=== PATIENT | female | born 1955 | race Caucasian/White ===

== ENCOUNTER 2024-06-23 01:11 | Inpatient (IN) | payer MEDICAID, SELFPAY ==
[2024-06-23] VITALS (10 sets, daily range): BP systolic 108–134; BP diastolic 61–89; PULSE 70–84; RESP 16–97; TEMP 36.1–37.2; O2SAT 97–100; BMI 23.5; BMI 20.3
--- NOTE | 2024-06-23 01:53 | EDNOTE_ITS ---
Lower Extremity Injury RME/HPI General Chief Complaint: Extremity Injury, Lower Stated Complaint: LT LEG PAIN Time Seen by Provider: 06/23/24 01:17 Arrival date/time: 06/23/24 01:11 Limitations: no limitations RME / HPI RME / HPI Narrative: Dr. Hager's Main ED Evaluation: 69yo female JUAN MANUEL from home presents to the ED for a chief complaint of left hip pain. Patient states she slipped and fell off her commode yesterday morning after trying to transfer herself from the commode to the bed. She states she hit her left-side and did hit her head, but denies any loss of consciousness. She endorses having LLE pain and a headache. She denies any neck pain, chest pain, abdominal pain, back pain or any other associated symptoms. Patient's son reports giving the patient Tylenol without any improvement. Per EMS, patient is on Plavix. Related Data Home Medications ?Medication ?Instructions ?Recorded ?Confirmed clopidogrel 75 mg tablet (Plavix) 75 mg PO QDAY 10/31/19 04/23/21 isosorbide mononitrate 60 mg 60 mg PO QDAY 10/31/19 04/23/21 tablet,extended release 24 hr ezetimibe 10 mg tablet 10 mg PO QDAY 02/18/20 04/23/21 atorvastatin 20 mg tablet 20 mg PO HS 07/23/20 04/23/21 aspirin 81 mg tablet,delayed 81 mg PO QAM 04/23/21 04/23/21 release Previous Rx's ?Medication ?Instructions ?Recorded acetaminophen 500 mg capsule 1,000 mg (2 x 500 mg) PO Q6H PRN 05/17/21 fever or pain #30 caps lisinopril 10 mg tablet 10 mg PO QDAY 30 days #30 tabs 11/19/22 levetiracetam 1,000 mg tablet 1,000 mg PO BID #60 tabs 05/08/24 levofloxacin 250 mg tablet 250 mg PO Q24H #2 tabs 05/08/24 metformin 1,000 mg tablet 1,000 mg PO BID #60 tabs 05/08/24 metoprolol succinate 50 mg capsule 50 mg PO QDAY #30 ea 05/08/24 sprinkle, ext. release 24 hr Allergies Allergy/AdvReac Type Severity Reaction Status Date / Time lettuce Allergy Severe SWELLING Verified 06/23/24 01:42 Penicillins Allergy Severe HIVES AND Verified 06/23/24 01:42 RESPIRATORY PROBLEMS shellfish derived Allergy Severe Rash Verified 06/23/24 01:42 adhesive Allergy Mild Blister Verified 06/23/24 01:42 iodine Allergy Mild RASH AND Verified 06/23/24 01:42 BLISTERS jaramillo pepper [green pepper] Allergy Unknown RASH, Verified 06/23/24 01:42 SWELLING, SORE TONGUE egg Allergy Unknown RASH Verified 06/23/24 01:42 Review of Systems Review of Systems Systems Reviewed: All systems reviewed, normal except as documented Past Medical History Past Medical History NEUROLOGIC: Positive Neurological Disorders, Cerebrovascular Accident, Transient Ischemic Attacks (TIA) and Seizures CARDIAC: Positive Cardiac Disorders, Myocardial Infarction, Angina, Coronary Artery Disease, Atherosclerotic Heart Disease, Hypercholesterolemia, Congestive Heart Failure, Edema and Hypertension RESPIRATORY: Positive Asthma; Negative Chronic Obstructive Pulmonary Disease (COPD) GASTROINTESTINAL: Positive Gastrointestinal Disorders, Gastroesophageal Reflux Disease and Obesity GENITOURINARY: Negative Genitourinary Disorders or Renal Disease MUSCULOSKELETAL: Positive Musculoskeletal Disorders, Arthritis, Degenerative Joint Disease and Osteomyelitis ENDOCRINE: Positive Endocrine Disorders, Diabetes Mellitus Type 1 and Diabetes Mellitus Type 2 HEMATOLOGIC: Negative Blood Disorders PSYCHO/SOCIAL: Positive Depression OTHER HISTORY: Positive Hospitalization, Falls, Blood Transfusions, Chemotherapy and Cancer; Negative Blood Transfusion Reaction, Anesthesia Reactions, Organ Transplant, Radiation Therapy, Hyperbaric Therapy, MRSA, Vancomycin-Resistant Enterococci or Measles Family History FAMILY HISTORY: Positive Family Respiratory Disorders, Family Cardiac Disorders, Family Cancer and Family Surgery; Negative Family Gastrointestinal Problems or Family Anesthesia Reaction Surgical History SURGICAL: Positive Cardiac Surgery, Coronary Artery Bypass Graft, Coronary Stent, Joint Replacement and Hysterectomy; Negative Organ Transplant Social History SMOKING STATUS: Never smoker SECOND HAND EXPOSURE: No SUBSTANCE USE: does not use ED Exam General Limitations: Present no limitations General appearance: Present alert, in no apparent distress and cachectic Head Head exam: Present other (abrasion to the left frontal temporal area without laceration; small hematoma, no step-off) Eye Eye exam: Present normal appearance, PERRL and EOMI ENT ENT exam: Present normal exam, normal oropharynx and mucous membranes moist Neck Neck exam: Present normal inspection, full ROM and trachea midline Chest Chest inspection: Present normal inspection and symmetric chest wall rise Respiratory Respiratory exam: Present normal lung sounds bilaterally Cardiovascular Cardiovascular exam: Present regular rate, normal rhythm and normal heart sounds Abdominal Exam Abdominal exam: Present soft and normal bowel sounds Extremities Exam Extremities exam: Present other (left hip pain on palpation without any deformity or ecchymosis; anterior left femur pain on palpation, will not move her knee, no bony tenderness, swelling or ecchymosis; missing all toes on the left foot) Back Exam Back exam: Present normal inspection and full ROM; Absent tenderness, CVA tenderness (R), CVA tenderness (L) or paraspinal tenderness Neurological Exam Neurological exam: Present alert, oriented X3 and CN II-XII intact Psychiatric Psychiatric exam: Present normal affect and normal mood Skin Skin exam: Present warm, dry, intact and normal color Course Quality Measures none Orders Category Date Time Status CT cervical spine wo con Stat Exams 06/23/24 02:[address] head/brain wo con Stat Exams 06/23/24 02:57 Taken XR femur LT 2V Stat Exams 06/23/24 05:04 Ordered XR hip LT w pelvis 2-3V Stat Exams 06/23/24 05:03 Ordered XR knee LT 3V Stat Exams 06/23/24 05:03 Ordered CBC Stat Lab 06/23/24 02:45 Completed CMP [Comprehensive Metabolic Panel] Stat Lab 06/23/24 02:45 Completed PT [Prothrombin Time with INR] Stat Lab 06/23/24 02:45 Completed PTT [Partial Thromboplastin Time] Stat Lab 06/23/24 02:45 Completed Urinalysis Stat Lab 06/23/24 03:00 Ordered Sodium Chloride 0.9% 500 ml [Ns] 500 ml Med 06/23/24 03:00 Discontinued IV 999 mls/hr fentaNYL INJ [Sublimaze Inj] Med 06/23/24 03:04 Discontinued 25 mcg IVP X1 ONE fentaNYL INJ [Sublimaze Inj] Med 06/23/24 05:48 Discontinued 25 mcg IVP X1 ONE Vital Signs Vital signs: Vital Signs Temperature 98 F 06/23/24 01:14 Pulse Rate 77 06/23/24 01:14 Respiratory Rate 18 06/23/24 01:14 Blood Pressure 134/89 H 06/23/24 01:14 Pulse Oximetry (%) 99 06/23/24 01:14 Oxygen Delivery Method Room Air 06/23/24 01:14 Pulse ox is 99% on room air, which is normal according to my interpretation. Extremity Injury, Lower Patient data External records reviewed:: [facility] previous records (Per chart review, patient was admitted here on 05/05/24 for a UTI.) Clinical information provided by:: patient and EMS Social determinants that could affect healthcare access:: none Patient has the following chronic illnesses:: DM, CVA, HTN, TIA, seizures, HLD, CAD, RI, GERD, asthma, osteomyelitis, coronary stent How is presenting disease/condition affected by chronic disease/condition?: uneffected by Evaluation data The following diagnostics were reviewed and interpreted by me:: lab results and radiology exam(s) Lab and/or radiology exams considered but not ordered:: none Interpretation Summary: WBC count is elevated at 14.4, HnH is stable at 10.6/31.5, Potassium is 5.2, Glucose is elevated at 266, LFTs are slightly elevated, according to my interpretation. ------ I have personally reviewed the radiology data and agree with the radiologist's interpretation below: Telerad Preliminary Report Draft Patient: JENARO ANTONY [facility]. Record#: [id number] Birthdate: 1955 Age/Sex: 69 / F Location: [facility] Attending Dr: Ordering Physician: Date of Service: Procedure(s): Accession Number(s): cc: ~ CT scan of the head without intravenous contrast (axial sections with sagittal and coronal reformats) June 23, 2024 0320 hours Clinical History: 69 yo w fall from bed, abrasion on left parietal. Comparison: CT of May 05, 2024. Findings: Chronic encephalomalacia in the right occipital lobe. There is no evidence of intracranial hemorrhage, mass effect or midline shift. There are periventricular white matter hypodensities, compatible with chronic small vessel ischemia. There is moderate volume loss. The calvarium is intact. The mastoid air cells and the visualized paranasal sinuses are clear. Impression: No evidence of intracranial hemorrhage, midline shift or calvarial fracture. Periventricular chronic small vessel ischemia and volume loss. Report Electronically Signed By: Thomas Ballesteros 06/23/2024 4:05:54 AM [EST] Telerad Preliminary Report Draft Patient: JENARO ANTONY [facility]. Record#: [id number] Birthdate: 1955 Age/Sex: 69 / F Location: [facility] Attending Dr: Ordering Physician: Date of Service: Procedure(s): Accession Number(s): cc: ~ CT scan of the cervical spine without intravenous contrast (axial sections with sagittal and coronal reformats) June 23, 2024 0322 hours Clinical History: [id number] fall out of bed. Comparison: CT of April 01, 2021. Findings: There is no fracture or subluxation. The prevertebral soft tissues are unremarkable. Degenerative changes of the cervical spine. Vascular calcification. Impression: No evidence of fracture or subluxation. Report Electronically Signed By: Thomas Ballesteros 06/23/2024 4:07:21 AM [EST Medications / Prescriptions Medications or Prescriptions considered but not ordered:: none Medication administrations:: Medication Administration History Discontinued Medications Fentanyl Citrate (Fentanyl Cit Inj 50 Mcg/Ml Amp 2ml) 25 mcg IVP X1 ONE Stop: 06/23/24 03:05 Last Admin: 06/23/24 03:11 Dose: 25 mcg Documented By: YENY Fentanyl Citrate (Fentanyl Cit Inj 50 Mcg/Ml Amp 2ml) 25 mcg IVP X1 ONE Stop: 06/23/24 05:49 Sodium Chloride (Ns) 500 mls @ 999 mls/hr IV .Q31M ONE Stop: 06/23/24 03:30 Last Infusion: 06/23/24 04:25 Dose: Infused Documented By: PEDRO LUIS Admin: 06/23/24 03:12 Dose: 999 mls/hr Documented By: YENY see above, if any Consultations Consultation(s) initiated? (list below): No Diagnosis Extremity Injury, Lower Differential Diagnosis: other (fx, ICH, concussion, fall with injury, fall without injury) Most likely diagnosis given after review of the tests above:: see below Admission Indicated Admission indicated?: not indicated Admission Request Was there a request for admission?: No Disposition Plan Disposition Plan: other (specify) (Signed out to Dr. Barfield at 0600 pending x-rays.) Discharge Plan Plan Patient Disposition: HOME (Self Care) Patient condition on transfer: Stable Prescriptions/Referrals Prescriptions/Med Rec: No Action clopidogrel [Plavix] 75 mg Tablet 75 mg PO QDAY isosorbide mononitrate 60 mg Tablet Extended Release 24 Hr 60 mg PO QDAY ezetimibe 10 mg Tablet 10 mg PO QDAY atorvastatin 20 mg Tablet 20 mg PO HS aspirin 81 mg tablet,delayed release (DR/EC) 81 mg PO QAM Patient Comments: TAKE ONE TABLET BY MOUTH EVERY DAY IN THE MORNING acetaminophen 500 mg capsule 1,000 mg PO Q6H PRN (Reason: fever or pain) Qty: 30 0RF lisinopril 10 mg tablet 10 mg PO QDAY 30 Days Qty: 30 2RF levofloxacin 250 mg tablet 250 mg PO Q24H Qty: 2 0RF levetiracetam 1,000 mg tablet 1,000 mg PO BID Qty: 60 0RF metoprolol succinate 50 mg capsule,sprinkle,ER 24hr 50 mg PO QDAY Qty: 30 0RF metformin 1,000 mg tablet 1,000 mg PO BID Qty: 60 0RF Referrals: Wendy New FNP [Primary Care Provider] - In 1 week Problem List Clinical Impression: Headache Patient/Caregiver Discharge Instructions Diet Instructions: Stay hydrated with Pedialyte and Gatorade. Education Materials: Self-Care for Headaches Additional Instructions: Return to the emergency department worsening symptoms or any other concerns. You can take [id number] Tylenol 650 mg 3 times a day for the next 5 days. Print Language: French Stand Alone Forms: [facility] Award Info., Patient Portal Info Letter
--- NOTE | 2024-06-23 02:54 | XR_ITS ---
Examination: CT cervical spine without contrast 2-D sagittal reconstructions 2-D coronal reconstructions 3-D reconstructions. Exam date and time:June 23, 2024 0322 hrs. Indications: Patient fell out of bed this morning with injury to the neck, neck pain Comparison: 04/02/2021 CTDI:vol (mGy) 11.56 DLP: (mGycm) 85 Technique: Multiple 2 mm axial sections of the cervical spine have been obtained. The coronal and sagittal reconstructions have been obtained. 3-D reconstructions have been obtained. Low dose protocols were performed. One or more of the following dose reduction techniques were used; automated exposure control, adjustment of the mA and/or KV according to patient size, use of iterative reconstruction technique. Findings: Axial sections demonstrate intact base of the skull. C1 exhibit satisfactory relationship to the odontoid. No acute cervical vertebral body fracture seen. Alignment posterior spinous processes satisfactory. Impression: No acute cervical fracture.
--- NOTE | 2024-06-23 02:57 | XR_ITS ---
Examination: CT brain head without contrast. 2-D sagittal coronal reconstructions Date and time of exam:June 23, 2024 0320 hrs. Indications: Patient fell from bed today with injury to the head, head pain CTDI: vol (mGy):43.60 DLP: (mGycm):892 Technique: Multiple CT axial sections of the brain have been obtained, 5 mm slice thickness. Contrast has not been administered. 2-D sagittal, coronal reconstructions have been obtained Low dose protocols were performed. One or more of the following dose reduction techniques were used; automated exposure control, adjustment of the mA and/or KV according to patient size, use of iterative reconstruction technique. Findings: No significant ventricular enlargement. Old infarct right occipital lobe is stable compared with May 05, 2024 Intra-axial or extra-axial hemorrhage density is not seen. No mass effect or midline shift Basal cisterns are not remarkable. Fourth ventricle is midline. Cranial vault intact. Impression: Negative for acute hemorrhage, mass effect or midline shift
[2024-06-23] MEDS: fentaNYL CIT INJ 50 mCg/ML AMP 2ML 25 MCG IVP ×2 (03:11→05:52)
[2024-06-23] MEDS: SODIUM CHLORIDE 0.9% 500 ML 500 ML 999 ML IV (03:12)
[2024-06-23 03:19] LABS: Basophils % (Auto) 0 % (0-2.5); Eosinophils % (Auto) 0 % (0-10); Hematocrit 31.5 % (36.0-46.0); Hemoglobin 10.6 g/dL (12.0-16.0); Immature Granulocytes % (Auto) 0 % (0-0); Immature Granulocytes Auto 0.06 Thou/mm3 (0.00-0.00); Lymphocytes % (Auto) 7 % (10-50); Mean Corpuscular HGB Conc 33.7 g/dl (31.0-37.0); Mean Corpuscular Hemoglobin 28.3 pg (25.0-35.0); Mean Corpuscular Volume 84 fL (80-100); Monocytes # (Auto) 1.2 Thou/mm3 (0.0-0.8); Monocytes % (Auto) 8 % (0-12); Neutrophils # (Auto) 12.2 Thou/mm3 (1.8-7.7); Neutrophils % (Auto) 84 % (37-80); Nucleated Red Blood Cell % 0 /100 WBC (0); Platelet Count 196 Thou/mm3 (140-440); RDW Standard Deviation 50.8 fL (36.4-46.3); Red Blood Count 3.75 Miln/mm3 (4.00-5.20); White Blood Count 14.4 Thou/mm3 (3.6-11.0)
[2024-06-23 03:47] LABS: Partial Thromboplastin Time 26.8 Seconds (22.0-36.0); Prothrombin Time 11.1 Seconds (9.0-12.2)
[2024-06-23 03:49] LABS: Alanine Aminotransferase 79 U/L (10-49); Albumin, Serum 4.1 gm/dL (3.4-4.8); Albumin/Globulin Ratio 1.6 (1.2-2.2); Alkaline Phosphatase 117 U/L (46-116); Anion Gap 12 (7-16); Aspartate Amino Transferase 39 U/L (0-34); BUN/Creatinine Ratio 41 Ratio (12-20); Bilirubin,Total 0.4 mg/dL (0.3-1.2); Blood Urea Nitrogen 53 mg/dL (9-23); Calcium 9.7 mg/dL (8.3-10.6); Calcium (Corrected) 9.7 mg/dL (8.5-10.1); Carbon Dioxide 24.6 mMol/L (20.0-31.0); Chloride 102 mMol/L (98-107); Creatinine (Component) 1.3 mg/dL (0.6-1.3); Estimated Creatinine Clearance 38.6 mL/min (>60); Globulin 2.5 gm/dL (2.3-3.5); Glucose 266 mg/dL (74-106); Osmolality,Calculated 300 (275-295); Potassium 5.2 mMol/L (3.4-5.1); Sodium 139 mMol/L (136-145); Total Protein 6.6 gm/dL (5.7-8.2); eGFR 44 See Note
--- NOTE | 2024-06-23 04:06 | PRELIM_ITS ---
CT scan of the head without intravenous contrast (axial sections with sagittal and coronal reformats) June 23, 2024 0320 hoursClinical History: 69 yo w fall from bed, abrasion on left parietal.Stanislav rison: CT of May 05, 2024.Findings:Chronic encephalomalacia in the right occipital lobe.There is no evidence of intracranial hemorrhage, mass effect or midline shift. There are periventricular white matter hypodensities, compatible with chronic small vessel ischemia. There is moderate volume loss. The calvarium is intact. The mastoid air cells and the visualized paranasal sinuses are clear.Impress ion:No evidence of intracranial hemorrhage, midline shift or calvarial fracture.Periventricular chron ic small vessel ischemia and volume loss. Report Electronically Signed By: Thomas Ballesteros 4 4:05:54 AM [EST]
--- NOTE | 2024-06-23 04:08 | PRELIM_ITS ---
CT scan of the cervical spine without intravenous contrast (axial sections with sagittal and coronal reformats) June 23, 2024 0322 hours Clinical History: [id number] fall out of bed. Comparison: CT of April 01, 2021.Findings:There is no fracture or subluxation. The prevertebral soft tissues are unremarkable.Degenerative changes of the cervical spine. Vascular calcification.Impression:No ev idence of fracture or subluxation. Report Electronically Signed By: Thomas Ballesteros 06/23/2024 4:07: 21 AM [EST]
--- NOTE | 2024-06-23 05:03 | XR_ITS ---
Examination: Knee, left , 3 views Technique: Knee AP, lateral, oblique 3 views Date and time of exam: June 23, 2024 0539 hrs. Indications: Patient fell from bed this morning with injury to the knee, knee pain Findings: Severe osteopenia No definite fracture Advanced joint narrowing Small knee effusion Heavy soft tissue vascular calcification Impression: No acute fracture depicted Given the severe osteopenia, recommend short-term follow-up knee films as clinically warranted
--- NOTE | 2024-06-23 05:03 | XR_ITS ---
Examination:Left hip AP, lateral, AP pelvis 3 views Technique: Hip AP lateral, AP pelvis, 3 views Exam date and time:June 23, 2024 0539 hrs. Indications: Patient fell from bed this morning with injury to the hip, hip pain Findings: Displaced left hip fracture, partly intertrochanteric and low femoral neck with significant upward displacement of the left femoral shaft Right hip bones of the pelvis intact Impression: Displaced left hip fracture
--- NOTE | 2024-06-23 05:04 | XR_ITS ---
Examination: Left femur 2 views Technique: AP lateral left femur 2 views Exam date and time: June 13, 2024 0559 hrs. Indications: Patient fell from bed this morning with injury to the femur, hip pain Findings: Displaced left hip fracture, partly intertrochanteric and partly low femoral neck Significant upward displacement of the femoral shaft The examination is labeled femur but the images do not include the hip and proximal shaft of the femur Impression: Displaced left hip fracture These films do not include most of the femoral shaft
--- NOTE | 2024-06-23 06:31 | PD.EDADDENDU ---
Emergency Room Addendum Addendum Narrative: 0600: Care assumed from Dr. Hager, the previous shift emergency physician. Past medical, surgical, social and family history reviewed. Vitals and home medications reviewed. I will assume the care of the patient at this time, pending XR reports. Please refer to the emergency department record for history and examination from initial visit.? Nursing notes reviewed by me. Vital signs reviewed by me. [facility] medical records reviewed by me. 0705: 69 year old female presented to the ED BIBA from home for evaluation of pain after ground level mechanical fall 3 days ago. States since fall she is unable to get up and walk. At home is getting around with a wheelchair. States she has had surgery on one of her legs
--- NOTE | 2024-06-23 07:10 | EDNOTE_ITS ---
Lower Extremity Injury RME/HPI General Chief Complaint: Extremity Injury, Lower Stated Complaint: LT LEG PAIN Time Seen by Provider: 06/23/24 01:17 Arrival date/time: 06/23/24 01:11 Limitations: no limitations RME / HPI RME / HPI Narrative: Dr. Hager's Main ED Evaluation: 69yo female JUAN MANUEL from home presents to the ED for a chief complaint of left hip pain. Patient states she slipped and fell off her commode yesterday morning after trying to transfer herself from the commode to the bed. She states she hit her left-side and did hit her head, but denies any loss of consciousness. She endorses having LLE pain and a headache. She denies any neck pain, chest pain, abdominal pain, back pain or any other associated symptoms. Patient's son reports giving the patient Tylenol without any improvement. Per EMS, patient is on Plavix. 0600: Care assumed from Dr. Hager, the previous shift emergency physician. Past medical, surgical, social and family history reviewed. Vitals and home medications reviewed. I will assume the care of the patient at this time, pending XR reports. This is a 69 year old female with history of CVA, CAD s/p CABG, diabetes, and seizures presented to the ED JUAN MANUEL from home for evaluation of left hip pain after ground level mechanical fall 3 days ago. States since fall she is unable to get up and walk. At home is getting around with a wheelchair. States she has had surgery on her left foot before and per EMR review on 11/12/2022 left foot incision and drainage, debridement of non viable soft tissue, and transmetatarsal amputation. Related Data Home Medications ?Medication ?Instructions ?Recorded ?Confirmed clopidogrel 75 mg tablet (Plavix) 75 mg PO QDAY 10/31/19 04/23/21 isosorbide mononitrate 60 mg 60 mg PO QDAY 10/31/19 04/23/21 tablet,extended release 24 hr ezetimibe 10 mg tablet 10 mg PO QDAY 02/18/20 04/23/21 atorvastatin 20 mg tablet 20 mg PO HS 07/23/20 04/23/21 aspirin 81 mg tablet,delayed 81 mg PO QAM 04/23/21 04/23/21 release Previous Rx's ?Medication ?Instructions ?Recorded acetaminophen 500 mg capsule 1,000 mg (2 x 500 mg) PO Q6H PRN 05/17/21 fever or pain #30 caps lisinopril 10 mg tablet 10 mg PO QDAY 30 days #30 tabs 11/19/22 levetiracetam 1,000 mg tablet 1,000 mg PO BID #60 tabs 05/08/24 levofloxacin 250 mg tablet 250 mg PO Q24H #2 tabs 05/08/24 metformin 1,000 mg tablet 1,000 mg PO BID #60 tabs 05/08/24 metoprolol succinate 50 mg capsule 50 mg PO QDAY #30 ea 05/08/24 sprinkle, ext. release 24 hr Allergies Allergy/AdvReac Type Severity Reaction Status Date / Time lettuce Allergy Severe SWELLING Verified 06/23/24 01:42 Penicillins Allergy Severe HIVES AND Verified 06/23/24 01:42 RESPIRATORY PROBLEMS shellfish derived Allergy Severe Rash Verified 06/23/24 01:42 adhesive Allergy Mild Blister Verified 06/23/24 01:42 iodine Allergy Mild RASH AND Verified 06/23/24 01:42 BLISTERS jaramillo pepper [green pepper] Allergy Unknown RASH, Verified 06/23/24 01:42 SWELLING, SORE TONGUE egg Allergy Unknown RASH Verified 06/23/24 01:42 Review of Systems Review of Systems Narrative Review of Systems: Constitutional: DENIES; Fevers Eyes: DENIES; Loss of vision Head/Ear/Nose: DENIES; Loss of hearing Throat: DENIES; Dysphagia Cardiovascular: DENIES; Chest pain, dyspnea or syncope Respiratory: DENIES; Shortness of breath Gastrointestinal: DENIES; Rectal bleeding or melena. Genitourinary: DENIES; Dysuria (painful or difficult urination) Musculoskeletal: SEE HPI +left hip pain. DENIES; Arthralgia (pain in a joint),; Skin: DENIES; Rash Neurological: DENIES; Loss of function or movement Psychiatric: DENIES; recent major life stressor, emotional problem, illicit drug use or abuse Endocrinology: DENIES; Weight change Hematologic/Lymphatic: DENIES; Abnormal bruising Allergic/Immunologic: DENIES; Urticaria (hives) Past Medical History Past Medical History NEUROLOGIC: Positive Neurological Disorders, Cerebrovascular Accident, Transient Ischemic Attacks (TIA) and Seizures CARDIAC: Positive Cardiac Disorders, Myocardial Infarction, Angina, Coronary Artery Disease, Atherosclerotic Heart Disease, Hypercholesterolemia, Congestive Heart Failure, Edema and Hypertension RESPIRATORY: Positive Asthma GASTROINTESTINAL: Positive Gastrointestinal Disorders, Gastroesophageal Reflux Disease and Obesity MUSCULOSKELETAL: Positive Musculoskeletal Disorders, Arthritis, Degenerative Joint Disease and Osteomyelitis ENDOCRINE: Positive Endocrine Disorders, Diabetes Mellitus Type 1 and Diabetes Mellitus Type 2 PSYCHO/SOCIAL: Positive Depression OTHER HISTORY: Positive Hospitalization, Falls, Blood Transfusions and Cancer Family History FAMILY HISTORY: Positive Family Respiratory Disorders, Family Cardiac Disorders, Family Cancer and Family Surgery Surgical History SURGICAL: Positive Cardiac Surgery, Coronary Artery Bypass Graft, Coronary Stent, Joint Replacement and Hysterectomy Social History SMOKING STATUS: Never smoker SECOND HAND EXPOSURE: No SUBSTANCE USE: does not use ED Exam Narrative Physical exam: Physical Exam: General: The vital signs were reviewed. The patient is non-toxic, in no apparent distress and appears healthy with a patent airway, no respiratory distress and has no apparent circulatory problems. Head & Scalp: Normocephalic, atraumatic. Face: Appears normal and is without lesions, deformity. Ears: Left external pinna appears normal. Right external pinna appears normal. Eyes: The sclera is anicteric. No obvious photophobia. The Left and Right Orbit/Lid/Conjunctiva appears normal without swelling, discoloration or in jection. Nose: The nose is without deformity, discharge or tenderness; Throat: Appears normal. The mucous membranes are pink and moist without exudates, redness or mass seen. The tongue appears normal. Neck: The neck is supple and no apparent mass or adenopathy. Chest: The chest wall is normal in size and symmetry and has no chest wall tenderness or crepitus. The patient displays normal ventilator effort without retractions, accessory muscle use and has adequate air movement bilaterally with no wheezes and no rales. Cardiovascular: Regular rate and rhythm; No murmurs, rubs, or gallops; Gastrointestinal: The abdomen appears normal. No obvious hernias or mass. The abdomen is soft and benign, non-distended, with no pain, no guarding and no rebound tenderness. Bowel sounds are present and normal sounding. No CVA tenderness. Genitourinary: Back/Spine: No obvious discomfort Extremities/Musculoskeletal/lymphatic: The bilateral upper and lower extremities are warm. There is no evidence of arterial insufficiency. There is no evidence of venous insufficiency/edema. The patient spontaneously moves bilateral upper patient's rolled onto her right side that she has pain in the left hip area with pain with any minimal movement. The right side does not appear to have any pain on palpation with minimal movement but she has so much pain on her left side it is hard to want to roll her over at this time. There is external signs of injury or trauma. Skin: The skin is warm, dry and intact. No rashes. No petechia. No purpura. No abnormal bruising. The color is appropriate with no cyanosis. Mental status/Psychiatric: Mental status is appropriate for age. The patient has no apparent delusions, visual hallucinations, no apparent aud ible hallucinations. The patient has no apparent suicidal thoughts/ideation and no apparent homicidal thoughts/ideation. Neurological: The patient is awake, alert, interactive, cordial, cooperative and is oriented to name and situation. The patient follows commands and answers historical question with no impairment. There is no visual disturbance apparent. The pupils are equal and reactive bilaterally with normal eye movements and no diplopia The bilateral upper and lower extremities have normal strength, normal range of motion and normal functioning. The gait, station and balance not tested due to acuity General Limitations: Present no limitations General appearance: Present alert, in no apparent distress and cachectic Course Quality Measures none Orders Category Date Time Status Juan [Urinary Catheter] QS Care 06/23/24 07:[address] cervical spine wo con Stat Exams 06/23/24 02:[address] head/brain wo con Stat Exams 06/23/24 02:57 Completed XR chest 1V portable Stat Exams 06/23/24 08:29 Completed XR femur LT 2V Stat Exams 06/23/24 05:04 Completed XR hip LT w pelvis 2-3V Stat Exams 06/23/24 05:03 Completed XR knee LT 3V Stat Exams 06/23/24 05:03 Completed CBC Stat Lab 06/23/24 02:45 Completed CK [Creatine Kinase] Stat Lab 06/23/24 09:00 Completed CMP [Comprehensive Metabolic Panel] Stat Lab 06/23/24 02:45 Completed PT [Prothrombin Time with INR] Stat Lab 06/23/24 02:45 Completed PTT [Partial Thromboplastin Time] Stat Lab 06/23/24 02:45 Completed UA [Urinalysis] Stat Lab 06/23/24 08:27 Completed Morphine Inj Med 06/23/24 07:44 Discontinued 2 mg IVP X1 ONE Ondansetron Inj [Zofran Inj] Med 06/23/24 07:46 Discontinued 4 mg IV X1 ONE Sodium Chloride 0.9% 1000 ml [Ns] 1,000 ml Med 06/23/24 08:25 Discontinued IV 125 mls/hr Sodium Chloride 0.9% 500 ml [Ns] 500 ml Med 06/23/24 03:00 Discontinued IV 999 mls/hr fentaNYL INJ [Sublimaze Inj] Med 06/23/24 03:04 Discontinued 25 mcg IVP X1 ONE fentaNYL INJ [Sublimaze Inj] Med 06/23/24 05:48 Discontinued 25 mcg IVP X1 ONE Vital Signs Vital signs: Vital Signs Temperature 98 F 06/23/24 01:14 Pulse Rate 77 06/23/24 01:14 Respiratory Rate 18 06/23/24 01:14 Blood Pressure 134/89 H 06/23/24 01:14 Pulse Oximetry (%) 99 06/23/24 01:14 Oxygen Delivery Method Room Air 06/23/24 01:14 Pulse ox is 99% on room air which is adequate. Extremity Injury, Lower MDM Narrative MDM Narrative:: Patient is a 69-year-old who evidently fell 3 days ago who comes in with left hip pain has an obvious intertrochanteric comminuted fracture on her x-ray. Evidently patient fell and has not been drinking well as the BUN is 53 and the creatinine is 1.3. Other labs show a white count of 14 for hemoglobin of 10.6. Osmolality is elevated at 300. AST ALT are 39 and 79 slightly elevated. UA is still pending a catheter was placed. X-rays left femur reveal a displaced hip fracture through the neck but no fracture through the shaft was seen. This was reviewed by myself. CT of the head and neck were reported negative. X-rays of the pelvis and hip again revealed a displaced hip fracture. No other fracture is seen. The UA is pending as of 0834 hrs. Patient is to be admitted we put a call out to Dr. Jolie Wallace Patient is probably quite dry due to the elevated BUN/creatinine ratio because the patient was down we will get a CPK make sure there is no rhabdo going on. Orthopedic surgeon I left a message with him and we called the hospitalist Dr. Giraldo the resident took the message and they will be admitting with Dr. Dallas. Will be hydrating this patient Patient data External records reviewed:: [facility] previous records (I reviewed admission from 05/06/2024 through 05/08/2024) and EMS form Clinical information provided by:: patient Social determinants that could affect healthcare access:: none Patient has the following chronic illnesses:: CVA, CAD s/p CABG, diabetes, and seizures How is presenting disease/condition affected by chronic disease/condition?: uneffected by Evaluation data The following diagnostics were reviewed and interpreted by me:: lab results and radiology exam(s) (CXR interpreted by myself, previous sternotomy wires, no infiltrates, normal cardiac silhouette) Lab and/or radiology exams considered but not ordered:: None Interpretation Summary: Ordering Physician: Yasmin Hager MD Date of Service: 06/23/24 Procedure(s): CT cervical spine wo con Accession Number(s): [id number] cc: Wendy New; Ángel Foster MD; Yasmin Hager MD~ Examination: CT cervical spine without contrast 2-D sagittal reconstructions 2-D coronal reconstructions 3-D reconstructions. Exam date and time:June 23, 2024 0322 hrs. Indications: Patient fell out of bed this morning with injury to the neck, neck pain Comparison: 04/02/2021 CTDI:vol (mGy) 11.56 DLP: (mGycm) 85 Technique: Multiple 2 mm axial sections of the cervical spine have been obtained. The coronal and sagittal reconstructions have been obtained. 3-D reconstructions have been obtained. Low dose protocols were performed. One or more of the following dose reduction techniques were used; automated exposure control, adjustment of the mA and/or KV according to patient size, use of iterative reconstruction technique. Findings: Axial sections demonstrate intact base of the skull. C1 exhibit satisfactory relationship to the odontoid. No acute cervical vertebral body fracture seen. Alignment posterior spinous processes satisfactory. Impression: No acute cervical fracture. Dictated By: Ángel Foster MD Signed By: <Electronically signed by Ángel Foster MD in OV> 06/23/24 0751 === Ordering Physician: Yasmin Hager MD Date of Service: 06/23/24 Procedure(s): CT head/brain wo con Accession Number(s): [id number] cc: Wendy New FINANCE CLERK; Ángel Foster MD; Yasmin Hager MD~ Examination: CT brain head without contrast. 2-D sagittal coronal reconstructions Date and time of exam:June 23, 2024 0320 hrs. Indications: Patient fell from bed today with injury to the head, head pain CTDI: vol (mGy):43.60 DLP: (mGycm):892 Technique: Multiple CT axial sections of the brain have been obtained, 5 mm slice thickness. Contrast has not been administered. 2-D sagittal, coronal reconstructions have been obtained Low dose protocols were performed. One or more of the following dose reduction techniques were used; automated exposure control, adjustment of the mA and/or KV according to patient size, use of iterative reconstruction technique. Findings: No significant ventricular enlargement. Old infarct right occipital lobe is stable compared with May 05, 2024 Intra-axial or extra-axial hemorrhage density is not seen. No mass effect or midline shift Basal cisterns are not remarkable. Fourth ventricle is midline. Cranial vault intact. Impression: Negative for acute hemorrhage, mass effect or midline shift Dictated By: Ángel Foster MD Signed By: <Electronically signed by Ángel Foster MD in OV> 06/23/24 0750 === Ordering Physician: Yasmin Hager MD Date of Service: 06/23/24 Procedure(s): XR hip LT w pelvis 2-3V Accession Number(s): [id number] cc: Wendy New; nÁgel Foster MD; Yasmin Hager MD~ Examination:Left hip AP, lateral, AP pelvis 3 views Technique: Hip AP lateral, AP pelvis, 3 views Exam date and time:June 23, 2024 0539 hrs. Indications: Patient fell from bed this morning with injury to the hip, hip pain Findings: Displaced left hip fracture, partly intertrochanteric and low femoral neck with significant upward displacement of the left femoral shaft Right hip bones of the pelvis intact Impression: Displaced left hip fracture Dictated By: Ángel Foster MD Signed By: <Electronically signed by Ángel Foster MD in OV> 06/23/24 0730 Ordering Physician: Yasmin Hager MD Date of Service: 06/23/24 Procedure(s): XR knee LT 3V Accession Number(s): [id number] cc: Wendy New; Ángel Foster MD; Yasmin Hager MD~ Examination: Knee, left , 3 views Technique: Knee AP, lateral, oblique 3 views Date and time of exam: June 23, 2024 0539 hrs. Indications: Patient fell from bed this morning with injury to the knee, knee pain Findings: Severe osteopenia No definite fracture Advanced joint narrowing Small knee effusion Heavy soft tissue vascular calcification Impression: No acute fracture depicted Given the severe osteopenia, recommend short-term follow-up knee films as clinically warranted Dictated By: Ángel Foster MD Signed By: <Electronically signed by Ángel Foster MD in OV> 06/23/24 0731 Ordering Physician: Yasmin Hager MD Date of Service: 06/23/24 Procedure(s): XR femur LT 2V Accession Number(s): [id number] cc: Wendy New; Ángel Foster MD; Yasmin Hager MD~ Examination: Left femur 2 views Technique: AP lateral left femur 2 views Exam date and time: June 13, 2024 0559 hrs. Indications: Patient fell from bed this morning with injury to the femur, hip pain Findings: Displaced left hip fracture, partly intertrochanteric and partly low femoral neck Significant upward displacement of the femoral shaft The examination is labeled femur but the images do not include the hip and proximal shaft of the femur Impression: Displaced left hip fracture These films do not include most of the femoral shaft Dictated By: Ángel Foster MD Signed By: <Electronically signed by Ángel Foster MD in OV> 06/23/24 0732 Medications / Prescriptions Medications or Prescriptions considered but not ordered:: None Medication administrations:: Medication Administration History Acetaminophen (Acetaminophen 325 Mg Tablet) 650 mg PO Q6H PRN PRN Reason: Fever >100.3 or pain 1-3 Stop: 07/23/24 09:47 Hydrocodone Bitart/Acetaminophen (Hydrocodone/Apap 5/325 Tablet) 1 tab PO Q4HR PRN PRN Reason: PAIN SCALE 4-10(Mod-Sev Stop: 06/28/24 09:47 Dextrose (Dextrose 50%-Water Inj 50 Ml Syringe) 25 ml IV Q15MIN PRN PRN Reason: BG 50-70 responsive npo pt Stop: 07/23/24 09:58 Dextrose (Dextrose 50%-Water Inj 50 Ml Syringe) 50 ml IV Q15MIN PRN PRN Reason: BG <50 OR BG <70 & pt unresponsive Stop: 07/23/24 09:58 Glucagon (Glucagon Inj 1 Mg Vial) 1 mg IM Q15MIN PRN PRN Reason: BG <70, and no IV access Sodium Chloride (Ns) 1,000 mls @ 70 mls/hr IV .[id number] ONE Stop: 06/23/24 22:42 Last Admin: 06/23/24 12:02 Dose: 70 mls/hr Documented By: TONE Insulin Human Lispro (Insulin Lispro (Admelog) 1 Unit/0.01 Ml Unit) 0 unit SC ACHS [facility]; Protocol Stop: 07/23/24 11:29 Last Admin: 06/23/24 12:02 Dose: Not Given Documented By: TONE Non-Admin Reason: Per Protocol Isosorbide Mononitrate (Isosorbide Er Mononitrate 30 Mg Tabcr) 60 mg PO QDAY [facility] Stop: 07/24/24 08:59 Levetiracetam (Levetiracetam 250 Mg Tablet) 1,000 mg PO BID [facility] Stop: 07/23/24 20:59 Morphine Sulfate (Morphine Sulf Inj 10 Mg/Ml Vial) 2 mg IVP Q4HR PRN PRN Reason: BREAKTHROUGH PAIN Stop: 06/28/24 09:47 Last Admin: 06/23/24 16:48 Dose: 2 mg Documented By: Admin: 06/23/24 12:29 Dose: 2 mg Documented By: FRANKLYN Discontinued Medications Fentanyl Citrate (Fentanyl Cit Inj 50 Mcg/Ml Amp 2ml) 25 mcg IVP X1 ONE Stop: 06/23/24 03:05 Last Admin: 06/23/24 03:11 Dose: 25 mcg Documented By: YENY Fentanyl Citrate (Fentanyl Cit Inj 50 Mcg/Ml Amp 2ml) 25 mcg IVP X1 ONE Stop: 06/23/24 05:49 Last Admin: 06/23/24 05:52 Dose: 25 mcg Documented By: YENY Heparin Sodium (Porcine) (Heparin Sod Inj 5000 Unit/Ml Vial) 5,000 unit SC BID [facility] Stop: 07/07/24 09:59 Last Admin: 06/23/24 11:20 Dose: 5,000 unit Documented By: FRANKLYN Co-signed By: TONE Sodium Chloride (Ns) 500 mls @ 999 mls/hr IV .Q31M ONE Stop: 06/23/24 03:30 Last Infusion: 06/23/24 04:25 Dose: Infused Documented By: PEDRO LUIS Admin: 06/23/24 03:12 Dose: 999 mls/hr Documented By: YENY Sodium Chloride (Ns) 1,000 mls @ 125 mls/hr IV .Q8H ONE Stop: 06/23/24 16:24 Last Infusion: 12/19/24 12:03 Dose: Infused Documented By: Admin: 06/23/24 08:51 Dose: 125 mls/hr Documented By: TONE Morphine Sulfate (Morphine Sulf Inj 10 Mg/Ml Vial) 2 mg IVP X1 ONE Stop: 06/23/24 07:45 Last Admin: 06/23/24 08:08 Dose: 2 mg Documented By: TONE Ondansetron HCl (Ondansetron Inj 2 Mg/Ml Inj 2 Ml) 4 mg IV X1 ONE; Protocol Stop: 06/23/24 07:47 Last Admin: 06/23/24 08:12 Dose: 4 mg Documented By: TONE See above Consultations Consultation(s) initiated? (list below): Yes Consultation #1 (Physician, Specialty, Details): I spoke with resident Dr. Oakes working with Dr. Dallas. Discussed patients PMHx, HPI, ED course, exam findings, labs, and radiology results. The hospitalist agree to accept the patient for admission. At this time pending call back from ortho. Time: 08:14 Consultation #2 (Physician, Specialty, Details): I spoke with ortho Dr. Bautista. Discussed patients PMHx, HPI, ED course, exam findings, labs, and radiology results. He agrees to consult. Time: 10:30 Diagnosis Most likely diagnosis given after review of the tests above:: Fall Fracture of hip, left, closed Acute dehydration Elevated transaminase level Admission Indicated Admission indicated?: indicated Admission Request Was there a request for admission?: Yes Admission Attestation Admission request attestation: Discussed case with [] from Hospitalist service regarding admission. Discussed patients ED course, exam findings, labs, and radiology results. The Hospitalist [agrees,declines] to accept the patient for admission. Disposition Plan Disposition Plan: Admit Discharge Plan Plan Patient Disposition: Admit Acute Care w/in Hospital Disposition Comment: Hospitalist admit Ortho to consult Patient condition on transfer: Stable Problem List Clinical Impression: Fall, Fracture of hip, left, closed, Acute dehydration, Elevated transaminase level Patient/Caregiver Discharge Instructions Diet Instructions: Stay hydrated with Pedialyte and Gatorade.
[2024-06-23] MEDS: MORPHINE SULF INJ 10 MG/ML VIAL 2 MG IVP ×3 (08:08→16:48)
[2024-06-23] MEDS: ONDANSETRON INJ 2 MG/ML INJ 2 ML 4 MG IV (08:12)
[2024-06-23 08:28] LABS: Collection Type, Urine Catheter
--- NOTE | 2024-06-23 08:29 | XR_ITS ---
Examination: AP chest single view Technique one AP portable semiupright chest single view Exam date and time: June 23, 2024 0834 hours Comparison May 05, 2024 INDICATIONS: Onset chest pain today. FINDINGS: Normal heart size CABG No pneumonia or pulmonary edema IMPRESSION: No pneumonia or pulmonary edema
[2024-06-23] MEDS: SODIUM CHLORIDE 0.9% 1000 ML 1,000 ML 125 ML IV (08:51)
[2024-06-23 09:15] LABS: Creatine Kinase 451 U/L (34-171)
[2024-06-23 09:25] LABS: Bilirubin,Urine 1+ (Negative); Blood,Urine Negative (Negative); Color,Urine Yellow (Lt Yel-Yel); Glucose, Urine Negative (Negative); Hyaline Casts,Urine < 1 /hpf (0-1); Ketones,Urine Trace (Negative); Leukocyte Esterase,Urine Positive (Negative); Nitrite,Urine Negative (Negative); PH,Urine 5.5 (5.0-7.0); Protein,Urine 1+ (Neg - Trace); RBC,Urine 3 /hpf (0-3); Specific Gravity,Urine 1.026 (1.001-1.035); Squamous Epithelial Cell,Urine 3 /hpf (0-5); WBC,Urine 5 /hpf (0-5)
[2024-06-23 09:27] LABS: Clarity,Urine Hazy (Clear/Hazy)
[2024-06-23 09:28] LABS: Bacteria,Urine 1+
--- NOTE | 2024-06-23 10:46 | PC.CC ---
Patient is a 69 year-old female who presented to the hospital for a hip fracture. Cecille THURMAN made [id number] contact with patient. ASW introduced self, role, and reason for visit. Patient appeared alert and oriented to self, location, and situation. Patient was pleasant and engaged in initial assessment. Patient confirmed information on demographics and reports to living at home with her son, Jorge Comer . Patient reports her son helps take care of her. Per patient, prior to being admitted to the hospital she was able to ambulate with the assistance of a walker. The patient is not able to complete her ADLs and her son helps her complete her ADLs. Patient receives primary care with Wendy New. Patient stated her Next of Kin is her son, Jorge Comer . Upon discharge patient reports she is open to going to a Assisted Facility if she needs rehab services. account services representative to follow-up with any discharge needs.
[2024-06-23] MEDS: HEPARIN SOD INJ 5000 UNIT/ML VIAL SC (11:20)
[2024-06-23] MEDS: SODIUM CHLORIDE 0.9% 1000 ML 1,000 ML 70 ML IV (12:02)
--- NOTE | 2024-06-23 13:43 | ECHO_ITS ---
Transthoracic Echo Report Ht (in): 67 Wt (lb): 150 Exam Location: Portable Status: Inpatient Correctional Captain: Hillary Hoover Indications: Procedure Performed: BP: 114 / 59 HR: 88 Rhythm: Tachycardia Technical Quality: Technically difficult study MEASUREMENTS (Male / Female) Normal Values 2D ECHO LV Diastolic Diameter PLAX 3.7 cm 4.2 - 5.9 / 3.9 - 5.3 cm LV Systolic Diameter PLAX 2.8 cm IVS Diastolic Thickness 1.0 cm 0.6 - 1.0 / 0.6 - 0.9 cm LVPW Diastolic Thickness 0.9 cm 0.6 - 1.0 / 0.6 - 0.9 cm LV Relative Wall Thickness 0.5 LVOT Diameter 1.7 cm Ascending Aorta Diameter 2.6 cm M-MODE Aortic Root Diameter MM 2.5 cm LA Systolic Diameter MM 3.5 cm LA Ao Ratio MM 1.4 AV Cusp Separation MM 1.3 cm DOPPLER AV Peak Velocity 304.8 cm/s AV Peak Gradient 37.2 mmHg AV Mean Gradient 20.2 mmHg AV Velocity Time Integral 54.9 cm LVOT Peak Velocity 96.9 cm/s LVOT Peak Gradient 3.8 mmHg LVOT Velocity Time Integral 17.0 cm LVOT Cardiac Index 1887.8 cm?/min?m? AV Area Cont Eq vti 0.7 cm? AV Area Cont Eq pk 0.7 cm? MV Peak Velocity 159.5 cm/s MV Peak Gradient 10.2 mmHg MV Mean Velocity 99.7 cm/s MV Mean Gradient 5.0 mmHg MV Area PHT 5.5 cm? Mitral E Point Velocity 102.0 cm/s Mitral A Point Velocity 144.0 cm/s Mitral E to A Ratio 0.7 LV E' Lateral Velocity 7.4 cm/s Mitral E to LV E' Lateral Ratio 13.8 LV E' Septal Velocity 7.1 cm/s Mitral E to LV E' Septal Ratio 14.4 FINDINGS Left Ventricle Normal left ventricular size, systolic function with no obvious regional wall motion abnormalities. Mild LVH. The ejection fraction is visually estimated at 60-65 %. Right Ventricle The right ventricle is normal in size and systolic function. Left Atrium The left atrium is normal by two-dimensional, color flow and Doppler imaging with no structural abnormalities, no thrombus formation present. Right Atrium The right atrium is normal by two-dimensional imaging, color flow and Doppler imaging with no struct ural abnormalities, no thrombus formation present. Atrial Septum The interatrial septum appears normal with no evidence of a shunt. Aorta The aorta is normal by two-dimensional, color flow and Doppler interrogation. Mitral Valve The mitral valves are mildly thicken. There is mild mitral valve regurgitation. Aortic Valve The aortic valve is trileaflet. Moderate stenosis, mean gradient 21mmHg, vmax 3.0m/s. There is mild aortic valve regurgitation. Tricuspid Valve The tricuspid valve is normal by two-dimensional, color flow and Doppler interrogation. There is tra ce tricuspid valve regurgitation. Pulmonic Valve There is no significant pulmonic valve regurgitation. Vessels The pulmonary artery appears normal. The inferior vena cava pulmonary and hepatic veins appear carl l. Pericardium The pericardium is normal by two-dimensional imaging. There is no significant pericardial effusion. CONCLUSIONS Indication: Cardiac clearance Normal LV size and function. Mild LVH. Stage I diastolic dysfunction. Estimated EF 60-65% Normal RV size and function. Moderate AV stenosis, mean gradient 21mmHg, vmax 3.1 m/s. Mild thicken MVL. Midl MR, AI. Trace TR. Jose Castellanos (Electronically Signed) Final Date: 24 June 2024 17:59
--- NOTE | 2024-06-23 14:31 | XR_ITS ---
Examination: Left hip AP single view TECHNIQUE: AP left hip single view Exam date and time: June 23, 2024 1436 hours INDICATIONS: Patient fell 3 days ago with injury to the hip, left hip pain FINDINGS: Left hip fracture, left femoral neck and particularly intertrochanteric L4 displacement of the left femoral shaft Left hemipelvis intact IMPRESSION: Left hip fracture as above
--- NOTE | 2024-06-23 14:47 | ESHP_ITS ---
<Statement entered by Carrington Oakes MD - 06/23/24 15:30> This patient is a 69-year-old female who was admitted for left hip fracture complicated after having a ground-level fall. Hip x-ray showed left hip displaced fracture. Pain control was started. We will get cardiac clearance and follow surgery recommendations. IV fluids were started. Will follow-up on echocardiogram. Orthopedics, Dr. Bautista also has been consulted for further evaluation. Home medications were reconciled for seizure disorder. All labs and orders were reviewed. I saw and examined the patient, and I agree with current management stated by Dr Breonna MD,PGY1. Plan of care was discussed with the attending physician and resident physician. Disclaimer: Despite multiple revisions, due to the dictation software being used, the document bellow may not be free of grammatical errors including phonetic/typographic errors. However, this does not deter from our commitment to providing health care in the patient's best interest in mind. Dr. Violette MD, PGY 2 Documentation for date of: 06/23/24 HPI History of Present Illness Chief complaint: Ground Level Fall History of present illness: HPI: Patient is a poor historian and majority of history obtained from chart review. Attempted to contact patient's son for additional information but was unsuccessful. Patient is a 68-year-old female with past history of NIDDM type II, essential hypertension, hyperlipidemia, CAD s/p CABG, history of stroke and seizure disorder. Patient presented today with a chief complaint of a ground-level fall. From chart review patient had a ground-level fall 3 days ago and was brought in by ambulance today. When I asked the patient why she is here she says she is not sure. However she endorses 10/10 right hip pain. Upon review patient denies any chest pain/pressure, palpitations, SOB, headache, leg swelling, N/V/diarrhea. Also denies any cough, fever, chills or sick contacts or recent travel. ED course: BP 134/89 pulse 77, RR 18, T 98F, SpO2 to 99% on room air. Labs significant for Hb 10.6, HCT 31.5, WBC 14.4, K5.2, BUN 53, CR 1.3 and CK4 51. Urinalysis significant for 1+ protein, 1+ bilirubin and leukocyte esterase positive. Chest x-ray showed no signs of pulmonary edema, consolidation or pleural effusion. Wires and sternal noted. Left hip x-ray significant for left femoral neck displaced fracture. Patient received fentanyl 25 mcg x 2, ondansetron 4 Mg IV x 1, normal saline IVF 500 cc x 1. Patient will be admitted for management and treatment of acute displaced left femoral neck fracture. Orthopedics, Dr. Bautista is consulted and closely following the case. Past Medical History Past Medical History NEUROLOGIC: Positive Neurological Disorders, Cerebrovascular Accident, Transient Ischemic Attacks (TIA) and Seizures CARDIAC: Positive Cardiac Disorders, Myocardial Infarction, Angina, Coronary Artery Disease, Atherosclerotic Heart Disease, Hypercholesterolemia, Congestive Heart Failure, Edema and Hypertension RESPIRATORY: Positive Asthma GASTROINTESTINAL: Positive Gastrointestinal Disorders, Gastroesophageal Reflux Disease and Obesity MUSCULOSKELETAL: Positive Musculoskeletal Disorders, Arthritis, Degenerative Joint Disease and Osteomyelitis ENDOCRINE: Positive Endocrine Disorders and Diabetes Mellitus Type 2 PSYCHO/SOCIAL: Positive Depression OTHER HISTORY: Positive Hospitalization, Falls, Blood Transfusions and Cancer Family History FAMILY HISTORY: Positive Family Respiratory Disorders, Family Cardiac Disorders, Family Cancer and Family Surgery Surgical History SURGICAL: Positive Cardiac Surgery, Coronary Artery Bypass Graft, Coronary Stent, Joint Replacement and Hysterectomy Social History SMOKING STATUS: Never smoker SECOND HAND EXPOSURE: No SUBSTANCE USE: does not use Past Medical History Comments PMH COMMENT: Medication list: ?Metoprolol succinate 50 Mg p.o. daily ? Metformin 1 g p.o. twice daily ? Plavix 75 Mg p.o. daily ? Isosorbide mononitrate 30 Mg p.o. daily ? Atorvastatin ? ASA 81 Mg p.o. daily ? Lisinopril 10 Mg p.o. daily Allergies: As per chart Social history: Lives with his son and requires assistance with ambulation and ADLs Exam Vital Signs Temp Pulse Resp BP Pulse Ox O2 Del Method 98.9 F 78 18 108/61 100 Room Air 06/23/24 12:06/23/24 12:06/23/24 12:06/23/24 12:06/23/24 12:06/23/24 12:01 Narrative Exam Constitutional Alert, oriented x 1[Person only] and comfortable. HEENT Vision grossly intact. Patent nares. Trachea midline Respiratory Chest normal on inspection and clear auscultation bilaterally Cardiovascular S1 and S2 audible, RRR. 3/6 ejection systolic murmur heard at right sternal border without radiation to carotids. JVD not assessed. Abdominal Soft and non tender to palpation in all quadrants. BS + Genitourinary No bladder tenderness, no flank pain. Normal to palpation Musculoskeletal Extremities tone within normal limits. No LE edema. Neurological CN II - XII grossly intact. Extremity motor and sensation grossly intact. Skin Left chopart amputation, weak posterior tibial pulse on right, patient lying on her right with hips and knees flexed Psychiatric Patient has good affect, is cooperative Results: Labs 06/23/24 02:45 06/23/24 02:45 Labs: Short CBC 06/23/24 Range/Units 02:45 WBC 14.4 H (3.6-11.0) Thou/mm3 Hgb 10.6 L (12.0-16.0) g/dL Hct 31.5 L (36.0-46.0) % Plt Count 196 (140-440) Thou/mm3 BMP 06/23/24 02:45 Sodium 139 Potassium 5.2 H Chloride 102 Carbon Dioxide 24.6 BUN 53 H Creatinine 1.3 Glucose 266 H Calcium 9.7 Cardiac Enzymes 06/23/24 Range/Units 09:00 Total Creatine Kinase 451 H (34-171) U/L Liver Function 06/23/24 Range/Units 02:45 Total Bilirubin 0.4 (0.3-1.2) mg/dL AST 39 H (0-34) U/L ALT 79 H (10-49) U/L Alkaline Phosphatase 117 H (46-116) U/L Albumin 4.1 (3.4-4.8) gm/dL Urine 06/23/24 Range/Units 08:27 Urine Color Yellow (Lt Yel-Yel) Urine Clarity Hazy (Clear/Hazy) Urine pH 5.5 (5.0-7.0) Ur Specific [place] 1.026 (1.001-1.035) Urine Protein 1+ A (Neg - Trace) Urine Glucose (UA) Negative (Negative) Quality Measures Quality Measures none Advance care planning discussed with:: other Medications Home Medications and Allergies Home Medications ?Medication ?Instructions ?Recorded ?Confirmed ?Type clopidogrel 75 mg tablet (Plavix) 75 mg PO QDAY 10/31/19 04/23/21 History isosorbide mononitrate 60 mg 60 mg PO QDAY 10/31/19 04/23/21 History tablet,extended release 24 hr ezetimibe 10 mg tablet 10 mg PO QDAY 02/18/20 04/23/21 History atorvastatin 20 mg tablet 20 mg PO HS 07/23/20 04/23/21 History aspirin 81 mg tablet,delayed 81 mg PO QAM 04/23/21 04/23/21 History release Allergies Allergy/AdvReac Type Severity Reaction Status Date / Time lettuce Allergy Severe SWELLING Verified 06/23/24 01:42 Penicillins Allergy Severe HIVES AND Verified 06/23/24 01:42 RESPIRATORY PROBLEMS shellfish derived Allergy Severe Rash Verified 06/23/24 01:42 adhesive Allergy Mild Blister Verified 06/23/24 01:42 iodine Allergy Mild RASH AND Verified 06/23/24 01:42 BLISTERS jaramillo pepper [green pepper] Allergy Unknown RASH, Verified 06/23/24 01:42 SWELLING, SORE TONGUE egg Allergy Unknown RASH Verified 06/23/24 01:42 Visit Medications Acetaminophen (Acetaminophen 325 Mg Tablet) 650 mg PO Q6H PRN PRN Reason: Fever >100.3 or pain 1-3 Stop: 07/23/24 09:47 Hydrocodone Bitart/Acetaminophen (Hydrocodone/Apap 5/325 Tablet) 1 tab PO Q4HR PRN PRN Reason: PAIN SCALE 4-10(Mod-Sev Stop: 06/28/24 09:47 Dextrose (Dextrose 50%-Water Inj 50 Ml Syringe) 25 ml IV Q15MIN PRN PRN Reason: BG 50-70 responsive npo pt Stop: 07/23/24 09:58 Dextrose (Dextrose 50%-Water Inj 50 Ml Syringe) 50 ml IV Q15MIN PRN PRN Reason: BG <50 OR BG <70 & pt unresponsive Stop: 07/23/24 09:58 Glucagon (Glucagon Inj 1 Mg Vial) 1 mg IM Q15MIN PRN PRN Reason: BG <70, and no IV access Sodium Chloride (Ns) 1,000 mls @ 70 mls/hr IV .[id number] ONE Stop: 06/23/24 22:42 Last Admin: 06/23/24 12:02 Dose: 70 mls/hr Insulin Human Lispro (Insulin Lispro (Admelog) 1 Unit/0.01 Ml Unit) 0 unit SC [facility]; Protocol Stop: 07/23/24 11:29 Last Admin: 06/23/24 12:02 Dose: Not Given Levetiracetam (Levetiracetam 250 Mg Tablet) 1,000 mg PO BID [facility] Stop: 07/23/24 20:59 Morphine Sulfate (Morphine Sulf Inj 10 Mg/Ml Vial) 2 mg IVP Q4HR PRN PRN Reason: BREAKTHROUGH PAIN Stop: 06/28/24 09:47 Last Admin: 06/23/24 12:29 Dose: 2 mg Discontinued Medications Fentanyl Citrate (Fentanyl Cit Inj 50 Mcg/Ml Amp 2ml) 25 mcg IVP X1 ONE Stop: 06/23/24 03:05 Last Admin: 06/23/24 03:11 Dose: 25 mcg Fentanyl Citrate (Fentanyl Cit Inj 50 Mcg/Ml Amp 2ml) 25 mcg IVP X1 ONE Stop: 06/23/24 05:49 Last Admin: 06/23/24 05:52 Dose: 25 mcg Heparin Sodium (Porcine) (Heparin Sod Inj 5000 Unit/Ml Vial) 5,000 unit SC BID [facility] Stop: 07/07/24 09:59 Last Admin: 06/23/24 11:20 Dose: 5,000 unit Sodium Chloride (Ns) 500 mls @ 999 mls/hr IV .Q31M ONE Stop: 06/23/24 03:30 Last Infusion: 06/23/24 04:25 Dose: Infused Sodium Chloride (Ns) 1,000 mls @ 125 mls/hr IV .Q8H ONE Stop: 06/23/24 16:24 Last Infusion: 06/23/24 12:03 Dose: Infused Morphine Sulfate (Morphine Sulf Inj 10 Mg/Ml Vial) 2 mg IVP X1 ONE Stop: 06/23/24 07:45 Last Admin: 06/23/24 08:08 Dose: 2 mg Ondansetron HCl (Ondansetron Inj 2 Mg/Ml Inj 2 Ml) 4 mg IV X1 ONE; Protocol Stop: 06/23/24 07:47 Last Admin: 06/23/24 08:12 Dose: 4 mg Assessment & Plan Plan Patient is a poor historian and majority of history obtained from chart review. Attempted to contact patient's son for additional information but was unsuccessful. Patient is a 68-year-old female with past history of NIDDM type II, essential hypertension, hyperlipidemia, CAD s/p CABG, history of stroke and seizure disorder. Patient presented today with a chief complaint of a ground-level fall. Patient will be admitted for management and treatment of acute displaced left femoral neck fracture. Orthopedics, Dr. Bautista is consulted and closely following the case. 1. Acute displaced left femoral neck fracture secondary to ground-level fall From chart review patient had a ground-level fall 3 days ago. On presentation she complained of 10/10 right hip pain. On imaging hip x-ray revealed left femoral neck displaced fracture. Plan: ? Cardiac diet ? Transthoracic echocardiogram ordered ? Orthopedics, Dr Bautista consulted and is closely following case. Appreciate recommendations. ? Cardiology, Dr Castellanos consulted for cardiac clearance. Appreciate recommendations. 2. Heart murmur for investigation Plan: ? Transthoracic echocardiogram ordered to assess for wall motion abnormalities, valvular defects and ejection fraction. 3. Acute kidney injury prerenal versus renal Likely secondary to dehydration as patient had ground-level fall and uncertain of how long she was down. Etiology likely prerenal From chart review baseline CR 0.4 On admission CK4 51 and CR elevated at 1.3. Plan: ? Maintenance IVF normal saline at 70 cc/hour 4. Essential hypertension On admission BP 134/89 Home medications metoprolol succinate 50 Mg p.o. daily, isosorbide mononitrate 60 Mg p.o. daily, lisinopril 10 Mg p.o. daily Plan: ? Resumed home medication isosorbide mononitrate 60 Mg p.o. daily ? Rest of home antihypertensives on hold for now in light of normotension. 5. CAD s/p CABG 6. Hyperlipidemia 7. Transaminitis Patient's home medication Plavix, aspirin and atorvastatin On admission AST 39, ALT 79 and ALP 117 Plan: ?Antiplatelets on hold for now in anticipation for surgery ? Started on hold for now in light of transaminitis 8. [id number] diabetes mellitus type 2 [6.8%] 9. Diabetic neuropathy S/p left chopart's amputation Patient's recent HbA1c 6.8% from May 2024 Home medication metformin 1 g p.o. twice daily Plan: ? Insulin sliding scale to cover for glucose spikes 10. History of strokes 11. Seizure disorder Patient's home medication Keppra 1 g p.o. twice daily Plan: ? Resumed home medication Keppra 1 g p.o. twice daily Health maintenance: Disposition: Pending cardiac clearance for surgery. Diet: Cardiac and low consistent carb Lines: pIVs GI Prophylaxis: None Thrombo Prophylaxis: SCDs Code status: FULL CODE Plan of care discussed with Attending Dr. Dallas and PGY2 Dr. Violette Ravi MD PGY 1 Attending Provider Attestation/Addendum Chucho, Kerri Dallas DO, attest that I was physically present for the montez portions of the service and evaluated the patient with the resident and I reviewed and discussed the case with the resident and agree with the resident's findings and plans of care as documented above Patient is a 69-year-old female with past medical history of type 2 diabetes, hypertension, hyperlipidemia, CAD status post CABG and seizures who is brought to the ED after sustaining a ground-level fall about 3 days ago. Patient reports pain in her left hip. Patient is noted to have amputation of her left metatarsal although she states was done years ago by Dr. Lott in [place]. She cannot recall who her retanner or cardiothoracic surgeon was for her CABG. Hip x-ray was done and shows a displaced left femoral neck fracture. Orthopedic surgery was called and will be seeing patient determine when surgery will be as patient had last taken Plavix yesterday morning. Will place cardiology consult for cardiac clearance in the meantime. Will continue with pain control as needed. Will admit patient to med/surge. Will hold off any antiplatelets and anticoagulants as per Ortho recs.
--- NOTE | 2024-06-23 14:49 | XR_ITS ---
Examination: CT pelvis without intravenous contrast. CT left hip without intravenous contrast 2-D sagittal and coronal reconstructions. Date and time of exam:June 23, 2024 1621 hours INDICATIONS: Patient fell 3 days ago with injury to the left hip left hip pain CTDI: vol (mGy) :7.06 DLP: (mGycm) : 247 Technique: Multiple 3 mm axial sections of the pelvis have been obtained with the 64 slice high resolution scanner. 2-D sagittal and coronal reconstructions. Low dose protocols were performed. One or more of the following dose reduction techniques were used; automated exposure control, adjustment of the mA and/or KV according to patient size, use of iterative reconstruction technique. Findings: Severe osteopenia Abundant stool in the colon Urinary bladder contracted around a Juan catheter, urinary bladder wall thickening Acute severely comminuted fracture low femoral neck and part of the intertrochanteric The femoral shaft is rotated and displaced cephalad relative to the left femoral head No hip dislocation Right hip bones of the pelvis intact IMPRESSION: Acute severely comminuted fracture low femoral neck and partly intertrochanteric The femoral shaft is rotated and displaced cephalad relative to the femoral neck
--- NOTE | 2024-06-23 15:05 | PC.NURSE ---
REPORT GIVEN TO SHAILESH salazar
--- NOTE | 2024-06-23 17:30 | ESCONSULT_ITS ---
HPI Data of Consult Requesting Physician: Kerri Dallas DO Admitting Provider: Kerri Dallas DO Attending Provider: Kerri Dallas DO Primary Care Provider: JENNIFER Jones Consult Narrative Reason for consult: Cardiac clearance History of present illness: 69-year-old female with past medical history of DM2, HTN, hyperlipidemia, CVA, CAD s/p CABG, dementia, and seizures (on Keppra) was admitted to the hospital on 06/23/2024 due to left hip fracture. In the ED patient came in with complaints of a ground-level fall while she was trying to transfer from her commode to the bed. Initially patient came in afebrile and mildly hypertensive. Initial labs showed WBC 14.4, Hgb 10.6, potassium 5.2, bicarb 24.6, BUN 53, creatinine 1.3, glucose 266, CK4 51, and UA was positive for leukocytes esterase and bacteria. Initial imaging included cervical spine and head CT which were both unremarkable, hip and pelvis x-ray which showed displaced left hip fracture, knee x-ray which was unremarkable, femur x-ray which showed displaced left hip fracture, chest x-ray which showed no pneumonia or pulmonary edema, and hip x-ray showed left hip fracture. During my assessment patient's son was at bedside and patient has just gotten back from CT. Patient is a poor historian likely due to her dementia and most of the history was taken from chart review as well as the son. Son stated that yesterday morning patient was in her commode around 10:30 AM and that he went outside to take out the trash when the patient tried to transfer herself from the commode to her bed and fell and landed on her left hip. Initially patient did not have a lot of pain and patient's son did not find it necessary to bring her to the hospital, but around 11 to 10 PM on that same day patient started having excruciating pain and she could not move her left lower extremity therefore the son brought her into the ED. Patient is signed states that she has been doing a lot better since her last hospital admission. Patient states that she does have some chest pain and feels like her heart is racing, but denies any shortness of breath. Patient does have an echo from 2019 which had the following findings: Normal left ventricular size and function. Approximate ejection fraction is 60%. Mild mitral and mild tricuspid regurgitation Moderate calcific aortic stenosis peak grdaient 43 mmhg, men grdient of 33 mmhg, veocity 3.2 m/sec Mitral valve thickening with mild mitral regurgitation. Patient had her CABG done at [place] around 2019. Would recommend to get records from [place] concerning patient's CABG. Of note patient was discharged on 05/08/2024 after being admitted due to new onset seizures. Cardiology was consulted for cardiac clearance for surgical repair of hip fracture. 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 HEENT: Denies hearing loss, Denies ear pain, Denies postnasal drip, Denies double vision, Denies blurry vision. Respiratory: Denies shortness of breath, denies cough, denies wheezing. Cardiovascular: Admits chest pain, Admits palpitations, Denies sudden loss of consciousness. GI: Denies blood in stool, Denies constipation, Denies abdominal pain, Denies difficulty swallowing, Admits nausea/vomit. : Denies urinary incontinence, Denies pain while urinating, Denies increased urinary frequency. MSK: Admits joint pain, Denies joint swelling, Denies numbness, denies lower extremity swelling. Skin: Denies rash, Denies itching, Denies easy bruising. Neuro: Denies headaches, Denies dizziness, Denies seizures. Exam Vital Signs Temp Pulse Resp BP Pulse Ox O2 Del Method 98.2 F 84 18 123/67 97 Room Air 06/23/24 16:06/23/24 16:00 06/23/24 16:06/23/24 16:06/23/24 16:06/23/24 16:00 Narrative Exam General: A/O x2 (not to time), alert and active, frail, thin Eyes: PERRL, EOMI. Anicteric, vision grossly intact. Ears: No ear pain, no ear discharge, Hearing grossly intact. Nose: No nasal discharge. Mouth/Throat: Moist mucous membranes, no redness, no lesions. Neck: Neck supple, non-tender, no cervical lymphadenopathy. Lungs: Clear MARIE to auscultation and percussion, No accessory muscle use. Cardio: Normal S1/S2, regular rhythm, systolic murmur, no JVD Abdomen: Soft, non-tender, no palpable masses, peristalsis present, no guarding or rebound. Extremities: Symmetrical, 1+ peripheral edema MARIE , non-tender, peripheral pulses presents. 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 Neuro: able to move all extremities more alert and active. Able to respond to questions and follow commands. Psych:Cooperative Results Labs 06/23/24 02:45 06/23/24 02:45 Labs: Short CBC 06/23/24 Range/Units 02:45 WBC 14.4 H (3.6-11.0) Thou/mm3 Hgb 10.6 L (12.0-16.0) g/dL Hct 31.5 L (36.0-46.0) % Plt Count 196 (140-440) Thou/mm3 BMP 06/23/24 02:45 Sodium 139 Potassium 5.2 H Chloride 102 Carbon Dioxide 24.6 BUN 53 H Creatinine 1.3 Glucose 266 H Calcium 9.7 Cardiac Enzymes 06/23/24 Range/Units 09:00 Total Creatine Kinase 451 H (34-171) U/L Liver Function 06/23/24 Range/Units 02:45 Total Bilirubin 0.4 (0.3-1.2) mg/dL AST 39 H (0-34) U/L ALT 79 H (10-49) U/L Alkaline Phosphatase 117 H (46-116) U/L Albumin 4.1 (3.4-4.8) gm/dL Urine 06/23/24 Range/Units 08:27 Urine Color Yellow (Lt Yel-Yel) Urine Clarity Hazy (Clear/Hazy) Urine pH 5.5 (5.0-7.0) Ur Specific [place] 1.026 (1.001-1.035) Urine Protein 1+ A (Neg - Trace) Urine Glucose (UA) Negative (Negative) Quality Measures Quality Measures none Advance care planning discussed with:: patient and child Medications Home Medications and Allergies Home Medications ?Medication ?Instructions ?Recorded ?Confirmed ?Type clopidogrel 75 mg tablet (Plavix) 75 mg PO QDAY 10/31/19 04/23/21 History isosorbide mononitrate 60 mg 60 mg PO QDAY 10/31/19 04/23/21 History tablet,extended release 24 hr ezetimibe 10 mg tablet 10 mg PO QDAY 02/18/20 04/23/21 History atorvastatin 20 mg tablet 20 mg PO HS 07/23/20 04/23/21 History aspirin 81 mg tablet,delayed 81 mg PO QAM 04/23/21 04/23/21 History release Allergies Allergy/AdvReac Type Severity Reaction Status Date / Time lettuce Allergy Severe SWELLING Verified 06/23/24 01:42 Penicillins Allergy Severe HIVES AND Verified 06/23/24 01:42 RESPIRATORY PROBLEMS shellfish derived Allergy Severe Rash Verified 06/23/24 01:42 adhesive Allergy Mild Blister Verified 06/23/24 01:42 iodine Allergy Mild RASH AND Verified 06/23/24 01:42 BLISTERS jaramillo pepper [green pepper] Allergy Unknown RASH, Verified 06/23/24 01:42 SWELLING, SORE TONGUE egg Allergy Unknown RASH Verified 06/23/24 01:42 Visit Medications Acetaminophen (Acetaminophen 325 Mg Tablet) 650 mg PO Q6H PRN PRN Reason: Fever >100.3 or pain 1-3 Stop: 07/23/24 09:47 Hydrocodone Bitart/Acetaminophen (Hydrocodone/Apap 5/325 Tablet) 1 tab PO Q4HR PRN PRN Reason: PAIN SCALE 4-10(Mod-Sev Stop: 06/28/24 09:47 Dextrose (Dextrose 50%-Water Inj 50 Ml Syringe) 25 ml IV Q15MIN PRN PRN Reason: BG 50-70 responsive npo pt Stop: 07/23/24 09:58 Dextrose (Dextrose 50%-Water Inj 50 Ml Syringe) 50 ml IV Q15MIN PRN PRN Reason: BG <50 OR BG <70 & pt unresponsive Stop: 07/23/24 09:58 Glucagon (Glucagon Inj 1 Mg Vial) 1 mg IM Q15MIN PRN PRN Reason: BG <70, and no IV access Sodium Chloride (Ns) 1,000 mls @ 70 mls/hr IV .[id number] ONE Stop: 06/23/24 22:42 Last Admin: 06/23/24 12:02 Dose: 70 mls/hr Insulin Human Lispro (Insulin Lispro (Admelog) 1 Unit/0.01 Ml Unit) 0 unit SC ACHS [facility]; Protocol Stop: 07/23/24 11:29 Last Admin: 06/23/24 12:02 Dose: Not Given Isosorbide Mononitrate (Isosorbide Er Mononitrate 30 Mg Tabcr) 60 mg PO QDAY [facility] Stop: 07/24/24 08:59 Levetiracetam (Levetiracetam 250 Mg Tablet) 1,000 mg PO BID [facility] Stop: 07/23/24 20:59 Morphine Sulfate (Morphine Sulf Inj 10 Mg/Ml Vial) 2 mg IVP Q4HR PRN PRN Reason: BREAKTHROUGH PAIN Stop: 06/28/24 09:47 Last Admin: 06/23/24 16:48 Dose: 2 mg Discontinued Medications Fentanyl Citrate (Fentanyl Cit Inj 50 Mcg/Ml Amp 2ml) 25 mcg IVP X1 ONE Stop: 06/23/24 03:05 Last Admin: 06/23/24 03:11 Dose: 25 mcg Fentanyl Citrate (Fentanyl Cit Inj 50 Mcg/Ml Amp 2ml) 25 mcg IVP X1 ONE Stop: 06/23/24 05:49 Last Admin: 06/23/24 05:52 Dose: 25 mcg Heparin Sodium (Porcine) (Heparin Sod Inj 5000 Unit/Ml Vial) 5,000 unit SC BID [facility] Stop: 07/07/24 09:59 Last Admin: 06/23/24 11:20 Dose: 5,000 unit Sodium Chloride (Ns) 500 mls @ 999 mls/hr IV .Q31M ONE Stop: 06/23/24 03:30 Last Infusion: 06/23/24 04:25 Dose: Infused Sodium Chloride (Ns) 1,000 mls @ 125 mls/hr IV .Q8H ONE Stop: 06/23/24 16:24 Last Infusion: 06/23/24 12:03 Dose: Infused Morphine Sulfate (Morphine Sulf Inj 10 Mg/Ml Vial) 2 mg IVP X1 ONE Stop: 06/23/24 07:45 Last Admin: 06/23/24 08:08 Dose: 2 mg Ondansetron HCl (Ondansetron Inj 2 Mg/Ml Inj 2 Ml) 4 mg IV X1 ONE; Protocol Stop: 06/23/24 07:47 Last Admin: 06/23/24 08:12 Dose: 4 mg Assessment & Plan Plan 69-year-old female with past medical history of DM2, HTN, hyperlipidemia, CVA, CAD s/p CABG, dementia, and seizures (on Keppra) was admitted to the hospital on 06/23/2024 due to left hip fracture. 69-year-old female with a past medical history of CAD status post CABG with unknown grafts, history of recent CVA and, history of seizure disorder on Keppra, essential hypertension, type 2 diabetes mellitus, hyperlipidemia, history of status epilepticus, left transseptal temp patient, diabetic peripheral neuropathy, and depression, slurred speech presented to the emergency department after a fall. Cardiology consulted for further preoperative cardiac restratification. Patient history of 1. Acute displaced left femoral neck fracture 2. Ground-level fall ?Patient came in after a ground-level fall when she was trying to transfer from her commode to her bed. ? Imaging showed acute displaced left femoral neck fracture ? Revised cardiac risk index score of 2 points indicating risk of major cardiac 10.1% ?Chaudhry perioperative risk indicating 1.9% SHAWNA risk Plan: ?Will follow-up on echo ordered -Will follow-up on EKG ordered 3. CAD s/p CABG 4. CVA 5. Essential hypertension ?Patient was on aspirin, Plavix, and atorvastatin at home ? Patient had CABG done in [place] in 2019 Plan: ? Recommend to get records from [place] concerning patient's CABG ? Continue patient's aspirin Plavix and atorvastatin if no immediate surgical interventions to be done 6. DM2 7. Hyperlipidemia ?Continue current management per primary care team 8. Dementia 9. Seizures ?Continue current management as per primary care team Continue rest of management as per primary team. We are grateful to be able to participate in Mrs. Holden's care. Thank you for the consult Plan of care discussed with attending Conference And Event Organiser, Dr. Emanuel Baltazar MD PGY-1 Attending Provider Attestation/Addendum I have personally seen and examined the patient separately on the above date of service and discussed the plan of care with the resident. I reviewed the resident Dr. Gunn consultation progress note and agree with the resident findings and plan in the note above and have also edited the documentation to reflect my findings and plan. In [facility] with a past medical history of CAD s/p CABG and history of previous multiple PCI, recent CVA of stroke, seizure disorder with Keppra and is 50 to 70 degrees, as a result, retention, hyperlipidemia, baseline dementia, slurred speech, history of left leg transmetatarsal amputation presented to emergency department for further evaluation after a fall. Cardiology was consulted for preoperative cardiac restratification.. As per the patient she apparently slipped on one of her legs has given away which led to the fall. Patient did not lose any consciousness but injured herself. Patient denies chest pain chest pressure palpitations or orthopnea or PND or dizziness or syncope or palpitations just prior to the fall. X-ray done in the emergency department did show left femoral neck displaced fracture. Rest of the labs vitals reviewed and within normal range except the BUN is 53 and creatinine is 1.3 on admission along with elevated WBC count and mild anemia with hemoglobin of 10.6 potassium was mildly elevated at 5.2. UA was positive. Chest x-ray reviewed show any acute pathology. Recommendations: Preoperative cardiac risk stratification-patient is going for intermittent risk surgery for acute left femoral neck fracture, patient will need general anesthesia. At baseline patient functional status is less than 4 METS. Denied any kind of cardiac complaints as noted above. RCRI risk score is elevated 2. EKG showed normal sinus rhythm with Q waves in the septal leads indicating old ND but no other acute ischemic changes. Echocardiogram ordered for further evaluation of the left ventricular ejection fraction along with diastolic function and rule out regional wall motion abnormalities. Once all the workup is completed then RCRI score's will be calculated. Will follow-up in a.m. with the echocardiogram. Patient had a history of CAD with multiple stents from . Since then patient had a possible CABG in between but unclear history and recommend to obtain records for the same. Patient denies any kind of cardiac in place and EKG without any acute ST-T changes suggestive of ischemia except for the old Q waves. Recommend to continue aspirin and statin as well as beta-samson if blood pressure is permissible high intensity statin Lipitor or Crestor recommended. Recommend strict control of the blood pressure as well as diabetes for now. Check TSH A1c and lipid profile for the cardiac risk stratification. Jose Castellanos M.D. Interventional Cardiology
[2024-06-23 18:39] LABS: Magnesium 1.9 mg/dL (1.6-2.6)
--- NOTE | 2024-06-23 18:57 | EKG_ITS ---
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
[2024-06-23] MEDS: INSULIN LISPRO (AdmeLOG) 1 UNIT/0.01 ML UNIT SC (20:39)
[2024-06-23] MEDS: levETIRAcetam 250 MG TABLET 1000 MG PO (20:40)
[2024-06-24] VITALS (16 sets, daily range): BP systolic 84–119; BP diastolic 46–79; PULSE 74–103; RESP 16–98; TEMP 36.4–37.7; O2SAT 96–100
[2024-06-24 05:49] LABS: Basophils % (Auto) 0 % (0-2.5); Eosinophils % (Auto) 0 % (0-10); Immature Granulocytes % (Auto) 0 % (0-0); Lymphocytes # (Auto) 1.1 Thou/mm3 (1.0-4.8); Lymphocytes % (Auto) 16 % (10-50); Mean Corpuscular Volume 84 fL (80-100); Monocytes # (Auto) 0.5 Thou/mm3 (0.0-0.8); Monocytes % (Auto) 7 % (0-12); Neutrophils % (Auto) 76 % (37-80); Nucleated Red Blood Cell % 0 /100 WBC (0)
[2024-06-24 05:51] LABS: Hematocrit 22.6 % (36.0-46.0); Immature Granulocytes Auto 0.01 Thou/mm3 (0.00-0.00); Mean Corpuscular HGB Conc 33.6 g/dl (31.0-37.0); Mean Corpuscular Hemoglobin 28.4 pg (25.0-35.0); Neutrophils # (Auto) 5.4 Thou/mm3 (1.8-7.7); Platelet Count 147 Thou/mm3 (140-440); RDW Standard Deviation 51.2 fL (36.4-46.3); Red Blood Count 2.68 Miln/mm3 (4.00-5.20); White Blood Count 7.1 Thou/mm3 (3.6-11.0)
[2024-06-24 05:53] LABS: Hemoglobin 7.6 g/dL (12.0-16.0)
[2024-06-24] MEDS: MORPHINE SULF INJ 10 MG/ML VIAL 2 MG IVP (06:05)
[2024-06-24 06:25] LABS: Alanine Aminotransferase 50 U/L (10-49); Albumin, Serum 3.5 gm/dL (3.4-4.8); Albumin/Globulin Ratio 1.7 (1.2-2.2); Alkaline Phosphatase 91 U/L (46-116); Anion Gap 7 (7-16); Aspartate Amino Transferase 30 U/L (0-34); BUN/Creatinine Ratio 57 Ratio (12-20); Bilirubin,Total 0.6 mg/dL (0.3-1.2); Blood Urea Nitrogen 51 mg/dL (9-23); Calcium 8.8 mg/dL (8.3-10.6); Calcium (Corrected) 9.2 mg/dL (8.5-10.1); Carbon Dioxide 26.5 mMol/L (20.0-31.0); Chloride 103 mMol/L (98-107); Creatinine (Component) 0.9 mg/dL (0.6-1.3); Estimated Creatinine Clearance 53.4 mL/min (>60); Globulin 2.1 gm/dL (2.3-3.5); Glucose 150 mg/dL (74-106); Magnesium 1.9 mg/dL (1.6-2.6); Osmolality,Calculated 288 (275-295); Phosphorous 3.8 mg/dL (2.4-5.1); Potassium 5.3 mMol/L (3.4-5.1); Sodium 136 mMol/L (136-145); Total Protein 5.6 gm/dL (5.7-8.2); eGFR > 60 See Note
--- NOTE | 2024-06-24 08:12 | PC.PT ---
Patient has L hip fracture. Will wait to perform PT eval until after patient has ortho consult/hip surgery.
[2024-06-24] MEDS: INSULIN LISPRO (AdmeLOG) 1 UNIT/0.01 ML UNIT SC ×4 (08:28→22:39)
--- NOTE | 2024-06-24 09:33 | ESPR_ITS ---
<Statement entered by Reina Stanton MD - 06/24/24 18:32> I discussed with and supervised my co-resident involved in the care of this patient. I agree with the assessment and plan as documented above. Patient seen and examined at bedside. She continues to be pleasantly confused. Pending echo for cardiac clearance. Anticipate surgery sometime this weekend. Will give 2 units of PRBCs her hemoglobin did drop. Will follow-up with the [facility]. Reina Stanton MD PGY-3 Documentation for date of: 06/24/24 Subjective Subjective Interval history: Patient was seen and examined at bedside this AM. No acute exents overnight. Patient tolerating diet, adequate urine output and mentation is at baseline. Patient endorses 10/10 constant left hip pain without radiation She also complains of central, constant chest pain for the past few hours. Unable to quantify or describe the pain. Hb 7.6 and HCT 22.6, down trended from 10.6 and 31.6 2 units PRBC ordered for transfusion Transthoracic echocardiogram ordered and still pending for cardiac clearance. Dr. Bautista, orthopedic surgeon recommended to optimize patient's hemoglobin >9 prior to surgery as per head of the femur is highly vascular and at high risk of hemorrhage during surgery. Dr. Castellanos,Cardiology was consulted for cardiac clearance and is closely following the case. Appreciate recommendations. Exam Vital Signs Temp Pulse Resp BP Pulse Ox O2 Del Method 99.7 F 87 18 115/56 L 98 Room Air 06/24/24 08:00 06/24/24 08:00 06/24/24 08:00 06/24/24 08:00 06/24/24 08:00 06/24/24 08:00 Narrative Exam Constitutional Alert, oriented x 2[Person and place] and in mild distress. Elderly female HEENT Vision grossly intact. Patent nares. Trachea midline Respiratory Chest normal on inspection and clear auscultation bilaterally Cardiovascular S1 and S2 audible, RRR. 3/6 ejection systolic murmur heard at right sternal border without radiation to carotids. JVD not assessed. Abdominal Soft and non tender to palpation in all quadrants. BS + Genitourinary No bladder tenderness, no flank pain. Normal to palpation Musculoskeletal Extremities tone within normal limits. No LE edema. Neurological CN II - XII grossly intact. Extremity motor and sensation grossly intact. Skin Left chopart amputation, weak posterior tibial pulse on right, patient lying on her right with hips and knees flexed Psychiatric Patient has good affect, is cooperative Objective Labs 06/25/24 03:10 06/25/24 03:10 Labs: Laboratory Results - last 24 hr 06/23/24 06/24/24 17:41 04:24 WBC 7.1 D RBC 2.68 L Hgb 7.6 L D Hct 22.6 L MCV 84 MCH 28.4 MCHC 33.6 RDW Std Deviation 51.2 H Plt Count 147 D Neut % (Auto) 76 Lymph % (Auto) 16 [place] % (Auto) 7 Eos % (Auto) 0 Baso % (Auto) 0 Neut # (Auto) 5.4 Lymph # (Auto) 1.1 [place] # (Auto) 0.5 Eos # (Auto) 0.0 Baso # (Auto) 0.0 Immature Gran # (Auto) 0.01 H Absolute Nucleated RBC 0.00 Immature Gran % 0 Nucleated RBC % 0 Sodium 136 Potassium 5.3 H Chloride 103 Carbon Dioxide 26.5 Anion Gap 7 BUN 51 H Creatinine 0.9 Estim Creat Clear Calc 53.4 L eGFR > 60 BUN/Creatinine Ratio 57 H Glucose 150 H D Calculated Osmolality 288 Calcium 8.8 Corrected Calcium 9.2 Phosphorus 3.8 Magnesium 1.9 1.9 Total Bilirubin 0.6 AST 30 ALT 50 H Alkaline Phosphatase 91 D Total Protein 5.6 L Albumin 3.5 D Globulin 2.1 L Albumin/Globulin Ratio 1.7 Quality Measures Quality Measures none Advance care planning discussed with:: patient and other Assessment & Plan Assessment Current Active Medications: Generic Name Dose Route Start Last Admin Trade Name Mino PRN Reason Stop Dose Admin Acetaminophen 650 mg 06/23/24 09:48 Acetaminophen 325 Mg Tablet PO 07/23/24 09:47 Q6H PRN Fever >100.3 or pain 1-3 Hydrocodone Bitart/Acetaminophen 1 tab 06/23/24 09:48 Hydrocodone/Apap 5/325 Tablet PO 06/28/24 09:47 Q4HR PRN PAIN SCALE 4-10(Mod-Sev Dextrose 25 ml 06/23/24 09:59 Dextrose 50%-Water Inj 50 Ml Syringe IV 07/23/24 09:58 Q15MIN PRN BG 50-70 responsive npo pt Dextrose 50 ml 06/23/24 09:59 Dextrose 50%-Water Inj 50 Ml Syringe IV 07/23/24 09:58 Q15MIN PRN BG <50 OR BG <70 & pt unresponsive Glucagon 1 mg 06/23/24 09:59 Glucagon Inj 1 Mg Vial IM Q15MIN PRN BG <70, and no IV access Magnesium Sulfate 2 gm in 50 mls @ 25 mls/hr 06/24/24 08:07 Magnesium Sulfate Ivpb IV 06/24/24 10:06 X1 ONE Insulin Human Lispro 0 unit 06/23/24 11:30 06/24/24 08:28 Insulin Lispro (Admelog) 1 Unit/0.01 Ml Unit SC 07/23/24 11:29 1 unit ACHS [facility]PER Administration Protocol Isosorbide Mononitrate 60 mg 06/24/24 09:00 Isosorbide Er Mononitrate 30 Mg Tabcr PO 07/24/24 08:59 QDAY [facility] Levetiracetam 1,000 mg 06/23/24 21:00 06/23/24 20:40 Levetiracetam 250 Mg Tablet PO 07/23/24 20:59 1,000 mg BID [facility] Administration Morphine Sulfate 2 mg 06/23/24 09:48 06/24/24 06:05 Morphine Sulf Inj 10 Mg/Ml Vial IVP 06/28/24 09:47 2 mg Q4HR PRN Administration BREAKTHROUGH PAIN Plan Patient is a poor historian and majority of history obtained from chart review. Attempted to contact patient's son for additional information but was unsuccessful. Patient is a 68-year-old female with past history of NIDDM type II, essential hypertension, hyperlipidemia, CAD s/p CABG, history of stroke and seizure disorder. Patient presented today with a chief complaint of a ground-level fall. Patient will be admitted for management and treatment of acute displaced left femoral neck fracture. Orthopedics, Dr. Bautista is consulted and closely following the case. 1. Unstable angina likely Patient endorses constant, central chest pain for the past couple of hours. Unable to quantify. Etiology most likely unstable angina. Patient has history of 3-4 stents at [facility] as well as CABG Plan: ? EKG ordered to rule out STEMI 2. Acute blood loss anemia 3. Chronic normocytic anemia From chart review baseline Hb between 11?12. Today patient Hb 7.6, HCT 22.6 Dr. Bautista, orthopedic surgeon recommended to optimize patient's hemoglobin >9 prior to surgery as per head of the femur is highly vascular and at high risk of hemorrhage during surgery. Plan: ? Type and screen ? 2 units PRBC ordered for transfusion - Post transfusion H&H 4. Acute displaced left femoral neck fracture secondary to ground-level fall From chart review patient had a ground-level fall 3 days ago. On presentation she complained of 10/10 right hip pain. On imaging hip x-ray revealed left femoral neck displaced fracture. Plan: ? Cardiac diet ? Pending Transthoracic echocardiogram - Possible Surgery on 06/26/2024 ? Orthopedics, Dr Bautista consulted and is closely following case. Appreciate recommendations. ? Cardiology, Dr Castellanos consulted for cardiac clearance. Appreciate recommendations. 5. Heart murmur for investigation Plan: ? Transthoracic echocardiogram ordered to assess for wall motion abnormalities, valvular defects and ejection fraction. 6. Acute kidney injury prerenal versus renal - resolving Likely secondary to dehydration as patient had ground-level fall and uncertain of how long she was down. Etiology likely prerenal From chart review baseline CR 0.4 On admission CK 451 and CR elevated at 1.3. -----> Cr 0.9 Plan: ? Discontinued IVF - Encourage oral fluid intake 7. Essential hypertension On admission BP 134/89 Home medications metoprolol succinate 50 Mg p.o. daily, isosorbide mononitrate 60 Mg p.o. daily, lisinopril 10 Mg p.o. daily Plan: ? Continue home medication isosorbide mononitrate 60 Mg p.o. daily ? Rest of home antihypertensives on hold for now in light of normotension. 8. CAD s/p CABG 9. Hyperlipidemia 10. Transaminitis -resolved Patient's home medication Plavix, aspirin and atorvastatin On admission AST 39, ALT 79 and ALP 117 down trended to AST 30, ALT 50, ALP 91 Plan: ? Antiplatelets on hold for now in anticipation for surgery ? Statin on hold for now in light of transaminitis 11. Icg-jgzqbcw-snxobemcn diabetes mellitus type 2 [6.8%] 12. Diabetic neuropathy S/p left chopart's amputation Patient's recent HbA1c 6.8% from May 2024 Home medication metformin 1 g p.o. twice daily Plan: ? Insulin sliding scale to cover for glucose spikes 13. History of strokes 14. Seizure disorder Patient's home medication Keppra 1 g p.o. twice daily Plan: ? Continue home medication Keppra 1 g p.o. twice daily 15. Hyperkalemia K5.3 Plan: ? Kayexalate 15 g p.o. x 1 ? Monitor on a.m. CMP Health maintenance: Disposition: Pending left hip surgery, tentatively on 06/26/2024. Awaiting cardiac clearance. Diet: Cardiac Lines: pIVs GI Prophylaxis: Pantoprazole IV Thrombo Prophylaxis: None Code status: FULL CODE Plan of care discussed with Attending Dr. Dallas and PGY3 Dr. Romy Ravi MD PGY 1 Attending Provider Attestation/Addendum I, Kerri Dallas, , attest that I was physically present for the montez portions of the service and evaluated the patient with the resident and I reviewed and discussed the case with the resident and agree with the resident's findings and plans of care as documented above Pt seen and evaluated this AM. She is in mild distress due to pain in her left hip. She is noted to have a drop in Hgb from 10.6 to 7.0. Will transfuse 2 units of pRBCs. Patient is scheduled for surgery on Thursday tentatively. Case discsused with orthopedic surgeon. Will continue with pain control PRN. Echo pending and f/u with cardiology recs for clearance.
[2024-06-24] MEDS: ISOSORBIDE ER MONONITRATE 30 MG TABCR 60 MG PO (10:28)
[2024-06-24] MEDS: Magnesium Sulfate 2 GM Ivpb 2 GM/50 ML BAG IV (10:29)
[2024-06-24] MEDS: SOD POLYSTYRENE SULFON SUSP 15 GM/60 ML BTL PO (10:29)
[2024-06-24] MEDS: levETIRAcetam 250 MG TABLET 1000 MG PO ×2 (10:29→22:10)
--- NOTE | 2024-06-24 10:30 | PD.RESPRO ---
Documentation for date of: 06/24/24 Subjective Subjective Interval history: Patient was seen at bedside this morning. No overnight events. Patient has still not gotten her surgery. Patient's potassium 5.3 and magnesium 1.9, recommend to keep above 4 and 2 respectively to avoid any further arrhythmias. EKG shows normal sinus rhythm with Q waves in anteroseptal leads indicating old VT. Patient does have a history of CAD and CABG. Echocardiogram was completed on 06/24/2024 Normal LV size and function. Mild LVH. Stage I diastolic dysfunction. Estimated EF 60-65% Normal RV size and function. Moderate AV stenosis, mean gradient 21mmHg, vmax 3.1 m/s. Mild thicken MVL. Midl MR, AI. Trace TR. Echo revealed moderate aortic valve stenosis with a mean gradient of 21 mmHg with a V-max of 3.1 m/s. Patient does not complain of any major cardiac complaints at the present point of time she did have some chest discomfort but EKG did not show any acute ST-T changes. EF is normal at 60 to 65% with normal RV and normal LV function. Patient is at moderate clear elevated risk for proposed surgery given her left femoral neck fracture and recommend to proceed with the surgery with no additional cardiac workup at the present point of time. Keep potassium greater than 4 and magnesium greater than 2.0 at all times. Hemoglobin is slightly low today at 7.6 and was 10.1 on admission and is decreasing. Primary team to to do further workup. Exam Vital Signs Temp Pulse Resp BP Pulse Ox O2 Del Method 99.7 F 87 18 115/56 L 98 Room Air 06/24/24 08:00 06/24/24 08:00 06/24/24 08:00 06/24/24 08:00 06/24/24 08:00 06/24/24 08:00 Narrative Exam General: A/O x2 (not to time), alert and active, frail, thin Eyes: PERRL, EOMI. Anicteric, vision grossly intact. Ears: No ear pain, no ear discharge, Hearing grossly intact. Nose: No nasal discharge. Mouth/Throat: Moist mucous membranes, no redness, no lesions. Neck: Neck supple, non-tender, no cervical lymphadenopathy. Lungs: Clear MARIE to auscultation and percussion, No accessory muscle use. Cardio: Normal S1/S2, regular rhythm, systolic murmur, no JVD Abdomen: Soft, non-tender, no palpable masses, peristalsis present, no guarding or rebound. Extremities: Symmetrical, 1+ peripheral edema MARIE , non-tender, peripheral pulses presents. 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 Neuro: able to move all extremities more alert and active. Able to respond to questions and follow commands. Psych:Cooperative Objective Labs 06/24/24 10:40 06/24/24 04:24 Labs: Laboratory Results - last 24 hr 06/23/24 06/24/24 17:41 04:24 WBC 7.1 D RBC 2.68 L Hgb 7.6 L D Hct 22.6 L MCV 84 MCH 28.4 MCHC 33.6 RDW Std Deviation 51.2 H Plt Count 147 D Neut % (Auto) 76 Lymph % (Auto) 16 [place] % (Auto) 7 Eos % (Auto) 0 Baso % (Auto) 0 Neut # (Auto) 5.4 Lymph # (Auto) 1.1 [place] # (Auto) 0.5 Eos # (Auto) 0.0 Baso # (Auto) 0.0 Immature Gran # (Auto) 0.01 H Absolute Nucleated RBC 0.00 Immature Gran % 0 Nucleated RBC % 0 Sodium 136 Potassium 5.3 H Chloride 103 Carbon Dioxide 26.5 Anion Gap 7 BUN 51 H Creatinine 0.9 Estim Creat Clear Calc 53.4 L eGFR > 60 BUN/Creatinine Ratio 57 H Glucose 150 H D Calculated Osmolality 288 Calcium 8.8 Corrected Calcium 9.2 Phosphorus 3.8 Magnesium 1.9 1.9 Total Bilirubin 0.6 AST 30 ALT 50 H Alkaline Phosphatase 91 D Total Protein 5.6 L Albumin 3.5 D Globulin 2.1 L Albumin/Globulin Ratio 1.7 Quality Measures Quality Measures none Advance care planning discussed with:: patient Assessment & Plan Assessment Current Active Medications: Generic Name Dose Route Start Last Admin Trade Name Freq PRN Reason Stop Dose Admin Acetaminophen 650 mg 06/23/24 09:48 Acetaminophen 325 Mg Tablet PO 07/23/24 09:47 Q6H PRN Fever >100.3 or pain 1-3 Hydrocodone Bitart/Acetaminophen 2 tab 06/24/24 09:34 Hydrocodone/Apap 5/325 Tablet PO 06/28/24 09:47 Q4HR PRN PAIN SCALE 4-10(Mod-Sev Dextrose 25 ml 06/23/24 09:59 Dextrose 50%-Water Inj 50 Ml Syringe IV 07/23/24 09:58 Q15MIN PRN BG 50-70 responsive npo pt Dextrose 50 ml 06/23/24 09:59 Dextrose 50%-Water Inj 50 Ml Syringe IV 07/23/24 09:58 Q15MIN PRN BG <50 OR BG <70 & pt unresponsive Diclofenac Sodium 4 gm 06/24/24 12:00 Diclofenac 1% Top Gel 100 Gm Tube TOP 07/24/24 11:59 QID HARPER Glucagon 1 mg 06/23/24 09:59 Glucagon Inj 1 Mg Vial IM Q15MIN PRN BG <70, and no IV access Insulin Human Lispro 0 unit 06/23/24 11:30 06/24/24 08:28 Insulin Lispro (Admelog) 1 Unit/0.01 Ml Unit SC 07/23/24 11:29 1 unit ACHS HARPER Administration Protocol Isosorbide Mononitrate 60 mg 06/24/24 09:00 Isosorbide Er Mononitrate 30 Mg Tabcr PO 07/24/24 08:59 QDAY HARPER Levetiracetam 1,000 mg 06/23/24 21:00 06/23/24 20:40 Levetiracetam 250 Mg Tablet PO 07/23/24 20:59 1,000 mg BID HARPER Administration Morphine Sulfate 2 mg 06/23/24 09:48 06/24/24 06:05 Morphine Sulf Inj 10 Mg/Ml Vial IVP 06/28/24 09:47 2 mg Q4HR PRN Administration BREAKTHROUGH PAIN Plan 69-year-old female with a past medical history of CAD status post CABG with unknown grafts, history of recent CVA and, history of seizure disorder on Keppra, essential hypertension, type 2 diabetes mellitus, hyperlipidemia, history of status epilepticus, left transseptal temp patient, diabetic peripheral neuropathy, and depression, slurred speech presented to the emergency department after a fall. Cardiology consulted for further preoperative cardiac restratification. 1. Acute displaced left femoral neck fracture 2. Ground-level fall ?Patient came in after a ground-level fall when she was trying to transfer from her commode to her bed. ? Imaging showed acute displaced left femoral neck fracture ? Revised cardiac risk index score of 2 points indicating risk of major cardiac 10.1% ?Chaudhry perioperative risk indicating 1.9% SHAWNA risk Plan: Patient is going for intermediate surgery for the left femoral neck fracture. Patient will need general anesthesia which also makes it as an intermittent risk procedure. Patient baseline functional status is less than 4 METS. ? Revised cardiac risk index score of 2 points indicating risk of major cardiac 10.1% ?Chaudhry perioperative risk indicating 1.9% SHAWNA risk EKG shows normal sinus rhythm with Q waves in anteroseptal leads indicating old VT. Patient does have a history of CAD and CABG. Echocardiogram was completed on 06/24/2024 Normal LV size and function. Mild LVH. Stage I diastolic dysfunction. Estimated EF 60-65% Normal RV size and function. Moderate AV stenosis, mean gradient 21mmHg, vmax 3.1 m/s. Mild thicken MVL. Midl MR, AI. Trace TR. Echo revealed moderate aortic valve stenosis with a mean gradient of 21 mmHg with a V-max of 3.1 m/s. Patient does not complain of any major cardiac complaints at the present point of time she did have some chest discomfort but EKG did not show any acute ST-T changes. EF is normal at 60 to 65% with normal RV and normal LV function. Patient is at moderately elevated risk for proposed surgery given her left femoral neck fracture and recommend to proceed with the surgery with no additional cardiac workup at the present point of time. Keep potassium greater than 4 and magnesium greater than 2.0 at all times. Hemoglobin is slightly low today at 7.6 and was 10.1 on admission and is decreasing. Primary team to to do further workup. 3. CAD s/p CABG 4. CVA 5. Essential hypertension ?Patient was on aspirin, Plavix, and atorvastatin at home ? Patient had CABG done in [place] in 2019 Plan: ? Recommend to get records from [place] concerning patient's CABG ? Continue patient's aspirin Plavix and atorvastatin if no immediate surgical interventions to be done 6. DM2 7. Hyperlipidemia ?Continue current management per primary care team 8. Dementia 9. Seizures ?Continue current management as per primary care team Continue rest of management as per primary team. We are grateful to be able to participate in Mrs. Holden's care. Thank you for the consult Plan of care discussed with attending Communications Planner, Dr. Emanuel Baltazar MD PGY-1 Attending Provider Attestation/Addendum I have personally seen and examined the patient separately on the above date of service and discussed the plan of care with the resident. I reviewed the resident Dr. Gunn consultation progress note and agree with the resident findings and plan in the note above and have also edited the documentation to reflect my findings and plan. Jose Castellanos M.D. Interventional Cardiology
[2024-06-24 11:09] LABS: Hematocrit 22.2 % (36.0-46.0)
[2024-06-24 11:12] LABS: Hemoglobin 7.7 g/dL (12.0-16.0)
--- NOTE | 2024-06-24 13:26 | PC.NURSE ---
called to inquire about pt HGB. he advised he needs the resident to put order for 2 units of blood. resident informed. orders placed. dr. copeland also ask to make Dr. Ashvin Matos aware that pt need clearance for tomorrow surgery. DR. Matos was made aware via cell phone.
[2024-06-24] MEDS: DICLOFENAC 1% TOP GEL 100 GM TUBE TOP ×3 (13:35→22:12)
--- NOTE | 2024-06-24 14:05 | EKG_ITS ---
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
[2024-06-24] MEDS: ACETAMINOPHEN 325 MG TABLET 650 MG PO ×2 (14:26→22:15)
--- NOTE | 2024-06-24 14:45 | PC.SS ---
Rounding note: pending hip surgery for Thursday06/26/24.
[2024-06-24] MEDS: PANTOPRAZOLE INJ 40 MG VIAL IV (18:12)
--- NOTE | 2024-06-24 22:26 | PC.NURSE ---
Jorge (son) called rn- Updated re plan of care.
[2024-06-25] VITALS (9 sets, daily range): BP systolic 113–140; BP diastolic 57–97; PULSE 72–91; RESP 16–98; TEMP 36.5–36.9; O2SAT 16–99
[2024-06-25 03:23] LABS: Basophils % (Auto) 0 % (0-2.5); Eosinophils % (Auto) 0 % (0-10); Hematocrit 25.5 % (36.0-46.0); Immature Granulocytes % (Auto) 0 % (0-0); Immature Granulocytes Auto 0.02 Thou/mm3 (0.00-0.00); Lymphocytes # (Auto) 1.5 Thou/mm3 (1.0-4.8); Lymphocytes % (Auto) 20 % (10-50); Mean Corpuscular HGB Conc 35.3 g/dl (31.0-37.0); Mean Corpuscular Hemoglobin 29.2 pg (25.0-35.0); Mean Corpuscular Volume 83 fL (80-100); Monocytes # (Auto) 0.9 Thou/mm3 (0.0-0.8); Monocytes % (Auto) 11 % (0-12); Neutrophils # (Auto) 5.2 Thou/mm3 (1.8-7.7); Neutrophils % (Auto) 69 % (37-80); Nucleated Red Blood Cell % 0 /100 WBC (0); Platelet Count 142 Thou/mm3 (140-440); RDW Standard Deviation 47.3 fL (36.4-46.3); Red Blood Count 3.08 Miln/mm3 (4.00-5.20); White Blood Count 7.6 Thou/mm3 (3.6-11.0)
[2024-06-25 03:48] LABS: Alanine Aminotransferase 36 U/L (10-49); Albumin, Serum 3.4 gm/dL (3.4-4.8); Albumin/Globulin Ratio 1.7 (1.2-2.2); Alkaline Phosphatase 79 U/L (46-116); Anion Gap 7 (7-16); Aspartate Amino Transferase 25 U/L (0-34); BUN/Creatinine Ratio 57 Ratio (12-20); Bilirubin,Total 1.4 mg/dL (0.3-1.2); Blood Urea Nitrogen 34 mg/dL (9-23); Calcium 8.6 mg/dL (8.3-10.6); Calcium (Corrected) 9.1 mg/dL (8.5-10.1); Carbon Dioxide 27.5 mMol/L (20.0-31.0); Chloride 105 mMol/L (98-107); Creatinine (Component) 0.6 mg/dL (0.6-1.3); Estimated Creatinine Clearance 80.1 mL/min (>60); Glucose 138 mg/dL (74-106); Osmolality,Calculated 287 (275-295); Phosphorous 3.4 mg/dL (2.4-5.1); Potassium 3.9 mMol/L (3.4-5.1); Sodium 139 mMol/L (136-145); Total Protein 5.4 gm/dL (5.7-8.2); eGFR > 60 See Note
[2024-06-25] MEDS: DICLOFENAC 1% TOP GEL 100 GM TUBE TOP ×4 (05:55→23:27)
[2024-06-25] MEDS: MORPHINE SULF INJ 10 MG/ML VIAL 2 MG IVP (05:55)
[2024-06-25] MEDS: INSULIN LISPRO (AdmeLOG) 1 UNIT/0.01 ML UNIT SC ×3 (07:39→23:53)
[2024-06-25] MEDS: levETIRAcetam 250 MG TABLET 1000 MG PO ×2 (07:39→23:27)
[2024-06-25] MEDS: ISOSORBIDE ER MONONITRATE 30 MG TABCR 60 MG PO (07:39)
[2024-06-25] MEDS: PANTOPRAZOLE INJ 40 MG VIAL IV (07:40)
--- NOTE | 2024-06-25 08:58 | PC.SS ---
Addendum entered by Patricia Souza 06/25/24 16:13: SS was contacted by patient's son Jorge, he reported he would like patient to discharge to [facility]. SS contacted Niomi from [facility] and they are able to accept patient when medically cleared. Addendum entered by Patricia Souza 06/25/24 13:24: SS follow up note; SS attempted to contact patient's son, Jorge in regards to choice of facility. SS left Voicemail with contact number. Original Note: SS follow up note; PASSR LVL 1 completed. SS submitted SNF referral through [facility] to all 5 local facilities.
--- NOTE | 2024-06-25 09:43 | ESPR_ITS ---
Documentation for date of: 06/25/24 Subjective Subjective Interval history: Patient seen and examined at bedside. No acute complaints overnight. Patient states she slept, and ate. She denies having a BM. No other complaints at this time. Exam Vital Signs Temp Pulse Resp BP Pulse Ox O2 Del Method O2 Flow Rate 98.2 F 83 16 122/67 98 Room Air 0 06/25/24 08:00 06/25/24 08:00 06/25/24 08:00 06/25/24 08:00 06/25/24 08:00 06/25/24 08:00 06/25/24 02:07 Narrative Exam Constitutional: Resting comfortably, awake, elderly female HEENT: NCAT. Vision grossly intact. Respiratory: CTAB bilaterally. Cardiac: Loud systolic murmur appreciated. Abdomen: Soft, non-distended, non-tender. N MSK: Left leg/knee deformity, right foot transmetatarsal amputation Skin: Warm, dry, intact. Neuro: Motor and sensation grossly intact. Objective Labs 06/25/24 03:10 06/25/24 03:10 Labs: Laboratory Results - last 24 hr 06/24/24 06/24/24 06/24/24 10:40 13:05 13:40 WBC RBC Hgb 7.7 L Hct 22.2 L MCV MCH MCHC RDW Std Deviation Plt Count Neut % (Auto) Lymph % (Auto) [place] % (Auto) Eos % (Auto) Baso % (Auto) Neut # (Auto) Lymph # (Auto) [place] # (Auto) Eos # (Auto) Baso # (Auto) Immature Gran # (Auto) Absolute Nucleated RBC Immature Gran % Nucleated RBC % D-Dimer Cancelled Sodium Potassium Chloride Carbon Dioxide Anion Gap BUN Creatinine Estim Creat Clear Calc eGFR BUN/Creatinine Ratio Glucose Calculated Osmolality Calcium Corrected Calcium Phosphorus Magnesium Total Bilirubin AST ALT Alkaline Phosphatase Troponin I Cancelled Total Protein Albumin Globulin Albumin/Globulin Ratio Blood Type B Positive Antibody Screen NEGATIVE Crossmatch See Detail Blood Bank Wristband ID Yes 06/25/24 03:10 WBC 7.6 RBC 3.08 L Hgb 9.0 L Hct 25.5 L MCV 83 MCH 29.2 MCHC 35.3 RDW Std Deviation 47.3 H Plt Count 142 Neut % (Auto) 69 Lymph % (Auto) 20 [place] % (Auto) 11 Eos % (Auto) 0 Baso % (Auto) 0 Neut # (Auto) 5.2 Lymph # (Auto) 1.5 [place] # (Auto) 0.9 H Eos # (Auto) 0.0 Baso # (Auto) 0.0 Immature Gran # (Auto) 0.02 H Absolute Nucleated RBC 0.00 Immature Gran % 0 Nucleated RBC % 0 D-Dimer Sodium 139 Potassium 3.9 D Chloride 105 Carbon Dioxide 27.5 Anion Gap 7 BUN 34 H Creatinine 0.6 Estim Creat Clear Calc 80.1 eGFR > 60 BUN/Creatinine Ratio 57 H Glucose 138 H Calculated Osmolality 287 Calcium 8.6 Corrected Calcium 9.1 Phosphorus 3.4 Magnesium 2.0 Total Bilirubin 1.4 H D AST 25 ALT 36 Alkaline Phosphatase 79 Troponin I Total Protein 5.4 L Albumin 3.4 Globulin 2.0 L Albumin/Globulin Ratio 1.7 Blood Type Antibody Screen Crossmatch Blood Bank Wristband ID Quality Measures Quality Measures none Advance care planning discussed with:: other Assessment & Plan Assessment Current Active Medications: Generic Name Dose Route Start Last Admin Trade Name Freq PRN Reason Stop Dose Admin Acetaminophen 650 mg 06/23/24 09:48 06/24/24 22:15 Acetaminophen 325 Mg Tablet PO 07/23/24 09:47 650 mg Q6H PRN Administration Fever >100.3 or pain 1-3 Hydrocodone Bitart/Acetaminophen 2 tab 06/24/24 09:34 Hydrocodone/Apap 5/325 Tablet PO 06/28/24 09:47 Q4HR PRN PAIN SCALE 4-10(Mod-Sev Dextrose 25 ml 06/23/24 09:59 Dextrose 50%-Water Inj 50 Ml Syringe IV 07/23/24 09:58 Q15MIN PRN BG 50-70 responsive npo pt Dextrose 50 ml 06/23/24 09:59 Dextrose 50%-Water Inj 50 Ml Syringe IV 07/23/24 09:58 Q15MIN PRN BG <50 OR BG <70 & pt unresponsive Diclofenac Sodium 4 gm 06/24/24 12:00 06/25/24 05:55 Diclofenac 1% Top Gel 100 Gm Tube TOP 07/24/24 11:59 4 gm QID HARPER Administration Glucagon 1 mg 06/23/24 09:59 Glucagon Inj 1 Mg Vial IM Q15MIN PRN BG <70, and no IV access Insulin Human Lispro 0 unit 06/23/24 11:30 06/25/24 07:39 Insulin Lispro (Admelog) 1 Unit/0.01 Ml Unit SC 07/23/24 11:29 1 unit ACHS HARPER Administration Protocol Isosorbide Mononitrate 60 mg 06/24/24 09:00 06/25/24 07:39 Isosorbide Er Mononitrate 30 Mg Tabcr PO 07/24/24 08:59 60 mg QDAY HARPER Administration Levetiracetam 1,000 mg 06/23/24 21:00 06/25/24 07:39 Levetiracetam 250 Mg Tablet PO 07/23/24 20:59 1,000 mg BID HARPER Administration Morphine Sulfate 2 mg 06/23/24 09:48 06/25/24 05:55 Morphine Sulf Inj 10 Mg/Ml Vial IVP 06/28/24 09:47 2 mg Q4HR PRN Administration BREAKTHROUGH PAIN Pantoprazole Sodium 40 mg 06/24/24 16:15 06/25/24 07:40 Pantoprazole Inj 40 Mg Vial IV 07/24/24 16:14 40 mg QDAY HARPER Administration Plan Patient is a 68-year-old female with past history of NIDDM type II, essential hypertension, hyperlipidemia, CAD s/p CABG, history of stroke and seizure disorder who presented to the ER after a ground level fall and admitted for acute displaced left femoral neck fracture. #Acute displaced left femoral neck fracture - Ortho following, plan for surgery 06/26 - NPO after midnight - Pain control - Cardiology clearance: moderate clear elevated risk, recommend proceed with surgery #Acute on chronic normocytic anemia Received 2 unit PRBC - No brisa signs of bleeding noted - Hb stable #CAD s/p CABG TTE shows EF 60-65%, moderate AV stenosis vmax 3.1 - Cardiology Dr. Castellanos following - Holding aspirin, plavix #Essential HTN Holding home meds in the setting of normotension, may consider restarting if BP increases #Elevated LFTs, improving #HLD - Holding statin #Bek-bpwrysy-lhwibxhmq diabetes mellitus type 2 [6.8%] - Hold home metformin - ISS #History of seizure disorder - Continue home Keppra 1g po BID #Hyperkalemia, resolved #GLENYS, resolved Health maintenance: Disposition: Pending left hip surgery, tentatively on 06/26/2024. Diet: Cardiac; NPO after midnight Lines: PIVs GI Prophylaxis: Pantoprazole IV Thrombo Prophylaxis: SCD Code status: FULL CODE I have reviewed and discussed the patient's care with my attending, Dr. Dayna Stanton MD PGY-3
--- NOTE | 2024-06-25 11:05 | ESPR_ITS ---
Documentation for date of: 06/25/24 Subjective Subjective Interval history: Patient was seen at bedside this morning. No overnight events. Patient has still not gotten her surgery. Patient's potassium 3.9 and magnesium 2, recommend to keep above 4 and 2 respectively to avoid any further arrhythmias. Keep potassium greater than 4 and magnesium greater than 2.0 at all times. EKG showed normal sinus rhythm with Q waves in anteroseptal leads indicating old GA. Patient does have a history of CAD and CABG. Patient does not complain of any major cardiac complaints at the present point of time she did have some chest discomfort but EKG did not show any acute ST-T changes. Echocardiogram was completed on 06/24/2024 Normal LV size and function. Mild LVH. Stage I diastolic dysfunction. Estimated EF 60-65% Normal RV size and function. Moderate AV stenosis, mean gradient 21mmHg, vmax 3.1 m/s. Mild thicken MVL. Midl MR, AI. Trace TR. Patient is at moderately elevated risk for proposed surgery given her left femoral neck fracture and recommend to proceed with the surgery with no additional cardiac workup at the present point of time. Exam Vital Signs Temp Pulse Resp BP Pulse Ox O2 Del Method O2 Flow Rate 98.2 F 83 16 122/67 98 Room Air 0 06/25/24 08:00 06/25/24 08:00 06/25/24 08:00 06/25/24 08:00 06/25/24 08:00 06/25/24 08:00 06/25/24 02:07 Narrative Exam General: A/O x2 (not to time), alert and active, frail, thin Eyes: PERRL, EOMI. Anicteric, vision grossly intact. Ears: No ear pain, no ear discharge, Hearing grossly intact. Nose: No nasal discharge. Mouth/Throat: Moist mucous membranes, no redness, no lesions. Neck: Neck supple, non-tender, no cervical lymphadenopathy. Lungs: Clear MARIE to auscultation and percussion, No accessory muscle use. Cardio: Normal S1/S2, regular rhythm, systolic murmur, no JVD Abdomen: Soft, non-tender, no palpable masses, peristalsis present, no guarding or rebound. Extremities: Symmetrical, 1+ peripheral edema MARIE , non-tender, peripheral pulses presents. 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 Neuro: able to move all extremities more alert and active. Able to respond to questions and follow commands. Psych:Cooperative Objective Labs 06/25/24 03:10 06/25/24 03:10 Labs: Laboratory Results - last 24 hr 06/24/24 06/24/24 06/24/24 10:40 13:05 13:40 WBC RBC Hgb 7.7 L Hct 22.2 L MCV MCH MCHC RDW Std Deviation Plt Count Neut % (Auto) Lymph % (Auto) [place] % (Auto) Eos % (Auto) Baso % (Auto) Neut # (Auto) Lymph # (Auto) [place] # (Auto) Eos # (Auto) Baso # (Auto) Immature Gran # (Auto) Absolute Nucleated RBC Immature Gran % Nucleated RBC % D-Dimer Cancelled Sodium Potassium Chloride Carbon Dioxide Anion Gap BUN Creatinine Estim Creat Clear Calc eGFR BUN/Creatinine Ratio Glucose Calculated Osmolality Calcium Corrected Calcium Phosphorus Magnesium Total Bilirubin AST ALT Alkaline Phosphatase Troponin I Cancelled Total Protein Albumin Globulin Albumin/Globulin Ratio Blood Type B Positive Antibody Screen NEGATIVE Crossmatch See Detail Blood Bank Wristband ID Yes 06/25/24 03:10 WBC 7.6 RBC 3.08 L Hgb 9.0 L Hct 25.5 L MCV 83 MCH 29.2 MCHC 35.3 RDW Std Deviation 47.3 H Plt Count 142 Neut % (Auto) 69 Lymph % (Auto) 20 [place] % (Auto) 11 Eos % (Auto) 0 Baso % (Auto) 0 Neut # (Auto) 5.2 Lymph # (Auto) 1.5 [place] # (Auto) 0.9 H Eos # (Auto) 0.0 Baso # (Auto) 0.0 Immature Gran # (Auto) 0.02 H Absolute Nucleated RBC 0.00 Immature Gran % 0 Nucleated RBC % 0 D-Dimer Sodium 139 Potassium 3.9 D Chloride 105 Carbon Dioxide 27.5 Anion Gap 7 BUN 34 H Creatinine 0.6 Estim Creat Clear Calc 80.1 eGFR > 60 BUN/Creatinine Ratio 57 H Glucose 138 H Calculated Osmolality 287 Calcium 8.6 Corrected Calcium 9.1 Phosphorus 3.4 Magnesium 2.0 Total Bilirubin 1.4 H D AST 25 ALT 36 Alkaline Phosphatase 79 Troponin I Total Protein 5.4 L Albumin 3.4 Globulin 2.0 L Albumin/Globulin Ratio 1.7 Blood Type Antibody Screen Crossmatch Blood Bank Wristband ID Quality Measures Quality Measures none Advance care planning discussed with:: patient Assessment & Plan Assessment Current Active Medications: Generic Name Dose Route Start Last Admin Trade Name Mino PRN Reason Stop Dose Admin Acetaminophen 650 mg 06/23/24 09:48 06/24/24 22:15 Acetaminophen 325 Mg Tablet PO 07/23/24 09:47 650 mg Q6H PRN Administration Fever >100.3 or pain 1-3 Hydrocodone Bitart/Acetaminophen 2 tab 06/24/24 09:34 Hydrocodone/Apap 5/325 Tablet PO 06/28/24 09:47 Q4HR PRN PAIN SCALE 4-10(Mod-Sev Dextrose 25 ml 06/23/24 09:59 Dextrose 50%-Water Inj 50 Ml Syringe IV 07/23/24 09:58 Q15MIN PRN BG 50-70 responsive npo pt Dextrose 50 ml 06/23/24 09:59 Dextrose 50%-Water Inj 50 Ml Syringe IV 07/23/24 09:58 Q15MIN PRN BG <50 OR BG <70 & pt unresponsive Diclofenac Sodium 4 gm 06/24/24 12:00 06/25/24 05:55 Diclofenac 1% Top Gel 100 Gm Tube TOP 07/24/24 11:59 4 gm QID HARPER Administration Glucagon 1 mg 06/23/24 09:59 Glucagon Inj 1 Mg Vial IM Q15MIN PRN BG <70, and no IV access Insulin Human Lispro 0 unit 06/23/24 11:30 06/25/24 07:39 Insulin Lispro (Admelog) 1 Unit/0.01 Ml Unit SC 07/23/24 11:29 1 unit ACHS HARPER Administration Protocol Isosorbide Mononitrate 60 mg 06/24/24 09:00 06/25/24 07:39 Isosorbide Er Mononitrate 30 Mg Tabcr PO 07/24/24 08:59 60 mg QDAY HARPER Administration Levetiracetam 1,000 mg 06/23/24 21:00 06/25/24 07:39 Levetiracetam 250 Mg Tablet PO 07/23/24 20:59 1,000 mg BID HARPER Administration Morphine Sulfate 2 mg 06/23/24 09:48 06/25/24 05:55 Morphine Sulf Inj 10 Mg/Ml Vial IVP 06/28/24 09:47 2 mg Q4HR PRN Administration BREAKTHROUGH PAIN Pantoprazole Sodium 40 mg 06/24/24 16:15 06/25/24 07:40 Pantoprazole Inj 40 Mg Vial IV 07/24/24 16:14 40 mg QDAY HARPER Administration Plan 69-year-old female with a past medical history of CAD status post CABG with unknown grafts, history of recent CVA and, history of seizure disorder on Keppra, essential hypertension, type 2 diabetes mellitus, hyperlipidemia, history of status epilepticus, left transseptal temp patient, diabetic peripheral neuropathy, and depression, slurred speech presented to the emergency department after a fall. Cardiology consulted for further preoperative cardiac restratification. 1. Acute displaced left femoral neck fracture 2. Ground-level fall ?Patient came in after a ground-level fall when she was trying to transfer from her commode to her bed. ? Imaging showed acute displaced left femoral neck fracture ? Revised cardiac risk index score of 2 points indicating risk of major cardiac 10.1% ?Chaudhry perioperative risk indicating 1.9% SHAWNA risk EKG showed normal sinus rhythm with Q waves in anteroseptal leads indicating old GA. Patient does have a history of CAD and CABG. Patient does not complain of any major cardiac complaints at the present point of time she did have some chest discomfort but EKG did not show any acute ST-T changes. Echocardiogram was completed on 06/24/2024 Normal LV size and function. Mild LVH. Stage I diastolic dysfunction. Estimated EF 60-65% Normal RV size and function. Moderate AV stenosis, mean gradient 21mmHg, vmax 3.1 m/s. Mild thicken MVL. Midl MR, AI. Trace TR. Patient is at moderately elevated risk for proposed surgery given her left femoral neck fracture and recommend to proceed with the surgery with no additional cardiac workup at the present point of time. Plan: Patient is going for intermediate surgery for the left femoral neck fracture. Patient will need general anesthesia which also makes it as an intermittent risk procedure. Patient baseline functional status is less than 4 METS. 3. CAD s/p CABG 4. CVA 5. Moderate Aortic Stenosis 5. Essential hypertension ?Patient was on aspirin, Plavix, and atorvastatin at home ? Patient had CABG done in [place] in 2019 - Echocardiogram was completed on 06/24/2024 Normal LV size and function. Mild LVH. Stage I diastolic dysfunction. Estimated EF 60-65% Normal RV size and function. Moderate AV stenosis, mean gradient 21mmHg, vmax 3.1 m/s. Mild thicken MVL. Midl MR, AI. Trace TR. Plan: ? Recommend to get records from [place] concerning patient's CABG ? Continue patient's aspirin Plavix and atorvastatin if no immediate surgical interventions to be done 6. DM2 7. Hyperlipidemia ?Continue current management per primary care team 8. Dementia 9. Seizures ?Continue current management as per primary care team Continue rest of management as per primary team. We are grateful to be able to participate in Mrs. Holden's care. Thank you for the consult Plan of care discussed with attending Book Repairer, Dr. Emanuel Baltazar MD PGY-1 Attending Provider Attestation/Addendum I have personally seen and examined the patient separately on the above date of service and discussed the plan of care with the resident. I reviewed the resident Dr. Gunn consultation progress note and agree with the resident findings and plan in the note above and have also edited the documentation to reflect my findings and plan. Jose Castellanos M.D. Interventional Cardiology
[2024-06-25] MEDS: HYDROcodone/APAP 5/325 TABLET 2 TAB PO (12:58)
--- NOTE | 2024-06-25 20:08 | PC.NURSE ---
rn called Jorge(son) re preoperative checklist questions.
--- NOTE | 2024-06-25 20:16 | PC.NURSE ---
rn called Jorge(son) and notified re surgery of left hip will be on thursday06/27/[address] Bautista.
[2024-06-25] MEDS: MORPHINE SULF INJ 10 MG/ML VIAL 4 MG IVP (23:50)
[2024-06-26] VITALS (8 sets, daily range): BP systolic 105–128; BP diastolic 54–67; PULSE 76–92; RESP 16–98; TEMP 36.8–37.6; O2SAT 97–98
[2024-06-26] MEDS: MORPHINE SULF INJ 10 MG/ML VIAL 4 MG IVP ×4 (04:28→23:09)
[2024-06-26 06:24] LABS: Basophils % (Auto) 0 % (0-2.5); Eosinophils % (Auto) 1 % (0-10); Hematocrit 25.9 % (36.0-46.0); Immature Granulocytes % (Auto) 0 % (0-0); Immature Granulocytes Auto 0.01 Thou/mm3 (0.00-0.00); Lymphocytes # (Auto) 1.3 Thou/mm3 (1.0-4.8); Lymphocytes % (Auto) 21 % (10-50); Mean Corpuscular Hemoglobin 29.5 pg (25.0-35.0); Mean Corpuscular Volume 87 fL (80-100); Monocytes # (Auto) 0.7 Thou/mm3 (0.0-0.8); Monocytes % (Auto) 11 % (0-12); Neutrophils # (Auto) 4.4 Thou/mm3 (1.8-7.7); Neutrophils % (Auto) 67 % (37-80); Nucleated Red Blood Cell % 0 /100 WBC (0); Platelet Count 165 Thou/mm3 (140-440); RDW Standard Deviation 48.6 fL (36.4-46.3); Red Blood Count 2.98 Miln/mm3 (4.00-5.20); White Blood Count 6.5 Thou/mm3 (3.6-11.0)
[2024-06-26 06:26] LABS: Alanine Aminotransferase 27 U/L (10-49); Albumin, Serum 3.4 gm/dL (3.4-4.8); Albumin/Globulin Ratio 1.7 (1.2-2.2); Alkaline Phosphatase 78 U/L (46-116); Anion Gap 8 (7-16); Aspartate Amino Transferase 18 U/L (0-34); BUN/Creatinine Ratio 45 Ratio (12-20); Blood Urea Nitrogen 27 mg/dL (9-23); Calcium 8.5 mg/dL (8.3-10.6); Carbon Dioxide 27.5 mMol/L (20.0-31.0); Chloride 102 mMol/L (98-107); Creatinine (Component) 0.6 mg/dL (0.6-1.3); Estimated Creatinine Clearance 80.1 mL/min (>60); Glucose 157 mg/dL (74-106); Magnesium 1.8 mg/dL (1.6-2.6); Osmolality,Calculated 281 (275-295); Phosphorous 3.2 mg/dL (2.4-5.1); Potassium 3.9 mMol/L (3.4-5.1); Sodium 137 mMol/L (136-145); Total Protein 5.4 gm/dL (5.7-8.2); eGFR > 60 See Note
[2024-06-26 06:48] LABS: Hemoglobin 8.8 g/dL (12.0-16.0)
[2024-06-26] MEDS: DICLOFENAC 1% TOP GEL 100 GM TUBE TOP ×4 (06:50→23:16)
[2024-06-26] MEDS: ACETAMINOPHEN 325 MG TABLET 650 MG PO ×2 (06:50→23:15)
[2024-06-26] MEDS: INSULIN LISPRO (AdmeLOG) 1 UNIT/0.01 ML UNIT SC ×3 (07:53→17:29)
[2024-06-26] MEDS: Magnesium Sulfate 2 GM Ivpb 2 GM/50 ML BAG IV (08:35)
[2024-06-26] MEDS: PANTOPRAZOLE INJ 40 MG VIAL IV (08:36)
[2024-06-26] MEDS: ISOSORBIDE ER MONONITRATE 30 MG TABCR 60 MG PO (08:36)
[2024-06-26] MEDS: levETIRAcetam 250 MG TABLET 1000 MG PO ×2 (08:36→23:14)
--- NOTE | 2024-06-26 08:47 | PD.RESPRO ---
Documentation for date of: 06/26/24 Subjective Subjective Interval history: Patient was seen at bedside this morning. No overnight events. Patient has still not gotten her surgery, could happen today. Patient's potassium 3.9 and magnesium 1.8, recommend to keep above 4 and 2 respectively to avoid any further arrhythmias. Keep potassium greater than 4 and magnesium greater than 2.0 at all times. EKG showed normal sinus rhythm with Q waves in anteroseptal leads indicating old LA. Patient does have a history of CAD and CABG. Patient does not complain of any major cardiac complaints at the present point of time she did have some chest discomfort but EKG did not show any acute ST-T changes. Echocardiogram was completed on 06/24/2024 Normal LV size and function. Mild LVH. Stage I diastolic dysfunction. Estimated EF 60-65% Normal RV size and function. Moderate AV stenosis, mean gradient 21mmHg, vmax 3.1 m/s. Mild thicken MVL. Midl MR, AI. Trace TR. Patient is at moderately elevated risk for proposed surgery given her left femoral neck fracture and recommend to proceed with the surgery with no additional cardiac workup at the present point of time. Exam Vital Signs Temp Pulse Resp BP Pulse Ox O2 Del Method O2 Flow Rate 98.6 F 80 16 120/64 97 Room Air 0 06/26/24 08:00 06/26/24 08:36 06/26/24 08:00 06/26/24 08:36 06/26/24 08:00 06/26/24 08:00 06/26/24 08:00 Narrative Exam General: A/O x2 (not to time), alert and active, frail, thin Eyes: PERRL, EOMI. Anicteric, vision grossly intact. Ears: No ear pain, no ear discharge, Hearing grossly intact. Nose: No nasal discharge. Mouth/Throat: Moist mucous membranes, no redness, no lesions. Neck: Neck supple, non-tender, no cervical lymphadenopathy. Lungs: Clear MARIE to auscultation and percussion, No accessory muscle use. Cardio: Normal S1/S2, regular rhythm, systolic murmur, no JVD Abdomen: Soft, non-tender, no palpable masses, peristalsis present, no guarding or rebound. Extremities: Symmetrical, 1+ peripheral edema MARIE , non-tender, peripheral pulses presents. 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 Neuro: able to move all extremities more alert and active. Able to respond to questions and follow commands. Psych:Cooperative Objective Labs 06/26/24 04:27 06/26/24 04:27 Labs: Laboratory Results - last 24 hr 06/26/24 04:27 WBC 6.5 RBC 2.98 L Hgb 8.8 L Hct 25.9 L MCV 87 MCH 29.5 MCHC 34.0 RDW Std Deviation 48.6 H Plt Count 165 Neut % (Auto) 67 Lymph % (Auto) 21 [place] % (Auto) 11 Eos % (Auto) 1 Baso % (Auto) 0 Neut # (Auto) 4.4 Lymph # (Auto) 1.3 [place] # (Auto) 0.7 Eos # (Auto) 0.0 Baso # (Auto) 0.0 Immature Gran # (Auto) 0.01 H Absolute Nucleated RBC 0.00 Immature Gran % 0 Nucleated RBC % 0 Sodium 137 Potassium 3.9 Chloride 102 Carbon Dioxide 27.5 Anion Gap 8 BUN 27 H Creatinine 0.6 Estim Creat Clear Calc 80.1 eGFR > 60 BUN/Creatinine Ratio 45 H Glucose 157 H Calculated Osmolality 281 Calcium 8.5 Corrected Calcium 9.0 Phosphorus 3.2 Magnesium 1.8 Total Bilirubin 1.0 AST 18 ALT 27 Alkaline Phosphatase 78 Total Protein 5.4 L Albumin 3.4 Globulin 2.0 L Albumin/Globulin Ratio 1.7 Quality Measures Quality Measures none Advance care planning discussed with:: patient Assessment & Plan Assessment Current Active Medications: Generic Name Dose Route Start Last Admin Trade Name Mikq PRN Reason Stop Dose Admin Acetaminophen 650 mg 06/23/24 09:48 06/26/24 06:50 Acetaminophen 325 Mg Tablet PO 07/23/24 09:47 650 mg Q6H PRN Administration Fever >100.3 or pain 1-3 Dextrose 25 ml 06/23/24 09:59 Dextrose 50%-Water Inj 50 Ml Syringe IV 07/23/24 09:58 Q15MIN PRN BG 50-70 responsive npo pt Dextrose 50 ml 06/23/24 09:59 Dextrose 50%-Water Inj 50 Ml Syringe IV 07/23/24 09:58 Q15MIN PRN BG <50 OR BG <70 & pt unresponsive Diclofenac Sodium 4 gm 06/24/24 12:00 06/26/24 06:50 Diclofenac 1% Top Gel 100 Gm Tube TOP 07/24/24 11:59 4 gm QID HARPER Administration Glucagon 1 mg 06/23/24 09:59 Glucagon Inj 1 Mg Vial IM Q15MIN PRN BG <70, and no IV access Magnesium Sulfate 2 gm in 50 mls @ 25 mls/hr 06/26/24 07:59 06/26/24 08:35 Magnesium Sulfate Ivpb IV 06/26/24 09:58 25 mls/hr X1 ONE Administration Insulin Human Lispro 0 unit 06/23/24 11:30 06/26/24 07:53 Insulin Lispro (Admelog) 1 Unit/0.01 Ml Unit SC 07/23/24 11:29 1 unit ACHS HARPER Administration Protocol Isosorbide Mononitrate 60 mg 06/24/24 09:00 06/26/24 08:36 Isosorbide Er Mononitrate 30 Mg Tabcr PO 07/24/24 08:59 60 mg QDAY HARPER Administration Levetiracetam 1,000 mg 06/23/24 21:00 06/26/24 08:36 Levetiracetam 250 Mg Tablet PO 07/23/24 20:59 1,000 mg BID HARPER Administration Morphine Sulfate 4 mg 06/25/24 15:15 06/26/24 08:42 Morphine Sulf Inj 10 Mg/Ml Vial IVP 06/28/24 09:47 4 mg Q4HR PRN Administration PAIN SCALE 4-10(Mod-Sev Pantoprazole Sodium 40 mg 06/24/24 16:15 06/26/24 08:36 Pantoprazole Inj 40 Mg Vial IV 07/24/24 16:14 40 mg QDAY HARPER Administration Plan 69-year-old female with a past medical history of CAD status post CABG with unknown grafts, history of recent CVA and, history of seizure disorder on Keppra, essential hypertension, type 2 diabetes mellitus, hyperlipidemia, history of status epilepticus, left transseptal temp patient, diabetic peripheral neuropathy, and depression, slurred speech presented to the emergency department after a fall. Cardiology consulted for further preoperative cardiac restratification. 1. Acute displaced left femoral neck fracture 2. Ground-level fall ?Patient came in after a ground-level fall when she was trying to transfer from her commode to her bed. ? Imaging showed acute displaced left femoral neck fracture ? Revised cardiac risk index score of 2 points indicating risk of major cardiac 10.1% ?Chaudhry perioperative risk indicating 1.9% SHAWNA risk EKG showed normal sinus rhythm with Q waves in anteroseptal leads indicating old LA. Patient does have a history of CAD and CABG. Patient does not complain of any major cardiac complaints at the present point of time she did have some chest discomfort but EKG did not show any acute ST-T changes. Echocardiogram was completed on 06/24/2024 Normal LV size and function. Mild LVH. Stage I diastolic dysfunction. Estimated EF 60-65% Normal RV size and function. Moderate AV stenosis, mean gradient 21mmHg, vmax 3.1 m/s. Mild thicken MVL. Midl MR, AI. Trace TR. Patient is at moderately elevated risk for proposed surgery given her left femoral neck fracture and recommend to proceed with the surgery with no additional cardiac workup at the present point of time. Plan: Patient is going for intermediate surgery for the left femoral neck fracture. Patient will need general anesthesia which also makes it as an intermittent risk procedure. Patient baseline functional status is less than 4 METS. 3. CAD s/p CABG 4. CVA 5. Moderate Aortic Stenosis 5. Essential hypertension ?Patient was on aspirin, Plavix, and atorvastatin at home ? Patient had CABG done in [place] in 2019 - Echocardiogram was completed on 06/24/2024 Normal LV size and function. Mild LVH. Stage I diastolic dysfunction. Estimated EF 60-65% Normal RV size and function. Moderate AV stenosis, mean gradient 21mmHg, vmax 3.1 m/s. Mild thicken MVL. Midl MR, AI. Trace TR. Plan: ? Recommend to get records from [place] concerning patient's CABG ? Continue patient's aspirin Plavix and atorvastatin if no immediate surgical interventions to be done 6. DM2 7. Hyperlipidemia ?Continue current management per primary care team 8. Dementia 9. Seizures ?Continue current management as per primary care team Continue rest of management as per primary team. We are grateful to be able to participate in Mrs. Holden's care. Thank you for the consult Plan of care discussed with attending Sales Communications Manager, Dr. Emanuel Baltazar MD PGY-1 Attending Provider Attestation/Addendum I have personally seen and examined the patient separately on the above date of service and discussed the plan of care with the resident. I reviewed the resident Dr. Gunn consultation progress note and agree with the resident findings and plan in the note above and have also edited the documentation to reflect my findings and plan. Jose Castellanos M.D. Interventional Cardiology
--- NOTE | 2024-06-26 09:06 | ESPR_ITS ---
<Statement entered by Carrington Oakes MD - 06/26/24 12:44> Patient was seen and examined at the bedside. Patient was doing well and had no active concerns. Patient appeared to be in mild pain due to her hip. No acute overnight events reported. Patient is currently waiting for surgery for left hip fracture. Orthopedics, Dr. Ramirez plan to do surgery tomorrow. Labs showed stable hemoglobin at 8.8. Chemistry panel also unremarkable. Blood sugars in 150s. Currently on pain regimen with morphine and [place] per surgery recommendations. All labs and orders were reviewed. I saw and examined the patient, and I agree with current management stated by Dr Breonna CERVANTES,PGY1. Plan of care was discussed with the attending physician and resident physician. Disclaimer: Despite multiple revisions, due to the dictation software being used, the document bellow may not be free of grammatical errors including phonetic/typographic errors. However, this does not deter from our commitment to providing health care in the patient's best interest in mind. Dr. Violette MD, PGY 2 Documentation for date of: 06/26/24 Subjective Subjective Interval history: Patient was seen and examined at bedside this AM. No acute exents overnight. Patient tolerating diet, adequate urine output and mentation is at baseline. Patient endorses 10/10 constant left hip pain without radiation Hb 8.8 and HCT 25.9 post 2 units PRBC Transthoracic echocardiogram completed on 06/24/2024 findings include: Normal LV size and function. Mild LVH. Stage I diastolic dysfunction. Estimated EF 60-65% Normal RV size and function. Moderate AV stenosis, mean gradient 21mmHg, vmax 3.1 m/s. Mild thicken MVL. Midl MR, AI. Trace TR. Surgery tentatively on 06/27/2024 Dr. Bautista, orthopedic surgeon recommended to optimize patient's hemoglobin prior to surgery as head of the femur is highly vascular and at high risk of hemorrhage during surgery. Dr. Castellanos,Cardiology was consulted for cardiac clearance and is closely following the case. Appreciate recommendations. Exam Vital Signs Temp Pulse Resp BP Pulse Ox O2 Del Method O2 Flow Rate 98.6 F 80 16 120/64 97 Room Air 0 06/26/24 08:00 06/26/24 08:36 06/26/24 08:00 06/26/24 08:36 06/26/24 08:00 06/26/24 08:00 06/26/24 08:00 Narrative Exam Constitutional Alert, oriented x 2[Person and place] and in mild distress. Elderly female HEENT Vision grossly intact. Patent nares. Trachea midline Respiratory Chest normal on inspection and clear auscultation bilaterally Cardiovascular S1 and S2 audible, RRR. 3/6 ejection systolic murmur heard at right sternal border without radiation to carotids. JVD not assessed. Abdominal Soft and non tender to palpation in all quadrants. BS + Genitourinary No bladder tenderness, no flank pain. Normal to palpation Musculoskeletal Extremities tone within normal limits. No LE edema. Neurological CN II - XII grossly intact. Extremity motor and sensation grossly intact. Skin Left chopart amputation, weak posterior tibial pulse on right, patient lying on her right with hips and knees flexed Psychiatric Patient has good affect, is cooperative Objective Labs 06/26/24 04:27 06/26/24 04:27 Labs: Laboratory Results - last 24 hr 06/26/24 04:27 WBC 6.5 RBC 2.98 L Hgb 8.8 L Hct 25.9 L MCV 87 MCH 29.5 MCHC 34.0 RDW Std Deviation 48.6 H Plt Count 165 Neut % (Auto) 67 Lymph % (Auto) 21 [place] % (Auto) 11 Eos % (Auto) 1 Baso % (Auto) 0 Neut # (Auto) 4.4 Lymph # (Auto) 1.3 [place] # (Auto) 0.7 Eos # (Auto) 0.0 Baso # (Auto) 0.0 Immature Gran # (Auto) 0.01 H Absolute Nucleated RBC 0.00 Immature Gran % 0 Nucleated RBC % 0 Sodium 137 Potassium 3.9 Chloride 102 Carbon Dioxide 27.5 Anion Gap 8 BUN 27 H Creatinine 0.6 Estim Creat Clear Calc 80.1 eGFR > 60 BUN/Creatinine Ratio 45 H Glucose 157 H Calculated Osmolality 281 Calcium 8.5 Corrected Calcium 9.0 Phosphorus 3.2 Magnesium 1.8 Total Bilirubin 1.0 AST 18 ALT 27 Alkaline Phosphatase 78 Total Protein 5.4 L Albumin 3.4 Globulin 2.0 L Albumin/Globulin Ratio 1.7 Quality Measures Quality Measures none Advance care planning discussed with:: other Assessment & Plan Assessment Current Active Medications: Generic Name Dose Route Start Last Admin Trade Name Freq PRN Reason Stop Dose Admin Acetaminophen 650 mg 06/23/24 09:48 06/26/24 06:50 Acetaminophen 325 Mg Tablet PO 07/23/24 09:47 650 mg Q6H PRN Administration Fever >100.3 or pain 1-3 Dextrose 25 ml 06/23/24 09:59 Dextrose 50%-Water Inj 50 Ml Syringe IV 07/23/24 09:58 Q15MIN PRN BG 50-70 responsive npo pt Dextrose 50 ml 06/23/24 09:59 Dextrose 50%-Water Inj 50 Ml Syringe IV 07/23/24 09:58 Q15MIN PRN BG <50 OR BG <70 & pt unresponsive Diclofenac Sodium 4 gm 06/24/24 12:00 06/26/24 06:50 Diclofenac 1% Top Gel 100 Gm Tube TOP 07/24/24 11:59 4 gm QID HARPER Administration Glucagon 1 mg 06/23/24 09:59 Glucagon Inj 1 Mg Vial IM Q15MIN PRN BG <70, and no IV access Magnesium Sulfate 2 gm in 50 mls @ 25 mls/hr 06/26/24 07:59 06/26/24 08:35 Magnesium Sulfate Ivpb IV 06/26/24 09:58 25 mls/hr X1 ONE Administration Insulin Human Lispro 0 unit 06/23/24 11:30 06/26/24 07:53 Insulin Lispro (Admelog) 1 Unit/0.01 Ml Unit SC 07/23/24 11:29 1 unit ACHS HARPER Administration Protocol Isosorbide Mononitrate 60 mg 06/24/24 09:00 06/26/24 08:36 Isosorbide Er Mononitrate 30 Mg Tabcr PO 07/24/24 08:59 60 mg QDAY HARPER Administration Levetiracetam 1,000 mg 06/23/24 21:00 06/26/24 08:36 Levetiracetam 250 Mg Tablet PO 07/23/24 20:59 1,000 mg BID HARPER Administration Morphine Sulfate 4 mg 06/25/24 15:15 06/26/24 08:42 Morphine Sulf Inj 10 Mg/Ml Vial IVP 06/28/24 09:47 4 mg Q4HR PRN Administration PAIN SCALE 4-10(Mod-Sev Pantoprazole Sodium 40 mg 06/24/24 16:15 06/26/24 08:36 Pantoprazole Inj 40 Mg Vial IV 07/24/24 16:14 40 mg QDAY HARPER Administration Plan Patient is a poor historian and majority of history obtained from chart review. Attempted to contact patient's son for additional information but was unsuccessful. Patient is a 68-year-old female with past history of NIDDM type II, essential hypertension, hyperlipidemia, CAD s/p CABG, history of stroke and seizure disorder. Patient presented today with a chief complaint of a ground-level fall. Patient will be admitted for management and treatment of acute displaced left femoral neck fracture. Orthopedics, Dr. Bautista is consulted and closely following the case. 1. Acute displaced left femoral neck fracture secondary to ground-level fall From chart review patient had a ground-level fall 3 days ago. On presentation she complained of 10/10 right hip pain. On imaging hip x-ray revealed left femoral neck displaced fracture. Revised cardiac risk index score of 2 points indicating risk of major cardiac 10.1% Chaudhry perioperative risk indicating 1.9% SHAWNA risk Patient will need general anesthesia which also makes it as an intermittent risk procedure. Patient baseline functional status is less than 4 METS. Patient is at moderately elevated risk for proposed surgery given her left femoral neck fracture and recommend to proceed with the surgery with no additional cardiac workup at the present point of time. Plan: ? Cardiac diet - NPO from midnight - Possible Surgery on 06/27/2024 ? Orthopedics, Dr Bautista consulted and is closely following case. Appreciate recommendations. ? Cardiology, Dr Castellanos consulted for cardiac clearance. Appreciate recommendations. 2. Unstable angina likely 3. Moderate aortic stenosis Patient endorses constant, central chest pain for the past couple of hours. Unable to quantify. Etiology most likely unstable angina. Patient has history of 3-4 stents at [facility] as well as CABG done in 2019 EKG was ordered which was significant for sinus tachycardia, sinus rhythm with no acute ST elevation or depression. Transthoracic echocardiogram completed on 06/24/2024 findings include: Normal LV size and function. Mild LVH. Stage I diastolic dysfunction. Estimated EF 60-65% Normal RV size and function. Moderate AV stenosis, mean gradient 21mmHg, vmax 3.1 m/s. Mild thicken MVL. Midl MR, AI. Trace TR. 4. Acute blood loss anemia?resolved 5. Chronic normocytic anemia From chart review baseline Hb between 11?12. Hb 8.8 and HCT 25.[address] Bautista, orthopedic surgeon recommended to optimize patient's hemoglobin prior to surgery as per head of the femur is highly vascular and at high risk of hemorrhage during surgery. 6. Acute kidney injury prerenal versus renal - resolving Likely secondary to dehydration as patient had ground-level fall and uncertain of how long she was down. Etiology likely prerenal From chart review baseline CR 0.4 On admission CK 451 and CR elevated at 1.3. -----> Cr 0.6 Plan: - Encourage oral fluid intake 7. Essential hypertension On admission BP 134/89 Home medications metoprolol succinate 50 Mg p.o. daily, isosorbide mononitrate 60 Mg p.o. daily, lisinopril 10 Mg p.o. daily Plan: ? Continue home medication isosorbide mononitrate 60 Mg p.o. daily ? Rest of home antihypertensives on hold for now in light of normotension. 8. CAD s/p CABG 9. Hyperlipidemia 10. Transaminitis -resolved Patient's home medication Plavix, aspirin and atorvastatin On admission AST 39, ALT 79 and ALP 117 down trended to AST 30, ALT 50, ALP 91 Plan: ? Antiplatelets on hold for now in anticipation for surgery ? Statin on hold for now in light of egg allergy. Will determine replacement prior to discharge -Will maintain K >4 and Mg >2 at all times to prevent any arrhythmias. 11. Fjr-yrrhlxh-aenhooxmx diabetes mellitus type 2 [6.8%] 12. Diabetic neuropathy S/p left chopart's amputation Patient's recent HbA1c 6.8% from May 2024 Home medication metformin 1 g p.o. twice daily Plan: ? Insulin sliding scale to cover for glucose spikes 13. History of strokes 14. Seizure disorder Patient's home medication Keppra 1 g p.o. twice daily Plan: ? Continue home medication Keppra 1 g p.o. twice daily 15. Hyperkalemia?resolved K5.3 -----> K 3.8 Health maintenance: Disposition: Pending left hip surgery, tentatively on 06/27/2024. Diet: Cardiac. NPO from midnight Lines: pIVs GI Prophylaxis: Pantoprazole IV Thrombo Prophylaxis: None Code status: FULL CODE Plan of care discussed with Attending Dr. Mcintosh and PGY2 Dr. Violette Ravi MD PGY 1 Attending Provider Attestation/Addendum I have discussed and was present for the essential components of the history, physical examination, diagnosis, and treatment plan with the resident. I agree with the patient's care as documented by the resident and amended herein by me. Jamir Mcintosh DO. Although this document has been carefully reviewed, there may still be some phonetic and other typographical errors. These errors are purely grammatical due to imperfections in the software program and should not be construed in any way to compromise the substance of the patient's medical care during this visit.
--- NOTE | 2024-06-26 13:53 | PC.SS ---
Rounding: Plan for SX tomorrow
--- NOTE | 2024-06-26 16:00 | PC.SS ---
File exchanged pt JAIME to [facility]
--- NOTE | 2024-06-26 21:59 | PC.NURSE ---
seen and examined by Lilia Palomino - with orders made and carried out.
[2024-06-27] VITALS (24 sets, daily range): BP systolic 108–137; BP diastolic 60–75; PULSE 59–89; RESP 12–98; TEMP 36.1–37.2; O2SAT 96–99; BMI 20.4
[2024-06-27] MEDS: MELATONIN 3 MG TABLET PO ×2 (00:18→21:35)
[2024-06-27] MEDS: RINGERS LACTATED 500 ML 500 ML 60 ML IV (05:09)
[2024-06-27] MEDS: MORPHINE SULF INJ 10 MG/ML VIAL 4 MG IVP ×4 (05:48→21:35)
[2024-06-27 05:59] LABS: Basophils % (Auto) 0 % (0-2.5); Eosinophils % (Auto) 1 % (0-10); Hematocrit 24.7 % (36.0-46.0); Immature Granulocytes % (Auto) 0 % (0-0); Immature Granulocytes Auto 0.02 Thou/mm3 (0.00-0.00); Lymphocytes # (Auto) 1.6 Thou/mm3 (1.0-4.8); Lymphocytes % (Auto) 24 % (10-50); Mean Corpuscular Hemoglobin 29.6 pg (25.0-35.0); Mean Corpuscular Volume 87 fL (80-100); Monocytes # (Auto) 0.9 Thou/mm3 (0.0-0.8); Monocytes % (Auto) 14 % (0-12); Neutrophils % (Auto) 61 % (37-80); Nucleated Red Blood Cell % 0 /100 WBC (0); Platelet Count 206 Thou/mm3 (140-440); RDW Standard Deviation 47.7 fL (36.4-46.3); Red Blood Count 2.84 Miln/mm3 (4.00-5.20); White Blood Count 6.6 Thou/mm3 (3.6-11.0)
[2024-06-27 06:06] LABS: Hemoglobin 8.4 g/dL (12.0-16.0)
[2024-06-27 06:12] LABS: INR 0.9 (0.9-1.3); Partial Thromboplastin Time 30.2 Seconds (22.0-36.0); Prothrombin Time 10.4 Seconds (9.0-12.2)
[2024-06-27 06:27] LABS: Alanine Aminotransferase 19 U/L (10-49); Albumin, Serum 3.3 gm/dL (3.4-4.8); Albumin/Globulin Ratio 1.7 (1.2-2.2); Alkaline Phosphatase 72 U/L (46-116); Anion Gap 7 (7-16); Aspartate Amino Transferase 13 U/L (0-34); BUN/Creatinine Ratio 46 Ratio (12-20); Blood Urea Nitrogen 23 mg/dL (9-23); Calcium 8.3 mg/dL (8.3-10.6); Calcium (Corrected) 8.9 mg/dL (8.5-10.1); Chloride 103 mMol/L (98-107); Creatinine (Component) 0.5 mg/dL (0.6-1.3); Estimated Creatinine Clearance 96.1 mL/min (>60); Glucose 155 mg/dL (74-106); Magnesium 1.9 mg/dL (1.6-2.6); Osmolality,Calculated 282 (275-295); Phosphorous 3.5 mg/dL (2.4-5.1); Potassium 3.9 mMol/L (3.4-5.1); Sodium 138 mMol/L (136-145); Total Protein 5.3 gm/dL (5.7-8.2); eGFR > 60 See Note
--- NOTE | 2024-06-27 07:54 | ESPR_ITS ---
<Statement entered by Deepthi Suarez MD - 06/27/24 16:41> Patient was examined bedside this morning, she is having surgery today. I discussed with and supervised my co-resident involved in the care of this patient. I agree with the assessment and plan as documented above. Deepthi Suarez,PGY-3 Disclaimer: Despite multiple revisions, due to the dictation software being used, the document below may not be free of grammatical errors including phonetic/typographic errors. However, this does not deter from our commitment to providing health care in the patient's best interest in mind. Documentation for date of: 06/27/24 Subjective Subjective Interval history: Patient was seen and examined at bedside this AM. No acute exents overnight. Patient NPO, adequate urine output and mentation is at baseline. Patient endorses 10/10 constant left hip pain without radiation Hb 8.4 and HCT 24.7 post 2 units PRBC on 06/24/2024 Surgery today 06/27/2024 Dr. Castellanos,Cardiology assessed as moderately elevated risk for proposed surgery given her left femoral neck fracture and recommend to proceed with the surgery with no additional cardiac workup at the present point of time. Dr. Bautista, Orthopedic surgeon will schedule her surgery for today. Exam Vital Signs Temp Pulse Resp BP Pulse Ox O2 Del Method O2 Flow Rate 98.6 F 73 18 132/69 H 98 Room Air 0 06/27/24 04:00 06/27/24 04:00 06/27/24 04:00 06/27/24 04:00 06/27/24 04:00 06/27/24 04:00 06/26/24 16:00 Narrative Exam Constitutional Alert, oriented x 2[Person and place] and in mild distress. Elderly female HEENT Vision grossly intact. Patent nares. Trachea midline Respiratory Chest normal on inspection and clear auscultation bilaterally Cardiovascular S1 and S2 audible, RRR. 3/6 ejection systolic murmur heard at right sternal border without radiation to carotids. JVD not assessed. Abdominal Soft and non tender to palpation in all quadrants. BS + Genitourinary No bladder tenderness, no flank pain. Normal to palpation Musculoskeletal Extremities tone within normal limits. No LE edema. Neurological CN II - XII grossly intact. Extremity motor and sensation grossly intact. Skin Left chopart amputation, weak posterior tibial pulse on right, patient lying on her right with hips and knees flexed Psychiatric Patient has good affect, is cooperative Objective Labs 06/28/24 05:11 06/28/24 05:11 Labs: Laboratory Results - last 24 hr 06/26/24 06/27/24 11:15 04:50 WBC 6.6 RBC 2.84 L Hgb 8.4 L Hct 24.7 L MCV 87 MCH 29.6 MCHC 34.0 RDW Std Deviation 47.7 H Plt Count 206 D Neut % (Auto) 61 Lymph % (Auto) 24 [place] % (Auto) 14 H Eos % (Auto) 1 Baso % (Auto) 0 Neut # (Auto) 4.0 Lymph # (Auto) 1.6 [place] # (Auto) 0.9 H Eos # (Auto) 0.0 Baso # (Auto) 0.0 Immature Gran # (Auto) 0.02 H Absolute Nucleated RBC 0.00 Immature Gran % 0 Nucleated RBC % 0 PT 10.4 INR 0.9 APTT 30.2 Sodium 138 Potassium 3.9 Chloride 103 Carbon Dioxide 28.0 Anion Gap 7 BUN 23 Creatinine 0.5 L Estim Creat Clear Calc 96.1 eGFR > 60 BUN/Creatinine Ratio 46 H Glucose 155 H Calculated Osmolality 282 Calcium 8.3 Corrected Calcium 8.9 Phosphorus 3.5 Magnesium 1.9 Total Bilirubin 1.0 AST 13 ALT 19 Alkaline Phosphatase 72 Total Protein 5.3 L Albumin 3.3 L Globulin 2.0 L Albumin/Globulin Ratio 1.7 Blood Type B Positive Antibody Screen NEGATIVE Crossmatch See Detail Blood Bank Wristband ID Yes Quality Measures Quality Measures none Advance care planning discussed with:: other Assessment & Plan Assessment Current Active Medications: Generic Name Dose Route Start Last Admin Trade Name Freq PRN Reason Stop Dose Admin Acetaminophen 650 mg 06/23/24 09:48 06/26/24 23:15 Acetaminophen 325 Mg Tablet PO 07/23/24 09:47 650 mg Q6H PRN Administration Fever >100.3 or pain 1-3 Dextrose 25 ml 06/23/24 09:59 Dextrose 50%-Water Inj 50 Ml Syringe IV 07/23/24 09:58 Q15MIN PRN BG 50-70 responsive npo pt Dextrose 50 ml 06/23/24 09:59 Dextrose 50%-Water Inj 50 Ml Syringe IV 07/23/24 09:58 Q15MIN PRN BG <50 OR BG <70 & pt unresponsive Diclofenac Sodium 4 gm 06/24/24 12:00 06/27/24 05:42 Diclofenac 1% Top Gel 100 Gm Tube TOP 07/24/24 11:59 Not Given QID HARPER Glucagon 1 mg 06/23/24 09:59 Glucagon Inj 1 Mg Vial IM Q15MIN PRN BG <70, and no IV access Lactated Ringer's 500 mls @ 60 mls/hr 06/27/24 05:00 06/27/24 05:09 Lactated Ringers IV 06/27/24 13:19 60 mls/hr .Q8H20M ONE Administration Magnesium Sulfate 2 gm in 50 mls @ 25 mls/hr 06/27/24 07:45 Magnesium Sulfate Ivpb IV 06/27/24 09:44 X1 ONE Potassium Chloride 10 meq in 100 mls @ 50 mls/hr 06/27/24 07:47 Kcl Ivpb IV 06/27/24 09:46 X1 ONE Insulin Human Lispro 0 unit 06/23/24 11:30 06/27/24 07:39 Insulin Lispro (Admelog) 1 Unit/0.01 Ml Unit SC 07/23/24 11:29 Not Given ACHS [facility] Protocol Isosorbide Mononitrate 60 mg 06/24/24 09:00 06/26/24 08:36 Isosorbide Er Mononitrate 30 Mg Tabcr PO 07/24/24 08:59 60 mg QDAY HARPER Administration Levetiracetam 1,000 mg 06/23/24 21:00 06/26/24 23:14 Levetiracetam 250 Mg Tablet PO 07/23/24 20:59 1,000 mg BID HARPER Administration Melatonin 3 mg 06/26/24 23:30 06/27/24 00:18 Melatonin 3 Mg Tablet PO 07/27/24 20:59 3 mg HS PRN Administration SLEEPLESSNESS Morphine Sulfate 4 mg 06/25/24 15:15 06/27/24 05:48 Morphine Sulf Inj 10 Mg/Ml Vial IVP 06/28/24 09:47 4 mg Q4HR PRN Administration PAIN SCALE 4-10(Mod-Sev Pantoprazole Sodium 40 mg 06/24/24 16:15 06/26/24 08:36 Pantoprazole Inj 40 Mg Vial IV 07/24/24 16:14 40 mg QDAY HARPER Administration Plan Patient is a poor historian and majority of history obtained from chart review. Attempted to contact patient's son for additional information but was unsuccessful. Patient is a 68-year-old female with past history of NIDDM type II, essential hypertension, hyperlipidemia, CAD s/p CABG, history of stroke and seizure disorder. Patient presented today with a chief complaint of a ground-level fall. Patient will be admitted for management and treatment of acute displaced left femoral neck fracture. Orthopedics, Dr. Bautista is consulted and closely following the case. 1. Acute displaced left femoral neck fracture secondary to ground-level fall From chart review patient had a ground-level fall 3 days ago. On presentation she complained of 10/10 right hip pain. On imaging hip x-ray revealed left femoral neck displaced fracture. Revised cardiac risk index score of 2 points indicating risk of major cardiac 10.1% Chaudhry perioperative risk indicating 1.9% SHAWNA risk Patient will need general anesthesia which also makes it as an intermittent risk procedure. Patient baseline functional status is less than 4 METS. Patient is at moderately elevated risk for proposed surgery given her left femoral neck fracture and recommend to proceed with the surgery with no additional cardiac workup at the present point of time. Plan: - NPO - Possible Surgery on 06/27/2024 ? Orthopedics, Dr Bautista consulted and is closely following case. Appreciate recommendations. ? Cardiology, Dr Castellanos consulted for cardiac clearance. Appreciate recommendations. 2. Unstable angina likely 3. Moderate aortic stenosis Patient endorses constant, central chest pain for the past couple of hours. Unable to quantify. Etiology most likely unstable angina. Patient has history of 3-4 stents at [facility] as well as CABG done in 2019 EKG was ordered which was significant for sinus tachycardia, sinus rhythm with no acute ST elevation or depression. Transthoracic echocardiogram completed on 06/24/2024 findings include: Normal LV size and function. Mild LVH. Stage I diastolic dysfunction. Estimated EF 60-65% Normal RV size and function. Moderate AV stenosis, mean gradient 21mmHg, vmax 3.1 m/s. Mild thicken MVL. Midl MR, AI. Trace TR. Plan: ? Please follow-up with your cardiology as outpatient for monitoring of your aortic stenosis. 4. Acute blood loss anemia?resolved 5. Chronic normocytic anemia From chart review baseline Hb between 11?12. Hb 8.4 and HCT 24.7 post 2 units PRBC on 06/24/2024 Dr. Bautista, orthopedic surgeon recommended to optimize patient's hemoglobin prior to surgery as per head of the femur is highly vascular and at high risk of hemorrhage during surgery. 6. Acute kidney injury prerenal versus renal - Resolved Likely secondary to dehydration as patient had ground-level fall and uncertain of how long she was down. Etiology likely prerenal From chart review baseline CR 0.4 On admission CK 451 and CR elevated at 1.3. -----> Cr 0.5 7. Essential hypertension On admission BP 134/89 Home medications metoprolol succinate 50 Mg p.o. daily, isosorbide mononitrate 60 Mg p.o. daily, lisinopril 10 Mg p.o. daily Plan: ? Continue home medication isosorbide mononitrate 60 Mg p.o. daily ? Rest of home antihypertensives on hold for now in light of normotension. 8. CAD s/p CABG 9. Hyperlipidemia 10. Transaminitis -resolved Patient's home medication Plavix, aspirin and atorvastatin On admission AST 39, ALT 79 and ALP 117 down trended to AST 30, ALT 50, ALP 91 Plan: ? Antiplatelets on hold for now in anticipation for surgery ? Statin on hold for now in light of egg allergy. Will determine replacement prior to discharge - Will maintain K >4 and Mg >2 at all times to prevent any arrhythmias. 11. Caz-ivgnewx-clnpjvgoh diabetes mellitus type 2 [6.8%] 12. Diabetic neuropathy S/p left chopart's amputation Patient's recent HbA1c 6.8% from May 2024 Home medication metformin 1 g p.o. twice daily Plan: ? Insulin sliding scale to cover for glucose spikes 13. History of strokes 14. Seizure disorder Patient's home medication Keppra 1 g p.o. twice daily Plan: ? Continue home medication Keppra 1 g p.o. twice daily 15. Hyperkalemia?resolved K5.3 -----> K 3.9 Health maintenance: Disposition: Pending left hip surgery Diet: Cardiac. NPO Lines: pIVs GI Prophylaxis: Pantoprazole IV Thrombo Prophylaxis: SCDs Code status: FULL CODE Plan of care discussed with Attending Dr. Mcintosh and PGY3 Dr. Erick Ravi MD PGY 1 Attending Provider Attestation/Addendum I have discussed and was present for the essential components of the discharge history, physical examination, diagnosis, and discharge treatment plan with the resident. I agree with the patient's discharge care as documented by the resident and amended herein by me. Jamir Mcintosh DO. The patient understood all discharge instructions, all questions were answered satisfactorily. The patient was instructed to return to the Emergency Department is symptoms worsened or persisted. Although this document has been carefully reviewed, there may still be some phonetic and other typographical errors. These errors are purely grammatical due to imperfections in the software program and should not be construed in any way to compromise the substance of the patient's medical care during this visit.
[2024-06-27] MEDS: PANTOPRAZOLE INJ 40 MG VIAL IV (08:21)
[2024-06-27] MEDS: Magnesium Sulfate 2 GM Ivpb 2 GM/50 ML BAG IV (08:23)
[2024-06-27] MEDS: POTASSIUM CHL 10 mEq IVPB 10 MEQ/100 ML BAG 50 MEQ IV (08:27)
[2024-06-27] MEDS: ISOSORBIDE ER MONONITRATE 30 MG TABCR 60 MG PO (08:32)
[2024-06-27] MEDS: levETIRAcetam 250 MG TABLET 1000 MG PO ×2 (08:32→20:58)
--- NOTE | 2024-06-27 10:52 | XR_ITS ---
Examination: Left femur 4 views TECHNIQUE: AP lateral left hip 3 views AP left femur single view total 4 views Fluoroscopy Exam date and time: 01/26/2024 1446 hours INDICATIONS: Left hip fracture June 23, 2024, operative reduction internal fixation hip fracture FINDINGS: Operative reduction internal fixation left hip fracture Satisfactory alignment Satisfactory position orthopedic hardware IMPRESSION: Operative reduction internal fixation left hip fracture with satisfactory alignment Fluoroscopy 114 seconds radiation dose 9.21 milligray 4 spot fluoroscopic films femur
--- NOTE | 2024-06-27 12:17 | ESCONSULT_ITS ---
RE: JENARO ANTONY : 1955 DATE OF CONSULTATION: 06/24/[address] Amezcua for asking me to consult with the patient whom I saw in the emergency room on 06/23/2024. The patient is a rather poor historian. Anyway, the patient fell down and injured her left lower limb. The patient was brought to the emergency room. X-ray was obtained, which revealed fracture of the basal neck of the femur extending into the intertrochanteric region. The patient was admitted for further management. PAST MEDICAL HISTORY: The patient has a history of diabetes mellitus, coronary artery disease, congestive heart failure, high blood pressure, and myocardial infarction. There is a history of depression and also history of cancer. PAST SURGICAL HISTORY: Coronary artery bypass graft surgery, coronary stent. The patient also underwent hysterectomy and joint replacement. DRUG HISTORY: The patient is on metoprolol, metformin, Plavix, isosorbide, atorvastatin, ASA, and lisinopril. ALLERGIES: NILL KNOWN. FAMILY HISTORY AND SOCIAL HISTORY: Noncontributory in this case. PHYSICAL EXAMINATION: Vital Signs: Pulse is 82 per minute. Blood pressure is 110/72. Neck: Soft, supple. No masses felt. Trachea centrally placed. Cardiovascular System: First and second heart sounds normal. No murmur heard. Respiratory System: Bilateral vesicular breath sounds. Chest: Clear. Abdomen: Soft. No mass felt. Bowel sounds present. Extremities: Left lower limb examination reveals tenderness. Dorsalis pedis artery is . DIAGNOSTIC DATA: X-ray and CT scan of the left hip was reviewed. The patient is advised surgical fixation with nail and screws. Risk with anesthesia were explained and that includes, but not limited to reaction to anesthetic agents, cardiac arrest and rarely it might be fatal. Risks with operation includes infection and if that happens, the patient may need further surgical procedure. Other risks include delayed healing, wound dehiscence etc. No guarantee is given regarding the outcome of the procedure and/or relief of symptoms. Appropriate lab work is being done. Since the patient was on Plavix, therefore, we have to wait for its effect to be weaned off. Besides that a consult from [facility] is obtained. The patient's hemoglobin dropped in the morning of 06/24/2024. Two units of blood will be transfused and I discussed with Dr. Dallas and she agrees with that. Tentatively, the surgery is booked for 06/26/2024. DT: 17::20 TT: 19:01:00 Ref: [id number] - TID: [id number]
--- NOTE | 2024-06-27 14:01 | XR_ITS ---
Examination:Left hip AP, lateral, AP pelvis 3 views Technique: Hip AP lateral, AP pelvis, 3 views Exam date and time:June 27, 2024 1508 hrs. Indications: Postop reduction medial fracture today Findings: Comparison June 23, 2024 Operative reduction internal fixation left hip fracture with satisfactory alignment Orthopedic hardware satisfactory position Prominent osteopenia Right hip bones of the pelvis intact Impression: Operative reduction internal fixation left hip fracture with satisfactory alignment.
--- NOTE | 2024-06-27 14:01 | SUR.PHASEI ---
1401 Patient arrived to recovery resting comfortably in bed, drowsy and talking with staff, breathing unlabored, vital signs stable, denies pain, dressing intact to left hip; savanah, adaptic soaked with betadine, fluffs, abd, medipore tape, no bleeding noted, urinary catheter 16F in place with leg secure draining to gravity, post spinal anesthesia assessment via ice patient has dermatome sensation at L1-groin, will continue to monitor, assessment of patient circulation to left lower extremity; skin color normal for patient and warm to touch, unable to find pedal pulses with doppler, Dr. Bautista made aware, no new orders, lung sounds clear upon auscultation, report received from Freeman LAZARO and Dr. Chavez
--- NOTE | 2024-06-27 14:25 | SUR.PHASEI ---
1425 PRBC's started, will monitor patient
--- NOTE | 2024-06-27 14:55 | SUR.PHASEI ---
1455 Patient doing well with blood transfusion, no reaction noted, will continue to monitor
--- NOTE | 2024-06-27 15:00 | SUR.PHASEI ---
1500 XRAY complete per MD order
--- NOTE | 2024-06-27 15:02 | PD.ANESPROG ---
Documentation for date of: 06/27/24 ANESTHESIA NOTE: Patient had spinal anesthesia (without intrathecal Duramorph) and L fascia iliaca nerve block and monitored sedation for L TFN earlier today. Pre-op, I saw her in 376 and spoke with her son on the phone for informed consent. She has significant hx including CAD CABG, HTN, DM, dementia/confusion, non ambulatory per the son from previous b/l LE surgeries. The son reported she has been off Plavix for 1 year and does not take any anticoagulants. She did well intra-op. The surgeon reported more than usual amount of surgical bleeding and so she was given 1 unit of RBC intra-op and 2nd unit is being given in PACU. The surgeon also asked for FFP, which will be deferred to PACU for transfusion if available or defer to the floor team. She has been in PACU post op doing well, awake, calm, NAD, VSS. I just called and gave brief update to her son on the phone. Will defer further management to the floor/primary team, recommend to resume her baseline meds especially cardiac meds unless contraindicated. Perez Chavez MD Anesthesia Progress Note Progress Note Most recent Vital Signs: Last Vital Signs Temp 97.6 F 06/27/24 14:25 Pulse 65 06/27/24 14:25 Resp 12 06/27/24 14:25 BP 114/60 06/27/24 14:25 Pulse Ox 98 06/27/24 14:25 O2 Del Method Room Air 06/27/24 11:56 O2 Flow Rate 0 06/26/24 16:00
--- NOTE | 2024-06-27 15:22 | ESPR_ITS ---
Documentation for date of: 06/27/24 Subjective Subjective Interval history: Interval history: Patient was seen at bedside this morning. No overnight events. Patient scheduled for surgery today and will follow-up after the surgery Keep potassium greater than 4 and magnesium greater than 2.0 at all times. EKG showed normal sinus rhythm with Q waves in anteroseptal leads indicating old NE. Patient does have a history of CAD and CABG. Patient does not complain of any major cardiac complaints at the present point of time she did have some chest discomfort but EKG did not show any acute ST-T changes. Echocardiogram was completed on 06/24/2024 Normal LV size and function. Mild LVH. Stage I diastolic dysfunction. Estimated EF 60-65% Normal RV size and function. Moderate AV stenosis, mean gradient 21mmHg, vmax 3.1 m/s. Mild thicken MVL. Midl MR, AI. Trace TR. Patient is at moderately elevated risk for proposed surgery given her left femoral neck fracture and recommend to proceed with the surgery with no additional cardiac workup at the present point of time. Exam Vital Signs Temp Pulse Resp BP Pulse Ox O2 Del Method O2 Flow Rate 97.6 F 65 12 122/66 98 Room Air 0 06/27/24 14:55 06/27/24 14:55 06/27/24 14:55 06/27/24 14:55 06/27/24 14:55 06/27/24 11:56 06/26/24 16:00 Narrative Exam General: A/O x2 (not to time), alert and active, frail, thin Eyes: PERRL, EOMI. Anicteric, vision grossly intact. Ears: No ear pain, no ear discharge, Hearing grossly intact. Nose: No nasal discharge. Mouth/Throat: Moist mucous membranes, no redness, no lesions. Neck: Neck supple, non-tender, no cervical lymphadenopathy. Lungs: Clear MARIE to auscultation and percussion, No accessory muscle use. Cardio: Normal S1/S2, regular rhythm, systolic murmur, no JVD Abdomen: Soft, non-tender, no palpable masses, peristalsis present, no guarding or rebound. Extremities: Symmetrical, 1+ peripheral edema MARIE , non-tender, peripheral pulses presents. 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 Neuro: able to move all extremities more alert and active. Able to respond to questions and follow commands. Psych:Cooperative Objective Labs 06/28/24 05:11 06/28/24 05:11 Labs: Laboratory Results - last 24 hr 06/24/24 06/26/24 06/27/24 10:40 11:15 04:50 WBC 6.6 RBC 2.84 L Hgb 8.4 L Hct 24.7 L MCV 87 MCH 29.6 MCHC 34.0 RDW Std Deviation 47.7 H Plt Count 206 D Neut % (Auto) 61 Lymph % (Auto) 24 [place] % (Auto) 14 H Eos % (Auto) 1 Baso % (Auto) 0 Neut # (Auto) 4.0 Lymph # (Auto) 1.6 [place] # (Auto) 0.9 H Eos # (Auto) 0.0 Baso # (Auto) 0.0 Immature Gran # (Auto) 0.02 H Absolute Nucleated RBC 0.00 Immature Gran % 0 Nucleated RBC % 0 PT 10.4 INR 0.9 APTT 30.2 Sodium 138 Potassium 3.9 Chloride 103 Carbon Dioxide 28.0 Anion Gap 7 BUN 23 Creatinine 0.5 L Estim Creat Clear Calc 96.1 eGFR > 60 BUN/Creatinine Ratio 46 H Glucose 155 H Calculated Osmolality 282 Calcium 8.3 Corrected Calcium 8.9 Phosphorus 3.5 Magnesium 1.9 Total Bilirubin 1.0 AST 13 ALT 19 Alkaline Phosphatase 72 Total Protein 5.3 L Albumin 3.3 L Globulin 2.0 L Albumin/Globulin Ratio 1.7 Blood Type B Positive Antibody Screen NEGATIVE Crossmatch See Detail See Detail Blood Bank Wristband ID Yes Blood Bank Comment FFP Ready Assessment & Plan A&P Narrative 69-year-old female with a past medical history of CAD status post CABG with unknown grafts, history of recent CVA and, history of seizure disorder on Keppra, essential hypertension, type 2 diabetes mellitus, hyperlipidemia, history of status epilepticus, left transseptal temp patient, diabetic peripheral neuropathy, and depression, slurred speech presented to the emergency department after a fall. Cardiology consulted for further preoperative cardiac restratification. 1. Acute displaced left femoral neck fracture 2. Ground-level fall ?Patient came in after a ground-level fall when she was trying to transfer from her commode to her bed. ? Imaging showed acute displaced left femoral neck fracture ? Revised cardiac risk index score of 2 points indicating risk of major cardiac 10.1% ?Chaudhry perioperative risk indicating 1.9% SHAWNA risk EKG showed normal sinus rhythm with Q waves in anteroseptal leads indicating old NE. Patient does have a history of CAD and CABG. Patient does not complain of any major cardiac complaints at the present point of time she did have some chest discomfort but EKG did not show any acute ST-T changes. Echocardiogram was completed on 06/24/2024 Normal LV size and function. Mild LVH. Stage I diastolic dysfunction. Estimated EF 60-65% Normal RV size and function. Moderate AV stenosis, mean gradient 21mmHg, vmax 3.1 m/s. Mild thicken MVL. Midl MR, AI. Trace TR. Patient is at moderately elevated risk for proposed surgery given her left femoral neck fracture and recommend to proceed with the surgery with no additional cardiac workup at the present point of time. Plan: Patient is going for intermediate surgery for the left femoral neck fracture. Patient will need general anesthesia which also makes it as an intermittent risk procedure. Patient baseline functional status is less than 4 METS. Patient scheduled for the surgery today and will follow-up after the surgery 3. CAD s/p CABG 4. CVA 5. Moderate Aortic Stenosis 5. Essential hypertension ?Patient was on aspirin, Plavix, and atorvastatin at home ? Patient had CABG done in [place] in 2019 - Echocardiogram was completed on 06/24/2024 Normal LV size and function. Mild LVH. Stage I diastolic dysfunction. Estimated EF 60-65% Normal RV size and function. Moderate AV stenosis, mean gradient 21mmHg, vmax 3.1 m/s. Mild thicken MVL. Midl MR, AI. Trace TR. Plan: ? Recommend to get records from [place] concerning patient's CABG ? Continue patient's aspirin Plavix and atorvastatin if no immediate surgical interventions to be done 6. DM2 7. Hyperlipidemia 8. Dementia 9. Seizures Management of rest of the medical conditions as per primary team and other consultants. Thank you for the consult and allowing me to participate in the care of the patient. Cardiology will continue to follow. Jose Castellanos M.D. Interventional Cardiology Time Spent With Patient Time: Total time spent is greater than 50% in coordination of care (as documented) at patient's floor/unit and/or counseling patient:
--- NOTE | 2024-06-27 15:27 | SUR.PHASEI ---
1520 Report given to Shahana LAZARO, awake and talking with staff, breathing unlabored, vital signs stable, denies pain, dressing intact; no bleeding noted, patient eating ice chips tolerating well, patient is going to start eating a jello, urinary catheter in place with leg secure; draining to gravity. 1527 Patient transported via bed to room 376 without incident.
--- NOTE | 2024-06-27 15:37 | PC.SS ---
Rounding note: patient scheduled for surgery today.
--- NOTE | 2024-06-27 15:57 | PC.NURSE ---
Per report pt received 1 unit PRBC in surgery, 1 started in PACU. FFP to be given.
[2024-06-27] MEDS: INSULIN LISPRO (AdmeLOG) 1 UNIT/0.01 ML UNIT SC ×2 (17:22→21:19)
[2024-06-27] MEDS: ACETAMINOPHEN 325 MG TABLET 650 MG PO (20:59)
[2024-06-27] MEDS: ceFAZolin/D5W 1 GM IVPB 1 GM/50 ML BAG IV (21:00)
[2024-06-27] MEDS: DICLOFENAC 1% TOP GEL 100 GM TUBE TOP (21:12)
[2024-06-28] VITALS (11 sets, daily range): BP systolic 96–144; BP diastolic 58–76; PULSE 66–75; RESP 16–100; TEMP 36.2–37.2; O2SAT 93–98; BMI 12.0
[2024-06-28] MEDS: MORPHINE SULF INJ 10 MG/ML VIAL 4 MG IVP (02:34)
[2024-06-28] MEDS: ceFAZolin/D5W 1 GM IVPB 1 GM/50 ML BAG IV (04:58)
[2024-06-28] MEDS: DICLOFENAC 1% TOP GEL 100 GM TUBE TOP (05:03)
[2024-06-28 06:10] LABS: Basophils % (Auto) 0 % (0-2.5); Eosinophils % (Auto) 0 % (0-10); Hematocrit 26.9 % (36.0-46.0); Hemoglobin 9.3 g/dL (12.0-16.0); Immature Granulocytes % (Auto) 0 % (0-0); Immature Granulocytes Auto 0.02 Thou/mm3 (0.00-0.00); Lymphocytes # (Auto) 0.8 Thou/mm3 (1.0-4.8); Lymphocytes % (Auto) 12 % (10-50); Mean Corpuscular HGB Conc 34.6 g/dl (31.0-37.0); Mean Corpuscular Hemoglobin 29.4 pg (25.0-35.0); Mean Corpuscular Volume 85 fL (80-100); Monocytes # (Auto) 0.8 Thou/mm3 (0.0-0.8); Monocytes % (Auto) 12 % (0-12); Neutrophils % (Auto) 76 % (37-80); Nucleated Red Blood Cell % 0 /100 WBC (0); Platelet Count 214 Thou/mm3 (140-440); RDW Standard Deviation 45.9 fL (36.4-46.3); Red Blood Count 3.16 Miln/mm3 (4.00-5.20); White Blood Count 6.6 Thou/mm3 (3.6-11.0)
[2024-06-28 06:42] LABS: Alanine Aminotransferase 26 U/L (10-49); Albumin, Serum 3.4 gm/dL (3.4-4.8); Albumin/Globulin Ratio 1.5 (1.2-2.2); Alkaline Phosphatase 75 U/L (46-116); Anion Gap 8 (7-16); Aspartate Amino Transferase < 10 U/L (0-34); BUN/Creatinine Ratio 50 Ratio (12-20); Blood Urea Nitrogen 30 mg/dL (9-23); Calcium 8.5 mg/dL (8.3-10.6); Carbon Dioxide 26.4 mMol/L (20.0-31.0); Chloride 101 mMol/L (98-107); Creatinine (Component) 0.6 mg/dL (0.6-1.3); Estimated Creatinine Clearance 80.1 mL/min (>60); Globulin 2.2 gm/dL (2.3-3.5); Glucose 269 mg/dL (74-106); Osmolality,Calculated 285 (275-295); Phosphorous 3.5 mg/dL (2.4-5.1); Potassium 4.7 mMol/L (3.4-5.1); Sodium 135 mMol/L (136-145); Total Protein 5.6 gm/dL (5.7-8.2); eGFR > 60 See Note
[2024-06-28] MEDS: INSULIN LISPRO (AdmeLOG) 1 UNIT/0.01 ML UNIT SC ×4 (08:02→20:52)
--- NOTE | 2024-06-28 09:09 | ESPR_ITS ---
Documentation for date of: 06/28/24 Subjective Subjective Interval history: Patient was seen at bedside this morning. No overnight events. Open reduction with internal fixation as well as trochanteric nail fixation completed along with since his implant by orthopedics on 06/27/2024 without any cardiac complications. Patient doing well but just complained of some pain and was given some pain medications. Patient did receive some PRBC as well as FFP yesterday and hemoglobin is at 9.3 as well as HCT of 26.9. Started on melatonin for sleep Keep potassium greater than 4 and magnesium greater than 2.0 at all times. EKG showed normal sinus rhythm with Q waves in anteroseptal leads indicating old ND. Patient does have a history of CAD and CABG. Echocardiogram was completed on 06/24/2024 Normal LV size and function. Mild LVH. Stage I diastolic dysfunction. Estimated EF 60-65% Normal RV size and function. Moderate AV stenosis, mean gradient 21mmHg, vmax 3.1 m/s. Mild thicken MVL. Midl MR, AI. Trace TR. Exam Vital Signs Temp Pulse Resp BP Pulse Ox O2 Del Method O2 Flow Rate 97.2 F 75 18 134/66 H 97 Room Air 0 06/28/24 08:00 06/28/24 08:00 06/28/24 08:00 06/28/24 08:00 06/28/24 08:00 06/28/24 08:00 06/28/24 00:15 Narrative Exam General: A/O x2 (not to time), alert and active, frail, thin Eyes: PERRL, EOMI. Anicteric, vision grossly intact. Ears: No ear pain, no ear discharge, Hearing grossly intact. Nose: No nasal discharge. Mouth/Throat: Moist mucous membranes, no redness, no lesions. Neck: Neck supple, non-tender, no cervical lymphadenopathy. Lungs: Clear AMRIE to auscultation and percussion, No accessory muscle use. Cardio: Normal S1/S2, regular rhythm, systolic murmur, no JVD Abdomen: Soft, non-tender, no palpable masses, peristalsis present, no guarding or rebound. Extremities: Symmetrical, 1+ peripheral edema MARIE , non-tender, peripheral pulses presents. 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 Neuro: able to move all extremities more alert and active. Able to respond to questions and follow commands. Psych:Cooperative Objective Labs 06/28/24 05:11 06/28/24 05:11 Labs: Laboratory Results - last 24 hr 06/24/24 06/26/24 06/28/24 10:40 11:15 05:11 WBC 6.6 RBC 3.16 L Hgb 9.3 L Hct 26.9 L MCV 85 MCH 29.4 MCHC 34.6 RDW Std Deviation 45.9 Plt Count 214 Neut % (Auto) 76 Lymph % (Auto) 12 [place] % (Auto) 12 Eos % (Auto) 0 Baso % (Auto) 0 Neut # (Auto) 5.0 Lymph # (Auto) 0.8 L [place] # (Auto) 0.8 Eos # (Auto) 0.0 Baso # (Auto) 0.0 Immature Gran # (Auto) 0.02 H Absolute Nucleated RBC 0.00 Immature Gran % 0 Nucleated RBC % 0 Sodium 135 L Potassium 4.7 D Chloride 101 Carbon Dioxide 26.4 Anion Gap 8 BUN 30 H Creatinine 0.6 Estim Creat Clear Calc 80.1 eGFR > 60 BUN/Creatinine Ratio 50 H Glucose 269 H D Calculated Osmolality 285 Calcium 8.5 Corrected Calcium 9.0 Phosphorus 3.5 Magnesium 2.0 Total Bilirubin 1.0 AST < 10 ALT 26 Alkaline Phosphatase 75 Total Protein 5.6 L Albumin 3.4 Globulin 2.2 L Albumin/Globulin Ratio 1.5 Blood Type B Positive Antibody Screen NEGATIVE Crossmatch See Detail See Detail Blood Bank Wristband ID Yes Blood Bank Comment FFP Ready Assessment & Plan A&P Narrative 69-year-old female with a past medical history of CAD status post CABG with unknown grafts, history of recent CVA and, history of seizure disorder on Keppra, essential hypertension, type 2 diabetes mellitus, hyperlipidemia, history of status epilepticus, left transseptal temp patient, diabetic peripheral neuropathy, and depression, slurred speech presented to the emergency department after a fall. Cardiology consulted for further preoperative cardiac restratification. 1. Preoperative cardiac risk assessment 2. Acute displaced left femoral neck fracture 2. Mechanical fall ?Patient came in after a ground-level fall when she was trying to transfer from her commode to her bed. ? Imaging showed acute displaced left femoral neck fracture ? Revised cardiac risk index score of 2 points indicating risk of major cardiac 10.1% ?Chaudhry perioperative risk indicating 1.9% SHAWNA risk EKG showed normal sinus rhythm with Q waves in anteroseptal leads indicating old ND. Patient does have a history of CAD and CABG. Patient does not complain of any major cardiac complaints at the present point of time she did have some chest discomfort but EKG did not show any acute ST-T changes. Echocardiogram was completed on 06/24/2024 Normal LV size and function. Mild LVH. Stage I diastolic dysfunction. Estimated EF 60-65% Normal RV size and function. Moderate AV stenosis, mean gradient 21mmHg, vmax 3.1 m/s. Mild thicken MVL. Midl MR, AI. Trace TR. Patient is at moderately elevated risk for proposed surgery given her left femoral neck fracture and recommend to proceed with the surgery with no additional cardiac workup at the present point of time. Plan: Patient is going for intermediate surgery for the left femoral neck fracture. Patient will need general anesthesia which also makes it as an intermittent risk procedure. Patient baseline functional status is less than 4 METS. 06/28/2024 Open reduction with internal fixation as well as trochanteric nail fixation completed along with since his implant by orthopedics on 06/27/2024 without any cardiac complications. Patient doing well but just complained of some pain and was given some pain medications. Patient did receive some PRBC as well as FFP yesterday and hemoglobin is at 9.3 as well as HCT of 26.9. Started on melatonin for sleep Keep potassium greater than 4 and magnesium greater than 2.0 at all times. 3. CAD s/p CABG 4. CVA 5. Moderate Aortic Stenosis 5. Essential hypertension ?Patient was on aspirin, Plavix, and atorvastatin at home ? Patient had CABG done in [place] in 2019 - Echocardiogram was completed on 06/24/2024 Normal LV size and function. Mild LVH. Stage I diastolic dysfunction. Estimated EF 60-65% Normal RV size and function. Moderate AV stenosis, mean gradient 21mmHg, vmax 3.1 m/s. Mild thicken MVL. Midl MR, AI. Trace TR. Plan: ? Recommend to get records from [place] concerning patient's CABG ? Continue patient's aspirin Plavix and atorvastatin if no immediate surgical interventions to be done 6. DM2 7. Hyperlipidemia 8. Dementia 9. Seizures Management of rest of the medical conditions as per primary team and other consultants. Thank you for the consult and allowing me to participate in the care of the patient. Cardiology will continue to follow. Jose Castellanos M.D. Interventional Cardiology Time Spent With Patient Time: Total time spent is greater than 50% in coordination of care (as documented) at patient's floor/unit and/or counseling patient:
--- NOTE | 2024-06-28 09:18 | ESPR_ITS ---
<Statement entered by Deepthi Suarez MD - 06/28/24 16:23> Patient was examined bedside this morning, she was comfortably eating breakfast in bed. Started her on Plavix and aspirin. Pending PT evaluation for placement. I discussed with and supervised my co-resident involved in the care of this patient. I agree with the assessment and plan as documented above. Deepthi Suarez,PGY-3 Disclaimer: Despite multiple revisions, due to the dictation software being used, the document below may not be free of grammatical errors including phonetic/typographic errors. However, this does not deter from our commitment to providing health care in the patient's best interest in mind. Documentation for date of: 06/28/24 Subjective Subjective Interval history: Patient was seen and examined at bedside this AM. No acute exents overnight. Patient on cardiac diet, adequate urine output and mentation is at baseline. Patient endorses improvement of her left hip pain Hb 9.3 and HCT 26.9 post 2 units PRBC on 06/24/2024 and 1 unit PRBC & 1 unit FFP on 06/27/2024 Day 1 post OP left Hip fixation with IM nail Exam Vital Signs Temp Pulse Resp BP Pulse Ox O2 Del Method O2 Flow Rate 97.2 F 75 18 134/66 H 97 Room Air 0 06/28/24 08:00 06/28/24 08:00 06/28/24 08:00 06/28/24 08:00 06/28/24 08:00 06/28/24 08:00 06/28/24 00:15 Narrative Exam Constitutional Alert, oriented x 2[Person and place] and comfortable. Elderly female HEENT Vision grossly intact. Patent nares. Trachea midline Respiratory Chest normal on inspection and clear auscultation bilaterally Cardiovascular S1 and S2 audible, RRR. 3/6 ejection systolic murmur heard at right sternal border without radiation to carotids. JVD not assessed. Abdominal Soft and non tender to palpation in all quadrants. BS + Genitourinary No bladder tenderness, no flank pain. Normal to palpation Musculoskeletal Extremities tone within normal limits. No LE edema. Neurological CN II - XII grossly intact. Extremity motor and sensation grossly intact. Skin Left chopart amputation, weak posterior tibial pulse on right. Bandage on left hip clean and dry Psychiatric Patient has good affect, is cooperative Objective Labs 06/28/24 05:11 06/28/24 05:11 Labs: Laboratory Results - last 24 hr 06/24/24 06/26/24 06/28/24 10:40 11:15 05:11 WBC 6.6 RBC 3.16 L Hgb 9.3 L Hct 26.9 L MCV 85 MCH 29.4 MCHC 34.6 RDW Std Deviation 45.9 Plt Count 214 Neut % (Auto) 76 Lymph % (Auto) 12 [place] % (Auto) 12 Eos % (Auto) 0 Baso % (Auto) 0 Neut # (Auto) 5.0 Lymph # (Auto) 0.8 L [place] # (Auto) 0.8 Eos # (Auto) 0.0 Baso # (Auto) 0.0 Immature Gran # (Auto) 0.02 H Absolute Nucleated RBC 0.00 Immature Gran % 0 Nucleated RBC % 0 Sodium 135 L Potassium 4.7 D Chloride 101 Carbon Dioxide 26.4 Anion Gap 8 BUN 30 H Creatinine 0.6 Estim Creat Clear Calc 80.1 eGFR > 60 BUN/Creatinine Ratio 50 H Glucose 269 H D Calculated Osmolality 285 Calcium 8.5 Corrected Calcium 9.0 Phosphorus 3.5 Magnesium 2.0 Total Bilirubin 1.0 AST < 10 ALT 26 Alkaline Phosphatase 75 Total Protein 5.6 L Albumin 3.4 Globulin 2.2 L Albumin/Globulin Ratio 1.5 Blood Type B Positive Antibody Screen NEGATIVE Crossmatch See Detail See Detail Blood Bank Wristband ID Yes Blood Bank Comment FFP Ready Quality Measures Quality Measures none Advance care planning discussed with:: other Assessment & Plan Assessment Current Active Medications: Generic Name Dose Route Start Last Admin Trade Name Freq PRN Reason Stop Dose Admin Acetaminophen 650 mg 06/23/24 09:48 06/27/24 20:59 Acetaminophen 325 Mg Tablet PO 07/23/24 09:47 650 mg Q6H PRN Administration Fever >100.3 or pain 1-3 Clopidogrel Bisulfate 75 mg 06/28/24 09:00 Clopidogrel Bisulfate 75 Mg Tablet PO 07/28/24 08:59 QDAY HARPER Dextrose 25 ml 06/23/24 09:59 Dextrose 50%-Water Inj 50 Ml Syringe IV 07/23/24 09:58 Q15MIN PRN BG 50-70 responsive npo pt Dextrose 50 ml 06/23/24 09:59 Dextrose 50%-Water Inj 50 Ml Syringe IV 07/23/24 09:58 Q15MIN PRN BG <50 OR BG <70 & pt unresponsive Diclofenac Sodium 4 gm 06/28/24 09:14 Diclofenac 1% Top Gel 100 Gm Tube TOP 07/24/24 11:59 QID PRN PAIN SCALE 4-10(Mod-Sev Glucagon 1 mg 06/23/24 09:59 Glucagon Inj 1 Mg Vial IM Q15MIN PRN BG <70, and no IV access Insulin Glargine 5 unit 06/28/24 21:00 Insulin Glargine (Lantus) 5 Unit/0.05 Ml (Per 5 Units) SC 07/28/24 20:59 HS HARPER Insulin Human Lispro 0 unit 06/28/24 11:30 Insulin Lispro (Admelog) 1 Unit/0.01 Ml Unit SC 07/28/24 11:29 ACHS [facility] Protocol Isosorbide Mononitrate 60 mg 06/24/24 09:00 06/27/24 08:32 Isosorbide Er Mononitrate 30 Mg Tabcr PO 07/24/24 08:59 60 mg QDAY HARPER Administration Levetiracetam 1,000 mg 06/23/24 21:00 06/27/24 20:58 Levetiracetam 250 Mg Tablet PO 07/23/24 20:59 1,000 mg BID HARPER Administration Melatonin 3 mg 06/26/24 23:30 06/27/24 21:35 Melatonin 3 Mg Tablet PO 07/27/24 20:59 3 mg HS PRN Administration SLEEPLESSNESS Metoprolol Succinate 50 mg 06/28/24 09:00 Metoprolol Succinate Xl 25 Mg Tabcr PO 07/28/24 08:59 QDAY HARPER Morphine Sulfate 4 mg 06/25/24 15:15 06/28/24 02:34 Morphine Sulf Inj 10 Mg/Ml Vial IVP 06/28/24 09:47 4 mg Q4HR PRN Administration PAIN SCALE 4-10(Mod-Sev Ondansetron HCl 4 mg 06/27/24 15:33 Ondansetron Inj 2 Mg/Ml Inj 2 Ml IV 07/27/24 15:32 Q6HR PRN NAUSEA OR VOMITING Pantoprazole Sodium 40 mg 06/24/24 16:15 06/27/24 08:21 Pantoprazole Inj 40 Mg Vial IV 07/24/24 16:14 40 mg QDAY HARPER Administration Plan Patient is a poor historian and majority of history obtained from chart review. Attempted to contact patient's son for additional information but was unsuccessful. Patient is a 68-year-old female with past history of NIDDM type II, essential hypertension, hyperlipidemia, CAD s/p CABG, history of stroke and seizure disorder. Patient presented today with a chief complaint of a ground-level fall. Patient will be admitted for management and treatment of acute displaced left femoral neck fracture. Orthopedics, Dr. Bautista is consulted and closely following the case. 1. Acute displaced left femoral neck fracture secondary to ground-level fall 2. Day 1 post op s/p Left hip fixation with IM nail From chart review patient had a ground-level fall 3 days ago. On presentation she complained of 10/10 right hip pain. On imaging hip x-ray revealed left femoral neck displaced fracture. Revised cardiac risk index score of 2 points indicating risk of major cardiac 10.1% Chaudhry perioperative risk indicating 1.9% SHAWNA risk Patient will need general anesthesia which also makes it as an intermittent risk procedure. Patient baseline functional status is less than 4 METS. Patient is at moderately elevated risk for proposed surgery given her left femoral neck fracture and recommend to proceed with the surgery with no additional cardiac workup at the present point of time. Plan: - Cardiac diet - Physiotherapy ordered ? Resumed aspirin and Plavix, home medication ? Orthopedics, Dr Bautista consulted and is closely following case. Appreciate recommendations. ? Cardiology, Dr Castellanos consulted for cardiac clearance. Appreciate recommendations. 2. Unstable angina likely 3. Moderate aortic stenosis Patient endorses constant, central chest pain for the past couple of hours. Unable to quantify. Etiology most likely unstable angina. Patient has history of 3-4 stents at [facility] as well as CABG done in [place]2019 EKG was ordered which was significant for sinus tachycardia, sinus rhythm with no acute ST elevation or depression. Transthoracic echocardiogram completed on 06/24/2024 findings include: Normal LV size and function. Mild LVH. Stage I diastolic dysfunction. Estimated EF 60-65% Normal RV size and function. Moderate AV stenosis, mean gradient 21mmHg, vmax 3.1 m/s. Mild thicken MVL. Midl MR, AI. Trace TR. Plan: ? Please follow-up with your cardiology as outpatient for monitoring of your aortic stenosis. 4. Acute blood loss anemia?resolved 5. Chronic normocytic anemia From chart review baseline Hb between 11?12. Hb 9.3 and HCT 26.9 post 2 units PRBC on 06/24/2024 and 1 unit PRBC & 1 unit FFP on 06/27/2024 6. Acute kidney injury prerenal versus renal - Resolved Likely secondary to dehydration as patient had ground-level fall and uncertain of how long she was down. Etiology likely prerenal From chart review baseline CR 0.4 On admission CK 451 and CR elevated at 1.3. -----> Cr 0.5 7. Essential hypertension On admission BP 134/89. Currently BP 144/73. Home medications metoprolol succinate 50 Mg p.o. daily, isosorbide mononitrate 60 Mg p.o. daily, lisinopril 10 Mg p.o. daily Plan: ? Continue home medication isosorbide mononitrate 60 Mg p.o. daily - Resumed home medication, metoprolol XL 50 Mg p.o. daily ? Rest of home antihypertensives on hold for now in light of normotension. 8. CAD s/p CABG 9. Hyperlipidemia 10. Transaminitis -resolved Patient's home medication Plavix, aspirin and atorvastatin On admission AST 39, ALT 79 and ALP 117 down trended to AST 30, ALT 50, ALP 91 Plan: ? Presumed antiplatelet aspirin and Plavix ? Statin on hold for now in light of egg allergy. Will determine replacement prior to discharge - Will maintain K >4 and Mg >2 at all times to prevent any arrhythmias. 11. [id number] diabetes mellitus type 2 [6.8%] 12. Diabetic neuropathy S/p left chopart's amputation Patient's recent HbA1c 6.8% from May 2024 Home medication metformin 1 g p.o. twice daily Fasting blood glucose 269 this a.m. Overnight blood sugars in the 300s Plan: - Started on Insulin glargine 5 u HS ? Switch to moderate insulin sliding scale to cover for glucose spikes 13. History of strokes 14. Seizure disorder Patient's home medication Keppra 1 g p.o. twice daily Plan: ? Continue home medication Keppra 1 g p.o. twice daily 15. Hyperkalemia?resolved K5.3 -----> K 3.9 Health maintenance: Disposition: D1 post Op Left Hip fixation. Resumed antiplatets, Physiotherapy today. Diet: Cardiac Lines: pIVs GI Prophylaxis: Pantoprazole IV Thrombo Prophylaxis: SCDs Code status: FULL CODE Plan of care discussed with Attending Dr. [place] and PGY3 Dr. Erick Ravi MD PGY 1 Attending Provider Attestation/Addendum Kerri Rankin, , attest that I was physically present for the montez portions of the service and evaluated the patient with the resident and I reviewed and discussed the case with the resident and agree with the resident's findings and plans of care as documented above Patient seen and evaluated this AM. Patient is much more comfortable today. She is POD1. No acute events overnight. Dressing over right hip is CDI. Will resume home DAPT which will also cover DVT ppx per ortho. Anticipate DC back to SNF in next 24-48h once cleared by ortho.
--- NOTE | 2024-06-28 09:45 | ESOP_ITS ---
Date of Procedure 06/27/24 Pre Op Diagnosis Displaced comminuted intra-articular fracture left hip Post Op Diagnosis Same Procedure Open reduction internal fixation with trochanteric fixation nail. Synthes implant. Femur size 360 mm long by 12 mm diameter Helical blade size 95 mm Findings Patient sustained comminuted displaced intertrochanter fracture fracture of the left hip Procedure Description Patient was given a spinal anesthesia. Once satisfactory anesthesia achieved patient was put on fracture table. Patient was nicely secured on the fracture table. The fracture was then reduced and checked under C arm and both AP and lateral and found to be extremely good Part was thoroughly prepped and draped. Intravenous antibiotics was given at the time of anesthesia A skin incision was made about couple of inches proximal to greater trochanter extending further proximally by 2 inches. Deeper dissection was carried out. The tensor fascia sony was incised in the line of his skin incision A guide pin was passed through the greater trochanter up to the lesser trochanteric area. Position was checked under C arm in both AP and lateral and once satisfactory position was achieved and reaming up to the lesser trochanter was done Pin was removed and guidewire was passed. Length of the nail was decided after measuring to be 360 mm Starting with size 11.5 the reaming was done up to 13.5 mm. Final decision was made to use size 360 mm long by 12 mm diameter nail Above-mentioned size nail was mounted and slowly advanced into the marrow canal Following that jig for the placement of the helical blade was placed. The lateral aspect of the left thigh was then incised. Deeper dissection carried out. Tensor fascia sony was incised Along that the jig was placed adjacent to the lateral cortex of the femur A guidepin was then passed up to the subchondral portion of the head of the femur Patient was checked under C arm and both AP and lateral and once satisfactory position was achieved then the length of the helical blade was decided to be 95 mm The lateral cortex was breached. Following that with the help of reamer up to the subchondral portion of the head of the femur it was reamed Size 95 mm helical blade was mounted and slowly advanced into the marrow canal Following that position was checked under C arm and both AP and lateral. Once satisfactory position was achieved then the placement jig was removed for the helical blade With the help of flexible screwdriver the top precipitator operator helper was tightened. With the help of fixed a screwdriver the placement jig was removed Wound was irrigated with antibiotic solution every 4 to 5 minutes L[place]ier the soft tissue was closed with with a 2-0 Vicryl in an interrupted fashion. Skin was closed with savanah Sterile dressing was applied after cleaning the wound Patient tolerated procedure well. Estimated blood loss 100 mL. Prognosis fair Anesthesia spinal Pathology / specimen None Estimated Blood Loss 100 Surgeon Luis Bautista MD Surgical Staff Operation Date: 06/27/24 11:30 Case Staff Anesthesiologist: Perez Chavez
[2024-06-28] MEDS: levETIRAcetam 250 MG TABLET 1000 MG PO ×2 (09:53→20:52)
[2024-06-28] MEDS: ISOSORBIDE ER MONONITRATE 30 MG TABCR 60 MG PO (09:55)
[2024-06-28] MEDS: METOPROLOL SUCCINATE XL 25 MG TABCR 50 MG PO (09:55)
[2024-06-28] MEDS: CLOPIDOGREL BISULFATE 75 MG TABLET PO (09:56)
[2024-06-28] MEDS: PANTOPRAZOLE INJ 40 MG VIAL IV (09:56)
--- NOTE | 2024-06-28 10:57 | PC.SS ---
Addendum entered by ROX Li 06/28/24 11:16: SS update: Patient is pending PT eval. Possible d/c 1-2 days. Original Note: SS update: Per Lyla at [facility], was updated on patient's anticipated d/c 1-2 days. Lyla informed to please follow up as they have limited female beds available and it will be first come first serve basis. SS to follow up with SNF if female bed available during d/c date.
[2024-06-28] MEDS: ASPIRIN EC 81 MG TABEC PO (11:36)
--- NOTE | 2024-06-28 14:05 | CHAP ---
09:30 AM Visited by spiritual care volunteer Provided prayer for Patient.
[2024-06-28] MEDS: ACETAMINOPHEN 325 MG TABLET 650 MG PO (14:42)
[2024-06-28] MEDS: INSULIN GLARGINE (Lantus) 5 UNIT/0.05 ML (PER 5 UNITS) SC (20:52)
[2024-06-29] VITALS (8 sets, daily range): BP systolic 109–158; BP diastolic 54–74; PULSE 67–69; RESP 15–17; TEMP 37–37.3; O2SAT 95–98
[2024-06-29] MEDS: ACETAMINOPHEN 325 MG TABLET 650 MG PO (00:44)
[2024-06-29 05:42] LABS: Basophils % (Auto) 1 % (0-2.5); Eosinophils # (Auto) 0.1 Thou/mm3 (0.0-0.5); Eosinophils % (Auto) 1 % (0-10); Hematocrit 25.7 % (36.0-46.0); Immature Granulocytes % (Auto) 1 % (0-0); Immature Granulocytes Auto 0.03 Thou/mm3 (0.00-0.00); Lymphocytes # (Auto) 1.7 Thou/mm3 (1.0-4.8); Lymphocytes % (Auto) 25 % (10-50); Mean Corpuscular HGB Conc 34.2 g/dl (31.0-37.0); Mean Corpuscular Hemoglobin 29.4 pg (25.0-35.0); Mean Corpuscular Volume 86 fL (80-100); Monocytes # (Auto) 0.8 Thou/mm3 (0.0-0.8); Monocytes % (Auto) 12 % (0-12); Neutrophils # (Auto) 4.1 Thou/mm3 (1.8-7.7); Neutrophils % (Auto) 61 % (37-80); Nucleated Red Blood Cell % 0 /100 WBC (0); Platelet Count 258 Thou/mm3 (140-440); RDW Standard Deviation 46.9 fL (36.4-46.3); Red Blood Count 2.99 Miln/mm3 (4.00-5.20); White Blood Count 6.7 Thou/mm3 (3.6-11.0)
[2024-06-29 05:53] LABS: Hemoglobin 8.8 g/dL (12.0-16.0)
[2024-06-29 06:23] LABS: Anion Gap 9 (7-16); Blood Urea Nitrogen 24 mg/dL (9-23); Carbon Dioxide 26.5 mMol/L (20.0-31.0); Chloride 105 mMol/L (98-107); Potassium 4.1 mMol/L (3.4-5.1); Sodium 140 mMol/L (136-145)
[2024-06-29 06:24] LABS: Alanine Aminotransferase 43 U/L (10-49); Albumin, Serum 3.2 gm/dL (3.4-4.8); Albumin/Globulin Ratio 1.5 (1.2-2.2); Alkaline Phosphatase 74 U/L (46-116); Aspartate Amino Transferase 57 U/L (0-34); BUN/Creatinine Ratio 48 Ratio (12-20); Bilirubin,Total 0.9 mg/dL (0.3-1.2); Calcium 8.1 mg/dL (8.3-10.6); Calcium (Corrected) 8.7 mg/dL (8.5-10.1); Creatinine (Component) 0.5 mg/dL (0.6-1.3); Estimated Creatinine Clearance 96.1 mL/min (>60); Globulin 2.1 gm/dL (2.3-3.5); Glucose 168 mg/dL (74-106); Magnesium 1.8 mg/dL (1.6-2.6); Osmolality,Calculated 287 (275-295); Phosphorous 2.9 mg/dL (2.4-5.1); Total Protein 5.3 gm/dL (5.7-8.2); eGFR > 60 See Note
[2024-06-29] MEDS: MORPHINE SULF INJ 10 MG/ML VIAL 2 MG IVP (06:36)
[2024-06-29] MEDS: INSULIN LISPRO (AdmeLOG) 1 UNIT/0.01 ML UNIT SC ×2 (07:25→11:15)
[2024-06-29] MEDS: ISOSORBIDE ER MONONITRATE 30 MG TABCR 60 MG PO (08:24)
[2024-06-29] MEDS: METOPROLOL SUCCINATE XL 25 MG TABCR 50 MG PO (08:25)
[2024-06-29] MEDS: ASPIRIN EC 81 MG TABEC PO (08:25)
[2024-06-29] MEDS: levETIRAcetam 250 MG TABLET 1000 MG PO (08:25)
[2024-06-29] MEDS: CLOPIDOGREL BISULFATE 75 MG TABLET PO (08:26)
[2024-06-29] MEDS: PANTOPRAZOLE INJ 40 MG VIAL IV (08:26)
--- NOTE | 2024-06-29 09:30 | PD.RESPRO ---
Documentation for date of: 06/29/24 Exam Vital Signs Temp Pulse Resp BP Pulse Ox O2 Del Method O2 Flow Rate 98.6 F 68 17 158/74 H 98 Room Air 0 06/29/24 08:00 06/29/24 08:25 06/29/24 08:00 06/29/24 08:25 06/29/24 08:00 06/29/24 08:00 06/28/24 00:15 Objective Labs 06/29/24 04:47 06/29/24 04:47 Labs: Laboratory Results - last 24 hr 06/29/24 04:47 WBC 6.7 RBC 2.99 L Hgb 8.8 L Hct 25.7 L MCV 86 MCH 29.4 MCHC 34.2 RDW Std Deviation 46.9 H Plt Count 258 D Neut % (Auto) 61 Lymph % (Auto) 25 [place] % (Auto) 12 Eos % (Auto) 1 Baso % (Auto) 1 Neut # (Auto) 4.1 Lymph # (Auto) 1.7 [place] # (Auto) 0.8 Eos # (Auto) 0.1 Baso # (Auto) 0.0 Immature Gran # (Auto) 0.03 H Absolute Nucleated RBC 0.00 Immature Gran % 1 H Nucleated RBC % 0 Sodium 140 Potassium 4.1 D Chloride 105 Carbon Dioxide 26.5 Anion Gap 9 BUN 24 H Creatinine 0.5 L Estim Creat Clear Calc 96.1 eGFR > 60 BUN/Creatinine Ratio 48 H Glucose 168 H D Calculated Osmolality 287 Calcium 8.1 L Corrected Calcium 8.7 Phosphorus 2.9 Magnesium 1.8 Total Bilirubin 0.9 AST 57 H ALT 43 Alkaline Phosphatase 74 Total Protein 5.3 L Albumin 3.2 L Globulin 2.1 L Albumin/Globulin Ratio 1.5 Quality Measures Quality Measures none Assessment & Plan Assessment Current Active Medications: Generic Name Dose Route Start Last Admin Trade Name Freq PRN Reason Stop Dose Admin Acetaminophen 650 mg 06/23/24 09:48 06/29/24 00:44 Acetaminophen 325 Mg Tablet PO 07/23/24 09:47 650 mg Q6H PRN Administration Fever >100.3 or pain 1-3 Aspirin 81 mg 06/28/24 11:15 06/29/24 08:25 Aspirin Ec 81 Mg Tabec PO 07/28/24 11:14 81 mg QDAY HARPER Administration Clopidogrel Bisulfate 75 mg 06/28/24 09:00 06/29/24 08:26 Clopidogrel Bisulfate 75 Mg Tablet PO 07/28/24 08:59 75 mg QDAY HARPER Administration Dextrose 25 ml 06/23/24 09:59 Dextrose 50%-Water Inj 50 Ml Syringe IV 07/23/24 09:58 Q15MIN PRN BG 50-70 responsive npo pt Dextrose 50 ml 06/23/24 09:59 Dextrose 50%-Water Inj 50 Ml Syringe IV 07/23/24 09:58 Q15MIN PRN BG <50 OR BG <70 & pt unresponsive Diclofenac Sodium 4 gm 06/28/24 09:14 Diclofenac 1% Top Gel 100 Gm Tube TOP 07/24/24 11:59 QID PRN PAIN SCALE 4-10(Mod-Sev Glucagon 1 mg 06/23/24 09:59 Glucagon Inj 1 Mg Vial IM Q15MIN PRN BG <70, and no IV access Magnesium Sulfate 2 gm in 50 mls @ 25 mls/hr 06/29/24 08:53 Magnesium Sulfate Ivpb IV 06/29/24 10:52 X1 ONE Insulin Glargine 5 unit 06/28/24 21:00 06/28/24 20:52 Insulin Glargine (Lantus) 5 Unit/0.05 Ml (Per 5 Units) SC 07/28/24 20:59 5 unit HS HARPER Administration Insulin Human Lispro 0 unit 06/28/24 11:30 06/29/24 07:25 Insulin Lispro (Admelog) 1 Unit/0.01 Ml Unit SC 07/28/24 11:29 2 unit ACHS HARPER Administration Protocol Isosorbide Mononitrate 60 mg 06/24/24 09:00 06/29/24 08:24 Isosorbide Er Mononitrate 30 Mg Tabcr PO 07/24/24 08:59 60 mg QDAY HARPER Administration Levetiracetam 1,000 mg 06/23/24 21:00 06/29/24 08:25 Levetiracetam 250 Mg Tablet PO 07/23/24 20:59 1,000 mg BID HARPER Administration Lisinopril 10 mg 06/29/24 09:00 Lisinopril 2.5 Mg Tablet PO 07/29/24 08:59 QDAY HARPER Melatonin 3 mg 06/26/24 23:30 06/27/24 21:35 Melatonin 3 Mg Tablet PO 07/27/24 20:59 3 mg HS PRN Administration SLEEPLESSNESS Metoprolol Succinate 50 mg 06/28/24 09:00 06/29/24 08:25 Metoprolol Succinate Xl 25 Mg Tabcr PO 07/28/24 08:59 50 mg QDAY HARPER Administration Ondansetron HCl 4 mg 06/27/24 15:33 Ondansetron Inj 2 Mg/Ml Inj 2 Ml IV 07/27/24 15:32 Q6HR PRN NAUSEA OR VOMITING Pantoprazole Sodium 40 mg 06/24/24 16:15 06/29/24 08:26 Pantoprazole Inj 40 Mg Vial IV 07/24/24 16:14 40 mg QDAY HARPER Administration
[2024-06-29] MEDS: Lisinopril 2.5 MG TABLET 10 MG PO (10:03)
[2024-06-29] MEDS: Magnesium Sulfate 2 GM Ivpb 2 GM/50 ML BAG IV (10:04)
--- NOTE | 2024-06-29 13:32 | ESDS_ITS ---
<Statement entered by Kerri Dallas DO - 06/29/24 15:56> I, Kerri Dallas DO, attest that I was physically present for the montez portions of the service and evaluated the patient with the resident and I reviewed and discussed the case with the resident and agree with the resident's findings and plans of care as documented above <Statement entered by Deepthi Suarez MD - 06/29/24 15:52> I discussed with and supervised my co-resident involved in the care of this patient. I agree with the assessment and plan as documented above. Deepthi Suarez,PGY-3 Disclaimer: Despite multiple revisions, due to the dictation software being used, the document below may not be free of grammatical errors including phonetic/typographic errors. However, this does not deter from our commitment to providing health care in the patient's best interest in mind. Planned Discharge Date 06/29/24 DS: Providers Provider Date of admission: 06/23/24 09:46 Primary care physician: JENNIFER Jones Admitting Provider: Kerri Dallas DO Attending Provider on Admission: Kerri Dallas DO Consults: 06/23/24 09:56 Consult to Orthopedic Routine Comment: Left hip fracture Consulting Provider: Luis Bautista Referral Physical Therapy Routine Comment: Physician Instructions: 06/23/24 13:41 Consult to Cardiology Routine Comment: Consulting Provider: Jose Castellanos Instructions: Cardiac clearance for Left hip fixation 06/27/24 15:33 Referral Physical Therapy Routine Comment: Gait Training Physician Instructions: Instructions: both legs full weight bear Attending Provider on DC: Seven Ravi MD Discharging Provider: Seven Ravi MD DS: Diagnosis Problem List Completed Was Problem List Reviewed/Reconciled?: Yes Hospital Course Hospital Course Hospital course: Patient is a poor historian and majority of history obtained from chart review. Attempted to contact patient's son for additional information but was unsuccessful. Patient is a 68-year-old female with past history of NIDDM type II, essential hypertension, hyperlipidemia, CAD s/p CABG, history of stroke and seizure disorder. Patient presented today with a chief complaint of a ground-level fall. Patient will be admitted for management and treatment of acute displaced left femoral neck fracture. Orthopedics, Dr. Bautista was consulted and closely following the case. With regards to her acute displaced left femoral neck fracture, patient was treated with pain control for 5 days until the effects of Plavix wore off. During this time she obtained cardiac clearance and was deemed moderately elevated risk for proposed surgery given her left femoral neck fracture and need for general anesthesia. On 06/27/2024 she had left hip fixation with IM nail and Synthes fixation. On day 1 Postop antiplatelets therapy with aspirin and Plavix were restarted. With regard to her moderate aortic stenosis, patient had an echo done. Transthoracic echocardiogram completed on 06/24/2024 findings include: Normal LV size and function. Mild LVH. Stage I diastolic dysfunction. Estimated EF 60-65% Normal RV size and function. Moderate AV stenosis, mean gradient 21mmHg, vmax 3.1 m/s. Mild thicken MVL. Midl MR, AI. Trace TR. 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 For her acute blood loss anemia, she was treated with 3 units PRBC in total and 1 unit FFP on this admission. Upon discharge. Hemoglobin and hematocrit 8.8, 25.7. With regards to her GLENYS, on admission her CR was elevated at 1.3 which improved to CR 0.5 [at baseline] after IV fluid resuscitation. All patient's labs are now returning to baseline. Patient is now clinically stable and fit for discharge to rehab facility. Discharge diagnoses: 1. Acute displaced left femoral neck fracture s/p fixation with IM nail [06/27/2024] 2. Unstable angina 3. Moderate aortic stenosis 4. Acute blood loss anemia?resolved 5. Chronic normocytic anemia 6. Acute kidney injury?resolved 7. Essential hypertension 8. CAD s/p 3 stents and CABG 9. Hyperlipidemia 10. Transaminitis?resolved 11. Lkf-lksfhzx-cajylsdij diabetes mellitus type 2 [6.8%] 12. Diabetic neuropathy s/p left transmetatarsal amputation 13. History of strokes 14. Seizure disorder 15. Hyperkalemia?resolved Discharge plan: ? We have started you on hydrocodone?acetaminophen for your pain. You can take 1 tablet every 6 hours as necessary. You will be given a 5-day supply, do not give to anyone else to take. ? We have discontinued your medication ezetimibe and levofloxacin. ? Continue taking the rest of your home medications as prescribed. ? Continue working with physiotherapy at rehab facility. ? Please follow-up with your primary doctor within 1 week of discharge. ? Please follow-up with orthopedics, Dr. Bautista within 2 weeks of discharge. ? If you experience any new, persistent or worsening symptoms either call your primary doctor, dial 911 or present to the emergency department. We are grateful to be able to participate in Ms. Holden's care. We wish her the best. Plan of care discussed with Attending Dr. Dallas and PGY3 Dr. Erick Ravi MD PGY 1 Status at Discharge Functional status at discharge: wheelchair bound Overall status at discharge: patient is back to baseline Time Spent with Patient Time attestation: Total time spent providing and/or coordinating discharge services: Time spent: Greater than 30 minutes (37) Exam Vital Signs Temp Pulse Resp BP Pulse Ox O2 Del Method O2 Flow Rate 98.7 F 69 16 115/54 L 95 Room Air 0 06/29/24 11:47 06/29/24 11:47 06/29/24 11:47 06/29/24 11:47 06/29/24 11:47 06/29/24 11:47 06/28/24 00:15 Narrative Exam Constitutional Alert, oriented x 2[Person and place] and comfortable. Elderly female HEENT Vision grossly intact. Patent nares. Trachea midline Respiratory Chest normal on inspection and clear auscultation bilaterally Cardiovascular S1 and S2 audible, RRR. 3/6 ejection systolic murmur heard at right sternal border without radiation to carotids. JVD not assessed. Abdominal Soft and non tender to palpation in all quadrants. BS + Genitourinary No bladder tenderness, no flank pain. Normal to palpation Musculoskeletal Extremities tone within normal limits. No LE edema. Neurological CN II - XII grossly intact. Extremity motor and sensation grossly intact. Skin Left transmetatarsal amputation, weak posterior tibial pulse on right. Bandage on left hip clean and dry Psychiatric Patient has good affect, is cooperative Discharge Plan Plan Patient Disposition: Xfer Skilled Nsg Fac (SNF) Patient condition on transfer: Stable Care Plan Goals: ? We have started you on hydrocodone?acetaminophen for your pain. You can take 1 tablet every 6 hours as necessary. You will be given a 5-day supply, do not give to anyone else to take. ? We have discontinued your medication ezetimibe and levofloxacin. ? Continue taking the rest of your home medications as prescribed. ? Continue working with physiotherapy at rehab facility. ? Please follow-up with your primary doctor within 1 week of discharge. ? Please follow-up with orthopedics, Dr. Bautista within 2 weeks of discharge. ? If you experience any new, persistent or worsening symptoms either call your primary doctor, dial 911 or present to the emergency department. Prescriptions/Referrals Prescriptions/Med Rec: New hydrocodone-acetaminophen 10-325 mg Tablet 1 tab PO Q6H MDD 4tablets per day PRN (Reason: Pain Scale 4-10(Mod-Sev) 5 Days Qty: 20 0RF Continued clopidogrel [Plavix] 75 mg Tablet 75 mg PO QDAY isosorbide mononitrate 60 mg Tablet Extended Release 24 Hr 60 mg PO QDAY atorvastatin 20 mg Tablet 20 mg PO HS aspirin 81 mg tablet,delayed release (DR/EC) 81 mg PO QAM Patient Comments: TAKE ONE TABLET BY MOUTH EVERY DAY IN THE MORNING acetaminophen 500 mg capsule 1,000 mg PO Q6H PRN (Reason: fever or pain) Qty: 30 0RF lisinopril 10 mg tablet 10 mg PO QDAY 30 Days Qty: 30 2RF levetiracetam 1,000 mg tablet 1,000 mg PO BID Qty: 60 0RF metoprolol succinate 50 mg capsule,sprinkle,ER 24hr 50 mg PO QDAY Qty: 30 0RF metformin 1,000 mg tablet 1,000 mg PO BID Qty: 60 0RF Discontinued ezetimibe 10 mg Tablet 10 mg PO QDAY levofloxacin 250 mg tablet 250 mg PO Q24H Qty: 2 0RF Referrals: Wendy New FNP [Primary Care Provider] - Luis Bautista MD [Physician] - Patient/Caregiver Discharge Instructions Other Discharge Diet Instructions: Stay hydrated with Pedialyte and Gatorade. Education Materials: Fx Femur ORIF Tx Print Language: German Stand Alone Forms: Duyen Award Info., Patient Portal Info Letter Discharge Order Discharge Orders: Discharge (Routine); Ordered 06/29/24 Ordered By: Seven Ravi Quality Discharge Quality Measures VTE prophylaxis
[2024-06-29] MEDS: HYDROcodone/APAP 10/325 TAB PO (13:50)
--- NOTE | 2024-06-29 14:32 | PC.SS ---
Customer Contact Representative (KAN) Daniela informed by Dr. Dallas that patient was ready for discharge. SW met with patient and her son, Jorge. SW discussed discharge plan of going to [facility]. Jorge is in agreement. KAN explained IMM and it was signed by Jorge; he is not appealing at this time. KAN contacted [facility] Admission Coordinator, Lyla who reported that patient can be accepted to facility. She requested for SW to upload PASRR. KAN contacted [facility] for insurance authorization (reference number: [id number]).
== END 2024-06-29 16:22 | disposition skilled nursing facility (03) | DRG 308 ==
LOC: SERX 08:38 → SERHOLD 10:03 → S3SX 15:25
PROVIDERS: Emergency Medicine; Orthopaedic Surgery; Admitting Provider Internal Medicine; Emergency Provider Emergency Medicine; PCP Nurse Practitioner Family; Visit Provider Internal Medicine
PROC: 0QS704Z Reposition Left Upper Femur with Internal Fixation Device, Open Approach (ICD-10-PCS; CPT 27245; principal; 2024-06-27 11:30)
DX: S72.142A Displaced intertrochanteric fracture of left femur, initial encounter for closed fracture (principal); D62 Acute posthemorrhagic anemia; I25.110 Atherosclerotic heart disease of native coronary artery with unstable angina pectoris; N17.9 Acute kidney failure, unspecified; S72.002A Fracture of unspecified part of neck of left femur, initial encounter for closed fracture; I10 Essential (primary) hypertension; E78.5 Hyperlipidemia, unspecified; E11.40 Type 2 diabetes mellitus with diabetic neuropathy, unspecified; E86.0 Dehydration; E87.5 Hyperkalemia; F03.90 Unspecified dementia, unspecified severity, without behavioral disturbance, psychotic disturbance, mood disturbance, and anxiety; K21.9 Gastro-esophageal reflux disease without esophagitis; G40.909 Epilepsy, unspecified, not intractable, without status epilepticus; E11.42 Type 2 diabetes mellitus with diabetic polyneuropathy; I25.2 Old myocardial infarction; I35.0 Nonrheumatic aortic (valve) stenosis; Z86.73 Personal history of transient ischemic attack (TIA), and cerebral infarction without residual deficits; Z95.5 Presence of coronary angioplasty implant and graft; Z95.1 Presence of aortocoronary bypass graft; Z85.9 Personal history of malignant neoplasm, unspecified; Z79.02 Long term (current) use of antithrombotics/antiplatelets; Z79.82 Long term (current) use of aspirin; Z79.899 Other long term (current) drug therapy; Z79.84 Long term (current) use of oral hypoglycemic drugs; Z88.0 Allergy status to penicillin; Z91.012 Allergy to eggs; Z91.048 Other nonmedicinal substance allergy status; Z91.041 Radiographic dye allergy status; Z91.013 Allergy to seafood; W18.11XA Fall from or off toilet without subsequent striking against object, initial encounter; Y92.003 Bedroom of unspecified non-institutional (private) residence as the place of occurrence of the external cause
CPT/HCPCS: 36415; 70450; 71045; 72125; 73501; 73502; 73552; 73562; 73700; 76000; 80053; 81001; 82550; 83735; 84100; 84484; 85014; 85018; 85025; 85379; 85610; 85730; 86850; 86900; 86901; 86923; 86927; 87081; 93005; 93306; 96361; 96372; 96374; 96376; 97162; 99285; A4217; A4649; C1713; C1769; J0689; J0690; J1100; J1580; J1643; J1815; J2250; J2270; J2371; J2405; J2470; J2704; J2795; J3010; J3475; J3480; J3490; J7030; J7040; J7120; P9016; P9060; A9270; J1644

== ENCOUNTER 2024-12-03 14:14 | Inpatient (IN) | payer MEDICARE, MEDICAID, SELFPAY ==
[2024-12-03 14:15] VITALS: BMI 21.9
[2024-12-03 15:20] VITALS: BP 88/55; BP 97/63; PULSE 77; RESP 18; O2SAT 100; BMI 21.9
--- NOTE | 2024-12-03 15:49 | XR_ITS ---
Examination: Foot, right, 3 views Technique: AP, oblique, lateral views foot, 3 views Date and time of exam: December 03, 2024 1618 hours INDICATIONS: Redness swelling and pain on the right foot 3 weeks FINDINGS: Bone destruction involving the distal fourth metatarsal and base of the proximal phalanx fourth digit No opaque foreign body Severe osteopenia Soft tissue swelling dorsum of the foot Ankle effusion IMPRESSION: Osteomyelitis distal fourth metatarsal and proximal phalanx fourth digit, consider MRI foot without contrast follow-up
--- NOTE | 2024-12-03 15:50 | PD.EDRME ---
Rapid Medical Screening Exam RME Arrival date/time: 12/03/24 14:14 This is a 69-year-old female that comes in with complaints of right foot swelling and right foot second digit swelling and discolored. Patient states she has had chronic wounds to her right foot but recently she was left under different family care because family needed to go to a . When they came back she had worse wounds to her right foot. Not able to get patient's temperature in triage. Patient has history of dementia seizures, high blood pressure and is diabetic. I have greeted and performed a focused initial assessment of this patient. Initial appropriate labs ordered at this time. A comprehensive ED assessment and evaluation of the patient and analysis of all test and completion of medical decision making process will be conducted by additional ED provider. Chief Complaint: Wound Recheck / Suture Removal Time Seen by Provider: 12/03/24 14:50 Vital signs: Vital Signs Pulse Rate 77 12/03/24 15:20 Respiratory Rate 18 12/03/24 15:20 Blood Pressure 88/55 L 12/03/24 15:20 Pulse Oximetry (%) 100 12/03/24 15:20
[2024-12-03 16:21] LABS: Basophils # (Auto) 0.1 Thou/mm3 (0.0-0.2); Basophils % (Auto) 1 % (0-2.5); Eosinophils # (Auto) 0.2 Thou/mm3 (0.0-0.5); Eosinophils % (Auto) 3 % (0-10); Hemoglobin 11.5 g/dL (12.0-16.0); Immature Granulocytes % (Auto) 0 % (0-0); Immature Granulocytes Auto 0.01 Thou/mm3 (0.00-0.00); Lymphocytes # (Auto) 1.2 Thou/mm3 (1.0-4.8); Lymphocytes % (Auto) 15 % (10-50); Mean Corpuscular HGB Conc 34.8 g/dl (31.0-37.0); Mean Corpuscular Hemoglobin 29.2 pg (25.0-35.0); Mean Corpuscular Volume 84 fL (80-100); Monocytes # (Auto) 0.5 Thou/mm3 (0.0-0.8); Monocytes % (Auto) 6 % (0-12); Neutrophils % (Auto) 75 % (37-80); Nucleated Red Blood Cell % 0 /100 WBC (0); Platelet Count 215 Thou/mm3 (140-440); RDW Standard Deviation 44.4 fL (36.4-46.3); Red Blood Count 3.94 Miln/mm3 (4.00-5.20); White Blood Count 7.9 Thou/mm3 (3.6-11.0)
[2024-12-03 17:02] LABS: Alanine Aminotransferase 27 U/L (10-49); Albumin, Serum 3.4 gm/dL (3.4-4.8); Albumin/Globulin Ratio 1.4 (1.2-2.2); Alkaline Phosphatase 130 U/L (46-116); Anion Gap 10 (7-16); Aspartate Amino Transferase 27 U/L (0-34); BUN/Creatinine Ratio 33 Ratio (12-20); Bilirubin,Total 0.4 mg/dL (0.3-1.2); Blood Urea Nitrogen 20 mg/dL (9-23); Calcium 8.5 mg/dL (8.3-10.6); Carbon Dioxide 28.2 mMol/L (20.0-31.0); Chloride 103 mMol/L (98-107); Creatinine (Component) 0.6 mg/dL (0.6-1.3); Estimated Creatinine Clearance 83.6 mL/min (>60); Globulin 2.4 gm/dL (2.3-3.5); Glucose 311 mg/dL (74-106); Osmolality,Calculated 295 (275-295); Potassium 3.9 mMol/L (3.4-5.1); Procalcitonin 0.06 ng/ml (0.0-0.49); Sodium 141 mMol/L (136-145); Total Protein 5.8 gm/dL (5.7-8.2); eGFR > 60 See Note
--- NOTE | 2024-12-03 19:01 | PD.SURCONS ---
HPI Consult details Consult date: 12/03/24 Reason for consultation narrative: Patient was seen in consultation because of necrosis over the second toe right foot as well as ulcer over the dorsal aspect of the right big toe History of present illness: Patient has had numerous medical problems and she has had a Charcot's joint which was fused on the right ankle as well as right knee. She is not ambulatory and she lives 10 wheelchair Past Medical History Past Medical History NEUROLOGIC: Positive Neurological Disorders, Cerebrovascular Accident, Transient Ischemic Attacks (TIA) and Seizures CARDIAC: Positive Cardiac Disorders, Myocardial Infarction, Angina, Atherosclerotic Heart Disease, Hypercholesterolemia, Edema and Hypertension; Negative Coronary Artery Disease or Congestive Heart Failure RESPIRATORY: Positive Asthma; Negative Chronic Obstructive Pulmonary Disease (COPD) GASTROINTESTINAL: Positive Gastrointestinal Disorders, Gastroesophageal Reflux Disease and Obesity GENITOURINARY: Negative Genitourinary Disorders or Renal Disease MUSCULOSKELETAL: Positive Musculoskeletal Disorders, Arthritis, Degenerative Joint Disease and Osteomyelitis ENDOCRINE: Positive Endocrine Disorders and Diabetes Mellitus Type 2; Negative Diabetes Mellitus Type 1 HEMATOLOGIC: Negative Blood Disorders PSYCHO/SOCIAL: Positive Depression OTHER HISTORY: Positive Hospitalization, Falls, Blood Transfusions, Chemotherapy and Cancer; Negative Blood Transfusion Reaction, Anesthesia Reactions, Organ Transplant, Radiation Therapy, Hyperbaric Therapy, MRSA, Vancomycin-Resistant Enterococci or Measles Family History FAMILY HISTORY: Positive Family Respiratory Disorders, Family Cardiac Disorders, Family Cancer and Family Surgery; Negative Family Gastrointestinal Problems or Family Anesthesia Reaction Surgical History SURGICAL: Positive Cardiac Surgery, Coronary Artery Bypass Graft, Coronary Stent, Joint Replacement and Hysterectomy; Negative Organ Transplant Social History SMOKING STATUS: Never smoker SECOND HAND EXPOSURE: No SUBSTANCE USE: does not use Meds Home Medications and Allergies Home Medications ?Medication ?Instructions ?Recorded ?Confirmed ?Type clopidogrel 75 mg tablet (Plavix) 75 mg PO QDAY 10/31/19 04/23/21 History isosorbide mononitrate 60 mg 60 mg PO QDAY 10/31/19 04/23/21 History tablet,extended release 24 hr atorvastatin 20 mg tablet 20 mg PO HS 07/23/20 04/23/21 History aspirin 81 mg tablet,delayed 81 mg PO QAM 04/23/21 04/23/21 History release Allergies Allergy/AdvReac Type Severity Reaction Status Date / Time lettuce Allergy Severe SWELLING Verified 12/03/24 14:18 Penicillins Allergy Severe HIVES AND Verified 12/03/24 14:18 RESPIRATORY PROBLEMS shellfish derived Allergy Severe Rash Verified 12/03/24 14:18 adhesive Allergy Mild Blister Verified 12/03/24 14:18 iodine Allergy Mild RASH AND Verified 12/03/24 14:18 BLISTERS jaramillo pepper (green pepper) Allergy Unknown RASH, Verified 12/03/24 14:18 SWELLING, SORE TONGUE egg Allergy Unknown RASH Verified 12/03/24 14:18 Exam Vital Signs Pulse Resp BP Pulse Ox 77 18 88/55 L 100 12/03/24 15:20 12/03/24 15:20 12/03/24 15:20 12/03/24 15:20 Narrative Exam Ill examination revealed elderly 69-year-old white female who appeared to be in her stated age. Constitutional Constitutional: mild distress Routine Extremities Exam Comments: Examination of the lower extremities revealed the patient has had a transmetatarsal amputation of the left foot which is healed. On the right side patient has gangrene of the second toe and necrosis over the upper portion of the right big toe.. Pedal pulses are not palpable on either side. Patient has cellulitis over the dorsal aspect of the right foot Results Results: Laboratory Laboratory Narrative: Lab results are within normal limits Results: Imaging Imaging narrative: X-ray of the right foot showed osteomyelitis of the fourth metatarsal head. But it does not correspond to the soft tissue infection seen on the right second toe Assessment & Plan Additional Assessment Additional comments: Impression: Gangrene of the right second toe with cellulitis of the right foot Ischemic changes over the dorsum of the right second toe Plan Plan: I advised the patient to undergo amputation of the second toe which may have to be left open because of infection. She will also require debridement of the dorsal aspect of the right big toe.
[2024-12-03 19:20] VITALS: BP 137/81; PULSE 75; RESP 18; TEMP 35.5; O2SAT 99
[2024-12-03 20:01] VITALS: BP 174/92; O2SAT 100
[2024-12-03 21:00] VITALS: BP 161/84; PULSE 81; RESP 20; TEMP 34.8; O2SAT 100
[2024-12-03] MEDS: CLINDAMYCIN/NS 600 MG IVPB 600 MG/50 ML BAG 100 MG IV (21:08)
--- NOTE | 2024-12-03 21:20 | PD.EDWOUND ---
ED Wound/Laceration-RME/HPI General Chief Complaint: Wound Recheck / Suture Removal Stated Complaint: SORES ON R FOOT X4DAYS HX DM Time Seen by Provider: 12/03/24 14:50 Arrival date/time: 12/03/24 14:14 RME / HPI RME / HPI narrative: 69-year-old female that comes in with complaints of right foot swelling and right foot second digit swelling and discolored. Patient states she has had chronic wounds to her right foot but recently she was left under different family care because family needed to go to a . When they came back she had worse wounds to her right foot. Patient has history of dementia seizures, high blood pressure and is diabetic. Related Data Home Medications ?Medication ?Instructions ?Recorded ?Confirmed clopidogrel 75 mg tablet (Plavix) 75 mg PO QDAY 10/31/19 04/23/21 isosorbide mononitrate 60 mg 60 mg PO QDAY 10/31/19 04/23/21 tablet,extended release 24 hr atorvastatin 20 mg tablet 20 mg PO HS 07/23/20 04/23/21 aspirin 81 mg tablet,delayed 81 mg PO QAM 04/23/21 04/23/21 release Previous Rx's ?Medication ?Instructions ?Recorded acetaminophen 500 mg capsule 1,000 mg (2 x 500 mg) PO Q6H PRN 05/17/21 fever or pain #30 caps lisinopril 10 mg tablet 10 mg PO QDAY 30 days #30 tabs 11/19/22 levetiracetam 1,000 mg tablet 1,000 mg PO BID #60 tabs 05/08/24 metformin 1,000 mg tablet 1,000 mg PO BID #60 tabs 05/08/24 metoprolol succinate 50 mg capsule 50 mg PO QDAY #30 ea 05/08/24 sprinkle, ext. release 24 hr Allergies Allergy/AdvReac Type Severity Reaction Status Date / Time lettuce Allergy Severe SWELLING Verified 12/03/24 14:18 Penicillins Allergy Severe HIVES AND Verified 12/03/24 14:18 RESPIRATORY PROBLEMS shellfish derived Allergy Severe Rash Verified 12/03/24 14:18 adhesive Allergy Mild Blister Verified 12/03/24 14:18 iodine Allergy Mild RASH AND Verified 12/03/24 14:18 BLISTERS jaramillo pepper (green pepper) Allergy Unknown RASH, Verified 12/03/24 14:18 SWELLING, SORE TONGUE egg Allergy Unknown RASH Verified 12/03/24 14:18 Review of Systems Review of Systems Narrative Review of Systems: Review of system reviewed and within normal limits except mentioned in HPI ED Exam Narrative Physical exam: VITAL SIGNS: Reviewed. GENERAL APPEARANCE: Alert and oriented x 1 interactive, follows simple commands, no acute distress, HEAD AND FACE: Non-traumatic. ENT: PERRL, pink conjunctivitis, eyelid no trauma, Mucous membrane moist. NECK: Supple, nontender, no nuchal rigidity. CHEST: No tenderness, no crepitus, no paradoxical movement, no retractions. LUNGS: Clear, well ventilated, symmetric, no rales, no wheezing, no ronchi, no stridor, good breath sounds bilaterally. HEART: Regular rate, regular rhythm, no murmur, no gallops. ABDOMEN: Soft, positive bowel sounds, nondistended, no guarding, nontender, no rebound, no masses, RECTAL: Deferred. GENITAL: Deferred. NEUROLOGICAL: Gross motor function intact sensory function intact, Appropriate for age. MUSCULOSKELETAL: low back nontender, full range of motion. EXTREMITIES: Transmetatarsal amputation on the left, right foot with gangrenous third toe, and skin necrosis dorsal aspect right great toe, foot is swollen and red no drainage noted nontender, no motion on the knee and ankle joints SKIN: Color pink, dry, no rash, no lacerations, no abrasions, no contusions. LYMPHATICS: Deferred. Course Quality Measures none Orders Category Date Time Status Admit to Inpatient Status Routine Admission 12/03/24 21:05 Active Patient Condition Routine Admission 12/03/24 21:05 Ordered Bedside Blood Glucose [facility] Care 12/03/24 21:10 Active COVID-19 Screening Questionnaire NOW Care 12/03/24 19:37 Active Consent [Obtain Written Consent For:] .NOW Care 12/03/24 19:11 Active Decision to Admit X1 Care 12/03/24 19:37 Completed Miscellaneous Nursing Order NOW Care 12/03/24 21:05 Active NPO after Midnight ONCE Care 12/03/24 19:12 Active Notify provider NEEDED Care 12/03/24 21:05 Active Consult to General Surgery Stat Cons 12/03/24 17:58 Ordered Diet Carbohydrate Consistent Diet 12/03/24 Dinner Active Diet NPO after Midnight Diet 12/04/24 00:01 Active XR foot comp RT min 3V Stat Exams 12/03/24 15:49 Completed Blood Culture (Lab) Stat Lab 12/03/24 16:10 Received CBC AM DRAW Lab 12/04/24 05:00 Ordered CBC AM DRAW Lab 12/05/24 05:00 Ordered CBC AM DRAW Lab 12/06/24 05:00 Ordered CBC Stat Lab 12/03/24 16:10 Completed CRP [C-Reactive Protein] Stat Lab 12/03/24 16:10 Completed Comprehensive Metabolic Panel AM DRAW Lab 12/04/24 05:00 Ordered Comprehensive Metabolic Panel AM DRAW Lab 12/05/24 05:00 Ordered Comprehensive Metabolic Panel AM DRAW Lab 12/06/24 05:00 Ordered Comprehensive Metabolic Panel Stat Lab 12/03/24 16:10 Completed Lactate (Lactic Acid) Stat Lab 12/03/24 16:10 Completed Lipid Panel AM DRAW Lab 12/04/24 05:00 Ordered Procalcitonin Stat Lab 12/03/24 16:10 Completed Thyroid Stimulating Hormone AM DRAW Lab 12/04/24 05:00 Ordered Acetaminophen Tab [Tylenol Tab] Med 12/03/24 21:05 Ordered 650 mg PO Q6H PRN Clindamycin/Ns 600 mg Ivpb [Cleocin/Ns Ivpb] Med 12/03/24 17:59 Discontinued 600 mg in 50 ml IV X1 Dextrose 50% Syr [D50w Syringe Abboject] Med 12/03/24 21:10 Ordered 25 ml IV Q15MIN PRN Dextrose 50% Syr [D50w Syringe Abboject] Med 12/03/24 21:10 Ordered 50 ml IV Q15MIN PRN Glucagon Inj Med 12/03/24 21:10 Ordered 1 mg IM Q15MIN PRN INSULIN LISPRO (AdmeLOG) [HumaLOG] Med 12/04/24 07:30 Ordered See Protocol SC AC Insulin Glargine Inj [Lantus Inj] Med 12/04/24 21:00 Ordered 10 unit SC HS Ondansetron Inj [Zofran Inj] Med 12/03/24 21:05 Ordered 4 mg IVP Q6H PRN Pantoprazole Inj [Protonix Inj] Med 12/04/24 09:00 Ordered 40 mg IVP QDAY Code Status Routine Oth 12/03/24 21:05 Ordered Late Tray Request Routine Oth 12/03/24 21:09 Active Vital Signs Vital signs: Vital Signs Pulse Rate 77 12/03/24 15:20 Respiratory Rate 18 12/03/24 15:20 Blood Pressure 88/55 L 12/03/24 15:20 Pulse Oximetry (%) 100 12/03/24 15:20 Wound / Laceration MDM Narrative MDM Narrative:: 69-year-old female that comes in with complaints of right foot swelling and right foot second digit swelling and discolored. Patient states she has had chronic wounds to her right foot but recently she was left under different family care because family needed to go to a . When they came back she had worse wounds to her right foot. Patient has history of dementia seizures, high blood pressure and is diabetic. CBC came back no leukocytosis, C-reactive thin 4.0. X-ray of the foot showed Osteomyelitis distal fourth metatarsal and proximal phalanx fourth digit, consider MRI foot without contrast follow-up Case discussed with Dr. Miranda, general surgeon on-call, who examined the patient in the emergency room and asked me to admit the patient under hospitalist service Patient data External records reviewed:: None Clinical information provided by:: patient and family Social determinants that could affect healthcare access:: none Patient has the following chronic illnesses:: Hypertension dementia diabetes mellitus How is presenting disease/condition affected by chronic disease/condition?: exacerbated by Evaluation data The following diagnostics were reviewed and interpreted by me:: lab results and radiology exam(s) Lab and/or radiology exams considered but not ordered:: None Interpretation Summary: See results in MDM Medications / Prescriptions Medications or Prescriptions considered but not ordered:: None Medication administrations:: Medication Administration History Acetaminophen (Acetaminophen 325 Mg Tablet) 650 mg PO Q6H PRN PRN Reason: Fever >101.5 Stop: 01/02/25 21:04 Dextrose (Dextrose 50%-Water Inj 50 Ml Syringe) 25 ml IV Q15MIN PRN PRN Reason: BG 50-70 responsive npo pt Stop: 01/02/25 21:09 Dextrose (Dextrose 50%-Water Inj 50 Ml Syringe) 50 ml IV Q15MIN PRN PRN Reason: BG <50 OR BG <70 & pt unresponsive Stop: 01/02/25 21:09 Glucagon (Glucagon Inj 1 Mg Vial) 1 mg IM Q15MIN PRN PRN Reason: BG <70, and no IV access Insulin Glargine (Insulin Glargine (Lantus) 5 Unit/0.05 Ml (Per 5 Units)) 10 unit SC HS [facility] Stop: 01/03/25 20:59 Insulin Human Lispro (Insulin Lispro (Admelog) 1 Unit/0.01 Ml Unit) 0 unit SC AC [facility]; Protocol Stop: 01/03/25 07:29 Ondansetron HCl (Ondansetron Inj 2 Mg/Ml Inj 2 Ml) 4 mg IVP Q6H PRN; Protocol PRN Reason: NAUSEA OR VOMITING Stop: 01/02/25 21:04 Pantoprazole Sodium (Pantoprazole Inj 40 Mg Vial) 40 mg IVP QDAY [facility] Stop: 01/03/25 08:59 Discontinued Medications Clindamycin/Sodium Chloride (Cleocin/Ns Ivpb) 600 mg in 50 mls @ 100 mls/hr IV X1 ONE Stop: 12/03/24 18:28 Last Admin: 12/03/24 21:08 Dose: 100 mls/hr Documented By: CG Clindamycin IV Consultations Consultation(s) initiated? (list below): Yes Consultation #1 (Physician, Specialty, Details): Dr Chapin general surgeon on-call thank you Diagnosis Wound Differential Diagnosis: abscess and other (Diabetic toe infection diabetic toe gangrene) Most likely diagnosis given after review of the tests above:: Diabetic toe infection Admission Indicated Admission indicated?: not indicated Admission Request Was there a request for admission?: Yes Admission Attestation Admission request attestation: Discussed case with [Dr. Kennedy] from Hospitalist service regarding admission. Discussed patients ED course, exam findings, labs, and radiology results. The Hospitalist [agrees] to accept the patient for admission. Disposition Plan Disposition Plan: Admit Discharge Plan Plan Patient Disposition: Admit Acute Care w/in Hospital Prescriptions/Referrals Prescriptions/Med Rec: No Action clopidogrel [Plavix] 75 mg Tablet 75 mg PO QDAY isosorbide mononitrate 60 mg Tablet Extended Release 24 Hr 60 mg PO QDAY atorvastatin 20 mg Tablet 20 mg PO HS aspirin 81 mg tablet,delayed release (DR/EC) 81 mg PO QAM Patient Comments: TAKE ONE TABLET BY MOUTH EVERY DAY IN THE MORNING acetaminophen 500 mg capsule 1,000 mg PO Q6H PRN (Reason: fever or pain) Qty: 30 0RF lisinopril 10 mg tablet 10 mg PO QDAY 30 Days Qty: 30 2RF levetiracetam 1,000 mg tablet 1,000 mg PO BID Qty: 60 0RF metoprolol succinate 50 mg capsule,sprinkle,ER 24hr 50 mg PO QDAY Qty: 30 0RF metformin 1,000 mg tablet 1,000 mg PO BID Qty: 60 0RF Referrals: Renu Perkins [employer] [Primary Care Provider] - In 1 week Problem List Clinical Impression: Diabetic foot infection Patient/Caregiver Discharge Instructions Print Language: Albanian Stand Alone Forms: [facility] Award Info., Patient Portal Info Letter
[2024-12-03 21:30] VITALS: TEMP 34.8
--- NOTE | 2024-12-03 21:30 | PC.NURSE ---
Pt provided warm blankets x 3 at this time, per Dr Morton G
[2024-12-03 22:59] VITALS: BP 143/92; PULSE 74; RESP 18; TEMP 34.9; O2SAT 98
[2024-12-03] MEDS: cefTRIAXone/D5w 1gm IV premix 1 GM/50 ML BAG IV (23:46)
[2024-12-04] VITALS (15 sets, daily range): BP systolic 102–135; BP diastolic 51–76; PULSE 62–88; RESP 12–98; TEMP 34.9–37; O2SAT 96–100; BMI 21.9
--- NOTE | 2024-12-04 00:23 | PD.RESHP ---
Documentation for date of: 12/04/24 HPI History of Present Illness Chief complaint: Right foot pain and gangrene History of present illness: Patient is a poor historian and appears to have hearing loss A 68-year-old female with significant past medical history of diabetes mellitus, hypertension, hyperlipidemia, Asthma, CAD status post CABG, CVA, seizure disorder, ?osteomyelitis, left diabetic foot s/p amputation presented to the hospital with chief complaints of pain in the right foot since 2 days. Patient reported that she was apparently normal 2 days back and yesterday she tripped and had a fall. Since then, patient noticed blackish discoloration of right second toe for which she came to the hospital. Denies fever, chest pain, shortness of breath, abdominal pain, diarrhea. ED course: - Vitals at the time of admission are significant for blood pressure 88/54 mmHg, temperature 95.9 ?F - Labs are significant for glucose 311, CRP 4, procalcitonin 0.06 - Right foot x-ray showed osteomyelitis of distal fourth metatarsal and proximal phalanx fourth digit. - Admitted in the hospital for diabetic foot, gangrene and osteomyelitis of right foot Past medical history: Diabetes mellitus, hypertension, hyperlipidemia, asthma, CAD, CVA, seizure disorder, osteomyelitis Past surgical history: Tarsometatarsal amputation of left foot, hysterectomy, multiple right knee surgeries and right ankle surgery Social history: Denies smoking, alcohol, marijuana, other illicit drug abuse Review of Systems Review of Systems Systems Reviewed: All systems reviewed, normal except as documented Past Medical History Past Medical History NEUROLOGIC: Positive Neurological Disorders, Cerebrovascular Accident, Transient Ischemic Attacks (TIA) and Seizures CARDIAC: Positive Cardiac Disorders, Myocardial Infarction, Angina, Atherosclerotic Heart Disease, Hypercholesterolemia, Edema and Hypertension; Negative Coronary Artery Disease or Congestive Heart Failure RESPIRATORY: Positive Asthma; Negative Chronic Obstructive Pulmonary Disease (COPD) GASTROINTESTINAL: Positive Gastrointestinal Disorders, Gastroesophageal Reflux Disease and Obesity GENITOURINARY: Negative Genitourinary Disorders or Renal Disease MUSCULOSKELETAL: Positive Musculoskeletal Disorders, Arthritis, Degenerative Joint Disease and Osteomyelitis ENDOCRINE: Positive Endocrine Disorders and Diabetes Mellitus Type 2; Negative Diabetes Mellitus Type 1 HEMATOLOGIC: Negative Blood Disorders PSYCHO/SOCIAL: Positive Depression OTHER HISTORY: Positive Hospitalization, Falls, Blood Transfusions, Chemotherapy and Cancer; Negative Blood Transfusion Reaction, Anesthesia Reactions, Organ Transplant, Radiation Therapy, Hyperbaric Therapy, MRSA, Vancomycin-Resistant Enterococci or Measles Family History FAMILY HISTORY: Positive Family Respiratory Disorders, Family Cardiac Disorders, Family Cancer and Family Surgery; Negative Family Gastrointestinal Problems or Family Anesthesia Reaction Surgical History SURGICAL: Positive Cardiac Surgery, Coronary Artery Bypass Graft, Coronary Stent, Joint Replacement and Hysterectomy; Negative Organ Transplant Social History SMOKING STATUS: Never smoker SECOND HAND EXPOSURE: No SUBSTANCE USE: does not use Exam Vital Signs Temp Pulse Resp BP Pulse Ox O2 Del Method 94.8 F L 74 18 143/92 H 98 Room Air 12/03/24 22:59 12/03/24 22:59 12/03/24 22:59 12/03/24 22:59 12/03/24 22:59 12/03/24 22:59 Narrative Exam General: Awake and fragile. HEENT: Normocephalic, atraumatic, mucous membranes moist. Heart: Regular rate and rhythm, no murmurs. Lungs: Clear to auscultation with no wheezing or crackles. Abdomen: Soft, nondistended, nontender, positive bowel sounds. ?No guarding or rebound tenderness. Neurologic: Alert and oriented x3, no gross neurological deficit, and patient able to move all 4 extremities. Extremities: Noted left tarsometatarsal amputation, gangrene of second toe with erythema. Noted scar on left upper extremity extending from axilla to the arm. Noted scar on right knee and right ankle from previous surgical incisions Skin: Multiple erythematous, 1 to 2 mm lesions with erosions noted throughout the body Results: Labs 12/03/24 16:10 12/03/24 16:10 Labs: Short CBC 12/03/24 Range/Units 16:10 WBC 7.9 (3.6-11.0) Thou/mm3 Hgb 11.5 L (12.0-16.0) g/dL Hct 33.0 L (36.0-46.0) % Plt Count 215 (140-440) Thou/mm3 BMP 12/03/24 16:10 Sodium 141 Potassium 3.9 Chloride 103 Carbon Dioxide 28.2 BUN 20 Creatinine 0.6 Glucose 311 H Calcium 8.5 Liver Function 12/03/24 Range/Units 16:10 Total Bilirubin 0.4 (0.3-1.2) mg/dL AST 27 (0-34) U/L ALT 27 (10-49) U/L Alkaline Phosphatase 130 H (46-116) U/L Albumin 3.4 (3.4-4.8) gm/dL Quality Measures Quality Measures none Advance care planning discussed with:: patient Medications Home Medications and Allergies Home Medications ?Medication ?Instructions ?Recorded ?Confirmed ?Type clopidogrel 75 mg tablet (Plavix) 75 mg PO QDAY 10/31/19 04/23/21 History isosorbide mononitrate 60 mg 60 mg PO QDAY 10/31/19 04/23/21 History tablet,extended release 24 hr atorvastatin 20 mg tablet 20 mg PO HS 07/23/20 04/23/21 History aspirin 81 mg tablet,delayed 81 mg PO QAM 04/23/21 04/23/21 History release Allergies Allergy/AdvReac Type Severity Reaction Status Date / Time lettuce Allergy Severe SWELLING Verified 12/03/24 14:18 Penicillins Allergy Severe HIVES AND Verified 12/03/24 14:18 RESPIRATORY PROBLEMS shellfish derived Allergy Severe Rash Verified 12/03/24 14:18 adhesive Allergy Mild Blister Verified 12/03/24 14:18 iodine Allergy Mild RASH AND Verified 12/03/24 14:18 BLISTERS jaramillo pepper (green pepper) Allergy Unknown RASH, Verified 12/03/24 14:18 SWELLING, SORE TONGUE egg Allergy Unknown RASH Verified 12/03/24 14:18 Visit Medications Acetaminophen (Acetaminophen 325 Mg Tablet) 650 mg PO Q6H PRN PRN Reason: Fever >101.5 Stop: 01/02/25 21:04 Dextrose (Dextrose 50%-Water Inj 50 Ml Syringe) 25 ml IV Q15MIN PRN PRN Reason: BG 50-70 responsive npo pt Stop: 01/02/25 21:09 Dextrose (Dextrose 50%-Water Inj 50 Ml Syringe) 50 ml IV Q15MIN PRN PRN Reason: BG <50 OR BG <70 & pt unresponsive Stop: 01/02/25 21:09 Glucagon (Glucagon Inj 1 Mg Vial) 1 mg IM Q15MIN PRN PRN Reason: BG <70, and no IV access Ceftriaxone Sodium/Dextrose (Rocephin/D5w 1gm Iv Premix) 1 gm in 50 mls @ 100 mls/hr IV QDAY [facility] Stop: 12/10/24 22:07 Last Infusion: 12/04/24 00:18 Dose: Infused Insulin Glargine (Insulin Glargine (Lantus) 5 Unit/0.05 Ml (Per 5 Units)) 10 unit SC [facility] Stop: 01/03/25 20:59 Insulin Human Lispro (Insulin Lispro (Admelog) 1 Unit/0.01 Ml Unit) 0 unit SC AC [facility]; Protocol Stop: 01/03/25 07:29 Ondansetron HCl (Ondansetron Inj 2 Mg/Ml Inj 2 Ml) 4 mg IVP Q6H PRN; Protocol PRN Reason: NAUSEA OR VOMITING Stop: 01/02/25 21:04 Pantoprazole Sodium (Pantoprazole Inj 40 Mg Vial) 40 mg IVP QDAY [facility] Stop: 01/03/25 08:59 Pharmacy Consult (Vancomycin Pharmacy To Dose 1 Each Each) 1 each IV QDAY [facility] Stop: 01/03/25 08:59 Discontinued Medications Clindamycin/Sodium Chloride (Cleocin/Ns Ivpb) 600 mg in 50 mls @ 100 mls/hr IV X1 ONE Stop: 12/03/24 18:28 Last Infusion: 12/03/24 21:38 Dose: Infused Vancomycin HCl 1,000 mg/ (Sodium Chloride) 250 mls @ 150 mls/hr IV X1 ONE Stop: 12/03/24 23:47 Permethrin (Permethrin Cr 5% 60 Gm Tube) 0 gm TOP X1 ONE Stop: 12/03/24 22:12 Assessment & Plan Plan A 68-year-old female with significant past medical history of diabetes mellitus, hypertension, hyperlipidemia, Asthma, CAD status post CABG, CVA, seizure disorder, ?osteomyelitis, left diabetic foot s/p amputation presented to the hospital with chief complaints of pain in the right foot since 2 days and admitted in the hospital for diabetic foot, gangrene and osteomyelitis of right foot # Osteomyelitis of right foot # Diabetic foot, gangrene -Presented to the hospital with chief complaints of blackish discoloration of right foot - Denies fever, other associated symptoms - Reported that she had previous history of osteomyelitis for which she underwent left foot amputation - Labs at the time of admission are significant for elevated CRP, 4 and glucose 311 - X-ray right foot showed osteomyelitis of distal fourth metatarsal and proximal phalanx fourth digit. Plan - General Surgeon Dr. Miranda was consulted in view of diabetic foot and he recommended amputation of right toe on 12/04/2024 - N.p.o. since midnight - Started on ceftriaxone and vancomycin in view of osteomyelitis [12/04- - Bilateral lower extremity arterial Doppler is ordered to look for PAD # Diabetes mellitus, type II - Patient is using oral medications at home - A1c is 6.8 in 2023 Plan - Insulin sliding scale is ordered - Started on insulin glargine 6 units at bedtime, titrate as needed - Hypoglycemia protocol in place # History of hypertension - Patient does not remember the name of the medications - Will monitor blood pressures for now and add medications as needed # History of CAD s/p CABG # History of CVA - Patient is scheduled for right foot second toe amputation tomorrow - Will hold antiplatelets for now - Medication reconciliation is ordered and recommended to resume medications # History of seizures - Patient is using levetiracetam thousand Mg p.o. twice daily at home - Medication reconciliation is ordered - Started on levetiracetam thousand Mg p.o. twice daily # History of asthma - Patient reported that she had history of asthma, currently stable Hospital Maintenance: Dispo: Telemetry DVT ppx: SCD GI ppx: Protonix Diet: N.p.o. since midnight IV lines: Peripheral Code status: Full code Patient plan of care was discussed with the attending physician, Dr. Delia Kennedy, PGY1 Attending Provider Attestation/Addendum I have examined the patient, reviewed labs and imaging findings, discussed the case with the resident(s), and reviewed entered orders. I agree with the plan of care as outlined in this note, with these additional summaries/recommendations: After examination of the patient and review of the clinical data, I feel that this patient needs admission to the hospital for further treatment and evaluation. Patient is a 69-year-old female with a medical history of seizure disorder, CVA, primary hypertension, hyperlipidemia, diabetes mellitus type 2, CAD with stents and status post CABG, and transmetatarsal amputation of the left foot who presented to [facility] emergency department with chief complaint of right foot pain, swelling, and discoloration. Patient seen at bedside. Patient's right foot examined which reveals dry gangrene of right second toe with cellulitis surrounding. Right foot x-ray was also obtained which reveals osteomyelitis of distal fourth metatarsal and proximal phalanx fourth digit. CRP 4.0. Patient diagnosed with dry gangrene, cellulitis, and osteomyelitis of right foot. General surgery consulted with plans for amputation of the second toe. Consult wound care. Start IV Rocephin and vancomycin. Blood cultures taken and follow-up results when available. Start pain management and Tylenol as needed for fever. Patient has history of CAD status post CABG and history of CVA. We will hold aspirin and Plavix today given surgical interventions planned. Okay to continue statin. Patient has moderate aortic stenosis and can follow-up outpatient. Start insulin sliding scale for diabetes mellitus type 2 with Accu-Cheks. Target blood sugar of 140-180 while hospitalized. Continue home Keppra for history of seizure disorder. Awaiting home medication reconciliation and will resume home antihypertensives when able. Patient also appears to have full upper body scabies. Placed patient on contact precautions and start permethrin topical cream. Patient updated on the plan and in agreement. All questions answered to satisfaction. Please see residents note for additional details of management. Dr. Delia MD
[2024-12-04] MEDS: Vancomycin Inj 1,000 MG in SODIUM CHLORIDE 0.9% 250 ML 250 ML 150 MG IV (00:33)
--- NOTE | 2024-12-04 00:39 | XR_ITS ---
Examination: Arterial duplex lower extremity study. Date and time of exam: December 04, 2024 0328 hours INDICATIONS: Redness swelling and pain involving the right foot 3 weeks, cortical bone destruction distal fourth metatarsal and proximal phalanx fourth digit on plain films of the foot December 03, 2024 Findings: Duplex sonographic imaging of the lower extremity arteries using B-mode/Arora scale imaging and Doppler spectral analysis and color flow. Right common femoral artery demonstrates monophasic flow. Right superficial femoral artery demonstrates monophasic flow. Right popliteal artery demonstrates no flow. Right posterior tibial artery demonstrated monophasic flow. Left common femoral artery demonstrates biphasic flow. Left superficial femoral artery demonstrates monophasic flow. Left popliteal artery demonstrates monophasic flow. Left posterior tibial artery demonstrated monophasic flow. Impression: Severe peripheral obstructive arterial disease Consider correlation with CTA abdominal aorta iliofemoral runoff post intravenous contrast
--- NOTE | 2024-12-04 00:50 | PC.NURSE ---
pericare provided. brief change and purewick put in place. assisted pt with repositioning. turned to left side
--- NOTE | 2024-12-04 01:18 | PC.NURSE ---
Report given to floor nurse Sebastian
[2024-12-04 06:29] LABS: Basophils # (Auto) 0.1 Thou/mm3 (0.0-0.2); Basophils % (Auto) 1 % (0-2.5); Eosinophils # (Auto) 0.2 Thou/mm3 (0.0-0.5); Eosinophils % (Auto) 3 % (0-10); Hematocrit 30.7 % (36.0-46.0); Hemoglobin 10.7 g/dL (12.0-16.0); Immature Granulocytes % (Auto) 0 % (0-0); Immature Granulocytes Auto 0.02 Thou/mm3 (0.00-0.00); Lymphocytes # (Auto) 1.4 Thou/mm3 (1.0-4.8); Lymphocytes % (Auto) 18 % (10-50); Mean Corpuscular HGB Conc 34.9 g/dl (31.0-37.0); Mean Corpuscular Volume 83 fL (80-100); Monocytes # (Auto) 0.6 Thou/mm3 (0.0-0.8); Monocytes % (Auto) 8 % (0-12); Neutrophils # (Auto) 5.1 Thou/mm3 (1.8-7.7); Neutrophils % (Auto) 70 % (37-80); Nucleated Red Blood Cell % 0 /100 WBC (0); Platelet Count 211 Thou/mm3 (140-440); RDW Standard Deviation 42.9 fL (36.4-46.3); Red Blood Count 3.69 Miln/mm3 (4.00-5.20); White Blood Count 7.3 Thou/mm3 (3.6-11.0)
[2024-12-04 06:46] LABS: Alanine Aminotransferase 23 U/L (10-49); Albumin, Serum 3.3 gm/dL (3.4-4.8); Anion Gap 8 (7-16); Aspartate Amino Transferase 18 U/L (0-34); BUN/Creatinine Ratio 34 Ratio (12-20); Bilirubin,Total 0.3 mg/dL (0.3-1.2); Blood Urea Nitrogen 17 mg/dL (9-23); Calcium 8.6 mg/dL (8.3-10.6); Calcium (Corrected) 9.2 mg/dL (8.5-10.1); Carbon Dioxide 28.9 mMol/L (20.0-31.0); Chloride 105 mMol/L (98-107); Creatinine (Component) 0.5 mg/dL (0.6-1.3); Estimated Creatinine Clearance 100.4 mL/min (>60); Glucose 180 mg/dL (74-106); Osmolality,Calculated 289 (275-295); Potassium 4.3 mMol/L (3.4-5.1); Sodium 142 mMol/L (136-145); Total Protein 5.5 gm/dL (5.7-8.2); eGFR > 60 See Note
[2024-12-04 06:47] LABS: Albumin/Globulin Ratio 1.5 (1.2-2.2); Alkaline Phosphatase 116 U/L (46-116); Cardiac Risk Estimate 3.5 RATIO (3.7-5.6); Cholesterol 154 mg/dL (132-200); Globulin 2.2 gm/dL (2.3-3.5); HDL Cholesterol 44 mg/dL (40-60); LDL Cholesterol,Calculated 89 mg/dL (0-130); Thyroid Stimulating Hormone 1.99 uIU/mL (0.55-4.78); Triglycerides 104 mg/dL (30-150)
[2024-12-04 06:57] LABS: Glucose Estimated Average 160 mg/dL (80-131); Hemoglobin A1C 7.2 % Hgb (4.8-6.0)
--- NOTE | 2024-12-04 10:26 | SUR.PHASEI ---
1026: Pt. AAOx4, vitals stable, breathing unlabored, no complaint of pain or nausea, bilateral posterior tibial pulses strong and regular, bilateral legs do have slight edema which is her baseline, skin tear on chest prior to OR, dressing to right foot CDI, no active bleed noted, report received from Christiano LAZARO and MD Chavez.
[2024-12-04 10:33] LABS: Sed Rate (ESR) 35 mm/hr (0-30)
--- NOTE | 2024-12-04 10:56 | SUR.PHASEI ---
1056: Pt. AAOx4, vitals stable, breathing unlabored, no complaint of pain or nausea, dressing to right foot CDI, no active bleed noted, pt. able to move bilateral legs, bilateral posterior tibial pulses strong and regular, gave report to Duyen LAZARO prior to transfer to room.
--- NOTE | 2024-12-04 11:05 | ESOP_ITS ---
Date of Procedure 12/04/24 Pre Op Diagnosis Gangrene right second toe and abscess right big toe Post Op Diagnosis Same Procedure Drainage of the abscess right big toe and amputation of the right second toe at the metatarsophalangeal level Findings Patient is found to have infected foot both in the second toe and great toe and therefore surgical procedure was indicated Procedure Description After the patient was brought to the operating room regional block was given by the anesthesiologist. Then right foot was washed with ChloraPrep solution and draped in a sterile manner. Timeout was performed. I first approached his right big toe by excising the upper portion of the necrotic tissue which did not underneath had purulent tissue. It was cultured promptly. Then washed with saline solution. Then I made a elliptical incision over the base of the right second toe they removed the entire second toe up to the metatarsophalangeal j oint. Because of purulent material seen even on this toe I left the wound open and packed it with 2 x 2 gauze. Dressing was applied with 4 x 4 gauze and Emerson roll Anesthesia regional Pathology / specimen Other (Amputated second toe) Estimated Blood Loss 5 Surgeon Destiny Chapin MD Surgical Staff Operation Date: 12/04/24 09:15 Case Staff Anesthesiologist: Perez Chavez
--- NOTE | 2024-12-04 11:08 | PC.SS ---
NICU RN conducted bedside contact with the patient to conduct initial assessment and to discuss discharge planning.? Patient confirmed demographic information.? Patient resides at home with son, Jorge Comer .? Patient utilizes a wheelchair to assist with mobility.? Patient does not utilize home oxygen.? Patient requires assistance with the completion of ADL?s.? Patient?s son provides assistance to the patient.? Patient?s PCP is Renu Perkins.? Patient utilizes [facility] for medication services.? Plan is for the patient to return home at the time of discharge.? Patient declined SNF placement.? Patient receptive to home health services upon transition home.? No preferred provider identified.? Family will provide transportation on behalf of the patient. ?No further discharge needs identified by the patient.? No further intervention required at this time, drug abuse social worker will be available to address any further concerns.? Next of Kin: Jorge Comer D/C Plan: Home
[2024-12-04] MEDS: PANTOPRAZOLE INJ 40 MG VIAL IVP (11:24)
[2024-12-04] MEDS: levETIRAcetam 250 MG TABLET 1000 MG PO ×2 (11:24→21:23)
[2024-12-04] MEDS: cefTRIAXone/D5w 2gm 2 GM/50 ML BAG IV (11:25)
[2024-12-04] MEDS: VANCOMYCIN/D5W 1,250 MG IVPB 250 ML 120 MG IV ×2 (11:58→21:37)
--- NOTE | 2024-12-04 13:33 | ESPR_ITS ---
<Statement entered by Sathish Duffy MD - 12/05/24 07:26> I discussed with and supervised the buyer internship physician involved in the care of this patient. Patient assessment and plan was discussed with entire medicine team, including my attending. I agree with the assessment and plan as documented by buyer internship doctor. Patient care was discussed with my attending physician Dr.Bishwakarma Sathish Duffy, PGY-2 Documentation for date of: 12/04/24 Subjective Subjective Interval history: Patient was seen and examined by the bedside. No acute overnight events. Patient reports being hungry, itchiness all over the body, mild pain in the right foot. She underwent right 2nd toe amputation and necrotic tissue excision of the big toe. Cultures were sampled during the operation. Blood cultures pending. Previous cultures grew MRSA, will continue with Vancomycin. ID specialist was consulted. Exam Vital Signs Temp Pulse Resp BP Pulse Ox O2 Del Method 97.5 F 88 20 119/67 99 Room Air 12/04/24 10:50 12/04/24 10:50 12/04/24 10:50 12/04/24 10:50 12/04/24 10:50 12/04/24 07:55 Narrative Exam Gen: Well-developed and well-nourished. HEENT: NCAT, PERRLA, EOMI, MMM, anicteric conjunctivae. CVS: normal S1 and S2. RRR. Systolic 3/6 murmur in the right 2nd intercostal area. Resp: CTA B/L. No rhonchi, rales, crackles or wheezing. Abd: soft, non-tender, non-distended. BS+ in all 4 quadrants. MSK: Left metatarsal amputation, partial necrosis of big toe, gangrene of second toe with erythema. Scar on left upper extremity extending from axilla to the arm. Scar on right knee and right ankle. Multiple excoriations, interdigital scaly rash. Neuro: CN II-XII grossly intact. Strength 5/5 in BUE & BLE. Alert. Psych: appropriate mood and affect. Objective Labs 12/04/24 05:54 12/04/24 05:54 Labs: Laboratory Results - last 24 hr 12/03/24 12/04/24 16:10 05:54 WBC 7.9 7.3 RBC 3.94 L 3.69 L Hgb 11.5 L 10.7 L Hct 33.0 L 30.7 L MCV 84 83 MCH 29.2 29.0 MCHC 34.8 34.9 RDW Std Deviation 44.4 42.9 Plt Count 215 211 Neut % (Auto) 75 70 Lymph % (Auto) 15 18 [place] % (Auto) 6 8 Eos % (Auto) 3 3 Baso % (Auto) 1 1 Neut # (Auto) 6.0 5.1 Lymph # (Auto) 1.2 1.4 [place] # (Auto) 0.5 0.6 Eos # (Auto) 0.2 0.2 Baso # (Auto) 0.1 0.1 Immature Gran # (Auto) 0.01 H 0.02 H Absolute Nucleated RBC 0.00 0.00 Immature Gran % 0 0 Nucleated RBC % 0 0 ESR 35 H Sodium 141 142 Potassium 3.9 4.3 Chloride 103 105 Carbon Dioxide 28.2 28.9 Anion Gap 10 8 BUN 20 17 Creatinine 0.6 0.5 L Estim Creat Clear Calc 83.6 100.4 eGFR > 60 > 60 BUN/Creatinine Ratio 33 H 34 H Glucose [address] Glu mg/dL 160 H Hemoglobin A1c 7.2 H Calculated Osmolality 295 289 Lactic Acid 1.0 Calcium 8.5 8.6 Corrected Calcium 9.0 9.2 Total Bilirubin 0.4 0.3 AST 27 18 ALT 27 23 Alkaline Phosphatase 130 H 116 C-Reactive Prot, Quant 4.0 H Total Protein 5.8 5.5 L Albumin 3.4 3.3 L Globulin 2.4 2.2 L Albumin/Globulin Ratio 1.4 1.5 Triglycerides 104 Cholesterol 154 LDL Cholesterol, Calc 89 HDL Cholesterol 44 Cholesterol/HDL Ratio 3.5 L Procalcitonin 0.06 TSH 1.99 Quality Measures Quality Measures VTE prophylaxis Advance care planning discussed with:: other Assessment & Plan Assessment Current Active Medications: Generic Name Dose Route Start Last Admin Trade Name Freq PRN Reason Stop Dose Admin Acetaminophen 650 mg 12/04/24 10:30 Acetaminophen 325 Mg Tablet PO 01/02/25 21:04 Q6H PRN Fever >100.3 Atorvastatin Calcium 40 mg 12/04/24 21:00 Atorvastatin Calcium 20 Mg Tablet PO 01/03/25 20:59 HS HARPER Dextrose 25 ml 12/03/24 21:10 Dextrose 50%-Water Inj 50 Ml Syringe IV 01/02/25 21:09 Q15MIN PRN BG 50-70 responsive npo pt Dextrose 50 ml 12/03/24 21:10 Dextrose 50%-Water Inj 50 Ml Syringe IV 01/02/25 21:09 Q15MIN PRN BG <50 OR BG <70 & pt unresponsive Glucagon 1 mg 12/03/24 21:10 Glucagon Inj 1 Mg Vial IM Q15MIN PRN BG <70, and no IV access Vancomycin HCl/Dextrose 250 mls @ 120 mls/hr 12/04/24 10:00 12/04/24 11:58 Vancomycin/D5w 1,250 Mg Ivpb IV 12/11/24 09:59 120 mls/hr Q12H HARPER Administration Ceftriaxone Sodium/Dextrose 2 gm in 50 mls @ 100 mls/hr 12/04/24 09:00 12/04/24 11:25 Rocephin/D5w 2gm IV 12/11/24 06:24 100 mls/hr QDAY HARPER Administration Insulin Glargine 6 unit 12/04/24 21:00 Insulin Glargine (Lantus) 5 Unit/0.05 Ml (Per 5 Units) SC 01/03/25 20:59 HS COUNTS INCLUDE 234 BEDS AT THE [facility] Insulin Human Lispro 0 unit 12/04/24 17:00 Insulin Lispro (Admelog) 1 Unit/0.01 Ml Unit SC 01/03/25 16:59 ACHS COUNTS INCLUDE 234 BEDS AT THE [facility] Protocol Levetiracetam 1,000 mg 12/04/24 09:00 12/04/24 11:24 Levetiracetam 250 Mg Tablet PO 01/03/25 08:59 1,000 mg BID HARPER Administration Ondansetron HCl 4 mg 12/03/24 21:05 Ondansetron Inj 2 Mg/Ml Inj 2 Ml IVP 01/02/25 21:04 Q6H PRN NAUSEA OR VOMITING Protocol Pantoprazole Sodium 40 mg 12/04/24 09:00 12/04/24 11:24 Pantoprazole Inj 40 Mg Vial IVP 01/03/25 08:59 40 mg QDAY HARPER Administration Permethrin 0 gm 12/04/24 12:30 Permethrin Cr 5% 60 Gm Tube TOP 01/03/25 12:29 [facility] Pharmacy Consult 1 each 12/04/24 09:00 Vancomycin Pharmacy To Dose 1 Each Each IV 01/03/25 08:59 QDAY PRN CONSULT Plan A 68-year-old female with significant past medical history of diabetes mellitus, hypertension, hyperlipidemia, Asthma, CAD status post CABG, CVA, seizure disorder, ?osteomyelitis, left diabetic foot s/p amputation presented to the hospital with chief complaints of pain in the right foot since 2 days and admitted in the hospital for diabetic foot, gangrene and osteomyelitis of right foot #Osteomyelitis of right distal and proximal phalanx of IVth foot digit #IInd toe gangrene #Ist toe partial necrosis #Diabetic foot infection Presented to the hospital with chief complaints of blackish discoloration of right foot Denies fever, other associated symptoms Reported that she had previous history of osteomyelitis for which she underwent left foot amputation Labs at the time of admission are significant for elevated CRP, 4 and glucose 311 X-ray right foot showed osteomyelitis of distal fourth metatarsal and proximal phalanx fourth digit. 12/04/24: patient underwent 2nd toe amputaion and big toe necrotic tissue excision. Plan: - ID specialist was consulted - Ceftriaxone and vancomycin [12/04-current] #PAD LE Dopper showed severe PAD which is contributing to the foot infection. Plan: - atorvastatin 40 mg qday #Diabetes mellitus, type II Patient is using oral medications at home A1c is 6.8 in 12/04: A1c 7.2% Plan: - Insulin sliding scale - Glargine 6 units at bedtime - Hypoglycemia protocol in place #History of hypertension Patient does not remember the name of the medications Plan: - Will monitor blood pressures for now and add medications as needed #History of CAD s/p CABG #History of CVA Plan: - Will hold antiplatelets for now, will resume according to surgery recs - Medication reconciliation #History of seizures Plan: - Medication reconciliation is ordered -Levetiracetam 1000 mg p.o. twice daily #History of asthma Patient reported that she had history of asthma, currently stable Plan: -Duoneb inhalations as needed #Skin lesion #Pruritis Patient reports feeling itchy, multiple body excoriations, interdigital rash. Denies recent antibiotics use. High suspicion for scabies. Plan: - permethrine cream on the affected areas, wash off after 8-12 hours - calamine lotion as needed for itchiness Hospital Maintenance: Dispo: Telemetry DVT ppx: SCD GI ppx: Protonix Diet: carbohydrate consistent IV lines: Peripheral Code status: Full code Plan of care discussed with attending Dr. Angeles and PGY-2 Dr. Duffy. Nila Jasmine MD, PGY 1. Attending Provider Attestation/Addendum I attest that I was physically present for the evaluation, physical examination, lab and imaging review of the patient with the residents. I discussed the case with the residents and agree with the findings and plans of care as documented above. Patient is a 69 years old female with past medical history of seizure disorder, CVA, primary hypertension, hyperlipidemia, diabetes mellitus, CAD status post stent and CABG and transmetatarsal amputation of the left foot who presented to the ED with complaint of right foot pain, swelling and discoloration. She was admitted overnight for management of osteomyelitis of right foot and diabetic foot. At bedside today, patient is states she is feeling well, her pain has been well-controlled with analgesic. Complains of itching, noted to have multiple scabs and scratch turcios. She also underwent drainage of the abscess of right big toe and amputation of the right second toe at metatarsophalangeal level with general surgery. We will start the patient on permethrin cream, discussed with pharmacy. Continues to be on IV Rocephin and vancomycin. Culture results are pending. We will obtain ID consult regarding choice and duration of antibiotic therapy. Continues to be on insulin regimen for diabetes, we will try to resume her home medications for seizure. Jake Angeles MD
--- NOTE | 2024-12-04 15:23 | PD.ANESPROG ---
Documentation for date of: 12/04/24 ANESTHESIA NOTE: Patient had regional anesthesia with R ankle block and monitored sedation for R 1-2 toe procedure this morning. Pre-op, she has h/o confusion and I spoke with her and her son on the phone. She has significant hx including hx CAD CABG and aortic stenosis. She did well intra-op and in PACU. Perez Chavez MD Anesthesia Progress Note Progress Note Most recent Vital Signs: Last Vital Signs Temp 97.2 F 12/04/24 12:00 Pulse 75 12/04/24 15:04 Resp 18 12/04/24 15:04 BP 118/63 12/04/24 12:00 Pulse Ox 99 12/04/24 12:00 O2 Del Method Room Air 12/04/24 12:00
[2024-12-04] MEDS: PERMETHRIN CR 5% 60 GM TUBE TOP (16:04)
[2024-12-04] MEDS: INSULIN LISPRO (AdmeLOG) 1 UNIT/0.01 ML UNIT SC (17:50)
[2024-12-04] MEDS: ATORVASTATIN CALCIUM 20 MG TABLET 40 MG PO (21:23)
[2024-12-04] MEDS: HYDROcodone/APAP 5/325 TABLET 1 TAB PO (22:05)
[2024-12-05] VITALS (8 sets, daily range): BP systolic 110–144; BP diastolic 61–80; PULSE 60–91; RESP 16–97; TEMP 35.9–36.7; O2SAT 96–99; BMI 19.7; BMI 19.8
[2024-12-05] MEDS: HYDROcodone/APAP 5/325 TABLET 1 TAB PO ×3 (04:00→21:11)
[2024-12-05 05:53] LABS: Basophils # (Auto) 0.1 Thou/mm3 (0.0-0.2); Basophils % (Auto) 1 % (0-2.5); Eosinophils # (Auto) 0.4 Thou/mm3 (0.0-0.5); Eosinophils % (Auto) 5 % (0-10); Hematocrit 30.1 % (36.0-46.0); Hemoglobin 10.2 g/dL (12.0-16.0); Immature Granulocytes % (Auto) 0 % (0-0); Immature Granulocytes Auto 0.02 Thou/mm3 (0.00-0.00); Lymphocytes # (Auto) 0.8 Thou/mm3 (1.0-4.8); Lymphocytes % (Auto) 11 % (10-50); Mean Corpuscular HGB Conc 33.9 g/dl (31.0-37.0); Mean Corpuscular Hemoglobin 29.3 pg (25.0-35.0); Mean Corpuscular Volume 87 fL (80-100); Monocytes # (Auto) 0.7 Thou/mm3 (0.0-0.8); Monocytes % (Auto) 9 % (0-12); Neutrophils # (Auto) 5.7 Thou/mm3 (1.8-7.7); Neutrophils % (Auto) 75 % (37-80); Nucleated Red Blood Cell % 0 /100 WBC (0); Platelet Count 192 Thou/mm3 (140-440); RDW Standard Deviation 44.8 fL (36.4-46.3); Red Blood Count 3.48 Miln/mm3 (4.00-5.20); White Blood Count 7.6 Thou/mm3 (3.6-11.0)
[2024-12-05 06:19] LABS: Alanine Aminotransferase 16 U/L (10-49); Albumin, Serum 3.1 gm/dL (3.4-4.8); Albumin/Globulin Ratio 1.5 (1.2-2.2); Alkaline Phosphatase 103 U/L (46-116); Anion Gap 8 (7-16); Aspartate Amino Transferase 12 U/L (0-34); BUN/Creatinine Ratio 36 Ratio (12-20); Bilirubin,Total 0.3 mg/dL (0.3-1.2); Blood Urea Nitrogen 18 mg/dL (9-23); Calcium 8.3 mg/dL (8.3-10.6); Carbon Dioxide 29.4 mMol/L (20.0-31.0); Chloride 106 mMol/L (98-107); Creatinine (Component) 0.5 mg/dL (0.6-1.3); Globulin 2.1 gm/dL (2.3-3.5); Glucose 189 mg/dL (74-106); Osmolality,Calculated 291 (275-295); Potassium 4.2 mMol/L (3.4-5.1); Sodium 143 mMol/L (136-145); Total Protein 5.2 gm/dL (5.7-8.2); eGFR > 60 See Note
[2024-12-05] MEDS: INSULIN LISPRO (AdmeLOG) 1 UNIT/0.01 ML UNIT SC ×4 (08:18→21:10)
[2024-12-05 08:54] LABS: Magnesium 1.6 mg/dL (1.6-2.6); Phosphorous 3.4 mg/dL (2.4-5.1)
[2024-12-05] MEDS: levETIRAcetam 250 MG TABLET 1000 MG PO ×2 (08:59→21:11)
[2024-12-05] MEDS: cefTRIAXone/D5w 2gm 2 GM/50 ML BAG IV (08:59)
[2024-12-05] MEDS: PANTOPRAZOLE INJ 40 MG VIAL IVP (08:59)
[2024-12-05] MEDS: ASPIRIN EC 81 MG TABEC PO (09:43)
[2024-12-05] MEDS: CLOPIDOGREL BISULFATE 75 MG TABLET PO (09:43)
[2024-12-05] MEDS: VANCOMYCIN/D5W 1,250 MG IVPB 250 ML 120 MG IV (10:45)
[2024-12-05] MEDS: Calamine Lotion 120 ML BTL TOP ×2 (15:05→16:01)
[2024-12-05] MEDS: HEPARIN SOD INJ 5000 UNIT/ML VIAL SC ×2 (15:40→21:10)
--- NOTE | 2024-12-05 15:41 | PC.SS ---
Rounding Note: I&D consulting. Recommendations pending. Patient to d/c home.
--- NOTE | 2024-12-05 16:11 | ESPR_ITS ---
<Statement entered by Sathish Duffy MD - 12/06/24 07:26> I discussed with and supervised the collector of internal revenue physician involved in the care of this patient. Patient assessment and plan was discussed with entire medicine team, including my attending. I agree with the assessment and plan as documented by collector of internal revenue doctor. Patient care was discussed with my attending physician Dr. Dayna Duffy, PGY-2 Documentation for date of: 12/05/24 Subjective Subjective Interval history: Patient was seen and examined by the bedside. No acute overnight events. Patient reports feeling hungry, requests another tray of food, which was ordered. Contacted her son, he reports that she is confused on a baseline after the CVA. Regarding her itching, he reports that she was recently bit by mosquito and she usually get itchy after. Pending ID recs, cultures results. Will continue with antobiotics. Exam Vital Signs Temp Pulse Resp BP Pulse Ox O2 Del Method 97.3 F 60 18 133/67 H 99 Room Air 12/05/24 12:00 12/05/24 12:00 12/05/24 12:00 12/05/24 12:00 12/05/24 08:00 12/05/24 08:00 Narrative Exam Gen: Well-developed and well-nourished. HEENT: NCAT, PERRLA, EOMI, MMM, anicteric conjunctivae. CVS: normal S1 and S2. RRR. Systolic 3/6 murmur in the right 2nd intercostal area. Resp: CTA B/L. No rhonchi, rales, crackles or wheezing. Abd: soft, non-tender, non-distended. BS+ in all 4 quadrants. MSK: Left metatarsal amputation, partial necrosis of big toe, gangrene of second toe with erythema. Scar on left upper extremity extending from axilla to the arm. Scar on right knee and right ankle. Multiple excoriations, interdigital scaly rash. Neuro: CN II-XII grossly intact. Strength 5/5 in BUE & BLE. Alert and oriented x2. Psych: appropriate mood and affect. Objective Labs 12/06/24 05:38 12/06/24 05:38 Labs: Laboratory Results - last 24 hr 12/05/24 12/05/24 04:36 10:33 WBC 7.6 RBC 3.48 L Hgb 10.2 L Hct 30.1 L MCV 87 MCH 29.3 MCHC 33.9 RDW Std Deviation 44.8 Plt Count 192 Neut % (Auto) 75 Lymph % (Auto) 11 [place] % (Auto) 9 Eos % (Auto) 5 Baso % (Auto) 1 Neut # (Auto) 5.7 Lymph # (Auto) 0.8 L [place] # (Auto) 0.7 Eos # (Auto) 0.4 Baso # (Auto) 0.1 Immature Gran # (Auto) 0.02 H Absolute Nucleated RBC 0.00 Immature Gran % 0 Nucleated RBC % 0 Sodium 143 Potassium 4.2 Chloride 106 Carbon Dioxide 29.4 Anion Gap 8 BUN 18 Creatinine 0.5 L Estim Creat Clear Calc 93.0 eGFR > 60 BUN/Creatinine Ratio 36 H Glucose 189 H Calculated Osmolality 291 Calcium 8.3 Corrected Calcium 9.0 Phosphorus 3.4 Magnesium 1.6 Total Bilirubin 0.3 AST 12 ALT 16 Alkaline Phosphatase 103 Total Protein 5.2 L Albumin 3.1 L Globulin 2.1 L Albumin/Globulin Ratio 1.5 Vancomycin Trough 16.0 H Quality Measures Quality Measures VTE prophylaxis Advance care planning discussed with:: other Assessment & Plan Assessment Current Active Medications: Generic Name Dose Route Start Last Admin Trade Name Freq PRN Reason Stop Dose Admin Acetaminophen 650 mg 12/04/24 16:34 Acetaminophen 325 Mg Tablet PO 01/02/25 21:04 Q6H PRN Fever >100.3 or pain 1-3 Hydrocodone Bitart/Acetaminophen 1 tab 12/05/24 03:52 12/05/24 11:48 Hydrocodone/Apap 5/325 Tablet PO 12/09/24 16:32 1 tab Q6HR PRN Administration Pain 4-10 Albuterol/Ipratropium 3 ml 12/04/24 14:11 Albuterol/Ipratropium (Duoneb) Rt Mere 3 Ml Nebu INH 01/03/25 14:10 Q2HR PRN SHORTNESS OF BREATH OR WHEEZE Aspirin 81 mg 12/05/24 09:15 12/05/24 09:43 Aspirin Ec 81 Mg Tabec PO 01/04/25 09:14 81 mg QDAY HARPER Administration Atorvastatin Calcium 40 mg 12/04/24 21:00 12/04/24 21:23 Atorvastatin Calcium 20 Mg Tablet PO 01/03/25 20:59 40 mg HS HARPER Administration Calamine 0 ml 12/05/24 14:45 Calamine Lotion 120 Ml Btl TOP 01/04/25 14:44 QDAY HARPER Clopidogrel Bisulfate 75 mg 12/05/24 09:30 12/05/24 09:43 Clopidogrel Bisulfate 75 Mg Tablet PO 01/04/25 09:29 75 mg QDAY HARPER Administration Dextrose 25 ml 12/03/24 21:10 Dextrose 50%-Water Inj 50 Ml Syringe IV 01/02/25 21:09 Q15MIN PRN BG 50-70 responsive npo pt Dextrose 50 ml 12/03/24 21:10 Dextrose 50%-Water Inj 50 Ml Syringe IV 01/02/25 21:09 Q15MIN PRN BG <50 OR BG <70 & pt unresponsive Glucagon 1 mg 12/03/24 21:10 Glucagon Inj 1 Mg Vial IM Q15MIN PRN BG <70, and no IV access Heparin Sodium (Porcine) 5,000 unit 12/05/24 14:00 12/05/24 15:40 Heparin Sod Inj 5000 Unit/Ml Vial SC 12/19/24 13:59 5,000 unit Q8HR HARPER Administration Ceftriaxone Sodium/Dextrose 2 gm in 50 mls @ 100 mls/hr 12/04/24 09:00 12/05/24 08:59 Rocephin/D5w 2gm IV 12/11/24 06:24 100 mls/hr QDAY HARPER Administration Vancomycin HCl 250 mls @ 120 mls/hr 12/05/24 22:00 Vancomycin/Water 1250 Mg Ivpb IV 12/12/24 21:59 Q12H HARPER Insulin Glargine 6 unit 12/04/24 21:00 12/04/24 21:10 Insulin Glargine (Lantus) 5 Unit/0.05 Ml (Per 5 Units) SC 01/03/25 20:59 Not Given HS HARPER Insulin Human Lispro 0 unit 12/04/24 17:00 12/05/24 11:55 Insulin Lispro (Admelog) 1 Unit/0.01 Ml Unit SC 01/03/25 16:59 4 unit ACHS HARPER Administration Protocol Levetiracetam 1,000 mg 12/04/24 09:00 12/05/24 08:59 Levetiracetam 250 Mg Tablet PO 01/03/25 08:59 1,000 mg BID HARPER Administration Ondansetron HCl 4 mg 12/03/24 21:05 Ondansetron Inj 2 Mg/Ml Inj 2 Ml IVP 01/02/25 21:04 Q6H PRN NAUSEA OR VOMITING Protocol Pantoprazole Sodium 40 mg 12/04/24 09:00 12/05/24 08:59 Pantoprazole Inj 40 Mg Vial IVP 01/03/25 08:59 40 mg QDAY HARPER Administration Permethrin 0 gm 12/04/24 12:30 12/04/24 16:04 Permethrin Cr 5% 60 Gm Tube TOP 01/03/25 12:29 1 applicatio UD HARPER Administration Pharmacy Consult 1 each 12/04/24 09:00 Vancomycin Pharmacy To Dose 1 Each Each IV 01/03/25 08:59 QDAY PRN CONSULT Plan A 68-year-old female with significant past medical history of diabetes mellitus, hypertension, hyperlipidemia, Asthma, CAD status post CABG, CVA, seizure disorder, ?osteomyelitis, left diabetic foot s/p amputation presented to the hospital with chief complaints of pain in the right foot since 2 days and admitted in the hospital for diabetic foot, gangrene and osteomyelitis of right foot #Osteomyelitis of right distal and proximal phalanx of IVth foot digit #IInd toe gangrene #Ist toe partial necrosis #Diabetic foot infection Presented to the hospital with chief complaints of blackish discoloration of right foot Denies fever, other associated symptoms Reported that she had previous history of osteomyelitis for which she underwent left foot amputation Labs at the time of admission are significant for elevated CRP, 4 and glucose 311 X-ray right foot showed osteomyelitis of distal fourth metatarsal and proximal phalanx fourth digit. 12/04/24: patient underwent 2nd toe amputaion and big toe necrotic tissue excision. Plan: - ID specialist was consulted - Ceftriaxone and vancomycin [12/04-current] - pending wound cultures - blood cultures negative after 48 hours #PAD LE Dopper showed severe PAD which is contributing to the foot infection. Plan: - atorvastatin 40 mg qday #Diabetes mellitus, type II Patient is using oral medications at home A1c is 6.8 in 12/04: A1c 7.2% Plan: - Insulin sliding scale - Glargine 6 units at bedtime - Hypoglycemia protocol in place #History of hypertension Patient does not remember the name of the medications Plan: - Will monitor blood pressures for now and add medications as needed #History of CAD s/p CABG #History of CVA Plan: - resumed aspirin 81 mg qday - resumed plavix 75 mg qday - Medication reconciliation #History of seizures Plan: - Medication reconciliation is ordered -Levetiracetam 1000 mg p.o. twice daily #History of asthma Patient reported that she had history of asthma, currently stable Plan: -Duoneb inhalations as needed #Skin lesion #Pruritis Patient reports feeling itchy, multiple body excoriations, interdigital rash. Denies recent antibiotics use. High suspicion for scabies. According to son, she usually has pruritus after mosquito bites. Son denies itchiness of other home residents. Plan: - calamine lotion as needed for itchiness Hospital Maintenance: Dispo: Telemetry DVT ppx: heparin 5000 U sc q8hr GI ppx: Protonix Diet: carbohydrate consistent IV lines: Peripheral Code status: Full code Plan of care discussed with attending Dr. Mcintosh and PGY-2 Dr. Duffy. Nila Jasmine MD, PGY 1. Attending Provider Attestation/Addendum I have discussed and was present for the essential components of the history, physical examination, diagnosis, and treatment plan with the resident. I agree with the patient's care as documented by the resident and amended herein by me. Jamir Mcintosh DO. Although this document has been carefully reviewed, there may still be some phonetic and other typographical errors. These errors are purely grammatical due to imperfections in the software program and should not be construed in any way to compromise the substance of the patient's medical care during this visit.
[2024-12-05] MEDS: INSULIN GLARGINE (Lantus) 5 UNIT/0.05 ML (PER 5 UNITS) 6 UNIT SC (21:10)
[2024-12-05] MEDS: ATORVASTATIN CALCIUM 20 MG TABLET 40 MG PO (21:11)
[2024-12-05] MEDS: VANCOMYCIN/WATER 1250 MG IVPB 250 ML 120 MG IV (21:30)
[2024-12-06] VITALS (8 sets, daily range): BP systolic 118–162; BP diastolic 64–77; PULSE 58–79; RESP 10–99; TEMP 35.9–36.4; O2SAT 96–99; BMI 20.8
[2024-12-06] MEDS: ACETAMINOPHEN 325 MG TABLET 650 MG PO (00:11)
[2024-12-06] MEDS: Calamine Lotion 120 ML BTL TOP ×2 (04:26→14:51)
[2024-12-06] MEDS: HEPARIN SOD INJ 5000 UNIT/ML VIAL SC ×3 (05:17→21:28)
[2024-12-06] MEDS: HYDROcodone/APAP 5/325 TABLET 1 TAB PO ×2 (05:23→16:47)
[2024-12-06 05:55] LABS: Basophils # (Auto) 0.1 Thou/mm3 (0.0-0.2); Basophils % (Auto) 1 % (0-2.5); Eosinophils # (Auto) 0.5 Thou/mm3 (0.0-0.5); Eosinophils % (Auto) 6 % (0-10); Hematocrit 31.1 % (36.0-46.0); Hemoglobin 10.7 g/dL (12.0-16.0); Immature Granulocytes % (Auto) 0 % (0-0); Immature Granulocytes Auto 0.01 Thou/mm3 (0.00-0.00); Lymphocytes # (Auto) 0.8 Thou/mm3 (1.0-4.8); Lymphocytes % (Auto) 11 % (10-50); Mean Corpuscular HGB Conc 34.4 g/dl (31.0-37.0); Mean Corpuscular Volume 87 fL (80-100); Monocytes # (Auto) 0.6 Thou/mm3 (0.0-0.8); Monocytes % (Auto) 8 % (0-12); Neutrophils # (Auto) 5.4 Thou/mm3 (1.8-7.7); Neutrophils % (Auto) 74 % (37-80); Nucleated Red Blood Cell % 0 /100 WBC (0); Platelet Count 185 Thou/mm3 (140-440); RDW Standard Deviation 45.1 fL (36.4-46.3); Red Blood Count 3.57 Miln/mm3 (4.00-5.20); White Blood Count 7.2 Thou/mm3 (3.6-11.0)
[2024-12-06 06:35] LABS: Alanine Aminotransferase 18 U/L (10-49); Albumin, Serum 3.3 gm/dL (3.4-4.8); Albumin/Globulin Ratio 1.4 (1.2-2.2); Alkaline Phosphatase 124 U/L (46-116); Anion Gap 9 (7-16); Aspartate Amino Transferase 15 U/L (0-34); BUN/Creatinine Ratio 36 Ratio (12-20); Bilirubin,Total 0.2 mg/dL (0.3-1.2); Blood Urea Nitrogen 18 mg/dL (9-23); Calcium 8.4 mg/dL (8.3-10.6); Carbon Dioxide 29.3 mMol/L (20.0-31.0); Chloride 100 mMol/L (98-107); Creatinine (Component) 0.5 mg/dL (0.6-1.3); Estimated Creatinine Clearance 96.6 mL/min (>60); Globulin 2.3 gm/dL (2.3-3.5); Glucose 287 mg/dL (74-106); Magnesium 1.6 mg/dL (1.6-2.6); Osmolality,Calculated 287 (275-295); Phosphorous 2.9 mg/dL (2.4-5.1); Potassium 4.3 mMol/L (3.4-5.1); Sodium 138 mMol/L (136-145); Total Protein 5.6 gm/dL (5.7-8.2); eGFR > 60 See Note
[2024-12-06] MEDS: INSULIN LISPRO (AdmeLOG) 1 UNIT/0.01 ML UNIT SC ×3 (07:28→21:28)
[2024-12-06] MEDS: cefTRIAXone/D5w 2gm 2 GM/50 ML BAG IV (09:08)
[2024-12-06] MEDS: ASPIRIN EC 81 MG TABEC PO (09:09)
[2024-12-06] MEDS: CLOPIDOGREL BISULFATE 75 MG TABLET PO (09:09)
[2024-12-06] MEDS: PANTOPRAZOLE INJ 40 MG VIAL IVP (09:09)
[2024-12-06] MEDS: levETIRAcetam 250 MG TABLET 1000 MG PO ×2 (09:09→21:26)
[2024-12-06] MEDS: VANCOMYCIN/WATER 1250 MG IVPB 250 ML 120 MG IV ×2 (10:00→21:39)
--- NOTE | 2024-12-06 11:30 | ESPR_ITS ---
<Statement entered by Sathish Duffy MD - 12/07/24 07:19> I discussed with and supervised the general internal medicine physician physician involved in the care of this patient. Patient assessment and plan was discussed with entire medicine team, including my attending. I agree with the assessment and plan as documented by general internal medicine physician doctor. Patient care was discussed with my attending physician Dr. Dayna Duffy, PGY-2 Documentation for date of: 12/06/24 Subjective Subjective Interval history: Patient was seen and examined by the bedside. No acute overnight events. Patient is feeling well, requesting more food. Will give additional food and adjust insulin regimen. Continues to receive antibiotics. Pending ID recs for discharge. Patient porbably will require PICC line placement depending on ID recs. NPO after midnight in case patient will undergo procedure tomorrow. Scabies preparation was negative. According to the family, patient has itchiness after being bitten by mosquitos. Will try benadryl for itching. Exam Vital Signs Temp Pulse Resp BP Pulse Ox O2 Del Method 97.0 F 66 17 136/69 H 99 Room Air 12/06/24 08:00 12/06/24 08:01 12/06/24 08:01 12/06/24 08:00 12/06/24 08:01 12/06/24 04:00 Narrative Exam Gen: Well-developed and well-nourished. HEENT: NCAT, PERRLA, EOMI, MMM, anicteric conjunctivae. CVS: normal S1 and S2. RRR. Systolic 3/6 murmur in the right 2nd intercostal area. Resp: CTA B/L. No rhonchi, rales, crackles or wheezing. Abd: soft, non-tender, non-distended. BS+ in all 4 quadrants. MSK: Left metatarsal amputation, partial necrosis of big toe, gangrene of second toe with erythema. Scar on left upper extremity extending from axilla to the arm. Scar on right knee and right ankle. Multiple excoriations, interdigital scaly rash. Neuro: CN II-XII grossly intact. Strength 5/5 in BUE & BLE. Alert and oriented x2. Psych: appropriate mood and affect. Objective Labs 12/06/24 05:38 12/06/24 05:38 Labs: Laboratory Results - last 24 hr 12/06/24 05:38 WBC 7.2 RBC 3.57 L Hgb 10.7 L Hct 31.1 L MCV 87 MCH 30.0 MCHC 34.4 RDW Std Deviation 45.1 Plt Count 185 Neut % (Auto) 74 Lymph % (Auto) 11 [place] % (Auto) 8 Eos % (Auto) 6 Baso % (Auto) 1 Neut # (Auto) 5.4 Lymph # (Auto) 0.8 L [place] # (Auto) 0.6 Eos # (Auto) 0.5 Baso # (Auto) 0.1 Immature Gran # (Auto) 0.01 H Absolute Nucleated RBC 0.00 Immature Gran % 0 Nucleated RBC % 0 Sodium 138 Potassium 4.3 Chloride 100 Carbon Dioxide 29.3 Anion Gap 9 BUN 18 Creatinine 0.5 L Estim Creat Clear Calc 96.6 eGFR > 60 BUN/Creatinine Ratio 36 H Glucose 287 H D Calculated Osmolality 287 Calcium 8.4 Corrected Calcium 9.0 Phosphorus 2.9 Magnesium 1.6 Total Bilirubin 0.2 L AST 15 ALT 18 Alkaline Phosphatase 124 H D Total Protein 5.6 L Albumin 3.3 L Globulin 2.3 Albumin/Globulin Ratio 1.4 Quality Measures Quality Measures VTE prophylaxis Advance care planning discussed with:: other Assessment & Plan Assessment Current Active Medications: Generic Name Dose Route Start Last Admin Trade Name Freq PRN Reason Stop Dose Admin Acetaminophen 650 mg 12/04/24 16:34 12/06/24 00:11 Acetaminophen 325 Mg Tablet PO 01/02/25 21:04 650 mg Q6H PRN Administration Fever >100.3 or pain 1-3 Hydrocodone Bitart/Acetaminophen 1 tab 12/06/24 08:06 Hydrocodone/Apap 5/325 Tablet PO 12/10/24 03:51 Q8HR PRN Pain 4-10 Albuterol/Ipratropium 3 ml 12/04/24 14:11 Albuterol/Ipratropium (Duoneb) Rt Mere 3 Ml Nebu INH 01/03/25 14:10 Q2HR PRN SHORTNESS OF BREATH OR WHEEZE Aspirin 81 mg 12/05/24 09:15 12/06/24 09:09 Aspirin Ec 81 Mg Tabec PO 01/04/25 09:14 81 mg QDAY HARPER Administration Atorvastatin Calcium 40 mg 12/04/24 21:00 12/05/24 21:11 Atorvastatin Calcium 20 Mg Tablet PO 01/03/25 20:59 40 mg HS HARPER Administration Calamine 0 ml 12/06/24 14:00 Calamine Lotion 120 Ml Btl TOP 01/05/25 13:59 TID HARPER Clopidogrel Bisulfate 75 mg 12/05/24 09:30 12/06/24 09:09 Clopidogrel Bisulfate 75 Mg Tablet PO 01/04/25 09:29 75 mg QDAY HARPER Administration Dextrose 25 ml 12/03/24 21:10 Dextrose 50%-Water Inj 50 Ml Syringe IV 01/02/25 21:09 Q15MIN PRN BG 50-70 responsive npo pt Dextrose 50 ml 12/03/24 21:10 Dextrose 50%-Water Inj 50 Ml Syringe IV 01/02/25 21:09 Q15MIN PRN BG <50 OR BG <70 & pt unresponsive Glucagon 1 mg 12/03/24 21:10 Glucagon Inj 1 Mg Vial IM Q15MIN PRN BG <70, and no IV access Heparin Sodium (Porcine) 5,000 unit 12/05/24 14:00 12/06/24 05:17 Heparin Sod Inj 5000 Unit/Ml Vial SC 12/19/24 13:59 5,000 unit Q8HR HARPER Administration Ceftriaxone Sodium/Dextrose 2 gm in 50 mls @ 100 mls/hr 12/04/24 09:00 12/06/24 09:08 Rocephin/D5w 2gm IV 12/11/24 06:24 100 mls/hr QDAY HARPER Administration Vancomycin HCl 250 mls @ 120 mls/hr 12/05/24 22:00 12/05/24 21:30 Vancomycin/Water 1250 Mg Ivpb IV 12/12/24 21:59 120 mls/hr Q12H HARPER Administration Insulin Glargine 12 unit 12/06/24 21:00 Insulin Glargine (Lantus) 5 Unit/0.05 Ml (Per 5 Units) SC 01/05/25 20:59 HS HARPER Insulin Human Lispro 0 unit 12/04/24 17:00 12/06/24 07:28 Insulin Lispro (Admelog) 1 Unit/0.01 Ml Unit SC 01/03/25 16:59 4 unit ACHS HARPER Administration Protocol Insulin Human Lispro 2 unit 12/06/24 11:30 Insulin Lispro (Admelog) 1 Unit/0.01 Ml Unit SC 01/05/25 11:29 AC HARPER Levetiracetam 1,000 mg 12/04/24 09:00 12/06/24 09:09 Levetiracetam 250 Mg Tablet PO 01/03/25 08:59 1,000 mg BID HARPER Administration Ondansetron HCl 4 mg 12/03/24 21:05 Ondansetron Inj 2 Mg/Ml Inj 2 Ml IVP 01/02/25 21:04 Q6H PRN NAUSEA OR VOMITING Protocol Pantoprazole Sodium 40 mg 12/04/24 09:00 12/06/24 09:09 Pantoprazole Inj 40 Mg Vial IVP 01/03/25 08:59 40 mg QDAY HARPER Administration Permethrin 0 gm 12/04/24 12:30 12/05/24 16:39 Permethrin Cr 5% 60 Gm Tube TOP 01/03/25 12:29 Not Given UD [facility] Pharmacy Consult 1 each 12/04/24 09:00 Vancomycin Pharmacy To Dose 1 Each Each IV 01/03/25 08:59 QDAY PRN CONSULT Plan A 68-year-old female with significant past medical history of diabetes mellitus, hypertension, hyperlipidemia, Asthma, CAD status post CABG, CVA, seizure disorder, ?osteomyelitis, left diabetic foot s/p amputation presented to the hospital with chief complaints of pain in the right foot since 2 days and admitted in the hospital for diabetic foot, gangrene and osteomyelitis of right foot #Osteomyelitis of right distal and proximal phalanx of IVth foot digit #IInd toe gangrene #Ist toe partial necrosis #Diabetic foot infection Presented to the hospital with chief complaints of blackish discoloration of right foot Denies fever, other associated symptoms Reported that she had previous history of osteomyelitis for which she underwent left foot amputation Labs at the time of admission are significant for elevated CRP, 4 and glucose 311 X-ray right foot showed osteomyelitis of distal fourth metatarsal and proximal phalanx fourth digit. 12/04/24: patient underwent 2nd toe amputaion and big toe necrotic tissue excision. Plan: - ID specialist was consulted - Ceftriaxone and vancomycin [12/04-current] - pending wound cultures - blood cultures negative after 48 hours - ID recs pending #PAD LE Dopper showed severe PAD which is contributing to the foot infection. Plan: - atorvastatin 40 mg qday #Diabetes mellitus, type II Patient is using oral medications at home A1c is 6.8 in 12/04: A1c 7.2% Plan: - Insulin sliding scale - Glargine 9 units at bedtime - Lispri 2U TID with meals - Hypoglycemia protocol in place #History of hypertension Patient does not remember the name of the medications Plan: - Will monitor blood pressures for now and add medications as needed #History of CAD s/p CABG #History of CVA Plan: - resumed aspirin 81 mg qday - resumed plavix 75 mg qday - Medication reconciliation #History of seizures Plan: - Medication reconciliation is ordered -Levetiracetam 1000 mg p.o. twice daily #History of asthma Patient reported that she had history of asthma, currently stable Plan: -Duoneb inhalations as needed #Skin lesion #Pruritis Patient reports feeling itchy, multiple body excoriations, interdigital rash. Denies recent antibiotics use. High suspicion for scabies. According to son, she usually has pruritus after mosquito bites. Son denies itchiness of other home residents. Plan: - calamine lotion as needed for itchiness - benadryl as needed Hospital Maintenance: Dispo: medsurg DVT ppx: heparin 5000 U sc q8hr GI ppx: Protonix Diet: carbohydrate consistent IV lines: Peripheral Code status: Full code Plan of care discussed with attending Dr. Mcintosh and PGY-2 Dr. Duffy. Nila Jasmine MD, PGY 1. Attending Provider Attestation/Addendum I have discussed and was present for the essential components of the history, physical examination, diagnosis, and treatment plan with the resident. I agree with the patient's care as documented by the resident and amended herein by me. Jamir Mcintosh DO. Patient seen and evaluated this AM. No acute events overnight, vital signs stable, patient afebrile patient only endorsed he was hungry this morning. Significant labs included WBC of 7.2, BMP largely unremarkable. Toe culture growing GPC's. Initial foot x-ray on 12/03 demonstrated osteomyelitis of the distal fourth metatarsal and proximal phalanx of the fourth digit, surgery was performed on 12/04 in which the patient's right big toe was debrided and the second toe was amputated all the way up to the metal tarsal phalangeal joint. Considering the patient's osteomyelitis was noted to be on the metatarsal itself, we may need long-term antibiotics for 6 weeks for this patient. ID was consulted however did not see on Thursday, will see the patient tomorrow, may need PICC line for IV antibiotics however will make the final decision tomorrow. Continue to monitor closely while she is here. Although this document has been carefully reviewed, there may still be some phonetic and other typographical errors. These errors are purely grammatical due to imperfections in the software program and should not be construed in any way to compromise the substance of the patient's medical care during this visit.
[2024-12-06] MEDS: INSULIN LISPRO (AdmeLOG) 1 UNIT/0.01 ML UNIT 2 UNIT SC ×2 (12:25→18:20)
[2024-12-06] MEDS: DiphenhydrAMINE ELIX 25 MG/10 ML UDC 12.5 MG PO (12:38)
--- NOTE | 2024-12-06 14:34 | PC.SS ---
Rounding Note: I&D recommendations are pending. Patient might require PICC line for antibiotics.
--- NOTE | 2024-12-06 14:35 | PC.SS ---
DIRECTOR OF THERAPY SERVICES received phone call from wound care nurse recommending home health, wound care; for the patient upon discharge home.
[2024-12-06] MEDS: DiphenhydrAMINE 25 MG CAPSULE PO (18:33)
[2024-12-06] MEDS: ATORVASTATIN CALCIUM 20 MG TABLET 40 MG PO (21:26)
[2024-12-06] MEDS: INSULIN GLARGINE (Lantus) 5 UNIT/0.05 ML (PER 5 UNITS) 12 UNIT SC (21:29)
[2024-12-07] VITALS (7 sets, daily range): BP systolic 108–146; BP diastolic 59–82; PULSE 69–80; RESP 14–99; TEMP 36–36.7; O2SAT 95–99; BMI 20.1; BMI 11.0
[2024-12-07] MEDS: DiphenhydrAMINE 25 MG CAPSULE PO ×2 (00:40→12:34)
[2024-12-07] MEDS: HYDROcodone/APAP 5/325 TABLET 1 TAB PO ×2 (00:53→16:58)
[2024-12-07] MEDS: Calamine Lotion 120 ML BTL TOP ×3 (05:02→21:01)
[2024-12-07] MEDS: ACETAMINOPHEN 325 MG TABLET 650 MG PO (05:02)
[2024-12-07] MEDS: HEPARIN SOD INJ 5000 UNIT/ML VIAL SC ×2 (05:03→21:01)
[2024-12-07 05:34] LABS: Basophils # (Auto) 0.1 Thou/mm3 (0.0-0.2); Basophils % (Auto) 1 % (0-2.5); Eosinophils # (Auto) 0.4 Thou/mm3 (0.0-0.5); Eosinophils % (Auto) 7 % (0-10); Hematocrit 29.6 % (36.0-46.0); Hemoglobin 10.2 g/dL (12.0-16.0); Immature Granulocytes % (Auto) 0 % (0-0); Immature Granulocytes Auto 0.01 Thou/mm3 (0.00-0.00); Lymphocytes # (Auto) 0.8 Thou/mm3 (1.0-4.8); Lymphocytes % (Auto) 11 % (10-50); Mean Corpuscular HGB Conc 34.5 g/dl (31.0-37.0); Mean Corpuscular Hemoglobin 29.1 pg (25.0-35.0); Mean Corpuscular Volume 85 fL (80-100); Monocytes # (Auto) 0.5 Thou/mm3 (0.0-0.8); Monocytes % (Auto) 8 % (0-12); Neutrophils # (Auto) 4.9 Thou/mm3 (1.8-7.7); Neutrophils % (Auto) 73 % (37-80); Nucleated Red Blood Cell % 0 /100 WBC (0); Platelet Count 196 Thou/mm3 (140-440); RDW Standard Deviation 44.4 fL (36.4-46.3); White Blood Count 6.7 Thou/mm3 (3.6-11.0)
[2024-12-07 06:37] LABS: Alanine Aminotransferase 19 U/L (10-49); Albumin, Serum 3.1 gm/dL (3.4-4.8); Albumin/Globulin Ratio 1.3 (1.2-2.2); Alkaline Phosphatase 113 U/L (46-116); Anion Gap 11 (7-16); Aspartate Amino Transferase 20 U/L (0-34); BUN/Creatinine Ratio 48 Ratio (12-20); Bilirubin,Total 0.2 mg/dL (0.3-1.2); Blood Urea Nitrogen 19 mg/dL (9-23); Calcium 8.6 mg/dL (8.3-10.6); Calcium (Corrected) 9.3 mg/dL (8.5-10.1); Carbon Dioxide 27.8 mMol/L (20.0-31.0); Chloride 104 mMol/L (98-107); Creatinine (Component) 0.4 mg/dL (0.6-1.3); Estimated Creatinine Clearance 118.7 mL/min (>60); Globulin 2.3 gm/dL (2.3-3.5); Glucose 112 mg/dL (74-106); Magnesium 1.6 mg/dL (1.6-2.6); Osmolality,Calculated 288 (275-295); Potassium 4.7 mMol/L (3.4-5.1); Sodium 143 mMol/L (136-145); Total Protein 5.4 gm/dL (5.7-8.2); eGFR > 60 See Note
[2024-12-07] MEDS: PANTOPRAZOLE INJ 40 MG VIAL IVP (08:48)
[2024-12-07] MEDS: ASPIRIN EC 81 MG TABEC PO (08:49)
[2024-12-07] MEDS: DOXYCYCLINE 100 MG TABLET PO ×2 (08:49→20:04)
[2024-12-07] MEDS: CLOPIDOGREL BISULFATE 75 MG TABLET PO (08:49)
[2024-12-07 09:21] LABS: Vancomycin,Trough 33.1 mcg/mL (5.0-10.0)
[2024-12-07] MEDS: Magnesium Sulfate 4 GM Ivpb 4 GM/50 ML BAG IV (09:21)
[2024-12-07] MEDS: levETIRAcetam 250 MG TABLET 1000 MG PO ×2 (09:22→20:51)
[2024-12-07] MEDS: cefTRIAXone/D5w 2gm 2 GM/50 ML BAG IV (09:24)
[2024-12-07] MEDS: INSULIN LISPRO (AdmeLOG) 1 UNIT/0.01 ML UNIT 2 UNIT SC ×2 (12:32→16:59)
--- NOTE | 2024-12-07 13:00 | ESPR_ITS ---
<Statement entered by Sathish Duffy MD - 12/08/24 07:14> I discussed with and supervised the internet researcher physician involved in the care of this patient. Patient assessment and plan was discussed with entire medicine team, including my attending. I agree with the assessment and plan as documented by internet researcher doctor. Patient care was discussed with my attending physician Dr. Dayna Duffy, PGY-2 Documentation for date of: 12/07/24 Subjective Subjective Interval history: Patient was seen and examined by the bedside. No acute overnight events. Afebrile, saturates well on room air. Patient reports some pain in the right foot. Wound culture grew MSSA. Antibiotic regimen was changed to doxycycline and ceftriaxone. Pending ID recs for discharge. Will possible receive PICC line tomorrow. Anticipating DC in 24-48 hours with SNF placement. Talked to the son, gave her update on the plan of care and discharge plan. All questions were answered to the satisfaction. Exam Vital Signs Temp Pulse Resp BP Pulse Ox O2 Del Method 97.2 F 72 25 H 121/70 97 Room Air 12/07/24 08:00 12/07/24 08:00 12/07/24 08:00 12/07/24 08:00 12/07/24 08:00 12/07/24 08:00 Narrative Exam Gen: Well-developed and well-nourished. HEENT: NCAT, PERRLA, EOMI, MMM, anicteric conjunctivae. CVS: normal S1 and S2. RRR. Systolic 3/6 murmur in the right 2nd intercostal area. Resp: CTA B/L. No rhonchi, rales, crackles or wheezing. Abd: soft, non-tender, non-distended. BS+ in all 4 quadrants. MSK: Left metatarsal amputation, partial necrosis of big toe, gangrene of second toe with erythema. Scar on left upper extremity extending from axilla to the arm. Scar on right knee and right ankle. Multiple excoriations, interdigital scaly rash. Neuro: CN II-XII grossly intact. Strength 5/5 in BUE & BLE. Alert and oriented x2. Psych: appropriate mood and affect. Objective Labs 12/08/24 04:10 12/08/24 04:10 Labs: Laboratory Results - last 24 hr 12/07/24 12/07/24 05:22 08:55 WBC 6.7 RBC 3.50 L Hgb 10.2 L Hct 29.6 L MCV 85 MCH 29.1 MCHC 34.5 RDW Std Deviation 44.4 Plt Count 196 Neut % (Auto) 73 Lymph % (Auto) 11 [place] % (Auto) 8 Eos % (Auto) 7 Baso % (Auto) 1 Neut # (Auto) 4.9 Lymph # (Auto) 0.8 L [place] # (Auto) 0.5 Eos # (Auto) 0.4 Baso # (Auto) 0.1 Immature Gran # (Auto) 0.01 H Absolute Nucleated RBC 0.00 Immature Gran % 0 Nucleated RBC % 0 Sodium 143 Potassium 4.7 Chloride 104 Carbon Dioxide 27.8 Anion Gap 11 BUN 19 Creatinine 0.4 L Estim Creat Clear Calc 118.7 eGFR > 60 BUN/Creatinine Ratio 48 H Glucose 112 H D Calculated Osmolality 288 Calcium 8.6 Corrected Calcium 9.3 Phosphorus 3.0 Magnesium 1.6 Total Bilirubin 0.2 L AST 20 ALT 19 Alkaline Phosphatase 113 Total Protein 5.4 L Albumin 3.1 L Globulin 2.3 Albumin/Globulin Ratio 1.3 Vancomycin Trough 33.1 H* Quality Measures Quality Measures VTE prophylaxis Advance care planning discussed with:: other Assessment & Plan Assessment Current Active Medications: Generic Name Dose Route Start Last Admin Trade Name Freq PRN Reason Stop Dose Admin Acetaminophen 650 mg 12/04/24 16:34 12/07/24 05:02 Acetaminophen 325 Mg Tablet PO 01/02/25 21:04 650 mg Q6H PRN Administration Fever >100.3 or pain 1-3 Hydrocodone Bitart/Acetaminophen 1 tab 12/06/24 08:06 12/07/24 00:53 Hydrocodone/Apap 5/325 Tablet PO 12/10/24 03:51 1 tab Q8HR PRN Administration Pain 4-10 Albuterol/Ipratropium 3 ml 12/04/24 14:11 Albuterol/Ipratropium (Duoneb) Rt Mere 3 Ml Nebu INH 01/03/25 14:10 Q2HR PRN SHORTNESS OF BREATH OR WHEEZE Aspirin 81 mg 12/05/24 09:15 12/07/24 08:49 Aspirin Ec 81 Mg Tabec PO 01/04/25 09:14 81 mg QDAY HARPER Administration Atorvastatin Calcium 40 mg 12/04/24 21:00 12/06/24 21:26 Atorvastatin Calcium 20 Mg Tablet PO 01/03/25 20:59 40 mg HS HARPER Administration Calamine 0 ml 12/06/24 14:00 12/07/24 05:02 Calamine Lotion 120 Ml Btl TOP 01/05/25 13:59 1 applicatio TID HARPER Administration Clopidogrel Bisulfate 75 mg 12/05/24 09:30 12/07/24 08:49 Clopidogrel Bisulfate 75 Mg Tablet PO 01/04/25 09:29 75 mg QDAY HARPER Administration Dextrose 25 ml 12/03/24 21:10 Dextrose 50%-Water Inj 50 Ml Syringe IV 01/02/25 21:09 Q15MIN PRN BG 50-70 responsive npo pt Dextrose 50 ml 12/03/24 21:10 Dextrose 50%-Water Inj 50 Ml Syringe IV 01/02/25 21:09 Q15MIN PRN BG <50 OR BG <70 & pt unresponsive Diphenhydramine HCl 25 mg 12/06/24 11:38 12/07/24 12:34 Diphenhydramine 25 Mg Capsule PO 01/05/25 11:37 25 mg Q6HR PRN Administration ITCHING Doxycycline Hyclate 100 mg 12/07/24 09:00 12/07/24 08:49 Doxycycline 100 Mg Tablet PO 12/14/24 08:59 100 mg BID HARPER Administration Glucagon 1 mg 12/03/24 21:10 Glucagon Inj 1 Mg Vial IM Q15MIN PRN BG <70, and no IV access Heparin Sodium (Porcine) 5,000 unit 12/05/24 14:00 12/07/24 05:03 Heparin Sod Inj 5000 Unit/Ml Vial SC 12/19/24 13:59 5,000 unit Q8HR HARPER Administration Ceftriaxone Sodium/Dextrose 2 gm in 50 mls @ 100 mls/hr 12/04/24 09:00 12/07/24 09:24 Rocephin/D5w 2gm IV 12/11/24 06:24 100 mls/hr QDAY HARPER Administration Insulin Glargine 12 unit 12/06/24 21:00 12/06/24 21:29 Insulin Glargine (Lantus) 5 Unit/0.05 Ml (Per 5 Units) SC 01/05/25 20:59 12 unit HS HARPER Administration Insulin Human Lispro 2 unit 12/06/24 11:30 12/07/24 12:32 Insulin Lispro (Admelog) 1 Unit/0.01 Ml Unit SC 01/05/25 11:29 2 unit AC HARPER Administration Insulin Human Lispro 0 unit 12/06/24 12:15 12/07/24 12:02 Insulin Lispro (Admelog) 1 Unit/0.01 Ml Unit SC 01/05/25 12:14 Not Given ACHS HARPER Protocol Levetiracetam 1,000 mg 12/04/24 09:00 12/07/24 09:22 Levetiracetam 250 Mg Tablet PO 01/03/25 08:59 1,000 mg BID HARPER Administration Ondansetron HCl 4 mg 12/03/24 21:05 Ondansetron Inj 2 Mg/Ml Inj 2 Ml IVP 01/02/25 21:04 Q6H PRN NAUSEA OR VOMITING Protocol Pantoprazole Sodium 40 mg 12/08/24 09:00 Pantoprazole 40 Mg Tablet PO 01/07/25 08:59 QDAY HARPER Protocol Polyethylene Glycol 17 gm 12/07/24 08:02 Polyethylene Glycol 17 Gm Packet PO 01/06/25 08:59 QDAY PRN constipation Sennosides 1 tab 12/07/24 08:02 Senna Tablet PO 01/06/25 08:01 QDAY PRN CONSTIPATION Protocol Plan A 68-year-old female with significant past medical history of diabetes mellitus, hypertension, hyperlipidemia, Asthma, CAD status post CABG, CVA, seizure disorder, ?osteomyelitis, left diabetic foot s/p amputation presented to the hospital with chief complaints of pain in the right foot since 2 days and admitted in the hospital for diabetic foot, gangrene and osteomyelitis of right foot #Osteomyelitis of right distal and proximal phalanx of IVth foot digit #IInd toe gangrene #Ist toe partial necrosis #Diabetic foot infection Presented to the hospital with chief complaints of blackish discoloration of right foot Denies fever, other associated symptoms Reported that she had previous history of osteomyelitis for which she underwent left foot amputation Labs at the time of admission are significant for elevated CRP, 4 and glucose 311 X-ray right foot showed osteomyelitis of distal fourth metatarsal and proximal phalanx fourth digit. 12/04/24: patient underwent 2nd toe amputaion and big toe necrotic tissue excision. Plan: - ID specialist was consulted - Ceftriaxone and n [12/04-current] - vancomyci 12/04-12/07 - Doxycycline 12/07-current - Wound culture grew MSSA - blood cultures negative after 48 hours - ID recs pending #PAD LE Dopper showed severe PAD which is contributing to the foot infection. Plan: - atorvastatin 40 mg qday #Diabetes mellitus, type II Patient is using oral medications at home A1c is 6.8 in 12/04: A1c 7.2% Plan: - Insulin sliding scale - Glargine 9 units at bedtime - Lispri 2U TID with meals - Hypoglycemia protocol in place #History of hypertension Patient does not remember the name of the medications Plan: - Will monitor blood pressures for now and add medications as needed #History of CAD s/p CABG #History of CVA Plan: - resumed aspirin 81 mg qday - resumed plavix 75 mg qday - Medication reconciliation #History of seizures Plan: - Medication reconciliation is ordered -Levetiracetam 1000 mg p.o. twice daily #History of asthma Patient reported that she had history of asthma, currently stable Plan: -Duoneb inhalations as needed #Skin lesion #Pruritis Patient reports feeling itchy, multiple body excoriations, interdigital rash. Denies recent antibiotics use. High suspicion for scabies. According to son, she usually has pruritus after mosquito bites. Son denies itchiness of other home residents. Plan: - calamine lotion as needed for itchiness - benadryl as needed Hospital Maintenance: Dispo: medsurg DVT ppx: heparin 5000 U sc q8hr GI ppx: Protonix Diet: carbohydrate consistent IV lines: Peripheral Code status: Full code Plan of care discussed with attending Dr. Mcintosh and PGY-2 Dr. Duffy. Nila Jasmine MD, PGY 1. Attending Provider Attestation/Addendum I have discussed and was present for the essential components of the history, physical examination, diagnosis, and treatment plan with the resident. I agree with the patient's care as documented by the resident and amended herein by me. Jamir Mcintosh DO. Although this document has been carefully reviewed, there may still be some phonetic and other typographical errors. These errors are purely grammatical due to imperfections in the software program and should not be construed in any way to compromise the substance of the patient's medical care during this visit.
--- NOTE | 2024-12-07 15:30 | PC.SS ---
Rounding Note: ID recommendations remain pending. Dr. Villeda consulting. Possible IV antibiotic regimen pending.
--- NOTE | 2024-12-07 16:45 | PD.IDPROG ---
Subjective Subjective Interval history: nice lady, states sehe bumpted her rt foot at home. but there is osteo there on imaging not a great historian. Exam Vital Signs Temp Pulse Resp BP Pulse Ox O2 Del Method 97.2 F 74 20 108/59 L 99 Room Air 12/07/24 12:00 12/07/24 12:00 12/07/24 12:00 12/07/24 12:00 12/07/24 12:00 12/07/24 12:00 Narrative Exam rt foot wrapped. L foot absent at nearly a syme type amputation. imaging and surgical reports noted. primary team wants recs for rx for residual osteo. Objective - Internal Medicine Labs 12/07/24 05:22 12/07/24 05:22 Labs: Laboratory Results - last 24 hr 12/07/24 12/07/24 05:22 08:55 WBC 6.7 RBC 3.50 L Hgb 10.2 L Hct 29.6 L MCV 85 MCH 29.1 MCHC 34.5 RDW Std Deviation 44.4 Plt Count 196 Neut % (Auto) 73 Lymph % (Auto) 11 [place] % (Auto) 8 Eos % (Auto) 7 Baso % (Auto) 1 Neut # (Auto) 4.9 Lymph # (Auto) 0.8 L [place] # (Auto) 0.5 Eos # (Auto) 0.4 Baso # (Auto) 0.1 Immature Gran # (Auto) 0.01 H Absolute Nucleated RBC 0.00 Immature Gran % 0 Nucleated RBC % 0 Sodium 143 Potassium 4.7 Chloride 104 Carbon Dioxide 27.8 Anion Gap 11 BUN 19 Creatinine 0.4 L Estim Creat Clear Calc 118.7 eGFR > 60 BUN/Creatinine Ratio 48 H Glucose 112 H D Calculated Osmolality 288 Calcium 8.6 Corrected Calcium 9.3 Phosphorus 3.0 Magnesium 1.6 Total Bilirubin 0.2 L AST 20 ALT 19 Alkaline Phosphatase 113 Total Protein 5.4 L Albumin 3.1 L Globulin 2.3 Albumin/Globulin Ratio 1.3 Vancomycin Trough 33.1 H* Assessment & Plan A&P Narrative osteo of rt foot. proximal to are of surgery prior infection of L foot. s/p extensive surgery cad with prior cabg noted ? hx of Ca. no port noted. pt not a great historian. may have had neuro impairment due to cva hx ok for rocephin 2 gm iv daily thru 01/15 with picc and weekly cbc, renal panel, esr and line removal at end of rx. if unsuccessful, then look at surgery as circulation to feet often impaired.no mrsa, so likely can avoid the doxy in her case. Time Spent With Patient Time: Total time spent is greater than 50% in coordination of care (as documented) at patient's floor/unit and/or counseling patient:
[2024-12-07] MEDS: INSULIN LISPRO (AdmeLOG) 1 UNIT/0.01 ML UNIT SC ×2 (16:59→20:52)
--- NOTE | 2024-12-07 17:00 | ESCONSULT_ITS ---
<Statement entered by Denver Villeda MD - 12/09/24 09:33> pt seen with resident. all findings confirmed. see additional notes for details HPI Data of Consult Requesting Physician: Kevin Mcintosh DO Admitting Provider: Lei Lin MD Attending Provider: Kevin Mcintosh DO Primary Care Provider: Renu Perkins NP Consult Narrative History of present illness: 68-year-old female with significant past medical history of diabetes mellitus, hypertension, hyperlipidemia, asthma, CAD status post CABG, CVA, seizure disorder, osteomyelitis with left diabetic foot s/p amputation presented to the hospital with chief complaints of pain in the right foot. Imaging showed osteomyelitis for which patient had amputation done of the right second toe. ID consulted for antibiotic management. Patient seen and assessed at bedside resting comfortably in bed, somewhat of a poor historian, stated age was around in the 30s. cc:: cc: Kevin Mcintosh DO Exam Vital Signs Temp Pulse Resp BP Pulse Ox O2 Del Method 97.2 F 74 20 108/59 L 99 Room Air 12/07/24 12:12/07/24 12:12/07/24 12:12/07/24 12:00 12/07/24 12:12/07/24 12:00 Narrative Exam Gen: Well-developed and well-nourished, resting comfortably in bed- CVS: RRR. Systolic 3/6 murmur in the right 2nd intercostal area. Resp: CTA B/L. No rhonchi, rales, crackles or wheezing. Abd: soft, non-tender, non-distended. BS+ in all 4 quadrants. MSK: Left metatarsal amputation, right foot bandaged. Scar on right knee. Psych: appropriate mood and affect. Results Labs 12/07/24 05:22 12/07/24 05:22 Labs: Short CBC 12/07/24 Range/Units 05:22 WBC 6.7 (3.6-11.0) Thou/mm3 Hgb 10.2 L (12.0-16.0) g/dL Hct 29.6 L (36.0-46.0) % Plt Count 196 (140-440) Thou/mm3 BMP 12/07/24 05:22 Sodium 143 Potassium 4.7 Chloride 104 Carbon Dioxide 27.8 BUN 19 Creatinine 0.4 L Glucose 112 H D Calcium 8.6 Liver Function 12/07/24 Range/Units 05:22 Total Bilirubin 0.2 L (0.3-1.2) mg/dL AST 20 (0-34) U/L ALT 19 (10-49) U/L Alkaline Phosphatase 113 (46-116) U/L Albumin 3.1 L (3.4-4.8) gm/dL Quality Measures Quality Measures VTE prophylaxis Advance care planning discussed with:: patient Medications Home Medications and Allergies Home Medications ?Medication ?Instructions ?Recorded ?Confirmed ?Type clopidogrel 75 mg tablet (Plavix) 75 mg PO QDAY 04/23/21 History isosorbide mononitrate 60 mg 60 mg PO QDAY 10/31/19 History tablet,extended release 24 hr atorvastatin 20 mg tablet 20 mg PO HS 07/23/20 1 History aspirin 81 mg tablet,delayed 81 mg PO QAM 04/23/21 History release Allergies Allergy/AdvReac Type Severity Reaction Status Date / Time lettuce Allergy Severe SWELLING Verified 12/03/24 14:18 Penicillins Allergy Severe HIVES AND Verified 12/03/24 14:18 RESPIRATORY PROBLEMS shellfish derived Allergy Severe Rash Verified 12/03/24 14:18 adhesive Allergy Mild Blister Verified 12/03/24 14:18 iodine Allergy Mild RASH AND Verified 12/03/24 14:18 BLISTERS jaramillo pepper (green pepper) Allergy Unknown RASH, Verified 12/03/24 14:18 SWELLING, SORE TONGUE egg Allergy Unknown RASH Verified 12/03/24 14:18 Visit Medications Acetaminophen (Acetaminophen 325 Mg Tablet) 650 mg PO Q6H PRN PRN Reason: Fever >100.3 or pain 1-3 Stop: 01/02/25 21:04 Last Admin: 12/07/24 05:02 Dose: 650 mg Hydrocodone Bitart/Acetaminophen (Hydrocodone/Apap 5/325 Tablet) 1 tab PO Q8HR PRN PRN Reason: Pain 4-10 Stop: 12/10/24 03:51 Last Admin: 12/07/24 00:53 Dose: 1 tab Albuterol/Ipratropium (Albuterol/Ipratropium (Duoneb) Rt Mere 3 Ml Nebu) 3 ml INH Q2HR PRN PRN Reason: SHORTNESS OF BREATH OR WHEEZE Stop: 01/03/25 14:10 Aspirin (Aspirin Ec 81 Mg Tabec) 81 mg PO QDAY [facility] Stop: 01/04/25 09:14 Last Admin: 12/07/24 08:49 Dose: 81 mg Atorvastatin Calcium (Atorvastatin Calcium 20 Mg Tablet) 40 mg PO HS [facility] Stop: 01/03/25 20:59 Last Admin: 12/06/24 21:26 Dose: 40 mg Calamine (Calamine Lotion 120 Ml Btl) 0 ml TOP TID [facility] Stop: 01/05/25 13:59 Last Admin: 12/07/24 14:27 Dose: 1 applicatio Clopidogrel Bisulfate (Clopidogrel Bisulfate 75 Mg Tablet) 75 mg PO QDAY [facility] Stop: 01/04/25 09:29 Last Admin: 12/07/24 08:49 Dose: 75 mg Dextrose (Dextrose 50%-Water Inj 50 Ml Syringe) 25 ml IV Q15MIN PRN PRN Reason: BG 50-70 responsive npo pt Stop: 01/02/25 21:09 Dextrose (Dextrose 50%-Water Inj 50 Ml Syringe) 50 ml IV Q15MIN PRN PRN Reason: BG <50 OR BG <70 & pt unresponsive Stop: 01/02/25 21:09 Diphenhydramine HCl (Diphenhydramine 25 Mg Capsule) 25 mg PO Q6HR PRN PRN Reason: ITCHING Stop: 01/05/25 11:37 Last Admin: 12/07/24 12:34 Dose: 25 mg Doxycycline Hyclate (Doxycycline 100 Mg Tablet) 100 mg PO BID [facility] Stop: 12/14/24 08:59 Last Admin: 12/07/24 08:49 Dose: 100 mg Glucagon (Glucagon Inj 1 Mg Vial) 1 mg IM Q15MIN PRN PRN Reason: BG <70, and no IV access Heparin Sodium (Porcine) (Heparin Sod Inj 5000 Unit/Ml Vial) 5,000 unit SC Q8HR [facility] Stop: 12/19/24 13:59 Last Admin: 12/07/24 05:03 Dose: 5,000 unit Ceftriaxone Sodium/Dextrose (Rocephin/D5w 2gm) 2 gm in 50 mls @ 100 mls/hr IV QDAY [facility] Stop: 12/11/24 06:24 Last Admin: 12/07/24 09:24 Dose: 100 mls/hr Insulin Glargine (Insulin Glargine (Lantus) 5 Unit/0.05 Ml (Per 5 Units)) 12 unit SC HS [facility] Stop: 01/05/25 20:59 Last Admin: 12/06/24 21:29 Dose: 12 unit Insulin Human Lispro (Insulin Lispro (Admelog) 1 Unit/0.01 Ml Unit) 2 unit SC AC [facility] Stop: 01/05/25 11:29 Last Admin: 12/07/24 12:32 Dose: 2 unit Insulin Human Lispro (Insulin Lispro (Admelog) 1 Unit/0.01 Ml Unit) 0 unit SC ACHS [facility]; Protocol Stop: 01/05/25 12:14 Last Admin: 12/07/24 12:02 Dose: Not Given Levetiracetam (Levetiracetam 250 Mg Tablet) 1,000 mg PO BID [facility] Stop: 01/03/25 08:59 Last Admin: 12/07/24 09:22 Dose: 1,000 mg Ondansetron HCl (Ondansetron Inj 2 Mg/Ml Inj 2 Ml) 4 mg IVP Q6H PRN; Protocol PRN Reason: NAUSEA OR VOMITING Stop: 01/02/25 21:04 Pantoprazole Sodium (Pantoprazole 40 Mg Tablet) 40 mg PO QDAY [facility]; Protocol Stop: 01/07/25 08:59 Polyethylene Glycol (Polyethylene Glycol 17 Gm Packet) 17 gm PO QDAY PRN PRN Reason: constipation Stop: 01/06/25 08:59 Sennosides (Senna Tablet) 1 tab PO QDAY PRN; Protocol PRN Reason: CONSTIPATION Stop: 01/06/25 08:01 Discontinued Medications Acetaminophen (Acetaminophen 325 Mg Tablet) 650 mg PO Q6H PRN PRN Reason: Fever >101.5 Stop: 01/02/25 21:04 Acetaminophen (Acetaminophen 325 Mg Tablet) 650 mg PO Q6H PRN PRN Reason: Fever >100.3 Stop: 01/02/25 21:04 Hydrocodone Bitart/Acetaminophen (Hydrocodone/Apap 5/325 Tablet) 1 tab PO Q8HR PRN PRN Reason: Pain 4-10 Stop: 12/09/24 16:32 Last Admin: 12/04/24 22:05 Dose: 1 tab Hydrocodone Bitart/Acetaminophen (Hydrocodone/Apap 5/325 Tablet) 1 tab PO Q6HR PRN PRN Reason: Pain 4-10 Stop: 12/09/24 16:32 Last Admin: 12/06/24 05:23 Dose: 1 tab Calamine (Calamine Lotion 120 Ml Btl) 0 ml TOP UD PRN PRN Reason: ITCHING Stop: 01/03/25 14:11 Last Admin: 12/05/24 15:05 Dose: 1 applicatio Calamine (Calamine Lotion 120 Ml Btl) 0 ml TOP QDAY [facility] Stop: 01/04/25 14:44 Last Admin: 12/06/24 04:26 Dose: 1 appln Diphenhydramine HCl (Diphenhydramine Elix 25 Mg/10 Ml Udc) 12.5 mg PO X1 ONE Stop: 12/06/24 11:40 Last Admin: 12/06/24 12:38 Dose: 12.5 mg Fentanyl Citrate (Fentanyl Cit Inj 50 Mcg/Ml Amp 2ml) 25 mcg IVP Q5MIN PRN PRN Reason: PAIN SCALE 4-10(Mod-Sev Stop: 12/04/24 12:08 Clindamycin/Sodium Chloride (Cleocin/Ns Ivpb) 600 mg in 50 mls @ 100 mls/hr IV X1 ONE Stop: 12/03/24 18:28 Last Infusion: 12/03/24 21:38 Dose: Infused Ceftriaxone Sodium/Dextrose (Rocephin/D5w 1gm Iv Premix) 1 gm in 50 mls @ 100 mls/hr IV QDAY [facility] Stop: 12/10/24 22:07 Last Infusion: 12/04/24 00:18 Dose: Infused Vancomycin HCl 1,000 mg/ (Sodium Chloride) 250 mls @ 150 mls/hr IV X1 ONE Stop: 12/03/24 23:47 Last Admin: 12/04/24 00:33 Dose: 150 mls/hr Vancomycin HCl/Dextrose (Vancomycin/D5w 1,250 Mg Ivpb) 250 mls @ 120 mls/hr IV Q12H [facility]; Protocol Stop: 12/11/24 09:59 Last Admin: 12/05/24 10:45 Dose: 120 mls/hr Vancomycin HCl (Vancomycin/Water 1250 Mg Ivpb) 250 mls @ 120 mls/hr IV Q12H [facility] Stop: 12/12/24 21:59 Last Infusion: 12/06/24 23:45 Dose: Infused Magnesium Sulfate (Magnesium Sulfate Ivpb) 4 gm in 50 mls @ 12.5 mls/hr IV X1 ONE Stop: 12/07/24 11:53 Last Admin: 12/07/24 09:21 Dose: 12.5 mls/hr Insulin Glargine (Insulin Glargine (Lantus) 5 Unit/0.05 Ml (Per 5 Units)) 10 unit SC HS [facility] Stop: 01/03/25 20:59 Insulin Glargine (Insulin Glargine (Lantus) 5 Unit/0.05 Ml (Per 5 Units)) 6 unit SC [facility] Stop: 01/03/25 20:59 Last Admin: 12/05/24 21:10 Dose: 6 unit Insulin Glargine (Insulin Glargine (Lantus) 5 Unit/0.05 Ml (Per 5 Units)) 9 unit SC HS [facility] Stop: 01/05/25 20:59 Insulin Human Lispro (Insulin Lispro (Admelog) 1 Unit/0.01 Ml Unit) 0 unit SC AC [facility]; Protocol Stop: 01/03/25 07:29 Last Admin: 12/04/24 08:06 Dose: Not Given Insulin Human Lispro (Insulin Lispro (Admelog) 1 Unit/0.01 Ml Unit) 0 unit SC Q6HR [facility]; Protocol Stop: 01/03/25 11:59 Last Admin: 12/04/24 11:46 Dose: Not Given Insulin Human Lispro (Insulin Lispro (Admelog) 1 Unit/0.01 Ml Unit) 0 unit SC [facility]; Protocol Stop: 01/03/25 16:59 Last Admin: 12/06/24 07:28 Dose: 4 unit Insulin Human Lispro (Insulin Lispro (Admelog) 1 Unit/0.01 Ml Unit) 2 unit SC [facility] Stop: 01/05/25 11:29 Insulin Human Lispro (Insulin Lispro (Admelog) 1 Unit/0.01 Ml Unit) 0 unit SC [facility]; Protocol Stop: 01/03/25 16:59 Metoprolol Tartrate (Metoprolol Tartrate Inj 1 Mg/Ml Amp 5 Ml) 1 mg IVP Q5MIN PRN PRN Reason: TACHYCARDIA Stop: 12/04/24 12:09 Midazolam HCl (Midazolam Inj 1 Mg/Ml Vial 2 Ml) 1 mg IVP Q5MIN PRN PRN Reason: ANXIETY Stop: 12/04/24 12:08 Pantoprazole Sodium (Pantoprazole Inj 40 Mg Vial) 40 mg IVP QDAY [facility] Stop: 01/03/25 08:59 Last Admin: 12/07/24 08:48 Dose: 40 mg Permethrin (Permethrin Cr 5% 60 Gm Tube) 0 gm TOP X1 ONE Stop: 12/03/24 22:12 Last Admin: 12/04/24 05:15 Dose: Not Given Permethrin (Permethrin Cr 5% 60 Gm Tube) 0 gm TOP UD [facility] Stop: 01/03/25 12:29 Last Admin: 12/06/24 14:48 Dose: Not Given Pharmacy Consult (Vancomycin Pharmacy To Dose 1 Each Each) 1 each IV QDAY PRN PRN Reason: CONSULT Stop: 01/03/25 08:59 Assessment & Plan Plan 68-year-old female with significant past medical history of diabetes mellitus, hypertension, hyperlipidemia, asthma, CAD status post CABG, CVA, seizure disorder, osteomyelitis with left diabetic foot s/p amputation presented to the hospital with chief complaints of pain in the right foot found to have osteomyelitis status post amputation of the right second toe. ID consulted for IV antibiotic management. #Osteomyelitis Noted on imaging on admission. Status post amputation right second toe Poor historian and poorly controlled diabetes mellitus Patient to continue on IV antibiotics with ceftriaxone 2 g through PICC line until January 15. Weekly CBC, renal panel, and ESR during treatment with removal of PICC line at end of treatment. If no improvement in osteomyelitis recommend surgery follow-up. #PAD #Diabetes mellitus, type II #History of hypertension #History of CAD s/p CABG #History of CVA #History of seizures #History of asthma #Skin lesion #Pruritis Continue management per primary team Case discussed with attending Dr Christiana Ascencio MD PGY3
--- NOTE | 2024-12-07 19:36 | ESCONSULT_ITS ---
RE: JENARO ANTONY : 1955 DATE OF CONSULTATION: 12/07/2024 REFERRING PHYSICIAN: Dr. Lin. REASON FOR CONSULTATION: Osteomyelitis of the right foot. HISTORY OF PRESENT ILLNESS: The patient has presented with history of dementia. Other medical problems include diabetes, hypertension, hyperlipidemia, asthma, coronary artery disease, stroke, seizure disorder and prior problems with the left foot for which she underwent amputation of that foot years ago. The patient states she tripped and fell at home and had and infection of the right second toe and came to the hospital. She had an abscess drained by Dr. Garcia on 12/04/2024. Unfortunately, she also has osteomyelitis in the metatarsal, so she is going to need prolonged IV antibiotics. Her CRP is high. Glucose was high and so she is due diabetic control as well. Her other problems are as noted. No MRSA has been found, so she can probably skip the doxycycline. PAST SURGICAL HISTORY: Left foot surgery, hysterectomy in the past, left hip ORIF in 06/2024. Right foot surgery as noted. ALLERGIES: ASPIRIN, PENICILLIN AND ANOTHER MEDICATION. IMMUNIZATIONS: Last tetanus is not known. I do not get a history of prior COVID vaccine nor does she recall pneumococcal vaccination. FAMILY HISTORY: Positive for cancer in her mother and diabetes in her father. SOCIAL HISTORY: She lives with her son. Her daughter lives elsewhere, apparently far away. REVIEW OF SYSTEMS: Otherwise unremarkable. PHYSICAL EXAMINATION: GENERAL: She reports a history of dentures for 7 years. She reports a history of soem limited problems though some of these may be inaccurate. There is no report present. There is a peripheral IV in her arm. The right foot is wrapped. Please see surgical findings and operative notes and imaging reports for details. ASSESSMENT: 1. Apparent osteomyelitis of the right foot with prior infection of the left foot noted and prior amputation of the left foot in a Syme-type pattern. 2. Coronary artery disease. 3. Diabetes without known chronic kidney disease. RECOMMENDATIONS: 1. The patient should have 6 weeks of Rocephin through 01/15/2025. 2. Weekly CBC, renal panel, sed rate and PICC line are advised. If I need to, I can see her again Thursday, but may be rather brief and limited, but hopefully she will go home tomorrow on IV antibiotics. I will check on her again superficially on Thursday if she remains in house at that time. DT: 17:00:21 TT: 18:39:00 Ref: [id number] - TID: [id number] MTDD
[2024-12-07] MEDS: MORPHINE SULF INJ 10 MG/ML VIAL IVP (20:04)
[2024-12-07] MEDS: ATORVASTATIN CALCIUM 20 MG TABLET 40 MG PO (20:04)
[2024-12-07] MEDS: INSULIN GLARGINE (Lantus) 5 UNIT/0.05 ML (PER 5 UNITS) 12 UNIT SC (20:05)
[2024-12-08] VITALS: BP 126/65; PULSE 76; PULSE 82; RESP 21; TEMP 36.9; O2SAT 100
--- NOTE | 2024-12-08 | XR_ITS ---
Examination: Ultrasound-guided needle placement right basilic vein. Dual-lumen central line placement (PICC line). Fluoroscopy AP chest, portable, single view Exam date and time:December 08, 2024 0930 hours INDICATIONS: Diagnosis scabies, need for long-term intravenous antibiotic therapy A timeout was completed verifying correct patient, procedure, site, positioning Informed consent provided Technique: The patient's site was prepped and draped in sterile fashion. Maximum Sterile Barrier Technique used including cap, mask, sterile gown, sterile gloves, and sterile full body drape. If ultrasound technique used: sterile gel and sterile probe covers. Hand Hygiene performed using proper scrub, soap and water, or alcohol-based hand rub. Site right portable apparatus utilized to confirm patency of the right basilic vein Utilizing ultrasonographic guidance successful 21-gauge needle puncture into the right basilic vein Ultrasound images recorded and stored. 5 cc 1% lidocaine administered for local anesthetic. Successful micropuncture with a 21-gauge needle is performed. 0.18 wire guide is then introduced into the SVC under fluoroscopic guidance. Dual-lumen catheter dilator is then introduced, followed by the catheter in the SVC and proper position under fluoroscopic guidance. Successful aspiration of blood and flushing with heparinized saline is then performed in the 2 venous limbs. The catheter sutured in place. Findings: Under fluoroscopy, the tip of the catheter is in good position in the vena cava. Portable chest x-ray, post line placement is ordered. Estimated blood loss 3 cc The patient tolerated the procedure well and was in stable and satisfactory condition at completion of the procedure Impression: Successful ultrasound-guided needle placement right basilic vein Successful placement of dual lumen central line, percutaneous Fluoroscopy 0.1 minute radiation dose 0.65 milligray 1 spot fluoroscopic chest film. AP chest completion procedure demonstrates satisfactory position central line. May use central line.
[2024-12-08 04:00] VITALS: BP 133/64; PULSE 84; PULSE 85; PULSE 89; RESP 15; RESP 18; TEMP 36.8; O2SAT 100; O2SAT 97
[2024-12-08] MEDS: Calamine Lotion 120 ML BTL TOP ×3 (05:37→21:19)
[2024-12-08] MEDS: HEPARIN SOD INJ 5000 UNIT/ML VIAL SC ×3 (05:38→21:09)
[2024-12-08 05:49] VITALS: BMI 20.1
[2024-12-08 06:43] LABS: Basophils % (Auto) 1 % (0-2.5); Eosinophils # (Auto) 0.4 Thou/mm3 (0.0-0.5); Eosinophils % (Auto) 7 % (0-10); Hematocrit 27.4 % (36.0-46.0); Hemoglobin 9.6 g/dL (12.0-16.0); Immature Granulocytes % (Auto) 0 % (0-0); Immature Granulocytes Auto 0.01 Thou/mm3 (0.00-0.00); Lymphocytes % (Auto) 17 % (10-50); Mean Corpuscular Hemoglobin 29.6 pg (25.0-35.0); Mean Corpuscular Volume 85 fL (80-100); Monocytes # (Auto) 0.5 Thou/mm3 (0.0-0.8); Monocytes % (Auto) 8 % (0-12); Neutrophils # (Auto) 4.2 Thou/mm3 (1.8-7.7); Neutrophils % (Auto) 68 % (37-80); Nucleated Red Blood Cell % 0 /100 WBC (0); Platelet Count 209 Thou/mm3 (140-440); RDW Standard Deviation 43.7 fL (36.4-46.3); Red Blood Count 3.24 Miln/mm3 (4.00-5.20); White Blood Count 6.2 Thou/mm3 (3.6-11.0)
[2024-12-08 06:48] LABS: INR 0.9 (0.9-1.3); Partial Thromboplastin Time 39.5 Seconds (22.0-36.0); Prothrombin Time 10.4 Seconds (9.0-12.2)
[2024-12-08 06:52] LABS: Alanine Aminotransferase 15 U/L (10-49); Albumin, Serum 3.1 gm/dL (3.4-4.8); Albumin/Globulin Ratio 1.3 (1.2-2.2); Alkaline Phosphatase 116 U/L (46-116); Anion Gap 9 (7-16); Aspartate Amino Transferase 13 U/L (0-34); BUN/Creatinine Ratio 35 Ratio (12-20); Bilirubin,Total 0.2 mg/dL (0.3-1.2); Blood Urea Nitrogen 21 mg/dL (9-23); Calcium 8.2 mg/dL (8.3-10.6); Calcium (Corrected) 8.9 mg/dL (8.5-10.1); Carbon Dioxide 30.2 mMol/L (20.0-31.0); Chloride 102 mMol/L (98-107); Creatinine (Component) 0.6 mg/dL (0.6-1.3); Estimated Creatinine Clearance 79.1 mL/min (>60); Globulin 2.3 gm/dL (2.3-3.5); Glucose 249 mg/dL (74-106); Magnesium 1.9 mg/dL (1.6-2.6); Osmolality,Calculated 292 (275-295); Potassium 4.7 mMol/L (3.4-5.1); Sodium 141 mMol/L (136-145); Total Protein 5.4 gm/dL (5.7-8.2); eGFR > 60 See Note
[2024-12-08] MEDS: INSULIN LISPRO (AdmeLOG) 1 UNIT/0.01 ML UNIT 2 UNIT SC (07:40)
[2024-12-08] MEDS: HYDROcodone/APAP 5/325 TABLET 1 TAB PO ×2 (07:40→18:09)
[2024-12-08] MEDS: INSULIN LISPRO (AdmeLOG) 1 UNIT/0.01 ML UNIT SC ×2 (07:41→12:50)
[2024-12-08 08:00] VITALS: BP 150/84; PULSE 81; PULSE 85; RESP 17; TEMP 36.4; O2SAT 98
[2024-12-08] MEDS: DiphenhydrAMINE 25 MG CAPSULE PO ×2 (08:42→18:09)
[2024-12-08] MEDS: DOXYCYCLINE 100 MG TABLET PO (08:42)
[2024-12-08] MEDS: levETIRAcetam 250 MG TABLET 1000 MG PO ×2 (08:42→21:11)
[2024-12-08] MEDS: CLOPIDOGREL BISULFATE 75 MG TABLET PO (08:42)
[2024-12-08] MEDS: cefTRIAXone/D5w 2gm 2 GM/50 ML BAG IV (08:42)
[2024-12-08] MEDS: PANTOPRAZOLE 40 MG TABLET PO (08:42)
[2024-12-08] MEDS: ASPIRIN EC 81 MG TABEC PO (08:42)
--- NOTE | 2024-12-08 10:08 | PC.SS ---
Addendum entered and electronically signed by ROX Stevens 12/08/24 10:55: ACCOUNT RECEIVABLE ASSOCIATE received return call from patient's son, Jorge Comer; confirming that patient's discharge plan is to return home with home health. Original Note: ACCOUNT RECEIVABLE ASSOCIATE confirmed with patient that discharge plan is for the patient to return home with home health. ACCOUNT RECEIVABLE ASSOCIATE attempted phone contact with patient's son, Jorge Comer [phone]; to confirm discharge plan. No response. ACCOUNT RECEIVABLE ASSOCIATE left voicemail requesting return call.
--- NOTE | 2024-12-08 11:40 | ESDS_ITS ---
<Statement entered by Sathish Duffy MD - 12/08/24 21:53> I discussed with and supervised the video editing intern physician involved in the care of this patient. Patient assessment and plan was discussed with entire medicine team, including my attending. I agree with the assessment and plan as documented by video editing intern doctor. Patient care was discussed with my attending physician Dr.Tingle Sathish Duffy, PGY-2 Planned Discharge Date 12/08/24 DS: Providers Provider Date of admission: 12/03/24 21:05 Primary care physician: Renu Perkins NP Admitting Provider: Lei Lin MD Attending Provider on Admission: Kevin Mcintosh DO Consults: 12/03/24 17:58 Consult to General Surgery Stat Comment: Diabetic toe infection Consulting Provider: Destiny Chapin 12/04/24 07:26 Referral Wound Care Routine Comment: 12/04/24 13:35 Consult to Infectious Diseases Routine Comment: Right foot osteomyelitis Consulting Provider: Denver Villeda 12/05/24 08:42 Referral Registered Dietitian Routine Comment: low BMI, diabetic foot infection 12/05/24 15:08 Referral OP Wound Healing Dept Routine Comment: Instructions: Right great toe I&D, right 2nd toe amputation 12/05/24 18:01 Referral Physical Therapy Routine Comment: Physician Instructions: Attending Provider on DC: Nila Jasmine MD Discharging Provider: Nila Jasmine MD DS: Diagnosis Problem List Completed Was Problem List Reviewed/Reconciled?: Yes Hospital Course Hospital Course Hospital course: The patient is a 68-year-old female with past medical history of diabetes mellitus, hypertension, hyperlipidemia, asthma, CAD status post CABG, CVA, seizure disorder, osteomyelitis with left diabetic foot s/p amputation presented to the hospital 12/04/2024 with chief complaints of pain in the right foot and toe discoloration. She reported that she hit her toe a few days ago. Imaging showed osteomyelitis for which patient had amputation done of the right second t oe. Patient underwent amputation of the second toe of the right foot. She was also reported itching and her skin was covered with excoriations. She received permethrin. Workup was negative for scabies. Per ID recommendations, PICC line insertion was recommended for long course of antibiotics until 01/15. PICC line was placed on 12/08/2024, but patient pulled it out. Discharge was postponed, pend ing new PICC line placement. Plan of care discussed with attending Dr. Mcintosh, PGY-[address] Duffy. Nila Jasmine MD, PGY 1. Status at Discharge Overall status at discharge: patient is progressing back to baseline Time Spent with Patient Time attestation: Total time spent providing and/or coordinating discharge services: Time spent: Greater than 30 minutes Home Health Home Health Referral Orders: 12/08/24 08:21 Home Health Referral Routine Reason For Exam: debility Home-Bound The patient must either because of illness or injury, need the aid of supportive devices such as crutches, canes, wheelchairs, and walkers; the use of special transportation; or the assistance of another person in order to leave their place of residence; OR have a condition such that leaving his or her home is medically contraindicated. In addition, the patient also meets the following criteria: patient is normally unable to leave the home and leaving home requires considerable taxing effort. Addendum to Home Health Certification Practitioner's Certification: I certify that the patient has been under my care in the hospital and the care of attending physician (see below). We had a lkkz-[id number] encounter on (see date below). My clinical findings indicate that the patient is home bound per the above criteria and the Home Health Services noted in these orders are medically necessary. The primary reason for the [id number]-[id number] encounter is related to the fact that the patient requires home health serv ices. Date Certifying Ltrh-fc-[id number] Physician Encounter: 12/03/24 Physician's Name who will Assume Oversight for Services: Renu Perkins Physician's Phone No.who will Assume Oversight for Service: SLUDGE FILTRATION ATTENDANT - Community Resources: No PT to Evaluate: Yes PT to evaluate and provide a treatmnet plan to increase patient's mobility and strength. Wound Care: No IV Therapy: Yes IV Medication: ceftriaxone IV Dose: 2Gm IV Frequency: daily IV Stop Date: 01/15/25 Discontinue PICC Line Once Treatment Complete: Yes RN Safety Evaluation: Yes RN to evaluate and create a plan of care that will produce positive outcomes. Palliative Treatment: No Palliative treatment and evaluate the need for hospice. Home Health Aide - Personal Care: No Home Health Aide to assist with any ADL's. Exam Vital Signs Temp Pulse Resp BP Pulse Ox O2 Del Method 97.5 F 81 17 150/84 H 98 Room Air 12/08/24 08:00 12/08/24 08:00 12/08/24 08:00 12/08/24 08:00 12/08/24 08:00 12/08/24 08:00 Narrative Exam Gen: Well-developed and well-nourished. HEENT: NCAT, PERRLA, EOMI, MMM, anicteric conjunctivae. CVS: normal S1 and S2. RRR. Systolic 3/6 murmur in the right 2nd intercostal area. Resp: CTA B/L. No rhonchi, rales, crackles or wheezing. Abd: soft, non-tender, non-distended. BS+ in all 4 quadrants. MSK: Left metatarsal amputation, partial necrosis of big toe, gangrene of second toe with erythema. Scar on left upper extremity extending from axilla to the arm. Scar on right knee and right ankle. Multiple excoriations, interdigital scaly rash. Neuro: CN II-XII grossly intact. Strength 5/5 in BUE & BLE. Alert and oriented x2. Psych: appropriate mood and affect. Discharge Plan Plan Patient Disposition: Home w/HOME HEALTH Patient condition on transfer: Stable Care Plan Goals: Discharge recommendations: For your osteomyelitis (infection of the bone): - Follow-up with your PCP in 1 week - We have arranged a Home Health service for you to receive Ceftriaxone IV until 01/15 - For your bone infection, you need to receive Ceftriaxone 2g through your vein until 01/15 - You will need weekly labs (CBC, renal panel and ESR) while you receive Ceftriaxone IV - PICC line will be removed at the end of the treatment on 01/15 - If there's no improvement in your osteomyelitis (bone infection) after the treatment you will need a follow-up with surgery - Continue to follow up with wound care - Hold antihypertensives till a visit primary care provider or if blood pressure greater than 140/100 mmHg as blood pressure is within normal limits during the hospital stay without antihypertensives - Recommend to continue rest of the home medications as scheduled If you are interested, you can schedule a follow-up with PCP at the [facility]: [facility] [address] [place] [address] For your peripheral arterial disease: - Stop taking Atorvastatin 20 mg qday - Take Atorvastatin 40 mg - Continue the rest of your medication as prescribed - If your symptoms worsen come back to the ED or call 911 Weekly CBC, renal panel, and ESR during treatment with removal of PICC line at end of treatment. Dressing Change Home Care You have a wound that needs special care to heal.? Your body will make the new skin needed to close your wound, but you have to help.? Germs and old skin on the wound have to be removed.? This is done by changing the dressing on the wound as directed by your doctor. Wound:? Right great toe and right 2nd toe amputation site Supplies/Equipment (keep all supplies in one place clean and dry) o?? Normal Saline (salt water) solution.? You can make you own by boiling 2 cups of water with ? teaspoon of salt for 10 minutes.? Keep in a glass jar in the refrigerator and make a new batch every day. o?? Clean/Irrigate wound with ?normal saline or wound cleanser o?? Medication for wound: normal saline moistened gauze o?? Primary dressing ? o?? Secondary dressing: dry gauze and gauze roll o?? Tape o?? Gloves o?? Q-tips o?? Small trash bag o?? Other supplies Follow these instructions: 1.??? Wash your hands with soap and water. 2.??? Gather all your supplies and place on a clean towel or paper towel. 3.??? Put on gloves.- 4.??? Remove all of the old dressing (including gauze packing if any) and put in the trash bag. 5.??? Take off the gloves and put in trash bag. 6.??? If not using gloves wash your hands again or put on new gloves. 7.??? Irrigate wound with Normal saline. ?Place gauze in trash bag. 8.??? Right great toe and 2nd toe amputation site: moistened small gauze with normal saline and cover or pack wound until cavity deficit filled. Cover with dry gauze and secure with gauze roll. Change once daily and as needed for falling off or soiling. Ambulate using heel of foot only. Follow up with [facility], call [phone] for appointment. If active bleeding occurs, apply tight dressing and return to MD or ER. ? Notify primary doctor or return to Emergency Room if any of the following: ? Fever above 100.6? F. ? Increased pain ? Increase swelling ? Red streaks around your wound ? Drainage becomes foul smelling or changes color ? The wound is larger or deeper ? The wound looks dried out or dark ? Bleeding that does not stop with holding pressure Special Instructions Follow up with [facility], [address] [place] [address]. Call [phone] for appointment. Prescriptions/Referrals Prescriptions/Med Rec: New atorvastatin 20 mg Tablet 40 mg PO HS 30 Days Qty: 60 0RF Continued clopidogrel [Plavix] 75 mg Tablet 75 mg PO QDAY isosorbide mononitrate 60 mg Tablet Extended Release 24 Hr 60 mg PO QDAY aspirin 81 mg tablet,delayed release (DR/EC) 81 mg PO QAM Patient Comments: TAKE ONE TABLET BY MOUTH EVERY DAY IN THE MORNING acetaminophen 500 mg capsule 1,000 mg PO Q6H PRN (Reason: fever or pain) Qty: 30 0RF levetiracetam 1,000 mg tablet 1,000 mg PO BID Qty: 60 0RF metformin 1,000 mg tablet 1,000 mg PO BID Qty: 60 0RF Held lisinopril 10 mg tablet 10 mg PO QDAY 30 Days Qty: 30 2RF Hold Instructions: Resume on 12/28/24. Hold till patient see her PCP or if BP>140/100 metoprolol succinate 50 mg capsule,guero,ER 24hr 50 mg PO QDAY Qty: 30 0RF Hold Instructions: Resume on 12/28/24. Hold the medication till u see PCP or if BP >140/100 Discontinued atorvastatin 20 mg Tablet 20 mg PO HS Referrals: Renu Perkins, PROBATE PARALEGAL [Primary Care Provider] - Patient/Caregiver Discharge Instructions Education Materials: Nutrition for Wound Healing, PAD, Changing Dressing Dc, Caring for Your PICC Dc, Wound Care Dc, Discharge Instructions Wound ..., Preventing Surgical Site Infections, Diabetes PAD Print Language: Hebrew Stand Alone Forms: Duyen Award Info., Patient Portal Info Letter Discharge Order Discharge Orders: Discharge (Routine); Ordered 12/09/24 Ordered By: Angel Kennedy Quality Discharge Quality Measures VTE prophylaxis Attestestation MD Attestation Pt not discharged as expected, see progress note
[2024-12-08 12:00] VITALS: BP 118/55; PULSE 80; RESP 18; TEMP 36.2; O2SAT 98
--- NOTE | 2024-12-08 12:06 | PC.CC ---
Addendum entered by Shiv Neff RN 12/08/24 14:39: during bed meeting, Dr. Mcintosh informed me that pt pulled out picc line. Pt is unable to be discharged today. Informed [facility] and [facility] through [employer]. Addendum entered by Shiv Neff RN 12/08/24 13:46: spoke to [facility] and asked if they can see the pt tomorrow. [facility] stated they can accommodate the pt. for tomorrow. Reached out to [facility], they will deliver the medications today. Addendum entered by Shiv Neff RN 12/08/24 12:46: [facility] both accepted the pt. Booked both. Original Note: HH referral sent to HH agencies and [facility] on [employer]. Awaiting responses. Pending start of care date.
[2024-12-08] MEDS: INSULIN LISPRO (AdmeLOG) 1 UNIT/0.01 ML UNIT 3 UNIT SC ×2 (12:50→17:34)
[2024-12-08] MEDS: ACETAMINOPHEN 325 MG TABLET 650 MG PO (12:51)
--- NOTE | 2024-12-08 14:00 | PC.NURSE ---
Patient pulled picc line out, Patient states that she was itching and didn't realize that she pulled it out. Hemostasis achieved, scant bleeding. No bruising.
[2024-12-08 16:00] VITALS: BP 125/69; PULSE 79; PULSE 83; RESP 20; TEMP 36.1; O2SAT 97
--- NOTE | 2024-12-08 16:23 | ESPR_ITS ---
<Statement entered by Sathish Duffy MD - 12/08/24 21:52> I discussed with and supervised the customer operations intern physician involved in the care of this patient. Patient assessment and plan was discussed with entire medicine team, including my attending. I agree with the assessment and plan as documented by customer operations intern doctor. Patient care was discussed with my attending physician Dr.Tingle Sathish Duffy, PGY-2 Documentation for date of: 12/08/24 Subjective Subjective Interval history: Patient was seen and examined by the bedside. No acute overnight events. Patient is asking for more food, was provided with additional meals. Insulin regimen was adjusted. Per ID recommendations, PICC line insertion was recommended for long course of antibiotics until 01/15. PICC line was placed on 12/08/2024, but patient pulled it out. Discharge was postponed, pending new PICC line placement. Anticipate discharge in 24 hours home with home health. Exam Vital Signs Temp Pulse Resp BP Pulse Ox O2 Del Method 97.2 F 80 18 118/55 L 98 Room Air 12/08/24 12:00 12/08/24 12:00 12/08/24 12:00 12/08/24 12:00 12/08/24 12:12/08/24 08:00 Narrative Exam Gen: Well-developed and well-nourished. HEENT: NCAT, PERRLA, EOMI, MMM, anicteric conjunctivae. CVS: normal S1 and S2. RRR. Systolic 3/6 murmur in the right 2nd intercostal area. Resp: CTA B/L. No rhonchi, rales, crackles or wheezing. Abd: soft, non-tender, non-distended. BS+ in all 4 quadrants. MSK: Left metatarsal amputation, partial necrosis of big toe, gangrene of second toe with erythema. Scar on left upper extremity extending from axilla to the arm. Scar on right knee and right ankle. Multiple excoriations, interdigital scaly rash. Neuro: CN II-XII grossly intact. Strength 5/5 in BUE & BLE. Alert and oriented x2. Psych: appropriate mood and affect. Objective Labs 12/08/24 04:10 12/08/24 04:10 Labs: Laboratory Results - last 24 hr 12/08/24 04:10 WBC 6.2 RBC 3.24 L Hgb 9.6 L Hct 27.4 L MCV 85 MCH 29.6 MCHC 35.0 RDW Std Deviation 43.7 Plt Count 209 Neut % (Auto) 68 Lymph % (Auto) 17 [place] % (Auto) 8 Eos % (Auto) 7 Baso % (Auto) 1 Neut # (Auto) 4.2 Lymph # (Auto) 1.0 [place] # (Auto) 0.5 Eos # (Auto) 0.4 Baso # (Auto) 0.0 Immature Gran # (Auto) 0.01 H Absolute Nucleated RBC 0.00 Immature Gran % 0 Nucleated RBC % 0 PT 10.4 INR 0.9 APTT 39.5 H Sodium 141 Potassium 4.7 Chloride 102 Carbon Dioxide 30.2 Anion Gap 9 BUN 21 Creatinine 0.6 Estim Creat Clear Calc 79.1 eGFR > 60 BUN/Creatinine Ratio 35 H Glucose 249 H D Calculated Osmolality 292 Calcium 8.2 L Corrected Calcium 8.9 Phosphorus 3.0 Magnesium 1.9 Total Bilirubin 0.2 L AST 13 ALT 15 Alkaline Phosphatase 116 Total Protein 5.4 L Albumin 3.1 L Globulin 2.3 Albumin/Globulin Ratio 1.3 Quality Measures Quality Measures VTE prophylaxis Advance care planning discussed with:: other Assessment & Plan Assessment Current Active Medications: Generic Name Dose Route Start Last Admin Trade Name Freq PRN Reason Stop Dose Admin Acetaminophen 650 mg 12/04/24 16:34 12/08/24 12:51 Acetaminophen 325 Mg Tablet PO 01/02/25 21:04 650 mg Q6H PRN Administration Fever >100.3 or pain 1-3 Hydrocodone Bitart/Acetaminophen 1 tab 12/07/24 19:56 12/08/24 07:40 Hydrocodone/Apap 5/325 Tablet PO 12/11/24 08:05 1 tab Q6H PRN Administration Pain 4-10 Albuterol/Ipratropium 3 ml 12/04/24 14:11 Albuterol/Ipratropium (Duoneb) Rt Mere 3 Ml Nebu INH 01/03/25 14:10 Q2HR PRN SHORTNESS OF BREATH OR WHEEZE Aspirin 81 mg 12/05/24 09:15 12/08/24 08:42 Aspirin Ec 81 Mg Tabec PO 01/04/25 09:14 81 mg QDAY HARPER Administration Atorvastatin Calcium 40 mg 12/04/24 21:00 12/07/24 20:04 Atorvastatin Calcium 20 Mg Tablet PO 01/03/25 20:59 40 mg HS HARPER Administration Calamine 0 ml 12/06/24 14:00 12/08/24 14:48 Calamine Lotion 120 Ml Btl TOP 01/05/25 13:59 120 ml TID HARPER Administration Clopidogrel Bisulfate 75 mg 12/05/24 09:30 12/08/24 08:42 Clopidogrel Bisulfate 75 Mg Tablet PO 01/04/25 09:29 75 mg QDAY HARPER Administration Dextrose 25 ml 12/03/24 21:10 Dextrose 50%-Water Inj 50 Ml Syringe IV 01/02/25 21:09 Q15MIN PRN BG 50-70 responsive npo pt Dextrose 50 ml 12/03/24 21:10 Dextrose 50%-Water Inj 50 Ml Syringe IV 01/02/25 21:09 Q15MIN PRN BG <50 OR BG <70 & pt unresponsive Diphenhydramine HCl 25 mg 12/06/24 11:38 12/08/24 08:42 Diphenhydramine 25 Mg Capsule PO 01/05/25 11:37 25 mg Q6HR PRN Administration ITCHING Glucagon 1 mg 12/03/24 21:10 Glucagon Inj 1 Mg Vial IM Q15MIN PRN BG <70, and no IV access Heparin Sodium (Porcine) 5,000 unit 12/05/24 14:00 12/08/24 14:48 Heparin Sod Inj 5000 Unit/Ml Vial SC 12/19/24 13:59 5,000 unit Q8HR HARPER Administration Ceftriaxone Sodium/Dextrose 2 gm in 50 mls @ 100 mls/hr 12/04/24 09:00 12/08/24 08:42 Rocephin/D5w 2gm IV 12/11/24 06:24 100 mls/hr QDAY HARPER Administration Insulin Glargine 16 unit 12/08/24 21:00 Insulin Glargine (Lantus) 5 Unit/0.05 Ml (Per 5 Units) SC 01/07/25 20:59 HS HARPER Insulin Human Lispro 0 unit 12/06/24 12:15 12/08/24 12:50 Insulin Lispro (Admelog) 1 Unit/0.01 Ml Unit SC 01/05/25 12:14 3 unit ACHS HARPER Administration Protocol Insulin Human Lispro 3 unit 12/08/24 11:30 12/08/24 12:50 Insulin Lispro (Admelog) 1 Unit/0.01 Ml Unit SC 01/07/25 11:29 3 unit AC HARPER Administration Levetiracetam 1,000 mg 12/04/24 09:00 12/08/24 08:42 Levetiracetam 250 Mg Tablet PO 01/03/25 08:59 1,000 mg BID HARPER Administration Ondansetron HCl 4 mg 12/03/24 21:05 Ondansetron Inj 2 Mg/Ml Inj 2 Ml IVP 01/02/25 21:04 Q6H PRN NAUSEA OR VOMITING Protocol Pantoprazole Sodium 40 mg 12/08/24 09:00 12/08/24 08:42 Pantoprazole 40 Mg Tablet PO 01/07/25 08:59 40 mg QDAY HARPER Administration Protocol Polyethylene Glycol 17 gm 12/07/24 08:02 Polyethylene Glycol 17 Gm Packet PO 01/06/25 08:59 QDAY PRN constipation Sennosides 1 tab 12/07/24 08:02 Senna Tablet PO 01/06/25 08:01 QDAY PRN CONSTIPATION Protocol Plan A 68-year-old female with significant past medical history of diabetes mellitus, hypertension, hyperlipidemia, Asthma, CAD status post CABG, CVA, seizure disorder, ?osteomyelitis, left diabetic foot s/p amputation presented to the hospital with chief complaints of pain in the right foot since 2 days and admitted in the hospital for diabetic foot, gangrene and osteomyelitis of right foot #Osteomyelitis of right distal and proximal phalanx of IVth foot digit #IInd toe gangrene #Ist toe partial necrosis #Diabetic foot infection Presented to the hospital with chief complaints of blackish discoloration of right foot Denies fever, other associated symptoms Reported that she had previous history of osteomyelitis for which she underwent left foot amputation Labs at the time of admission are significant for elevated CRP, 4 and glucose 311 X-ray right foot showed osteomyelitis of distal fourth metatarsal and proximal phalanx fourth digit. 12/04/24: patient underwent 2nd toe amputaion and big toe necrotic tissue excision. Plan: - ID specialist was consulted - Ceftriaxone and n [12/04-current] - vancomycin 12/04-6 - Doxycycline 12/07-12/08 discontinued - Wound culture grew MSSA - blood cultures negative after 48 hours - ID consulted, appreciate recs #PAD LE Dopper showed severe PAD which is contributing to the foot infection. Plan: - atorvastatin 40 mg qday #Diabetes mellitus, type II Patient is using oral medications at home A1c is 6.8 in 12/04: A1c 7.2% Plan: - Insulin sliding scale - Glargine 9 units at bedtime - Lispri 2U TID with meals - Hypoglycemia protocol in place #History of hypertension Patient does not remember the name of the medications Plan: - Will monitor blood pressures for now and add medications as needed #History of CAD s/p CABG #History of CVA Plan: - resumed aspirin 81 mg qday - resumed plavix 75 mg qday - Medication reconciliation #History of seizures Plan: - Medication reconciliation is ordered -Levetiracetam 1000 mg p.o. twice daily #History of asthma Patient reported that she had history of asthma, currently stable Plan: -Duoneb inhalations as needed #Skin lesion #Pruritis Patient reports feeling itchy, multiple body excoriations, interdigital rash. Denies recent antibiotics use. High suspicion for scabies. According to son, she usually has pruritus after mosquito bites. Son denies itchiness of other home residents. Plan: - calamine lotion as needed for itchiness - benadryl as needed Hospital Maintenance: Dispo: medsurg DVT ppx: heparin 5000 U sc q8hr GI ppx: Protonix Diet: carbohydrate consistent IV lines: Peripheral Code status: Full code Plan of care discussed with attending Dr. Mcintosh and PGY-2 Dr. Duffy. Nila Jasmine MD, PGY 1. Attending Provider Attestation/Addendum I have discussed and was present for the essential components of the history, physical examination, diagnosis, and treatment plan with the resident. I agree with the patient's care as documented by the resident and amended herein by me. Jamir Mcintosh DO. Patient seen and evaluated this AM. No acute events overnight, vital signs stable, patient afebrile overnight. He still has complaints of I am hungry and still has numerous excoriations on her arms, per her son this is insect bites, we initially thought this may be scabies however has been ruled out. Still continuing Benadryl for the patient. We did consult ID who recommended ceftriaxone until 01/15 for osteomyelitis of the fourth distal metatarsal secondary to diabetic foot infection of her right foot now status post I&D and second toe amputation. PICC line was placed today however patient's arm itched and she thought this was the cause and decided to pull it out. We have ordered a new PICC line for tomorrow, per ID oral antibiotic should not be considered in this patient. Home health has been set up, can consider discharge tomorrow after new PICC line inserted. Her son has been updated who she lives with. Although this document has been carefully reviewed, there may still be some phonetic and other typographical errors. These errors are purely grammatical due to imperfections in the software program and should not be construed in any way to compromise the substance of the patient's medical care during this visit.
--- NOTE | 2024-12-08 17:11 | PC.SS ---
Rounding Note: Patient obtained PICC line. Patient has subsequently pulled out PICC line. Dr. Villeda is consulting.
[2024-12-08 20:00] VITALS: BP 132/70; PULSE 81; PULSE 83; RESP 12; TEMP 36.6; O2SAT 99
[2024-12-08] MEDS: INSULIN GLARGINE (Lantus) 5 UNIT/0.05 ML (PER 5 UNITS) 16 UNIT SC (21:10)
[2024-12-08] MEDS: ATORVASTATIN CALCIUM 20 MG TABLET 40 MG PO (21:11)
[2024-12-09] VITALS (11 sets, daily range): BP systolic 93–137; BP diastolic 60–76; PULSE 51–80; RESP 12–21; TEMP 35.8–36.9; O2SAT 93–100; BMI 20.4
[2024-12-09 05:28] LABS: Basophils # (Auto) 0.1 Thou/mm3 (0.0-0.2); Basophils % (Auto) 1 % (0-2.5); Eosinophils # (Auto) 0.5 Thou/mm3 (0.0-0.5); Eosinophils % (Auto) 9 % (0-10); Hematocrit 29.9 % (36.0-46.0); Immature Granulocytes % (Auto) 0 % (0-0); Immature Granulocytes Auto 0.01 Thou/mm3 (0.00-0.00); Lymphocytes # (Auto) 1.2 Thou/mm3 (1.0-4.8); Lymphocytes % (Auto) 23 % (10-50); Mean Corpuscular HGB Conc 33.4 g/dl (31.0-37.0); Mean Corpuscular Hemoglobin 28.9 pg (25.0-35.0); Mean Corpuscular Volume 86 fL (80-100); Monocytes # (Auto) 0.5 Thou/mm3 (0.0-0.8); Monocytes % (Auto) 9 % (0-12); Neutrophils # (Auto) 3.1 Thou/mm3 (1.8-7.7); Neutrophils % (Auto) 58 % (37-80); Nucleated Red Blood Cell % 0 /100 WBC (0); Platelet Count 207 Thou/mm3 (140-440); RDW Standard Deviation 45.1 fL (36.4-46.3); Red Blood Count 3.46 Miln/mm3 (4.00-5.20); White Blood Count 5.3 Thou/mm3 (3.6-11.0)
[2024-12-09 05:51] LABS: Alanine Aminotransferase 30 U/L (10-49); Albumin, Serum 3.3 gm/dL (3.4-4.8); Albumin/Globulin Ratio 1.3 (1.2-2.2); Alkaline Phosphatase 110 U/L (46-116); Anion Gap 6 (7-16); Aspartate Amino Transferase 43 U/L (0-34); BUN/Creatinine Ratio 37 Ratio (12-20); Bilirubin,Total 0.2 mg/dL (0.3-1.2); Blood Urea Nitrogen 22 mg/dL (9-23); Calcium 8.6 mg/dL (8.3-10.6); Calcium (Corrected) 9.2 mg/dL (8.5-10.1); Carbon Dioxide 33.7 mMol/L (20.0-31.0); Chloride 103 mMol/L (98-107); Creatinine (Component) 0.6 mg/dL (0.6-1.3); Estimated Creatinine Clearance 79.1 mL/min (>60); Globulin 2.5 gm/dL (2.3-3.5); Glucose 141 mg/dL (74-106); Magnesium 1.7 mg/dL (1.6-2.6); Osmolality,Calculated 290 (275-295); Phosphorous 3.8 mg/dL (2.4-5.1); Potassium 4.7 mMol/L (3.4-5.1); Sodium 143 mMol/L (136-145); Total Protein 5.8 gm/dL (5.7-8.2); eGFR > 60 See Note
[2024-12-09] MEDS: HEPARIN SOD INJ 5000 UNIT/ML VIAL SC (05:55)
[2024-12-09] MEDS: Calamine Lotion 120 ML BTL TOP (05:55)
[2024-12-09] MEDS: INSULIN LISPRO (AdmeLOG) 1 UNIT/0.01 ML UNIT 3 UNIT SC ×2 (07:46→11:56)
[2024-12-09] MEDS: INSULIN LISPRO (AdmeLOG) 1 UNIT/0.01 ML UNIT SC ×2 (07:47→11:56)
[2024-12-09] MEDS: HYDROcodone/APAP 5/325 TABLET 1 TAB PO ×2 (07:47→14:37)
[2024-12-09] MEDS: cefTRIAXone/D5w 2gm 2 GM/50 ML BAG IV (08:25)
[2024-12-09] MEDS: levETIRAcetam 250 MG TABLET 1000 MG PO (08:26)
[2024-12-09] MEDS: CLOPIDOGREL BISULFATE 75 MG TABLET PO (08:26)
[2024-12-09] MEDS: PANTOPRAZOLE 40 MG TABLET PO (08:26)
[2024-12-09] MEDS: ASPIRIN EC 81 MG TABEC PO (08:26)
--- NOTE | 2024-12-09 10:20 | PD.IDPROG ---
Subjective Subjective Interval history: labs as noted. on rx a1c 7.2 noted. dm II, a1c 7.2. Exam Vital Signs Temp Pulse Resp BP Pulse Ox O2 Del Method 98.1 F 80 18 129/61 99 Room Air 12/09/24 10:06 12/09/24 10:19 12/09/24 10:19 12/09/24 10:19 12/09/24 10:19 12/09/24 10:19 Narrative Exam no change in rx advised at this time w/u for dementia per primary team will see again prn. ok for rocephin 1 gm iv daily alone thru 01/15 can see again in hospital only, please do weekly cbc, renal panel, esr on iv rx and remove line at end of rx no need to f/u with id. see primary and podiatry in f/u Objective - Internal Medicine Labs 12/09/24 04:45 12/09/24 04:45 Labs: Laboratory Results - last 24 hr 12/09/24 04:45 WBC 5.3 RBC 3.46 L Hgb 10.0 L Hct 29.9 L MCV 86 MCH 28.9 MCHC 33.4 RDW Std Deviation 45.1 Plt Count 207 Neut % (Auto) 58 Lymph % (Auto) 23 [place] % (Auto) 9 Eos % (Auto) 9 Baso % (Auto) 1 Neut # (Auto) 3.1 Lymph # (Auto) 1.2 [place] # (Auto) 0.5 Eos # (Auto) 0.5 Baso # (Auto) 0.1 Immature Gran # (Auto) 0.01 H Absolute Nucleated RBC 0.00 Immature Gran % 0 Nucleated RBC % 0 Sodium 143 Potassium 4.7 Chloride 103 Carbon Dioxide 33.7 H Anion Gap 6 L BUN 22 Creatinine 0.6 Estim Creat Clear Calc 79.1 eGFR > 60 BUN/Creatinine Ratio 37 H Glucose 141 H D Calculated Osmolality 290 Calcium 8.6 Corrected Calcium 9.2 Phosphorus 3.8 Magnesium 1.7 Total Bilirubin 0.2 L AST 43 H ALT 30 Alkaline Phosphatase 110 Total Protein 5.8 Albumin 3.3 L Globulin 2.5 Albumin/Globulin Ratio 1.3 Assessment & Plan A&P Narrative osteo of rt foot. proximal to are of surgery prior infection of L foot. s/p extensive surgery cad with prior cabg noted ? hx of Ca. no port noted. pt not a great historian. may have had neuro impairment due to cva hx ok for rocephin 2 gm iv daily thru 01/15 with picc and weekly cbc, renal panel, esr and line removal at end of rx. if unsuccessful, then look at surgery as circulation to feet often impaired.no mrsa, so likely can avoid the doxy in her case. Time Spent With Patient Time: Total time spent is greater than 50% in coordination of care (as documented) at patient's floor/unit and/or counseling patient:
[2024-12-09] MEDS: DiphenhydrAMINE 25 MG CAPSULE PO (11:59)
--- NOTE | 2024-12-09 11:59 | PC.NURSE ---
Patient alert and oriented to place, time, person, and situation. Patient able to independently answer questions to determine orientation. Patient asked to sign her own consent stating i know i need the line for my medicine so i can go home . Patient able to state purpose of line and state that she agrees to have it. Son notified of patient decision and ability to sign for herself at this time.
--- NOTE | 2024-12-09 13:00 | PC.SS ---
Addendum entered by ROX Li 12/09/24 14:38: SS update: [facility] to see the patient tomorrow 12/10/24. Patient to d/c home today. Original Note: SS update; patient ready to be d/c home. Transfer nurse Damion aware of d/c orders, informs she will follow up with HH agencies to identify if patient has a SOC date to be d/c home.
--- NOTE | 2024-12-09 13:10 | PC.CC ---
Addendum entered by Shiv Neff RN 12/09/24 18:46: [address] Herrera pt can be discharged and [facility] will see the pt tomorrow and [facility] has delivered the meds yesterday. Addendum entered by Shiv Neff RN 12/09/24 13:18: Kalina from [facility] responded on [employer] that they can see the pt tomorrow. Addendum entered by Shiv Neff RN 12/09/24 13:16: called Kalina with [facility] regarding start of care date. Unable to reach her. Pending call back. Addendum entered by Shiv Neff RN 12/09/24 13:12: Melissa from [facility] confirmed, meds were delivered yesterday. Original Note: informed me that pt got picc line today and is ready for DC. Picc line report sent to [facility] and [facility]. Waiting response.
--- NOTE | 2024-12-09 13:34 | ESDS_ITS ---
<Statement entered by Kerri Dallas DO - 12/14/24 07:30> I, Kerri Dallas DO, attest that I was physically present for the montez portions of the service and evaluated the patient with the resident and I reviewed and discussed the case with the resident and agree with the resident's findings and plans of care as documented above <Statement entered by Sathish Duffy MD - 12/13/24 23:53> I discussed with and supervised the general internal medicine doctor physician involved in the care of this patient. Patient assessment and plan was discussed with entire medicine team, including my attending. I agree with the assessment and plan as documented by general internal medicine doctor doctor. Patient care was discussed with my attending physician Dr. Celena Duffy, PGY-2 Planned Discharge Date 12/09/24 DS: Providers Provider Date of admission: 12/03/24 21:05 Primary care physician: Renu Perkins NP Admitting Provider: Lei Lin MD Attending Provider on Admission: Kevin Mcintosh DO Consults: 12/03/24 17:58 Consult to General Surgery Stat Comment: Diabetic toe infection Consulting Provider: Destiny Chapin 12/04/24 07:26 Referral Wound Care Routine Comment: 12/04/24 13:35 Consult to Infectious Diseases Routine Comment: Right foot osteomyelitis Consulting Provider: Denver Villeda 12/05/24 08:42 Referral Registered Dietitian Routine Comment: low BMI, diabetic foot infection 12/05/24 15:08 Referral OP Wound Healing Dept Routine Comment: Instructions: Right great toe I&D, right 2nd toe amputation 12/05/24 18:01 Referral Physical Therapy Routine Comment: Physician Instructions: Attending Provider on DC: Angel Kennedy MD Discharging Provider: Angel Kennedy MD DS: Diagnosis Problem List Completed Was Problem List Reviewed/Reconciled?: Yes Hospital Course Hospital Course Hospital course: A 68-year-old female with significant past medical history of diabetes mellitus, hypertension, hyperlipidemia, Asthma, dementia, CAD status post CABG, CVA, seizure disorder, ?osteomyelitis, left diabetic foot s/p amputation presented to the hospital with chief complaints of pain in the right foot since 2 days and admitted in the hospital for diabetic foot, osteomyelitis of the right fourth metatarsal and proximal phalanx of the fourth digit Hospital course: Vitals at the time of admission are significant for blood pressure 88/54 mmHg, temperature 95.9 ?F Labs are significant for glucose 311, CRP 4, procalcitonin 0.06. Right foot x-ray showed osteomyelitis of distal fourth metatarsal and proximal phalanx fourth digit. A1c is 6.2. General surgeon, Dr. Miranda did drainage of abscess of the right big toe and amputation of right second toe at metatarsophalangeal level in the procedure went uneventful. Patient was treated with vancomycin during the hospital stay. Infectious disease specialist, Dr Villeda was consulted in view of osteomyelitis and he recommended Rocephin 2 g IV daily till 01/15 3 with PICC line. Patient underwent PICC line insertion on 12/08/2024, but unfortunately patient pulled out PICC line on the same night because of itchiness and another PICC line was placed on 12/09/2024 Patient was found to have rash, which was itchy all over the body for which she was treated with permethrin, Benadryl and calamine lotion. Son of the patient claimed that the rash is due to mosquito bite. Patient is discharged to home with home health with the following medications and recommendations For your osteomyelitis (infection of the bone): - Follow-up with your PCP in 1 week - We have arranged a Home Health service for you to receive Ceftriaxone IV until 01/15 - For your bone infection, you need to receive Ceftriaxone 2g through your vein until 01/15 - You will need weekly labs (CBC, renal panel and ESR) while you receive Ceftriaxone IV - PICC line will be removed at the end of the treatment on 01/15 - If there's no improvement in your osteomyelitis (bone infection) after the treatment you will need a follow-up with surgery - Continue to follow up with wound care - Hold antihypertensives till a visit primary care provider or if blood pressure greater than 140/100 mmHg as blood pressure is within normal limits during the hospital stay without antihypertensives - Recommend to continue rest of the home medications as scheduled If you are interested, you can schedule a follow-up with PCP at the [facility]: [facility] [address] [place] [address] For your peripheral arterial disease: - Stop taking Atorvastatin 20 mg qday - Take Atorvastatin 40 mg - Continue the rest of your medication as prescribed - If your symptoms worsen come back to the ED or call 911 Weekly CBC, renal panel, and ESR during treatment with removal of PICC line at end of treatment. #Osteomyelitis of right distal and proximal phalanx of IVth foot digit #IInd toe gangrene #Ist toe partial necrosis #Diabetic foot infection #PAD #Diabetes mellitus, type II #History of hypertension #History of CAD s/p CABG #History of CVA #History of seizures #History of asthma #Skin lesion #Pruritis Patient plan of care was discussed with the attending physician, Dr. Dallas and senior resident Dr. Tati Kennedy, PGY1 Time Spent with Patient Time attestation: Total time spent providing and/or coordinating discharge services: Time spent: Greater than 30 minutes Home Health Home Health Referral Orders: 12/08/24 08:21 Home Health Referral Routine Reason For Exam: debility Home-Bound The patient must either because of illness or injury, need the aid of supportive devices such as crutches, canes, wheelchairs, and walkers; the use of special transportation; or the assistance of another person in order to leave their place of residence; OR have a condition such that leaving his or her home is medically contraindicated. In addition, the patient also meets the following criteria: patient is normally unable to leave the home and leaving home requires considerable taxing effort. Addendum to Home Health Certification Practitioner's Certification: I certify that the patient has been under my care in the hospital and the care of attending physician (see below). We had a [id number] encounter on (see date below). My clinical findings indicate that the patient is home bound per the above criteria and the Home Health Services noted in these orders are medically necessary. The primary reason for the knzh-aw-[id number] encounter is related to the fact that the patient requires home health services. Date Certifying Yjaz-ng-Syxo Physician Encounter: 12/03/24 Physician's Name who will Assume Oversight for Services: Renu Perkins Physician's Phone No.who will Assume Oversight for Service: MANAGER INSURANCE - Community Resources: No PT to Evaluate: Yes PT to evaluate and provide a treatmnet plan to increase patient's mobility and strength. Wound Care: Yes Home Health RN - Wound Care Order: See wound care notes IV Therapy: Yes IV Medication: ceftriaxone IV Dose: 2Gm IV Frequency: daily IV Stop Date: 01/15/25 Discontinue PICC Line Once Treatment Complete: Yes RN Safety Evaluation: Yes RN to evaluate and create a plan of care that will produce positive outcomes. Palliative Treatment: No Palliative treatment and evaluate the need for hospice. Home Health Aide - Personal Care: No Home Health Aide to assist with any ADL's. Exam Vital Signs Temp Pulse Resp BP Pulse Ox O2 Del Method 96.5 F L 76 16 93/64 100 Room Air 12/09/24 11:56 12/09/24 11:56 12/09/24 11:56 12/09/24 11:56 12/09/24 11:56 12/09/24 11:56 Narrative Exam Gen: Well-developed and well-nourished. HEENT: NCAT, PERRLA, EOMI, MMM, anicteric conjunctivae. CVS: normal S1 and S2. RRR. Systolic 3/6 murmur in the right 2nd intercostal area. Resp: CTA B/L. No rhonchi, rales, crackles or wheezing. Abd: soft, non-tender, non-distended. BS+ in all 4 quadrants. MSK: Left metatarsal amputation, partial necrosis of big toe, gangrene of second toe with erythema. Scar on left upper extremity extending from axilla to the arm. Scar on right knee and right ankle. Multiple excoriations, interdigital scaly rash. Neuro: CN II-XII grossly intact. Strength 5/5 in BUE & BLE. Alert and oriented x2. Psych: appropriate mood and affect. Discharge Plan Plan Patient Disposition: Home w/HOME HEALTH Patient condition on transfer: Stable Care Plan Goals: Discharge recommendations: For your osteomyelitis (infection of the bone): - Follow-up with your PCP in 1 week - We have arranged a Home Health service for you to receive Ceftriaxone IV until 01/15 - For your bone infection, you need to receive Ceftriaxone 2g through your vein until 01/15 - You will need weekly labs (CBC, renal panel and ESR) while you receive Ceftriaxone IV - PICC line will be removed at the end of the treatment on 01/15 - If there's no improvement in your osteomyelitis (bone infection) after the treatment you will need a follow-up with surgery - Continue to follow up with wound care - Hold antihypertensives till a visit primary care provider or if blood pressure greater than 140/100 mmHg as blood pressure is within normal limits during the hospital stay without antihypertensives - Recommend to continue rest of the home medications as scheduled If you are interested, you can schedule a follow-up with PCP at the [facility]: [facility] [address] [place] [address] For your peripheral arterial disease: - Stop taking Atorvastatin 20 mg qday - Take Atorvastatin 40 mg - Continue the rest of your medication as prescribed - If your symptoms worsen come back to the ED or call 911 Weekly CBC, renal panel, and ESR during treatment with removal of PICC line at end of treatment. Dressing Change Home Care You have a wound that needs special care to heal.? Your body will make the new skin needed to close your wound, but you have to help.? Germs and old skin on the wound have to be removed.? This is done by changing the dressing on the wound as directed by your doctor. Wound:? Right great toe and right 2nd toe amputation site Supplies/Equipment (keep all supplies in one place clean and dry) o?? Normal Saline (salt water) solution.? You can make you own by boiling 2 cups of water with ? teaspoon of salt for 10 minutes.? Keep in a glass jar in the refrigerator and make a new batch every day. o?? Clean/Irrigate wound with ?normal saline or wound cleanser o?? Medication for wound: normal saline moistened gauze o?? Primary dressing ? o?? Secondary dressing: dry gauze and gauze roll o?? Tape o?? Gloves o?? Q-tips o?? Small trash bag o?? Other supplies Follow these instructions: 1.??? Wash your hands with soap and water. 2.??? Gather all your supplies and place on a clean towel or paper towel. 3.??? Put on gloves.- 4.??? Remove all of the old dressing (including gauze packing if any) and put in the trash bag. 5.??? Take off the gloves and put in trash bag. 6.??? If not using gloves wash your hands again or put on new gloves. 7.??? Irrigate wound with Normal saline. ?Place gauze in trash bag. 8.??? Right great toe and 2nd toe amputation site: moistened small gauze with normal saline and cover or pack wound until cavity deficit filled. Cover with dry gauze and secure with gauze roll. Change once daily and as needed for falling off or soiling. Ambulate using heel of foot only. Follow up with [facility], call [phone] for appointment. If active bleeding occurs, apply tight dressing and return to MD or ER. ? Notify primary doctor or return to Emergency Room if any of the following: ? Fever above 100.6? F. ? Increased pain ? Increase swelling ? Red streaks around your wound ? Drainage becomes foul smelling or changes color ? The wound is larger or deeper ? The wound looks dried out or dark ? Bleeding that does not stop with holding pressure Special Instructions Follow up with [facility], [address] [place] [address]. Call [phone] for appointment. Prescriptions/Referrals Prescriptions/Med Rec: New atorvastatin 20 mg Tablet 40 mg PO HS 30 Days Qty: 60 0RF Continued clopidogrel [Plavix] 75 mg Tablet 75 mg PO QDAY isosorbide mononitrate 60 mg Tablet Extended Release 24 Hr 60 mg PO QDAY aspirin 81 mg tablet,delayed release (DR/EC) 81 mg PO QAM Patient Comments: TAKE ONE TABLET BY MOUTH EVERY DAY IN THE MORNING acetaminophen 500 mg capsule 1,000 mg PO Q6H PRN (Reason: fever or pain) Qty: 30 0RF levetiracetam 1,000 mg tablet 1,000 mg PO BID Qty: 60 0RF metformin 1,000 mg tablet 1,000 mg PO BID Qty: 60 0RF Held lisinopril 10 mg tablet 10 mg PO QDAY 30 Days Qty: 30 2RF Hold Instructions: Resume on 12/28/24. Hold till patient see her PCP or if BP>140/100 metoprolol succinate 50 mg capsule,sprinkle,ER 24hr 50 mg PO QDAY Qty: 30 0RF Hold Instructions: Resume on 12/28/24. Hold the medication till u see PCP or if BP >140/100 Discontinued atorvastatin 20 mg Tablet 20 mg PO HS Referrals: Renu Perkins EDITOR PRODUCER [Primary Care Provider] - Patient/Caregiver Discharge Instructions Education Materials: Nutrition for Wound Healing, PAD, Changing Dressing Dc, Caring for Your PICC Dc, Wound Care Dc, Discharge Instructions Wound ..., Preventing Surgical Site Infections, Diabetes PAD Print Language: Macedonian Stand Alone Forms: Duyen Award Info., Patient Portal Info Letter Discharge Order Discharge Orders: Discharge (Routine); Ordered 12/09/24 Ordered By: Angel Kennedy Quality Discharge Quality Measures VTE prophylaxis
--- NOTE | 2024-12-09 13:55 | XR_ITS ---
Examination: Ultrasound-guided needle placement right basilic vein. Dual-lumen central line placement (PICC line). Fluoroscopy AP chest, portable, single view INDICATIONS: Scabies, need for long-term intravenous antibiotic therapy Exam date and time:December 09, 2024 0958 hours A timeout was completed verifying correct patient, procedure, site, positioning Informed consent provided Technique: The patient's site was prepped and draped in sterile fashion. Maximum Sterile Barrier Technique used including cap, mask, sterile gown, sterile gloves, and sterile full body drape. If ultrasound technique used: sterile gel and sterile probe covers. Hand Hygiene performed using proper scrub, soap and water, or alcohol-based hand rub. Ultrasound utilized to confirm patency of the right basilic vein Utilizing ultrasonographic guidance successful 21-gauge needle placement into the right basilic vein Ultrasound images recorded and stored. 5 cc 1% lidocaine administered for local anesthetic. Successful micropuncture with a 21-gauge needle is performed. 0.18 wire guide is then introduced into the SVC under fluoroscopic guidance. Dual-lumen catheter dilator is then introduced, followed by the catheter in the SVC and proper position under fluoroscopic guidance. Successful aspiration of blood and flushing with heparinized saline is then performed in the 2 venous limbs. The catheter sutured in place. Findings: Under fluoroscopy, the tip of the catheter is in good position in the vena cava. Portable chest x-ray, post line placement is ordered. Estimated blood loss 3 cc The patient tolerated the procedure well and was in stable and satisfactory condition at completion of the procedure Impression: Successful ultrasound-guided needle placement right basilic vein Successful placement of dual lumen central line, percutaneous Fluoroscopy 0.4 minute radiation dose 1.58 milligray 1 spot fluoroscopic chest film. AP chest completion procedure demonstrates satisfactory position central line. May use central line.
--- NOTE | 2024-12-09 15:43 | PC.NURSE ---
Patient piv removed, picc left in place. Extensive instruction given for picc care and s/s to look for. Dressing demonstated for family. Discharge instructions given to patient and son. Patient belongings given. Additional supplies for dressing given. Home health care spoke with and schedule appt with son for 12/10/2024 at 0800.
== END 2024-12-09 15:39 | disposition home health service (06) | DRG 617 ==
LOC: SERX 21:26 → SERHOLD 22:46 → S2NX 12-04 08:20 → SERHOLD 12-05 06:23 → S2NX 12-05 06:24
PROVIDERS: Nurse Practitioner Family; Surgery; Admitting Provider Student in an Organized Health Care Education/Training Program; Emergency Provider Emergency Medicine; PCP Nurse Practitioner Family; Visit Provider Student in an Organized Health Care Education/Training Program
PROC: (CPT 28820; principal; 2024-12-04 09:00)
DX: E11.69 Type 2 diabetes mellitus with other specified complication (principal); E11.52 Type 2 diabetes mellitus with diabetic peripheral angiopathy with gangrene; M86.8X7 Other osteomyelitis, ankle and foot; L03.115 Cellulitis of right lower limb; L02.611 Cutaneous abscess of right foot; I25.10 Atherosclerotic heart disease of native coronary artery without angina pectoris; J45.909 Unspecified asthma, uncomplicated; B86 Scabies; E78.5 Hyperlipidemia, unspecified; B95.61 Methicillin susceptible Staphylococcus aureus infection as the cause of diseases classified elsewhere; E11.22 Type 2 diabetes mellitus with diabetic chronic kidney disease; E11.610 Type 2 diabetes mellitus with diabetic neuropathic arthropathy; E11.621 Type 2 diabetes mellitus with foot ulcer; G40.909 Epilepsy, unspecified, not intractable, without status epilepticus; H91.90 Unspecified hearing loss, unspecified ear; I12.9 Hypertensive chronic kidney disease with stage 1 through stage 4 chronic kidney disease, or unspecified chronic kidney disease; L03.031 Cellulitis of right toe; Z88.0 Allergy status to penicillin; N18.9 Chronic kidney disease, unspecified; W57.XXXA Bitten or stung by nonvenomous insect and other nonvenomous arthropods, initial encounter; Y92.009 Unspecified place in unspecified non-institutional (private) residence as the place of occurrence of the external cause; Z79.02 Long term (current) use of antithrombotics/antiplatelets; I35.0 Nonrheumatic aortic (valve) stenosis; E11.628 Type 2 diabetes mellitus with other skin complications; F03.90 Unspecified dementia, unspecified severity, without behavioral disturbance, psychotic disturbance, mood disturbance, and anxiety; Z79.4 Long term (current) use of insulin; Z79.82 Long term (current) use of aspirin; Z86.73 Personal history of transient ischemic attack (TIA), and cerebral infarction without residual deficits; Z89.432 Acquired absence of left foot; Z90.710 Acquired absence of both cervix and uterus; Z95.1 Presence of aortocoronary bypass graft; Z95.5 Presence of coronary angioplasty implant and graft; L29.9 Pruritus, unspecified
CPT/HCPCS: 36415; 73630; 80053; 80061; 80202; 83036; 83605; 83735; 84100; 84145; 84443; 85025; 85610; 85652; 85730; 86140; 87040; 87070; 87075; 87077; 87186; 87205; 87811; 93925; 96365; 96367; 97162; 99285; A4217; A4649; C1751; C1894; G0378; J0696; J1644; J1815; J2250; J2270; J2371; J2470; J2704; J2795; J3370; J3372; J3475; J7050; S0077; A9270; J0737

== ENCOUNTER 2024-12-11 23:21 | Emergency (ER) | payer MEDICARE, MEDICAID, SELFPAY ==
[2024-12-11 23:25] VITALS: BP 150/72; PULSE 76; RESP 18; TEMP 36.8; O2SAT 98
[2024-12-11 23:26] VITALS: PULSE 79; RESP 14; O2SAT 99; BMI 24.5
[2024-12-11 23:34] VITALS: BP 145/101; RESP 14; TEMP 37; O2SAT 99
--- NOTE | 2024-12-11 23:44 | PD.EDSKIN ---
ED Skin Abcess FB-RME/HPI General Chief complaint: General Adult/Misc Complain Stated complaint: PICC LINE FELL OUT Time Seen by Provider: 12/11/24 23:42 Arrival date/time: 12/11/24 23:21 RME / HPI RME / HPI narrative: This section includes all my notes and documentations, including HPI, PE, and ED course. Cl Perez MD HPI: 69 y/o female with recent Hx of right toe amputation, Osteomyelitis, and Diabetes Mellitus Type 2 BIBA from home s/p accidentally pulling out her PICC line x just PRESIDING JUDGE. Patient is currently on Rocephin due to her infection. No other complaints. ROS: All negative except as documented in HPI. Physical Exam: General: Alert and oriented. No acute distress when remaining still. Eyes: Conjunctivae and lids clear. ENT: No nasal congestion. Neck: Supple. Heart: RRR. Lungs: No respiratory distress. Good air movement. No significant rhonchi, wheezing, rales. Abdomen: Soft and nontender. Skin: Warm and dry. Neuro: Alert and oriented X 3. I reviewed EMS notes. At this point, diagnoses include: Occluded PICC line. Treatment here included: Ativan to help her sleep and Tylenol w/ Codeine for pain. Consult order entered for PICC line placement by our IR. Signed-out to Dr. Rodriguez at 6 AM. Cl Perez MD Related Data Home Medications ?Medication ?Instructions ?Recorded ?Confirmed clopidogrel 75 mg tablet (Plavix) 75 mg PO QDAY 10/31/19 04/23/21 isosorbide mononitrate 60 mg 60 mg PO QDAY 10/31/19 04/23/21 tablet,extended release 24 hr aspirin 81 mg tablet,delayed 81 mg PO QAM 04/23/21 04/23/21 release Previous Rx's ?Medication ?Instructions ?Recorded acetaminophen 500 mg capsule 1,000 mg (2 x 500 mg) PO Q6H PRN 05/17/21 fever or pain #30 caps lisinopril 10 mg tablet 10 mg PO QDAY 30 days #30 tabs 11/19/22 Held on 12/09/24. Instructions: Resume on 12/28/24. Hold till patient see her PCP or if BP>140/100 levetiracetam 1,000 mg tablet 1,000 mg PO BID #60 tabs 05/08/24 metformin 1,000 mg tablet 1,000 mg PO BID #60 tabs 05/08/24 metoprolol succinate 50 mg capsule 50 mg PO QDAY #30 ea 05/08/24 sprinkle, ext. release 24 hr Held on 12/09/24. Instructions: Resume on 12/28/24. Hold the medication till u see PCP or if BP >140/100 atorvastatin 20 mg tablet 40 mg (2 x 20 mg) PO HS 30 days 12/08/24 #60 tabs Allergies Allergy/AdvReac Type Severity Reaction Status Date / Time lettuce Allergy Severe SWELLING Verified 12/03/24 14:18 Penicillins Allergy Severe HIVES AND Verified 12/03/24 14:18 RESPIRATORY PROBLEMS shellfish derived Allergy Severe Rash Verified 12/03/24 14:18 adhesive Allergy Mild Blister Verified 12/03/24 14:18 iodine Allergy Mild RASH AND Verified 12/03/24 14:18 BLISTERS jaramillo pepper (green pepper) Allergy Unknown RASH, Verified 12/03/24 14:18 SWELLING, SORE TONGUE egg Allergy Unknown RASH Verified 12/03/24 14:18 Review of Systems Review of Systems Systems Reviewed: All systems reviewed, normal except as documented Past Medical History Past Medical History NEUROLOGIC: Positive Neurological Disorders, Cerebrovascular Accident, Transient Ischemic Attacks (TIA) and Seizures CARDIAC: Positive Cardiac Disorders, Myocardial Infarction, Angina, Atherosclerotic Heart Disease, Hypercholesterolemia, Edema and Hypertension RESPIRATORY: Positive Asthma GASTROINTESTINAL: Positive Gastrointestinal Disorders, Gastroesophageal Reflux Disease and Obesity MUSCULOSKELETAL: Positive Musculoskeletal Disorders, Arthritis, Degenerative Joint Disease and Osteomyelitis ENDOCRINE: Positive Endocrine Disorders and Diabetes Mellitus Type 2 PSYCHO/SOCIAL: Positive Depression OTHER HISTORY: Positive Hospitalization, Falls, Blood Transfusions, Chemotherapy and Cancer Family History FAMILY HISTORY: Positive Family Respiratory Disorders, Family Cardiac Disorders, Family Cancer and Family Surgery Surgical History SURGICAL: Positive Cardiac Surgery, Coronary Artery Bypass Graft, Joint Replacement and Hysterectomy ED Exam Narrative Physical exam: Refer to HPI Course Quality Measures none Orders Category Date Time Status IR PICC repo/replace periphera Stat Exams 12/12/24 Ordered BMP [Basic Metabolic Panel] Stat Lab 12/12/24 04:38 Ordered CBC Stat Lab 12/12/24 04:38 Ordered CRP [C-Reactive Protein] Stat Lab 12/12/24 04:38 Ordered ESR [Sed Rate (ESR)] Stat Lab 12/12/24 04:38 Ordered Lactate (Lactic Acid) Stat Lab 12/12/24 04:38 Ordered Liver Panel Stat Lab 12/12/24 04:38 Ordered Magnesium Stat Lab 12/12/24 04:38 Ordered Procalcitonin Stat Lab 12/12/24 04:38 Ordered UA, C/S IF [Urinalysis, C/S if Indicated] Stat Lab 12/12/24 04:39 Ordered ACETAMINOPHEN w/COD 300-30 [Tylenol w/Cod #3] Med 12/12/24 01:50 Discontinued 2 tab PO X1 ONE LORazepam [Ativan] Med 12/11/24 23:42 Discontinued 1 mg PO X1 ONE Vital Signs Vital signs: Vital Signs Temperature 98.2 F 12/11/24 23:25 Pulse Rate 76 12/11/24 23:25 Respiratory Rate 18 12/11/24 23:25 Blood Pressure 150/72 H 12/11/24 23:25 Pulse Oximetry (%) 98 12/11/24 23:25 Oxygen Delivery Method Room Air 12/11/24 23:25 Skin / Abscess / Foreign Body MDM Narrative MDM Narrative:: Scribe Attestation: INan, beth scribing for and in the presence of Dr. Perez. Provider Notation: Although this document has been carefully reviewed, there may still be some phonetic and other typographical errors.? These errors are purely grammatical due to imperfections in the software program and should not be construed in any way to? compromise the substance of the patient's medical care during this visit. 69 y/o female with recent Hx of right toe amputation, Osteomyelitis, and Diabetes Mellitus Type 2 BIBA from home s/p accidentally pulling out her PICC line x just PRESIDING JUDGE. Patient is currently on Rocephin due to the infection on her right foot. Rocephin is administered 3 times per day in the morning, 1 PM, and 6 PM. Patient lives at home with her son. Patient is allergic to Penicillin and Betadine. No other complaints. Patient data External records reviewed:: [facility] previous records (Reviewed prior ED records from 12/03/24. Patient was seen for Diabetic foot infection.) and EMS form Clinical information provided by:: patient Social determinants that could affect healthcare access:: none Patient has the following chronic illnesses:: Cerebrovascular Accident, Transient Ischemic Attacks, Seizures, Angina, Atherosclerotic Heart Disease, Hypercholesterolemia, Edema, Hypertension, Asthma, Gastroesophageal Reflux Disease, Obesity, Arthritis, Degenerative Joint Disease, Osteomyelitis, Diabetes Mellitus Type 2, Depression How is presenting disease/condition affected by chronic disease/condition?: uneffected by Evaluation data The following diagnostics were reviewed and interpreted by me:: other (specify) (N/A) Lab and/or radiology exams considered but not ordered:: None Interpretation Summary: N/A Medications / Prescriptions Medications or Prescriptions considered but not ordered:: None Medication administrations:: Medication Administration History Discontinued Medications Acetaminophen/Codeine Phosphate (Acetaminophen W/Cod 300-30 Tablet) 2 tab PO X1 ONE Stop: 12/12/24 01:51 Last Admin: 12/12/24 02:12 Dose: 2 tab Documented By: CHAN Lorazepam (Lorazepam 0.5 Mg Tablet) 1 mg PO X1 ONE Stop: 12/11/24 23:43 Last Admin: 12/12/24 00:28 Dose: 1 mg Documented By: CHAN Ativan, Tylenol w/ Codeine Consultations Consultation(s) initiated? (list below): No Diagnosis Skin/Abscess Differential Diagnosis: other (PICC line displacement) Most likely diagnosis given after review of the tests above:: PICC line displacement Admission Indicated Admission indicated?: not indicated Explain why admission is indicated or not indicated:: Pending PICC line replacement. Admission Request Was there a request for admission?: No Disposition Plan Disposition Plan: other (specify) (Sign-out to Dr. Rodriguez at 6 AM.) Discharge Plan Prescriptions/Referrals Prescriptions/Med Rec: No Action clopidogrel [Plavix] 75 mg Tablet 75 mg PO QDAY isosorbide mononitrate 60 mg Tablet Extended Release 24 Hr 60 mg PO QDAY aspirin 81 mg tablet,delayed release (DR/EC) 81 mg PO QAM Patient Comments: TAKE ONE TABLET BY MOUTH EVERY DAY IN THE MORNING acetaminophen 500 mg capsule 1,000 mg PO Q6H PRN (Reason: fever or pain) Qty: 30 0RF lisinopril 10 mg tablet 10 mg PO QDAY 30 Days Qty: 30 2RF levetiracetam 1,000 mg tablet 1,000 mg PO BID Qty: 60 0RF metoprolol succinate 50 mg capsule,sprinkle,ER 24hr 50 mg PO QDAY Qty: 30 0RF metformin 1,000 mg tablet 1,000 mg PO BID Qty: 60 0RF atorvastatin 20 mg Tablet 40 mg PO HS 30 Days Qty: 60 0RF Referrals: No Primary/Family,Physician [Primary Care Provider] - In 1 week Problem List Clinical Impression: Displacement of peripherally inserted central catheter (PICC) Patient/Caregiver Discharge Instructions Print Language: Danish
[2024-12-12] VITALS (8 sets, daily range): BP systolic 137–171; BP diastolic 66–105; PULSE 65–70; RESP 14–18; TEMP 36.7–37; O2SAT 96–100
[2024-12-12] MEDS: LORazepam 0.5 MG TABLET 1 MG PO (00:28)
[2024-12-12] MEDS: ACETAMINOPHEN w/COD 300-30 TABLET 2 TAB PO (02:12)
[2024-12-12 04:55] LABS: Lactate (Lactic Acid) 1.3 mMol/L (0.4-2.0)
[2024-12-12 04:57] LABS: Basophils % (Auto) 1 % (0-2.5); Eosinophils # (Auto) 0.4 Thou/mm3 (0.0-0.5); Eosinophils % (Auto) 8 % (0-10); Hematocrit 29.2 % (36.0-46.0); Hemoglobin 9.9 g/dL (12.0-16.0); Immature Granulocytes % (Auto) 0 % (0-0); Immature Granulocytes Auto 0.01 Thou/mm3 (0.00-0.00); Lymphocytes # (Auto) 1.2 Thou/mm3 (1.0-4.8); Lymphocytes % (Auto) 23 % (10-50); Mean Corpuscular HGB Conc 33.9 g/dl (31.0-37.0); Mean Corpuscular Hemoglobin 28.9 pg (25.0-35.0); Mean Corpuscular Volume 85 fL (80-100); Monocytes # (Auto) 0.4 Thou/mm3 (0.0-0.8); Monocytes % (Auto) 8 % (0-12); Neutrophils # (Auto) 3.1 Thou/mm3 (1.8-7.7); Neutrophils % (Auto) 60 % (37-80); Nucleated Red Blood Cell % 0 /100 WBC (0); Platelet Count 196 Thou/mm3 (140-440); RDW Standard Deviation 43.5 fL (36.4-46.3); Red Blood Count 3.43 Miln/mm3 (4.00-5.20); White Blood Count 5.2 Thou/mm3 (3.6-11.0)
[2024-12-12 05:09] LABS: Sed Rate (ESR) 55 mm/hr (0-30)
[2024-12-12 05:31] LABS: Alanine Aminotransferase 83 U/L (10-49); Albumin, Serum 3.3 gm/dL (3.4-4.8); Alkaline Phosphatase 136 U/L (46-116); Anion Gap 5 (7-16); BUN/Creatinine Ratio 52 Ratio (12-20); Bilirubin,Direct < 0.1 mg/dL (0.0-0.3); Bilirubin,Total 0.2 mg/dL (0.3-1.2); Blood Urea Nitrogen 31 mg/dL (9-23); C-Reactive Protein 2.8 mg/dL (0.0-0.9); Calcium 8.9 mg/dL (8.3-10.6); Carbon Dioxide 34.6 mMol/L (20.0-31.0); Chloride 103 mMol/L (98-107); Creatinine (Component) 0.6 mg/dL (0.6-1.3); Magnesium 1.5 mg/dL (1.6-2.6); Potassium 4.4 mMol/L (3.4-5.1); Procalcitonin 0.06 ng/ml (0.0-0.49); Sodium 143 mMol/L (136-145); Total Protein 5.7 gm/dL (5.7-8.2); eGFR > 60 See Note
[2024-12-12 05:46] LABS: Osmolality,Calculated 309 (275-295)
[2024-12-12 06:04] LABS: Glucose 428 mg/dL (74-106)
--- NOTE | 2024-12-12 08:05 | PD.EDADDENDU ---
Emergency Room Addendum Addendum Narrative: 0600: Care assumed from Dr. Perez, the previous shift emergency physician. Past medical, surgical, social and family history reviewed. Vitals and home medications reviewed. I will assume the care of the patient at this time, pending IR for PICC line placement. Please refer to the emergency department record for history and examination from initial visit.?The following addendum documentation note is intended to reflect any pending information, findings, or radiology results not included in the patient?s initial chart. 1445: I was asked by the nurse to evaluate rash. On examination, patient had a diffuse papular rash with some areas of excoriation mostly on the back and abdomen but also on legs and arms. Rash most likely drug related and will change antibiotics, give Solumedrol IV, and itch medication. The scabies contact precautions have been removed. Notified by manager social work that the patient has been accepted at [facility], pending PICC line placement scheduled for tomorrow 12/13/2024. 1800: Care signed out to Dr. Grey. Results and treatment plan discussed. They will assume the care of the patient at this time, pending PICC line placement.
--- NOTE | 2024-12-12 08:12 | PC.NURSE ---
Received report from Heaven LAZARO and assumed care of patient. Patient resting in bed and scratching. Meal tray given and patient eating.
--- NOTE | 2024-12-12 14:43 | PC.CC ---
Addendum entered by Neha Azul 12/13/24 11:56: [facility] contacted [facility] for a follow up on the AUTH for transport. p/u eta 1500 Addendum entered by Neha Azul 12/13/24 10:14: [facility] is arranged Trip Reservation #[id number]. [facility] will contact [facility] and provide them the AUTH for the transport. Pt will be going [facility]. [facility] stated there is a 2 h our wait for ER d/c regarding transportation and pt is on que. Addendum entered by Neha Azul 12/13/24 10:10: CORRECTION: pT WILL BE GOING TO [facility] Addendum entered by Neha Azul 12/12/24 18:19: Pts son Jorge Comer [phone] called and would like an update on the pt. Pts son also wants to know if the pt is receiving her antibiotics and if her dressing on ther amputation has been changed, as he stated when he saw her earlier, her dressing had not been changed. Pts son would like to speak to assigned RN. Addendum entered by Neha Azul 12/12/24 18:01: [facility] IS COMPLETED LEVEL 1 AND LEVAL II MH EVALUATION REFERRAL IS NOT REQUIRED. RESULTS ARE IN PTS CHART. Addendum entered by Neha Azul 12/12/24 17:55: Claudio THURMAN, pts son and pts met with ghost writer and requested that the PICC line be removed as pt continues to remove the PICC line. However, SNFs are not accepting as if a IV preferal is placed, the pt will need the IV replaced every 3 days in which SNFs cannot accomodate. [facility] ([facility] accepted pending PICC line insert. Pt will have the PICC line placed back in tomorrow morning per ER provider. ER provider is aware. Pts son agrees to PICC line insert [facility] [phone] accepts pending PICC line insert on 12/13/24. Original Note: ASW SUBMITTED VIA [facility] FOR SNF PLACEMENT. OF THIS WRITING, NO ACCEPTING SNF
[2024-12-12 17:20] LABS: Collection Type, Urine Clean Catch
[2024-12-12 17:32] LABS: Bilirubin,Urine Negative (Negative); Blood,Urine Negative (Negative); Clarity,Urine Clear (Clear/Hazy); Color,Urine Colorless (Lt Yel-Yel); Culture Indicated,Urine Not Indicated; Glucose, Urine Negative (Negative); Ketones,Urine Negative (Negative); Leukocyte Esterase,Urine Negative (Negative); Nitrite,Urine Negative (Negative); Protein,Urine Negative (Neg - Trace); RBC,Urine 2 /hpf (0-3); Specific Gravity,Urine 1.005 (1.001-1.035); Squamous Epithelial Cell,Urine < 1 /hpf (0-5); Urobilinogen,Urine Negative mg/dL (0.0-1.0); WBC,Urine 1 /hpf (0-5)
--- NOTE | 2024-12-12 18:47 | PD.EDADDENDU ---
Emergency Room Addendum Addendum Narrative: 1800: Care assumed from Dr. Rodriguez the previous shift emergency physician. Past medical, surgical, social and family history reviewed. Vitals and home medications reviewed. Results and treatment plan discussed. I will assume the care of the patient at this time and will follow the patient, pending PICC line placement tomorrow. Please refer to the emergency department record for history and examination from initial visit. Patient has remained stable while under my care. 0600: Care signed out to Dr. Rodriguez (emergency physician). Past medical, surgical, social and family history reviewed. Vitals and home medications reviewed. Results and treatment plan discussed. They will assume the care of the patient at this time and will follow the patient, pending PICC line placement.
[2024-12-12] MEDS: hydrOXYzine HCL 10 MG TABLET PO (19:43)
[2024-12-12] MEDS: MethylPREDNISolone SOD SUCC 62.5 MG/ML 2ML VIAL 125 MG IVP (19:43)
--- NOTE | 2024-12-12 23:39 | PC.NURSE ---
Jorge called, update given. Inquiring on when pt will get a bed.
[2024-12-13] VITALS (11 sets, daily range): BP systolic 108–181; BP diastolic 64–97; PULSE 16–91; RESP 12–18; TEMP 36.6–36.9; O2SAT 99–100
--- NOTE | 2024-12-13 | XR_ITS ---
Examination: Ultrasound-guided needle placement right basilic vein. Dual-lumen central line placement (PICC line). Fluoroscopy AP chest, portable, single view Exam date and time:December 13, 2024 0938 hours INDICATIONS: Need for long-term intravenous antibiotic therapy A timeout was completed verifying correct patient, procedure, site, positioning Informed consent provided Technique: The patient's site was prepped and draped in sterile fashion. Maximum Sterile Barrier Technique used including cap, mask, sterile gown, sterile gloves, and sterile full body drape. If ultrasound technique used: sterile gel and sterile probe covers. Hand Hygiene performed using proper scrub, soap and water, or alcohol-based hand rub. Ultrasound utilized to confirm patency of the right basilic vein Utilizing ultrasonographic guidance successful 21-gauge needle puncture into the right basilic vein. Ultrasound images recorded and stored. 5 cc 1% lidocaine administered for local anesthetic. Successful micropuncture with a 21-gauge needle is performed. 0.18 wire guide is then introduced into the SVC under fluoroscopic guidance. Dual-lumen catheter dilator is then introduced, followed by the catheter in the SVC and proper position under fluoroscopic guidance. Successful aspiration of blood and flushing with heparinized saline is then performed in the 2 venous limbs. The catheter sutured in place. Findings: Under fluoroscopy, the tip of the catheter is in good position in the vena cava. Portable chest x-ray, post line placement is ordered. Estimated blood loss 3 cc The patient tolerated the procedure well and was in stable and satisfactory condition at completion of the procedure Impression: Successful ultrasound-guided needle placement right basilic vein Successful placement of dual lumen central line, percutaneous Fluoroscopy 0.6 minutes radiation dose 2.68 milligray 1 spot fluoroscopic chest film. AP chest completion procedure demonstrates satisfactory position central line. May use central line.
--- NOTE | 2024-12-13 05:28 | PC.NURSE ---
complete linen change, jaun care, new pure wick and brief. repostitioned pt to left semi fowlers position. vs taken
--- NOTE | 2024-12-13 06:57 | PD.EDADDENDU ---
Emergency Room Addendum Addendum Narrative: 0600: Care assumed from Dr. Grey, the previous shift emergency physician. Past medical, surgical, social and family history reviewed. Vitals and home medications reviewed. I will assume the care of the patient at this time, pending PICC line placement. Please refer to the emergency department record for history and examination from initial visit.?The following addendum documentation note is intended to reflect any pending information, findings, or radiology results not included in the patient?s initial chart. 1030: Patient has returned from PICC line placement. At this time pending transfer to SNF. EMS p/u @ 16:00. 1605: EMS here to transfer patient. She has remained stable through ED course and was transferred in stable condition.
--- NOTE | 2024-12-13 08:15 | PC.NURSE ---
Patient in er room 19, patient awaiting PICC line insertion today, patient alert and oriented to person, no place, h/o dementia, able to follow commands, skin is cool dry and slightly palor. Patient eating breakfast, wound noted to right foot, wound consult placed, and dressing removed, open to air, Call light within reach, patient has no other needs at this time.
--- NOTE | 2024-12-13 08:46 | PC.WOUND ---
Spoke with Susana RN regarding wound, recommendations given for NS, iodoform packing with dry cover dressing daily. Discharge instructions updated. Referral placed to [facility] as outpatient. Also see wound hydro station operator
[2024-12-13] MEDS: INSULIN HUM REGULAR 1 UNIT/0.01 ML (PER UNIT) 4 UNIT SC (09:08)
[2024-12-13] MEDS: amLODIPine BESYLATE 5 MG TABLET PO (09:08)
--- NOTE | 2024-12-13 09:20 | PC.NURSE ---
Jocelin from IR here to take patient for procedure.
[2024-12-13] MEDS: HEPARIN SOD LOCK SYR 100 UNIT/ML 500 UNIT IV (10:00)
[2024-12-13] MEDS: LIDOCAINE INJ PF 1% 30 ML VIAL INFL (10:04)
--- NOTE | 2024-12-13 10:38 | PC.NURSE ---
Report received from Jocelin LAZARO in IR, patient, PICC line insertion to right brachial by Julia Wheeler flushed with Heparin saline and ok to use per Dr. Dumont. Patient tolerated procedure well., No redness nor swelling noted to site,
--- NOTE | 2024-12-13 10:40 | PC.NURSE ---
patient transfered back to room 19 in ER. bedside report given to radha salazar. dressing is clean dry and intact. coband wrap around picc line site to prevent patient from pulling.
--- NOTE | 2024-12-13 10:53 | PC.OT ---
Called pharmacy to bring metformin to er not in our pyxis,
[2024-12-13] MEDS: INSULIN HUM REGULAR 1 UNIT/0.01 ML (PER UNIT) 8 UNIT SC (10:55)
[2024-12-13] MEDS: metFORMIN 500 MG TABLET 750 MG PO (11:22)
[2024-12-13] MEDS: hydrOXYzine HCL 25 MG TABLET PO (14:26)
[2024-12-13] MEDS: MethylPREDNISolone SOD SUCC 62.5 MG/ML 2ML VIAL 125 MG IVP (14:26)
[2024-12-13] MEDS: ACETAMINOPHEN IVPB 1,000 MG/100 ML VIAL 250 MG IV (14:26)
== END 2024-12-13 16:34 | disposition skilled nursing facility (03) ==
PROVIDERS: Emergency Provider Emergency Medicine
DX: T82.524A Displacement of infusion catheter, initial encounter (principal); Y84.8 Other medical procedures as the cause of abnormal reaction of the patient, or of later complication, without mention of misadventure at the time of the procedure
CPT/HCPCS: 36573; 36415; 80048; 80076; 81001; 83605; 83735; 84145; 85025; 85652; 86140; 96365; 96372; 96375; 99284; C1751; C1894; J0131; J1642; J1815; J2919; J3490; J7050; A9270

== ENCOUNTER 2025-02-17 22:14 | Emergency (ER) | payer MEDICARE, MEDICAID, SELFPAY ==
[2025-02-17 22:19] VITALS: BP 174/97; PULSE 78; RESP 17; TEMP 36.7; O2SAT 96; O2SAT 98; BMI 21.2
--- NOTE | 2025-02-17 22:41 | PD.EDSEIZ ---
ED Seizures RME/HPI General Chief Complaint: Seizure Stated Complaint: SEIZURES Time Seen by Provider: 02/17/25 22:35 Arrival date/time: 02/17/25 22:14 RME / HPI RME / HPI Narrative: DR. RICHTER MAIN ED EVALUATION: 69 y/o female with Hx of Seizures, TIA, CVA, and HTN BIBA presents to ED c/o headache s/p seizure-like activity x just [employer]. Patient is supposed to be on Keppra 1,000 mg daily. She lives at home with her son. No other concerns or complaints expressed at this time. Related Data Home Medications ?Medication ?Instructions ?Recorded ?Confirmed clopidogrel 75 mg tablet (Plavix) 75 mg PO QDAY 10/31/19 04/23/21 isosorbide mononitrate 60 mg 60 mg PO QDAY 10/31/19 04/23/21 tablet,extended release 24 hr aspirin 81 mg tablet,delayed 81 mg PO QAM 04/23/21 04/23/21 release Previous Rx's ?Medication ?Instructions ?Recorded acetaminophen 500 mg capsule 1,000 mg (2 x 500 mg) PO Q6H PRN 05/17/21 fever or pain #30 caps lisinopril 10 mg tablet 10 mg PO QDAY 30 days #30 tabs 11/19/22 Held on 12/09/24. Instructions: Resume on 12/28/24. Hold till patient see her PCP or if BP>140/100 levetiracetam 1,000 mg tablet 1,000 mg PO BID #60 tabs 05/08/24 metformin 1,000 mg tablet 1,000 mg PO BID #60 tabs 05/08/24 metoprolol succinate 50 mg capsule 50 mg PO QDAY #30 ea 05/08/24 sprinkle, ext. release 24 hr Held on 12/09/24. Instructions: Resume on 12/28/24. Hold the medication till u see PCP or if BP >140/100 prednisone 20 mg tablet See Taper PO QDAY allergic 12/13/24 reaction #18 tabs Allergies Allergy/AdvReac Type Severity Reaction Status Date / Time lettuce Allergy Severe SWELLING Verified 12/03/24 14:18 Penicillins Allergy Severe HIVES AND Verified 12/03/24 14:18 RESPIRATORY PROBLEMS shellfish derived Allergy Severe Rash Verified 12/03/24 14:18 adhesive Allergy Mild Blister Verified 12/03/24 14:18 iodine Allergy Mild RASH AND Verified 12/03/24 14:18 BLISTERS jaramillo pepper (green pepper) Allergy Unknown RASH, Verified 12/03/24 14:18 SWELLING, SORE TONGUE egg Allergy Unknown RASH Verified 12/03/24 14:18 Review of Systems Review of Systems Systems Reviewed: All systems reviewed, normal except as documented Past Medical History Past Medical History NEUROLOGIC: Positive Neurological Disorders, Cerebrovascular Accident, Transient Ischemic Attacks (TIA) and Seizures CARDIAC: Positive Cardiac Disorders, Myocardial Infarction, Angina, Atherosclerotic Heart Disease, Hypercholesterolemia, Edema and Hypertension RESPIRATORY: Positive Asthma GASTROINTESTINAL: Positive Gastrointestinal Disorders, Gastroesophageal Reflux Disease and Obesity MUSCULOSKELETAL: Positive Musculoskeletal Disorders, Arthritis, Degenerative Joint Disease and Osteomyelitis ENDOCRINE: Positive Endocrine Disorders and Diabetes Mellitus Type 2 PSYCHO/SOCIAL: Positive Depression OTHER HISTORY: Positive Hospitalization, Falls, Blood Transfusions, Chemotherapy and Cancer Family History FAMILY HISTORY: Positive Family Respiratory Disorders, Family Cardiac Disorders, Family Cancer and Family Surgery Surgical History SURGICAL: Positive Cardiac Surgery, Coronary Artery Bypass Graft, Coronary Stent, Joint Replacement and Hysterectomy Social History SMOKING STATUS: Former smoker ED Exam Narrative Physical exam: Generally patient is elderly appearing but no obvious distress, heart regular rate and rhythm, lungs clear to auscultation equal bilaterally, abdomen soft nondistended nontender, neurologic exam patient is alert to person and place but confused to year. Extremities show no edema. Course Quality Measures none Orders Category Date Time Status levETIRAcetam INJ [Keppra Inj] Med 02/17/25 22:40 Discontinued 1,000 mg IVP X1 ONE Vital Signs Vital signs: Vital Signs Temperature 98.0 F 02/17/25 22:19 Pulse Rate 78 02/17/25 22:19 Respiratory Rate 17 02/17/25 22:19 Blood Pressure 174/97 H 02/17/25 22:19 Pulse Oximetry (%) 96 02/17/25 22:19 Oxygen Delivery Method Room Air 02/17/25 22:19 Seizure MDM Narrative MDM Narrative:: Scribe Attestation: Nan Rankin, am scribing for and in the presence of Dr. Richter. Provider Notation: Although this document has been carefully reviewed, there may still be some phonetic and other typographical errors.? These errors are purely grammatical due to imperfections in the software program and should not be construed in any way to? compromise the substance of the patient's medical care during this visit. Fingerstick blood sugar was 328. Patient received Keppra 1000 mg IV here in the emergency room. She is to continue her Keppra at home which is 1000 mg twice a day. Follow-up with her doctor. Return to ER as needed or if condition worsens. Patient data External records reviewed:: [facility] previous records (Reviewed prior ED records from 12/13/24. Patient was seen for Dermatitis.) and EMS form Clinical information provided by:: patient and EMS Social determinants that could affect healthcare access:: none Patient has the following chronic illnesses:: Seizures, Angina, Atherosclerotic Heart Disease, Hypercholesterolemia, Edema, Hypertension, Asthma, Gastroesophageal Reflux Disease, Obesity, Arthritis, Degenerative Joint Disease, Osteomyelitis, Diabetes Mellitus Type 2, Depression, Falls, Blood Transfusions, Chemotherapy and Cancer How is presenting disease/condition affected by chronic disease/condition?: exacerbated by Evaluation data The following diagnostics were reviewed and interpreted by me:: other (specify) (N/A) Lab and/or radiology exams considered but not ordered:: None Interpretation Summary: N/A Medications / Prescriptions Medications or Prescriptions considered but not ordered:: None Medication administrations:: Medication Administration History Discontinued Medications Levetiracetam (Levetiracetam Inj 100 Mg/Ml Vial 5ml) 1,000 mg IVP X1 ONE Stop: 02/17/25 22:41 Last Admin: 02/17/25 22:59 Dose: 1,000 mg Documented By: MM See above Consultations Consultation(s) initiated? (list below): No Diagnosis Seizure Differential Diagnosis: intractable seizure disorder, febrile convulsion, focal seizure, generalized seizure, new onset seizure, epileptic seizure and status epilepticus Most likely diagnosis given after review of the tests above:: None Admission Indicated Admission indicated?: not indicated Admission Request Was there a request for admission?: No Disposition Plan Disposition Plan: Discharge Discharge Attestation Discharge Attestation: The patient and all family members were given an opportunity to ask questions and understood the discharge instructions. Discharge instructions specifically effects, indications for sooner follow up or return to the emergency department, and the expected course of current diagnosis. Patient condition: Stable Discharge Plan Plan Patient Disposition: HOME (Self Care) Prescriptions/Referrals Prescriptions/Med Rec: No Action clopidogrel [Plavix] 75 mg Tablet 75 mg PO QDAY isosorbide mononitrate 60 mg Tablet Extended Release 24 Hr 60 mg PO QDAY aspirin 81 mg tablet,delayed release (DR/EC) 81 mg PO QAM Patient Comments: TAKE ONE TABLET BY MOUTH EVERY DAY IN THE MORNING acetaminophen 500 mg capsule 1,000 mg PO Q6H PRN (Reason: fever or pain) Qty: 30 0RF lisinopril 10 mg tablet 10 mg PO QDAY 30 Days Qty: 30 2RF levetiracetam 1,000 mg tablet 1,000 mg PO BID Qty: 60 0RF metoprolol succinate 50 mg capsule,sprinkle,ER 24hr 50 mg PO QDAY Qty: 30 0RF metformin 1,000 mg tablet 1,000 mg PO BID Qty: 60 0RF prednisone 20 mg tablet See Taper PO QDAY MDD 3 Qty: 18 0RF Taper: Prednisone Taper 20 mg DAILY for 9 Days and 0 Hour 10 mg DAILY for 2 Days and 0 Hour 5 mg DAILY for 7 Days and 0 Hour Rx Instructions: Take 3 Tabs q Day for 3 days then take 2 tabs q Day for 3 days then take 1 tablet q Day for 3 days then D/C Problem List Clinical Impression: Seizure Patient/Caregiver Discharge Instructions Education Materials: ED Seizure, Recurrent (Adult) Additional Instructions: Continue all current medications including the Keppra 1000 mg twice a day. Follow-up with your doctor. Return to ER as needed or if condition worsens. Print Language: Samoan Stand Alone Forms: [employer] Award Info., Patient Portal Info Letter
[2025-02-17] MEDS: levETIRAcetam INJ 100 MG/ML VIAL 5ML 1000 MG IVP (22:59)
--- NOTE | 2025-02-18 | PC.NURSE ---
son at bedside asking to speak with dr. dr berry into room to speak with son.
[2025-02-18 00:54] VITALS: BP 183/84; PULSE 76; RESP 18; TEMP 36.7; O2SAT 99
== END 2025-02-18 00:54 | disposition home or self-care (01) ==
LOC: SERX 02-18 01:05
PROVIDERS: Emergency Provider Emergency Medicine
DX: R56.9 Unspecified convulsions (principal)
CPT/HCPCS: 96374; 99282; J1953

== ENCOUNTER 2025-04-11 19:43 | Inpatient (IN) | payer MEDICARE, MEDICAID, SELFPAY ==
[2025-04-11] VITALS (39 sets, daily range): BP systolic 75–145; BP diastolic 36–87; PULSE 32–85; RESP 4–18; TEMP 29.2–32.1; O2SAT 84–100; BMI 19.7
--- NOTE | 2025-04-11 19:46 | PD.EDAMS ---
Altered Mental Status RME/HPI General Chief Complaint: Altered Mental Status Stated Complaint: AMS Time Seen by Provider: 04/11/25 19:47 Arrival date/time: 04/11/25 19:43 RME / HPI RME / HPI narrative: See MDM for Dr. Perez's HPI documentation. Related Data Home Medications ?Medication ?Instructions ?Recorded ?Confirmed clopidogrel 75 mg tablet (Plavix) 75 mg PO QDAY 10/31/19 04/23/21 isosorbide mononitrate 60 mg 60 mg PO QDAY 10/31/19 04/23/21 tablet,extended release 24 hr aspirin 81 mg tablet,delayed 81 mg PO QAM 04/23/21 04/23/21 release Previous Rx's ?Medication ?Instructions ?Recorded acetaminophen 500 mg capsule 1,000 mg (2 x 500 mg) PO Q6H PRN 05/17/21 fever or pain #30 caps lisinopril 10 mg tablet 10 mg PO QDAY 30 days #30 tabs 11/19/22 Held on 12/09/24. Instructions: Resume on 12/28/24. Hold till patient see her PCP or if BP>140/100 levetiracetam 1,000 mg tablet 1,000 mg PO BID #60 tabs 05/08/24 metformin 1,000 mg tablet 1,000 mg PO BID #60 tabs 05/08/24 metoprolol succinate 50 mg capsule 50 mg PO QDAY #30 ea 05/08/24 sprinkle, ext. release 24 hr Held on 12/09/24. Instructions: Resume on 12/28/24. Hold the medication till u see PCP or if BP >140/100 prednisone 20 mg tablet See Taper PO QDAY allergic 12/13/24 reaction #18 tabs Allergies Allergy/AdvReac Type Severity Reaction Status Date / Time lettuce Allergy Severe SWELLING Verified 04/11/25 19:46 Penicillins Allergy Severe HIVES AND Verified 04/11/25 19:46 RESPIRATORY PROBLEMS shellfish derived Allergy Severe Rash Verified 04/11/25 19:46 adhesive Allergy Mild Blister Verified 04/11/25 19:46 iodine Allergy Mild RASH AND Verified 04/11/25 19:46 BLISTERS jaramillo pepper (green pepper) Allergy Unknown RASH, Verified 04/11/25 19:46 SWELLING, SORE TONGUE egg Allergy Unknown RASH Verified 04/11/25 19:46 Review of Systems Review of Systems ROS Unobtainable: unobtainable due to mental status ED Exam Narrative Physical exam: See MDM for Dr. Perez's physical exam documentation. Course Quality Measures none Orders Category Date Time Status Bedside COVID-19 Antigen Test NOW Care 04/11/25 19:48 Active Bedside Influenza A&B Antigen Test NOW Care 04/11/25 19:48 Completed COVID-19 Screening Questionnaire NOW Care 04/11/25 20:39 Active EKG (ED ONLY) *Do not use* NOW Care 04/11/25 19:49 Completed Juan to [place] Routine Care 04/11/25 19:48 Ordered Miscellaneous Nursing Order NOW Care 04/11/25 20:29 Active Saline [Insert IV] NOW Care 04/11/25 19:48 Active Transfuse,blood/blood products NOW Care 04/11/25 20:[address] chest abdomen pelvis wo Stat Exams 04/11/25 19:[address] head/brain wo con Stat Exams 04/11/25 19:49 Completed EKG (ED Only) Stat Exams 04/11/25 19:49 Ordered XR chest 1V portable Stat Exams 04/11/25 19:49 Completed ABG [Arterial Blood Gas] Stat Lab 04/11/25 21:53 Completed Alcohol, Blood Medical Stat Lab 04/11/25 20:05 Completed Ammonia Stat Lab 04/11/25 20:05 Completed BNP [B-Type Natriuretic Peptide] Stat Lab 04/11/25 20:05 Completed Beta Hydroxybutyrate Stat Lab 04/11/25 20:05 Completed Bilirubin,Direct Stat Lab 04/11/25 20:05 Completed Blood Culture (Lab) Stat Lab 04/11/25 21:05 Received CBC Stat Lab 04/11/25 20:05 Completed CK [Creatine Kinase] Stat Lab 04/11/25 20:05 Completed CMP [Comprehensive Metabolic Panel] Stat Lab 04/11/25 20:05 Completed CRP [C-Reactive Protein] Stat Lab 04/11/25 20:05 Completed Cortisol,total,LC/MS/MS* Stat Lab 04/11/25 20:05 Received Drug Screen,Urine Stat Lab 04/11/25 20:05 Completed ESR [Sed Rate (ESR)] Stat Lab 04/11/25 20:05 Completed Hemoglobin A1C [Glycohemoglobin w (eAG)] Stat Lab 04/11/25 20:05 Completed Lactate (Lactic Acid) Stat Lab 04/11/25 20:05 Completed Lipase Stat Lab 04/11/25 20:05 Completed Magnesium Stat Lab 04/11/25 20:05 Completed Path Review Blood Smear Stat Lab 04/11/25 20:05 Completed Procalcitonin Stat Lab 04/11/25 20:05 Completed TSH [Thyroid Stimulating Hormone] Stat Lab 04/11/25 20:05 Completed Type and Screen Stat Lab 04/11/25 21:05 Results UA, C/S IF [Urinalysis, C/S if Indicated] Stat Lab 04/11/25 20:05 Completed prbc [Red Blood Cells] Stat Lab 04/11/25 21:05 Results Calcium Gluc/Ns 1000MG Ivpb [Calcium Gluc/Ns 1000mg Med 04/11/25 21:02 Discontinued Ivpb] 1,000 mg in 50 ml IV X1 DOPamine/D5w 400 MG IVPB [Intropin in D5w Ivpb] Med 04/11/25 19:52 Discontinued 400 mg in 250 ml IV .STK-MED DOPamine/D5w 400 MG IVPB [Intropin in D5w Ivpb] Med 04/11/25 19:49 Active 400 mg in 250 ml IV 5 mcg/kg/min Dextrose 50% Syr [D50w Syringe Abboject] Med 04/11/25 21:01 Discontinued 50 ml IVP X1 ONE Magnesium Sulfate 2 GM Ivpb [Magnesium Sulfate Ivpb] Med 04/11/25 21:02 Discontinued 2 gm in 50 ml IV X1 Ondansetron Inj [Zofran Inj] Med 04/11/25 19:48 Discontinued 4 mg IVP X1 ONE POTASSIUM CHL 10 mEq IVPB [Kcl Ivpb] Med 04/11/25 21:00 Discontinued 10 meq in 100 ml IV X1 POTASSIUM CHL 10 mEq IVPB [Kcl Ivpb] Med 04/11/25 21:00 Discontinued 10 meq in 100 ml IV X1 Sodium Chloride 0.9% 1000 ml [Ns] 1,000 ml Med 04/11/25 19:48 Discontinued IV 999 mls/hr Sodium Chloride 0.9% 1000 ml [Ns] 1,000 ml Med 04/11/25 20:05 Discontinued IV 999 mls/hr Vital Signs Vital signs: Vital Signs Pulse Rate 46 L 04/11/25 19:48 Respiratory Rate 12 04/11/25 19:48 Blood Pressure 79/48 L 04/11/25 19:48 Pulse Oximetry (%) 98 04/11/25 19:48 Oxygen Delivery Method Room Air 04/11/25 19:48 Altered Mental Status MDM Narrative MDM Narrative:: This section includes all my notes and documentations, including HPI, PE, and ED course. Cl Perez MD HPI: 69yo female with history of CVA, DM, HTN, HLD, dementia, CAD s/p CABG, asthma, seizure disorder BIBA from home with altered mental status. Patient was last seen her normal self several hours ago (12p-1p). She is bedbound. But she is alert and oriented normally.When family went to check on the patient, she was found to be unresponsive just [employer]. EMS found the patient with severe bradycardia and hypotension and hypoxia. Family is not present for help with the history. ROS: Can't obtain from the patient due due to current clinical condition. Physical Exam: General: Appears to be obtunded. Hypotension and hypoxia and bradycardia and hypothermia noted. Eyes:? Conjunctivae and lids clear.? EOMI.? PERRL. ENT:? No signs of head trauma. Neck:? Supple.? No carotid bruit.? No JVD.?? Heart: Severe bradycardia noted. Lungs:? No obvious respiratory distress.? Decreased air movement.? No severe rhonchi, wheezing, rales.?? Abdomen:? Soft with no obvious tenderness. Legs:? No clubbing, cyanosis, edema.? Skin:? Warm and dry.?? Neuro:? GCS 7 (does not open eyes, not verbal, localizes pain). I reviewed EMS notes. I reviewed all diagnostic test results. My interpretation of the EKG is atrial fibrillation with bradycardia. My interpretation of the chest x-ray is bilateral opacities. My review of the CT head report is NAD. My review of the CT chest abdomen pelvis report is CHF and pneumonia. Blood tests remarkable for WBC 2.2, Hgb 7.6, Plt 34, Na 155, K 2.4, Cl 129, Glucose 65, Ca <5, Mg 1.1, Lipase 115. ABG showed pH 7.29, pCO2 53, HCO3 25. Urine tests unremarkable. COVID/Influenza negative. At this point, diagnoses include: AMS (altered mental status) Bradycardia Hypotension Pneumonia Pancytopenia Hypokalemia Hypomagnesemia Hypocalcemia Hypothermia Hypernatremia Hypoglycemia Hypoalbuminemia Treatment here included: Dopamine drip IV fluid Zofran KCl IV Magnesium Sulfate Calcium Gluconate Laverne Hutchinson Some improvement noted. I discussed the case with our ICU service. About the presentation and exam and diagnostics and treatments here. And need of further care in the hospital. Will accept the patient. Cl Perez MD Patient data External records reviewed:: [facility] previous records and EMS form Clinical information provided by:: EMS Social determinants that could affect healthcare access:: none Patient has the following chronic illnesses:: CVA, DM, HTN, HLD, dementia, CAD s/p CABG, asthma, seizure disorder How is presenting disease/condition affected by chronic disease/condition?: uneffected by Evaluation data The following diagnostics were reviewed and interpreted by me:: lab results, radiology exam(s) and EKG tracing(s) (My interpretation of the EKG is: Atrial fibrillation (47 bpm) with nonspecific ST-T changes. Cl Perez MD) Lab and/or radiology exams considered but not ordered:: none Interpretation Summary: I reviewed all diagnostic test results. My interpretation of the EKG is atrial fibrillation with bradycardia. My interpretation of the chest x-ray is bilateral opacities. My review of the CT head report is NAD. My review of the CT chest abdomen pelvis report is CHF and pneumonia. Blood tests remarkable for WBC 2.2, Hgb 7.6, Plt 34, Na 155, K 2.4, Cl 129, Glucose 65, Ca <5, Mg 1.1, Lipase 115. ABG showed pH 7.29, pCO2 53, HCO3 25. Urine tests unremarkable. COVID/Influenza negative. Medications / Prescriptions Medications or Prescriptions considered but not ordered:: none Medication administrations:: Medication Administration History Dextrose (Dextrose 50%-Water Inj 50 Ml Syringe) 50 ml IV Q15MIN PRN PRN Reason: BG <50 OR BG <70 & pt unresponsive Stop: 05/12/25 00:07 Enoxaparin Sodium (Enoxaparin Sod Inj 40 Mg/0.4 Ml Syringe) 40 mg SC QDAY [facility] Stop: 04/26/25 20:59 Glucagon (Glucagon Inj 1 Mg Vial) 1 mg IM Q15MIN PRN PRN Reason: BG <70, and no IV access Dopamine HCl/Dextrose (Intropin In D5w Ivpb) 400 mg in 250 mls @ 10.369 mls/hr IV .Q24H [facility]; Protocol Stop: 05/11/25 19:48 Last Titration: 04/11/25 23:50 Dose: 9 mcg/kg/min, 18.664 mls/hr Documented By: [email or web address] Titration: 04/11/25 23:40 Dose: 9 mcg/kg/min, 18.664 mls/hr Documented By: [email or web address] Titration: 04/11/25 23:30 Dose: 9 mcg/kg/min, 18.664 mls/hr Documented By: [email or web address] Titration: 04/11/25 23:20 Dose: 9 mcg/kg/min, 18.664 mls/hr Documented By: [email or web address] Titration: 04/11/25 23:10 Dose: 9 mcg/kg/min, 18.664 mls/hr Documented By: [email or web address] Titration: 04/11/25 23:00 Dose: 9 mcg/kg/min, 18.664 mls/hr Documented By: [email or web address] Titration: 04/11/25 22:50 Dose: 9 mcg/kg/min, 18.664 mls/hr Documented By: [email or web address] Titration: 04/11/25 22:50 Dose: 9 mcg/kg/min, 18.664 mls/hr Documented By: [email or web address] Titration: 04/11/25 22:40 Dose: 9 mcg/kg/min, 18.664 mls/hr Documented By: [email or web address] Titration: 04/11/25 22:30 Dose: 9 mcg/kg/min, 18.664 mls/hr Documented By: [email or web address] Titration: 04/11/25 22:20 Dose: 9 mcg/kg/min, 18.664 mls/hr Documented By: [email or web address] Titration: 04/11/25 22:10 Dose: 9 mcg/kg/min, 18.664 mls/hr Documented By: [email or web address] Titration: 04/11/25 22:00 Dose: 9 mcg/kg/min, 18.664 mls/hr Documented By: [email or web address] Titration: 04/11/25 21:50 Dose: 9 mcg/kg/min, 18.664 mls/hr Documented By: [email or web address] Titration: 04/11/25 21:40 Dose: 9 mcg/kg/min, 18.664 mls/hr Documented By: [email or web address] Titration: 04/11/25 21:30 Dose: 9 mcg/kg/min, 18.664 mls/hr Documented By: [email or web address] Titration: 04/11/25 21:20 Dose: 9 mcg/kg/min, 18.664 mls/hr Documented By: [email or web address] Titration: 04/11/25 21:10 Dose: 9 mcg/kg/min, 18.664 mls/hr Documented By: [email or web address] Titration: 04/11/25 21:00 Dose: 9 mcg/kg/min, 18.664 mls/hr Documented By: [email or web address] Titration: 04/11/25 20:50 Dose: 9 mcg/kg/min, 18.664 mls/hr Documented By: [email or web address] Titration: 04/11/25 20:40 Dose: 9 mcg/kg/min, 18.664 mls/hr Documented By: [email or web address] Titration: 04/11/25 20:30 Dose: 9 mcg/kg/min, 18.664 mls/hr Documented By: [email or web address] Titration: 04/11/25 20:20 Dose: 7 mcg/kg/min, 14.516 mls/hr Documented By: [email or web address] Titration: 04/11/25 20:10 Dose: 7 mcg/kg/min, 14.516 mls/hr Documented By: [email or web address] Admin: 04/11/25 20:00 Dose: 5 mcg/kg/min, 10.369 mls/hr Documented By: CB Magnesium Sulfate (Magnesium Sulfate Ivpb) 4 gm in 50 mls @ 12.5 mls/hr IV X1 ONE Stop: 04/12/25 02:26 Potassium Chloride (Kcl Ivpb) 10 meq in 100 mls @ 100 mls/hr IV Q1H [facility] Stop: 04/12/25 02:29 Ceftriaxone Sodium/Dextrose (Rocephin/D5w 1gm Iv Premix) 1 gm in 50 mls @ 100 mls/hr IV QDAY [facility] Stop: 04/18/25 23:29 Metronidazole (Flagyl 500 Mg Iv) 500 mg in 100 mls @ 200 mls/hr IV Q8HR [facility] Stop: 04/18/25 23:30 Vancomycin HCl 1,000 mg/ (Sodium Chloride) 250 mls @ 120 mls/hr IV X1 ONE Stop: 04/12/25 01:49 Insulin Human Lispro (Insulin Lispro (Admelog) 1 Unit/0.01 Ml Unit) 0 unit SC Q6HR [facility]; Protocol Stop: 05/12/25 05:59 Ondansetron HCl (Ondansetron Inj 2 Mg/Ml Inj 2 Ml) 4 mg IVP Q6H PRN; Protocol PRN Reason: NAUSEA OR VOMITING Stop: 05/11/25 22:22 Pharmacy Consult (Vancomycin Pharmacy To Dose 1 Each Each) 1 each IV QDAY [facility] Stop: 05/12/25 08:59 Terbinafine HCl (Terbinafine Hcl Cr 1% 12 Gm Tube) 2 gm TOP TID [facility] Stop: 05/11/25 22:59 Discontinued Medications Calcium Gluconate (Calcium Gluconate 10% Inj 1 Gm/10 Ml Vial) 2 gm IV X1 ONE Stop: 04/11/25 22:31 Last Admin: 04/11/25 23:08 Dose: 2 gm Documented By: YO Dextrose (Dextrose 50%-Water Inj 50 Ml Syringe) 50 ml IVP X1 ONE Stop: 04/11/25 21:02 Last Admin: 04/11/25 22:05 Dose: Not Given Documented By: YO Non-Admin Reason: Cancelled by Provider Famotidine (Famotidine 20 Mg Tablet) 20 mg PO BID [facility] Stop: 05/12/25 08:59 Sodium Chloride (Ns) 1,000 mls @ 999 mls/hr IV .Q1H1M ONE Stop: 04/11/25 20:48 Last Infusion: 04/11/25 22:21 Dose: Infused Documented By: Infusion: 04/11/25 20:32 Dose: 999 mls/hr Documented By: Admin: 04/11/25 20:11 Dose: 999 mls/hr Documented By: YENY Dopamine HCl/Dextrose (Intropin In D5w Ivpb) Confirm Administered Dose 400 mg in 250 mls @ ud IV .STK-MED ONE Stop: 04/11/25 19:53 Last Admin: 04/11/25 20:10 Dose: Not Given Documented By: YENY Non-Admin Reason: Override Medication Sodium Chloride (Ns) 1,000 mls @ 999 mls/hr IV .Q1H1M ONE Stop: 04/11/25 21:05 Last Infusion: 04/11/25 22:22 Dose: Infused Documented By: Infusion: 04/11/25 20:32 Dose: 999 mls/hr Documented By: Admin: 04/11/25 20:12 Dose: 999 mls/hr Documented By: YENY Potassium Chloride (Kcl Ivpb) 10 meq in 100 mls @ 100 mls/hr IV X1 ONE Stop: 04/11/25 21:59 Last Infusion: 04/11/25 23:13 Dose: Infused Documented By: Admin: 04/11/25 21:55 Dose: 100 mls/hr Documented By: YO Potassium Chloride (Kcl Ivpb) 10 meq in 100 mls @ 100 mls/hr IV X1 ONE Stop: 04/11/25 21:59 Last Admin: 04/11/25 23:07 Dose: 100 mls/hr Documented By: YO Calcium Gluconate/Sodium Chloride (Calcium Gluc/Ns 1000mg Ivpb) 1,000 mg in 50 mls @ 50 mls/hr IV X1 ONE Stop: 04/11/25 22:01 Last Infusion: 04/11/25 23:15 Dose: Infused Documented By: Admin: 04/11/25 22:15 Dose: 50 mls/hr Documented By: YO Magnesium Sulfate (Magnesium Sulfate Ivpb) 2 gm in 50 mls @ 25 mls/hr IV X1 ONE Stop: 04/11/25 23:01 Last Infusion: 04/11/25 23:45 Dose: Infused Documented By: Admin: 04/11/25 21:55 Dose: 25 mls/hr Documented By: YO Lactated Ringer's (Lactated Ringers) 1,000 mls @ 500 mls/hr IV .Q2H ONE Stop: 04/12/25 00:23 Last Admin: 04/11/25 23:12 Dose: Not Given Documented By: YO Non-Admin Reason: Cancelled by Provider Dextrose (D5w) 500 mls @ 70 mls/hr IV .Q7H9M [facility] Stop: 05/11/25 22:29 Last Admin: 04/11/25 22:53 Dose: Not Given Documented By: YO Non-Admin Reason: Cancelled by Provider Albumin Human (Albuminex 25% Ivpb) 25 gm in 100 mls @ 100 mls/hr IV X1 ONE Stop: 04/11/25 23:32 Last Admin: 04/11/25 23:35 Dose: 100 mls/hr Documented By: YO Albumin Human (Albuminar-25 Ivpb) 12.5 gm in 50 mls @ 50 mls/hr IV X1 ONE Stop: 04/11/25 23:31 Dextrose (D5w) 500 mls @ 999 mls/hr IV .Q31M [facility] Stop: 05/11/25 22:44 Last Admin: 04/11/25 22:53 Dose: Not Given Documented By: YO Non-Admin Reason: Cancelled by Provider Dextrose (D5w) 500 mls @ 999 mls/hr IV .Q31M ONE Stop: 04/11/25 23:17 Last Admin: 04/11/25 22:53 Dose: Not Given Documented By: YO Non-Admin Reason: Cancelled by Provider Dextrose (D5w) 500 mls @ 500 mls/hr IV .Q1H ONE Stop: 04/11/25 23:56 Last Infusion: 04/11/25 23:50 Dose: Infused Documented By: Admin: 04/11/25 23:27 Dose: 500 mls/hr Documented By: YO Metronidazole (Flagyl 500 Mg Iv) 500 mg in 100 mls @ 200 mls/hr IV X1 ONE Stop: 04/12/25 00:14 Ondansetron HCl (Ondansetron Inj 2 Mg/Ml Inj 2 Ml) 4 mg IVP X1 ONE; Protocol Stop: 04/11/25 19:49 Last Admin: 04/11/25 20:44 Dose: 4 mg Documented By: YO Treatment here from me included: Dopamine drip IV fluid Zofran KCl IV Magnesium Sulfate Calcium Gluconate Laverne Hutchinson Consultations Consultation(s) initiated? (list below): Yes Consultation #1 (Physician, Specialty, Details): I discussed the case with our ICU service. About the presentation and exam and diagnostics and treatments here. And need of further care in the hospital. Will accept the patient. Diagnosis Most likely diagnosis given after review of the tests above:: AMS (altered mental status) Bradycardia Hypotension Pneumonia Pancytopenia Hypokalemia Hypomagnesemia Hypocalcemia Hypothermia Hypernatremia Hypoglycemia Hypoalbuminemia Admission Indicated Admission indicated?: indicated Explain why admission is indicated or not indicated:: AMS (altered mental status) Bradycardia Hypotension Pneumonia Pancytopenia Hypokalemia Hypomagnesemia Hypocalcemia Hypothermia Hypernatremia Hypoglycemia Hypoalbuminemia Admission Request Was there a request for admission?: Yes Admission Attestation Admission request attestation: Discussed case with ICU service regarding admission. Discussed patients ED course, exam findings, labs, and radiology results. Agrees to accept the patient for admission. Disposition Plan Disposition Plan: Admit Critical Care Time Critical Care Time Critical Care Time: Yes Total Critical Care Time (min.): 40 Attestation: Due to a high probability of clinically significant, life threatening deterioration, the patient required my highest level of preparedness to intervene emergently and I personally spent this critical care time directly and personally managing the patient. This critical care time included obtaining a history; examining the patient; ordering and review of studies; arranging urgent treatment with development of a management plan; evaluation of patient's response to treatment; frequent reassessment; and discussions with family and other providers. It was exclusive of separately billable procedures and treating other patients and teaching time. Cl Perez MD Discharge Plan Plan Patient Disposition: Admit Acute Care w/in Hospital Problem List Clinical Impression: AMS (altered mental status), Bradycardia, Hypotension, Pneumonia, Pancytopenia, Hypokalemia, Hypomagnesemia, Hypocalcemia, Hypothermia, Hypernatremia, Hypoglycemia, Hypoalbuminemia
--- NOTE | 2025-04-11 19:49 | XR_ITS ---
Examination: CT chest, without intravenous contrast. CT abdomen, without intravenous contrast. CT pelvis, without intravenous contrast. 2-D sagittal and coronal reconstructions. 3-D reconstructions. Date and time of exam: April 11, 2025, 2112 hours INDICATIONS: Altered mental status, patient unresponsive beginning at 1200 hours today CTDI vol (mgy) 9.12 DLP (MGycm) 666 Technique: Multiple CT images, 3.0 mm slice thickness, obtained chest, abdomen, pelvis, with the high-resolution 64 slice scanner.. Sagittal and coronal 2-D reconstructions are obtained. 3-D reconstructions Low dose protocols were performed. One or more of the following dose reduction techniques were used; automated exposure control, adjustment of the mA and/or KV according to patient size, use of iterative reconstruction technique. Findings: Multiple subcentimeter axillary lymph nodes No thoracic aortic aneurysm dilatation Pulmonary artery segments are not enlarged Very heavy calcification left anterior descending coronary artery Mitral valvular calcification 6 mm 4 mm 6 mm pulmonary nodules right upper lobe Enlarged cardiac contour, significant vascular congestion and septal edema, mild in the lung [place] with left base pneumonia Small bilateral pleural effusions Gastric mucosa appears thickened No visualized liver or splenic lesions No gallstones No pancreatic or adrenal mass No renal or ureteral calculi Abdominal aortic calcification but no aneurysmal dilatation Moderate stool throughout the colon, abundant stool in the rectosigmoid No obstruction Rectal wall thickening Urinary bladder contracted around a Juan catheter Rectal tube Severe osteopenia Old healed left hip fracture Moderate to advanced bilateral hip osteoarthritis IMPRESSION: Mild CHF Left base pneumonia, consider aspiration pneumonia Right upper lobe pulmonary nodules, with the study as baseline recommend 6-month follow-up CT chest without contrast Multiple subcentimeter axillary lymph nodes, clinical correlation advised, recommend bilateral breast and axillary sonography follow-up Small bilateral pleural effusions Significant thickening of the gastric mucosa, differential would include gastritis Abundant stool in the rectosigmoid but no bowel obstruction Rectal wall thickening, consider proctitis, recommend direct inspection Severe osteopenia
--- NOTE | 2025-04-11 19:49 | XR_ITS ---
EXAMINATION: AP chest single view TECHNIQUE: AP portable supine chest single view Date and time: April 11, 2025, 2044 hours, comparison June 23, 2024 INDICATIONS: Shortness of breath weakness today. FINDINGS: Mild to moderate CHF Mild to moderate enlargement cardiac contour with prominent vascular congestion and central vascular engorgement and perihilar edema Consider superimposed bilateral pneumonia CABG IMPRESSION: Mild to moderate CHF Consider superimposed bilateral pneumonia
--- NOTE | 2025-04-11 19:49 | XR_ITS ---
Examination: CT brain head without contrast. 2-D sagittal coronal reconstructions Date and time of exam: April 11, 2025, 2132 hours, comparison June 23, 2024 INDICATIONS: Patient unresponsive beginning 1200 hours today CTDI: vol (mGy): 46.6 DLP: (mGycm): 878 Technique: Multiple CT axial sections of the brain have been obtained, 5 mm slice thickness. Contrast has not been administered. 2-D sagittal, coronal reconstructions have been obtained Low dose protocols were performed. One or more of the following dose reduction techniques were used; automated exposure control, adjustment of the mA and/or KV according to patient size, use of iterative reconstruction technique. Findings: No significant ventricular enlargement. Again noted right occipital lobe encephalomalacia Intra-axial or extra-axial hemorrhage density is not seen. No mass effect or midline shift Basal cisterns are not remarkable. Fourth ventricle is midline. Cranial vault intact. Impression: Negative for acute hemorrhage, mass effect or midline shift As clinically warranted, given the patient's presentation, consider brain MRI MRA without contrast, stroke protocol, follow-up
[2025-04-11] MEDS: DOPamine/D5w 400 MG IVPB 400 MG/250 ML BAG 10.369 MG IV (20:00)
[2025-04-11] MEDS: SODIUM CHLORIDE 0.9% 1000 ML 1,000 ML 999 ML IV ×2 (20:11→20:12)
[2025-04-11 20:23] LABS: Collection Type, Urine Clean Catch
[2025-04-11 20:26] LABS: Lactate (Lactic Acid) 0.9 mMol/L (0.4-2.0)
[2025-04-11 20:30] LABS: Basophils # (Auto) 0.0 Thou/mm3 (0.0-0.2); Basophils % (Auto) 1 % (0-2.5); Eosinophils # (Auto) 0.3 Thou/mm3 (0.0-0.5); Eosinophils % (Auto) 15 % (0-10); Hematocrit 23.8 % (36.0-46.0); Immature Granulocytes Auto 0.01 Thou/mm3 (0.00-0.00); Lymphocytes # (Auto) 0.4 Thou/mm3 (1.0-4.8); Lymphocytes % (Auto) 20 % (10-50); Mean Corpuscular HGB Conc 31.9 g/dl (31.0-37.0); Mean Corpuscular Hemoglobin 26.6 pg (25.0-35.0); Mean Corpuscular Volume 83 fL (80-100); Monocytes # (Auto) 0.1 Thou/mm3 (0.0-0.8); Monocytes % (Auto) 6 % (0-12); Neutrophils # (Auto) 1.3 Thou/mm3 (1.8-7.7); Neutrophils % (Auto) 58 % (37-80); Nucleated Red Blood Cell # 0.00 Thou/mm3 (0.00-0.00); Nucleated Red Blood Cell % 0 /100 WBC (0); RDW Standard Deviation 49.9 fL (36.4-46.3); Red Blood Count 2.86 Miln/mm3 (4.00-5.20); White Blood Count 2.2 Thou/mm3 (3.6-11.0)
[2025-04-11 20:31] LABS: Bilirubin,Urine Negative (Negative); Blood,Urine Negative (Negative); Clarity,Urine Clear (Clear/Hazy); Color,Urine Yellow (Lt Yel-Yel); Culture Indicated,Urine Not Indicated; Glucose, Urine Negative (Negative); Hyaline Casts,Urine < 1 /hpf (0-1); Ketones,Urine Negative (Negative); Leukocyte Esterase,Urine Negative (Negative); Nitrite,Urine Negative (Negative); PH,Urine 5.5 (5.0-7.0); Protein,Urine Trace (Neg - Trace); RBC,Urine 1 /hpf (0-3); Specific Gravity,Urine 1.018 (1.001-1.035); Squamous Epithelial Cell,Urine < 1 /hpf (0-5); Urobilinogen,Urine Negative mg/dL (0.0-1.0); WBC,Urine 1 /hpf (0-5)
[2025-04-11 20:34] LABS: Beta Hydroxybutyrate 0.2 mmol/L (<0.6)
[2025-04-11 20:41] LABS: Amphetamine/Methamp Scrn,U Negative (Negative); Barbiturate Screen,Urine Negative (Negative); Benzodiazepines Screen,Urine Negative (Negative); Benzoylecgonine Screen, Ur Negative (Negative); Fentanyl Screen,Urine Negative (Negative); Opiate Screen,Urine Negative (Negative); THC Screen,Urine Negative (Negative)
[2025-04-11 20:44] LABS: Ammonia 37 uMol/L (11-32)
[2025-04-11] MEDS: ONDANSETRON INJ 2 MG/ML INJ 2 ML 4 MG IVP (20:44)
[2025-04-11 20:50] LABS: Hemoglobin 7.6 g/dL (12.0-16.0); Platelet Count 34 Thou/mm3 (140-440)
[2025-04-11 20:52] LABS: Sed Rate (ESR) < 1 mm/hr (0-30)
[2025-04-11 20:54] LABS: Alanine Aminotransferase 27 U/L (10-49); Albumin, Serum 1.5 gm/dL (3.4-4.8); Albumin/Globulin Ratio 1.5 (1.2-2.2); Alcohol, Blood Medical < 3.0 mg/dL (0-10.0); Alkaline Phosphatase 45 U/L (46-116); Anion Gap 8 (7-16); Aspartate Amino Transferase 31 U/L (0-34); BUN/Creatinine Ratio 90 Ratio (12-20); Bilirubin,Direct < 0.1 mg/dL (0.0-0.3); Bilirubin,Total 0.2 mg/dL (0.3-1.2); Blood Urea Nitrogen 18 mg/dL (9-23); C-Reactive Protein < 0.5 mg/dL (0.0-0.9); Calcium (Corrected) 7.0 mg/dL (8.5-10.1); Carbon Dioxide 18.5 mMol/L (20.0-31.0); Creatine Kinase 26 U/L (34-171); Creatinine (Component) < 0.2 mg/dL (0.6-1.3); Estimated Creatinine Clearance 225.2 mL/min (>60); Globulin 1.0 gm/dL (2.3-3.5); Glucose 65 mg/dL (74-106); Lipase 115 U/L (12-53); Magnesium 1.1 mg/dL (1.6-2.6); Osmolality,Calculated 307 (275-295); Procalcitonin 0.04 ng/ml (0.0-0.49); Sodium 155 mMol/L (136-145); Thyroid Stimulating Hormone 2.73 uIU/mL (0.55-4.78); Total Protein 2.5 gm/dL (5.7-8.2); eGFR > 60 See Note
[2025-04-11 20:58] LABS: Calcium < 5.0 mg/dL (8.3-10.6); Potassium 2.4 mMol/L (3.4-5.1)
[2025-04-11 20:59] LABS: Chloride 129 mMol/L (98-107)
[2025-04-11 21:00] LABS: Slide Review Platelets confirmed
[2025-04-11 21:04] LABS: Path Review Blood Smear Sent to Pathologist
[2025-04-11 21:08] LABS: Glucose Estimated Average 186 mg/dL (80-131); Hemoglobin A1C 8.1 % Hgb (4.8-6.0)
[2025-04-11 21:19] LABS: B-Type Natriuretic Peptide 85 pg/mL (0-100)
[2025-04-11] MEDS: POTASSIUM CHL 10 mEq IVPB 10 MEQ/100 ML BAG 100 MEQ IV ×2 (21:55→23:07)
[2025-04-11] MEDS: Magnesium Sulfate 2 GM Ivpb 2 GM/50 ML BAG IV (21:55)
[2025-04-11 22:03] LABS: Allen Test Performed/OK; Base Excess -2 (-3-3); HCO3 25 mEq/L (20-26); Inspired Oxygen, FIO2 21 %; O2 Saturation 97 % (91-98); PCO2 53 mmHg (32.0-48.0); PO2 90 mmHg (83-108); Puncture Site Right Radial; pH, Arterial 7.29 (7.35-7.45)
[2025-04-11] MEDS: CALCIUM GLUC/NS 1000MG IVPB 1,000 MG/50 ML BAG 50 MG IV (22:15)
--- NOTE | 2025-04-11 23:03 | ESHP_ITS ---
<Statement entered by Erik Carroll MD - 04/12/25 07:14> I have discussed and was present for the essential components of the history, physical examination, diagnosis, and treatment plan with the resident. I agree with the patient's care as documented by the resident and amended herein by me. Erik Carroll MD FACP. Documentation for date of: 04/11/25 HPI History of Present Illness History of present illness: Chief complaint: Altered mental status and severe hypothermia HPI: Mr. Comer is a 69-year-old female with past medical history of primary hypertension, type II NIDDM, CAD s/p CABG, CVA, seizure disorder, age-related dementia, Left foot metatarsal amputation, right foot second digit amputation and COPD, who presented to the hospital due to worsening mentation. Patient was found completely obtunded at home and was BIBA from home. As per ED documentation, patient was last seen in her normal state this afternoon around 1 PM. Patient is otherwise bedbound, but as per previous documentation is able to ambulate with a walker. On my assessment in the ED, patient was alert but minimally responsive to questions, unable to assess orientation at this time. She is a poor historian most of the history was obtained from ED charting and previous health records. Family was not present at bedside to provide history at this time. Temperature 84.7 on presentation, HR 40s and hypotension MAP 51-52. ED started patient on Dopamine gtt emperically, possible cardiogenic shock. Initial lab workup remarkable for pancytopenia WBC 2.2, RBC 2.86, Hb 7.6, PLT 34. On chemistry, acute electrolyte disturbances noted ? Na 155, OSM 307, K2.4, Mg 1.1, Phos 2.3, Ca 7 and chloride 129. ABG showed pH 7.29, bicarb 18.5, CO2 53. Ammonia 37, 7 protein calorie malnutrition?protein 2.5, albumin 1.5, BMI 19.7 and weight 55.3. Chest x-ray showed possible left-sided consolidation, left base pneumonia likely aspiration. Head CT negative for any acute findings. CT chest abdomen pelvis remarkable for Left base pneumonia, consider aspiration. Right upper lobe pulmonary nodules. Multiple subcentimeter axillary lymph nodes. Small bilateral pleural effusions. Significant thickening of the gastric mucosa, differential would include gastritis. Abundant stool in the rectosigmoid but no bowel obstruction. Rectal wall thickening, consider proctitis, recommend direct inspection. Severe osteopenia Patient was admitted to ICU for the work-up and management of acute metabolic encephalopathy in the setting of severe hypothermia and severe hypernatremia. Allergies: Penicillin?anaphylaxis Shellfish?anaphylaxis Iodine?blisters Social history: Marital?Status:? Social?History?Note:?Lives?at home with family Family history: Unknown Review of Systems Review of Systems ROS Unobtainable: unobtainable due to mental status Exam Vital Signs Temp Pulse Resp BP Pulse Ox O2 Del Method 85.8 F L 71 12 139/79 H 96 Room Air 04/11/25 22:23 04/11/25 22:23 04/11/25 22:23 04/11/25 22:23 04/11/25 22:23 04/11/25 22:23 Narrative Exam Constitutional Alert, spontaneously open eyes and follows with it. Unable to assess orientation. Under heating blanket (bear hugger) HEENT Vision grossly intact. Patent nares, crusting on nasal tip, possible BCC lesion. Trachea midline. Respiratory Chest normal on inspection and clear to auscultation bilaterally. Cardiovascular S1 and S2 audible, RRR. Systolic ejection mumur 3/5 radiating to the carotids, bruit + Abdominal BS + but very slow ; non tender to palpation in all quadrants. Musculoskeletal Extremities tone within normal limits. Non pitting B/L LE edema. LT foot transmetatarsal amputation. RT foot 2nd digit amputation. Neurological CN II - XII grossly intact. Extremity motor and sensation grossly intact. Skin Tinea capitis frontal scalp. Petechial lesions B/L LE. Psychiatric Patient has a good affect, is cooperative. Results: Labs 04/11/25 20:05 04/12/25 00:33 Labs: Short CBC 04/11/25 Range/Units 20:05 WBC 2.2 L (3.6-11.0) Thou/mm3 Hgb 7.6 L (12.0-16.0) g/dL Hct 23.8 L (36.0-46.0) % Plt Count 34 L (140-440) Thou/mm3 BMP 04/11/25 20:05 Sodium 155 H Potassium 2.4 L* Chloride 129 H* Carbon Dioxide 18.5 L BUN 18 Creatinine < 0.2 L Glucose 65 L Calcium < 5.0 L* Cardiac Enzymes 04/11/25 Range/Units 20:05 Total Creatine Kinase 26 L (34-171) U/L Liver Function 04/11/25 Range/Units 20:05 Total Bilirubin 0.2 L (0.3-1.2) mg/dL Direct Bilirubin < 0.1 (0.0-0.3) mg/dL AST 31 (0-34) U/L ALT 27 (10-49) U/L Alkaline Phosphatase 45 L (46-116) U/L Albumin 1.5 L (3.4-4.8) gm/dL Urine 04/11/25 Range/Units 20:05 Urine Color Yellow (Lt Yel-Yel) Urine Clarity Clear (Clear/Hazy) Urine pH 5.5 (5.0-7.0) Ur Specific [place] 1.018 (1.001-1.035) Urine Protein Trace (Neg - Trace) Urine Glucose (UA) Negative (Negative) ABG Interpretation ABG results: 04/11/25 21:53 ABG pH 7.29 L ABG pCO2 53 H ABG pO2 90 ABG HCO3 25 ABG O2 Saturation 97 ABG Base Excess -2 Quality Measures Quality Measures VTE prophylaxis Advance care planning discussed with:: patient Medications Home Medications and Allergies Home Medications ?Medication ?Instructions ?Recorded ?Confirmed ?Type clopidogrel 75 mg tablet (Plavix) 75 mg PO QDAY 04/23/21 History isosorbide mononitrate 60 mg 60 mg PO QDAY 10/31/19 History tablet,extended release 24 hr aspirin 81 mg tablet,delayed 81 mg PO QAM 04/23/21 History release Allergies Allergy/AdvReac Type Severity Reaction Status Date / Time lettuce Allergy Severe SWELLING Verified 04/11/25 19:46 Penicillins Allergy Severe HIVES AND Verified 04/11/25 19:46 RESPIRATORY PROBLEMS shellfish derived Allergy Severe Rash Verified 04/11/25 19:46 adhesive Allergy Mild Blister Verified 04/11/25 19:46 iodine Allergy Mild RASH AND Verified 04/11/25 19:46 BLISTERS jaramillo pepper (green pepper) Allergy Unknown RASH, Verified 04/11/25 19:46 SWELLING, SORE TONGUE egg Allergy Unknown RASH Verified 04/11/25 19:46 Visit Medications Enoxaparin Sodium (Enoxaparin Sod Inj 40 Mg/0.4 Ml Syringe) 40 mg SC QDAY [facility] Stop: 04/26/25 20:59 Dopamine HCl/Dextrose (Intropin In D5w Ivpb) 400 mg in 250 mls @ 10.369 mls/hr IV .Q24H HAR[facility]; Protocol Stop: 05/11/25 19:48 Last Titration: 04/11/25 22:40 Dose: 9 mcg/kg/min, 18.664 mls/hr Lactated Ringer's (Lactated Ringers) 1,000 mls @ 500 mls/hr IV .Q2H ONE Stop: 04/12/25 00:23 Magnesium Sulfate (Magnesium Sulfate Ivpb) 4 gm in 50 mls @ 12.5 mls/hr IV X1 ONE Stop: 04/12/25 02:26 Potassium Chloride (Kcl Ivpb) 10 meq in 100 mls @ 100 mls/hr IV Q1H [facility] Stop: 04/12/25 02:29 Albumin Human (Albuminex 25% Ivpb) 25 gm in 100 mls @ 100 mls/hr IV X1 ONE Stop: 04/11/25 23:32 Albumin Human (Albuminar-25 Ivpb) 12.5 gm in 50 mls @ 50 mls/hr IV X1 ONE Stop: 04/11/25 23:31 Dextrose (D5w) 500 mls @ 500 mls/hr IV .Q1H ONE Stop: 04/11/25 23:56 Ondansetron HCl (Ondansetron Inj 2 Mg/Ml Inj 2 Ml) 4 mg IVP Q6H PRN; Protocol PRN Reason: NAUSEA OR VOMITING Stop: 05/11/25 22:22 Terbinafine HCl (Terbinafine Hcl Cr 1% 12 Gm Tube) 2 gm TOP TID [facility] Stop: 05/11/25 22:59 Discontinued Medications Calcium Gluconate (Calcium Gluconate 10% Inj 1 Gm/10 Ml Vial) 2 gm IV X1 ONE Stop: 04/11/25 22:31 Dextrose (Dextrose 50%-Water Inj 50 Ml Syringe) 50 ml IVP X1 ONE Stop: 04/11/25 21:02 Last Admin: 04/11/25 22:05 Dose: Not Given Famotidine (Famotidine 20 Mg Tablet) 20 mg PO BID [facility] Stop: 05/12/25 08:59 Sodium Chloride (Ns) 1,000 mls @ 999 mls/hr IV .Q1H1M ONE Stop: 04/11/25 20:48 Last Infusion: 04/11/25 22:21 Dose: Infused Sodium Chloride (Ns) 1,000 mls @ 999 mls/hr IV .Q1H1M ONE Stop: 04/11/25 21:05 Last Infusion: 04/11/25 22:22 Dose: Infused Potassium Chloride (Kcl Ivpb) 10 meq in 100 mls @ 100 mls/hr IV X1 ONE Stop: 04/11/25 21:59 Last Admin: 04/11/25 21:55 Dose: 100 mls/hr Potassium Chloride (Kcl Ivpb) 10 meq in 100 mls @ 100 mls/hr IV X1 ONE Stop: 04/11/25 21:59 Calcium Gluconate/Sodium Chloride (Calcium Gluc/Ns 1000mg Ivpb) 1,000 mg in 50 mls @ 50 mls/hr IV X1 ONE Stop: 04/11/25 22:01 Last Admin: 04/11/25 22:15 Dose: 50 mls/hr Magnesium Sulfate (Magnesium Sulfate Ivpb) 2 gm in 50 mls @ 25 mls/hr IV X1 ONE Stop: 04/11/25 23:01 Last Admin: 04/11/25 21:55 Dose: 25 mls/hr Dextrose (D5w) 500 mls @ 70 mls/hr IV .Q7H9M [facility] Stop: 05/11/25 22:29 Last Admin: 04/11/25 22:53 Dose: Not Given Dextrose (D5w) 500 mls @ 999 mls/hr IV .Q31M [facility] Stop: 05/11/25 22:44 Last Admin: 04/11/25 22:53 Dose: Not Given Dextrose (D5w) 500 mls @ 999 mls/hr IV .Q31M ONE Stop: 04/11/25 23:17 Last Admin: 04/11/25 22:53 Dose: Not Given Ondansetron HCl (Ondansetron Inj 2 Mg/Ml Inj 2 Ml) 4 mg IVP X1 ONE; Protocol Stop: 04/11/25 19:49 Last Admin: 04/11/25 20:44 Dose: 4 mg Assessment & Plan Plan Patient is a 69-year-old female admitted for acute metabolic encephalopathy, possible cardiogenic shock in the setting of severe hypothermia, electrolyte disturbances and protein calorie malnutrition. NEURO Acute metabolic encephalopathy In the setting of Hypertonic hyperNatremia, severe Acute hypothermia Dx: - On admission, temperature 85.1. Other vitals within normal limits - Alert but cannot assess orientation. Patient initially was obtunded in the ED, however after Bear hugger and electrolyte repletion, became more alert and responsive. Opened eyes spontaneously and followed with eyes. - Sodium on admission at 155 consistent with severe hyperNatremia - Head CT: Negative for acute hemorrhage, mass effect or midline shift. - Ammonia = 37 - Temp 84.7 -> 85.1 --> 85.8 Rx: - Will give warmed D5W 500 cc x 1 for hypothermia and severe hypernatremia. Continue elliot hugger until Temp >91. - Q2 hours neuro checks and temperature checks - On D5W maintenance @70 cc/h x1 bag - Repeat renal panel ordered for 00:00 04/12/2025 - Will continue to check sodium every 4 hours. Goal Na over the next 24 hours : 143-145 CVS Cardiogenic Shock ? Acute Bradycardia Hx of Aortic stenosis, moderate Possible syncope Hx of primary hypertension Dx: - Follow up trended, unclear history. Prior to this episode, patient was always alert and responsive. - Physical exam remarkable for 3/5 ejection systolic murmur radiating to the carotids - Echo 2023: Stage I diastolic dysfunction EF 60-65%, moderate AV stenosis velocity 3.1 and peak gradient 21. Thickening of the MV leaflet and mild MR and TR. - Home meds: Lisinopril 10 mg daily, aspirin 81 mg daily, Plavix 75 mg daily - Pt was started on Dopamine gtt in ED for hypotension MAP 51-53 and Bradycardia HR 50s Rx: - Follow-up med rec and start medications as tolerated - Continue Dopamine gtt 5mch/h , titrate down as tolerated - Echo ordered for further evaluation - Recommend orthostatic workup - Cardiology consult to evaluate further PULM Left base PNA, possibly aspiration Right upper lobe pulmonary nodules Bilateral pleural effusions, small Axillary lymphadenopathy Dx: - Vitals within normal limits, besides temperature - CT chest abdomen pelvis: Mild CHF, left base pneumonia likely aspiration. Right upper lobe pulmonary nodule. Multiple subcentimeter axillary lymph nodes. Small bilateral pleural effusions. - Patient is saturating 92-96% on room air in the ED. Rx: - Empirically started Vancomycin qD + Cefepime 1g q8H + Metronidazole 500 mg q8H, for aspiration pneumonia and any other concomitant infection that may be going on - Avoid penicillins such as Zosyn or Unasyn as patient has history of allergy - Aspiration precautions. Will keep patient n.p.o. for now. - Referral to speech therapy for swallow evaluation in the AM. - Recommend outpatient repeat CT chest to follow-up any changes in the pulmonary nodules - Consider in house oncology consultation for axillary lymphadenopathy GI/Hep Protein calorie malnutrition Acute on chronic normocytic anemia In the setting of Severe gastritis Proctitis, likely acute Constipation Vs. bowel ileus Dx: - Hb 7.6, MCV 80s - CT abdomen pelvis: Significant thickening of the gastric mucosa. Abundant stool in the rectosigmoid without bowel obstruction. Rectal wall thickening possible proctitis. Severe osteopenia - Protein 2.5 , Albumin 1.5 - Body weight 55 kg , BMI 19.7 - Significant muscle wasting. Loss of subcutaneous fat. - Poor nutritional intake of <50% of recommended calories. - Bedridden or otherwise significantly reduced functional capacity Rx: - Referral to advanced practice registered nurse - Consider GI consultation if Hb continue to trend low - Follow up FOBT results - Referral to speech for swallow eval. Start NG tube feeds if patient doesn't pass swallow eval RENAL Acute hypokalemia Hypomagnesemia Hypophosphatemia Hypocalcemia Dx: - K 2.4, Mg 1.1 - Ca 7.0, Phos 2.3 - Likely in the setting of poor oral intake Rx: - KCL IV 30mEq + KPhos 30mmOl - Mg Sulfate 2g + 4g - Calcium Gluc x1 - Repeat renal panel + Mg at 00:00 ENDO T2 IDDM Dx: - A1c 8.1% - Home meds: Metformin 1g BID - Blood glucose 65 on CMP Rx: - Started normal insulin sliding scale q6H while NPO - Continue Q3 hours bedside fingerstick glucose checks while on D5W - Hypoglycemia protocol in place - Day team to transition to SC insulin once patient begins oral intake - Recommend prescribing continuous glucose monitor on discharge HEME/ONC Pancytopenia Dx: WBC 2.2, Hb 7.6, RBC 2.86, PLT 34 ANC >1.5 at this time Rx: - Follow-up blood smear report - Given ANC > 1.5, patient does not require neutropenic precautions at this time - Daily CBC and CMP, monitor closely MSK/DERM Tinea Capitis Hx of LT foot metatrasal amputation and RT foot 2nd digit amputation Dx: - Physical exam shows diffuse crusted rash over the frontal scalp - History of left metatarsal amputation and right second digit amputation. Well-healed scars on physical exam Rx: - Start terbinafine topical 2 g TID for tinea capitis Nasal lesion, possibly basal cell carcinoma Axillary lymphadenopathy Dx: Lesion noted on the tip of the nose on exam, pearly edges and no discharge CT CAP: associated axillary lymphadenopathy Rx: Recommend oncology consult in house for further evaluation ICU Health maintenance: Dispo: Admit to ICU for acute metabolic encephalopathy in the setting of severe hypothermia, electrolyte disturbances and protein calorie malnutrition. Diet: NPO until swallow eval DVT ppx: Enoxaparin 40mg SC daily GI ppx: not indicated IV lines: 2 pIV Central line: No Arterial line: No Code status: FULL CODE Plan of care discussed with hospitalist Dr Carroll, - Nathan William MD PGY 3 This document was compiled using speech recognition software. Grammatical errors can be an occasional consequence of this system due to software limitations. Attending Provider Attestation/Addendum I personally saw and examined the patient with the Resident on the above date and agree with the Resident?s above note and plan. I personally spent 37 minutes of critical care time, exclusive of time spent on any procedures, in evaluation and management of this critically ill patient.
[2025-04-11 23:07] LABS: Phosphorous 2.3 mg/dL (2.4-5.1)
[2025-04-11] MEDS: CALCIUM GLUCONATE 10% INJ 1 GM/10 ML VIAL 2 GM IV (23:08)
[2025-04-11 23:14] LABS: Iron 164 mcg/dL (50-170); Percent Iron Saturation 65 % (20-55); Total Iron Binding Capacity 252 mcg/dL (250-425); Unsaturated Iron Binding 88 (225-295)
[2025-04-11] MEDS: DEXTROSE 5%-WATER 500 ML IV (23:27)
[2025-04-11] MEDS: ALBUMIN HUMAN-KJDA 25% IVPB 25 GM/100 ML BTL IV (23:35)
[2025-04-12] VITALS (104 sets, daily range): BP systolic 70–139; BP diastolic 34–74; PULSE 51–137; RESP 7–30; TEMP 31.7–37.3; O2SAT 82–100; BMI 19.6; BMI 19.5
--- NOTE | 2025-04-12 00:34 | ECHO_ITS ---
Transthoracic Echo Report Ht (in): 66 Wt (lb): 121 Exam Location: [facility] Status: Inpatient Director Of Aviation: Silvia Gandara Indications: Procedure Performed: BP: 93 / 54 HR: 84 MEASUREMENTS (Male / Female) Normal Values 2D ECHO LV Diastolic Diameter PLAX 3.9 cm 4.2 - 5.9 / 3.9 - 5.3 cm LV Systolic Diameter PLAX 2.3 cm IVS Diastolic Thickness 1.3 cm 0.6 - 1.0 / 0.6 - 0.9 cm LVPW Diastolic Thickness 1.2 cm 0.6 - 1.0 / 0.6 - 0.9 cm LV Relative Wall Thickness 0.6 LVOT Diameter 1.8 cm LA Volume Index 39.3 cm?/m? 16 - 28 cm?/m? Ascending Aorta Diameter 2.2 cm M-MODE AV Cusp Separation MM 0.9 cm DOPPLER AV Peak Velocity 339.0 cm/s AV Peak Gradient 46.0 mmHg AV Mean Gradient 28.0 mmHg AV Velocity Time Integral 78.9 cm LVOT Peak Velocity 124.0 cm/s LVOT Peak Gradient 6.2 mmHg LVOT Velocity Time Integral 29.5 cm LVOT Cardiac Index 3958.6 cm?/min?m? AV Area Cont Eq vti 1.0 cm? AV Area Cont Eq pk 0.9 cm? MV Area PHT 5.2 cm? Mitral E Point Velocity 110.0 cm/s Mitral A Point Velocity 98.5 cm/s Mitral E to A Ratio 1.1 LV E' Lateral Velocity 9.8 cm/s Mitral E to LV E' Lateral Ratio 11.2 LV E' Septal Velocity 5.0 cm/s Mitral E to LV E' Septal Ratio 22.0 TR Peak Velocity 287.3 cm/s TR Peak Gradient 33.0 mmHg PV Peak Velocity 103.0 cm/s PV Peak Gradient 4.2 mmHg FINDINGS Left Ventricle Normal left ventricular size, systolic function with no obvious regional wall motion abnormalities.Mild LVH. Normal left ventricular diastolic filling pattern for age. The ejection fraction is visually estimated at 60-65 %. Right Ventricle The right ventricle is normal in size and systolic function. The estimated right ventricular systolic pressure, 40 mmHg with RAP 3. Left Atrium The left atrium is normal by two-dimensional, color flow and Doppler imaging with no structural abnormalities, no thrombus formation present. Right Atrium The right atrium is normal by two-dimensional imaging, color flow and Doppler imaging with no structural abnormalities, no thrombus formation present. Atrial Septum The interatrial septum appears normal with no evidence of a shunt. Aorta The aorta is normal by two-dimensional, color flow and Doppler interrogation. Mitral Valve Mild thickening of the mitral valve leaflets.[id number] mitral regurgitation. . Aortic Valve The aortic valve is trileaflet. Moderate stenosis, mean gradient 28mmHg, vmax 3.3 m/s. There is mild aortic valve regurgitation. Tricuspid Valve The tricuspid valve is normal by two-dimensional, color flow and Doppler interrogation. There is mild tricuspid valve regurgitation. Pulmonic Valve The pulmonic valve is not well visualized. There is no significant pulmonic valve regurgitation. Vessels The pulmonary artery appears normal. The inferior vena cava pulmonary and hepatic veins appear normal. Pericardium The pericardium is normal by two-dimensional imaging. There is no significant pericardial effusion. CONCLUSIONS Indication: shock. Moderate Normal left ventricular size and function. Mild LVH. Stage I diastolic dysfunction. Estimated EF 60-65% Normal RV size and function. RVSP 40 mmHg with RAP 3. Moderate AV stenosis, mean gradient 31 mmHg, vmax 3.7 to 3.8m/s. MELE 1 sq cm Mild thicken MV leaflets. Mild MR, AI and TR. Compared to prior study of 06/24/24- increased velocities. Jose Castellanos (Electronically Signed) Final Date: 12 April 2025 14:02
[2025-04-12 01:09] LABS: Albumin, Serum 3.4 gm/dL (3.4-4.8); Anion Gap 7 (7-16); BUN/Creatinine Ratio 42 Ratio (12-20); Blood Urea Nitrogen 21 mg/dL (9-23); Calcium 8.7 mg/dL (8.3-10.6); Calcium (Corrected) 9.2 mg/dL (8.5-10.1); Carbon Dioxide 24.4 mMol/L (20.0-31.0); Chloride 109 mMol/L (98-107); Creatinine (Component) 0.5 mg/dL (0.6-1.3); Estimated Creatinine Clearance 90.1 mL/min (>60); Magnesium 2.3 mg/dL (1.6-2.6); Osmolality,Calculated 300 (275-295); Phosphorous 2.6 mg/dL (2.4-5.1); Potassium 4.7 mMol/L (3.4-5.1); Sodium 140 mMol/L (136-145); eGFR > 60 See Note
[2025-04-12 01:17] LABS: Glucose 421 mg/dL (74-106)
[2025-04-12] MEDS: SODIUM CHLORIDE 0.9% 250 ML 250 ML 999 ML IV (01:50)
--- NOTE | 2025-04-12 02:00 | EVENTNT_ITS ---
Documentation for date of: 04/12/25 Event Note Event Note: 1:30 Renal panel : corrected Na for glucose at 145 Hold D5W gtt for now as goal correction achieved for first 24 hours. All other electrolytes corrected as well. Temperature now 89.1, continue Laverne Hugger for now. Patient is unable to tolerate dopamine titration, will continue gtt at this time, likely cardiogenic shock - Nathan William M.D. PGY3 Disclaimer: Minor errors in etl analyst developer may be present as this note was dictated using voice recognition software.
[2025-04-12] MEDS: ALBUMIN HUMAN 25% IVPB 12.5 GM/50 ML BTL IV (02:07)
[2025-04-12] MEDS: metroNIDAZOLE/NS 500 MG IVPB 500 MG/100 ML BAG 200 MG IV (02:12)
[2025-04-12] MEDS: DOPamine/D5w 400 MG IVPB 400 MG/250 ML BAG 10.369 MG IV (02:18)
[2025-04-12] MEDS: Vancomycin Inj 1,000 MG in SODIUM CHLORIDE 0.9% 250 ML 250 ML 120 MG IV (02:23)
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
[2025-04-12] MEDS: CEFEPIME INJ 1 GM in SODIUM CHLORIDE 0.9% (Popper) 50 ML IV ×3 (03:32→21:44)
--- NOTE | 2025-04-12 05:11 | PC.NURSE ---
[address] William to decrease dopamine to 4 and then turn off in an hour, at 0210 map was still lower than 65, Dr. William was notified and orders were received to restart Dopamine at the starting rate.
[2025-04-12 07:20] LABS: Basophils # (Auto) 0.0 Thou/mm3 (0.0-0.2); Basophils % (Auto) 1 % (0-2.5); Eosinophils # (Auto) 0.3 Thou/mm3 (0.0-0.5); Eosinophils % (Auto) 8 % (0-10); Hematocrit 32.2 % (36.0-46.0); Hemoglobin 10.7 g/dL (12.0-16.0); Immature Granulocytes Auto 0.03 Thou/mm3 (0.00-0.00); Lymphocytes # (Auto) 0.3 Thou/mm3 (1.0-4.8); Lymphocytes % (Auto) 7 % (10-50); Mean Corpuscular HGB Conc 33.2 g/dl (31.0-37.0); Mean Corpuscular Hemoglobin 26.6 pg (25.0-35.0); Mean Corpuscular Volume 80 fL (80-100); Monocytes # (Auto) 0.3 Thou/mm3 (0.0-0.8); Monocytes % (Auto) 7 % (0-12); Neutrophils # (Auto) 3.4 Thou/mm3 (1.8-7.7); Neutrophils % (Auto) 78 % (37-80); Nucleated Red Blood Cell # 0.02 Thou/mm3 (0.00-0.00); Nucleated Red Blood Cell % 1 /100 WBC (0); RDW Standard Deviation 50.2 fL (36.4-46.3); Red Blood Count 4.03 Miln/mm3 (4.00-5.20); White Blood Count 4.3 Thou/mm3 (3.6-11.0)
[2025-04-12 07:22] LABS: Platelet Count 59 Thou/mm3 (140-440)
[2025-04-12 07:40] LABS: Alanine Aminotransferase 44 U/L (10-49); Albumin, Serum 3.3 gm/dL (3.4-4.8); Albumin/Globulin Ratio 1.9 (1.2-2.2); Alkaline Phosphatase 73 U/L (46-116); Anion Gap 10 (7-16); Aspartate Amino Transferase 47 U/L (0-34); BUN/Creatinine Ratio 50 Ratio (12-20); Bilirubin,Total 0.5 mg/dL (0.3-1.2); Blood Urea Nitrogen 25 mg/dL (9-23); Calcium 9.0 mg/dL (8.3-10.6); Calcium (Corrected) 9.6 mg/dL (8.5-10.1); Carbon Dioxide 23.5 mMol/L (20.0-31.0); Cardiac Risk Estimate 2.6 RATIO (3.7-5.6); Chloride 117 mMol/L (98-107); Cholesterol 123 mg/dL (132-200); Creatinine (Component) 0.5 mg/dL (0.6-1.3); Estimated Creatinine Clearance 90.1 mL/min (>60); Globulin 1.7 gm/dL (2.3-3.5); Glucose 80 mg/dL (74-106); HDL Cholesterol 48 mg/dL (40-60); LDL Cholesterol,Calculated 53 mg/dL (0-130); Magnesium 2.1 mg/dL (1.6-2.6); Osmolality,Calculated 301 (275-295); Phosphorous 2.8 mg/dL (2.4-5.1); Potassium 4.4 mMol/L (3.4-5.1); Sodium 150 mMol/L (136-145); Total Protein 5.0 gm/dL (5.7-8.2); Triglycerides 112 mg/dL (30-150); eGFR > 60 See Note
[2025-04-12 08:32] LABS: Creatine Kinase 29 U/L (34-171)
[2025-04-12] MEDS: VANCOMYCIN/NS 1 GM IVPB 200 ML IV ×2 (09:08→22:15)
[2025-04-12] MEDS: Norepinephrine/D5W 8mg/250ml 8 MG/250 ML BAG 5.184 MG IV (10:06)
--- NOTE | 2025-04-12 10:22 | PD.RESCONSUL ---
HPI Data of Consult Requesting Physician: Erki Carroll MD Admitting Provider: Erik Carroll MD Attending Provider: Erik Carroll MD Primary Care Provider: JENNIFER Zhang Consult Narrative History of present illness: Patient is a 69-year-old female with past medical history of primary hypertension, type II NIDDM, CAD s/p CABG (2019), moderate aortic stenosis, CVA, seizure disorder, age-related dementia, Left foot metatarsal amputation, right foot second digit amputation and COPD, who presented to the hospital due to worsening mentation. Patient continues to have altered mental status, history was unable to be obtained. Per documentation, patient was last seen normal around 1PM yesterday, and was found unconscious on the floor. On arrival, temperature 84.7, HR 40s and hypotension MAP 51-52. Labs showed electrolyte derangements including potassium of 2.4 and magnesium of 1.1. On physical exam, patient had severe systolic murmur radiating to carotids. Patient was previously seen during hospitalization in 06/2024 for pre-operative cardiac evaluation for hip fracture repair. EKG at the time showed normal sinus rhythm with Q waves in anteroseptal leads indicating old VA. Patient does have a history of CAD and CABG. Echo showed normal LV size and function. Mild LVH. Stage I diastolic dysfunction. Estimated EF 60-65%. Normal RV size and function. Moderate AV stenosis, mean gradient 21mmHg, vmax 3.1 m/s. Mild thicken MVL. Midl MR, AI. Trace TR. Cardiology consulted for cardiogenic shock. 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 cc:: cc: Erik Carroll MD Exam Vital Signs Temp Pulse Resp BP Pulse Ox O2 Del Method 98.4 F 78 21 H 78/46 L 95 Room Air 04/12/25 05:45 04/12/25 10:06 04/12/25 07:00 04/12/25 10:06 04/12/25 07:00 04/11/25 22:23 Narrative Exam Physical Exam General: Awake and in no acute distress. Not conversational. Very confused. Unable to answer questions appropriately. Cachectic. HEENT: Normocephalic, atraumatic, mucous membranes dry. Heart: Regular rate and rhythm, normal S1 and S2, 4/5 systolic murmur radiating to carotids. Lungs: Clear to auscultation with no wheezing or crackles. Abdomen: Soft, nondistended, nontender, positive bowel sounds. No guarding or rebound tenderness. Neurologic: Alert and oriented x0. Unable to assess as patient is noncompliant with commands. Extremities: No edema. Left foot transmetatarsal amputation. Right foot second digit amputation. Skin: No rash or ecchymoses. Tinea capitis at frontal scalp. Petechial lesions bilateral lower extremities. Results Labs 04/13/25 04:30 04/13/25 11:00 Labs: Short CBC 04/11/25 04/12/25 Range/Units 20:05 06:41 WBC 2.2 L 4.3 D (3.6-11.0) Thou/mm3 Hgb 7.6 L 10.7 L D (12.0-16.0) g/dL Hct 23.8 L 32.2 L (36.0-46.0) % Plt Count 34 L 59 L D (140-440) Thou/mm3 BMP 04/11/25 04/12/25 04/12/25 20:05 00:33 06:41 Sodium 155 H 140 D 150 H D Potassium 2.4 L* 4.7 D 4.4 Chloride 129 H* 109 H 117 H Carbon Dioxide 18.5 L 24.4 23.5 BUN 18 21 25 H Creatinine < 0.2 L 0.5 L 0.5 L Glucose 65 L 421 H* D 80 D Calcium < 5.0 L* 8.7 D 9.0 Cardiac Enzymes 04/11/25 04/12/25 Range/Units 20:05 06:41 Total Creatine Kinase 26 L 29 L (34-171) U/L Liver Function 04/11/25 04/12/25 04/12/25 Range/Units 20:05 00:33 06:41 Total Bilirubin 0.2 L 0.5 (0.3-1.2) mg/dL Direct Bilirubin < 0.1 (0.0-0.3) mg/dL AST 31 47 H (0-34) U/L ALT 27 44 (10-49) U/L Alkaline Phosphatase 45 L 73 D (46-116) U/L Albumin 1.5 L 3.4 D 3.3 L (3.4-4.8) gm/dL Urine 04/11/25 Range/Units 20:05 Urine Color Yellow (Lt Yel-Yel) Urine Clarity Clear (Clear/Hazy) Urine pH 5.5 (5.0-7.0) Ur Specific Crockett 1.018 (1.001-1.035) Urine Protein Trace (Neg - Trace) Urine Glucose (UA) Negative (Negative) ABG Interpretation ABG results: 04/11/25 21:53 ABG pH 7.29 L ABG pCO2 53 H ABG pO2 90 ABG HCO3 25 ABG O2 Saturation 97 ABG Base Excess -2 Quality Measures Quality Measures none Advance care planning discussed with:: other Medications Home Medications and Allergies Home Medications ?Medication ?Instructions ?Recorded ?Confirmed ?Type clopidogrel 75 mg tablet (Plavix) 75 mg PO QDAY 10/31/19 04/13/25 History isosorbide mononitrate 60 mg 60 mg PO QDAY 10/31/19 04/13/25 History tablet,extended release 24 hr aspirin 81 mg tablet,delayed 81 mg PO QAM 04/23/21 04/13/25 History release Allergies Allergy/AdvReac Type Severity Reaction Status Date / Time lettuce Allergy Severe SWELLING Verified 04/11/25 19:46 Penicillins Allergy Severe HIVES AND Verified 04/11/25 19:46 RESPIRATORY PROBLEMS shellfish derived Allergy Severe Rash Verified 04/11/25 19:46 adhesive Allergy Mild Blister Verified 04/11/25 19:46 iodine Allergy Mild RASH AND Verified 04/11/25 19:46 BLISTERS jaramillo pepper (green pepper) Allergy Unknown RASH, Verified 04/11/25 19:46 SWELLING, SORE TONGUE egg Allergy Unknown RASH Verified 04/11/25 19:46 Visit Medications Dextrose (Dextrose 50%-Water Inj 50 Ml Syringe) 50 ml IV Q15MIN PRN PRN Reason: BG <50 OR BG <70 & pt unresponsive Stop: 05/12/25 00:07 Enoxaparin Sodium (Enoxaparin Sod Inj 40 Mg/0.4 Ml Syringe) 40 mg SC QDAY [facility] Stop: 04/26/25 20:59 Glucagon (Glucagon Inj 1 Mg Vial) 1 mg IM Q15MIN PRN PRN Reason: BG <70, and no IV access Cefepime HCl 1 gm/ Sodium (Chloride) 50 mls @ 100 mls/hr IV Q8HR [facility] Stop: 04/19/25 01:42 Last Admin: 04/12/25 05:37 Dose: Not Given Dopamine HCl/Dextrose (Intropin In D5w Ivpb) 400 mg in 250 mls @ 10.369 mls/hr IV .Q24H [facility]; Protocol Stop: 05/12/25 01:51 Last Titration: 04/12/25 06:00 Dose: 7 mcg/kg/min, 14.516 mls/hr Vancomycin/Sodium Chloride (Vancomycin/Ns 1 Gm Ivpb) 200 mls @ 120 mls/hr IV Q12H [facility]; Protocol Stop: 04/19/25 09:59 Last Admin: 04/12/25 09:08 Dose: 120 mls/hr Norepinephrine/Dextrose (Levophed In D5w 8mg/250ml) 8 mg in 250 mls @ 5.184 mls/hr IV .Q24H PRN; Protocol PRN Reason: PER PROTOCOL Stop: 05/12/25 07:58 Last Admin: 04/12/25 10:06 Dose: 0.05 mcg/kg/min, 5.184 mls/hr Insulin Human Lispro (Insulin Lispro (Admelog) 1 Unit/0.01 Ml Unit) 0 unit SC Q6HR [facility]; Protocol Stop: 05/12/25 05:59 Last Admin: 04/12/25 06:14 Dose: Not Given Ondansetron HCl (Ondansetron Inj 2 Mg/Ml Inj 2 Ml) 4 mg IVP Q6H PRN; Protocol PRN Reason: NAUSEA OR VOMITING Stop: 05/11/25 22:22 Pantoprazole Sodium (Pantoprazole Inj 40 Mg Vial) 40 mg IVP QDAY [facility] Stop: 05/12/25 10:29 Pharmacy Consult (Vancomycin Pharmacy To Dose 1 Each Each) 1 each IV QDAY PRN PRN Reason: RX Stop: 05/12/25 08:59 Terbinafine HCl (Terbinafine Hcl Cr 1% 12 Gm Tube) 2 gm TOP TID [facility] Stop: 05/11/25 22:59 Discontinued Medications Calcium Gluconate (Calcium Gluconate 10% Inj 1 Gm/10 Ml Vial) 2 gm IV X1 ONE Stop: 04/11/25 22:31 Last Admin: 04/11/25 23:08 Dose: 2 gm Dextrose (Dextrose 50%-Water Inj 50 Ml Syringe) 50 ml IVP X1 ONE Stop: 04/11/25 21:02 Last Admin: 04/11/25 22:05 Dose: Not Given Famotidine (Famotidine 20 Mg Tablet) 20 mg PO BID [facility] Stop: 05/12/25 08:59 Sodium Chloride (Ns) 1,000 mls @ 999 mls/hr IV .Q1H1M ONE Stop: 04/11/25 20:48 Last Infusion: 04/11/25 22:21 Dose: Infused Dopamine HCl/Dextrose (Intropin In D5w Ivpb) 400 mg in 250 mls @ 10.369 mls/hr IV .Q24H [facility]; Protocol Stop: 05/11/25 19:48 Last Titration: 04/12/25 02:00 Dose: 4 mcg/kg/min, 8.295 mls/hr Sodium Chloride (Ns) 1,000 mls @ 999 mls/hr IV .Q1H1M ONE Stop: 04/11/25 21:05 Last Infusion: 04/11/25 22:22 Dose: Infused Potassium Chloride (Kcl Ivpb) 10 meq in 100 mls @ 100 mls/hr IV X1 ONE Stop: 04/11/25 21:59 Last Infusion: 04/11/25 23:13 Dose: Infused Potassium Chloride (Kcl Ivpb) 10 meq in 100 mls @ 100 mls/hr IV X1 ONE Stop: 04/11/25 21:59 Last Admin: 04/11/25 23:07 Dose: 100 mls/hr Calcium Gluconate/Sodium Chloride (Calcium Gluc/Ns 1000mg Ivpb) 1,000 mg in 50 mls @ 50 mls/hr IV X1 ONE Stop: 04/11/25 22:01 Last Infusion: 04/11/25 23:15 Dose: Infused Magnesium Sulfate (Magnesium Sulfate Ivpb) 2 gm in 50 mls @ 25 mls/hr IV X1 ONE Stop: 04/11/25 23:01 Last Infusion: 04/11/25 23:45 Dose: Infused Lactated Ringer's (Lactated Ringers) 1,000 mls @ 500 mls/hr IV .Q2H ONE Stop: 04/12/25 00:23 Last Admin: 04/11/25 23:12 Dose: Not Given Magnesium Sulfate (Magnesium Sulfate Ivpb) 4 gm in 50 mls @ 12.5 mls/hr IV X1 ONE Stop: 04/12/25 02:26 Last Admin: 04/12/25 02:10 Dose: Not Given Potassium Chloride (Kcl Ivpb) 10 meq in 100 mls @ 100 mls/hr IV Q1H [facility] Stop: 04/12/25 02:29 Last Admin: 04/12/25 06:16 Dose: Not Given Dextrose (D5w) 500 mls @ 70 mls/hr IV .Q7H9M [facility] Stop: 05/11/25 22:29 Last Admin: 04/11/25 22:53 Dose: Not Given Albumin Human (Albuminex 25% Ivpb) 25 gm in 100 mls @ 100 mls/hr IV X1 ONE Stop: 04/11/25 23:32 Last Admin: 04/11/25 23:35 Dose: 100 mls/hr Albumin Human (Albuminar-25 Ivpb) 12.5 gm in 50 mls @ 50 mls/hr IV X1 ONE Stop: 04/11/25 23:31 Last Admin: 04/12/25 02:07 Dose: 50 mls/hr Dextrose (D5w) 500 mls @ 999 mls/hr IV .Q31M [facility] Stop: 05/11/25 22:44 Last Admin: 04/11/25 22:53 Dose: Not Given Dextrose (D5w) 500 mls @ 999 mls/hr IV .Q31M ONE Stop: 04/11/25 23:17 Last Admin: 04/11/25 22:53 Dose: Not Given Dextrose (D5w) 500 mls @ 500 mls/hr IV .Q1H ONE Stop: 04/11/25 23:56 Last Infusion: 04/11/25 23:50 Dose: Infused Ceftriaxone Sodium/Dextrose (Rocephin/D5w 1gm Iv Premix) 1 gm in 50 mls @ 100 mls/hr IV QDAY [facility] Stop: 04/18/25 23:29 Last Admin: 04/12/25 02:09 Dose: Not Given Metronidazole (Flagyl 500 Mg Iv) 500 mg in 100 mls @ 200 mls/hr IV Q8HR [facility] Stop: 04/18/25 23:30 Last Admin: 04/12/25 06:15 Dose: Not Given Metronidazole (Flagyl 500 Mg Iv) 500 mg in 100 mls @ 200 mls/hr IV X1 ONE Stop: 04/12/25 00:14 Last Admin: 04/12/25 02:12 Dose: 200 mls/hr Vancomycin HCl 1,000 mg/ (Sodium Chloride) 250 mls @ 120 mls/hr IV X1 ONE Stop: 04/12/25 01:49 Last Admin: 04/12/25 02:23 Dose: 120 mls/hr Potassium Phosphate (Pot Phos 15 Mmol In Ns 250 Ml) 15 mmol in 250 mls @ 62.5 mls/hr IV Q4H [facility] Stop: 04/12/25 08:31 Last Admin: 04/12/25 02:08 Dose: Not Given Dextrose (D5w) 500 mls @ 75 mls/hr IV .Q6H40M ONE Stop: 04/12/25 07:28 Last Admin: 04/12/25 02:11 Dose: Not Given Sodium Chloride (Ns) 250 mls @ 999 mls/hr IV .Q16M ONE Stop: 04/12/25 01:54 Last Admin: 04/12/25 01:50 Dose: 999 mls/hr Ondansetron HCl (Ondansetron Inj 2 Mg/Ml Inj 2 Ml) 4 mg IVP X1 ONE; Protocol Stop: 04/11/25 19:49 Last Admin: 04/11/25 20:44 Dose: 4 mg Assessment & Plan Plan Patient is a 69-year-old female with past medical history of primary hypertension, type II NIDDM, CAD s/p CABG ([facility], 2020), moderate aortic stenosis, CVA, seizure disorder, age-related dementia, Left foot metatarsal amputation, right foot second digit amputation and COPD, who presented to the hospital due to worsening mentation. Admitted to ICU for acute metabolic encephalopathy in setting of hypertonic hyponatremia and acute hypothermia. Cardiology consulted due to concern for cardiogenic shock. #Acute bradycardia, resolved #Cardiogenic shock #History of aortic stenosis, moderate #History of hypertension #History CVA Home meds include lisinopril 10 mg daily, aspirin 81 mg daily, Plavix 75 mg daily. On physical exam, auscultated 4/5 ejection systolic murmur radiating to carotids. TTE 06/23/2024 showed normal LV size and function. Mild LVH. Stage I diastolic dysfunction. Estimated EF 60-65%. Normal RV size and function. Moderate AV stenosis, mean gradient 21mmHg, vmax 3.1 m/s. Mild thicken MVL. Midl MR, AI. Trace TR. Bradycardia likely secondary to severe hypothermia. Heart rate now improved to 70s to 80s with conservative treatment of hypothermia. ?Started on dopamine gtt in ED for hypotension MAP 51-53 and Bradycardia HR 50s ?Switched to Levophed 0.05 mcg/kg/min by primary team due to persistently low maps and improved heart rate. Wean as tolerated. ?TTE ordered #Acute hypokalemia #Hypomagnesemia # Hypophosphatemia ##Hypocalcemia Presented with potassium of 2.4 and magnesium 1.1. Overnight given total potassium chloride 40 mEq, magnesium 2 g, calcium gluconate x1. 04/12/2025: Potassium improved to 4.7 at midnight. Calcium improved to 8.7, phosphorus 2.6, magnesium 2.3. ?Keep potassium above 4 and magnesium above 2 #Acute on chronic normocytic anemia Hemoglobin 7.6. In setting of acute gastritis and severe malnutrition. BMI 19.6. ?Anemia workup per primary team #[id number] type 2 diabetes #Hx of LT foot metatrasal amputation and RT foot 2nd digit amputation A1c 8.1. Home meds include metformin 1000 mg twice daily. ?SSI per primary team #Acute encephalopathy in setting of #Hypotonic hyponatremia, severe #Acute hypothermia #Left base PNA, possibly aspiration #Right upper lobe pulmonary nodules #Bilateral pleural effusions, small #Protein calorie malnutrition #Pancytopenia #Proctitis, likely acute #Constipation Vs. bowel ileus #Tinea Capitis #Nasal lesion, possibly basal cell carcinoma #Axillary lymphadenopathy Thank you for your consultation, please do not hesitate to reach out if you have any question or concern Patient plan of care was discussed with the attending physician, Dr. Castellanos. Kenisha Marsh, PGY-1 Attending Provider Attestation/Addendum I have personally seen and examined the patient separately on the above date of service and discussed the plan of care with the resident. I reviewed the resident Dr. Kenisha Marsh consultation progress note and agree with the resident findings and plan in the note above and have also edited the documentation to reflect my findings and plan. 69-year-old female with past medical history of CAD s/p CABG with history of previous multiple PCI, moderate aortic stenosis, CVA/stroke, seizure disorder with Keppra, essential hypertension, hyperlipidemia, baseline dementia, slurred speech, history of left transmetatarsal amputation with questionable PAD, history of fall with displaced intra-articular fracture of the left hip status post open reduction internal fixation in June 2024 was brought in to the emergency department of worsening altered mental status. Patient was completely obtunded at home and was brought in by ambulance to the emergency department. No family apparently at the bedside. No significant history was obtained and emergency department. Patient was hypothermic at 84.7 F with heart rate of 40s and hypotension with a MAP of 50. WBC was 2.2, hemoglobin 7.6, platelets 34 sodium 155 magnesium 1.1 potassium 2.4 calcium 7.0 chloride 129 and albumin 1.4 with total protein of 2.5 and weight of 55 pH of 7.29 ammonia 37 and pCO2 was 53. Chest x-ray with questionable left-sided pneumonia secondary to aspiration. Had CT negative. CT chest abdominal with altered showed small bilateral pleural effusions along with significant thickening of gastric mucosa and some constipation. Cardiology consulted for further evaluation of the shock with possible cardiogenic component given her history of CAD with history of moderate aortic stenosis. Patient was initially started on dopamine drip with improvement of her and her heart rates as well as the blood pressure. 1. Shock mostly secondary to the hypothermia in addition to the possible septic shock or distributive shock -unlikely cardiogenic shock 2. Severe hypothermia 3. Moderate aortic valve stenosis 4. History of CAD s/p CABG with history of previous multiple PCI-no further details. 5. Bradycardia-transient now resolved 6. Severe heart rate abnormalities including severe hypokalemia 2.4, severe hypomagnesemia at 1.1, severe hypocalcemia and severe hypophosphatemia along with hyponatremia 7. Altered mental status and encephalopathy-mostly metabolic 8. Severe protein calorie malnutrition with total protein of 2.5 and albumin of 1.5. 9. Pancytopenia 10. History of CVA/stroke 11. Seizure disorder 12. Essential hypertension 13. Hyperlipidemia 14. Baseline dementia 15. History of questionable PAD with left transmetatarsal amputation and right toe amputation 16 history of COPD As noted above patient shock etiology is unlikely cardiogenic mostly secondary to the severe hyperkalemia along with possible septic shock distributive shock. Patient was bradycardic along with hypotension on admission which improved with rewarming with a Laverne hugger. Injury was started on dopamine with improvement in heart rate but patient was tachycardic and was switched to Levophed drip at the present point of time as she continues to be hypotensive. Patient has possible sepsis with underlying left lower lobe pneumonia. Send patient with known previous history of moderate aortic stenosis noted on the echo in June 2024 Previous echo from June 2024 reviewed which showed normal LV size and function. Mild LVH. Stage I diastolic dysfunction. Estimated EF 60-65%. Normal RV size and function. Moderate AV stenosis, mean gradient 21mmHg, vmax 3.1 m/s. Mild thicken MVL. Midl MR, AI. Trace TR. Recommend repeat echocardiogram at the present moment to evaluate if her moderate aortic stenosis is probably to any kind of severe aortic stenosis and provide evaluate LV function RV function as well as diastolic function. Check TSH A1c lipid profile as well as free T4 for further cardiac risk stratification given her history of CAD status post PCI as well as CABG. Even if the patient has severe aortic stenosis it is unlikely the patient will be a candidate for TAVR given his multiple comorbidities along with her severe protein calorie malnutrition and will not have good outcome as she is unable to do any kind of rehab. Apparently is bedbound with dementia. Complete workup is to be done for the same to rule out any underlying malignancy. Can consider TAVR for her eventually if she improves clinically. Patient presented with altered mental status and acute metabolic encephalopathy due to unclear etiology at the present moment of time. Has multiple electrolyte abnormalities as noted above which are being aggressively replaced. Patient still continues to be hyponatremic with free water deficit. Overall patient appears to have poor oral intake as the patient was also noted to have severely low albumin at 1.5 as well as total protein at 2.5. Appears to have severely protein calorie malnourishment. Workup as per primary. There is a high probability of sudden, clinically significant or life threatening deterioration in the patient condition which required the highest level of physician preparedness to intervene urgently. I have personally spent 35 minutes of critical care time, exclusive of time spent on any procedures, in evaluation and management of this critically ill patient. Management of rest of the medical conditions as per primary team and other consultants. Thank you for the consult and allowing me to participate in the care of the patient. Cardiology will continue to follow. Jose Castellanos M.D. Interventional Cardiology
[2025-04-12 11:13] LABS: Slide Review Platelets confirmed
--- NOTE | 2025-04-12 11:28 | PC.SS ---
SS follow up note; SS attempted phone contact with patient's son, Jorge Comer, however no response. SS left message for son to return back.
--- NOTE | 2025-04-12 11:29 | PC.SS ---
Patient Jill Holden is a 69 Year old female admitted for Hypothermia. SS contacted patients sister, Naz Rivera in order to complete initial assessment and verify demographic information. Patient's sister reports patient lives at home with her son and daughter in law. Patient's son, Souleymane Patel is surrogate decision maker, [phone]. Patient's sister reports patient is non ambulatory and utilizes a wheelchair, Shower chair and frantz lift. Patient needs assistance completing ADL's. Patients sister reports patient's PCP is Jose Angel Reyes. [facility] Patient's last PCP appointment was last week. Patient is being followed by [facility] and patient's family would like for [facility] to continue to follow patient when medically cleared. Discharge plan is for the patient to return home. Patient possesses coverage for ambulance transport home. SS will assist with arranging transportation. No further discharge needs identified by the family. Discharge Plan: Home Next of Kin: SonJorge
--- NOTE | 2025-04-12 11:43 | PC.CM ---
Patient is opened to [facility] health. She will need home health orders if she returns home.
[2025-04-12] MEDS: DEXTROSE 50%-WATER INJ 50 ML SYRINGE IV ×2 (11:51→12:20)
--- NOTE | 2025-04-12 15:02 | PCS.ST ---
Swallowing evaluation not yet completed. Pt is unable to actively participate today. ST will check status in AM.
--- NOTE | 2025-04-12 16:31 | ESPR_ITS ---
<Statement entered by Carrington Oakes MD - 04/12/25 21:19> I discussed and supervised with the audit intern physician who took care of this patient. I personally saw and examined the patient. I agree with most of the assessment and plan. Disclaimer: Despite multiple revisions, due to the dictation software being used, the document bellow may not be free of grammatical errors including phonetic/typographic errors. However, this does not deter from our commitment to providing health care in the patient's best interest in mind. Plan of care discussed with attending Physician Dr. Nico Oakes MD PGY-3 Documentation for date of: 04/12/25 Subjective Subjective Interval history: Mr. Comer is a 69-year-old female with past medical history of primary hypertension, type II NIDDM, CAD s/p CABG, CVA, seizure disorder, age-related dementia, Left foot metatarsal amputation, right foot second digit amputation and COPD, who presented to the hospital due to worsening mentation. Patient was found completely obtunded at home and was BIBA from home. As per ED documentation, patient was last seen in her normal state this afternoon around 1 PM. Patient is otherwise bedbound, but as per previous documentation is able to ambulate with a walker. On my assessment in the ED, patient was alert but minimally responsive to questions, unable to assess orientation at this time. She is a poor historian most of the history was obtained from ED charting and previous health records. Family was not present at bedside to provide history at this time. Temperature 84.7 on presentation, HR 40s and hypotension MAP 51-52. ED started patient on Dopamine gtt emperically, possible cardiogenic shock. Initial lab workup remarkable for pancytopenia WBC 2.2, RBC 2.86, Hb 7.6, PLT 34. On chemistry, acute electrolyte disturbances noted ? Na 155, OSM 307, K2.4, Mg 1.1, Phos 2.3, Ca 7 and chloride 129. ABG showed pH 7.29, bicarb 18.5, CO2 53. Ammonia 37, 7 protein calorie malnutrition?protein 2.5, albumin 1.5, BMI 19.7 and weight 55.3. Chest x-ray showed possible left-sided consolidation, left base pneumonia likely aspiration. Head CT negative for any acute findings. CT chest abdomen pelvis remarkable for Left base pneumonia, consider aspiration. Right upper lobe pulmonary nodules. Multiple subcentimeter axillary lymph nodes. Small bilateral pleural effusions. Significant thickening of the gastric mucosa, differential would include gastritis. Abundant stool in the rectosigmoid but no bowel obstruction. Rectal wall thickening, consider proctitis, recommend direct inspection. Severe osteopenia Allergies: Penicillin?anaphylaxis Shellfish?anaphylaxis Iodine?blisters Social history: Marital?Status:? Social?History?Note:?Lives?at home with family Family history: Unknown ROS Unobtainable: unobtainable due to mental status Patient was admitted to ICU for the work-up and management of acute metabolic encephalopathy in the setting of severe hypothermia and severe hypernatremia. Interval History: 04/12/2025: Patient this morning was on precautions for suspected scabies. Patient was not very interactive with us this morning. Patient had a gcs of 10 with a score for eyes of 3, verbal of 1, motor of 6. Patient had the bear hugger this morning for hypothermia. Vitals on assessment of patient were stable, with blood pressure soft at 99/53. Patient's wbc, hgb and plt count improved since the previous night. Patient's electrolytes were largely improved with the exception of sodium continuing to be elevated. Patient had a bedside echo done which did not show any septal wall hypokinesis, the heart appeared to be pumping well. The cheetah was ordered to assess fluid response. Patient had dopamine discontinued and was started on levophed. MRI brain was wanted to be done but could not given the metal in her body. Wound care is on board and caring for her, recommended moisturizing ointment for her wounds. Patient reportedly had treatment for scabies recently, in February. Patient's son was called and informed us she takes Keppra 1000 mg BID. Exam Vital Signs Temp Pulse Resp BP Pulse Ox O2 Del Method 98.8 F 73 22 H 84/48 L 96 Room Air 04/12/25 16:00 04/12/25 16:00 04/12/25 16:00 04/12/25 16:00 04/12/25 16:04/12/25 12:00 Narrative Exam Constitutional Alert, spontaneously open eyes and follows with it. Unable to assess orientation. Under heating blanket (bear hugger) HEENT Vision grossly intact. Patent nares, crusting on nasal tip, possible BCC lesion. Trachea midline. Respiratory Chest normal on inspection and clear to auscultation bilaterally. Cardiovascular S1 and S2 audible, RRR. Systolic ejection mumur 3/5 radiating to the carotids, bruit + Abdominal Abdominal Bruit; BS + but very slow ; non tender to palpation in all quadrants. Musculoskeletal Extremities tone within normal limits. Non pitting B/L LE edema. LT foot tarsal amputation. RT foot 2nd digit amputation. Neurological CN II - XII grossly intact. Extremity motor and sensation grossly intact. Skin Tinea capitis frontal scalp. Petechial lesions diffusely. Warm extremities Objective Labs 04/13/25 04:30 04/13/25 04:30 Labs: Laboratory Results - last 24 hr 04/11/25 04/11/25 04/11/25 20:05 21:05 21:53 WBC 2.2 L RBC 2.86 L Hgb 7.6 L Hct 23.8 L MCV 83 MCH 26.6 MCHC 31.9 RDW Std Deviation 49.9 H Plt Count 34 L Neut % (Auto) 58 Lymph % (Auto) 20 [place] % (Auto) 6 Eos % (Auto) 15 H Baso % (Auto) 1 Neut # (Auto) 1.3 L Lymph # (Auto) 0.4 L [place] # (Auto) 0.1 Eos # (Auto) 0.3 Baso # (Auto) 0.0 Immature Gran # (Auto) 0.01 H Absolute Nucleated RBC 0.00 Immature Gran % 1 H Nucleated RBC % 0 Smear Path Review Sent to Pathologist ESR < 1 Puncture Site Right Radial ABG pH 7.29 L ABG pCO2 53 H ABG pO2 90 ABG HCO3 25 ABG O2 Saturation 97 ABG Base Excess -2 FiO2 21 Sodium 155 H Potassium 2.4 L* Chloride 129 H* Carbon Dioxide 18.5 L Anion Gap 8 BUN 18 Creatinine < 0.2 L Estim Creat Clear Calc 225.2 eGFR > 60 BUN/Creatinine Ratio 90 H Glucose [address] Glu mg/dL 186 H Hemoglobin A1c 8.1 H Calculated Osmolality 307 H Lactic Acid 0.9 Calcium < 5.0 L* Corrected Calcium 7.0 L Phosphorus 2.3 L Magnesium 1.1 L Iron 164 TIBC 252 Iron Saturation 65 H Unsat Iron Binding 88 L Total Bilirubin 0.2 L Direct Bilirubin < 0.1 AST 31 ALT 27 Alkaline Phosphatase 45 L Ammonia 37 H Total Creatine Kinase 26 L C-Reactive Prot, Quant < 0.5 B-Natriuretic Peptide 85 Total Protein 2.5 L Albumin 1.5 L Globulin 1.0 L Albumin/Globulin Ratio 1.5 Triglycerides Cholesterol LDL Cholesterol, Calc HDL Cholesterol Cholesterol/HDL Ratio Lipase 115 H Beta-Hydroxybutyrate/Acetoacetate 0.2 Procalcitonin 0.04 TSH 2.73 Ur Collection Type Clean Catch Urine Color Yellow Urine Clarity Clear Urine pH 5.[address] 1.018 Urine Protein Trace Urine Glucose (UA) Negative Urine Ketones Negative Urine Blood Negative Urine Nitrite Negative Urine Bilirubin Negative Urine Urobilinogen (Auto) Negative Ur Leukocyte Esterase Negative Urine RBC 1 Urine WBC 1 Ur Squamous Epith Cells < 1 Urine Bacteria None Hyaline Casts < 1 Ur Culture Indicated? Not Indicated Urine Opiates Screen Negative Urine Fentanyl Screen Negative Ur Barbiturates Screen Negative U Amphetamin/Meth Scrn Negative U Benzodiazepines Scrn Negative U Cocaine Metab Screen Negative U Marijuana (THC) Screen Negative Ethyl Alcohol < 3.0 Misc Test Result Platelets confirmed Blood Type B Positive Antibody Screen NEGATIVE Crossmatch See Detail Blood Bank Wristband ID Yes 04/12/25 04/12/25 00:33 06:41 WBC 4.3 D RBC 4.03 Hgb 10.7 L D Hct 32.2 L MCV 80 MCH 26.6 MCHC 33.2 RDW Std Deviation 50.2 H Plt Count 59 L D Neut % (Auto) 78 Lymph % (Auto) 7 L [place] % (Auto) 7 Eos % (Auto) 8 Baso % (Auto) 1 Neut # (Auto) 3.4 Lymph # (Auto) 0.3 L [place] # (Auto) 0.3 Eos # (Auto) 0.3 Baso # (Auto) 0.0 Immature Gran # (Auto) 0.03 H Absolute Nucleated RBC 0.02 H Immature Gran % 1 H Nucleated RBC % 1 H Smear Path Review ESR Puncture Site ABG pH ABG pCO2 ABG pO2 ABG HCO3 ABG O2 Saturation ABG Base Excess FiO2 Sodium 140 D 150 H D Potassium 4.7 D 4.4 Chloride 109 H 117 H Carbon Dioxide 24.4 23.5 Anion Gap 7 10 BUN 21 25 H Creatinine 0.5 L 0.5 L Estim Creat Clear Calc 90.1 90.1 eGFR > 60 > 60 BUN/Creatinine Ratio 42 H 50 H Glucose 421 H* D [address] Glu mg/dL Hemoglobin A1c Calculated Osmolality 300 H 301 H Lactic Acid Calcium 8.7 D 9.0 Corrected Calcium 9.2 D 9.6 Phosphorus 2.6 2.8 Magnesium 2.3 2.1 Iron TIBC Iron Saturation Unsat Iron Binding Total Bilirubin 0.5 Direct Bilirubin AST 47 H ALT 44 Alkaline Phosphatase 73 D Ammonia Total Creatine Kinase 29 L C-Reactive Prot, Quant B-Natriuretic Peptide Total Protein 5.0 L Albumin 3.4 D 3.3 L Globulin 1.7 L Albumin/Globulin Ratio 1.9 Triglycerides 112 Cholesterol 123 L LDL Cholesterol, Calc 53 HDL Cholesterol 48 Cholesterol/HDL Ratio 2.6 L Lipase Beta-Hydroxybutyrate/Acetoacetate Procalcitonin TSH Ur Collection Type Urine Color Urine Clarity Urine pH Ur Specific Lane Urine Protein Urine Glucose (UA) Urine Ketones Urine Blood Urine Nitrite Urine Bilirubin Urine Urobilinogen (Auto) Ur Leukocyte Esterase Urine RBC Urine WBC Ur Squamous Epith Cells Urine Bacteria Hyaline Casts Ur Culture Indicated? Urine Opiates Screen Urine Fentanyl Screen Ur Barbiturates Screen U Amphetamin/Meth Scrn U Benzodiazepines Scrn U Cocaine Metab Screen U Marijuana (THC) Screen Ethyl Alcohol Misc Test Result Platelets confirmed Blood Type Antibody Screen Crossmatch Blood Bank Wristband ID ABG Interpretation ABG results: 04/11/25 21:53 ABG pH 7.29 L ABG pCO2 53 H ABG pO2 90 ABG HCO3 25 ABG O2 Saturation 97 ABG Base Excess -2 Quality Measures Quality Measures VTE prophylaxis Advance care planning discussed with:: patient and other Assessment & Plan Assessment Current Active Medications: Generic Name Dose Route Start Last Admin Trade Name Mino PRN Reason Stop Dose Admin Dextrose 50 ml 04/12/25 00:08 04/12/25 12:20 Dextrose 50%-Water Inj 50 Ml Syringe IV 05/12/25 00:07 50 ml Q15MIN PRN Administration BG <50 OR BG <70 & pt unresponsive Enoxaparin Sodium 40 mg 04/12/25 21:00 Enoxaparin Sod Inj 40 Mg/0.4 Ml Syringe SC 04/26/25 20:59 QDAY HARPER Glucagon 1 mg 04/12/25 00:08 Glucagon Inj 1 Mg Vial IM Q15MIN PRN BG <70, and no IV access Cefepime HCl 1 gm/ Sodium 50 mls @ 100 mls/hr 04/12/25 01:43 04/12/25 15:07 Chloride IV 04/19/25 01:42 100 mls/hr Q8HR HARPER Administration Dopamine HCl/Dextrose 400 mg in 250 mls @ 10.369 mls/hr 04/12/25 01:52 04/12/25 09:00 Intropin In D5w Ivpb IV 05/12/25 01:51 0 mcg/kg/min .Q24H HARPER 0 mls/hr Protocol Titration 5 MCG/KG/MIN Vancomycin/Sodium Chloride 200 mls @ 120 mls/hr 04/12/25 10:00 04/12/25 09:08 Vancomycin/Ns 1 Gm Ivpb IV 04/19/25 09:59 120 mls/hr Q12H [facility]PER Administration Protocol Norepinephrine/Dextrose 8 mg in 250 mls @ 5.184 mls/hr 04/12/25 07:59 04/12/25 16:00 Levophed In D5w 8mg/250ml IV 05/12/25 07:58 0.05 mcg/kg/min .Q24H PRN 5.184 mls/hr PER PROTOCOL Titration Protocol 0.05 MCG/KG/MIN Insulin Human Lispro 0 unit 04/12/25 06:00 04/12/25 12:04 Insulin Lispro (Admelog) 1 Unit/0.01 Ml Unit SC 05/12/25 05:59 Not Given Q6HR [facility] Protocol Multi-Ingredient Ointment 0 oz 04/12/25 12:30 Min Oil/Pet,White (Eucerin) Cr 16 Oz Btl TOP 05/12/25 12:29 DAILY [facility] Ondansetron HCl 4 mg 04/11/25 22:23 Ondansetron Inj 2 Mg/Ml Inj 2 Ml IVP 05/11/25 22:22 Q6H PRN NAUSEA OR VOMITING Protocol Pantoprazole Sodium 40 mg 04/12/25 10:30 04/12/25 11:39 Pantoprazole Inj 40 Mg Vial IVP 05/12/25 10:29 40 mg QDAY HARPER Administration Pharmacy Consult 1 each 04/12/25 09:00 Vancomycin Pharmacy To Dose 1 Each Each IV 05/12/25 08:59 QDAY PRN RX Terbinafine HCl 2 gm 04/11/25 23:00 Terbinafine Hcl Cr 1% 12 Gm Tube TOP 05/11/25 22:59 TID HARPER Plan Patient is a 69-year-old female admitted for acute metabolic encephalopathy, possible cardiogenic shock in the setting of severe hypothermia, electrolyte disturbances and protein calorie malnutrition. NEURO Acute metabolic encephalopathy In the setting of Hypertonic hyperNatremia, severe Acute hypothermia Dx: - On admission, temperature 85.1. Other vitals within normal limits - Alert but cannot assess orientation. Patient initially was obtunded in the ED, however after Bear hugger and electrolyte repletion, became more alert and responsive. Opened eyes spontaneously and followed with eyes. - Sodium on admission at 155 consistent with severe hyperNatremia - Head CT: Negative for acute hemorrhage, mass effect or midline shift. - Ammonia = 37 - Temp 84.7 -> 85.1 --> 85.8 Rx: - Q2 hours neuro checks and temperature checks - On D5W maintenance @75 cc/h x1 bag - Will continue to check sodium every 4 hours. Goal Na over the next 24 hours : 138-140 RRx: -Gave warmed D5W 500 cc x 1 for hypothermia and severe hypernatremia. -Bear hugger discontinued (temp has been normothermic) History of Seizures Dx: - Per patient's son 04/12, patient takes 1000 mg Keppra BID Rx: - Restarted patient's home med of Keppra 1000 mg BID CVS Distributive shock Hx of Aortic stenosis, moderate Hx of primary hypertension Dx: - Follow up trended, unclear history. Prior to this episode, patient was always alert and responsive. - Physical exam remarkable warm extremities, 3/5 ejection systolic murmur radiating to the carotids/abdomen - Echo 2023: Stage I diastolic dysfunction EF 60-65%, moderate AV stenosis velocity 3.1 and peak gradient 21. Thickening of the MV leaflet and mild MR and TR. - Bedside echo 04/12 showed no septal wall hypokinesis, good ejection fraction, severe aortic stenosis with lack of motion from 1 aortic leaeflet - Home meds: Lisinopril 10 mg daily, aspirin 81 mg daily, Plavix 75 mg daily - On admission, given Dopamine gtt in ED for hypotension MAP 51-53 and Bradycardia HR 50s Rx: - Dopamine discontinued, started levophed, currently rate of 0.07 mcg/kg/min - Echo ordered for further evaluation - Recommend orthostatic workup - Cardiology consult to evaluate further - Follow-up med rec and start medications as tolerated PULM Left base PNA, possibly aspiration Right upper lobe pulmonary nodules Bilateral pleural effusions, small Axillary lymphadenopathy Dx: - Vitals within normal limits, besides temperature - CT chest abdomen pelvis: Mild CHF, left base pneumonia likely aspiration. Right upper lobe pulmonary nodule. Multiple subcentimeter axillary lymph nodes. Small bilateral pleural effusions. - Patient is saturating 92-96% on room air in the ED. Rx: - Empirically started Vancomycin qD + Cefepime 1g q8H + Metronidazole 500 mg q8H, for aspiration pneumonia and any other concomitant infection that may be going on - Avoid penicillins such as Zosyn or Unasyn as patient has history of allergy - Aspiration precautions. Will keep patient n.p.o. for now. - Recommend outpatient repeat CT chest to follow-up any changes in the pulmonary nodules - Consider in house oncology consultation for axillary lymphadenopathy RRx: -Speech therapy stated pt not read for swallow study, will continue to f/u GI/Hep Protein calorie malnutrition Acute on chronic normocytic anemia In the setting of Severe gastritis Proctitis, likely acute Constipation Vs. bowel ileus Dx: - Admission Hb 7.6, MCV 80s - CT abdomen pelvis: Significant thickening of the gastric mucosa. Abundant stool in the rectosigmoid without bowel obstruction. Rectal wall thickening possible proctitis. Severe osteopenia - Protein 2.5 , Albumin 1.5 - Body weight 55 kg , BMI 19.7 - Significant muscle wasting. Loss of subcutaneous fat. - Poor nutritional intake of <50% of recommended calories. - Bedridden or otherwise significantly reduced functional capacity Rx: - Consider GI consultation if Hb continue to trend low - Follow up FOBT results - Referral to speech for swallow eval. Start NG tube feeds if patient doesn't pass swallow eval RRx: - Risk Intern recommended consistent carb diet if oral intake is feasible RENAL Hypernatremia DDx: Suspecting due to sepsis vs dehydration Dx: -Na 150 after glucose normalized -Pt mental status continued to be poor, not responding verbally, encephalopathic Rx: -Started 1 bag D5 IV @75 mls/hr -Sodium checks q4 Electrolyte abnormalities, improving Acute hypokalemia Hypomagnesemia Hypophosphatemia Hypocalcemia Dx: - K 2.4, Mg 1.1 - Ca 7.0, Phos 2.3 - Likely in the setting of poor oral intake Rx: - KCL IV 30mEq + KPhos 30mmOl - Mg Sulfate 2g + 4g - Calcium Gluc x1 - Repeat renal panel + Mg at 00:00 ENDO T2 IDDM Dx: - A1c 8.1% - Home meds: Metformin 1g BID - Blood glucose 65 on CMP Rx: - Insulin sliding scale q6H while NPO - Continue Q3 hours bedside fingerstick glucose checks while on D5W - Hypoglycemia protocol in place - Transition to SC insulin once patient begins oral intake - Recommend prescribing continuous glucose monitor on discharge HEME/ONC Pancytopenia Dx: Admission: WBC 2.2, Hb 7.6, RBC 2.86, PLT 34 CBC largely improved on AM labs 04/12 ANC >1.5 at this time Rx: - Follow-up blood smear report - Given ANC > 1.5, patient does not require neutropenic precautions at this time - Daily CBC and CMP, monitor closely ID GPC bacteremia Dx: -Blood culture 07/07 04/11 show GPC resembling Staph on prelim Rx: -On Vancomycin and Cefepime RRx: -MRSA pending, other blood cx pending, f/u MSK/DERM Tinea Capitis Hx of LT foot metatrasal amputation and RT foot 2nd digit amputation Dx: - Physical exam shows diffuse crusted rash over the frontal scalp - History of left metatarsal amputation and right second digit amputation. Well-healed scars on physical exam Rx: - terbinafine topical 2 g TID for tinea capitis Nasal lesion, possibly basal cell carcinoma Axillary lymphadenopathy Dx: Lesion noted on the tip of the nose on exam, pearly edges and no discharge CT CAP: associated axillary lymphadenopathy Rx: Recommend oncology consult in house for further evaluation ICU Health maintenance: Dispo: Admit to ICU for acute metabolic encephalopathy in the setting of severe hypothermia, electrolyte disturbances and protein calorie malnutrition. Diet: NPO (speech saw, stated pt unable to actively participate today) DVT ppx: Enoxaparin 40mg SC daily GI ppx: not indicated IV lines: 2 pIV Central line: No Arterial line: No Contact Precautions: Yes (scabies suspected) Code status: FULL CODE Patient plan of care was discussed with the attending physician, Dr. Walsh & senior resident Dr. Violette Wong MD PGY-1 Attending Provider Attestation/Addendum Patient seen and examined resident team, discussed with residents. In brief this is 69-year-old female admitted for distributive shock. Patient also appeared to be very dehydrated. She received several boluses of IV fluids. She has a widespread rash over her entire body which is unclear etiology. On exam she is thin, cachectic, dry oral mucosa, pronounced heart murmur consistent with aortic stenosis which radiates down to the abdomen and through to the back. Abdomen is soft nontender bowel sounds are present, no edema of the lower extremities, pulses palpable, no clubbing or cyanosis. She was very hypothermic and dry on arrival. She has been placed on a Laverne hugger. She has received fluids for her distributive shock and is currently on Levophed this was changed from her dopamine. She was also hypoglycemic on arrival and received an amp of D50 for which she responded well. She does have a left sided pneumonia for which she is on antibiotics. Apparently she is bedbound at baseline. Case discussed with ICU team Labs, imaging records reviewed Approximately 40 critical care minutes required for evaluation, exam, review, intervention, discussion and formulation of plan of care for this critically ill patient with septic shock on vasopressors.
[2025-04-12 19:58] LABS: Sodium 151 mMol/L (136-145)
[2025-04-12] MEDS: DEXTROSE 5%-WATER 1,000 ML 75 ML IV (20:13)
[2025-04-12] MEDS: DEXTROSE 5%-WATER 500 ML IV (21:36)
[2025-04-12] MEDS: ENOXAPARIN SOD INJ 40 MG/0.4 ML SYRINGE SC (21:38)
[2025-04-12] MEDS: levETIRAcetam INJ 100 MG/ML VIAL 5ML 1000 MG IVP (21:38)
[2025-04-12] MEDS: ALBUMIN HUMAN-KJDA 25% IVPB 25 GM/100 ML BTL IV (22:00)
--- NOTE | 2025-04-12 22:16 | PD.RESEVENT ---
Documentation for date of: 04/12/25 Event Note Event Note: 19:30 Patient admitted with HyperNatremia of 155 --> Na 145 (corrected for glucose) by 00:33 on 04/12/2025 --> D5W gtt paused Na 150 (normal glucose) @ 06:41 - - No D5W started, No follow up sodium checks noted --> Na 151 @ 19:30 evening sign out , Osm 301 On exam, patient's mentation is worse on 04/12 as compared to 04/11 Will order D5W 500cc bolus to be given over 30-45 minutes Restarted on D5W maintenance @ 70 cc/h Q4H Na checks ordered Anticipate improvement in mentation with Na correction. Elderly patient are very sensitive to Na fluctuations, advisable to follow closely and correct by goal of 10-12 in 24 hours. - Nathan William M.D. PGY3 Disclaimer: Minor errors in user interface developer may be present as this note was dictated using voice recognition software.
[2025-04-12] MEDS: DEXTROSE 5%-WATER 1,000 ML 70 ML IV (23:00)
[2025-04-12 23:47] LABS: Sodium 149 mMol/L (136-145)
[2025-04-13] VITALS (64 sets, daily range): BP systolic 81–126; BP diastolic 37–73; PULSE 46–70; RESP 6–23; TEMP 36.2–37.2; O2SAT 88–100; BMI 22.0
--- NOTE | 2025-04-13 04:05 | PD.RESEVENT ---
Documentation for date of: 04/13/25 Event Note Event Note: 0400 Na 151 --> 149 - Will increase D5W to 125 cc/h Also ordered Albumin x2 (3.3) to keep volume intravascular and prevent overload. - Nathan William M.D. PGY3 Disclaimer: Minor errors in salesperson pets and pet supplies may be present as this note was dictated using voice recognition software.
[2025-04-13] MEDS: DEXTROSE 5%-WATER 1,000 ML 125 ML IV (04:36)
[2025-04-13] MEDS: ALBUMIN HUMAN 25% IVPB 12.5 GM/50 ML BTL IV ×2 (04:55→08:52)
--- NOTE | 2025-04-13 05:09 | XR_ITS ---
EXAMINATION: AP chest single view TECHNIQUE: AP portable semiupright chest single view Date and time: April 13, 2025, 0515 hours, comparison April 11, 2025 INDICATIONS: Worsening breath sounds today FINDINGS: Interval diffuse pneumonia left lung Mild associated heart failure with enlarged cardiac contour and prominent vascular congestion. Severe osteopenia IMPRESSION: Interval extensive left lung pneumonia Mild associated heart failure
--- NOTE | 2025-04-13 05:20 | PC.RT ---
pt sats dropping to the 70s per ICU lab tech came to assess pt immediately pt on nasal canula 5L spo2 78% place on 15L oxymask per DR. Dodd NT suction pt obtain a moderate thin yellow spo2 improved titrate to 5L humidified nasal cannula, spo2 92%
--- NOTE | 2025-04-13 05:26 | PD.RESEVENT ---
Documentation for date of: 04/13/25 Event Note Event Note: 0530 Patient's oxygen saturations dropped to 88%, transitioned to oxymask 8L, sats 90-92% On exam, lungs have coarse crackles L>R and upper lobe wheezing Brought bed up to 45 degrees. RN advised to keep bed 30-45 degrees with aspiration precautions Performed bedside nasal suction + Duonebs treatment x1 --> sats improved to 94-95% on 6L CXR showed pulmonary congestion as noted on 04/11, slightly worse on the LT Will pause D5W gtt as patient does not appear to be tolerating fluids well Ordered Lasix 20mg x1 to diurese, Cr 0.5 and GFR >60 Antiicpate improvement in sats and Na with diuresis, mentation is much improved at this time with Na correction. - Nathan William M.D. PGY3 Disclaimer: Minor errors in head turning machine operator may be present as this note was dictated using voice recognition software.
[2025-04-13] MEDS: ALBUTEROL/IPRATROPIUM (Duoneb) RT SOL 3 ML NEBU INH (05:30)
[2025-04-13] MEDS: FUROSEMIDE INJ 10 MG/ML VIAL 2 ML 20 MG IVP (05:34)
[2025-04-13 05:56] LABS: Basophils # (Auto) 0.1 Thou/mm3 (0.0-0.2); Basophils % (Auto) 1 % (0-2.5); Eosinophils # (Auto) 0.2 Thou/mm3 (0.0-0.5); Eosinophils % (Auto) 3 % (0-10); Hematocrit 31.4 % (36.0-46.0); Hemoglobin 10.5 g/dL (12.0-16.0); Immature Granulocytes Auto 0.04 Thou/mm3 (0.00-0.00); Lymphocytes # (Auto) 0.5 Thou/mm3 (1.0-4.8); Lymphocytes % (Auto) 5 % (10-50); Mean Corpuscular HGB Conc 33.4 g/dl (31.0-37.0); Mean Corpuscular Hemoglobin 27.0 pg (25.0-35.0); Mean Corpuscular Volume 81 fL (80-100); Monocytes # (Auto) 0.4 Thou/mm3 (0.0-0.8); Monocytes % (Auto) 4 % (0-12); Neutrophils # (Auto) 8.6 Thou/mm3 (1.8-7.7); Neutrophils % (Auto) 88 % (37-80); Nucleated Red Blood Cell # 0.02 Thou/mm3 (0.00-0.00); Nucleated Red Blood Cell % 0 /100 WBC (0); RDW Standard Deviation 52.4 fL (36.4-46.3); Red Blood Count 3.89 Miln/mm3 (4.00-5.20); White Blood Count 9.8 Thou/mm3 (3.6-11.0)
[2025-04-13 06:11] LABS: Platelet Count 43 Thou/mm3 (140-440)
[2025-04-13] MEDS: CEFEPIME INJ 1 GM in SODIUM CHLORIDE 0.9% (Popper) 50 ML IV ×2 (06:12→14:10)
[2025-04-13 06:44] LABS: Alanine Aminotransferase 38 U/L (10-49); Albumin, Serum 3.4 gm/dL (3.4-4.8); Albumin/Globulin Ratio 2.1 (1.2-2.2); Alkaline Phosphatase 69 U/L (46-116); Anion Gap 11 (7-16); Aspartate Amino Transferase 45 U/L (0-34); BUN/Creatinine Ratio 60 Ratio (12-20); Bilirubin,Total 0.7 mg/dL (0.3-1.2); Blood Urea Nitrogen 36 mg/dL (9-23); Calcium 8.7 mg/dL (8.3-10.6); Calcium (Corrected) 9.2 mg/dL (8.5-10.1); Carbon Dioxide 19.6 mMol/L (20.0-31.0); Chloride 115 mMol/L (98-107); Creatinine (Component) 0.6 mg/dL (0.6-1.3); Estimated Creatinine Clearance 75.1 mL/min (>60); Globulin 1.6 gm/dL (2.3-3.5); Glucose 100 mg/dL (74-106); Magnesium 1.8 mg/dL (1.6-2.6); Osmolality,Calculated 298 (275-295); Phosphorous 2.8 mg/dL (2.4-5.1); Potassium 4.2 mMol/L (3.4-5.1); Sodium 146 mMol/L (136-145); Total Protein 5.0 gm/dL (5.7-8.2); eGFR > 60 See Note
[2025-04-13 08:39] LABS: Slide Review Platelets confirmed
[2025-04-13] MEDS: TERBINAFINE HCL 1% 2 GM TOP ×2 (08:51→21:24)
[2025-04-13] MEDS: levETIRAcetam INJ 100 MG/ML VIAL 5ML 1000 MG IVP ×2 (08:52→21:23)
[2025-04-13] MEDS: ENOXAPARIN SOD INJ 40 MG/0.4 ML SYRINGE SC (08:52)
[2025-04-13] MEDS: MIN OIL/PET,WHITE (Eucerin) CR 16 OZ BTL TOP (08:53)
[2025-04-13] MEDS: Magnesium Sulfate 2 GM Ivpb 2 GM/50 ML BAG IV (08:56)
[2025-04-13 09:21] LABS: Sodium 148 mMol/L (136-145); Vancomycin,Trough 19.7 mcg/mL (5.0-10.0)
--- NOTE | 2025-04-13 10:40 | PD.RESPRO ---
Documentation for date of: 04/13/25 Subjective Subjective Interval history: Patient was seen and examined at bedside. Continues to be very confused, unable to answer questions appropriately. Blood pressure 81/41 this morning, overnight in 90s to 100s systolic. Temperature 97.9. Patient is net +171 cc. On telemetry, continues to be in sinus bradycardia, heart rate in upper 50s to low 60s. WBC increased to 9.8 (from 4.2). Sodium 146 (from 151), potassium 4.2, bicarb 19.6 (from 23.5), BUN 36 (125), creatinine 0.6, magnesium 1.8. Replete magnesium to keep above 2. Discontinued off Levophed today. Exam Vital Signs Temp Pulse Resp BP Pulse Ox O2 Del Method O2 Flow Rate 97.9 F 58 L 15 102/52 L 96 Room Air 5 04/13/25 07:15 04/13/25 08:00 04/13/25 08:00 04/13/25 08:00 04/13/25 08:00 04/12/25 12:00 04/13/25 05:30 Narrative Exam Physical Exam General: Awake and in no acute distress. Not conversational. Very confused. Unable to answer questions appropriately. Cachectic. HEENT: Normocephalic, atraumatic, mucous membranes dry. Upper dentures, missing bottom teeth. Heart: Regular rate and rhythm, normal S1 and S2, 4/5 systolic murmur radiating to carotids. Lungs: Clear to auscultation with no wheezing or crackles. Abdomen: Soft, nondistended, nontender, positive bowel sounds. No guarding or rebound tenderness. Neurologic: Alert and oriented x0. Unable to assess as patient is noncompliant with commands. Extremities: No edema. Left foot transmetatarsal amputation. Right foot second digit amputation. Skin: No rash or ecchymoses. Tinea capitis at frontal scalp. Petechial lesions bilateral lower extremities. Objective Labs 04/13/25 04:30 04/13/25 11:00 Labs: Laboratory Results - last 24 hr 04/12/25 04/12/25 04/12/25 06:41 19:25 23:24 WBC RBC Hgb Hct MCV MCH MCHC RDW Std Deviation Plt Count Neut % (Auto) Lymph % (Auto) [place] % (Auto) Eos % (Auto) Baso % (Auto) Neut # (Auto) Lymph # (Auto) [place] # (Auto) Eos # (Auto) Baso # (Auto) Immature Gran # (Auto) Absolute Nucleated RBC Immature Gran % Nucleated RBC % Sodium 151 H 149 H Potassium Chloride Carbon Dioxide Anion Gap BUN Creatinine Estim Creat Clear Calc eGFR BUN/Creatinine Ratio Glucose Calculated Osmolality Calcium Corrected Calcium Phosphorus Magnesium Total Bilirubin AST ALT Alkaline Phosphatase Total Protein Albumin Globulin Albumin/Globulin Ratio Vancomycin Trough Misc Test Result Platelets confirmed 04/13/25 04/13/25 04:30 08:38 WBC 9.8 D RBC 3.89 L Hgb 10.5 L Hct 31.4 L MCV 81 MCH 27.0 MCHC 33.4 RDW Std Deviation 52.4 H Plt Count 43 L D Neut % (Auto) 88 H Lymph % (Auto) 5 L [place] % (Auto) 4 Eos % (Auto) 3 Baso % (Auto) 1 Neut # (Auto) 8.6 H Lymph # (Auto) 0.5 L [place] # (Auto) 0.4 Eos # (Auto) 0.2 Baso # (Auto) 0.1 Immature Gran # (Auto) 0.04 H Absolute Nucleated RBC 0.02 H Immature Gran % 0 Nucleated RBC % 0 Sodium 146 H 148 H Potassium 4.2 Chloride 115 H Carbon Dioxide 19.6 L Anion Gap 11 BUN 36 H Creatinine 0.6 Estim Creat Clear Calc 75.1 eGFR > 60 BUN/Creatinine Ratio 60 H Glucose 100 Calculated Osmolality 298 H Calcium 8.7 Corrected Calcium 9.2 Phosphorus 2.8 Magnesium 1.8 Total Bilirubin 0.7 AST 45 H ALT 38 Alkaline Phosphatase 69 Total Protein 5.0 L Albumin 3.4 Globulin 1.6 L Albumin/Globulin Ratio 2.1 Vancomycin Trough 19.7 H Misc Test Result Platelets confirmed ABG Interpretation ABG results: 04/11/25 21:53 ABG pH 7.29 L ABG pCO2 53 H ABG pO2 90 ABG HCO3 25 ABG O2 Saturation 97 ABG Base Excess -2 Quality Measures Quality Measures VTE prophylaxis Advance care planning discussed with:: patient Assessment & Plan Assessment Current Active Medications: Generic Name Dose Route Start Last Admin Trade Name Freq PRN Reason Stop Dose Admin Dextrose 50 ml 04/12/25 00:08 04/12/25 12:20 Dextrose 50%-Water Inj 50 Ml Syringe IV 05/12/25 00:07 50 ml Q15MIN PRN Administration BG <50 OR BG <70 & pt unresponsive Enoxaparin Sodium 40 mg 04/12/25 21:00 04/13/25 08:52 Enoxaparin Sod Inj 40 Mg/0.4 Ml Syringe SC 04/26/25 20:59 40 mg QDAY HARPER Administration Glucagon 1 mg 04/12/25 00:08 Glucagon Inj 1 Mg Vial IM Q15MIN PRN BG <70, and no IV access Cefepime HCl 1 gm/ Sodium 50 mls @ 100 mls/hr 04/12/25 01:43 04/13/25 06:12 Chloride IV 04/19/25 01:42 100 mls/hr Q8HR [facility] Administration Norepinephrine/Dextrose 8 mg in 250 mls @ 5.184 mls/hr 04/12/25 07:59 04/13/25 07:30 Levophed In D5w 8mg/250ml IV 05/12/25 07:58 0 mcg/kg/min .Q24H PRN 0 mls/hr PER PROTOCOL Titration Protocol 0.05 MCG/KG/MIN Dextrose 1,000 mls @ 125 mls/hr 04/13/25 04:04 04/13/25 05:00 D5w IV 0 mls/hr On Hold: 04/13/25 05:19 .Q8H [facility] Infusion Albumin Human 12.5 gm in 50 mls @ 100 mls/hr 04/13/25 04:04 04/13/25 08:52 Albuminar-25 Ivpb IV 05/13/25 04:03 100 mls/hr QDAY HARPER Administration Vancomycin/Sodium Chloride 750 mg in 150 mls @ 120 mls/hr 04/13/25 10:00 Vancomycin/Ns 750 Mg Ivpb IV 04/20/25 09:59 Q12H [facility] Insulin Human Lispro 0 unit 04/12/25 06:00 04/13/25 06:53 Insulin Lispro (Admelog) 1 Unit/0.01 Ml Unit SC 05/12/25 05:59 Not Given Q6HR [facility] Protocol Levetiracetam 1,000 mg 04/12/25 21:00 04/13/25 08:52 Levetiracetam Inj 100 Mg/Ml Vial 5ml IVP 05/12/25 20:59 1,000 mg Q12HR [facility] Administration Multi-Ingredient Ointment 0 oz 04/12/25 12:30 04/13/25 08:53 Min Oil/Pet,White (Eucerin) Cr 16 Oz Btl TOP 05/12/25 12:29 1 applicatio DAILY [facility] Administration Ondansetron HCl 4 mg 04/11/25 22:23 Ondansetron Inj 2 Mg/Ml Inj 2 Ml IVP 05/11/25 22:22 Q6H PRN NAUSEA OR VOMITING Protocol Pantoprazole Sodium 40 mg 04/12/25 10:30 04/13/25 08:52 Pantoprazole Inj 40 Mg Vial IVP 05/12/25 10:29 40 mg QDAY HARPER Administration Pharmacy Consult 1 each 04/12/25 09:00 Vancomycin Pharmacy To Dose 1 Each Each IV 05/12/25 08:59 QDAY PRN RX Terbinafine HCl 2 gm 04/11/25 23:00 04/13/25 08:51 Terbinafine Hcl Cr 1% 12 Gm Tube TOP 05/11/25 22:59 2 gm TID HARPER Administration Plan Patient is a 69-year-old female with past medical history of primary hypertension, type II NIDDM, CAD s/p CABG (, 2019), moderate aortic stenosis, CVA, seizure disorder, age-related dementia, Left foot metatarsal amputation, right foot second digit amputation and COPD, who presented to the hospital due to worsening mentation. Admitted to ICU for acute metabolic encephalopathy in setting of hypertonic hyponatremia and acute hypothermia. Cardiology consulted due to concern for cardiogenic shock and acute bradycardia. #Acute bradycardia, resolved #Distributive shock, likely septic #History of aortic stenosis, moderate #History of hypertension #History CVA Home meds include lisinopril 10 mg daily, aspirin 81 mg daily, Plavix 75 mg daily. On physical exam, auscultated 4/5 ejection systolic murmur radiating to carotids. TTE 06/23/2024 showed normal LV size and function. Mild LVH. Stage I diastolic dysfunction. Estimated EF 60-65%. Normal RV size and function. Moderate AV stenosis, mean gradient 21mmHg, vmax 3.1 m/s. Mild thicken MVL. Midl MR, AI. Trace TR. Bradycardia likely secondary to severe hypothermia. Heart rate now improved to 70s to 80s with conservative treatment of hypothermia. TTE 04/12/25 showed normal left ventricular size and function. Mild LVH. Stage I diastolic dysfunction. Estimated EF 60-65%. Normal RV size and function. RVSP 40 mmHg with RAP 3. Moderate AV stenosis, mean gradient 31 mmHg, vmax 3.7 to 3.8m/s. MELE 1 sq cm. Mild thicken MV leaflets. Mild MR, AI and TR. Compared to prior study of 06/24/24- increased velocities. - Unlikely cardiogenic shock, patient only has moderate aortic stenosis with adequate flow. Likely distributive shock secondary to severe hypothermia. - Heart rate improving at that she is no longer hypothermic. ? Stable off Levophed and dopamine. Monitor BP. #Acute hypokalemia #Hypomagnesemia # Hypophosphatemia ##Hypocalcemia Presented with potassium of 2.4 and magnesium 1.1. Overnight given total potassium chloride 40 mEq, magnesium 2 g, calcium gluconate x1. 04/12/2025: Potassium improved to 4.7 at midnight. Calcium improved to 8.7, phosphorus 2.6, magnesium 2.3. ?Keep potassium above 4 and magnesium above 2 #Acute on chronic normocytic anemia Hemoglobin 7.6. In setting of acute gastritis and severe malnutrition. BMI 19.6. ?Anemia workup per primary team #Ypt-[id number] type 2 diabetes #Hx of LT foot metatrasal amputation and RT foot 2nd digit amputation A1c 8.1. Home meds include metformin 1000 mg twice daily. ?SSI per primary team #Acute encephalopathy in setting of #Hypotonic hyponatremia, severe #Acute hypothermia #Left base PNA, possibly aspiration #Right upper lobe pulmonary nodules #Bilateral pleural effusions, small #Protein calorie malnutrition #Pancytopenia #Proctitis, likely acute #Constipation Vs. bowel ileus #Tinea Capitis #Nasal lesion, possibly basal cell carcinoma #Axillary lymphadenopathy Thank you for your consultation, please do not hesitate to reach out if you have any question or concern Patient plan of care was discussed with the attending physician, Dr. Castellanos. Kenisha Marsh, PGY-1 Attending Provider Attestation/Addendum I have personally seen and examined the patient separately on the above date of service and discussed the plan of care with the resident. I reviewed the resident Dr. Kenisha Marsh consultation progress note and agree with the resident findings and plan in the note above and have also edited the documentation to reflect my findings and plan. 69-year-old female with past medical history of CAD s/p CABG with history of previous multiple PCI, moderate aortic stenosis, CVA/stroke, seizure disorder with Keppra, essential hypertension, hyperlipidemia, baseline dementia, slurred speech, history of left transmetatarsal amputation with questionable PAD, history of fall with displaced intra-articular fracture of the left hip status post open reduction internal fixation in June 2024 was brought in to the emergency department of worsening altered mental status. Patient was completely obtunded at home and was brought in by ambulance to the emergency department. No family apparently at the bedside. No significant history was obtained and emergency department. Patient was hypothermic at 84.7 F with heart rate of 40s and hypotension with a MAP of 50. WBC was 2.2, hemoglobin 7.6, platelets 34 sodium 155 magnesium 1.1 potassium 2.4 calcium 7.0 chloride 129 and albumin 1.4 with total protein of 2.5 and weight of 55 pH of 7.29 ammonia 37 and pCO2 was 53. Chest x-ray with questionable left-sided pneumonia secondary to aspiration. Had CT negative. CT chest abdominal with altered showed small bilateral pleural effusions along with significant thickening of gastric mucosa and some constipation. Cardiology consulted for further evaluation of the shock with possible cardiogenic component given her history of CAD with history of moderate aortic stenosis. Patient was initially started on dopamine drip with improvement of her and her heart rates as well as the blood pressure. 1. Shock mostly secondary to the hypothermia in addition to the possible septic shock or distributive shock -unlikely cardiogenic shock 2. Severe hypothermia 3. Moderate aortic valve stenosis 4. History of CAD s/p CABG with history of previous multiple PCI-no further details. 5. Bradycardia-transient now resolved 6. Severe heart rate abnormalities including severe hypokalemia 2.4, severe hypomagnesemia at 1.1, severe hypocalcemia and severe hypophosphatemia along with hyponatremia 7. Altered mental status and encephalopathy-mostly metabolic 8. Severe protein calorie malnutrition with total protein of 2.5 and albumin of 1.5. 9. Pancytopenia 10. History of CVA/stroke 11. Seizure disorder 12. Essential hypertension 13. Hyperlipidemia 14. Baseline dementia 15. History of questionable PAD with left transmetatarsal amputation and right toe amputation 16 history of COPD As noted above patient shock etiology is unlikely cardiogenic mostly secondary to the severe hypothermia along with septic shock or distributive shock. Patient was bradycardic along with hypotension on admission which improved with rewarming with a Laverne hugger. Injury was started on dopamine with improvement in heart rate but patient was tachycardic and was switched to Levophed drip at the present point of time as she continues to be hypotensive. Patient has possible sepsis with underlying left lower lobe pneumonia. Send patient with known previous history of moderate aortic stenosis noted on the echo in June 2024 Previous echo from June 2024 reviewed which showed normal LV size and function. Mild LVH. Stage I diastolic dysfunction. Estimated EF 60-65%. Normal RV size and function. Moderate AV stenosis, mean gradient 21mmHg, vmax 3.1 m/s. Mild thicken MVL. Midl MR, AI. Trace TR. Recommend repeat echocardiogram at the present moment to evaluate if her moderate aortic stenosis is probably to any kind of severe aortic stenosis and provide evaluate LV function RV function as well as diastolic function. TTE 04/12/25 showed normal left ventricular size and function. Mild LVH. Stage I diastolic dysfunction. Estimated EF 60-65%. Normal RV size and function. RVSP 40 mmHg with RAP 3. Moderate AV stenosis, mean gradient 31 mmHg, vmax 3.7 to 3.8m/s. MELE 1 sq cm. Mild thicken MV leaflets. Mild MR, AI and TR. Compared to prior study of 06/24/24- increased velocities. Patient has moderate aortic stenosis again - Even if the patient has severe aortic stenosis it is unlikely the patient will be a candidate for TAVR given his multiple comorbidities along with her severe protein calorie malnutrition and will not have good outcome as she is unable to do any kind of rehab. Apparently is bedbound with dementia. Complete workup is to be done for the same to rule out any underlying malignancy. Can consider TAVR for her eventually if her overall clinical status improves over the next few months Check TSH A1c lipid profile as well as free T4 for further cardiac risk stratification given her history of CAD status post PCI as well as CABG. TSH were normal, A1c was 8.1% in lipid profile showed total cholesterol of 123, HDL of 48 and LDL of 53. Patient presented with altered mental status and acute metabolic encephalopathy due to unclear etiology at the present moment of time. Has multiple electrolyte abnormalities as noted above which are being aggressively replaced. Patient still continues to be hyponatremic with free water deficit. Overall patient appears to have poor oral intake as the patient was also noted to have severely low albumin at 1.5 as well as total protein at 2.5. Appears to have severely protein calorie malnourishment. Workup as per primary. There is a high probability of sudden, clinically significant or life threatening deterioration in the patient condition which required the highest level of physician preparedness to intervene urgently. I have personally spent 35 minutes of critical care time, exclusive of time spent on any procedures, in evaluation and management of this critically ill patient. Management of rest of the medical conditions as per primary team and other consultants. Thank you for the consult and allowing me to participate in the care of the patient. Cardiology will continue to follow. Jose Castellanos M.D. Interventional Cardiology
[2025-04-13] MEDS: VANCOMYCIN/NS 750 MG IVPB 750 MG/150 ML BAG 120 MG IV ×2 (10:51→21:25)
--- NOTE | 2025-04-13 11:02 | ESPR_ITS ---
<Statement entered by Isidro Gama MD - 04/13/25 18:42> Patient seen and examined at bedside. I discussed and supervised with the wedding planning internship physician who took care of this patient. I personally saw and examined the patient. I agree with most of the assessment and plan. Patient showed improvement in mentation, back to baseline per family at bedside. Patient had decreased oxygen saturation following D5W ministration for hypernatremia, D5W held, patient given Lasix. Oxygen saturation improved, able to be titrated to room air. Patient titrated off pressors, able to maintain blood pressure adequately. Nursing order placed to encourage oral hydration, given patient is unable to make needs known, seems unable to reach for water but does drink when offered. Patient began scratching at self, enough to cause laceration with bleeding, soft mittens placed. Patient stable for downgrade. Plan of care discussed with attending Dr. Walsh. Isidro Gama MD PGY-2 Documentation for date of: 04/13/25 Subjective Subjective Interval history: Mr. Comer is a 69-year-old female with past medical history of primary hypertension, type II NIDDM, CAD s/p CABG, CVA, seizure disorder, age-related dementia, Left foot metatarsal amputation, right foot second digit amputation and COPD, who presented to the hospital due to worsening mentation. Patient was found completely obtunded at home and was BIBA from home. As per ED documentation, patient was last seen in her normal state this afternoon around 1 PM. Patient is otherwise bedbound, but as per previous documentation is able to ambulate with a walker. On my assessment in the ED, patient was alert but minimally responsive to questions, unable to assess orientation at this time. She is a poor historian most of the history was obtained from ED charting and previous health records. Family was not present at bedside to provide history at this time. Temperature 84.7 on presentation, HR 40s and hypotension MAP 51-52. ED started patient on Dopamine gtt emperically, possible cardiogenic shock. Initial lab workup remarkable for pancytopenia WBC 2.2, RBC 2.86, Hb 7.6, PLT 34. On chemistry, acute electrolyte disturbances noted ? Na 155, OSM 307, K2.4, Mg 1.1, Phos 2.3, Ca 7 and chloride 129. ABG showed pH 7.29, bicarb 18.5, CO2 53. Ammonia 37, 7 protein calorie malnutrition?protein 2.5, albumin 1.5, BMI 19.7 and weight 55.3. Chest x-ray showed possible left-sided consolidation, left base pneumonia likely aspiration. Head CT negative for any acute findings. CT chest abdomen pelvis remarkable for Left base pneumonia, consider aspiration. Right upper lobe pulmonary nodules. Multiple subcentimeter axillary lymph nodes. Small bilateral pleural effusions. Significant thickening of the gastric mucosa, differential would include gastritis. Abundant stool in the rectosigmoid but no bowel obstruction. Rectal wall thickening, consider proctitis, recommend direct inspection. Severe osteopenia Allergies: Penicillin?anaphylaxis Shellfish?anaphylaxis Iodine?blisters Social history: Marital?Status:? Social?History?Note:?Lives?at home with family Family history: Unknown ROS Unobtainable: unobtainable due to mental status Patient was admitted to ICU for the work-up and management of acute metabolic encephalopathy in the setting of severe hypothermia and severe hypernatremia. Interval History: 04/12/2025: Patient this morning was on precautions for suspected scabies. Patient was not very interactive with us this morning. Patient had a gcs of 10 with a score for eyes of 3, verbal of 1, motor of 6. Patient had the bear hugger this morning for hypothermia. Vitals on assessment of patient were stable, with blood pressure soft at 99/53. Patient's wbc, hgb and plt count improved since the previous night. Patient's electrolytes were largely improved with the exception of sodium continuing to be elevated. Patient had a bedside echo done which did not show any septal wall hypokinesis, the heart appeared to be pumping well. The cheetah was ordered to assess fluid response. Patient had dopamine discontinued and was started on levophed. MRI brain was wanted to be done but could not given the metal in her body. Wound care is on board and caring for her, recommended moisturizing ointment for her wounds. Patient reportedly had treatment for scabies recently, in February. Patient's son was called and informed us she takes Keppra 1000 mg BID. 04/13/2025: Overnight patient was given D5W 500cc bolus and then was restarted on D5W @ 70cc/hr which was then increased to 125 cc/hr and was given albumin after sodium improved from 151 to 149. Patient's oxygen saturation then dropped to 88%, was given oxygen, had the bed raised to 45 degrees and was given duoneb x1 with improvement in her saturations on oxygen supplementation. Patient was then given lasix and an cxr was ordered that showed slightly worsened pulmonary congestion on the left side. In the morning patient showed great improvement in her mentation, much more alert, orientation is still difficult to assess. Patient's vitals are stable and she is saturating well on 2.5 L NC. Patient put out 50 cc/hr overnight and made some stool in the last 24 hours. Patient's son and his came to visit patient, we updated them on what has happened with the patient and how she has progressed, answered all of their questions to their satisfaction. Patient is planned to be downgraded to telemetry today since she is no longer in need of ICU level care. Exam Vital Signs Temp Pulse Resp BP Pulse Ox O2 Del Method O2 Flow Rate 97.9 F 61 20 81/48 L 96 Nasal Cannula 2 04/13/25 07:15 04/13/25 10:06 04/13/25 10:06 04/13/25 10:00 04/13/25 10:06 04/13/25 09:01 04/13/25 09:01 Narrative Exam Constitutional More alert compared to yesterday, spontaneously open eyes and follows with it. Patient moving spontaneously, difficulty verbalizing. Unable to assess orientation. HEENT Vision grossly intact. Patent nares, crusting on nasal tip, possible BCC lesion. Trachea midline. Respiratory Chest normal on inspection and clear to auscultation bilaterally. Cardiovascular S1 and S2 audible, RRR. Systolic ejection mumur 3/5 radiating to the carotids, bruit + Abdominal Abdominal Bruit; BS + but very slow ; non tender to palpation in all quadrants. Musculoskeletal Extremities tone within normal limits. Non pitting B/L LE edema. LT foot tarsal amputation. RT foot 2nd digit amputation. Neurological No focal neuro deficits noted, unable to be fully examined at this point. Skin Tinea capitis frontal scalp. Diffuse skin lesions. Warm extremities Objective Labs 04/13/25 04:30 04/13/25 11:00 Labs: Laboratory Results - last 24 hr 04/12/25 04/12/25 04/12/25 06:41 19:25 23:24 WBC RBC Hgb Hct MCV MCH MCHC RDW Std Deviation Plt Count Neut % (Auto) Lymph % (Auto) [place] % (Auto) Eos % (Auto) Baso % (Auto) Neut # (Auto) Lymph # (Auto) [place] # (Auto) Eos # (Auto) Baso # (Auto) Immature Gran # (Auto) Absolute Nucleated RBC Immature Gran % Nucleated RBC % Sodium 151 H 149 H Potassium Chloride Carbon Dioxide Anion Gap BUN Creatinine Estim Creat Clear Calc eGFR BUN/Creatinine Ratio Glucose Calculated Osmolality Calcium Corrected Calcium Phosphorus Magnesium Total Bilirubin AST ALT Alkaline Phosphatase Total Protein Albumin Globulin Albumin/Globulin Ratio Vancomycin Trough Misc Test Result Platelets confirmed 04/13/25 04/13/25 04:30 08:38 WBC 9.8 D RBC 3.89 L Hgb 10.5 L Hct 31.4 L MCV 81 MCH 27.0 MCHC 33.4 RDW Std Deviation 52.4 H Plt Count 43 L D Neut % (Auto) 88 H Lymph % (Auto) 5 L [place] % (Auto) 4 Eos % (Auto) 3 Baso % (Auto) 1 Neut # (Auto) 8.6 H Lymph # (Auto) 0.5 L [place] # (Auto) 0.4 Eos # (Auto) 0.2 Baso # (Auto) 0.1 Immature Gran # (Auto) 0.04 H Absolute Nucleated RBC 0.02 H Immature Gran % 0 Nucleated RBC % 0 Sodium 146 H 148 H Potassium 4.2 Chloride 115 H Carbon Dioxide 19.6 L Anion Gap 11 BUN 36 H Creatinine 0.6 Estim Creat Clear Calc 75.1 eGFR > 60 BUN/Creatinine Ratio 60 H Glucose 100 Calculated Osmolality 298 H Calcium 8.7 Corrected Calcium 9.2 Phosphorus 2.8 Magnesium 1.8 Total Bilirubin 0.7 AST 45 H ALT 38 Alkaline Phosphatase 69 Total Protein 5.0 L Albumin 3.4 Globulin 1.6 L Albumin/Globulin Ratio 2.1 Vancomycin Trough 19.7 H Misc Test Result Platelets confirmed ABG Interpretation ABG results: 04/11/25 21:53 ABG pH 7.29 L ABG pCO2 53 H ABG pO2 90 ABG HCO3 25 ABG O2 Saturation 97 ABG Base Excess -2 Quality Measures Quality Measures VTE prophylaxis Advance care planning discussed with:: child Assessment & Plan Assessment Current Active Medications: Generic Name Dose Route Start Last Admin Trade Name Freq PRN Reason Stop Dose Admin Dextrose 50 ml 04/12/25 00:08 04/12/25 12:20 Dextrose 50%-Water Inj 50 Ml Syringe IV 05/12/25 00:07 50 ml Q15MIN PRN Administration BG <50 OR BG <70 & pt unresponsive Enoxaparin Sodium 40 mg 04/12/25 21:00 04/13/25 08:52 Enoxaparin Sod Inj 40 Mg/0.4 Ml Syringe SC 04/26/25 20:59 40 mg QDAY HARPER Administration Glucagon 1 mg 04/12/25 00:08 Glucagon Inj 1 Mg Vial IM Q15MIN PRN BG <70, and no IV access Cefepime HCl 1 gm/ Sodium 50 mls @ 100 mls/hr 04/12/25 01:43 04/13/25 06:12 Chloride IV 04/19/25 01:42 100 mls/hr Q8HR HARPER Administration Norepinephrine/Dextrose 8 mg in 250 mls @ 5.184 mls/hr 04/12/25 07:59 04/13/25 07:30 Levophed In D5w 8mg/250ml IV 05/12/25 07:58 0 mcg/kg/min .Q24H PRN 0 mls/hr PER PROTOCOL Titration Protocol 0.05 MCG/KG/MIN Dextrose 1,000 mls @ 125 mls/hr 04/13/25 04:04 04/13/25 05:00 D5w IV 0 mls/hr On Hold: 04/13/25 05:19 .Q8H HARPER Infusion Albumin Human 12.5 gm in 50 mls @ 100 mls/hr 04/13/25 04:04 04/13/25 08:52 Albuminar-25 Ivpb IV 05/13/25 04:03 100 mls/hr QDAY HARPER Administration Vancomycin/Sodium Chloride 750 mg in 150 mls @ 120 mls/hr 04/13/25 10:00 04/13/25 10:51 Vancomycin/Ns 750 Mg Ivpb IV 04/20/25 09:59 120 mls/hr Q12H HARPER Administration Insulin Human Lispro 0 unit 04/12/25 06:00 04/13/25 06:53 Insulin Lispro (Admelog) 1 Unit/0.01 Ml Unit SC 05/12/25 05:59 Not Given Q6HR HARPER Protocol Levetiracetam 1,000 mg 04/12/25 21:00 04/13/25 08:52 Levetiracetam Inj 100 Mg/Ml Vial 5ml IVP 05/12/25 20:59 1,000 mg Q12HR HARPER Administration Multi-Ingredient Ointment 0 oz 04/12/25 12:30 04/13/25 08:53 Min Oil/Pet,White (Eucerin) Cr 16 Oz Btl TOP 05/12/25 12:29 1 applicatio DAILY HARPER Administration Ondansetron HCl 4 mg 04/11/25 22:23 Ondansetron Inj 2 Mg/Ml Inj 2 Ml IVP 05/11/25 22:22 Q6H PRN NAUSEA OR VOMITING Protocol Pantoprazole Sodium 40 mg 04/12/25 10:30 04/13/25 08:52 Pantoprazole Inj 40 Mg Vial IVP 05/12/25 10:29 40 mg QDAY HARPER Administration Pharmacy Consult 1 each 04/12/25 09:00 Vancomycin Pharmacy To Dose 1 Each Each IV 05/12/25 08:59 QDAY PRN RX Terbinafine HCl 2 gm 04/11/25 23:00 04/13/25 08:51 Terbinafine Hcl Cr 1% 12 Gm Tube TOP 05/11/25 22:59 2 gm TID HARPER Administration Plan Patient is a 69-year-old female admitted for acute metabolic encephalopathy, possible cardiogenic shock in the setting of severe hypothermia, electrolyte disturbances and protein calorie malnutrition. NEURO Acute metabolic encephalopathy 2/2 Distributive Shock, improving Dx: - On admission, temperature 85.1. Other vitals within normal limits. Alert but cannot assess orientation. - Patient initially was obtunded in the ED, however after Bear hugger and electrolyte repletion, is becoming more alert. - Baseline, per family, is A&Ox3. - Sodium on admission at 155, decreased to 146 - Head CT: Negative for acute hemorrhage, mass effect or midline shift. - Ammonia = 37 - Temp 84.7 -> 85.1 --> 85.8 Rx: -Treating underlying distributive shock, maintaining electrolytes wnl RRx: -Gave warmed D5W 500 cc x 1 for hypothermia and severe hypernatremia on admission. -Bear hugger discontinued (temp has been normothermic) History of Seizures Dx: - Per patient's son 04/12, patient takes 1000 mg Keppra BID - No seizures have occurred during this hospitatlization Rx: - Restarted patient's home med of Keppra 1000 mg BID - Will continue to monitor for any seizures, aspiration precautions in place [facility] Distributive shock, resolved Hx of Aortic stenosis, moderate Hx of primary hypertension Dx: - Follow up trended, unclear history. Prior to this episode, patient was always alert and responsive. - Physical exam remarkable warm extremities, 3/5 ejection systolic murmur radiating to the carotids/abdomen - Echo 2023: Stage I diastolic dysfunction EF 60-65%, moderate AV stenosis velocity 3.1 and peak gradient 21. Thickening of the MV leaflet and mild MR and TR. - Bedside echo 04/12 showed no septal wall hypokinesis, good ejection fraction, severe aortic stenosis with lack of motion from 1 aortic leaeflet - Home meds: Lisinopril 10 mg daily, aspirin 81 mg daily, Plavix 75 mg daily - On admission, given Dopamine gtt in ED for hypotension MAP 51-53 and Bradycardia HR 50s - Echo 04/12 notable for EF 60-65%, RVSP 40 mmHg, Moderate AV stenosis. Rx: - Weaned off of Levophed - Cardiology consult to evaluate further - Follow-up med rec and start medications as tolerated RRx: - Cheetah 04/13 showed Fluid Responsiveness (Change of SVI = 15.7%) - Dopamine discontinued, started levophed at rate of 0.07 mcg/kg/min PULM Left base PNA, possibly aspiration Right upper lobe pulmonary nodules Bilateral pleural effusions, small Axillary lymphadenopathy Dx: - Vitals within normal limits, besides temperature - CT chest abdomen pelvis: Mild CHF, left base pneumonia likely aspiration. Right upper lobe pulmonary nodule. Multiple subcentimeter axillary lymph nodes. Small bilateral pleural effusions. - Patient is saturating 92-96% on room air in the ED. Rx: - Current ABX: Vancomycin IV q12 hr and Ceftriaxone 1 gm qday - Avoid penicillins such as Zosyn or Unasyn as patient has history of allergy - Aspiration precautions. Will keep patient n.p.o. for now. - Recommend outpatient repeat CT chest to follow-up any changes in the pulmonary nodules - Consider in house oncology consultation for axillary lymphadenopathy RRx: - Empirically on admission started Vancomycin qD + Cefepime 1g q8H + Metronidazole 500 mg q8H, for aspiration pneumonia. Cefepime and Metronidazole have been DC'd - Follow up cultures, adjust ABX as needed. GI/Hep Protein calorie malnutrition Acute on chronic normocytic anemia In the setting of Severe gastritis Proctitis, likely acute Constipation Vs. bowel ileus Dx: - CT abdomen pelvis: Significant thickening of the gastric mucosa. Abundant stool in the rectosigmoid without bowel obstruction. Rectal wall thickening possible proctitis. Severe osteopenia;Protein 2.5 , Albumin 1.5. - Body weight 55 kg , BMI 19.7; Significant muscle wasting. Loss of subcutaneous fat. Poor nutritional intake of <50% of recommended calories. - Bedridden or otherwise significantly reduced functional capacity Rx: - Speech recommended blenderized diet RRx: - Wallcovering Hanger recommended consistent carb diet if oral intake is feasible RENAL Hypernatremia DDx: Suspecting due to sepsis vs dehydration Dx: -Na continues to be mildly elevated -Pt mental status improved greatly this morning Rx: -Follow up AM CMP Electrolyte abnormalities, improving Acute hypokalemia Hypomagnesemia Hypophosphatemia Hypocalcemia Dx: - On admission: K 2.4, Mg 1.1, Ca 7.0, Phos 2.3 - Likely in the setting of poor oral intake - 04/13 Improved: K 4.2, Mg 1.8, Phos 2.8, Ca 9.2 Rx: - Ordered AM CMP - Repleting e-lytes as needed. ENDO T2 IDDM Dx: - A1c 8.1% - Home meds: Metformin 1g BID - Blood glucose 100 04/13 Rx: - Insulin sliding scale q6H while NPO - ACHS glucose checks - Hypoglycemia protocol in place - Transition to SC insulin once patient begins oral intake - Recommend prescribing continuous glucose monitor on discharge HEME/ONC Pancytopenia Dx: Admission: WBC 2.2, Hb 7.6, RBC 2.86, PLT 34 04/13: wbc 9.8, hgb 10.5, PLT 43e Rx: - Follow-up blood smear report - Daily CBC and CMP, monitor closely for any signs/symptoms of bleed ID GPC bacteremia Dx: -Blood culture 04/11 show 1/2 GPC resembling Staph on prelim -04/12 MRSA came back positive -Discontinued Cefepime 04/13 Rx: -On Vancomycin and Ceftriaxone 1 gm qday (04/13) RRx: -follow up final cultures MSK/DERM Tinea Capitis Hx of LT foot metatrasal amputation and RT foot 2nd digit amputation Dx: - Physical exam shows diffuse crusted rash over the frontal scalp - History of left metatarsal amputation and right second digit amputation. Well-healed scars on physical exam Rx: - terbinafine topical 2 g TID for tinea capitis Nasal lesion, possibly basal cell carcinoma Axillary lymphadenopathy Dx: Lesion noted on the tip of the nose on exam, pearly edges and no discharge CT CAP: associated axillary lymphadenopathy Rx: Recommend oncology consult in house for further evaluation ICU Health maintenance: Dispo: Plan to downgrade to telemetry Diet: Blenderized Diet DVT ppx: Enoxaparin 40mg SC daily GI ppx: Protonix 40 mg IV qday IV lines: 2 pIV Central line: No Arterial line: No Contact Precautions: No Code status: FULL CODE Attending Provider Attestation/Addendum Patient seen and examined resident team. Agree with above. In brief is a 69-year-old female admitted to the ICU for distributive shock. The patient was found to be septic and hypothermic. 1 out of 2 blood cultures were positive for GPC. Per the prelim report they appear to be staph. She is MRSA positive. Will continue the vancomycin. Will DC the cefepime. Have repeated blood cultures. The patient's shock is improved today and she is currently off pressors. She is currently hypernatremic with a free water deficit. Will encourage p.o. intake. Currently has a hyperchloremic nongap acidosis. She is noted to have moderate AV stenosis on echo which is consistent with her physical exam. She also has diastolic dysfunction. She did develop some degree of pulmonary edema overnight which was treated with Lasix. She has shown improvement. At this point in time she appears hemodynamically stable for downgrade Labs, imaging and records reviewed Approximately 38 minutes required for evaluation, exam, review, intervention, discussion and formulation of plan of care
[2025-04-13 11:25] LABS: Sodium 148 mMol/L (136-145)
--- NOTE | 2025-04-13 14:42 | ESPR_ITS ---
<Statement entered by Keaton Baltazar MD - 04/13/25 20:46> Patient was seen and evaluated at bedside this morning. Patient was downgraded to the medical floor todays after a short stay in the ICU due to shock. Patient initially presented with hypothermia, AMS, and bradycardia. Had a short course of dopamine and followed up by levophed. Patient was on broad spectrum Abx and currently on vanco, flagyl, and rocephin. Patient imaging showed PNA L base and possible proctitis. Patient does not answer questions appropriately and only with a yes or complaint of pain with ow . Will continue current management and pending repeat blood cultures as initials grew GPC in 1 out of 2 bottles. I have reviewed the note and agree with the resident's assessment & plan with exceptions as below. I have personally reviewed labs, imaging, home meds/prior records, examined the patient, formulated and discussed management plan with my attending Keaton Baltazar PGY2 Disclaimer: Even though this this note was dictated by speech recognition and even though it was carefully revised there may still be minor errors in photograph printer due to voice recognition software. Documentation for date of: 04/13/25 Subjective Subjective Interval history: Patient downgraded from ICU. Presented with AMS, BP 79/48 MAP 51-52, HR 46, temp 84.7, WBC 2.2. Directly admitted to ICU requiring dopamine and Levophed pressors. Eventually weaned off and downgraded 04/13. Per ICU, mentation has improved since admission following broad spectrum abx and fluid resuscitation. UA unremarkable, lactic acid 0.9 on admission. Lipase 115. Ammonia 37. CRP neg, ESR 55. BCx 1/2 bottles growing GPC. On interview, patient's communication is limited, replying only ow or yes to any kind of pain asked. Unable to assess orientation as patient does not speak in sentences or reply to questions accordingly. Continue broad spectrum abx vanc, ceftriaxone, and flagyl. No fluids as of now. Continue albumin. Trend Na in the AM and consider D5W if persistently elevated or uptrends. F/u repeat BCx and cortisol. Consider R foot x-ray as patient does have a hx of osteomyelitis. Currently unknown source of distributive shock. Exam Vital Signs Temp Pulse Resp BP Pulse Ox O2 Del Method O2 Flow Rate 97.9 F 57 L 19 104/66 96 Nasal Cannula 2 04/13/25 12:00 04/13/25 12:00 04/13/25 12:00 04/13/25 12:00 04/13/25 12:00 04/13/25 09:01 04/13/25 09:01 Narrative Exam GENERAL: no acute distress, refusing to speak, unable to assess orientation, malodorous HEENT: NC/AT, mucous membranes moist, bilateral sclera anicteric CARDIOVASCULAR: regular rate and rhythm, 4/6 systolic ejection murmur PULMONARY: clear to auscultation bilaterally, no rales/rhonchi/wheezes ABDOMINAL: soft, non-tender, non-distended, no rebound/guarding, bowel sounds present EXTREMITIES: BLE non pitting edema, L foot tarsal amputation, R foot 2nd digit amputation SKIN: warm and dry, widespread small skin lesions scabbed over, flaky forehead NEURO: CN II-XII grossly intact, no focal deficits, alert, following commands Objective Labs 04/15/25 05:40 04/15/25 05:40 Labs: Laboratory Results - last 24 hr 04/12/25 04/12/25 04/13/25 19:25 23:24 04:30 WBC 9.8 D RBC 3.89 L Hgb 10.5 L Hct 31.4 L MCV 81 MCH 27.0 MCHC 33.4 RDW Std Deviation 52.4 H Plt Count 43 L D Neut % (Auto) 88 H Lymph % (Auto) 5 L [place] % (Auto) 4 Eos % (Auto) 3 Baso % (Auto) 1 Neut # (Auto) 8.6 H Lymph # (Auto) 0.5 L [place] # (Auto) 0.4 Eos # (Auto) 0.2 Baso # (Auto) 0.1 Immature Gran # (Auto) 0.04 H Absolute Nucleated RBC 0.02 H Immature Gran % 0 Nucleated RBC % 0 Sodium 151 H 149 H 146 H Potassium 4.2 Chloride 115 H Carbon Dioxide 19.6 L Anion Gap 11 BUN 36 H Creatinine 0.6 Estim Creat Clear Calc 75.1 eGFR > 60 BUN/Creatinine Ratio 60 H Glucose 100 Calculated Osmolality 298 H Calcium 8.7 Corrected Calcium 9.2 Phosphorus 2.8 Magnesium 1.8 Total Bilirubin 0.7 AST 45 H ALT 38 Alkaline Phosphatase 69 Total Protein 5.0 L Albumin 3.4 Globulin 1.6 L Albumin/Globulin Ratio 2.1 Vancomycin Trough Misc Test Result Platelets confirmed 04/13/25 04/13/25 08:38 11:00 WBC RBC Hgb Hct MCV MCH MCHC RDW Std Deviation Plt Count Neut % (Auto) Lymph % (Auto) [place] % (Auto) Eos % (Auto) Baso % (Auto) Neut # (Auto) Lymph # (Auto) [place] # (Auto) Eos # (Auto) Baso # (Auto) Immature Gran # (Auto) Absolute Nucleated RBC Immature Gran % Nucleated RBC % Sodium 148 H 148 H Potassium Chloride Carbon Dioxide Anion Gap BUN Creatinine Estim Creat Clear Calc eGFR BUN/Creatinine Ratio Glucose Calculated Osmolality Calcium Corrected Calcium Phosphorus Magnesium Total Bilirubin AST ALT Alkaline Phosphatase Total Protein Albumin Globulin Albumin/Globulin Ratio Vancomycin Trough 19.7 H Misc Test Result ABG Interpretation ABG results: 04/11/25 21:53 ABG pH 7.29 L ABG pCO2 53 H ABG pO2 90 ABG HCO3 25 ABG O2 Saturation 97 ABG Base Excess -2 Quality Measures Quality Measures VTE prophylaxis Advance care planning discussed with:: patient Assessment & Plan Assessment Current Active Medications: Generic Name Dose Route Start Last Admin Trade Name Freq PRN Reason Stop Dose Admin Dextrose 50 ml 04/12/25 00:08 04/12/25 12:20 Dextrose 50%-Water Inj 50 Ml Syringe IV 05/12/25 00:07 50 ml Q15MIN PRN Administration BG <50 OR BG <70 & pt unresponsive Enoxaparin Sodium 40 mg 04/12/25 21:00 04/13/25 08:52 Enoxaparin Sod Inj 40 Mg/0.4 Ml Syringe SC 04/26/25 20:59 40 mg QDAY HARPER Administration Glucagon 1 mg 04/12/25 00:08 Glucagon Inj 1 Mg Vial IM Q15MIN PRN BG <70, and no IV access Cefepime HCl 1 gm/ Sodium 50 mls @ 100 mls/hr 04/12/25 01:43 04/13/25 14:10 Chloride IV 04/19/25 01:42 100 mls/hr Q8HR HARPER Administration Albumin Human 12.5 gm in 50 mls @ 100 mls/hr 04/13/25 04:04 04/13/25 08:52 Albuminar-25 Ivpb IV 05/13/25 04:03 100 mls/hr QDAY HARPER Administration Vancomycin/Sodium Chloride 750 mg in 150 mls @ 120 mls/hr 04/13/25 10:00 04/13/25 10:51 Vancomycin/Ns 750 Mg Ivpb IV 04/20/25 09:59 120 mls/hr Q12H HARPER Administration Insulin Human Lispro 0 unit 04/12/25 06:00 04/13/25 13:38 Insulin Lispro (Admelog) 1 Unit/0.01 Ml Unit SC 05/12/25 05:59 Not Given Q6HR HARPER Protocol Levetiracetam 1,000 mg 04/12/25 21:00 04/13/25 08:52 Levetiracetam Inj 100 Mg/Ml Vial 5ml IVP 05/12/25 20:59 1,000 mg Q12HR HARPER Administration Multi-Ingredient Ointment 0 oz 04/12/25 12:30 04/13/25 08:53 Min Oil/Pet,White (Eucerin) Cr 16 Oz Btl TOP 05/12/25 12:29 1 applicatio DAILY HARPER Administration Ondansetron HCl 4 mg 04/11/25 22:23 Ondansetron Inj 2 Mg/Ml Inj 2 Ml IVP 05/11/25 22:22 Q6H PRN NAUSEA OR VOMITING Protocol Pantoprazole Sodium 40 mg 04/12/25 10:30 04/13/25 08:52 Pantoprazole Inj 40 Mg Vial IVP 05/12/25 10:29 40 mg QDAY HARPER Administration Pharmacy Consult 1 each 04/12/25 09:00 Vancomycin Pharmacy To Dose 1 Each Each IV 05/12/25 08:59 QDAY PRN RX Terbinafine HCl 2 gm 04/11/25 23:00 04/13/25 08:51 Terbinafine Hcl Cr 1% 12 Gm Tube TOP 05/11/25 22:59 2 gm TID HARPER Administration Plan Jill Holden 69F pmhx significant for primary hypertension, NIDDM2, CAD s/p CABG, hx of CVA, seizure disorder, age-related dementia, left diabetic foot metatarsal amputation, right foot second digit amputation and COPD, who presented to [facility] ED for acute encephalopathy, initially admitted to ICU for distributive shock from unknown source requiring pressor support and downgraded to floors on 10/9. #Distributive shock #Acute encephalopathy #Hypothermia, resolved Patient presented obtunded with AMS, BP 79/48 MAP 51-52, HR 46, temp 84.7, WBC 2.2. Directly admitted to ICU requiring dopamine and Levophed pressors. Eventually weaned off and downgraded 04/13. Per ICU, mentation has improved since admission following broad spectrum abx and fluid resuscitation. UA unremarkable, lactic acid 0.9 on admission. Lipase 115. Ammonia 37. CRP neg, ESR 55. BCx 1/[address] Head no acute processes. CTAP showed L base PNA, consider aspiration PNA, R upper lobe pulmonary nodules, multiple subcentimeter axillary lymph nodes, small b/l pleural effusions, significant thickening of gastric mucosa, abundant stool in rectosigmoid but no bowel obstruction, rectal wall thickening, consider proctitis, severe osteopenia Ddx: likely septic, however unknown source, possible proctitis, PNA, gastritis, vs osteomyelitis as patient improved with fluids and abx. Less likely cardiogenic as patient condition has improved off pressors without continued ionotropic support. Plan: - Continue vancomycin (04/11- ), metronidazole (04/11 - ), ceftriaxone (04/13- - Continue albumin 12.5 gm QD (04/13- - Consider restarting fluids - F/u repeat BCx #Proctitis #Gastritis Patient poor historian, replies yes to pain however when prompted, reports yes to all bodily pain. Unable to localize. Per CTAP imaging as above. Plan: - Continue abx as above - IV pantoprazole 40 mg QD #L Base PNA, possible aspiration #R upper lobe pulmonary nodules #Multiple subcentimeter axillary lymph nodes Patient is poor historian. Endorses yes to shortness of breath. CXR showed mild to moderate CHF, consider superimposed bilateral PNA, further findings CTAP as above. No history of cancer per chart review. Plan: - Abx as above - Consider biopsy lymph nodes #Bradycardia #Moderate aortic stenosis #Essential HTN Patient presented with HR 46 on admission. Resolved following resolution of hypothermia, fluid resuscitation and abx. TSH wnl 2.73, 04/12 TTE: Normal left ventricular size and function. Mild LVH. Stage I diastolic dysfunction. Estimated EF 60-65%. Normal RV size and function. RVSP 40 mmHg with RAP 3. Moderate AV stenosis, mean gradient 31 mmHg, vmax 3.7 to 3.8m/s. MELE 1 sq cm. Mild thickened MV leaflets. Mild MR, AI and TR. Compared to prior study of 06/24/24- increased velocities. Likely 2/2 infectious etiology. Plan: - Cardiology consulted, recs appreciated: bradycardia likely 2/2 hypothermia - Telemetry for cardiac monitoring - Keep K>4 and Mg>2 at all times - F/u cortisol #Electrolyte abnormalities #Hypernatremia, improving #Hypokalemia, resolved #Hyperchloremia, improving #Hypobicarbinemia, improving #Hypophosphatemia, resolved #Hypomagnesemia, resolved #Hypocalcemia, resolved On admission, Na 155, K 2.4, Cl 129, bicarb 18.5, glucose 65, Ca 7.0, phos 2.3, Mg 1.1. s/p D5W in ICU Plan: - Recheck and replete as necessary - Consider D5W if AM Na continues to uptrend #NIDDM2 #Hx of L diabetic foot tarsal amputation #Hx of osteomyelitis of R foot distal fourth metatarsal and proximal phalanx fourth digit #Hx of R big toe abscess s/p I&D of R big toe and 2nd toe amputation (12/04/24) Admission A1c 8.1. Per med rec takes metformin 1g BID. Possible osteomyelitis as source of distributive shock. Plan: - SSI in place #Hx of seizures Per history. On home Keppra 1g BID. Unknown when last seizure occurred. Plan: - Continue home Keppra 1g BID - Consider ordering EEG and/or consulting neurology if encephalopathy worsens #Tinea capitis Diffuse crusted rash over forehead. Plan: - Terbinafine topical 2g TID Hospital management: Lines: PIV Diet: Blenderized Puree Bowel: None GI prophylaxis: IV pantoprazole 40 mg QD DVT prophylaxis: Lovenox Disposition: tele for IV abx CODE STATUS: FULL CODE Plan of care discussed with attending Dr. Mcintosh, and PGY-2 Dr. Gunn. Linda Marsh DO PGY-1 Internal Medicine Attending Provider Attestation/Addendum I have discussed and was present for the essential components of the history, physical examination, diagnosis, and treatment plan with the resident. I agree with the patient's care as documented by the resident and amended herein by me. Jamir Mcintosh DO. Although this document has been carefully reviewed, there may still be some phonetic and other typographical errors. These errors are purely grammatical due to imperfections in the software program and should not be construed in any way to compromise the substance of the patient's medical care during this visit.
[2025-04-13] MEDS: cefTRIAXone/D5w 1gm IV premix 1 GM/50 ML BAG IV (19:20)
[2025-04-14] VITALS: PULSE 50
[2025-04-14 04:00] VITALS: BP 129/89; PULSE 50; RESP 15; TEMP 36.3; O2SAT 100
[2025-04-14] MEDS: TERBINAFINE HCL 1% 2 GM TOP ×2 (05:08→14:05)
[2025-04-14 05:56] VITALS: BMI 22.0
[2025-04-14 06:23] LABS: Basophils # (Auto) 0.1 Thou/mm3 (0.0-0.2); Basophils % (Auto) 1 % (0-2.5); Eosinophils # (Auto) 0.8 Thou/mm3 (0.0-0.5); Eosinophils % (Auto) 9 % (0-10); Hematocrit 28.1 % (36.0-46.0); Hemoglobin 9.5 g/dL (12.0-16.0); Immature Granulocytes Auto 0.03 Thou/mm3 (0.00-0.00); Lymphocytes # (Auto) 0.7 Thou/mm3 (1.0-4.8); Lymphocytes % (Auto) 8 % (10-50); Mean Corpuscular HGB Conc 33.8 g/dl (31.0-37.0); Mean Corpuscular Hemoglobin 26.9 pg (25.0-35.0); Mean Corpuscular Volume 80 fL (80-100); Monocytes # (Auto) 0.3 Thou/mm3 (0.0-0.8); Monocytes % (Auto) 3 % (0-12); Neutrophils # (Auto) 7.3 Thou/mm3 (1.8-7.7); Neutrophils % (Auto) 79 % (37-80); Nucleated Red Blood Cell # 0.00 Thou/mm3 (0.00-0.00); Nucleated Red Blood Cell % 0 /100 WBC (0); RDW Standard Deviation 52.8 fL (36.4-46.3); Red Blood Count 3.53 Miln/mm3 (4.00-5.20); White Blood Count 9.2 Thou/mm3 (3.6-11.0)
[2025-04-14 06:27] LABS: Platelet Count 27 Thou/mm3 (140-440)
[2025-04-14 06:48] LABS: Alanine Aminotransferase 38 U/L (10-49); Albumin, Serum 3.6 gm/dL (3.4-4.8); Albumin/Globulin Ratio 1.7 (1.2-2.2); Alkaline Phosphatase 69 U/L (46-116); Anion Gap 11 (7-16); Aspartate Amino Transferase 43 U/L (0-34); BUN/Creatinine Ratio 52 Ratio (12-20); Bilirubin,Total 0.8 mg/dL (0.3-1.2); Blood Urea Nitrogen 31 mg/dL (9-23); Calcium 9.3 mg/dL (8.3-10.6); Calcium (Corrected) 9.6 mg/dL (8.5-10.1); Carbon Dioxide 23.7 mMol/L (20.0-31.0); Chloride 115 mMol/L (98-107); Creatinine (Component) 0.6 mg/dL (0.6-1.3); Estimated Creatinine Clearance 80.5 mL/min (>60); Globulin 2.1 gm/dL (2.3-3.5); Glucose 61 mg/dL (74-106); Magnesium 2.2 mg/dL (1.6-2.6); Osmolality,Calculated 302 (275-295); Phosphorous 2.7 mg/dL (2.4-5.1); Potassium 3.5 mMol/L (3.4-5.1); Sodium 150 mMol/L (136-145); Total Protein 5.7 gm/dL (5.7-8.2); eGFR > 60 See Note
[2025-04-14 08:00] VITALS: BP 111/55; PULSE 41; PULSE 86; RESP 19; TEMP 35.9; O2SAT 100
--- NOTE | 2025-04-14 08:15 | XR_ITS ---
EXAMINATION: AP chest single view TECHNIQUE: AP portable upright chest single view Date and time: April 14, 2025, 0844 hours, comparison April 13, 2025 INDICATIONS: Shortness of breath today FINDINGS: Diffuse left lung pneumonia again depicted Mild insertional heart failure with mild enlargement left ventricle prominent vascular congestion and perihilar edema CABG Prominent osteopenia IMPRESSION: Persistent diffuse left lung pneumonia with mild heart failure
[2025-04-14 08:21] LABS: Sodium 150 mMol/L (136-145)
[2025-04-14] MEDS: DEXTROSE 5%-WATER 1,000 ML 80 ML IV (08:23)
[2025-04-14] MEDS: cefTRIAXone/D5w 1gm IV premix 1 GM/50 ML BAG IV (08:25)
[2025-04-14] MEDS: levETIRAcetam INJ 100 MG/ML VIAL 5ML 1000 MG IVP ×2 (08:26→22:26)
[2025-04-14] MEDS: MIN OIL/PET,WHITE (Eucerin) CR 16 OZ BTL TOP (08:27)
--- NOTE | 2025-04-14 08:48 | EKG_ITS ---
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
[2025-04-14 09:27] LABS: Slide Review Platelets confirmed
--- NOTE | 2025-04-14 09:45 | ESPR_ITS ---
Documentation for date of: 04/14/25 Subjective Subjective Interval history: Patient was seen and assessed at bedside. Continues to be very confused, unable to answer questions appropriately. Blood pressure improved to 129/89 this morning, systolic still usually in 80s. Heart rate ranged from 46-57. On telemetry noted prolonged HI, repeat EKG shows first-degree block with heart rate of 48. Temperatures continue to fluctuate between 90s 697. Recommend to continue conservative warming. TSH was within normal limits, pending T4. Potassium 3.5, magnesium 2.2, recommend to replete potassium to keep above 4. Exam Vital Signs Temp Pulse Resp BP Pulse Ox O2 Del Method O2 Flow Rate 96.6 F L 86 19 111/55 L 100 Room Air 1 04/14/25 08:00 04/14/25 08:00 04/14/25 08:00 04/14/25 08:00 04/14/25 08:00 04/14/25 08:00 04/13/25 15:00 Narrative Exam Physical Exam General: Awake and in no acute distress. Not conversational. Very confused. Unable to answer questions appropriately. Cachectic. HEENT: Normocephalic, atraumatic, mucous membranes dry. Upper dentures, missing bottom teeth. Heart: Regular rate and rhythm, normal S1 and S2, 4/5 systolic murmur radiating to carotids. Lungs: Clear to auscultation with no wheezing or crackles. Abdomen: Soft, nondistended, nontender, positive bowel sounds. No guarding or rebound tenderness. Neurologic: Alert and oriented x0. Unable to assess as patient is noncompliant with commands. Extremities: No edema. Left foot transmetatarsal amputation. Right foot second digit amputation. Skin: No rash or ecchymoses. Tinea capitis at frontal scalp. Petechial lesions bilateral lower extremities. Objective Labs 04/14/25 12:21 04/14/25 18:40 Labs: Laboratory Results - last 24 hr 04/13/25 04/14/25 04/14/25 11:00 05:16 07:30 WBC 9.2 RBC 3.53 L Hgb 9.5 L Hct 28.1 L MCV 80 MCH 26.9 MCHC 33.8 RDW Std Deviation 52.8 H Plt Count 27 L* D Neut % (Auto) 79 Lymph % (Auto) 8 L [place] % (Auto) 3 Eos % (Auto) 9 Baso % (Auto) 1 Neut # (Auto) 7.3 Lymph # (Auto) 0.7 L [place] # (Auto) 0.3 Eos # (Auto) 0.8 H Baso # (Auto) 0.1 Immature Gran # (Auto) 0.03 H Absolute Nucleated RBC 0.00 Immature Gran % 0 Nucleated RBC % 0 Sodium 148 H 150 H 150 H Potassium 3.5 D Chloride 115 H Carbon Dioxide 23.7 Anion Gap 11 BUN 31 H Creatinine 0.6 Estim Creat Clear Calc 80.5 eGFR > 60 BUN/Creatinine Ratio 52 H Glucose 61 L Calculated Osmolality 302 H Calcium 9.3 Corrected Calcium 9.6 Phosphorus 2.7 Magnesium 2.2 Total Bilirubin 0.8 AST 43 H ALT 38 Alkaline Phosphatase 69 Total Protein 5.7 Albumin 3.6 Globulin 2.1 L Albumin/Globulin Ratio 1.7 Misc Test Result Platelets confirmed ABG Interpretation ABG results: 04/11/25 21:53 ABG pH 7.29 L ABG pCO2 53 H ABG pO2 90 ABG HCO3 25 ABG O2 Saturation 97 ABG Base Excess -2 Quality Measures Quality Measures VTE prophylaxis Advance care planning discussed with:: other Assessment & Plan Assessment Current Active Medications: Generic Name Dose Route Start Last Admin Trade Name Freq PRN Reason Stop Dose Admin Dextrose 50 ml 04/12/25 00:08 04/12/25 12:20 Dextrose 50%-Water Inj 50 Ml Syringe IV 05/12/25 00:07 50 ml Q15MIN PRN Administration BG <50 OR BG <70 & pt unresponsive Enoxaparin Sodium 40 mg 04/12/25 21:00 04/13/25 08:52 Enoxaparin Sod Inj 40 Mg/0.4 Ml Syringe SC 04/26/25 20:59 40 mg On Hold: 04/14/25 07:01 QDAY HARPER Administration Glucagon 1 mg 04/12/25 00:08 Glucagon Inj 1 Mg Vial IM Q15MIN PRN BG <70, and no IV access Vancomycin/Sodium Chloride 750 mg in 150 mls @ 120 mls/hr 04/13/25 10:00 04/13/25 21:25 Vancomycin/Ns 750 Mg Ivpb IV 04/20/25 09:59 120 mls/hr Q12H HARPER Administration Protocol Ceftriaxone Sodium/Dextrose 1 gm in 50 mls @ 100 mls/hr 04/13/25 18:08 04/14/25 08:25 Rocephin/D5w 1gm Iv Premix IV 04/20/25 18:07 100 mls/hr QDAY HARPER Administration Dextrose 1,000 mls @ 80 mls/hr 04/14/25 07:15 04/14/25 08:23 D5w IV 04/14/25 19:44 80 mls/hr .[id number] HARPER Administration Metronidazole 500 mg in 100 mls @ 200 mls/hr 04/14/25 08:47 Flagyl 500 Mg Iv IV 04/21/25 08:46 Q8HR HARPER Insulin Human Lispro 0 unit 04/12/25 06:00 04/14/25 05:23 Insulin Lispro (Admelog) 1 Unit/0.01 Ml Unit SC 05/12/25 05:59 Not Given Q6HR HARPER Protocol Levetiracetam 1,000 mg 04/12/25 21:00 04/14/25 08:26 Levetiracetam Inj 100 Mg/Ml Vial 5ml IVP 05/12/25 20:59 1,000 mg Q12HR HARPER Administration Multi-Ingredient Ointment 0 oz 04/12/25 12:30 04/14/25 08:27 Min Oil/Pet,White (Eucerin) Cr 16 Oz Btl TOP 05/12/25 12:29 1 appln DAILY HARPER Administration Ondansetron HCl 4 mg 04/11/25 22:23 Ondansetron Inj 2 Mg/Ml Inj 2 Ml IVP 05/11/25 22:22 Q6H PRN NAUSEA OR VOMITING Protocol Pantoprazole Sodium 40 mg 04/12/25 10:30 04/14/25 08:27 Pantoprazole Inj 40 Mg Vial IVP 05/12/25 10:29 40 mg QDAY HARPER Administration Pharmacy Consult 1 each 04/12/25 09:00 Vancomycin Pharmacy To Dose 1 Each Each IV 05/12/25 08:59 QDAY PRN RX Terbinafine HCl 2 gm 04/11/25 23:00 04/14/25 05:08 Terbinafine Hcl Cr 1% 12 Gm Tube TOP 05/11/25 22:59 2 gm TID HARPER Administration Plan Patient is a 69-year-old female with past medical history of CAD s/p CABG with history of previous multiple PCI, moderate aortic stenosis, CVA/stroke, seizure disorder with Keppra, essential hypertension, hyperlipidemia, baseline dementia, slurred speech, history of left transmetatarsal amputation with questionable PAD, history of fall with displaced intra-articular fracture of the left hip status post open reduction internal fixation in June 2024 was brought in to the emergency department of worsening altered mental status. Admitted to ICU for acute metabolic encephalopathy in setting of hypertonic hyponatremia and acute hypothermia. Cardiology consulted due to concern for cardiogenic shock given history of CAD and moderate aortic stenosis. #Distributive shock, likely septic or distributive, unlikely cardiogenic #Acute hypothermia #Bradycardia secondary to first-degree heart block #History of aortic stenosis, moderate #History of hypertension #History CVA #History of CAD status post CABG with history of previous multiple PCI Home meds include lisinopril 10 mg daily, aspirin 81 mg daily, Plavix 75 mg daily. On physical exam, auscultated 4/5 ejection systolic murmur radiating to carotids. TSH were normal, A1c was 8.1% in lipid profile showed total cholesterol of 123, HDL of 48 and LDL of 53. Chest x-ray with questionable left-sided pneumonia secondary to aspiration. CT chest abdominal with altered showed small bilateral pleural effusions along with significant thickening of gastric mucosa and some constipation. TTE 06/23/2024 showed normal LV size and function. Mild LVH. Stage I diastolic dysfunction. Estimated EF 60-65%. Normal RV size and function. Moderate AV stenosis, mean gradient 21mmHg, vmax 3.1 m/s. Mild thicken MVL. Midl MR, AI. Trace TR. Bradycardia likely secondary to severe hypothermia. Heart rate now improved to 70s to 80s with conservative treatment of hypothermia. TTE 04/12/25 showed normal left ventricular size and function. Mild LVH. Stage I diastolic dysfunction. Estimated EF 60-65%. Normal RV size and function. RVSP 40 mmHg with RAP 3. Moderate AV stenosis, mean gradient 31 mmHg, vmax 3.7 to 3.8m/s. MELE 1 sq cm. Mild thicken MV leaflets. Mild MR, AI and TR. Compared to prior study of 06/24/24- increased velocities. EKG 04/14 shows sinus bradycardia with first-degree AV block, HI 234, QTc 439. Plan: - Unlikely cardiogenic shock as patient only has moderate aortic stenosis with adequate flow. Likely distributive shock secondary to severe hypothermia or possible sepsis with underlying left lower lobe pneumonia. Patient was bradycardic along with hypotensive on admission which improved with rewarming with a Laverne hugger. - Even if the patient has severe aortic stenosis it is unlikely the patient will be a candidate for TAVR given his multiple comorbidities along with her severe protein calorie malnutrition and will not have good outcome as she is unable to do any kind of rehab. Can consider TAVR for her eventually if her overall clinical status improves over the next few months - Heart rate improved with Laverne hugger. As above, EKG shows first-degree AV block however patient remains asymptomatic with no long pauses noted and is therefore not a candidate for pacemaker placement at this time. ? Stable off Levophed and dopamine. Monitor BP. #Acute hypokalemia #Hypomagnesemia # Hypophosphatemia ##Hypocalcemia Presented with potassium of 2.4 and magnesium 1.1. Overnight given total potassium chloride 40 mEq, magnesium 2 g, calcium gluconate x1. 04/12/2025: Potassium improved to 4.7 at midnight. Calcium improved to 8.7, phosphorus 2.6, magnesium 2.3. ?Keep potassium above 4 and magnesium above 2 #Acute on chronic normocytic anemia #Protein calorie malnutrition Patient presented with altered mental status and acute metabolic encephalopathy, unclear etiology. Appears to have poor oral intake as the patient was also noted to have severely low albumin at 1.5 as well as total protein at 2.5. Hemoglobin 7.6. In setting of acute gastritis and severe malnutrition. BMI 19.6. ? Workup per primary team #Ifk-[id number]-rnhxzietk type 2 diabetes #Hx of LT foot metatrasal amputation and RT foot 2nd digit amputation A1c 8.1. Home meds include metformin 1000 mg twice daily. ?SSI per primary team #Acute encephalopathy in setting of #Hypotonic hyponatremia, severe #Left base PNA, possibly aspiration #Right upper lobe pulmonary nodules #Bilateral pleural effusions, small #Pancytopenia #Proctitis, likely acute #Seizure disorder #Hyperlipidemia #Constipation Vs. bowel ileus #Tinea Capitis #Nasal lesion, possibly basal cell carcinoma #Axillary lymphadenopathy #Baseline dementia #History of questionable PAD with transmetatarsal amputation and right toe amputation #COPD Thank you for your consultation, please do not hesitate to reach out if you have any question or concern Patient plan of care was discussed with the attending physician, Dr. Castellanos. Kenisha Marsh, PGY-1 Attending Provider Attestation/Addendum I have personally seen and examined the patient separately on the above date of service and discussed the plan of care with the resident. I reviewed the resident Dr. Kenisha Marsh consultation progress note and agree with the resident findings and plan in the note above and have also edited the documentation to reflect my findings and plan. Jose Castellanos M.D. Interventional Cardiology
[2025-04-14] MEDS: VANCOMYCIN/NS 750 MG IVPB 750 MG/150 ML BAG 120 MG IV (10:48)
[2025-04-14 10:57] LABS: Free T4 (Free Thyroxine) 0.88 ng/dL (0.89-1.76)
[2025-04-14] MEDS: metroNIDAZOLE/NS 500 MG IVPB 500 MG/100 ML BAG 200 MG IV ×3 (10:58→22:28)
--- NOTE | 2025-04-14 11:17 | ESPR_ITS ---
<Statement entered by Keaton Baltazar MD - 04/14/25 15:14> Patient was seen and evaluated at bedside this morning. No acute overnight events. Patient's sodium did uptrend this morning and it was calculated the patient has a 2 L free water deficit. Will start D5W at a slower rate of 80 cc/h as patient's chest x-ray previously that showed that she could have been fluid overloaded. Repeat chest x-ray showed no major changes therefore we will continue with IV fluids for now. Will continue with vancomycin and Flagyl for now. Switch patient ceftriaxone to cefepime. Patient's repeat blood culture still pending. On an EKG called in this afternoon patient was noticed to have second-degree AV block with a rate of 39, cardiology was updated with his findings and stated that at bedside patient was having a heart rate of 69 and they was likely due to hypothermia. Will start patient on Contra precautions has multiple excoriations seen on the skin which are concerning for possible bedbug, started permethrin treatment. Patient's platelets were 27 this morning therefore held Lovenox, ordered DIC panel. In the afternoon patient had a low temperature with even rectally not measuring accurately and the best temperature measures could was 86.5. At this time a Laverne hugger was started, but even though patient was on the Laverne hugger her temperature was still in the mid to high 80s with a heart rate in the 40s. After a while her temperature did not improve to 94.5. Will continue to monitor patient's temperature and heart rate. I have reviewed the note and agree with the resident's assessment & plan with exceptions as below. I have personally reviewed labs, imaging, home meds/prior records, examined the patient, formulated and discussed management plan with my attending Keaton Baltazar PGY2 Disclaimer: Even though this this note was dictated by speech recognition and even though it was carefully revised there may still be minor errors in simulation technician due to voice recognition software. Documentation for date of: 04/14/25 Subjective Subjective Interval history: No acute overnight events. Patient seen and examined at bedside. Patient continues to not communicate, responding ow when palpating foot and abdomen. Also shaking head side to side response to asking if patient is in pain. Vitals and labs reviewed. Telemetry reviewed, patient was bradycardic high 40s to low 50s. No overnight episodes of hypothermia noted. However in a.m., heart rate 60s. Repeat a.m. EKG sinus bradycardia rate 39 with possible second-degree AV block, however much artifact on EKG. Repeat EKG ordered as a nurse at bedside a few minutes later reported heart rate of 64. WBC 9.2, hemoglobin 9.5, platelets decreased from 43-27. Sodium 150, potassium 3.5 repleted to 30 mEq KPhos, chloride 115, BUN decreased from 36 to 31, glucose 61. On a.m., temperature 96.6, repeat at noon 96.6 however at 2 PM, nurse attempted to recheck temperature with forehead and rectal temperature however no reading could be done, signifying temperature was below 89 degrees. Laverne hugger started with temperature of 86.5. Repeat temperature 94. Continue vancomycin, metronidazole but discontinued ceftriaxone and started cefepime. Continue albumin 12.5 g daily. Started D5W at 80 cc an hour with every 6 hours sodium checks for hypernatremia. Exam Vital Signs Temp Pulse Resp BP Pulse Ox O2 Del Method O2 Flow Rate 96.6 F L 86 19 111/55 L 100 Room Air 1 04/14/25 08:00 04/14/25 08:00 04/14/25 08:00 04/14/25 08:00 04/14/25 08:00 04/14/25 08:00 04/13/25 15:00 Narrative Exam GENERAL: no acute distress, refusing to speak, unable to assess orientation, malodorous HEENT: mucous membranes dry, bilateral sclera anicteric CARDIOVASCULAR: regular rate and rhythm, 4/6 systolic ejection murmur PULMONARY: clear to auscultation bilaterally, no rales/rhonchi/wheezes ABDOMINAL: soft, non-tender, non-distended, no rebound/guarding, bowel sounds present EXTREMITIES: BLE non pitting edema, L foot tarsal amputation, R foot 2nd digit amputation SKIN: warm and dry, widespread small skin lesions scabbed over, flaky forehead NEURO: CN II-XII grossly intact, no focal deficits, alert, following commands Objective Labs 04/15/25 05:40 04/15/25 05:40 Labs: Laboratory Results - last 24 hr 04/13/25 04/14/25 04/14/25 11:00 05:16 07:30 WBC 9.2 RBC 3.53 L Hgb 9.5 L Hct 28.1 L MCV 80 MCH 26.9 MCHC 33.8 RDW Std Deviation 52.8 H Plt Count 27 L* D Neut % (Auto) 79 Lymph % (Auto) 8 L Wharton % (Auto) 3 Eos % (Auto) 9 Baso % (Auto) 1 Neut # (Auto) 7.3 Lymph # (Auto) 0.7 L Wharton # (Auto) 0.3 Eos # (Auto) 0.8 H Baso # (Auto) 0.1 Immature Gran # (Auto) 0.03 H Absolute Nucleated RBC 0.00 Immature Gran % 0 Nucleated RBC % 0 Sodium 148 H 150 H 150 H Potassium 3.5 D Chloride 115 H Carbon Dioxide 23.7 Anion Gap 11 BUN 31 H Creatinine 0.6 Estim Creat Clear Calc 80.5 eGFR > 60 BUN/Creatinine Ratio 52 H Glucose 61 L Calculated Osmolality 302 H Calcium 9.3 Corrected Calcium 9.6 Phosphorus 2.7 Magnesium 2.2 Total Bilirubin 0.8 AST 43 H ALT 38 Alkaline Phosphatase 69 Total Protein 5.7 Albumin 3.6 Globulin 2.1 L Albumin/Globulin Ratio 1.7 Free T4 0.88 L Misc Test Result Platelets confirmed ABG Interpretation ABG results: 04/11/25 21:53 ABG pH 7.29 L ABG pCO2 53 H ABG pO2 90 ABG HCO3 25 ABG O2 Saturation 97 ABG Base Excess -2 Quality Measures Quality Measures VTE prophylaxis Advance care planning discussed with:: other Assessment & Plan Assessment Current Active Medications: Generic Name Dose Route Start Last Admin Trade Name Mino PRN Reason Stop Dose Admin Dextrose 50 ml 04/12/25 00:08 04/12/25 12:20 Dextrose 50%-Water Inj 50 Ml Syringe IV 05/12/25 00:07 50 ml Q15MIN PRN Administration BG <50 OR BG <70 & pt unresponsive Enoxaparin Sodium 40 mg 04/12/25 21:00 04/13/25 08:52 Enoxaparin Sod Inj 40 Mg/0.4 Ml Syringe SC 04/26/25 20:59 40 mg On Hold: 04/14/25 07:01 QDAY HARPER Administration Glucagon 1 mg 04/12/25 00:08 Glucagon Inj 1 Mg Vial IM Q15MIN PRN BG <70, and no IV access Vancomycin/Sodium Chloride 750 mg in 150 mls @ 120 mls/hr 04/13/25 10:00 04/13/25 21:25 Vancomycin/Ns 750 Mg Ivpb IV 04/20/25 09:59 120 mls/hr Q12H HARPER Administration Protocol Ceftriaxone Sodium/Dextrose 1 gm in 50 mls @ 100 mls/hr 04/13/25 18:08 04/14/25 08:25 Rocephin/D5w 1gm Iv Premix IV 04/20/25 18:07 100 mls/hr QDAY HARPER Administration Dextrose 1,000 mls @ 80 mls/hr 04/14/25 07:15 04/14/25 08:23 D5w IV 04/14/25 19:44 80 mls/hr .[id number] HARPER Administration Metronidazole 500 mg in 100 mls @ 200 mls/hr 04/14/25 08:47 04/14/25 10:58 Flagyl 500 Mg Iv IV 04/21/25 08:46 200 mls/hr Q8HR HARPER Administration Insulin Human Lispro 0 unit 04/12/25 06:00 04/14/25 05:23 Insulin Lispro (Admelog) 1 Unit/0.01 Ml Unit SC 05/12/25 05:59 Not Given Q6HR HARPER Protocol Levetiracetam 1,000 mg 04/12/25 21:00 04/14/25 08:26 Levetiracetam Inj 100 Mg/Ml Vial 5ml IVP 05/12/25 20:59 1,000 mg Q12HR HARPER Administration Multi-Ingredient Ointment 0 oz 04/12/25 12:30 04/14/25 08:27 Min Oil/Pet,White (Eucerin) Cr 16 Oz Btl TOP 05/12/25 12:29 1 appln DAILY HARPER Administration Ondansetron HCl 4 mg 04/11/25 22:23 Ondansetron Inj 2 Mg/Ml Inj 2 Ml IVP 05/11/25 22:22 Q6H PRN NAUSEA OR VOMITING Protocol Pantoprazole Sodium 40 mg 04/12/25 10:30 04/14/25 08:27 Pantoprazole Inj 40 Mg Vial IVP 05/12/25 10:29 40 mg QDAY HARPER Administration Permethrin 0 gm 04/14/25 10:45 Permethrin Cr 5% 60 Gm Tube TOP 05/14/25 10:44 UD [facility] Pharmacy Consult 1 each 04/12/25 09:00 Vancomycin Pharmacy To Dose 1 Each Each IV 05/12/25 08:59 QDAY PRN RX Terbinafine HCl 2 gm 04/11/25 23:00 04/14/25 05:08 Terbinafine Hcl Cr 1% 12 Gm Tube TOP 05/11/25 22:59 2 gm TID [facility] Administration Plan Jill Holden 69F pmhx significant for primary hypertension, NIDDM2, CAD s/p CABG, hx of CVA, seizure disorder, age-related dementia, left diabetic foot metatarsal amputation, right foot second digit amputation and COPD, who presented to [facility] ED for acute encephalopathy, initially admitted to ICU for distributive shock from unknown source requiring pressor support and downgraded to floors on 04/13. #Distributive shock likely 2/2 to L Base PNA #Acute encephalopathy #Hypothermia, resolved Patient presented obtunded with AMS, BP 79/48 MAP 51-52, HR 46, temp 84.7, WBC 2.2. Directly admitted to ICU requiring dopamine and Levophed pressors. Eventually weaned off and downgraded 04/13. Per ICU, mentation has improved since admission following broad spectrum abx and fluid resuscitation. UA unremarkable, lactic acid 0.9 on admission. Lipase 115. Ammonia 37. CRP neg, ESR 55. BCx 1/[address] Head no acute processes. CTAP showed L base PNA, consider aspiration PNA, R upper lobe pulmonary nodules, multiple subcentimeter axillary lymph nodes, small b/l pleural effusions, significant thickening of gastric mucosa, abundant stool in rectosigmoid but no bowel obstruction, rectal wall thickening, consider proctitis, severe osteopenia Ddx: likely septic, however unknown source, possible proctitis, PNA, gastritis, vs osteomyelitis as patient improved with fluids and abx. Less likely cardiogenic as patient condition has improved off pressors without continued ionotropic support. Ceftriaxone (04/13-04/14) Plan: - Continue vancomycin (04/11- ), metronidazole (04/11, 04/14 - ), cefepime (04/14- - Continue albumin 12.5 gm QD (04/13- - F/u repeat BCx #Proctitis #Gastritis Patient poor historian, replies yes to pain however when prompted, reports yes to all bodily pain. Unable to localize. Per CTAP imaging as above. Plan: - Continue abx as above - IV pantoprazole 40 mg QD #L Base PNA, possible aspiration #R upper lobe pulmonary nodules #Multiple subcentimeter axillary lymph nodes Patient is poor historian. Endorses yes to shortness of breath. CXR showed mild to moderate CHF, consider superimposed bilateral PNA, further findings CTAP as above. No history of cancer per chart review. Plan: - Abx as above - Patient attempted to be informed regarding lymph nodes, plans to reach out to family - Recommend to follow up outpatient for further management #Bradycardia #Moderate aortic stenosis #Essential HTN Patient presented with HR 46 on admission. Resolved following resolution of hypothermia, fluid resuscitation and abx. TSH wnl 2.73, 04/12 TTE: Normal left ventricular size and function. Mild LVH. Stage I diastolic dysfunction. Estimated EF 60-65%. Normal RV size and function. RVSP 40 mmHg with RAP 3. Moderate AV stenosis, mean gradient 31 mmHg, vmax 3.7 to 3.8m/s. MELE 1 sq cm. Mild thickened MV leaflets. Mild MR, AI and TR. Compared to prior study of 06/24/24- increased velocities. Likely 2/2 infectious etiology vs heart block. Plan: - Cardiology consulted, recs appreciated: likely 2/2 hypothermia - Telemetry for cardiac monitoring - Keep K>4 and Mg>2 at all times - F/u cortisol #Anemia of chronic disease #Normocytic normochronic anemia #Severe thrombocytopenia On admission Hgb platelets 34, dropped to as low as 27. Peripheral smear shows normocytic normochronic anemia with normal serium iron and TIBC, consistent with anemia of chronic disease, severe thrombocytopenia, and mild neutropenia. Vitals remains stable at this time. Plan: - CTM CBC - No platelet transfusion at this time as patient is hemodynamically stable with blood pressure holding and HR wnl, consider platelet transfusion if platelet becomes hemodynamically unstable - DVT prophylaxis Lovenox held - Will order initial labs for thrombocytopenia workup to include B12, folate, hepatitis panel possible imaging, DONNIE, reticulocyte count #Electrolyte abnormalities #Hypernatremia, improving #Hypokalemia, resolved #Hyperchloremia, improving #Hypobicarbinemia, improving #Hypophosphatemia, resolved #Hypomagnesemia, resolved #Hypocalcemia, resolved On admission, Na 155, K 2.4, Cl 129, bicarb 18.5, glucose 65, Ca 7.0, phos 2.3, Mg 1.1. s/p D5W in ICU Plan: - Recheck and replete as necessary - Start D5W 80 cc/hr with goal of decreasing sodium 10-12 mEq over 24h, decrease rate or stop accordingly if Na reaches or exceeds goal - q6h Na checks x4 #NIDDM2 #Hx of L diabetic foot tarsal amputation #Hx of osteomyelitis of R foot distal fourth metatarsal and proximal phalanx fourth digit #Hx of R big toe abscess s/p I&D of R big toe and 2nd toe amputation (12/04/24) Admission A1c 8.1. Per med rec takes metformin 1g BID. Possible osteomyelitis as source of distributive shock. Plan: - SSI in place #Hx of seizures Per history. On home Keppra 1g BID. Unknown when last seizure occurred. Plan: - Continue home Keppra 1g BID - Consider ordering EEG and/or consulting neurology if encephalopathy worsens #Diffuse excoriations #Tinea capitis In ICU initially some concern for scabies, and per son, patient received permethrin and developed skin lesions. Diffuse crusted rash over forehead. Patient continues to scratch, Plan: - Contact precautions - Start permethrin at localized area to monitor for sensitivity reaction - Terbinafine topical 2g TID Hospital management: Lines: PIV Diet: Blenderized Puree Bowel: None GI prophylaxis: IV pantoprazole 40 mg QD DVT prophylaxis: Lovenox, held iso decrease in platelets Disposition: tele for IV abx CODE STATUS: FULL CODE Plan of care discussed with attending Dr. Mcintosh, and PGY-2 Dr. Gunn. Linda Marsh DO PGY-1 Internal Medicine Attending Provider Attestation/Addendum I have discussed and was present for the essential components of the history, physical examination, diagnosis, and treatment plan with the resident. I agree with the patient's care as documented by the resident and amended herein by me. Jamir Mcintosh DO. Although this document has been carefully reviewed, there may still be some phonetic and other typographical errors. These errors are purely grammatical due to imperfections in the software program and should not be construed in any way to compromise the substance of the patient's medical care during this visit.
--- NOTE | 2025-04-14 11:51 | EKG_ITS ---
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
[2025-04-14 12:00] VITALS: BP 106/68; PULSE 43; PULSE 77; RESP 19; TEMP 35.9
[2025-04-14] MEDS: PERMETHRIN CR 5% 60 GM TUBE TOP (12:41)
[2025-04-14 12:48] LABS: Basophils # (Auto) 0.0 Thou/mm3 (0.0-0.2); Basophils % (Auto) 0 % (0-2.5); Eosinophils # (Auto) 0.9 Thou/mm3 (0.0-0.5); Eosinophils % (Auto) 12 % (0-10); Hematocrit 27.4 % (36.0-46.0); Hemoglobin 9.2 g/dL (12.0-16.0); Immature Granulocytes Auto 0.04 Thou/mm3 (0.00-0.00); Lymphocytes # (Auto) 0.7 Thou/mm3 (1.0-4.8); Lymphocytes % (Auto) 9 % (10-50); Mean Corpuscular HGB Conc 33.6 g/dl (31.0-37.0); Mean Corpuscular Hemoglobin 26.7 pg (25.0-35.0); Mean Corpuscular Volume 79 fL (80-100); Monocytes # (Auto) 0.2 Thou/mm3 (0.0-0.8); Monocytes % (Auto) 3 % (0-12); Neutrophils # (Auto) 5.8 Thou/mm3 (1.8-7.7); Neutrophils % (Auto) 75 % (37-80); Nucleated Red Blood Cell # 0.00 Thou/mm3 (0.00-0.00); Nucleated Red Blood Cell % 0 /100 WBC (0); RDW Standard Deviation 52.2 fL (36.4-46.3); Red Blood Count 3.45 Miln/mm3 (4.00-5.20); White Blood Count 7.7 Thou/mm3 (3.6-11.0)
[2025-04-14 12:56] LABS: Platelet Count 23 Thou/mm3 (140-440)
[2025-04-14 13:01] LABS: Sodium 149 mMol/L (136-145)
[2025-04-14 13:14] LABS: Fibrinogen 383 mg/dL (175-375); INR 1.1 (0.9-1.3); Partial Thromboplastin Time 42.9 Seconds (22.0-36.0); Prothrombin Time 11.4 Seconds (9.0-12.2)
[2025-04-14 13:15] LABS: Slide Review Platelets confirmed
[2025-04-14 13:18] LABS: Band Neutrophils (Manual) 5 % (0-6); Eosinophils (Manual) 17 % (0-4); Lymphocytes (Manual) 4 % (20-44); Monocytes (Manual) 4 % (2-9); Neutrophils (Manual) 70 % (50-70)
[2025-04-14 14:17] LABS: D-Dimer < 250 ng/mL (<600)
[2025-04-14] MEDS: CEFEPIME INJ 2 GM in SODIUM CHLORIDE 0.9% (Popper) 50 ML IV ×2 (15:23→22:25)
--- NOTE | 2025-04-14 15:44 | PC.SS ---
APS reported submitted. Written report provided to KARIS Jones screener. SOC 341 faxed to [phone]. Copy of SOC 341 placed in patient's chart. Bedside nurse and resident provided update.
[2025-04-14] MEDS: POT PHOS 15 mMol in NS 250 ML 15 MMOL/250 ML BAG 62.5 MMOL IV ×2 (15:50→19:53)
[2025-04-14 16:00] VITALS: BP 107/56; PULSE 55; PULSE 83; RESP 18; TEMP 35.6
[2025-04-14 17:04] LABS: Lactate (Lactic Acid) 1.6 mMol/L (0.4-2.0)
--- NOTE | 2025-04-14 17:57 | PD.RESEVENT ---
Documentation for date of: 04/14/25 Event Note Event Note: Spoke with patient's son Jorge Comer, medical surrogate, around 5:20 PM this afternoon to provide updates on the patient's condition. Jorge had questions concerning with the current management that the patient was receiving at this time and will condition fair to be treated. It was stated to him that at this time patient had a pretty significant pneumonia which is being treated with broad-spectrum antibiotics given that pneumonia is very common cause of mortality in the patient's age group. It was also stated to him that patient is being treated for hypothermia and this was thought to be secondary to patient's infections and that her antibiotics were switched to more broader spectrum for more coverage at this time. Also updated the patient about patient's blood cultures that were positive in the past that were being repeated at this time to see if infection had clear or if it was a true infection at this time and that the current antibiotics covered for this infection. Patient also stated that he knew that patient skin was concerning for scabies, but that she had been treated multiple times for scabies with cream and that the [place] facility she was treated for almost 6 weeks and that her skin after this looked worse and that this time her skin is currently in a better condition than it was prior when she was being treated for scabies. At this time it was informed to him that given that it was told that she had a reaction in the past to scabies treatment a small amount of the treatment was applied to one of her extremities and that she did not have a reaction and that scabies treatment was to be initiated, but he stated that this time he would like to decline treatment for scabies even though she did not have a reaction as he stated that in the past her skin that got worse after treatment with topical cream. He stated that as her medical surrogate he was declined the treatment at this time, therefore at this time cancel order for scabies treatment and patient will not receive the treatment, but will keep patient on contact precautions as high suspicion for scabies. He also stated that he wanted a supply chain program manager to the patient, but was informed that unfortunately we do not have dermatology services in our hospital and that we could recommend to follow-up with outpatient dermatology once patient was stable enough to be discharged. Patient was also clarified that patient needs seizure medications currently being given as he stated that in the past he had concerns due to patient having seizures and come to the ED and being discharged on the same day. At this time all doubts and questions were answered appropriately and patient at the end of the call did not have any further questions. Case disclosed with Attending Dr. Dayna Baltazar PGY2 Disclaimer: Even though this this note was dictated by speech recognition and even though it was carefully revised there may still be minor errors in critical care registered nurse due to voice recognition software.
[2025-04-14 18:58] LABS: Sodium 146 mMol/L (136-145)
[2025-04-14 20:00] VITALS: BP 100/61; PULSE 70; RESP 12; TEMP 36.3; O2SAT 95
--- NOTE | 2025-04-14 21:09 | PC.NURSE ---
notified MD regarding patient blood sugar of 169 mg/ dL. clarifying if patient should receive 1 unit per protocol . patient has not been eating and blood sugars have been fluctuating. per MD okay to hold Lispro 1 unit
[2025-04-14 21:41] LABS: Vancomycin,Trough 27.8 mcg/mL (5.0-10.0)
--- NOTE | 2025-04-14 23:00 | PC.NURSE ---
Made MD aware of patient less active than prior. patient non verbal responds to pain. patient not following any commands. MD came to bedside to assess patient. orders were placed to do ABG, Lactic acid, Head CT.
[2025-04-14 23:43] LABS: Base Excess -2 (-3-3); HCO3 21 mEq/L (20-26); Inspired Oxygen, FIO2 21 %; Lactate (Lactic Acid) 1.1 mMol/L (0.4-2.0); O2 Saturation 94 % (91-98); PCO2 30 mmHg (32.0-48.0); PO2 61 mmHg (83-108); pH, Arterial 7.47 (7.35-7.45)
[2025-04-14 23:44] LABS: Allen Test Performed/OK; Puncture Site Right Radial
--- NOTE | 2025-04-14 23:45 | XR_ITS ---
Examination: CT brain head without contrast. 2-D sagittal coronal reconstructions Date and time of exam: April 15, 2025, 0156 hours COMPARISON: April 11, 2025 INDICATIONS: Altered mental status today, patient unresponsive April 11, 2025 CTDI: vol (mGy): 42.80 DLP: (mGycm): 956 Technique: Multiple CT axial sections of the brain have been obtained, 5 mm slice thickness. Contrast has not been administered. 2-D sagittal, coronal reconstructions have been obtained Low dose protocols were performed. One or more of the following dose reduction techniques were used; automated exposure control, adjustment of the mA and/or KV according to patient size, use of iterative reconstruction technique. Findings: No significant ventricular enlargement. Old infarct right occipital lobe Intra-axial or extra-axial hemorrhage density is not seen. No mass effect or midline shift Basal cisterns are not remarkable. Fourth ventricle is midline. Cranial vault intact. Impression: Negative for acute hemorrhage, mass effect or midline shift As clinically warranted, consider brain MRI follow-up, stroke protocol
[2025-04-15] VITALS (10 sets, daily range): BP systolic 106–155; BP diastolic 62–81; PULSE 19–78; RESP 16–93; TEMP 35.9–36.3; O2SAT 93–99; BMI 22.0
[2025-04-15 01:46] LABS: Anion Gap 12 (7-16); BUN/Creatinine Ratio 51 Ratio (12-20); Blood Urea Nitrogen 36 mg/dL (9-23); Calcium 8.9 mg/dL (8.3-10.6); Carbon Dioxide 21.1 mMol/L (20.0-31.0); Chloride 115 mMol/L (98-107); Creatinine (Component) 0.7 mg/dL (0.6-1.3); Estimated Creatinine Clearance 69.0 mL/min (>60); Glucose 120 mg/dL (74-106); Osmolality,Calculated 303 (275-295); Potassium 4.5 mMol/L (3.4-5.1); Sodium 148 mMol/L (136-145); eGFR > 60 See Note
--- NOTE | 2025-04-15 03:04 | PRELIM_ITS ---
CT scan of the head without intravenous contrast (axial sections with sagittal and coronal reformats) April 15, 2025 0156 hours Clinical history: Altered mental status. Comparison: None available at the time of this report. 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 There is no evidence of intracranial hemorrhage, mass effect or midline shift. There are periventricular white matter hypodensities, compatible with chronic small vessel ischemia. There is moderate volume loss. The calvarium is unremarkable. The mastoid air cells and the visualized paranasal sinuses are clear. Impression: No evidence of intracranial hemorrhage, mass effect or midline shift. Periventricular chronic small vessel ischemia and volume loss. Aspect score 10. Report Electronically Signed By: Thomas Ballesteros 04/15/2025 3:03:37 AM [EST]
[2025-04-15] MEDS: CEFEPIME INJ 2 GM in SODIUM CHLORIDE 0.9% (Popper) 50 ML IV ×3 (05:33→21:15)
[2025-04-15] MEDS: metroNIDAZOLE/NS 500 MG IVPB 500 MG/100 ML BAG 200 MG IV ×3 (05:34→21:15)
[2025-04-15] MEDS: TERBINAFINE HCL 1% 2 GM TOP ×3 (05:34→21:17)
[2025-04-15 06:02] LABS: Basophils # (Auto) 0.0 Thou/mm3 (0.0-0.2); Basophils % (Auto) 0 % (0-2.5); Eosinophils # (Auto) 0.3 Thou/mm3 (0.0-0.5); Eosinophils % (Auto) 4 % (0-10); Hematocrit 28.3 % (36.0-46.0); Hemoglobin 9.5 g/dL (12.0-16.0); Immature Granulocytes Auto 0.04 Thou/mm3 (0.00-0.00); Lymphocytes # (Auto) 0.5 Thou/mm3 (1.0-4.8); Lymphocytes % (Auto) 8 % (10-50); Mean Corpuscular HGB Conc 33.6 g/dl (31.0-37.0); Mean Corpuscular Hemoglobin 26.6 pg (25.0-35.0); Mean Corpuscular Volume 79 fL (80-100); Monocytes # (Auto) 0.3 Thou/mm3 (0.0-0.8); Monocytes % (Auto) 4 % (0-12); Neutrophils # (Auto) 5.9 Thou/mm3 (1.8-7.7); Neutrophils % (Auto) 83 % (37-80); Nucleated Red Blood Cell # 0.03 Thou/mm3 (0.00-0.00); Nucleated Red Blood Cell % 0 /100 WBC (0); RDW Standard Deviation 53.3 fL (36.4-46.3); Red Blood Count 3.57 Miln/mm3 (4.00-5.20); White Blood Count 7.0 Thou/mm3 (3.6-11.0)
[2025-04-15 06:03] LABS: Platelet Count 29 Thou/mm3 (140-440)
[2025-04-15 06:31] LABS: Alanine Aminotransferase 49 U/L (10-49); Albumin, Serum 3.3 gm/dL (3.4-4.8); Albumin/Globulin Ratio 1.7 (1.2-2.2); Alkaline Phosphatase 117 U/L (46-116); Anion Gap 12 (7-16); Aspartate Amino Transferase 48 U/L (0-34); BUN/Creatinine Ratio 44 Ratio (12-20); Bilirubin,Total 0.7 mg/dL (0.3-1.2); Blood Urea Nitrogen 35 mg/dL (9-23); Calcium 8.4 mg/dL (8.3-10.6); Calcium (Corrected) 9.0 mg/dL (8.5-10.1); Carbon Dioxide 21.5 mMol/L (20.0-31.0); Chloride 115 mMol/L (98-107); Creatinine (Component) 0.8 mg/dL (0.6-1.3); Estimated Creatinine Clearance 60.4 mL/min (>60); Globulin 1.9 gm/dL (2.3-3.5); Glucose 182 mg/dL (74-106); Magnesium 2.3 mg/dL (1.6-2.6); Osmolality,Calculated 307 (275-295); Phosphorous 4.7 mg/dL (2.4-5.1); Potassium 4.6 mMol/L (3.4-5.1); Sodium 148 mMol/L (136-145); Total Protein 5.2 gm/dL (5.7-8.2); eGFR > 60 See Note
--- NOTE | 2025-04-15 07:18 | XR_ITS ---
EXAMINATION: AP chest single view TECHNIQUE: AP portable semiupright chest single view Date and time: April 15, 2025, 0737 hours, comparison April 14, 2025 INDICATIONS: Shortness of breath today FINDINGS: Again noted extensive left lung pneumonia Mild associated heart failure Prominent osteopenia IMPRESSION: No improvement in diffuse significant left lung pneumonia
--- NOTE | 2025-04-15 07:56 | ESPR_ITS ---
<Statement entered by Keaton Baltazar MD - 04/15/25 20:38> Patient was seen and evaluated at bedside this morning. Overnight patient was noted to be more lethargic therefore head CT was ordered, but was negative for any acute hemorrhage, midline shift, or mass effect. This morning patient had a lot more secretions as well as she had overnight where she got deep suctioning and helped improve some of the secretions. Today even with deep suctioning patient still has a lot of secretions therefore consulted pulmonology for further recommendations as patient is on broad-spectrum antibiotics, but pneumonia does not seem to be clearing. At this time patient's prognosis is guarded and given that she has not had any nutritional intake will start PPN with follow lipids due to egg. Allergy this afternoon around 2 PM spoke with the patient's son into detail about the current condition and treatment that she was receiving at this time. He was understanding and all his questions were answered. It was stated to him that at this time prognosis is guarded given that her pneumonia is not clearing, but that she is currently getting coverage for her pneumonia. Pulmonology also recommended NG tube placement to low intermittent suction to decrease the risk of aspiration, but this was unsuccessful as patient was bleeding due to thrombocytopenia. Thrombocytopenia was also likely in the setting of infection, but other etiologies are cannot be ruled out with further labs and imaging. In summary at this time patient's prognosis is guarded, if she continues to deteriorate will likely require ICU level of care if she becomes hypoxic or decompensates. Patient son was made aware of this and of thrombocytopenia workup including HIV, hepatitis panel, and vitamin levels. If patient does become fluid overload we will likely have to diurese, as today we held IV fluids due to some upper extremity edema and increase secretions in the airway. Chest PT ordered and hypertonic saline as well. I have reviewed the note and agree with the resident's assessment & plan with exceptions as above. I have personally reviewed labs, imaging, home meds/prior records, examined the patient, formulated and discussed management plan with my attending Keaton Baltazar PGY2 Disclaimer: Even though this this note was dictated by speech recognition and even though it was carefully revised there may still be minor errors in home health cna due to voice recognition software. Documentation for date of: 04/15/25 Subjective Subjective Interval history: Patient was seen and examined at bedside. Overnight patient was less responsive, thus CT head was ordered, which was negative to mass, hemorrhage, or midline shift. Did not respond to verbal stimuli in the morning; when patient's family was in the room in the afternoon, she did open her eyes or turn her head towards them. Patient sleeps on her left side, which is unusual per family as likes to sleep more on her right; we are attempting to put her more onto her right as she has left-sided pneumonia. Son (medical decision maker) and other family member were brought in for update on patient's clinical condition. This is documented in the event note. Suctioning was performed to remove some secretions; however, due to her low platelet count (29 today) deep suction is not possible due to risk of significant bleeding. NG tube placement was unsuccesful today due to bleeding. Exam Vital Signs Temp Pulse Resp BP Pulse Ox O2 Del Method O2 Flow Rate 96.9 F 19 L 30 H 119/69 94 L Room Air 2 04/15/25 04:00 04/15/25 06:48 04/15/25 04:00 04/15/25 04:00 04/15/25 06:48 04/15/25 04:00 04/15/25 06:48 FiO2 77 04/15/25 06:48 Narrative Exam General: Obtunded, not speaking, no acute distress, more alert and opened eyes with family in room Eyes: PERRL, EOMI. Anicteric, vision grossly intact. Ears: No ear pain, no ear discharge, Hearing grossly intact. Nose: No nasal discharge. Mouth/Throat: dry mucous membranes, no redness, no lesions. Neck: Neck supple, non-tender, no cervical lymphadenopathy. Lungs:MARIE rhonchi and upper airway congestion, No accessory muscle use. Cardio: Systolic ejection murmur, regular rhythm, no JVD or carotid bruits. Abdomen: Soft, non-tender, no palpable masses, peristalsis present, no guarding or rebound. Extremities: Left foot tarsal amputation, right foot second digit amputation, necrotic region right foot first digit Skin: Warm to touch, numerous small skin lesions and excoriations with scabs, flaky forehead Neuro: No apparent new focal neurological deficits, not speaking, opened eyes and moves head when family members present Psych: Obtunded Objective Labs 04/15/25 05:40 04/15/25 05:40 Labs: Laboratory Results - last 24 hr 04/11/25 04/14/25 04/14/25 21:05 05:16 07:30 WBC RBC Hgb Hct MCV MCH MCHC RDW Std Deviation Plt Count Neut % (Auto) Lymph % (Auto) Barnes % (Auto) Eos % (Auto) Baso % (Auto) Neut # (Auto) Lymph # (Auto) Barnes # (Auto) Eos # (Auto) Baso # (Auto) Immature Gran # (Auto) Absolute Nucleated RBC Immature Gran % Neutrophils % (Manual) Monocytes % (Manual) Eosinophils % (Manual) Nucleated RBC % Band Neutrophils Lymphocytes (Manual) PT INR APTT Fibrinogen D-Dimer Puncture Site ABG pH ABG pCO2 ABG pO2 ABG HCO3 ABG O2 Saturation ABG Base Excess FiO2 Sodium 150 H Potassium Chloride Carbon Dioxide Anion Gap BUN Creatinine Estim Creat Clear Calc eGFR BUN/Creatinine Ratio Glucose Calculated Osmolality Lactic Acid Calcium Corrected Calcium Phosphorus Magnesium Total Bilirubin AST ALT Alkaline Phosphatase Total Protein Albumin Globulin Albumin/Globulin Ratio Free T4 0.88 L Vancomycin Trough Random Vancomycin Misc Test Result Platelets confirmed Crossmatch See Detail 04/14/25 04/14/25 04/14/25 12:21 16:57 18:40 WBC 7.7 RBC 3.45 L Hgb 9.2 L Hct 27.4 L MCV 79 L MCH 26.7 MCHC 33.6 RDW Std Deviation 52.2 H Plt Count 23 L* Neut % (Auto) 75 Lymph % (Auto) 9 L Barnes % (Auto) 3 Eos % (Auto) 12 H Baso % (Auto) 0 Neut # (Auto) 5.8 Lymph # (Auto) 0.7 L Barnes # (Auto) 0.2 Eos # (Auto) 0.9 H Baso # (Auto) 0.0 Immature Gran # (Auto) 0.04 H Absolute Nucleated RBC 0.00 Immature Gran % 1 H Neutrophils % (Manual) 70 Monocytes % (Manual) 4 Eosinophils % (Manual) 17 H Nucleated RBC % 0 Band Neutrophils 5 Lymphocytes (Manual) 4 L PT 11.4 INR 1.1 APTT 42.9 H Fibrinogen 383 H D-Dimer < 250 Puncture Site ABG pH ABG pCO2 ABG pO2 ABG HCO3 ABG O2 Saturation ABG Base Excess FiO2 Sodium 149 H 146 H Potassium Chloride Carbon Dioxide Anion Gap BUN Creatinine Estim Creat Clear Calc eGFR BUN/Creatinine Ratio Glucose Calculated Osmolality Lactic Acid 1.6 Calcium Corrected Calcium Phosphorus Magnesium Total Bilirubin AST ALT Alkaline Phosphatase Total Protein Albumin Globulin Albumin/Globulin Ratio Free T4 Vancomycin Trough Random Vancomycin Misc Test Result Platelets confirmed Crossmatch 04/14/25 04/14/25 04/15/25 20:58 23:37 01:19 WBC RBC Hgb Hct MCV MCH MCHC RDW Std Deviation Plt Count Neut % (Auto) Lymph % (Auto) Barnes % (Auto) Eos % (Auto) Baso % (Auto) Neut # (Auto) Lymph # (Auto) Barnes # (Auto) Eos # (Auto) Baso # (Auto) Immature Gran # (Auto) Absolute Nucleated RBC Immature Gran % Neutrophils % (Manual) Monocytes % (Manual) Eosinophils % (Manual) Nucleated RBC % Band Neutrophils Lymphocytes (Manual) PT INR APTT Fibrinogen D-Dimer Puncture Site Right Radial ABG pH 7.47 H ABG pCO2 30 L ABG pO2 61 L ABG HCO3 21 ABG O2 Saturation 94 ABG Base Excess -2 FiO2 21 Sodium 148 H Potassium 4.5 D Chloride 115 H Carbon Dioxide 21.1 Anion Gap 12 BUN 36 H Creatinine 0.7 Estim Creat Clear Calc 69.0 eGFR > 60 BUN/Creatinine Ratio 51 H Glucose 120 H D Calculated Osmolality 303 H Lactic Acid 1.1 Calcium 8.9 Corrected Calcium Phosphorus Magnesium Total Bilirubin AST ALT Alkaline Phosphatase Total Protein Albumin Globulin Albumin/Globulin Ratio Free T4 Vancomycin Trough 27.8 H* Random Vancomycin Misc Test Result Crossmatch 04/15/25 05:40 WBC 7.0 RBC 3.57 L Hgb 9.5 L Hct 28.3 L MCV 79 L MCH 26.6 MCHC 33.6 RDW Std Deviation 53.3 H Plt Count 29 L* D Neut % (Auto) 83 H Lymph % (Auto) 8 L Barnes % (Auto) 4 Eos % (Auto) 4 Baso % (Auto) 0 Neut # (Auto) 5.9 Lymph # (Auto) 0.5 L Barnes # (Auto) 0.3 Eos # (Auto) 0.3 Baso # (Auto) 0.0 Immature Gran # (Auto) 0.04 H Absolute Nucleated RBC 0.03 H Immature Gran % 1 H Neutrophils % (Manual) Monocytes % (Manual) Eosinophils % (Manual) Nucleated RBC % 0 Band Neutrophils Lymphocytes (Manual) PT INR APTT Fibrinogen D-Dimer Puncture Site ABG pH ABG pCO2 ABG pO2 ABG HCO3 ABG O2 Saturation ABG Base Excess FiO2 Sodium 148 H Potassium 4.6 Chloride 115 H Carbon Dioxide 21.5 Anion Gap 12 BUN 35 H Creatinine 0.8 Estim Creat Clear Calc 60.4 L eGFR > 60 BUN/Creatinine Ratio 44 H Glucose 182 H D Calculated Osmolality 307 H Lactic Acid Calcium 8.4 Corrected Calcium 9.0 Phosphorus 4.7 Magnesium 2.3 Total Bilirubin 0.7 AST 48 H ALT 49 Alkaline Phosphatase 117 H D Total Protein 5.2 L Albumin 3.3 L Globulin 1.9 L Albumin/Globulin Ratio 1.7 Free T4 Vancomycin Trough Random Vancomycin Cancelled Misc Test Result Crossmatch ABG Interpretation ABG results: 04/11/25 04/14/25 21:53 23:37 ABG pH 7.29 L 7.47 H ABG pCO2 53 H 30 L ABG pO2 90 61 L ABG HCO3 25 21 ABG O2 Saturation 97 94 ABG Base Excess -2 -2 Quality Measures Quality Measures VTE prophylaxis Advance care planning discussed with:: other Assessment & Plan Assessment Current Active Medications: Generic Name Dose Route Start Last Admin Trade Name Freq PRN Reason Stop Dose Admin Dextrose 50 ml 04/12/25 00:08 04/12/25 12:20 Dextrose 50%-Water Inj 50 Ml Syringe IV 05/12/25 00:07 50 ml Q15MIN PRN Administration BG <50 OR BG <70 & pt unresponsive Enoxaparin Sodium 40 mg 04/12/25 21:00 04/13/25 08:52 Enoxaparin Sod Inj 40 Mg/0.4 Ml Syringe SC 04/26/25 20:59 40 mg On Hold: 04/14/25 07:01 QDAY [facility] Administration Glucagon 1 mg 04/12/25 00:08 Glucagon Inj 1 Mg Vial IM Q15MIN PRN BG <70, and no IV access Vancomycin/Sodium Chloride 750 mg in 150 mls @ 120 mls/hr 04/13/25 10:00 04/14/25 22:16 Vancomycin/Ns 750 Mg Ivpb IV 04/20/25 09:59 Not Given Q12H [facility] Protocol Metronidazole 500 mg in 100 mls @ 200 mls/hr 04/14/25 08:47 04/15/25 05:34 Flagyl 500 Mg Iv IV 04/21/25 08:46 200 mls/hr Q8HR [facility] Administration Cefepime HCl 2 gm/ Sodium 50 mls @ 100 mls/hr 04/14/25 15:11 04/15/25 05:33 Chloride IV 04/21/25 15:10 100 mls/hr Q8HR [facility] Administration Dextrose 1,000 mls @ 75 mls/hr 04/15/25 07:00 D5w IV 04/15/25 20:19 .[id number] [facility] Insulin Human Lispro 0 unit 04/14/25 21:00 04/15/25 07:30 Insulin Lispro (Admelog) 1 Unit/0.01 Ml Unit SC 05/14/25 20:59 Not Given ACHS [facility] Protocol Levetiracetam 1,000 mg 04/12/25 21:00 04/14/25 22:26 Levetiracetam Inj 100 Mg/Ml Vial 5ml IVP 05/12/25 20:59 1,000 mg Q12HR [facility] Administration Multi-Ingredient Ointment 0 oz 04/12/25 12:30 04/14/25 08:27 Min Oil/Pet,White (Eucerin) Cr 16 Oz Btl TOP 05/12/25 12:29 1 appln DAILY [facility] Administration Ondansetron HCl 4 mg 04/11/25 22:23 Ondansetron Inj 2 Mg/Ml Inj 2 Ml IVP 05/11/25 22:22 Q6H PRN NAUSEA OR VOMITING Protocol Pantoprazole Sodium 40 mg 04/12/25 10:30 04/14/25 08:27 Pantoprazole Inj 40 Mg Vial IVP 05/12/25 10:29 40 mg QDAY [facility] Administration Pharmacy Consult 1 each 04/12/25 09:00 Vancomycin Pharmacy To Dose 1 Each Each IV 05/12/25 08:59 QDAY PRN RX Terbinafine HCl 2 gm 04/11/25 23:00 04/15/25 05:34 Terbinafine Hcl Cr 1% 12 Gm Tube TOP 05/11/25 22:59 2 gm TID [facility] Administration Plan Jill Holden 69F pmhx significant for primary hypertension, NIDDM2, CAD s/p CABG, hx of CVA, seizure disorder, age-related dementia, left diabetic foot metatarsal amputation, right foot second digit amputation and COPD, who presented to [facility] ED for acute encephalopathy, initially admitted to ICU for distributive shock from unknown source requiring pressor support and downgraded to floors on 04/13. #Distributive shock likely secondary to aspiration pneumonia -improved #Acute encephalopathy -likely secondary to above #L Base PNA, possible aspiration with gram-negative versus anaerobic bacteria #Hypothermia #thrombocytopenia Patient presented obtunded with AMS, BP 79/48 MAP 51-52, HR 46, temp 84.7, WBC 2.2. Directly admitted to ICU requiring dopamine and Levophed pressors. Eventually weaned off and downgraded 04/13. Per ICU, mentation has improved since admission following broad spectrum abx and fluid resuscitation. UA unremarkable, lactic acid 0.9 on admission. Lipase 115. Ammonia 37. CRP neg, ESR 55. BCx 1/[address] Head no acute processes. CTAP showed L base PNA, consider aspiration PNA, R upper lobe pulmonary nodules, multiple subcentimeter axillary lymph nodes, small b/l pleural effusions, significant thickening of gastric mucosa, abundant stool in rectosigmoid but no bowel obstruction, rectal wall thickening, consider proctitis, severe osteopenia Ddx: likely septic, however unknown source, possible proctitis, PNA, gastritis, vs osteomyelitis as patient improved with fluids and abx. Less likely cardiogenic as patient condition has improved off pressors without continued ionotropic support. Ceftriaxone (04/13-04/14) On 04/15/2025, patient's clinical condition deteriorated significantly; she was obtunded, and only lifted head and looked towards people after significant stimulation; patient's family was informed about deteriorating clinical state. NG tube placement unsuccessful due to bleeding, and deep suction cannot be done due to low platelet count. Plan: - Continue vancomycin (04/11- ), metronidazole (04/11, 04/14 - ), cefepime (04/14- - F/u repeat BCx?negative at 24 hours ? Expanded workup for causes of thrombocytopenia, will include HIV and hepatitis serologies, peripheral blood smear, reticulocyte count, LDH, B12 levels, folate count, DONNIE, thiamine, Legionella, valley fever - Chest physiotherapy on board - PPN on board to improve nutrition #Proctitis #Gastritis Patient poor historian, replies yes to pain however when prompted, reports yes to all bodily pain. Unable to localize. Per CTAP imaging as above. Plan: - Continue abx as above - IV pantoprazole 40 mg QD #R upper lobe pulmonary nodules #Multiple subcentimeter axillary lymph nodes Findings CTAP as above. No history of cancer per chart review. Plan: - Abx as above - Recommend to follow up outpatient for further management #Bradycardia -improved #Moderate aortic stenosis #Essential HTN Patient presented with HR 46 on admission. Resolved following resolution of hypothermia, fluid resuscitation and abx. TSH wnl 2.73, 04/12 TTE: Normal left ventricular size and function. Mild LVH. Stage I diastolic dysfunction. Estimated EF 60-65%. Normal RV size and function. RVSP 40 mmHg with RAP 3. Moderate AV stenosis, mean gradient 31 mmHg, vmax 3.7 to 3.8m/s. MELE 1 sq cm. Mild thickened MV leaflets. Mild MR, AI and TR. Compared to prior study of 06/24/24- increased velocities. Likely 2/2 infectious etiology vs heart block. Plan: - Cardiology consulted, recs appreciated: likely 2/2 hypothermia - Telemetry for cardiac monitoring - Keep K>4 and Mg>2 at all times - F/u cortisol #Anemia of chronic disease #Normocytic normochronic anemia #Severe thrombocytopenia -infection versus liver disease versus medications versus autoimmune, etiology unknown at this time On admission Hgb platelets 34, on 04/15/2025, count was 29. Peripheral smear shows normocytic normochronic anemia with normal serium iron and TIBC, consistent with anemia of chronic disease, severe thrombocytopenia, and mild neutropenia. Vitals remains stable at this time. Plan: - Trend CBC - No platelet transfusion at this time as patient is hemodynamically stable with blood pressure holding and HR wnl, consider platelet transfusion if platelet becomes hemodynamically unstable - DVT prophylaxis Lovenox held #Electrolyte abnormalities #Hypernatremia, improving #Hypokalemia, resolved #Hyperchloremia, improving #Hypobicarbinemia, improving #Hypophosphatemia, resolved #Hypomagnesemia, resolved #Hypocalcemia, resolved On admission, Na 155, K 2.4, Cl 129, bicarb 18.5, glucose 65, Ca 7.0, phos 2.3, Mg 1.1. s/p D5W in ICU Plan: - Recheck and replete as necessary - D5W at 50 cc/h - q6h Na checks x4 #NIDDM2 #Hx of L diabetic foot tarsal amputation #Hx of osteomyelitis of R foot distal fourth metatarsal and proximal phalanx fourth digit #Hx of R big toe abscess s/p I&D of R big toe and 2nd toe amputation (12/04/24) Admission A1c 8.1. Per med rec takes metformin 1g BID. Possible osteomyelitis as source of distributive shock. Plan: - SSI in place #Hx of seizures Per history. On home Keppra 1g BID. Unknown when last seizure occurred. Plan: - Continue home Keppra 1g BID - Consider ordering EEG and/or consulting neurology if encephalopathy worsens #Diffuse excoriations #Tinea capitis In ICU initially some concern for scabies, and per son, patient received permethrin and developed skin lesions. Diffuse crusted rash over forehead. Patient continues to scratch, Plan: - Contact precautions, secondary to potential scabies infection - Terbinafine topical 2g TID Hospital management: Lines: PIV Diet: Blenderized Puree, PPN Bowel: None GI prophylaxis: IV pantoprazole 40 mg QD DVT prophylaxis: Lovenox held due to continuing severe thrombocytopenia Disposition: tele for IV abx CODE STATUS: FULL CODE This case was discussed with my attending physician, Dr. Mcintosh, and senior resident, Dr. Gunn. Dylan Marroquin MD-PhD, PGY1 Attending Provider Attestation/Addendum I have discussed and was present for the essential components of the history, physical examination, diagnosis, and treatment plan with the resident. I agree with the patient's care as documented by the resident and amended herein by me. Jamir Mcintosh DO. Although this document has been carefully reviewed, there may still be some phonetic and other typographical errors. These errors are purely grammatical due to imperfections in the software program and should not be construed in any way to compromise the substance of the patient's medical care during this visit. Patient seen and evaluated this AM. No acute events overnight, patient very somnolent this morning, difficult to arouse however the patient is responsive to pain and does open her eyes with minimal sternal rub. Temperature was low overnight, minimum was 96.6 however was approximately 97 today during bedside visit. Significant labs include a hemoglobin of 9.5, platelet count 29 which is a slight uptrend, sodium 148, chloride 115 and bicarb of 35. Liver ultrasound was performed today demonstrating mild hepatomegaly, chest x-ray today also demonstrating relatively unchanged diffused left lung pneumonia. Cocci and Legionella serologies pending. Echo as of 04/12 demonstrating mild LVH with stage I diastolic dysfunction, normal LV size and function with an EF estimated at 60 to 65% with moderate AAS. RVSP 40 mmHg with a right atrial pressure of 3. For the patient's sepsis/shock, likely secondary to significant left lobe pneumonia probably from aspiration, we will continue broad-spectrum antibiotics to include vancomycin, Flagyl and cefepime. Will continue to monitor cultures and serologies to include cocci and Legionella. Will also plan to consult pulmonology today for additional recommendations. Bradycardia has been improved over the last day or so, cardiology is consulted, does not believe cardiogenic shock at present, may need a TAVR in the future for but not a surgical candidate at this time. Will continue to monitor electrolytes replete as necessary keep the potassium above 4 and magnesium above 2 per recommendations. For the patient's thrombocytopenia, she has had a slow downtrend since June 2024 however much more severe during this admission. Patient was initially placed on Lovenox on 04/11 which has been held out of concern for possible HIT although the patient was admitted with a low platelet count of 34. Medications as another possibility as the patient is on Plavix at home but has been held here however would not explain the steep decline. Patient was also on other workup for thrombocytopenia includes DONNIE, folate, B12, HIV, vitamin B1, hepatitis panel and liver imaging as stated above. Splenomegaly was not specifically noted however no splenic lesions were noted on CT abdomen and pelvis on 04/11/2025. With the patient's nutrition, dietitian has been consulted for PPN recommendations, considering the patient has an allergy to eggs, lipids cannot be formulated in the solution hence the patient's caloric intake will be very limited hence will be started. Will monitor the patient closely for fluid overload which is a possibility. Patient's prognosis is guarded at this time, she may in fact need a bronchoscopy however with the platelets being very low, this may exclude this procedure. The ICU has been notified for potential transfer back however she is stable for now on the floor and will continue to monitor closely.
[2025-04-15 08:03] LABS: Slide Review Platelets confirmed
[2025-04-15] MEDS: levETIRAcetam INJ 100 MG/ML VIAL 5ML 1000 MG IVP ×2 (09:26→20:14)
[2025-04-15] MEDS: VANCOMYCIN/NS 750 MG IVPB 750 MG/150 ML BAG 120 MG IV (10:38)
[2025-04-15] MEDS: SODIUM CL RT SOL 3% 4 ML NEBU (NON-FORMULARY) INH ×2 (11:40→18:40)
[2025-04-15 12:53] LABS: Vancomycin,Random 24.4 mcg/mL
--- NOTE | 2025-04-15 13:30 | ESCONSULT_ITS ---
<Statement entered by Isidro Gama MD - 04/17/25 07:52> Patient seen and examined at bedside. I discussed and supervised with the international tax manager physician who took care of this patient. I personally saw and examined the patient. I agree with most of the assessment and plan. Plan of care discussed with attending Dr. Ayoub. Isidro Gama MD PGY-2 <Statement entered by Adriel Ayoub MD - 04/16/25 10:21> TOTAL CC TIME: 45 MIN I saw and evaluated the patient. I reviewed the resident?s note and agree with findings and plan as documented in the resident?s note. Upon my evaluation, this patient had a high probability of imminent or life- threatening deterioration due to acute hypoxic respiratory failure which required my direct attention, intervention, and personal management. This time is exclusive of time spent on procedures, which are documented separately if performed. The patient is likely aspirating into the left lung which is accounting for the changes of increased left-sided infiltrates. When we examined her at bedside she was leaning far to the left and the nurse had reported recent episode of emesis. The patient is encephalopathic and has compromised airway clearance capabilities. Minimize all sedatives and other medications that may impair cognition. Consider platelet transfusion followed by NT suctioning. At this time bronchoscopy would be of minimal benefit with risks outweighing benefits due to altered mental status and thrombocytopenia. Reaccumulation of secretions soon after bronchoscopy would be expected which would then increase the risk of continuing to sedate and already altered patient for repeated procedures. If she does not respond to antibiotic therapy, and NT suctioning, she may require intubation at which point bronchoscopy would be safer continue current therapy ICU will continue to follow HPI Data of Consult Requesting Physician: Kevin Mcintosh DO Admitting Provider: Erik Carroll MD Attending Provider: Kevin Mcintosh DO Primary Care Provider: JENNIFER Zhang Consult Narrative History of present illness: 69-year-old female with a past medical history of primary hypertension, type II diabetes mellitus (non?insulin-dependent), coronary artery disease status post CABG (2019), CVA, aortic stenosis, stage I diastolic ysfunction (EF 60-65%), seizure disorder, age-related dementia, left foot metatarsal amputation, right second toe amputation, and COPD, presented to the ED on 04/11/2025 with altered mental status and hypothermia, with an initial recorded temperature of 84.7?F. ED Course (04/11): -Initial vitals were: 79/48, HR 46, RR 12, T 84.7?F, O2 sat 98% on room air. -Labs significant for: pancytopenia WBC 2.2, RBC 2.86, Hgb 7.6, PLT 34; acute electrolyte disturbances Na 155, OSM 307, K2.4, Mg 1.1, Phos 2.3, Ca 7 and chloride 129; ABG showed pH 7.29, bicarb 18.5, CO2 53. Ammonia 37, albumin 1.5. -Imaging included: CXR: Mild to moderate CHF, enlargement cardiac contour with prominent vascular congestion, possible superimmposed bilateral pnuemonia. CT chest abdomen pelvis: left base pneumonia, consider aspiration. Right upper lobe pulmonary nodules. Multiple subcentimeter axillary lymph nodes. Small bilateral pleural effusions. Significant thickening of the gastric mucosa, differential would include gastritis. Abundant stool in the rectosigmoid but no bowel obstruction. Rectal wall thickening, consider proctitis, recommend direct inspection. Severe osteopenia. Head CT: no acute findings. -In the ED, patient was given: Dopamine drip, IV fluids, Zofran, KCl IV, magnesium sulfate, calcium gluconate, Laverne hugger. Patient was admitted to the ICU for further workup and management of acute metabolic encephalopathy in the setting of severe hypothermia (initial temperature 84.7?F) and severe hypernatremia (Na 155). ICU Course (04/12?04/13) The patient was admitted to the ICU for management of distributive shock. She was placed on contact precautions for suspected scabies and managed with a Laverne Hugger for hypothermia. Dopamine was discontinued and Levophed was initiated for blood pressure support. Empiric antibiotics were started with vancomycin, cefepime, and metronidazole for suspected aspiration pneumonia. D5W was initiated to treat both hypothermia and severe hypernatremia. On admission, the patient was found to have a blood glucose of 65 mg/dL and was started on the hypoglycemia protocol. Once glucose levels normalized, hypernatremia was managed with D5W administration. Patient subsequently developed oxygen desaturation to 88%, suspected to be secondary to developing pulmonary edema from D5W. She was transitioned to an Oxymask at 8 L/min, improving oxygen saturation to 90?92%. Aspiration precautions were initiated, and nasal suctioning with one dose of DuoNeb further improved oxygenation to 94?95% on 6 L/min. Due to concern for volume overload, D5W was paused, and the patient received Lasix for diuresis, resulting in improved respiratory status. She was successfully weaned to room air. Vasopressors were titrated off, and she maintained stable hemodynamics without pharmacologic support. Blood cultures were positive for Staphylococcus aureus and MRSA screen was positive. Vancomycin was continued, and cefepime and metonidazole was discontinued. The patient showed steady clinical improvement and was deemed appropriate for downgrade from the ICU on 04/13. Primary team consulted ICU on 04/15 The primary team consulted the ICU for evaluation of the patient's worsening pneumonia, inability to clear secretions, and declining mental status. The consult was specifically to assess whether the patient would benefit from bronchoscopy versus nasogastric suctioning. The ICU team recommends that if the primary team proceeds with NG suctioning to help reduce the risk of further aspiration, platelets should be transfused before NG suctioning, given thrombocytopenia and bleeding risk. Additional recommendations include continuing antibiotic therapy for pneumonia. Should the patient's condition further deteriorate?necessitating intubation or bronchoscopy?ICU upgrade would be warranted at that time. cc:: cc: Kevin Mcintosh, DO Exam Vital Signs Temp Pulse Resp BP Pulse Ox O2 Del Method O2 Flow Rate 96.8 F 66 25 H 136/70 H 97 Nasal Cannula 2 04/15/25 12:04/15/25 12:00 04/15/25 12:00 04/15/25 12:00 04/15/25 12:00 04/15/25 12:00 04/15/25 12:00 FiO2 77 04/15/25 06:48 Narrative Exam General: no acute distress, refuse to speak, unable to assess orientation, thin body habitus, NC present on 6L. Eyes: able to track voice but does not track to visual stimuli or finger movements. bilateral sclera anicteric. Ears: hearing grossly intact. Mouth/Throat: dry mucous membranes Lungs: coarse rhonchi to auscultation on left lung aguayo, clear to auscultation on right lung aguayo. No accessory muscle use. Cardio: Systolic ejection murmur, regular rhythm Abdomen: Soft, non-tender, no palpable masses, no guarding or rebound. Extremities: Left foot tarsal amputation, right foot second digit amputation Skin: Warm to touch, numerous small skin lesions and excoriations with scabs, flaky forehead Neuro: No apparent new focal neurological deficits, not speaking, opened eyes and moves head to voice. Results Labs 04/16/25 04:40 04/16/25 04:40 Labs: Short CBC 04/15/25 Range/Units 05:40 WBC 7.0 (3.6-11.0) Thou/mm3 Hgb 9.5 L (12.0-16.0) g/dL Hct 28.3 L (36.0-46.0) % Plt Count 29 L* D (140-440) Thou/mm3 BMP 04/14/25 04/15/25 04/15/25 18:40 01:19 05:40 Sodium 146 H 148 H 148 H Potassium 4.5 D 4.6 Chloride 115 H 115 H Carbon Dioxide 21.1 21.5 BUN 36 H 35 H Creatinine 0.7 0.8 Glucose 120 H D 182 H D Calcium 8.9 8.4 Liver Function 04/15/25 Range/Units 05:40 Total Bilirubin 0.7 (0.3-1.2) mg/dL AST 48 H (0-34) U/L ALT 49 (10-49) U/L Alkaline Phosphatase 117 H D (46-116) U/L Albumin 3.3 L (3.4-4.8) gm/dL ABG Interpretation ABG results: 04/11/25 04/14/25 21:53 23:37 ABG pH 7.29 L 7.47 H ABG pCO2 53 H 30 L ABG pO2 90 61 L ABG HCO3 25 21 ABG O2 Saturation 97 94 ABG Base Excess -2 -2 Quality Measures Quality Measures VTE prophylaxis Advance care planning discussed with:: patient Medications Home Medications and Allergies Home Medications ?Medication ?Instructions ?Recorded ?Confirmed ?Type clopidogrel 75 mg tablet (Plavix) 75 mg PO QDAY 04/13/25 History isosorbide mononitrate 60 mg 60 mg PO QDAY 10/31/19 History tablet,extended release 24 hr aspirin 81 mg tablet,delayed 81 mg PO QAM 04/23/2103/30 History release Allergies Allergy/AdvReac Type Severity Reaction Status Date / Time lettuce Allergy Severe SWELLING Verified 04/11/25 19:46 Penicillins Allergy Severe HIVES AND Verified 04/11/25 19:46 RESPIRATORY PROBLEMS shellfish derived Allergy Severe Rash Verified 04/11/25 19:46 adhesive Allergy Mild Blister Verified 04/11/25 19:46 iodine Allergy Mild RASH AND Verified 04/11/25 19:46 BLISTERS jaramillo pepper (green pepper) Allergy Unknown RASH, Verified 04/11/25 19:46 SWELLING, SORE TONGUE egg Allergy Unknown RASH Verified 04/11/25 19:46 Visit Medications Dextrose (Dextrose 50%-Water Inj 50 Ml Syringe) 50 ml IV Q15MIN PRN PRN Reason: BG <50 OR BG <70 & pt unresponsive Stop: 05/12/25 00:07 Last Admin: 04/12/25 12:20 Dose: 50 ml Enoxaparin Sodium (Enoxaparin Sod Inj 40 Mg/0.4 Ml Syringe) 40 mg SC QDAY [facility] On Hold: 04/14/25 07:01 Stop: 04/26/25 20:59 Last Admin: 04/13/25 08:52 Dose: 40 mg Glucagon (Glucagon Inj 1 Mg Vial) 1 mg IM Q15MIN PRN PRN Reason: BG <70, and no IV access Metronidazole (Flagyl 500 Mg Iv) 500 mg in 100 mls @ 200 mls/hr IV Q8HR [facility] Stop: 04/21/25 08:46 Last Admin: 04/15/25 05:34 Dose: 200 mls/hr Cefepime HCl 2 gm/ Sodium (Chloride) 50 mls @ 100 mls/hr IV Q8HR [facility] Stop: 04/21/25 15:10 Last Admin: 04/15/25 05:33 Dose: 100 mls/hr Insulin Human Lispro (Insulin Lispro (Admelog) 1 Unit/0.01 Ml Unit) 0 unit SC ACHS [facility]; Protocol Stop: 05/14/25 20:59 Last Admin: 04/15/25 11:57 Dose: Not Given Levetiracetam (Levetiracetam Inj 100 Mg/Ml Vial 5ml) 1,000 mg IVP Q12HR [facility] Stop: 05/12/25 20:59 Last Admin: 04/15/25 09:26 Dose: 1,000 mg Multi-Ingredient Ointment (Min Oil/Pet,White (Eucerin) Cr 16 Oz Btl) 0 oz TOP DAILY [facility] Stop: 05/12/25 12:29 Last Admin: 04/14/25 08:27 Dose: 1 appln Ondansetron HCl (Ondansetron Inj 2 Mg/Ml Inj 2 Ml) 4 mg IVP Q6H PRN; Protocol PRN Reason: NAUSEA OR VOMITING Stop: 05/11/25 22:22 Pantoprazole Sodium (Pantoprazole Inj 40 Mg Vial) 40 mg IVP QDAY [facility] Stop: 05/12/25 10:29 Last Admin: 04/15/25 09:26 Dose: 40 mg Pharmacy Consult (Vancomycin Pharmacy To Dose 1 Each Each) 1 each IV QDAY PRN PRN Reason: RX Stop: 05/12/25 08:59 Sodium Chloride (Sodium Cl Rt Mere 3% 4 Ml Nebu (Non-Formulary)) 4 ml INH Q6HRRT [facility] Stop: 05/15/25 12:59 Last Admin: 04/15/25 11:40 Dose: 4 ml Terbinafine HCl (Terbinafine Hcl Cr 1% 12 Gm Tube) 2 gm TOP TID [facility] Stop: 05/11/25 22:59 Last Admin: 04/15/25 05:34 Dose: 2 gm Discontinued Medications Albuterol/Ipratropium (Albuterol/Ipratropium (Duoneb) Rt Mere 3 Ml Nebu) 3 ml INH X1 ONE Stop: 04/13/25 05:20 Last Admin: 04/13/25 05:30 Dose: 3 ml Calcium Gluconate (Calcium Gluconate 10% Inj 1 Gm/10 Ml Vial) 2 gm IV X1 ONE Stop: 04/11/25 22:31 Last Admin: 04/11/25 23:08 Dose: 2 gm Dextrose (Dextrose 50%-Water Inj 50 Ml Syringe) 50 ml IVP X1 ONE Stop: 04/11/25 21:02 Last Admin: 04/11/25 22:05 Dose: Not Given Famotidine (Famotidine 20 Mg Tablet) 20 mg PO BID [facility] Stop: 05/12/25 08:59 Furosemide (Furosemide Inj 10 Mg/Ml Vial 2 Ml) 20 mg IVP X1 ONE Stop: 04/13/25 05:19 Last Admin: 04/13/25 05:34 Dose: 20 mg Sodium Chloride (Ns) 1,000 mls @ 999 mls/hr IV .Q1H1M [facility] Stop: 04/11/25 20:48 Last Infusion: 04/11/25 22:21 Dose: Infused Dopamine HCl/Dextrose (Intropin In D5w Ivpb) 400 mg in 250 mls @ 10.369 mls/hr IV .Q24H [facility]; Protocol Stop: 05/11/25 19:48 Last Titration: 04/12/25 09:00 Dose: 0 mcg/kg/min, 0 mls/hr Sodium Chloride (Ns) 1,000 mls @ 999 mls/hr IV .Q1H1M ONE Stop: 04/11/25 21:05 Last Infusion: 04/11/25 22:22 Dose: Infused Potassium Chloride (Kcl Ivpb) 10 meq in 100 mls @ 100 mls/hr IV X1 ONE Stop: 04/11/25 21:59 Last Infusion: 04/11/25 23:13 Dose: Infused Potassium Chloride (Kcl Ivpb) 10 meq in 100 mls @ 100 mls/hr IV X1 ONE Stop: 04/11/25 21:59 Last Admin: 04/11/25 23:07 Dose: 100 mls/hr Calcium Gluconate/Sodium Chloride (Calcium Gluc/Ns 1000mg Ivpb) 1,000 mg in 50 mls @ 50 mls/hr IV X1 ONE Stop: 04/11/25 22:01 Last Infusion: 04/11/25 23:15 Dose: Infused Magnesium Sulfate (Magnesium Sulfate Ivpb) 2 gm in 50 mls @ 25 mls/hr IV X1 ONE Stop: 04/11/25 23:01 Last Infusion: 04/11/25 23:45 Dose: Infused Lactated Ringer's (Lactated Ringers) 1,000 mls @ 500 mls/hr IV .Q2H [facility] Stop: 04/12/25 00:23 Last Admin: 04/11/25 23:12 Dose: Not Given Magnesium Sulfate (Magnesium Sulfate Ivpb) 4 gm in 50 mls @ 12.5 mls/hr IV X1 ONE Stop: 04/12/25 02:26 Last Admin: 04/12/25 02:10 Dose: Not Given Potassium Chloride (Kcl Ivpb) 10 meq in 100 mls @ 100 mls/hr IV Q1H [facility] Stop: 04/12/25 02:29 Last Admin: 04/12/25 06:16 Dose: Not Given Dextrose (D5w) 500 mls @ 70 mls/hr IV .Q7H9M [facility] Stop: 05/11/25 22:29 Last Admin: 04/11/25 22:53 Dose: Not Given Albumin Human (Albuminex 25% Ivpb) 25 gm in 100 mls @ 100 mls/hr IV X1 ONE Stop: 04/11/25 23:32 Last Admin: 04/11/25 23:35 Dose: 100 mls/hr Albumin Human (Albuminar-25 Ivpb) 12.5 gm in 50 mls @ 50 mls/hr IV X1 ONE Stop: 04/11/25 23:31 Last Admin: 04/12/25 02:07 Dose: 50 mls/hr Dextrose (D5w) 500 mls @ 999 mls/hr IV .Q31M [facility] Stop: 05/11/25 22:44 Last Admin: 04/11/25 22:53 Dose: Not Given Dextrose (D5w) 500 mls @ 999 mls/hr IV .Q31M [facility] Stop: 04/11/25 23:17 Last Admin: 04/11/25 22:53 Dose: Not Given Dextrose (D5w) 500 mls @ 500 mls/hr IV .Q1H [facility] Stop: 04/11/25 23:56 Last Infusion: 04/11/25 23:50 Dose: Infused Ceftriaxone Sodium/Dextrose (Rocephin/D5w 1gm Iv Premix) 1 gm in 50 mls @ 100 mls/hr IV QDAY [facility] Stop: 04/18/25 23:29 Last Admin: 04/12/25 02:09 Dose: Not Given Metronidazole (Flagyl 500 Mg Iv) 500 mg in 100 mls @ 200 mls/hr IV Q8HR [facility] Stop: 04/18/25 23:30 Last Admin: 04/12/25 06:15 Dose: Not Given Metronidazole (Flagyl 500 Mg Iv) 500 mg in 100 mls @ 200 mls/hr IV X1 ONE Stop: 04/12/25 00:14 Last Admin: 04/12/25 02:12 Dose: 200 mls/hr Vancomycin HCl 1,000 mg/ (Sodium Chloride) 250 mls @ 120 mls/hr IV X1 ONE Stop: 04/12/25 01:49 Last Admin: 04/12/25 02:23 Dose: 120 mls/hr Potassium Phosphate (Pot Phos 15 Mmol In Ns 250 Ml) 15 mmol in 250 mls @ 62.5 mls/hr IV Q4H [facility] Stop: 04/12/25 08:31 Last Admin: 04/12/25 02:08 Dose: Not Given Dextrose (D5w) 500 mls @ 75 mls/hr IV .Q6H40M [facility] Stop: 04/12/25 07:28 Last Admin: 04/12/25 02:11 Dose: Not Given Sodium Chloride (Ns) 250 mls @ 999 mls/hr IV .Q16M [facility] Stop: 04/12/25 01:54 Last Admin: 04/12/25 01:50 Dose: 999 mls/hr Cefepime HCl 1 gm/ Sodium (Chloride) 50 mls @ 100 mls/hr IV Q8HR [facility] Stop: 04/19/25 01:42 Last Admin: 04/13/25 14:10 Dose: 100 mls/hr Dopamine HCl/Dextrose (Intropin In D5w Ivpb) 400 mg in 250 mls @ 10.369 mls/hr IV .Q24H [facility]; Protocol Stop: 05/12/25 01:51 Last Titration: 04/12/25 09:00 Dose: 0 mcg/kg/min, 0 mls/hr Vancomycin/Sodium Chloride (Vancomycin/Ns 1 Gm Ivpb) 200 mls @ 120 mls/hr IV Q12H [facility]; Protocol Stop: 04/19/25 09:59 Last Admin: 04/12/25 22:15 Dose: 120 mls/hr Norepinephrine/Dextrose (Levophed In D5w 8mg/250ml) 8 mg in 250 mls @ 5.184 mls/hr IV .Q24H PRN; Protocol PRN Reason: PER PROTOCOL Stop: 05/12/25 07:58 Last Titration: 04/13/25 07:30 Dose: 0 mcg/kg/min, 0 mls/hr Dextrose (D5w) 1,000 mls @ 75 mls/hr IV .[id number] [facility] Stop: 04/13/25 08:34 Last Infusion: 04/12/25 23:00 Dose: 0 mls/hr Dextrose (D5w) 500 mls @ 500 mls/hr IV .Q1H [facility] Stop: 04/12/25 22:01 Last Admin: 04/12/25 21:36 Dose: 500 mls/hr Albumin Human (Albuminex 25% Ivpb) 25 gm in 100 mls @ 100 mls/hr IV X1 [facility] Stop: 04/12/25 22:11 Last Admin: 04/12/25 22:00 Dose: 100 mls/hr Dextrose (D5w) 1,000 mls @ 70 mls/hr IV .[id number] [facility] Stop: 04/13/25 12:42 Last Infusion: 04/13/25 04:36 Dose: 0 mls/hr Dextrose (D5w) 1,000 mls @ 125 mls/hr IV .Q8H [facility] Last Infusion: 04/13/25 05:00 Dose: 0 mls/hr Albumin Human (Albuminar-25 Ivpb) 12.5 gm in 50 mls @ 100 mls/hr IV QDAY [facility] Stop: 05/13/25 04:03 Last Infusion: 04/13/25 18:45 Dose: Infused Magnesium Sulfate (Magnesium Sulfate Ivpb) 2 gm in 50 mls @ 25 mls/hr IV X1 [facility] Stop: 04/13/25 10:26 Last Admin: 04/13/25 08:56 Dose: 25 mls/hr Vancomycin/Sodium Chloride (Vancomycin/Ns 750 Mg Ivpb) 750 mg in 150 mls @ 120 mls/hr IV Q12H [facility]; Protocol Stop: 04/20/25 09:59 Last Admin: 04/14/25 22:16 Dose: Not Given Ceftriaxone Sodium/Dextrose (Rocephin/D5w 1gm Iv Premix) 1 gm in 50 mls @ 100 mls/hr IV QDAY [facility] Stop: 04/20/25 18:07 Last Admin: 04/14/25 08:25 Dose: 100 mls/hr Dextrose (D5w) 1,000 mls @ 80 mls/hr IV .[id number] [facility] Stop: 04/14/25 19:44 Last Admin: 04/14/25 08:23 Dose: 80 mls/hr Potassium Phosphate (Pot Phos 15 Mmol In Ns 250 Ml) 15 mmol in 250 mls @ 62.5 mls/hr IV Q4H [facility] Stop: 04/14/25 22:12 Last Admin: 04/14/25 19:53 Dose: 62.5 mls/hr Dextrose (D5w) 1,000 mls @ 75 mls/hr IV .[id number] [facility] Stop: 04/15/25 20:19 Dextrose (D5w) 1,000 mls @ 60 mls/hr IV .[id number] [facility] Stop: 04/16/25 01:48 Last Admin: 04/15/25 10:08 Dose: Not Given Vancomycin/Sodium Chloride (Vancomycin/Ns 750 Mg Ivpb) 750 mg in 150 mls @ 120 mls/hr IV QDAY@1000 [facility] Stop: 04/22/25 10:14 Last Admin: 04/15/25 10:38 Dose: 120 mls/hr Insulin Human Lispro (Insulin Lispro (Admelog) 1 Unit/0.01 Ml Unit) 0 unit SC Q6HR [facility]; Protocol Stop: 05/12/25 05:59 Last Admin: 04/14/25 17:59 Dose: Not Given Ondansetron HCl (Ondansetron Inj 2 Mg/Ml Inj 2 Ml) 4 mg IVP X1 ONE; Protocol Stop: 04/11/25 19:49 Last Admin: 04/11/25 20:44 Dose: 4 mg Permethrin (Permethrin Cr 5% 60 Gm Tube) 0 gm TOP UD [facility] Stop: 05/14/25 10:44 Last Admin: 04/14/25 12:41 Dose: 1 applicatio Assessment & Plan Plan 69-year-old female with multiple comorbidities admitted for acute metabolic encephalopathy in the setting of severe hypothermia, electrolyte disturbances, and mangement of distributive shock. Neurology #Acute encephalopathy likely multifactorial, #Hypertonic hyperNatremia #Acute hypothermia #Hyperammonemia DDx: shock, electrolyte disturbances, hyperammonemia, hypothermia. Diagnostic Test: - Head CT showed no acute pathology. - Blood glucose 65. - Ammonia: 37. - Sodium 155. - Admission temperature 85.1F. Treatment Plan: - Further management per primary team, no specific ICU recommendations. #History of seizures Per history. On home Keppra 1g BID. Unknown when last seizure occurred. Treatment Plan: - Further management per primary team, no specific ICU recommendations. Cardiovascular #Distributive shock DDx: cardiogenic vs septic vs other distributive. Diagnostic Test: - Bedside echo 10/8 showed no septal wall hypokinesis, good ejection fraction, severe aortic stenosis with lack of motion from 1 aortic leaflet. - Echo 2023: Stage I diastolic dysfunction EF 60-65%, moderate AV stenosis velocity 3.1 and peak gradient 21. Thickening of the MV leaflet and mild MR and TR. - On admission, the patient required dopamine for hypotension, which was later escalated to Levophed for improved hemodynamic support in ICU. Treatment Plan: - Cardiology following, appreciate recs. - Further management per primary team, no specific ICU recommendations. #History of aortic stenosis #History of primary hypertension #Bradycardia Diagnostic Test: - Echo 2023: moderate AV stenosis velocity 3.1 and peak gradient. Treatment Plan: - Cardiology following, appreciate recs. - Further management per primary team, no specific ICU recommendations. Respiratory #Left base pneumonia, possible aspiration DDx: aspiration pneumonia vs Legionella vs valley fever Diagnostic Test: - CXR 04/11: Consider superimposed bilateral pneumonia. - CT chest/abd/pelvis 04/11: Left base pneumonia, consider aspiration pneumonia. Right upper lobe pulmonary nodules. Small bilateral pleural effusions. - CXR 04/13: Interval diffuse pneumonia left lung. - CXR 04/14: Persistent diffuse left lung pneumonia. - CXR 04/15: No improvement in diffuse significant left lung pneumonia. Treatment Plan: - Continue vancomycin (04/11- ), metronidazole (04/11, 04/14 - ), cefepime (04/14- ). - ICU team recommends that if the primary team proceeds with NG suctioning to help reduce the risk of further aspiration, platelets should be transfused before NG suctioning, given thrombocytopenia and bleeding risk. Additional recommendations include continuing antibiotic therapy for pneumonia. Should the patient's condition further deteriorate?necessitating intubation or bronchoscopy?ICU upgrade would be warranted at that time. #Right upper lobe pulmonary nodules #Bilateral pleural effusions, small #Multiple subcentimeter axillary lymph nodes Treatment Plan: - Further management per primary team, no specific ICU recommendations. GI and F/E/N #Gastritis #Proctitis Diagnostic Test: - CT chest/abd/pelvis 04/11: significant thickening of gastric mucosa, abundant stool in rectosigmoid but no bowel obstruction, rectal wall thickening, consider proctitis. Treatment Plan: - Further management per primary team, no specific ICU recommendations. Renal #Hypernatremia, improving #Hypokalemia, resolved #Hyperchloremia, improving #Hypobicarbinemia, improving #Hypophosphatemia, resolved #Hypomagnesemia, resolved #Hypocalcemia, resolved Treatment Plan: - Further management per primary team, no specific ICU recommendations. Heme #Severe thrombocytopenia Diagnostic Test: - Plt count over the course of this hospitalization: 34 --> 59 --> 43 --> 27 --> 23 --> 29 Treatment Plan: - Further management per primary team, no specific ICU recommendations. #Anemia of chronic disease #Normocytic normochronic anemia Treatment Plan: - Further management per primary team, no specific ICU recommendations. Endo #NIDDM2 Diagnostic Test: - Hemoglobin A1c 8.1. Treatment Plan: - Further management per primary team, no specific ICU recommendations. MSK #Hx of L diabetic foot tarsal amputation #Hx of osteomyelitis of R foot distal fourth metatarsal and proximal phalanx fourth digit #Hx of R big toe abscess s/p I&D of R big toe and 2nd toe amputation (12/04/24) ID #Diffuse excoriations #Tinea capitis Treatment Plan: - Further management per primary team, no specific ICU recommendations. Health Maintenance DVT prophylaxis: Levenox held for severe thrombocytopenia GI prophylaxis: IV pantoprazole 40 mg QD Diet: Blenderized Puree, PPN Juan: present Lines: Peripherals Drips: none Vent: not on MV CODE STATUS: FULL CODE Patient discussed with my senior resident Dr. Gama and attending, Dr. Ayoub. Gaudencio Moran DO, PGY 1
[2025-04-15 14:02] LABS: LDH (Lactate Dehydrogenase) 277 U/L (120-246)
--- NOTE | 2025-04-15 14:33 | EVENTNT_ITS ---
Documentation for date of: 04/15/25 Event Note Event Note: At approximately 1400 on 04/15/25, internal medicine team spoke with patient's son (medical decision maker) and other family today regarding the patient's medical condition. Family members were informed about the patient's deter iorating condition, including requirement of 3 antibiotics to treat her pneumonia, her altered mentation, and her hypothermia requiring Laverne hugger and increased room temperature. We also explained that her platelet counts were critically low, and that this was preventing our team from performing deep suction for pneumonia secretions due to bleeding risk. Son expressed that he had been hesitant about administering scabies treatment previously due to previous issue with char/getting scabies at [facility], with reactions to topical medications. Son also explained that he had a poor experience with ER during on of the patient's breakthrough seizures previously. When asked about patient's baseline mentation, they state that she is alert, but has significant memory loss. It was explained to them that the patient's condition is still guarded and that she is likely aspirating secretions and cannot clear them due to her current physical and mental state.
--- NOTE | 2025-04-15 14:34 | XR_ITS ---
Examination: Abdomen sonogram, Limited Date and time of exam: April 15, 2025, 1516 hours INDICATIONS: Elevated liver function tests on laboratory examination today Technique: Real-time alejandro scale transabdominal sonographic images of the upper abdomen obtained. Findings: Normal gallbladder. Normal common bile duct 0.2 cm Pancreatic head 2.0 cm Liver 16.5 cm no focal liver lesions Partial visualization of right pleural fluid Normal hepatopetal portal venous flow Patent IVC IMPRESSION: Normal gallbladder Normal common bile duct Mild hepatomegaly
[2025-04-15 14:54] LABS: Immature Reticulocyte Fraction 10.1 % (3.0-15.9); Reticulocyte % (Auto) 0.8 % (0.5-1.5); Reticulocyte Absolute Auto 27.4 Biln/L (25.0-75.0); Reticulocyte Hgb Content 33.5 pg (28.0-35.0)
[2025-04-15] MEDS: MIN OIL/PET,WHITE (Eucerin) CR 16 OZ BTL TOP (15:00)
--- NOTE | 2025-04-15 15:30 | PC.NURSE ---
Attempted to insert NGT x2. Unable. Per Doctor Gunn, hold for now.
--- NOTE | 2025-04-15 16:02 | ESPR_ITS ---
<Statement entered by Becky Matos MD - 04/16/25 19:08> I personally evaluate the patient with resident physician Dr. Nic CELESTIN cardiology evaluation patient is quite stable overall not have any further arrhythmia chest pain or shortness of agree with treatment plan recommendation is documented will continue to monitor patient closely on telemetry Documentation for date of: 04/15/25 Subjective Subjective Interval history: No acute overnight events. Primary team spoke to family regarding patient's condition and prognosis, informing them that it remains guarded at this time. Otherwise, she was seen at bedside and continues to be nonverbal. Vital signs stable with pulse in 60s and sinus, normothermic, and saturating 97% on 2 L NC. CBC shows stable hemoglobin, stable thrombocytopenia. CHEM panel shows hypotonic hyponatremia, stable renal function. Repeat CXR obtained and showed no improvement in diffuse left-sided pneumonia. Continues to be on cefepime, vancomycin, Flagyl. Exam Vital Signs Temp Pulse Resp BP Pulse Ox O2 Del Method O2 Flow Rate 96.8 F 66 25 H 136/70 H 97 Nasal Cannula 2 04/15/25 12:00 04/15/25 12:00 04/15/25 12:00 04/15/25 12:00 04/15/25 12:00 04/15/25 12:00 04/15/25 12:00 FiO2 77 04/15/25 06:48 Narrative Exam General: asleep, does not wake up to voice, no acute distress HEENT: NC/AT, mucous membranes moist, bilateral sclera anicteric Cardiovascular: systolic murmur, regular rate and rhythm, S1/S2 present Pulmonary: clear to auscultation bilaterally, no rales/rhonchi/wheezes Abdominal: soft, non-tender, non-distended, no rebound/guarding, normal bowel sounds present Musculoskeletal: left lower extremity transmetatarsal amputation, no peripheral edema Skin: warm and dry, intact, no rashes Objective Labs 04/15/25 05:40 04/15/25 05:40 Labs: Laboratory Results - last 24 hr 04/11/25 04/14/25 04/14/25 21:05 16:57 18:40 WBC RBC Hgb Hct MCV MCH MCHC RDW Std Deviation Plt Count Neut % (Auto) Lymph % (Auto) [place] % (Auto) Eos % (Auto) Baso % (Auto) Neut # (Auto) Lymph # (Auto) [place] # (Auto) Eos # (Auto) Baso # (Auto) Immature Gran # (Auto) Absolute Nucleated RBC Immature Gran % Nucleated RBC % Puncture Site ABG pH ABG pCO2 ABG pO2 ABG HCO3 ABG O2 Saturation ABG Base Excess FiO2 Sodium 146 H Potassium Chloride Carbon Dioxide Anion Gap BUN Creatinine Estim Creat Clear Calc eGFR BUN/Creatinine Ratio Glucose Calculated Osmolality Lactic Acid 1.6 Calcium Corrected Calcium Phosphorus Magnesium Total Bilirubin AST ALT Alkaline Phosphatase Lactate Dehydrogenase Total Protein Albumin Globulin Albumin/Globulin Ratio Vancomycin Trough Random Vancomycin Misc Test Result Crossmatch See Detail 04/14/25 04/14/25 04/15/25 20:58 23:37 01:19 WBC RBC Hgb Hct MCV MCH MCHC RDW Std Deviation Plt Count Neut % (Auto) Lymph % (Auto) [place] % (Auto) Eos % (Auto) Baso % (Auto) Neut # (Auto) Lymph # (Auto) [place] # (Auto) Eos # (Auto) Baso # (Auto) Immature Gran # (Auto) Absolute Nucleated RBC Immature Gran % Nucleated RBC % Puncture Site Right Radial ABG pH 7.47 H ABG pCO2 30 L ABG pO2 61 L ABG HCO3 21 ABG O2 Saturation 94 ABG Base Excess -2 FiO2 21 Sodium 148 H Potassium 4.5 D Chloride 115 H Carbon Dioxide 21.1 Anion Gap 12 BUN 36 H Creatinine 0.7 Estim Creat Clear Calc 69.0 eGFR > 60 BUN/Creatinine Ratio 51 H Glucose 120 H D Calculated Osmolality 303 H Lactic Acid 1.1 Calcium 8.9 Corrected Calcium Phosphorus Magnesium Total Bilirubin AST ALT Alkaline Phosphatase Lactate Dehydrogenase Total Protein Albumin Globulin Albumin/Globulin Ratio Vancomycin Trough 27.8 H* Random Vancomycin Misc Test Result Crossmatch 04/15/25 04/15/25 04/15/25 05:40 05:40 11:20 WBC 7.0 RBC 3.57 L Hgb 9.5 L Hct 28.3 L MCV 79 L MCH 26.6 MCHC 33.6 RDW Std Deviation 53.3 H Plt Count 29 L* D Neut % (Auto) 83 H Lymph % (Auto) 8 L [place] % (Auto) 4 Eos % (Auto) 4 Baso % (Auto) 0 Neut # (Auto) 5.9 Lymph # (Auto) 0.5 L [place] # (Auto) 0.3 Eos # (Auto) 0.3 Baso # (Auto) 0.0 Immature Gran # (Auto) 0.04 H Absolute Nucleated RBC 0.03 H Immature Gran % 1 H Nucleated RBC % 0 Puncture Site ABG pH ABG pCO2 ABG pO2 ABG HCO3 ABG O2 Saturation ABG Base Excess FiO2 Sodium 148 H Potassium 4.6 Chloride 115 H Carbon Dioxide 21.5 Anion Gap 12 BUN 35 H Creatinine 0.8 Estim Creat Clear Calc 60.4 L eGFR > 60 BUN/Creatinine Ratio 44 H Glucose 182 H D Calculated Osmolality 307 H Lactic Acid Calcium 8.4 Corrected Calcium 9.0 Phosphorus 4.7 Magnesium 2.3 Total Bilirubin 0.7 AST 48 H ALT 49 Alkaline Phosphatase 117 H D Lactate Dehydrogenase 277 H Total Protein 5.2 L Albumin 3.3 L Globulin 1.9 L Albumin/Globulin Ratio 1.7 Vancomycin Trough Random Vancomycin Cancelled 24.4 Misc Test Result Platelets confirmed Crossmatch ABG Interpretation ABG results: 04/11/25 04/14/25 21:53 23:37 ABG pH 7.29 L 7.47 H ABG pCO2 53 H 30 L ABG pO2 90 61 L ABG HCO3 25 21 ABG O2 Saturation 97 94 ABG Base Excess -2 -2 Quality Measures Quality Measures VTE prophylaxis Advance care planning discussed with:: patient Assessment & Plan Assessment Current Active Medications: Generic Name Dose Route Start Last Admin Trade Name Freq PRN Reason Stop Dose Admin Dextrose 50 ml 04/12/25 00:08 04/12/25 12:20 Dextrose 50%-Water Inj 50 Ml Syringe IV 05/12/25 00:07 50 ml Q15MIN PRN Administration BG <50 OR BG <70 & pt unresponsive Enoxaparin Sodium 40 mg 04/12/25 21:00 04/13/25 08:52 Enoxaparin Sod Inj 40 Mg/0.4 Ml Syringe SC 04/26/25 20:59 40 mg On Hold: 04/14/25 07:01 QDAY HARPER Administration Glucagon 1 mg 04/12/25 00:08 Glucagon Inj 1 Mg Vial IM Q15MIN PRN BG <70, and no IV access Metronidazole 500 mg in 100 mls @ 200 mls/hr 04/14/25 08:47 04/15/25 15:01 Flagyl 500 Mg Iv IV 04/21/25 08:46 200 mls/hr Q8HR HARPER Administration Cefepime HCl 2 gm/ Sodium 50 mls @ 100 mls/hr 04/14/25 15:11 04/15/25 15:00 Chloride IV 04/21/25 15:10 100 mls/hr Q8HR HARPER Administration Insulin Human Lispro 0 unit 04/14/25 21:00 04/15/25 11:57 Insulin Lispro (Admelog) 1 Unit/0.01 Ml Unit SC 05/14/25 20:59 Not Given ACHS HARPER Protocol Levetiracetam 1,000 mg 04/12/25 21:00 04/15/25 09:26 Levetiracetam Inj 100 Mg/Ml Vial 5ml IVP 05/12/25 20:59 1,000 mg Q12HR HARPER Administration Multi-Ingredient Ointment 0 oz 04/12/25 12:30 04/15/25 15:00 Min Oil/Pet,White (Eucerin) Cr 16 Oz Btl TOP 05/12/25 12:29 1 appln DAILY HARPER Administration Ondansetron HCl 4 mg 04/11/25 22:23 Ondansetron Inj 2 Mg/Ml Inj 2 Ml IVP 05/11/25 22:22 Q6H PRN NAUSEA OR VOMITING Protocol Pantoprazole Sodium 40 mg 04/12/25 10:30 04/15/25 09:26 Pantoprazole Inj 40 Mg Vial IVP 05/12/25 10:29 40 mg QDAY HARPER Administration Pharmacy Consult 1 each 04/12/25 09:00 Vancomycin Pharmacy To Dose 1 Each Each IV 05/12/25 08:59 QDAY PRN RX Sodium Chloride 4 ml 04/15/25 13:00 04/15/25 11:40 Sodium Cl Rt Mere 3% 4 Ml Nebu (Non-Formulary) INH 05/15/25 12:59 4 ml Q6HRRT HARPER Administration Terbinafine HCl 2 gm 04/11/25 23:00 04/15/25 15:01 Terbinafine Hcl Cr 1% 12 Gm Tube TOP 05/11/25 22:59 2 gm TID HARPER Administration Plan 69-year-old female with history of CAD s/p CABG and multiple PCI, moderate aortic stenosis, essential hypertension, hyperlipidemia, CVA/stroke, seizure disorder on Keppra, baseline dementia and slurred speech, history of left transmetatarsal amputation with questionable PAD, history of fall with displaced intra-articular fracture of the left hip status post open reduction internal fixation on 06/2024 who presented with worsening altered mental status. Originally admitted to ICU for acute metabolic encephalopathy in setting of hypertonic hyponatremia and acute hypothermia and since downgraded to floors. Cardiology consulted due to concern for cardiogenic shock given history of CAD and moderate aortic stenosis. #Distributive shock, likely distributive/septic, unlikely cardiogenic, resolved #Acute hypothermia, resolved #Bradycardia secondary to first-degree heart block, improving #History of aortic stenosis, moderate Presented with acute encephalopathy likely secondary to shock with concerns for cardiogenic shock given history of CAD and . Unlikely cardiogenic shock given patient only has moderate (as evidenced by systolic murmur on exam) with adequate flow and more likely distributive/septic as evidenced by severe hyperthermia secondary to left lower lobe pneumonia that may have contributed/caused her bradycardia as it improved with rewarming with Laverne hugger. Additionally, patient may not be a candidate for TAVR given multiple comorbidities along with severe protein/calorie malnutrition and anticipate will not have good outcomes as she would not be able to participate in rehabilitation. May reconsider if she improves clinically over the next few months. TSH normal, A1c 8.1%, lipid profile showed total cholesterol of 123, HDL of 48 and LDL of 53. TTE 06/23/2024 showed normal LV size and function. Mild LVH. S1DD. EF 60-65%. Normal RV size and function. Moderate AV stenosis, mean gradient 21mmHg, Vmax 3.1 m/s. Mildly thickened MVL. Mild MR, AI. Trace TR. TTE 04/12/2025 showed normal LV size and function. Mild LVH. S1DD. EF 60-65%. Normal RV size and function. RVSP 40 mmHg with RAP 3. Moderate AV stenosis, mean gradient 31 mmHg, Vmax 3.7 to 3.8m/s. MELE 1 cm2. Mildly thickened MV leaflets. Mild MR, AI and TR. Increased velocities compared to study on 06/24/24. EKG on 04/14 shows sinus bradycardia with first-degree AV block, PA 234, QTc 439. ? Continue to monitor blood pressure as has been weaned off of Levophed and dopamine ? Blood pressure now within normal limits as she has remained normothermic ? Laverne hugger as needed if she becomes hypothermic again #History of CAD status post CABG with history of multiple PCI ? Continue home aspirin and Plavix if stenting done within last year and if no concerns for bleed ? Keep hemoglobin > 8 given cardiac history #History of CVA ? Continue home aspirin 81 mg #History of hypertension ? Hold home antihypertensives and resume per primary team discretion #Acute hypokalemia, resolved #Hypomagnesemia, resolved #Hypophosphatemia, resolved #Hypocalcemia, resolved Presented with potassium of 2.4 and magnesium 1.1. Overnight given total potassium chloride 40 mEq, magnesium 2 g, calcium gluconate x1. 04/12/2025: Potassium improved to 4.7 at midnight. Calcium improved to 8.7, phosphorus 2.6, magnesium 2.3. ? Potassium > 4 and magnesium > 2 #Acute on chronic normocytic anemia #Protein calorie malnutrition Patient presented with altered mental status and acute metabolic encephalopathy, unclear etiology. Appears to have poor oral intake as the patient was also noted to have severely low albumin at 1.5 as well as total protein at 2.5. Hemoglobin 7.6. In setting of acute gastritis and severe malnutrition. BMI 19.6. ? Workup per primary team #[id number] type 2 diabetes #Hx of LT foot metatrasal amputation and RT foot 2nd digit amputation A1c 8.1. Home meds include metformin 1000 mg twice daily. ? SSI per primary team #Acute encephalopathy in setting of #Hypotonic hyponatremia, severe #Left base PNA, possibly aspiration #Right upper lobe pulmonary nodules #Bilateral pleural effusions, small #Pancytopenia #Proctitis, likely acute #Seizure disorder #Hyperlipidemia #Constipation Vs. bowel ileus #Tinea Capitis #Nasal lesion, possibly basal cell carcinoma #Axillary lymphadenopathy #Baseline dementia #History of questionable PAD with transmetatarsal amputation and right toe amputation #COPD ? Continue management per primary team ----- Plan discussed with attending physician Dr. Carlo Celestin MD PGY-2 Internal Medicine
[2025-04-15 16:04] LABS: Cocci Serology, IgM Negative (Negative)
--- NOTE | 2025-04-15 16:19 | PC.SS ---
Rounding note: Continue antibiotics, discharging home when medically.
[2025-04-15] MEDS: THIAMINE INJ 100 MG/ML VIAL 2 ML IVP (18:09)
[2025-04-15] MEDS: MULTIVITAMIN INJ 10 ML in AMINO ACIDS 4.25 %/D5W 2,000 ML 40 ML IV (18:09)
[2025-04-15 18:29] LABS: HIV (1&2) Antibody Rapid Non-Reactive
[2025-04-16] VITALS (12 sets, daily range): BP systolic 132–176; BP diastolic 67–92; PULSE 23–83; RESP 16–98; TEMP 35.3–36.4; O2SAT 93–100
[2025-04-16] MEDS: SODIUM CL RT SOL 3% 4 ML NEBU (NON-FORMULARY) INH ×4 (01:05→18:24)
--- NOTE | 2025-04-16 01:35 | PC.NURSE ---
notified MD of patients blood pressure 176/92 with heart rate of 50 bpm. patient has no PRN for HTN. patient was placed on elliot hugger again for tempurater of 96.2. MD to place orders
[2025-04-16] MEDS: hydrALAZINE INJ 20 MG/ML VIAL 5 MG IVP (01:42)
[2025-04-16] MEDS: CEFEPIME INJ 2 GM in SODIUM CHLORIDE 0.9% (Popper) 50 ML IV ×3 (05:23→21:47)
[2025-04-16] MEDS: TERBINAFINE HCL 1% 2 GM TOP ×3 (05:23→21:48)
[2025-04-16] MEDS: metroNIDAZOLE/NS 500 MG IVPB 500 MG/100 ML BAG 200 MG IV ×3 (05:24→22:23)
[2025-04-16 06:08] LABS: Basophils # (Auto) 0.0 Thou/mm3 (0.0-0.2); Basophils % (Auto) 1 % (0-2.5); Eosinophils # (Auto) 0.5 Thou/mm3 (0.0-0.5); Eosinophils % (Auto) 8 % (0-10); Hematocrit 28.7 % (36.0-46.0); Hemoglobin 9.6 g/dL (12.0-16.0); Immature Granulocytes Auto 0.05 Thou/mm3 (0.00-0.00); Lymphocytes # (Auto) 0.6 Thou/mm3 (1.0-4.8); Lymphocytes % (Auto) 9 % (10-50); Mean Corpuscular HGB Conc 33.4 g/dl (31.0-37.0); Mean Corpuscular Hemoglobin 26.6 pg (25.0-35.0); Mean Corpuscular Volume 80 fL (80-100); Monocytes # (Auto) 0.3 Thou/mm3 (0.0-0.8); Monocytes % (Auto) 4 % (0-12); Neutrophils # (Auto) 5.5 Thou/mm3 (1.8-7.7); Neutrophils % (Auto) 78 % (37-80); Nucleated Red Blood Cell # 0.00 Thou/mm3 (0.00-0.00); Nucleated Red Blood Cell % 0 /100 WBC (0); RDW Standard Deviation 53.1 fL (36.4-46.3); Red Blood Count 3.61 Miln/mm3 (4.00-5.20); White Blood Count 7.0 Thou/mm3 (3.6-11.0)
[2025-04-16 06:30] LABS: Platelet Count 31 Thou/mm3 (140-440)
[2025-04-16 06:50] LABS: Alanine Aminotransferase 37 U/L (10-49); Albumin, Serum 3.3 gm/dL (3.4-4.8); Albumin/Globulin Ratio 1.7 (1.2-2.2); Alkaline Phosphatase 106 U/L (46-116); Anion Gap 13 (7-16); Aspartate Amino Transferase 24 U/L (0-34); BUN/Creatinine Ratio 53 Ratio (12-20); Bilirubin,Total 0.9 mg/dL (0.3-1.2); Blood Urea Nitrogen 37 mg/dL (9-23); Calcium 8.7 mg/dL (8.3-10.6); Calcium (Corrected) 9.3 mg/dL (8.5-10.1); Carbon Dioxide 21.0 mMol/L (20.0-31.0); Chloride 118 mMol/L (98-107); Creatinine (Component) 0.7 mg/dL (0.6-1.3); Estimated Creatinine Clearance 69.0 mL/min (>60); Globulin 2.0 gm/dL (2.3-3.5); Glucose 157 mg/dL (74-106); Osmolality,Calculated 313 (275-295); Potassium 4.1 mMol/L (3.4-5.1); Sodium 152 mMol/L (136-145); Total Protein 5.3 gm/dL (5.7-8.2); eGFR > 60 See Note
[2025-04-16 07:51] LABS: Slide Review Platelets confirmed
[2025-04-16 07:56] LABS: Magnesium 2.4 mg/dL (1.6-2.6); Phosphorous 2.9 mg/dL (2.4-5.1)
[2025-04-16 09:29] LABS: Vancomycin,Trough 20.0 mcg/mL (5.0-10.0)
[2025-04-16] MEDS: levETIRAcetam INJ 100 MG/ML VIAL 5ML 1000 MG IVP ×2 (09:47→21:47)
--- NOTE | 2025-04-16 10:20 | XR_ITS ---
Examination: Duplex scan of the upper extremity, unilateral right Date and time of exam: April 16, 2025, 1233 hours INDICATIONS: Onset right arm swelling today Technique: Duplex scan of the extremity veins using B-mode/grayscale imaging and Doppler spectral analysis and color flow Attention is directed to internal echogenicity, compression and augmentation involving these veins, color flow assessment, spectral analysis Findings: Major deep venous structures in the extremity demonstrate normal course and caliber. There is no evidence of deep vein thrombosis. Normal color flow and spectral analysis Impression: Negative for DVT..
--- NOTE | 2025-04-16 10:22 | ESPR_ITS ---
Documentation for date of: 04/16/25 Subjective Subjective Interval history: Patient was seen and assessed at bedside. Confused this morning, eyes open and tracking but not responsive to verbal stimuli. On exam, patient had right upper arm swelling, no redness or tenderness, likely fluid overload from PPN administered in that arm. No lower extremity or LUE edema noted. Saturating well on room air. No diuresis recommended as patient is hypovolemic. Temperature recorded 95.5 Fahrenheit (rectal) this morning, however on exam patient felt warm. Overnight BP 176/89, given hydralazine IV 5mg x1, improved to 150s. BP 132/77 this AM. HR 50s overnight, improved to 60s in the AM. Sinus bradycardia with occasional PVCs on telemetry, continues to have prolonged OR interval. As previously noted, patient is not candidate for pacemaker placement. Sodium increased to 152, recommend adjusting sodium content in PPN if any. Potassium 4.0, magnesium 2.4, creatinine 0.7. Free T40.58, TSH 2.73. Exam Vital Signs Temp Pulse Resp BP Pulse Ox O2 Del Method O2 Flow Rate 95.5 F L 61 30 H 132/77 H 99 Nasal Cannula 2 04/16/25 08:00 04/16/25 08:00 04/16/25 08:00 04/16/25 08:00 04/16/25 08:00 04/16/25 08:00 04/16/25 08:00 FiO2 62 04/16/25 07:43 Narrative Exam Physical Exam General: Awake and in no acute distress. Not conversational. Very confused. Unable to answer questions appropriately. Cachectic. HEENT: Normocephalic, atraumatic, mucous membranes dry. Upper dentures, missing bottom teeth. Heart: Regular rate and rhythm, normal S1 and S2, 4/5 systolic murmur radiating to carotids. Lungs: Clear to auscultation with no wheezing or crackles. Abdomen: Soft, nondistended, nontender, positive bowel sounds. No guarding or rebound tenderness. Neurologic: Alert and oriented x0. Unable to assess as patient is noncompliant with commands. Extremities: No edema. Left foot transmetatarsal amputation. Right foot second digit amputation. Skin: No rash or ecchymoses. Tinea capitis at frontal scalp. Petechial lesions bilateral lower extremities. Objective Labs 04/17/25 07:16 04/17/25 05:34 Labs: Laboratory Results - last 24 hr 04/15/25 04/15/25 04/15/25 05:40 09:10 11:20 WBC RBC Hgb Hct MCV MCH MCHC RDW Std Deviation Plt Count Neut % (Auto) Lymph % (Auto) [place] % (Auto) Eos % (Auto) Baso % (Auto) Neut # (Auto) Lymph # (Auto) [place] # (Auto) Eos # (Auto) Baso # (Auto) Immature Gran # (Auto) Absolute Nucleated RBC Immature Gran % Nucleated RBC % Retic Count (auto) 0.8 Absolute Retic 27.4 Immature Retic Fraction 10.1 Retic Hgb Content CHr 33.5 Sodium Potassium Chloride Carbon Dioxide Anion Gap BUN Creatinine Estim Creat Clear Calc eGFR BUN/Creatinine Ratio Glucose Calculated Osmolality Calcium Corrected Calcium Phosphorus Magnesium Total Bilirubin AST ALT Alkaline Phosphatase Lactate Dehydrogenase 277 H Total Protein Albumin Globulin Albumin/Globulin Ratio Vancomycin Trough Random Vancomycin 24.4 Coccidioides IgM Ab Negative HIV 1&2 Antibody Rapid Non-Reactive Misc Test Result 04/16/25 04/16/25 04:40 08:15 WBC 7.0 RBC 3.61 L Hgb 9.6 L Hct 28.7 L MCV 80 MCH 26.6 MCHC 33.4 RDW Std Deviation 53.1 H Plt Count 31 L Neut % (Auto) 78 Lymph % (Auto) 9 L [place] % (Auto) 4 Eos % (Auto) 8 Baso % (Auto) 1 Neut # (Auto) 5.5 Lymph # (Auto) 0.6 L [place] # (Auto) 0.3 Eos # (Auto) 0.5 Baso # (Auto) 0.0 Immature Gran # (Auto) 0.05 H Absolute Nucleated RBC 0.00 Immature Gran % 1 H Nucleated RBC % 0 Retic Count (auto) Absolute Retic Immature Retic Fraction Retic Hgb Content CHr Sodium 152 H Potassium 4.1 D Chloride 118 H Carbon Dioxide 21.0 Anion Gap 13 BUN 37 H Creatinine 0.7 Estim Creat Clear Calc 69.0 eGFR > 60 BUN/Creatinine Ratio 53 H Glucose 157 H Calculated Osmolality 313 H Calcium 8.7 Corrected Calcium 9.3 Phosphorus 2.9 Magnesium 2.4 Total Bilirubin 0.9 AST 24 ALT 37 Alkaline Phosphatase 106 Lactate Dehydrogenase Total Protein 5.3 L Albumin 3.3 L Globulin 2.0 L Albumin/Globulin Ratio 1.7 Vancomycin Trough 20.0 H Random Vancomycin Coccidioides IgM Ab HIV 1&2 Antibody Rapid Misc Test Result Platelets confirmed ABG Interpretation ABG results: 04/11/25 04/14/25 21:53 23:37 ABG pH 7.29 L 7.47 H ABG pCO2 53 H 30 L ABG pO2 90 61 L ABG HCO3 25 21 ABG O2 Saturation 97 94 ABG Base Excess -2 -2 Quality Measures Quality Measures VTE prophylaxis Advance care planning discussed with:: legal surragate Assessment & Plan Assessment Current Active Medications: Generic Name Dose Route Start Last Admin Trade Name Freq PRN Reason Stop Dose Admin Dextrose 50 ml 04/12/25 00:08 04/12/25 12:20 Dextrose 50%-Water Inj 50 Ml Syringe IV 05/12/25 00:07 50 ml Q15MIN PRN Administration BG <50 OR BG <70 & pt unresponsive Enoxaparin Sodium 40 mg 04/12/25 21:00 04/13/25 08:52 Enoxaparin Sod Inj 40 Mg/0.4 Ml Syringe SC 04/26/25 20:59 40 mg On Hold: 04/14/25 07:01 QDAY HARPER Administration Glucagon 1 mg 04/12/25 00:08 Glucagon Inj 1 Mg Vial IM Q15MIN PRN BG <70, and no IV access Metronidazole 500 mg in 100 mls @ 200 mls/hr 04/14/25 08:47 04/16/25 05:24 Flagyl 500 Mg Iv IV 04/21/25 08:46 200 mls/hr Q8HR HARPER Administration Cefepime HCl 2 gm/ Sodium 50 mls @ 100 mls/hr 04/14/25 15:11 04/16/25 05:23 Chloride IV 04/21/25 15:10 100 mls/hr Q8HR HARPER Administration Multivitamins/Minerals 10 ml/ 2,010 mls @ 40 mls/hr 04/15/25 18:00 04/15/25 18:09 Amino Acids IV 04/16/25 17:59 40 mls/hr .Q24H ONE Administration Multivitamins/Minerals 10 ml/ 2,015 mls @ 83 mls/hr 04/16/25 18:00 Potassium Phosphate 15 mmol/ IV 04/17/25 17:59 Amino Acids .Q24H ONE Vancomycin/Sodium Chloride 100 mls @ 120 mls/hr 04/16/25 10:00 Vancomycin/Ns 500 Mg Ivpb IV 04/23/25 09:59 QDAY@1000 [facility] Insulin Human Lispro 0 unit 04/14/25 21:00 04/16/25 07:54 Insulin Lispro (Admelog) 1 Unit/0.01 Ml Unit SC 05/14/25 20:59 Not Given ACHS HARPER Protocol Levetiracetam 1,000 mg 04/12/25 21:00 04/16/25 09:47 Levetiracetam Inj 100 Mg/Ml Vial 5ml IVP 05/12/25 20:59 1,000 mg Q12HR HARPER Administration Multi-Ingredient Ointment 0 oz 04/12/25 12:30 04/15/25 15:00 Min Oil/Pet,White (Eucerin) Cr 16 Oz Btl TOP 05/12/25 12:29 1 appln DAILY HARPER Administration Ondansetron HCl 4 mg 04/11/25 22:23 Ondansetron Inj 2 Mg/Ml Inj 2 Ml IVP 05/11/25 22:22 Q6H PRN NAUSEA OR VOMITING Protocol Pantoprazole Sodium 40 mg 04/12/25 10:30 04/16/25 09:46 Pantoprazole Inj 40 Mg Vial IVP 05/12/25 10:29 40 mg QDAY HARPER Administration Pharmacy Consult 1 each 04/12/25 09:00 Vancomycin Pharmacy To Dose 1 Each Each IV 05/12/25 08:59 QDAY PRN RX Sodium Chloride 4 ml 04/15/25 13:00 04/16/25 07:43 Sodium Cl Rt Mere 3% 4 Ml Nebu (Non-Formulary) INH 05/15/25 12:59 4 ml Q6HRRT HARPER Administration Terbinafine HCl 2 gm 04/11/25 23:00 04/16/25 05:23 Terbinafine Hcl Cr 1% 12 Gm Tube TOP 05/11/25 22:59 2 gm TID HARPER Administration Plan Patient is a 69-year-old female with past medical history of CAD s/p CABG with history of previous multiple PCI, moderate aortic stenosis, CVA/stroke, seizure disorder with Keppra, essential hypertension, hyperlipidemia, baseline dementia, slurred speech, history of left transmetatarsal amputation with questionable PAD, history of fall with displaced intra-articular fracture of the left hip status post open reduction internal fixation in June 2024 was brought in to the emergency department of worsening altered mental status. Admitted to ICU for acute metabolic encephalopathy in setting of hypertonic hyponatremia and acute hypothermia. Cardiology consulted due to concern for cardiogenic shock given history of CAD and moderate aortic stenosis. #Distributive shock, likely septic or distributive, unlikely cardiogenic #Acute hypothermia #Bradycardia secondary to first-degree heart block #History of aortic stenosis, moderate #History of hypertension #History CVA #History of CAD status post CABG with history of previous multiple PCI Home meds include lisinopril 10 mg daily, aspirin 81 mg daily, Plavix 75 mg daily. On physical exam, auscultated 4/5 ejection systolic murmur radiating to carotids. TSH were normal, A1c was 8.1% in lipid profile showed total cholesterol of 123, HDL of 48 and LDL of 53. Chest x-ray with questionable left-sided pneumonia secondary to aspiration. CT chest abdominal with altered showed small bilateral pleural effusions along with significant thickening of gastric mucosa and some constipation. TTE 06/23/2024 showed normal LV size and function. Mild LVH. Stage I diastolic dysfunction. Estimated EF 60-65%. Normal RV size and function. Moderate AV stenosis, mean gradient 21mmHg, vmax 3.1 m/s. Mild thicken MVL. Midl MR, AI. Trace TR. Bradycardia likely secondary to severe hypothermia. Heart rate now improved to 70s to 80s with conservative treatment of hypothermia. TTE 04/12/25 showed normal left ventricular size and function. Mild LVH. Stage I diastolic dysfunction. Estimated EF 60-65%. Normal RV size and function. RVSP 40 mmHg with RAP 3. Moderate AV stenosis, mean gradient 31 mmHg, vmax 3.7 to 3.8m/s. MELE 1 sq cm. Mild thicken MV leaflets. Mild MR, AI and TR. Compared to prior study of 06/24/24- increased velocities. EKG 04/14 shows sinus bradycardia with first-degree AV block, OR 234, QTc 439. Plan: - Unlikely cardiogenic shock as patient only has moderate aortic stenosis with adequate flow. Likely distributive shock secondary to severe hypothermia or possible sepsis with underlying left lower lobe pneumonia. Patient was bradycardic along with hypotensive on admission which improved with rewarming with a Laverne hugger. - Even if the patient has severe aortic stenosis it is unlikely the patient will be a candidate for TAVR given his multiple comorbidities along with her severe protein calorie malnutrition and will not have good outcome as she is unable to do any kind of rehab. Can consider TAVR for her eventually if her overall clinical status improves over the next few months - Heart rate improving with Laverne hugger. As above, EKG shows first-degree AV block however patient remains asymptomatic with no long pauses noted and is therefore not a candidate for pacemaker placement at this time. ? Stable off Levophed and dopamine. Monitor BP. #Hypernatremia #Acute hypokalemia, resolved #Hypomagnesemia # Hypophosphatemia ##Hypocalcemia, resolved Presented with potassium of 2.4 and magnesium 1.1. Overnight given total potassium chloride 40 mEq, magnesium 2 g, calcium gluconate x1. 04/12/2025: Potassium improved to 4.7 at midnight. Calcium improved to 8.7, phosphorus 2.6, magnesium 2.3. ?Keep potassium above 4 and magnesium above 2 - Started on PPN, adjust sodium content if any. #Acute on chronic normocytic anemia #Protein calorie malnutrition Patient presented with altered mental status and acute metabolic encephalopathy, unclear etiology. Appears to have poor oral intake as the patient was also noted to have severely low albumin at 1.5 as well as total protein at 2.5. Hemoglobin 7.6. In setting of acute gastritis and severe malnutrition. BMI 19.6. ? PPN as above - Workup per primary team #[id number] type 2 diabetes #Hx of LT foot metatrasal amputation and RT foot 2nd digit amputation A1c 8.1. Home meds include metformin 1000 mg twice daily. ?SSI per primary team #Acute encephalopathy in setting of #Hypotonic hyponatremia, severe #Left base PNA, possibly aspiration #Right upper lobe pulmonary nodules #Bilateral pleural effusions, small #Pancytopenia #Proctitis, likely acute #Seizure disorder #Hyperlipidemia #Constipation Vs. bowel ileus #Tinea Capitis #Nasal lesion, possibly basal cell carcinoma #Axillary lymphadenopathy #Baseline dementia #History of questionable PAD with transmetatarsal amputation and right toe amputation #COPD Thank you for your consultation, please do not hesitate to reach out if you have any question or concern Patient plan of care was discussed with the attending physician, Dr. Castellanos. Kenisha Marsh, PGY-1 Attending Provider Attestation/Addendum I have personally seen and examined the patient separately on the above date of service and discussed the plan of care with the resident. I reviewed the resident Dr. Kenisha Marsh consultation progress note and agree with the resident findings and plan in the note above and have also edited the documentation to reflect my findings and plan. Jose Castellanos M.D. Interventional Cardiology
[2025-04-16] MEDS: VANCOMYCIN/NS 500 MG IVPB 100 ML 120 MG IV (10:36)
--- NOTE | 2025-04-16 10:41 | ESPR_ITS ---
<Statement entered by Adriel Ayoub MD - 04/27/25 08:01> TOTAL TIME: 45MINUTES ON DIRECT MEDICAL CARE, MANAGEMENT - COORDINATION AND COUNSELING > 50% OF TOTAL TIME I saw and evaluated the patient. I reviewed the resident?s note and agree with findings and plan as documented in the resident?s note. No new changes - or acute O/N events agree with BP toilet but cautious due to thrombocytopenia <Statement entered by Carrington Oakes MD - 04/16/25 15:06> Patient was seen and examined in telemetry. Patient's oxygen requirement decreased from yesterday. She appears tachypneic and was breathing at the rate of 25 to 30 breaths/min. Patient was at her baseline mentation and in no acute distress.Morning labs revealed white count 7.0. Hemoglobin 9.6 stable. Platelet count improved slightly from 29->31. Electrolyte panel showed mild hypernatremia sodium 152. K: 4.1. Bicarb 21. Chloride 118. BUN/creatinine normal. Blood glucose 157. Chest x-ray showed extensive pneumonia on left side. She is currently NPO. She was found to have right upper extremity swelling and no thrombophlebitis was seen confirmed with a Doppler ultrasound. Recommended if patient needs to have NG tube suctioning would benefit with platelet transfusion before performing NG tube suctioning due to risk of bleeding in the setting of thrombocytopenia. Recommended to continue antibiotic therapy for aspiration pneumonia. If patient remains in respiratory distress with concern for recurrent aspirations, ICU team can intubate and do bronchoscopy if needed. At this point, primary team informed that family does not want to proceed with bronchoscopy and wants medical management with antibiotics. Recommended to continue aspiration precautions. Closely monitor platelets and monitor for signs of bleeding or bruising. ICU team will follow- up. I discussed and supervised with the purchasing internship physician who took care of this patient. I personally saw and examined the patient. I agree with most of the assessment and plan. Disclaimer: Despite multiple revisions, due to the dictation software being used, the document bellow may not be free of grammatical errors including phonetic/typographic errors. However, this does not deter from our commitment to providing health care in the patient's best interest in mind. Plan of care discussed with attending Physician Dr.Malli Carrington Oakes MD PGY-3 Documentation for date of: 04/16/25 Subjective Subjective Interval history: 69-year-old female with a past medical history of primary hypertension, type II diabetes mellitus (non?insulin-dependent), coronary artery disease status post CABG (2019), CVA, aortic stenosis, stage I diastolic ysfunction (EF 60-65%), seizure disorder, age-related dementia, left foot metatarsal amputation, right second toe amputation, and COPD, presented to the ED on 04/11/2025 with altered mental status and hypothermia, with an initial recorded temperature of 84.7?F. ED Course (04/11): -Initial vitals were: 79/48, HR 46, RR 12, T 84.7?F, O2 sat 98% on room air. -Labs significant for: pancytopenia WBC 2.2, RBC 2.86, Hgb 7.6, PLT 34; acute electrolyte disturbances Na 155, OSM 307, K2.4, Mg 1.1, Phos 2.3, Ca 7 and chloride 129; ABG showed pH 7.29, bicarb 18.5, CO2 53. Ammonia 37, albumin 1.5. -Imaging included: CXR: Mild to moderate CHF, enlargement cardiac contour with prominent vascular congestion, possible superimmposed bilateral pnuemonia. CT chest abdomen pelvis: left base pneumonia, consider aspiration. Right upper lobe pulmonary nodules. Multiple subcentimeter axillary lymph nodes. Small bilateral pleural effusions. Significant thickening of the gastric mucosa, differential would include gastritis. Abundant stool in the rectosigmoid but no bowel obstruction. Rectal wall thickening, consider proctitis, recommend direct inspection. Severe osteopenia. Head CT: no acute findings. -In the ED, patient was given: Dopamine drip, IV fluids, Zofran, KCl IV, magnesium sulfate, calcium gluconate, Laverne hugger. Patient was admitted to the ICU for further workup and management of acute metabolic encephalopathy in the setting of severe hypothermia (initial temperature 84.7?F) and severe hypernatremia (Na 155). ICU Course (04/12?04/13) The patient was admitted to the ICU for management of distributive shock. She was placed on contact precautions for suspected scabies and managed with a Laverne Hugger for hypothermia. Dopamine was discontinued and Levophed was initiated for blood pressure support. Empiric antibiotics were started with vancomycin, cefepime, and metronidazole for suspected aspiration pneumonia. D5W was initiated to treat both hypothermia and severe hypernatremia. On admission, the patient was found to have a blood glucose of 65 mg/dL and was started on the hypoglycemia protocol. Once glucose levels normalized, hypernatremia was managed with D5W administration. Patient subsequently developed oxygen desaturation to 88%, suspected to be secondary to developing pulmonary edema from D5W. She was transitioned to an Oxymask at 8 L/min, improving oxygen saturation to 90?92%. Aspiration precautions were initiated, and nasal suctioning with one dose of DuoNeb further improved oxygenation to 94?95% on 6 L/min. Due to concern for volume overload, D5W was paused, and the patient received Lasix for diuresis, resulting in improved respiratory status. She was successfully weaned to room air. Vasopressors were titrated off, and she maintained stable hemodynamics without pharmacologic support. Blood cultures were positive for Staphylococcus aureus and MRSA screen was positive. Vancomycin was continued, and cefepime and metonidazole was discontinued. The patient showed steady clinical improvement and was deemed appropriate for downgrade from the ICU on 04/13. Primary team consulted ICU on 04/1504/15/2025: The primary team consulted the ICU for evaluation of the patient's worsening pneumonia, inability to clear secretions, and declining mental status. The consult was specifically to assess whether the patient would benefit from bronchoscopy versus nasogastric suctioning. The ICU team recommends that if the primary team proceeds with NG suctioning to help reduce the risk of further aspiration, platelets should be transfused before NG suctioning, given thrombocytopenia and bleeding risk. Additional recommendations include continuing antibiotic therapy for pneumonia. Should the patient's condition further deteriorate?necessitating intubation or bronchoscopy?ICU upgrade would be warranted at that time. : Patient was seen and examined in telemetry unit. Patient's oxygen needs slightly have decreased compared to yesterday, however, patient continues to be tachypneic. Patient is resting in bed in no acute distress and is able to be aroused by calling her name. Patient appears tired and appeared not able to use her voice at this time. Patient continues to be NPO. Patient was noted to have significant R upper extremity edema. A right UE doppler US was ordered to rule out thrombophlebitis. Overall patient continues to have a similar clinical status compared to yesterday and our recommendations continue to be that if the primary team proceeds with NG suctioning to help reduce the risk of further aspiration, platelets should be transfused before NG suctioning, given thrombocytopenia and bleeding risk. Additional recommendations include continuing antibiotic therapy for pneumonia, as previously noted. Exam Vital Signs Temp Pulse Resp BP Pulse Ox O2 Del Method O2 Flow Rate 95.5 F L 61 30 H 132/77 H 99 Nasal Cannula 2 04/16/25 08:00 04/16/25 08:00 04/16/25 08:00 04/16/25 08:00 04/16/25 08:00 04/16/25 08:00 04/16/25 08:00 FiO2 62 04/16/25 07:43 Narrative Exam General: no acute distress; saturating 99% O2 on 2L NC; Patient is alert to voice, able to track with her eyes; lethargic Skin: Warm extremities; white/flaky skin throughout; numerous small skin lesions HENT: NCAT, PERRL, not icteric. External ears normal. No rhinorrhea. Dry mucous membranes Cardiovascular: Regular rate and rhythm, systolic ejection murmur, +S1/S2. Respiratory: Coarse sounds bilaterally, rhonchi; tachypneic GI: Soft, nontender, non-distended. No guarding or rebound tenderness. : No suprapubic tenderness. No flank tenderness bilaterally. Extremities: Right Upper Extremity diffuse swelling; no cyanosis, no clubbing. Extremity pulses present; Left foot tarsal amputation, right foot second digit amputation, necrotic region right foot first digit Neuro: Grossly nonfocal. Moving all 4 extremities. CN not formally tested but appear grossly intact. Objective Labs 04/16/25 04:40 04/16/25 04:40 Labs: Laboratory Results - last 24 hr 04/15/25 04/15/25 04/15/25 05:40 09:10 11:20 WBC RBC Hgb Hct MCV MCH MCHC RDW Std Deviation Plt Count Neut % (Auto) Lymph % (Auto) [place] % (Auto) Eos % (Auto) Baso % (Auto) Neut # (Auto) Lymph # (Auto) [place] # (Auto) Eos # (Auto) Baso # (Auto) Immature Gran # (Auto) Absolute Nucleated RBC Immature Gran % Nucleated RBC % Retic Count (auto) 0.8 Absolute Retic 27.4 Immature Retic Fraction 10.1 Retic Hgb Content CHr 33.5 Sodium Potassium Chloride Carbon Dioxide Anion Gap BUN Creatinine Estim Creat Clear Calc eGFR BUN/Creatinine Ratio Glucose Calculated Osmolality Calcium Corrected Calcium Phosphorus Magnesium Total Bilirubin AST ALT Alkaline Phosphatase Lactate Dehydrogenase 277 H Total Protein Albumin Globulin Albumin/Globulin Ratio Vancomycin Trough Random Vancomycin 24.4 Coccidioides IgM Ab Negative HIV 1&2 Antibody Rapid Non-Reactive Misc Test Result 04/16/25 04/16/25 04:40 08:15 WBC 7.0 RBC 3.61 L Hgb 9.6 L Hct 28.7 L MCV 80 MCH 26.6 MCHC 33.4 RDW Std Deviation 53.1 H Plt Count 31 L Neut % (Auto) 78 Lymph % (Auto) 9 L [place] % (Auto) 4 Eos % (Auto) 8 Baso % (Auto) 1 Neut # (Auto) 5.5 Lymph # (Auto) 0.6 L [place] # (Auto) 0.3 Eos # (Auto) 0.5 Baso # (Auto) 0.0 Immature Gran # (Auto) 0.05 H Absolute Nucleated RBC 0.00 Immature Gran % 1 H Nucleated RBC % 0 Retic Count (auto) Absolute Retic Immature Retic Fraction Retic Hgb Content CHr Sodium 152 H Potassium 4.1 D Chloride 118 H Carbon Dioxide 21.0 Anion Gap 13 BUN 37 H Creatinine 0.7 Estim Creat Clear Calc 69.0 eGFR > 60 BUN/Creatinine Ratio 53 H Glucose 157 H Calculated Osmolality 313 H Calcium 8.7 Corrected Calcium 9.3 Phosphorus 2.9 Magnesium 2.4 Total Bilirubin 0.9 AST 24 ALT 37 Alkaline Phosphatase 106 Lactate Dehydrogenase Total Protein 5.3 L Albumin 3.3 L Globulin 2.0 L Albumin/Globulin Ratio 1.7 Vancomycin Trough 20.0 H Random Vancomycin Coccidioides IgM Ab HIV 1&2 Antibody Rapid Misc Test Result Platelets confirmed ABG Interpretation ABG results: 04/11/25 04/14/25 21:53 23:37 ABG pH 7.29 L 7.47 H ABG pCO2 53 H 30 L ABG pO2 90 61 L ABG HCO3 25 21 ABG O2 Saturation 97 94 ABG Base Excess -2 -2 Quality Measures Quality Measures VTE prophylaxis Advance care planning discussed with:: patient and child Assessment & Plan Assessment Current Active Medications: Generic Name Dose Route Start Last Admin Trade Name Freq PRN Reason Stop Dose Admin Dextrose 50 ml 04/12/25 00:08 04/12/25 12:20 Dextrose 50%-Water Inj 50 Ml Syringe IV 05/12/25 00:07 50 ml Q15MIN PRN Administration BG <50 OR BG <70 & pt unresponsive Enoxaparin Sodium 40 mg 04/12/25 21:00 04/13/25 08:52 Enoxaparin Sod Inj 40 Mg/0.4 Ml Syringe SC 04/26/25 20:59 40 mg On Hold: 04/14/25 07:01 QDAY HARPER Administration Glucagon 1 mg 04/12/25 00:08 Glucagon Inj 1 Mg Vial IM Q15MIN PRN BG <70, and no IV access Metronidazole 500 mg in 100 mls @ 200 mls/hr 04/14/25 08:47 04/16/25 05:24 Flagyl 500 Mg Iv IV 04/21/25 08:46 200 mls/hr Q8HR HARPER Administration Cefepime HCl 2 gm/ Sodium 50 mls @ 100 mls/hr 04/14/25 15:11 04/16/25 05:23 Chloride IV 04/21/25 15:10 100 mls/hr Q8HR HARPER Administration Multivitamins/Minerals 10 ml/ 2,010 mls @ 40 mls/hr 04/15/25 18:00 04/15/25 18:09 Amino Acids IV 04/16/25 17:59 40 mls/hr .Q24H ONE Administration Multivitamins/Minerals 10 ml/ 2,015 mls @ 83 mls/hr 04/16/25 18:00 Potassium Phosphate 15 mmol/ IV 04/17/25 17:59 Amino Acids .Q24H ONE Vancomycin/Sodium Chloride 100 mls @ 120 mls/hr 04/16/25 10:00 04/16/25 10:36 Vancomycin/Ns 500 Mg Ivpb IV 04/23/25 09:59 120 mls/hr QDAY@1000 HARPER Administration Insulin Human Lispro 0 unit 04/14/25 21:00 04/16/25 07:54 Insulin Lispro (Admelog) 1 Unit/0.01 Ml Unit SC 05/14/25 20:59 Not Given ACHS [facility] Protocol Levetiracetam 1,000 mg 04/12/25 21:00 04/16/25 09:47 Levetiracetam Inj 100 Mg/Ml Vial 5ml IVP 05/12/25 20:59 1,000 mg Q12HR HARPER Administration Multi-Ingredient Ointment 0 oz 04/12/25 12:30 04/15/25 15:00 Min Oil/Pet,White (Eucerin) Cr 16 Oz Btl TOP 05/12/25 12:29 1 appln DAILY HARPER Administration Ondansetron HCl 4 mg 04/11/25 22:23 Ondansetron Inj 2 Mg/Ml Inj 2 Ml IVP 05/11/25 22:22 Q6H PRN NAUSEA OR VOMITING Protocol Pantoprazole Sodium 40 mg 04/12/25 10:30 04/16/25 09:46 Pantoprazole Inj 40 Mg Vial IVP 05/12/25 10:29 40 mg QDAY HARPER Administration Pharmacy Consult 1 each 04/12/25 09:00 Vancomycin Pharmacy To Dose 1 Each Each IV 05/12/25 08:59 QDAY PRN RX Sodium Chloride 4 ml 04/15/25 13:00 04/16/25 07:43 Sodium Cl Rt Mere 3% 4 Ml Nebu (Non-Formulary) INH 05/15/25 12:59 4 ml Q6HRRT HARPER Administration Terbinafine HCl 2 gm 04/11/25 23:00 04/16/25 05:23 Terbinafine Hcl Cr 1% 12 Gm Tube TOP 05/11/25 22:59 2 gm TID HARPER Administration Plan 69-year-old female with multiple comorbidities admitted for acute metabolic encephalopathy in the setting of severe hypothermia, electrolyte disturbances, and mangement of distributive shock. Neurology #Acute encephalopathy likely multifactorial, #Hypertonic hyperNatremia #Acute hypothermia #Hyperammonemia DDx: shock, electrolyte disturbances, hyperammonemia, hypothermia. Diagnostic Test: - Head CT showed no acute pathology. - Blood glucose 65. - Ammonia: 37. - Sodium 155. - Admission temperature 85.1F. Treatment Plan: - Further management per primary team, no specific ICU recommendations. #History of seizures Per history. On home Keppra 1g BID. Unknown when last seizure occurred. Treatment Plan: - Further management per primary team, no specific ICU recommendations. Cardiovascular #Distributive shock DDx: cardiogenic vs septic vs other distributive. Diagnostic Test: - Bedside echo 04/12 showed no septal wall hypokinesis, good ejection fraction, severe aortic stenosis with lack of motion from 1 aortic leaflet. - Echo 2023: Stage I diastolic dysfunction EF 60-65%, moderate AV stenosis velocity 3.1 and peak gradient 21. Thickening of the MV leaflet and mild MR and TR. - On admission, the patient required dopamine for hypotension, which was later escalated to Levophed for improved hemodynamic support in ICU. Treatment Plan: - Cardiology following, appreciate recs. - Further management per primary team, no specific ICU recommendations. #History of aortic stenosis #History of primary hypertension #Bradycardia Diagnostic Test: - Echo 2023: moderate AV stenosis velocity 3.1 and peak gradient. Treatment Plan: - Cardiology following, appreciate recs. - Further management per primary team, no specific ICU recommendations. Respiratory #Left base pneumonia, possible aspiration DDx: aspiration pneumonia vs Legionella vs valley fever Diagnostic Test: - CXR 04/11: Consider superimposed bilateral pneumonia. - CT chest/abd/pelvis 04/11: Left base pneumonia, consider aspiration pneumonia. Right upper lobe pulmonary nodules. Small bilateral pleural effusions. - CXR 04/13: Interval diffuse pneumonia left lung. - CXR 04/14: Persistent diffuse left lung pneumonia. - CXR 04/15: No improvement in diffuse significant left lung pneumonia. Treatment Plan: - Continue vancomycin (04/11- ), metronidazole (04/11, 04/14 - ), cefepime (04/14- ). - ICU team recommends that if the primary team proceeds with NG suctioning to help reduce the risk of further aspiration, platelets should be transfused before NG suctioning, given thrombocytopenia and bleeding risk. Additional recommendations include continuing antibiotic therapy for pneumonia. Should the patient's condition further deteriorate?necessitating intubation or bronchoscopy?ICU upgrade would be warranted at that time. #Right upper lobe pulmonary nodules #Bilateral pleural effusions, small #Multiple subcentimeter axillary lymph nodes Treatment Plan: - Further management per primary team, no specific ICU recommendations. GI and F/E/N #Gastritis #Proctitis Diagnostic Test: - CT chest/abd/pelvis 04/11: significant thickening of gastric mucosa, abundant stool in rectosigmoid but no bowel obstruction, rectal wall thickening, consider proctitis. Treatment Plan: - Further management per primary team, no specific ICU recommendations. Renal #Hypernatremia, improving #Hypokalemia, resolved #Hyperchloremia, improving #Hypobicarbinemia, improving #Hypophosphatemia, resolved #Hypomagnesemia, resolved #Hypocalcemia, resolved Treatment Plan: - Further management per primary team, no specific ICU recommendations. Heme #Severe thrombocytopenia Diagnostic Test: - Plt count over the course of this hospitalization: 34 --> 59 --> 43 --> 27 --> 23 --> 29 Treatment Plan: - Further management per primary team, no specific ICU recommendations. #Anemia of chronic disease #Normocytic normochronic anemia Treatment Plan: - Further management per primary team, no specific ICU recommendations. Endo #NIDDM2 Diagnostic Test: - Hemoglobin A1c 8.1. Treatment Plan: - Further management per primary team, no specific ICU recommendations. MSK #Hx of L diabetic foot tarsal amputation #Hx of osteomyelitis of R foot distal fourth metatarsal and proximal phalanx fourth digit #Hx of R big toe abscess s/p I&D of R big toe and 2nd toe amputation (12/04/24) ID #Diffuse excoriations #Tinea capitis Treatment Plan: - Further management per primary team, no specific ICU recommendations. Health Maintenance DVT prophylaxis: Levenox held for severe thrombocytopenia GI prophylaxis: IV pantoprazole 40 mg QD Diet: Blenderized Puree, PPN Juan: present Lines: Peripherals Drips: none Vent: not on MV CODE STATUS: FULL CODE Patient plan of care was discussed with the attending physician, Dr. Ayoub & senior resident Dr. Violette Wong MD PGY-1
[2025-04-16] MEDS: MIN OIL/PET,WHITE (Eucerin) CR 16 OZ BTL TOP (11:35)
[2025-04-16] MEDS: INSULIN LISPRO (AdmeLOG) 1 UNIT/0.01 ML UNIT SC ×2 (11:39→17:36)
--- NOTE | 2025-04-16 11:53 | XR_ITS ---
EXAMINATION: AP chest single view TECHNIQUE: AP portable semiupright chest single view Date and time: April 16, 2025, 12:25 p.m., comparison April 15, 2025 INDICATIONS: Increasing hypoxia shortness of breath today FINDINGS: Again noted severe extensive left lung pneumonia Mild enlargement cardiac contour Moderate vascular congestion Prominent osteopenia IMPRESSION: Extensive left lung pneumonia again noted
--- NOTE | 2025-04-16 12:19 | PD.RESPRO ---
Documentation for date of: 04/16/25 Subjective Subjective Interval history: Overnight, SBP 180s and hydralazine 5 mg x 1 given. Patient seen examined at bedside. This a.m., patient does not open eyes to physical or verbal stimulation, only turning head towards interviewer. Right upper extremity continues to be swollen. Unable to assess orientation as patient refuses to speak. Labs and vitals reviewed, BP fluctuates SBP 120-175. Telemetry reviewed, overnight sinus rhythm 50s. Respiration rates 20s to 30s. Occasionally hypothermic temperatures averages 96s. Patient saturating 98% on 2 L nasal cannula. Significant labs include hemoglobin stable low 9.6, platelets increased from 29-31. Sodium 148 to 152, chloride 118, BUN stable elevated 37, creatinine 0.7, HIV negative cocci IgM negative. Reticulocyte 0.8. Continue broad-spectrum antibiotics and TPN. Follow-up right upper extremity ultrasound due to continued right upper extremity swelling. Consider consulting heme-onc in the setting of persistent thrombocytopenia. Pulmonology consulted yesterday, minimal benefit from bronchoscopy at this time. Although hyponatremia, no extra D5W at this time and hydration will be through PPN. Exam Vital Signs Temp Pulse Resp BP Pulse Ox O2 Del Method O2 Flow Rate 95.5 F L 61 30 H 132/77 H 99 Nasal Cannula 2 04/16/25 08:00 04/16/25 08:00 04/16/25 08:00 04/16/25 08:00 04/16/25 08:00 04/16/25 08:00 04/16/25 08:00 FiO2 62 04/16/25 07:43 Narrative Exam GENERAL: no acute distress, refusing to speak, unable to assess orientation, malodorous, thin and frail HEENT: mucous membranes dry, bilateral sclera anicteric, crusted lips, seborrheic dermatitis CARDIOVASCULAR: regular rate and rhythm, 4/6 systolic ejection murmur PULMONARY: clear to auscultation bilaterally, no rales/rhonchi/wheezes ABDOMINAL: soft, non-tender, non-distended, no rebound/guarding, bowel sounds present EXTREMITIES: BLE non pitting edema, L foot tarsal amputation, R foot 2nd digit amputation SKIN: warm and dry, widespread small skin lesions scabbed over NEURO: CN II-XII grossly intact, no focal deficits, not speaking, not opening eyes to verbal stimulation Objective Labs 04/16/25 04:40 04/16/25 04:40 Labs: Laboratory Results - last 24 hr 04/15/25 04/15/25 04/15/25 05:40 09:10 11:20 WBC RBC Hgb Hct MCV MCH MCHC RDW Std Deviation Plt Count Neut % (Auto) Lymph % (Auto) Boyle % (Auto) Eos % (Auto) Baso % (Auto) Neut # (Auto) Lymph # (Auto) Boyle # (Auto) Eos # (Auto) Baso # (Auto) Immature Gran # (Auto) Absolute Nucleated RBC Immature Gran % Nucleated RBC % Retic Count (auto) 0.8 Absolute Retic 27.4 Immature Retic Fraction 10.1 Retic Hgb Content CHr 33.5 Sodium Potassium Chloride Carbon Dioxide Anion Gap BUN Creatinine Estim Creat Clear Calc eGFR BUN/Creatinine Ratio Glucose Calculated Osmolality Calcium Corrected Calcium Phosphorus Magnesium Total Bilirubin AST ALT Alkaline Phosphatase Lactate Dehydrogenase 277 H Total Protein Albumin Globulin Albumin/Globulin Ratio Vancomycin Trough Random Vancomycin 24.4 Coccidioides IgM Ab Negative HIV 1&2 Antibody Rapid Non-Reactive Misc Test Result 04/16/25 04/16/25 04:40 08:15 WBC 7.0 RBC 3.61 L Hgb 9.6 L Hct 28.7 L MCV 80 MCH 26.6 MCHC 33.4 RDW Std Deviation 53.1 H Plt Count 31 L Neut % (Auto) 78 Lymph % (Auto) 9 L Boyle % (Auto) 4 Eos % (Auto) 8 Baso % (Auto) 1 Neut # (Auto) 5.5 Lymph # (Auto) 0.6 L Boyle # (Auto) 0.3 Eos # (Auto) 0.5 Baso # (Auto) 0.0 Immature Gran # (Auto) 0.05 H Absolute Nucleated RBC 0.00 Immature Gran % 1 H Nucleated RBC % 0 Retic Count (auto) Absolute Retic Immature Retic Fraction Retic Hgb Content CHr Sodium 152 H Potassium 4.1 D Chloride 118 H Carbon Dioxide 21.0 Anion Gap 13 BUN 37 H Creatinine 0.7 Estim Creat Clear Calc 69.0 eGFR > 60 BUN/Creatinine Ratio 53 H Glucose 157 H Calculated Osmolality 313 H Calcium 8.7 Corrected Calcium 9.3 Phosphorus 2.9 Magnesium 2.4 Total Bilirubin 0.9 AST 24 ALT 37 Alkaline Phosphatase 106 Lactate Dehydrogenase Total Protein 5.3 L Albumin 3.3 L Globulin 2.0 L Albumin/Globulin Ratio 1.7 Vancomycin Trough 20.0 H Random Vancomycin Coccidioides IgM Ab HIV 1&2 Antibody Rapid Misc Test Result Platelets confirmed ABG Interpretation ABG results: 04/11/25 04/14/25 21:53 23:37 ABG pH 7.29 L 7.47 H ABG pCO2 53 H 30 L ABG pO2 90 61 L ABG HCO3 25 21 ABG O2 Saturation 97 94 ABG Base Excess -2 -2 Quality Measures Quality Measures VTE prophylaxis Advance care planning discussed with:: child Assessment & Plan Assessment Current Active Medications: Generic Name Dose Route Start Last Admin Trade Name Freq PRN Reason Stop Dose Admin Dextrose 50 ml 04/12/25 00:08 04/12/25 12:20 Dextrose 50%-Water Inj 50 Ml Syringe IV 05/12/25 00:07 50 ml Q15MIN PRN Administration BG <50 OR BG <70 & pt unresponsive Enoxaparin Sodium 40 mg 04/12/25 21:00 04/13/25 08:52 Enoxaparin Sod Inj 40 Mg/0.4 Ml Syringe SC 04/26/25 20:59 40 mg On Hold: 04/14/25 07:01 QDAY HARPER Administration Glucagon 1 mg 04/12/25 00:08 Glucagon Inj 1 Mg Vial IM Q15MIN PRN BG <70, and no IV access Metronidazole 500 mg in 100 mls @ 200 mls/hr 04/14/25 08:47 04/16/25 05:24 Flagyl 500 Mg Iv IV 04/21/25 08:46 200 mls/hr Q8HR HARPER Administration Cefepime HCl 2 gm/ Sodium 50 mls @ 100 mls/hr 04/14/25 15:11 04/16/25 05:23 Chloride IV 04/21/25 15:10 100 mls/hr Q8HR HARPER Administration Multivitamins/Minerals 10 ml/ 2,010 mls @ 40 mls/hr 04/15/25 18:00 04/15/25 18:09 Amino Acids IV 04/16/25 17:59 40 mls/hr .Q24H ONE Administration Multivitamins/Minerals 10 ml/ 2,015 mls @ 83 mls/hr 04/16/25 18:00 Potassium Phosphate 15 mmol/ IV 04/17/25 17:59 Amino Acids .Q24H ONE Vancomycin/Sodium Chloride 100 mls @ 120 mls/hr 04/16/25 10:00 04/16/25 10:36 Vancomycin/Ns 500 Mg Ivpb IV 04/23/25 09:59 120 mls/hr QDAY@1000 HARPER Administration Insulin Human Lispro 0 unit 04/14/25 21:00 04/16/25 11:39 Insulin Lispro (Admelog) 1 Unit/0.01 Ml Unit SC 05/14/25 20:59 1 unit ACHS HARPER Administration Protocol Levetiracetam 1,000 mg 04/12/25 21:00 04/16/25 09:47 Levetiracetam Inj 100 Mg/Ml Vial 5ml IVP 05/12/25 20:59 1,000 mg Q12HR HARPER Administration Multi-Ingredient Ointment 0 oz 04/12/25 12:30 04/16/25 11:35 Min Oil/Pet,White (Eucerin) Cr 16 Oz Btl TOP 05/12/25 12:29 1 appln DAILY HARPER Administration Ondansetron HCl 4 mg 04/11/25 22:23 Ondansetron Inj 2 Mg/Ml Inj 2 Ml IVP 05/11/25 22:22 Q6H PRN NAUSEA OR VOMITING Protocol Pantoprazole Sodium 40 mg 04/12/25 10:30 04/16/25 09:46 Pantoprazole Inj 40 Mg Vial IVP 05/12/25 10:29 40 mg QDAY HARPER Administration Pharmacy Consult 1 each 04/12/25 09:00 Vancomycin Pharmacy To Dose 1 Each Each IV 05/12/25 08:59 QDAY PRN RX Sodium Chloride 4 ml 04/15/25 13:00 04/16/25 07:43 Sodium Cl Rt Mere 3% 4 Ml Nebu (Non-Formulary) INH 05/15/25 12:59 4 ml Q6HRRT HARPER Administration Terbinafine HCl 2 gm 04/11/25 23:00 04/16/25 05:23 Terbinafine Hcl Cr 1% 12 Gm Tube TOP 05/11/25 22:59 2 gm TID HARPER Administration Plan Jill Holden 69F pmhx significant for primary hypertension, NIDDM2, CAD s/p CABG, hx of CVA, seizure disorder, age-related dementia, left diabetic foot metatarsal amputation, right foot second digit amputation and COPD, who presented to [facility] ED for acute encephalopathy, initially admitted to ICU for distributive shock from unknown source requiring pressor support and downgraded to floors on 04/13. #Distributive shock and #Acute infectious encephalopathy 2/2 #L Base PNA, likely aspiration with gram-negative versus anaerobic bacteria #Hypothermia #RUE swelling Patient presented obtunded with AMS, BP 79/48 MAP 51-52, HR 46, temp 84.7, WBC 2.2. Directly admitted to ICU requiring dopamine and Levophed pressors. Eventually weaned off and downgraded 04/13. Per ICU, mentation has improved since admission following broad spectrum abx and fluid resuscitation. UA unremarkable, lactic acid 0.9 on admission. Lipase 115. Ammonia 37. CRP neg, ESR 55. BCx 1/[address] Head no acute processes. CTAP showed L base PNA, consider aspiration PNA, R upper lobe pulmonary nodules, multiple subcentimeter axillary lymph nodes, small b/l pleural effusions, significant thickening of gastric mucosa, abundant stool in rectosigmoid but no bowel obstruction, rectal wall thickening, consider proctitis, severe osteopenia Ddx: likely septic from L PNA, possible proctitis, gastritis, vs osteomyelitis as patient improved with fluids and abx. Less likely cardiogenic as patient condition has improved off pressors without continued ionotropic support. Ceftriaxone (04/13-04/14). Repeat BCx NGTD On 04/15/2025, patient's clinical condition deteriorated significantly; she was obtunded, and only lifted head and looked towards people after significant stimulation; patient's family was informed about deteriorating clinical state. NG tube placement unsuccessful due to bleeding, and deep suction cannot be done due to low platelet count. 04/15 repeat CXR no improvement in diffuse significant L lung PNA RUE swelling noted following PPN initiation, likely 2/2 PPN however cannot exclude DVT or occlusion. Plan: - Continue vancomycin (04/11- ), metronidazole (04/11, 04/14 - ), cefepime (04/14- - Chest physiotherapy on board - Given poor PO intake, PPN started (04/15- - Pulmonology consulted, recs appreciated: possibly bronchoscopy for BAL if patient continues to not improve on broad spectrum abx, however minimal benefits with possible reaccumulation of secretions post bronchoscopy, sedation, and thrombocytopenia - F/u RUE US #Severe thrombocytopenia #Anemia of chronic disease On admission Hgb platelets 34, on 04/15/2025, count was 29. Peripheral smear shows normocytic normochronic anemia with normal serium iron and TIBC, consistent with anemia of chronic disease, severe thrombocytopenia, and mild neutropenia. Vitals remains stable at this time. 04/15 liver ultrasound shows normal gallbladder, normal blood, bile duct, mild hepatomegaly, partial visualization of right pleural fluid Ddx for severe thrombocytopenia: infection vs liver disease vs medication induced vs autoimmune Plan: - Trend CBC - Expanded workup for causes of thrombocytopenia, will include HIV and hepatitis serologies, peripheral blood smear, reticulocyte count, LDH, B12 levels, folate count, DONNIE, thiamine, Legionella, valley fever - No platelet transfusion at this time as patient is hemodynamically stable with blood pressure holding and HR wnl, consider platelet transfusion if platelet becomes hemodynamically unstable - DVT prophylaxis Lovenox held - Plan to consult heme/onc tomorrow #Proctitis #Gastritis Patient poor historian, on admission replies yes to pain however when prompted, reports yes to all bodily pain. Unable to localize. Per CTAP imaging as above. Plan: - Continue abx as above - IV pantoprazole 40 mg QD #R upper lobe pulmonary nodules #Multiple subcentimeter axillary lymph nodes Findings CTAP as above. No history of cancer per chart review. Plan: - Abx as above - Recommend to follow up outpatient for further management #Bradycardia -improved #Moderate aortic stenosis #Essential HTN Patient presented with HR 46 on admission. Resolved following resolution of hypothermia, fluid resuscitation and abx. TSH wnl 2.73, 04/12 TTE: Normal left ventricular size and function. Mild LVH. Stage I diastolic dysfunction. Estimated EF 60-65%. Normal RV size and function. RVSP 40 mmHg with RAP 3. Moderate AV stenosis, mean gradient 31 mmHg, vmax 3.7 to 3.8m/s. MELE 1 sq cm. Mild thickened MV leaflets. Mild MR, AI and TR. Compared to prior study of 06/24/24- increased velocities. Likely 2/2 infectious etiology vs heart block. Plan: - Cardiology consulted, recs appreciated: likely 2/2 hypothermia - Telemetry for cardiac monitoring - Keep K>4 and Mg>2 at all times - F/u cortisol #Electrolyte abnormalities #Hypernatremia, improving #Hypokalemia, resolved #Hyperchloremia, improving #Hypobicarbinemia, improving #Hypophosphatemia, resolved #Hypomagnesemia, resolved #Hypocalcemia, resolved On admission, Na 155, K 2.4, Cl 129, bicarb 18.5, glucose 65, Ca 7.0, phos 2.3, Mg 1.1. s/p D5W in ICU Plan: - Recheck and replete as necessary - Consider further D5W if Na continues to uptrend, at this time PPN should be sufficient #NIDDM2 #Hx of L diabetic foot tarsal amputation #Hx of osteomyelitis of R foot distal fourth metatarsal and proximal phalanx fourth digit #Hx of R big toe abscess s/p I&D of R big toe and 2nd toe amputation (12/04/24) Admission A1c 8.1. Per med rec takes metformin 1g BID. Possible osteomyelitis as source of distributive shock. Plan: - SSI in place #Hx of seizures Per history. On home Keppra 1g BID. Unknown when last seizure occurred. Plan: - Continue home Keppra 1g BID - Consider ordering EEG and/or consulting neurology if encephalopathy worsens #Diffuse excoriations #Tinea capitis In ICU initially some concern for scabies, and per son, patient received permethrin and developed skin lesions. Diffuse crusted rash over forehead. Patient continues to scratch, Plan: - Contact precautions, secondary to potential scabies infection - Terbinafine topical 2g TID Hospital management: Lines: PIV Diet: Blenderized Puree, PPN Bowel: None GI prophylaxis: IV pantoprazole 40 mg QD DVT prophylaxis: Lovenox held due to continuing severe thrombocytopenia Disposition: tele for IV abx CODE STATUS: FULL CODE This case was discussed with my attending physician, Dr. Mcintosh. Linda Marsh DO Internal Medicine PGY-1 Attending Provider Attestation/Addendum I have discussed and was present for the essential components of the history, physical examination, diagnosis, and treatment plan with the resident. I agree with the patient's care as documented by the resident and amended herein by me. Jamir Mcintosh DO. Although this document has been carefully reviewed, there may still be some phonetic and other typographical errors. These errors are purely grammatical due to imperfections in the software program and should not be construed in any way to compromise the substance of the patient's medical care during this visit. Patient seen and evaluated this AM. Acute events overnight, respiratory rate 30s this morning however at bedside she was in no acute distress, on 2 L, SpO2 99%, I/O4 20/300 mL overnight, no bowel movements reported. Significant labs include the patient was more alert today although still somnolent, was opening her eyes and moving her extremities which is an improvement over previous day. Still does not answer questions however does track with her eyes, her right upper extremity was very edematous today, likely from the TPN and the antibiotics. Significant labs include a stable hemoglobin of 9.6 platelet count still low at 31 but stable. Sodium 152, potassium 4.1, chloride 118 and bicarb 31. Ultrasound was performed yesterday demonstrated mild hepatomegaly. Coccidiomycosis Coccidioides testing pending, hepatitis panel pending, DONNIE pending, B12 and folate pending. Repeat chest x-ray has been ordered to look slightly improved from my read on the left side however will still continue broad-spectrum antibiotics to include vancomycin, cefepime and Flagyl for now. Will also consult hematology, Dr. Mukherjee tomorrow for thrombocytopenia, reticulocyte counts were low indicating bone marrow failure possibly secondary to say MDS or even a viral or toxic cause. We will continue to monitor closely however she is stable today, slightly improved.
--- NOTE | 2025-04-16 14:26 | PC.SS ---
Rounding note: Mental status slowly improving. On IV antibiotics, may have bronchoscopy. Possible discharge 04/17. Discharging home when medically clear.
[2025-04-16] MEDS: POTASSIUM PHOS IV (17:26)
[2025-04-16] MEDS: AMINO ACIDS IV (17:26)
[2025-04-16] MEDS: D5W IV (17:26)
[2025-04-16] MEDS: MULTIVITAMIN IV (17:26)
[2025-04-16 23:33] LABS: Folate 8.28 ng/mL (>5.38); Hepatitis A Antibody IgM Non Reactive (Non React); Hepatitis B Core Antibody IgM Non Reactive (Non React); Hepatitis B Surface Antigen Non Reactive (Non React); Hepatitis C Antibody Non Reactive (Non React); Vitamin B12 1478 pg/mL (211-911)
[2025-04-17] VITALS (10 sets, daily range): BP systolic 122–158; BP diastolic 61–75; PULSE 48–69; RESP 15–221; TEMP 36.1–36.5; O2SAT 90–100
[2025-04-17] MEDS: INSULIN LISPRO (AdmeLOG) 1 UNIT/0.01 ML UNIT SC ×4 (00:33→17:25)
[2025-04-17] MEDS: SODIUM CL RT SOL 3% 4 ML NEBU (NON-FORMULARY) INH ×4 (01:04→18:12)
[2025-04-17] MEDS: TERBINAFINE HCL 1% 2 GM TOP ×3 (05:47→21:34)
[2025-04-17] MEDS: CEFEPIME INJ 2 GM in SODIUM CHLORIDE 0.9% (Popper) 50 ML IV ×3 (05:48→21:10)
[2025-04-17] MEDS: metroNIDAZOLE/NS 500 MG IVPB 500 MG/100 ML BAG 200 MG IV ×3 (06:24→21:13)
--- NOTE | 2025-04-17 07:19 | PD.RESPRO ---
Documentation for date of: 04/17/25 Subjective Subjective Interval history: Patient seen and assessed at bedside. Responsive to name but still confused and able to verbalize or answer questions. Temperature 96.9 this morning, stable overnight. Plan to continue PPN per primary team. Sinus bradycardia with occasional PVCs on telemetry. Overnight 176/89, self resolved, no hydralazine given. BP 155/69 this morning, usually 130s-140s systolic during the day, consider IV hydralazine if SBP >180 as patient is NPO. Net -450 cc within the past 24 hours but overall gaining weight (62.2 kg -> 67.16 over the past 3 days). Ultrasound right upper extremity was negative for DVT. Chest x-ray continues to show extensive left lung pneumonia, clear costophrenic angles. Potassium 4.0, magnesium 1.9, creatinine 0.6. Sodium improved to 147 (from 152). Exam Vital Signs Temp Pulse Resp BP Pulse Ox O2 Del Method O2 Flow Rate 96.9 F 56 L 15 155/69 H 100 Nasal Cannula 2 04/17/25 04:00 04/17/25 06:30 04/17/25 06:30 04/17/25 04:00 04/17/25 06:30 04/17/25 00:00 04/17/25 06:30 FiO2 62 04/16/25 07:43 Narrative Exam Physical Exam General: Awake and in no acute distress. Not conversational. Confused. Unable to answer questions appropriately. Cachectic. HEENT: Normocephalic, atraumatic, mucous membranes dry. Upper dentures, missing bottom teeth. Heart: Regular rate and rhythm, normal S1 and S2, 4/5 systolic murmur radiating to carotids. Lungs: Clear to auscultation with no wheezing or crackles. Abdomen: Soft, nondistended, nontender, positive bowel sounds. No guarding or rebound tenderness. Neurologic: Alert and oriented x0. Unable to assess as patient is noncompliant with commands. Extremities: No edema. Left foot transmetatarsal amputation. Right foot second digit amputation. Skin: No rash or ecchymoses. Tinea capitis at frontal scalp. Petechial lesions bilateral lower extremities. Very dry skin. Objective Labs 04/17/25 07:16 04/17/25 05:34 Labs: Laboratory Results - last 24 hr 04/15/25 04/16/25 04/16/25 11:20 04:40 08:15 Phosphorus 2.9 Magnesium 2.4 Vitamin B12 1478 H Folate 8.28 Vancomycin Trough 20.0 H Hepatitis A IgM Ab Non Reactive Hep Bs Antigen Non Reactive Hep B Core IgM Ab Non Reactive Hepatitis C Antibody Non Reactive Misc Test Result Platelets confirmed ABG Interpretation ABG results: 04/11/25 04/14/25 21:53 23:37 ABG pH 7.29 L 7.47 H ABG pCO2 53 H 30 L ABG pO2 90 61 L ABG HCO3 25 21 ABG O2 Saturation 97 94 ABG Base Excess -2 -2 Quality Measures Quality Measures VTE prophylaxis Advance care planning discussed with:: patient Assessment & Plan Assessment Current Active Medications: Generic Name Dose Route Start Last Admin Trade Name Freq PRN Reason Stop Dose Admin Dextrose 50 ml 04/12/25 00:08 04/12/25 12:20 Dextrose 50%-Water Inj 50 Ml Syringe IV 05/12/25 00:07 50 ml Q15MIN PRN Administration BG <50 OR BG <70 & pt unresponsive Enoxaparin Sodium 40 mg 04/12/25 21:00 04/13/25 08:52 Enoxaparin Sod Inj 40 Mg/0.4 Ml Syringe SC 04/26/25 20:59 40 mg On Hold: 04/14/25 07:01 QDAY HARPER Administration Glucagon 1 mg 04/12/25 00:08 Glucagon Inj 1 Mg Vial IM Q15MIN PRN BG <70, and no IV access Metronidazole 500 mg in 100 mls @ 200 mls/hr 04/14/25 08:47 04/17/25 06:24 Flagyl 500 Mg Iv IV 04/21/25 08:46 200 mls/hr Q8HR HARPER Administration Cefepime HCl 2 gm/ Sodium 50 mls @ 100 mls/hr 04/14/25 15:11 04/17/25 05:48 Chloride IV 04/21/25 15:10 100 mls/hr Q8HR HARPER Administration Multivitamins/Minerals 10 ml/ 2,015 mls @ 83 mls/hr 04/16/25 18:00 04/16/25 17:26 Potassium Phosphate 15 mmol/ IV 04/17/25 17:59 83 mls/hr Amino Acids .Q24H ONE Administration Vancomycin/Sodium Chloride 100 mls @ 120 mls/hr 04/16/25 10:00 04/16/25 10:36 Vancomycin/Ns 500 Mg Ivpb IV 04/23/25 09:59 120 mls/hr QDAY@1000 HARPER Administration Insulin Human Lispro 0 unit 04/16/25 18:00 04/17/25 05:58 Insulin Lispro (Admelog) 1 Unit/0.01 Ml Unit SC 05/16/25 17:59 1 unit Q6HR HARPER Administration Protocol Levetiracetam 1,000 mg 04/12/25 21:00 04/16/25 21:47 Levetiracetam Inj 100 Mg/Ml Vial 5ml IVP 05/12/25 20:59 1,000 mg Q12HR HARPER Administration Multi-Ingredient Ointment 0 oz 04/12/25 12:30 04/16/25 11:35 Min Oil/Pet,White (Eucerin) Cr 16 Oz Btl TOP 05/12/25 12:29 1 appln DAILY HARPER Administration Ondansetron HCl 4 mg 04/11/25 22:23 Ondansetron Inj 2 Mg/Ml Inj 2 Ml IVP 05/11/25 22:22 Q6H PRN NAUSEA OR VOMITING Protocol Pantoprazole Sodium 40 mg 04/12/25 10:30 04/16/25 09:46 Pantoprazole Inj 40 Mg Vial IVP 05/12/25 10:29 40 mg QDAY HARPER Administration Pharmacy Consult 1 each 04/12/25 09:00 Vancomycin Pharmacy To Dose 1 Each Each IV 05/12/25 08:59 QDAY PRN RX Sodium Chloride 4 ml 04/15/25 13:00 04/17/25 06:30 Sodium Cl Rt Mere 3% 4 Ml Nebu (Non-Formulary) INH 05/15/25 12:59 4 ml Q6HRRT HARPER Administration Terbinafine HCl 2 gm 04/11/25 23:00 04/17/25 05:47 Terbinafine Hcl Cr 1% 12 Gm Tube TOP 05/11/25 22:59 2 gm TID HARPER Administration Plan Patient is a 69-year-old female with past medical history of CAD s/p CABG with history of previous multiple PCI, moderate aortic stenosis, CVA/stroke, seizure disorder with Keppra, essential hypertension, hyperlipidemia, baseline dementia, slurred speech, history of left transmetatarsal amputation with questionable PAD, history of fall with displaced intra-articular fracture of the left hip status post open reduction internal fixation in June 2024 was brought in to the emergency department of worsening altered mental status. Admitted to ICU for acute metabolic encephalopathy in setting of hypertonic hyponatremia and acute hypothermia. Cardiology consulted due to concern for cardiogenic shock given history of CAD and moderate aortic stenosis. #Distributive shock, likely septic or distributive, unlikely cardiogenic #Acute hypothermia #Bradycardia secondary to first-degree heart block #History of aortic stenosis, moderate #History of hypertension #History CVA #History of CAD status post CABG with history of previous multiple PCI Home meds include lisinopril 10 mg daily, aspirin 81 mg daily, Plavix 75 mg daily. On physical exam, auscultated 4/5 ejection systolic murmur radiating to carotids. TSH were normal, A1c was 8.1% in lipid profile showed total cholesterol of 123, HDL of 48 and LDL of 53. Chest x-ray with questionable left-sided pneumonia secondary to aspiration. CT chest abdominal with altered showed small bilateral pleural effusions along with significant thickening of gastric mucosa and some constipation. TTE 06/23/2024 showed normal LV size and function. Mild LVH. Stage I diastolic dysfunction. Estimated EF 60-65%. Normal RV size and function. Moderate AV stenosis, mean gradient 21mmHg, vmax 3.1 m/s. Mild thicken MVL. Midl MR, AI. Trace TR. Bradycardia likely secondary to severe hypothermia. Heart rate now improved to 70s to 80s with conservative treatment of hypothermia. TTE 04/12/25 showed normal left ventricular size and function. Mild LVH. Stage I diastolic dysfunction. Estimated EF 60-65%. Normal RV size and function. RVSP 40 mmHg with RAP 3. Moderate AV stenosis, mean gradient 31 mmHg, vmax 3.7 to 3.8m/s. MELE 1 sq cm. Mild thicken MV leaflets. Mild MR, AI and TR. Compared to prior study of 06/24/24- increased velocities. EKG 04/14 shows sinus bradycardia with first-degree AV block, AR 234, QTc 439. Plan: - Unlikely cardiogenic shock as patient only has moderate aortic stenosis with adequate flow. Likely distributive shock secondary to severe hypothermia or possible sepsis with underlying left lower lobe pneumonia. Patient was bradycardic along with hypotensive on admission which improved with rewarming with a Laverne hugger. - Even if the patient has severe aortic stenosis it is unlikely the patient will be a candidate for TAVR given his multiple comorbidities along with her severe protein calorie malnutrition and will not have good outcome as she is unable to do any kind of rehab. Can consider TAVR for her eventually if her overall clinical status improves over the next few months - Heart rate improving with Laverne hugger. As above, EKG shows first-degree AV block however patient remains asymptomatic with no long pauses noted and is therefore not a candidate for pacemaker placement at this time. - IV hydralazine prn if SBP >180 as patient is NPO - Avoid beta blockers as patient is already bradycardic ? Stable off Levophed and dopamine. Monitor BP. #Hypernatremia #Acute hypokalemia, resolved #Hypomagnesemia # Hypophosphatemia ##Hypocalcemia, resolved Presented with potassium of 2.4 and magnesium 1.1. Overnight given total potassium chloride 40 mEq, magnesium 2 g, calcium gluconate x1. 04/12/2025: Potassium improved to 4.7 at midnight. Calcium improved to 8.7, phosphorus 2.6, magnesium 2.3. ?Keep potassium above 4 and magnesium above 2 - On PPN, adjust sodium content if any. #Acute on chronic normocytic anemia #Protein calorie malnutrition Patient presented with altered mental status and acute metabolic encephalopathy, unclear etiology. Appears to have poor oral intake as the patient was also noted to have severely low albumin at 1.5 as well as total protein at 2.5. Hemoglobin 7.6. In setting of acute gastritis and severe malnutrition. BMI 19.6. ? PPN as above - Workup per primary team #[id number] type 2 diabetes #Hx of LT foot metatrasal amputation and RT foot 2nd digit amputation A1c 8.1. Home meds include metformin 1000 mg twice daily. ?SSI per primary team #Acute encephalopathy in setting of #Hypotonic hyponatremia, severe #Left base PNA, possibly aspiration #Right upper lobe pulmonary nodules #Bilateral pleural effusions, small #Pancytopenia #Proctitis, likely acute #Seizure disorder #Hyperlipidemia #Constipation Vs. bowel ileus #Tinea Capitis #Nasal lesion, possibly basal cell carcinoma #Axillary lymphadenopathy #Baseline dementia #History of questionable PAD with transmetatarsal amputation and right toe amputation #COPD Thank you for your consultation, please do not hesitate to reach out if you have any question or concern Patient plan of care was discussed with the attending physician, Dr. Castellanos. Kenisha Marsh, PGY-1 Attending Provider Attestation/Addendum I have personally seen and examined the patient separately on the above date of service and discussed the plan of care with the resident. I reviewed the resident Dr. Kenisha Marsh consultation progress note and agree with the resident findings and plan in the note above and have also edited the documentation to reflect my findings and plan. Jose Castellanos M.D. Interventional Cardiology
[2025-04-17 07:20] LABS: Alanine Aminotransferase 29 U/L (10-49); Albumin, Serum 3.2 gm/dL (3.4-4.8); Albumin/Globulin Ratio 1.5 (1.2-2.2); Alkaline Phosphatase 92 U/L (46-116); Anion Gap 11 (7-16); Aspartate Amino Transferase 25 U/L (0-34); BUN/Creatinine Ratio 57 Ratio (12-20); Bilirubin,Total 0.8 mg/dL (0.3-1.2); Blood Urea Nitrogen 34 mg/dL (9-23); Calcium 8.8 mg/dL (8.3-10.6); Calcium (Corrected) 9.4 mg/dL (8.5-10.1); Carbon Dioxide 18.5 mMol/L (20.0-31.0); Chloride 118 mMol/L (98-107); Creatinine (Component) 0.6 mg/dL (0.6-1.3); Estimated Creatinine Clearance 80.5 mL/min (>60); Globulin 2.1 gm/dL (2.3-3.5); Glucose 174 mg/dL (74-106); Magnesium 1.9 mg/dL (1.6-2.6); Osmolality,Calculated 304 (275-295); Phosphorous 2.1 mg/dL (2.4-5.1); Potassium 4.0 mMol/L (3.4-5.1); Sodium 147 mMol/L (136-145); Total Protein 5.3 gm/dL (5.7-8.2); eGFR > 60 See Note
[2025-04-17 08:22] LABS: Basophils # (Auto) 0.0 Thou/mm3 (0.0-0.2); Basophils % (Auto) 0 % (0-2.5); Eosinophils # (Auto) 1.8 Thou/mm3 (0.0-0.5); Eosinophils % (Auto) 21 % (0-10); Hematocrit 27.2 % (36.0-46.0); Hemoglobin 9.0 g/dL (12.0-16.0); Immature Granulocytes Auto 0.06 Thou/mm3 (0.00-0.00); Lymphocytes # (Auto) 0.7 Thou/mm3 (1.0-4.8); Lymphocytes % (Auto) 8 % (10-50); Mean Corpuscular HGB Conc 33.1 g/dl (31.0-37.0); Mean Corpuscular Hemoglobin 26.9 pg (25.0-35.0); Mean Corpuscular Volume 81 fL (80-100); Monocytes # (Auto) 0.3 Thou/mm3 (0.0-0.8); Monocytes % (Auto) 4 % (0-12); Neutrophils # (Auto) 5.6 Thou/mm3 (1.8-7.7); Neutrophils % (Auto) 66 % (37-80); Nucleated Red Blood Cell # 0.00 Thou/mm3 (0.00-0.00); Nucleated Red Blood Cell % 0 /100 WBC (0); RDW Standard Deviation 54.5 fL (36.4-46.3); Red Blood Count 3.35 Miln/mm3 (4.00-5.20); White Blood Count 8.5 Thou/mm3 (3.6-11.0)
[2025-04-17 08:56] LABS: Vancomycin,Random 15.2 mcg/mL
[2025-04-17 09:03] LABS: Platelet Count 55 Thou/mm3 (140-440)
[2025-04-17] MEDS: levETIRAcetam INJ 100 MG/ML VIAL 5ML 1000 MG IVP ×2 (09:05→21:13)
[2025-04-17 09:24] LABS: Slide Review Platelets confirmed
[2025-04-17] MEDS: VANCOMYCIN/NS 500 MG IVPB 100 ML 120 MG IV (09:55)
--- NOTE | 2025-04-17 10:01 | ESPR_ITS ---
<Statement entered by Isidro Gama MD - 04/17/25 18:27> Patient seen and examined at bedside. I discussed and supervised with the actuarial intern physician who took care of this patient. I personally saw and examined the patient. I agree with most of the assessment and plan. Plan of care discussed with attending Dr. Clarke. Isidro Gama MD PGY-2 Documentation for date of: 04/17/25 Subjective Subjective Interval history: 69-year-old female with a past medical history of primary hypertension, type II diabetes mellitus (non?insulin-dependent), coronary artery disease status post CABG (2019), CVA, aortic stenosis, stage I diastolic ysfunction (EF 60-65%), seizure disorder, age-related dementia, left foot metatarsal amputation, right second toe amputation, and COPD, presented to the ED on 04/11/2025 with altered mental status and hypothermia, with an initial recorded temperature of 84.7?F. ED Course (04/11): -Initial vitals were: 79/48, HR 46, RR 12, T 84.7?F, O2 sat 98% on room air. -Labs significant for: pancytopenia WBC 2.2, RBC 2.86, Hgb 7.6, PLT 34; acute electrolyte disturbances Na 155, OSM 307, K2.4, Mg 1.1, Phos 2.3, Ca 7 and chloride 129; ABG showed pH 7.29, bicarb 18.5, CO2 53. Ammonia 37, albumin 1.5. -Imaging included: CXR: Mild to moderate CHF, enlargement cardiac contour with prominent vascular congestion, possible superimmposed bilateral pnuemonia. CT chest abdomen pelvis: left base pneumonia, consider aspiration. Right upper lobe pulmonary nodules. Multiple subcentimeter axillary lymph nodes. Small bilateral pleural effusions. Significant thickening of the gastric mucosa, differential would include gastritis. Abundant stool in the rectosigmoid but no bowel obstruction. Rectal wall thickening, consider proctitis, recommend direct inspection. Severe osteopenia. Head CT: no acute findings. -In the ED, patient was given: Dopamine drip, IV fluids, Zofran, KCl IV, magnesium sulfate, calcium gluconate, Laverne hugger. Patient was admitted to the ICU for further workup and management of acute metabolic encephalopathy in the setting of severe hypothermia (initial temperature 84.7?F) and severe hypernatremia (Na 155). L ICU Course (04/12?04/13) The patient was admitted to the ICU for management of distributive shock. She was placed on contact precautions for suspected scabies and managed with a Laverne Hugger for hypothermia. Dopamine was discontinued and Levophed was initiated for blood pressure support. Empiric antibiotics were started with vancomycin, cefepime, and metronidazole for suspected aspiration pneumonia. D5W was initiated to treat both hypothermia and severe hypernatremia. On admission, the patient was found to have a blood glucose of 65 mg/dL and was started on the hypoglycemia protocol. Once glucose levels normalized, hypernatremia was managed with D5W administration. Patient subsequently developed oxygen desaturation to 88%, suspected to be secondary to developing pulmonary edema from D5W. She was transitioned to an Oxymask at 8 L/min, improving oxygen saturation to 90?92%. Aspiration precautions were initiated, and nasal suctioning with one dose of DuoNeb further improved oxygenation to 94?95% on 6 L/min. Due to concern for volume overload, D5W was held, and the patient received Lasix for diuresis, resulting in improved respiratory status. She was successfully weaned to room air. Vasopressors were titrated off, and she maintained stable hemodynamics without pharmacologic support. Blood cultures were positive for Staphylococcus aureus and MRSA screen was positive. Vancomycin was continued, and cefepime and metonidazole was discontinued. The patient showed steady clinical improvement and was deemed appropriate for downgrade from the ICU on 04/13. L Primary team consulted ICU on 04/1504/17/2025: Patient was seen and examined in the telemetry unit this morning. Oxygen requirement remains unchanged from yesterday, currently on 2L nasal cannula. The patient is bundled in bed with a Laverne Hugger. Bedside nurse reports that the patient?s temperature again decreased to 95.5?F. A right upper extremity Doppler ultrasound was performed yesterday for evaluation of edema and was negative for DVT. The patient?s overall clinical status remains similar to the previous day. Per the primary team, the family has declined bronchoscopy. The ICU team?s recommendations include transfusion of platelets for thrombocytopenia and consideration of NG and/or PEG tube placement for nutritional support. 04/16/2025: Patient was seen and examined in telemetry unit. Patient's oxygen needs slightly have decreased compared to yesterday, however, patient continues to be tachypneic. Patient is resting in bed in no acute distress and is able to be aroused by calling her name. Patient appears tired and appeared not able to use her voice at this time. Patient continues to be NPO. Patient was noted to have significant R upper extremity edema. A right UE doppler US was ordered to rule out thrombophlebitis. Overall patient continues to have a similar clinical status compared to yesterday and our recommendations continue to be that if the primary team proceeds with NG suctioning to help reduce the risk of further aspiration, platelets should be transfused before NG suctioning, given thrombocytopenia and bleeding risk. Additional recommendations include continuing antibiotic therapy for pneumonia, as previously noted. 04/15/2025: The primary team consulted the ICU for evaluation of the patient's worsening pneumonia, inability to clear secretions, and declining mental status. The consult was specifically to assess whether the patient would benefit from bronchoscopy versus nasogastric suctioning. The ICU team recommends that if the primary team proceeds with NG suctioning to help reduce the risk of further aspiration, platelets should be transfused before NG suctioning, given thrombocytopenia and bleeding risk. Additional recommendations include continuing antibiotic therapy for pneumonia. Should the patient's condition further deteriorate?necessitating intubation or bronchoscopy?ICU upgrade would be warranted at that time. Exam Vital Signs Temp Pulse Resp BP Pulse Ox O2 Del Method O2 Flow Rate 97.2 F 58 L 23 H 122/62 99 Nasal Cannula 2 04/17/25 08:00 04/17/25 08:00 04/17/25 08:00 04/17/25 08:00 04/17/25 08:00 04/17/25 08:00 04/17/25 08:00 FiO2 62 04/16/25 07:43 Narrative Exam General: no acute distress; saturating 99% O2 on 2L NC; Patient is alert to voice, able to track with her eyes; lethargic Skin: Warm extremities; white/flaky skin throughout; numerous small skin lesions HENT: NCAT, PERRL, not icteric. External ears normal. No rhinorrhea. Dry mucous membranes Cardiovascular: Regular rate and rhythm, systolic ejection murmur, +S1/S2. Respiratory: Coarse sounds bilaterally, rhonchi; tachypneic GI: Soft, nontender, non-distended. No guarding or rebound tenderness. : No suprapubic tenderness. No flank tenderness bilaterally. Extremities: Right Upper Extremity diffuse swelling; no cyanosis, no clubbing. Extremity pulses present; Left foot tarsal amputation, right foot second digit amputation, necrotic region right foot first digit Neuro: Grossly nonfocal. Moving all 4 extremities. Objective Labs 04/23/25 04:38 04/23/25 04:38 Labs: Laboratory Results - last 24 hr 04/15/25 04/17/25 04/17/25 11:20 05:34 07:16 WBC 8.5 RBC 3.35 L Hgb 9.0 L Hct 27.2 L MCV 81 MCH 26.9 MCHC 33.1 RDW Std Deviation 54.5 H Plt Count 55 L D Neut % (Auto) 66 Lymph % (Auto) 8 L [place] % (Auto) 4 Eos % (Auto) 21 H Baso % (Auto) 0 Neut # (Auto) 5.6 Lymph # (Auto) 0.7 L [place] # (Auto) 0.3 Eos # (Auto) 1.8 H Baso # (Auto) 0.0 Immature Gran # (Auto) 0.06 H Absolute Nucleated RBC 0.00 Immature Gran % 1 H Nucleated RBC % 0 Sodium 147 H Potassium 4.0 Chloride 118 H Carbon Dioxide 18.5 L Anion Gap 11 BUN 34 H Creatinine 0.6 Estim Creat Clear Calc 80.5 eGFR > 60 BUN/Creatinine Ratio 57 H Glucose 174 H Calculated Osmolality 304 H Calcium 8.8 Corrected Calcium 9.4 Phosphorus 2.1 L Magnesium 1.9 Total Bilirubin 0.8 AST 25 ALT 29 Alkaline Phosphatase 92 Total Protein 5.3 L Albumin 3.2 L Globulin 2.1 L Albumin/Globulin Ratio 1.5 Vitamin B12 1478 H Folate 8.28 Random Vancomycin 15.2 Hepatitis A IgM Ab Non Reactive Hep Bs Antigen Non Reactive Hep B Core IgM Ab Non Reactive Hepatitis C Antibody Non Reactive Misc Test Result Platelets confirmed ABG Interpretation ABG results: 04/11/25 04/14/25 21:53 23:37 ABG pH 7.29 L 7.47 H ABG pCO2 53 H 30 L ABG pO2 90 61 L ABG HCO3 25 21 ABG O2 Saturation 97 94 ABG Base Excess -2 -2 Quality Measures Quality Measures VTE prophylaxis Advance care planning discussed with:: patient Assessment & Plan Assessment Current Active Medications: Generic Name Dose Route Start Last Admin Trade Name Mino PRN Reason Stop Dose Admin Dextrose 50 ml 04/12/25 00:08 04/12/25 12:20 Dextrose 50%-Water Inj 50 Ml Syringe IV 05/12/25 00:07 50 ml Q15MIN PRN Administration BG <50 OR BG <70 & pt unresponsive Enoxaparin Sodium 40 mg 04/12/25 21:00 04/13/25 08:52 Enoxaparin Sod Inj 40 Mg/0.4 Ml Syringe SC 04/26/25 20:59 40 mg On Hold: 04/14/25 07:01 QDAY HARPER Administration Glucagon 1 mg 04/12/25 00:08 Glucagon Inj 1 Mg Vial IM Q15MIN PRN BG <70, and no IV access Metronidazole 500 mg in 100 mls @ 200 mls/hr 04/14/25 08:47 04/17/25 06:24 Flagyl 500 Mg Iv IV 04/21/25 08:46 200 mls/hr Q8HR HARPER Administration Cefepime HCl 2 gm/ Sodium 50 mls @ 100 mls/hr 04/14/25 15:11 04/17/25 05:48 Chloride IV 04/21/25 15:10 100 mls/hr Q8HR HARPER Administration Multivitamins/Minerals 10 ml/ 2,015 mls @ 83 mls/hr 04/16/25 18:00 04/16/25 17:26 Potassium Phosphate 15 mmol/ IV 04/17/25 17:59 83 mls/hr Amino Acids .Q24H ONE Administration Vancomycin/Sodium Chloride 100 mls @ 120 mls/hr 04/16/25 10:00 04/17/25 09:55 Vancomycin/Ns 500 Mg Ivpb IV 04/23/25 09:59 120 mls/hr QDAY@1000 HAPRER Administration Insulin Human Lispro 0 unit 04/16/25 18:00 04/17/25 05:58 Insulin Lispro (Admelog) 1 Unit/0.01 Ml Unit SC 05/16/25 17:59 1 unit Q6HR HARPER Administration Protocol Levetiracetam 1,000 mg 04/12/25 21:00 04/17/25 09:05 Levetiracetam Inj 100 Mg/Ml Vial 5ml IVP 05/12/25 20:59 1,000 mg Q12HR HARPER Administration Multi-Ingredient Ointment 0 oz 04/12/25 12:30 04/16/25 11:35 Min Oil/Pet,White (Eucerin) Cr 16 Oz Btl TOP 05/12/25 12:29 1 appln DAILY HARPER Administration Ondansetron HCl 4 mg 04/11/25 22:23 Ondansetron Inj 2 Mg/Ml Inj 2 Ml IVP 05/11/25 22:22 Q6H PRN NAUSEA OR VOMITING Protocol Pantoprazole Sodium 40 mg 04/12/25 10:30 04/17/25 09:06 Pantoprazole Inj 40 Mg Vial IVP 05/12/25 10:29 40 mg QDAY HARPER Administration Pharmacy Consult 1 each 04/12/25 09:00 Vancomycin Pharmacy To Dose 1 Each Each IV 05/12/25 08:59 QDAY PRN RX Sodium Chloride 4 ml 04/15/25 13:00 04/17/25 06:30 Sodium Cl Rt Mere 3% 4 Ml Nebu (Non-Formulary) INH 05/15/25 12:59 4 ml Q6HRRT HARPER Administration Terbinafine HCl 2 gm 04/11/25 23:00 04/17/25 05:47 Terbinafine Hcl Cr 1% 12 Gm Tube TOP 05/11/25 22:59 2 gm TID HARPER Administration Plan 69-year-old female with multiple comorbidities admitted for acute metabolic encephalopathy in the setting of severe hypothermia, electrolyte disturbances, and mangement of distributive shock. Neurology #Acute encephalopathy likely multifactorial, #Hypertonic hyperNatremia #Acute hypothermia #Hyperammonemia DDx: shock, electrolyte disturbances, hyperammonemia, hypothermia. Diagnostic Test: - Head CT showed no acute pathology. - Blood glucose 65. - Ammonia: 37. - Sodium 155. - Admission temperature 85.1F. Treatment Plan: - Further management per primary team, no specific ICU recommendations. #History of seizures Per history. On home Keppra 1g BID. Unknown when last seizure occurred. Treatment Plan: - Further management per primary team, no specific ICU recommendations. Cardiovascular #Distributive shock DDx: cardiogenic vs septic vs other distributive. Diagnostic Test: - Bedside echo 04/12 showed no septal wall hypokinesis, good ejection fraction, severe aortic stenosis with lack of motion from 1 aortic leaflet. - Echo 2023: Stage I diastolic dysfunction EF 60-65%, moderate AV stenosis velocity 3.1 and peak gradient 21. Thickening of the MV leaflet and mild MR and TR. - On admission, the patient required dopamine for hypotension, which was later escalated to Levophed for improved hemodynamic support in ICU. Treatment Plan: - Cardiology following, appreciate recs. - Further management per primary team, no specific ICU recommendations. #History of aortic stenosis #History of primary hypertension #Bradycardia Diagnostic Test: - Echo 2023: moderate AV stenosis velocity 3.1 and peak gradient. Treatment Plan: - Cardiology following, appreciate recs. - Further management per primary team, no specific ICU recommendations. Respiratory #Left base pneumonia, possible aspiration DDx: aspiration pneumonia vs Legionella vs valley fever Diagnostic Test: - CXR 04/11: Consider superimposed bilateral pneumonia. - CT chest/abd/pelvis 04/11: Left base pneumonia, consider aspiration pneumonia. Right upper lobe pulmonary nodules. Small bilateral pleural effusions. - CXR 04/13: Interval diffuse pneumonia left lung. - CXR 04/14: Persistent diffuse left lung pneumonia. - CXR 04/15: No improvement in diffuse significant left lung pneumonia. Treatment Plan: - Continue vancomycin (04/11- ), metronidazole (04/11, 04/14 - ), cefepime (04/14- ). - ICU team recommends that if the primary team proceeds with NG suctioning to help reduce the risk of further aspiration, platelets should be transfused before NG suctioning, given thrombocytopenia and bleeding risk. Additional recommendations include continuing antibiotic therapy for pneumonia. Should the patient's condition further deteriorate?necessitating intubation or bronchoscopy?ICU upgrade would be warranted at that time. #Right upper lobe pulmonary nodules #Bilateral pleural effusions, small #Multiple subcentimeter axillary lymph nodes Treatment Plan: - Further management per primary team, no specific ICU recommendations. GI and F/E/N #Gastritis #Proctitis Diagnostic Test: - CT chest/abd/pelvis 04/11: significant thickening of gastric mucosa, abundant stool in rectosigmoid but no bowel obstruction, rectal wall thickening, consider proctitis. Treatment Plan: - Further management per primary team, no specific ICU recommendations. Renal #Hypernatremia, improving #Hypokalemia, resolved #Hyperchloremia, improving #Hypobicarbinemia, improving #Hypophosphatemia, resolved #Hypomagnesemia, resolved #Hypocalcemia, resolved Treatment Plan: - Further management per primary team, no specific ICU recommendations. Heme #Severe thrombocytopenia Diagnostic Test: - Plt count over the course of this hospitalization: 34 --> 59 --> 43 --> 27 --> 23 --> 29 Treatment Plan: - Recommend platelet transfusion if concern for bleeding. #Anemia of chronic disease #Normocytic normochronic anemia Treatment Plan: - Further management per primary team, no specific ICU recommendations. Endo #NIDDM2 Diagnostic Test: - Hemoglobin A1c 8.1. Treatment Plan: - Further management per primary team, no specific ICU recommendations. MSK #Hx of L diabetic foot tarsal amputation #Hx of osteomyelitis of R foot distal fourth metatarsal and proximal phalanx fourth digit #Hx of R big toe abscess s/p I&D of R big toe and 2nd toe amputation (12/04/24) ID #Diffuse excoriations #Tinea capitis Treatment Plan: - Further management per primary team, no specific ICU recommendations. L Thank you very much for consulting the ICU team. We will sign off on this case at this time. Please feel free to reach out to the ICU team with any additional questions or concerns. ICU Team Recommendations: - Discuss with the family about discontinuation of PPN and placement of an NG or PEG tube, as enteral feeding is preferred for nutritional support. - Transfuse platelets if there is concern for bleeding during NG tube placement. - [id number] discussions with the family. - No current plans for bronchoscopy, as the patient?s family has declined the procedure. Patient plan of care was discussed with the attending physician, Dr. Clarke & senior resident Dr. Gama. Gaudencio Moran DO Internal Medicine, PGY1 Attending Provider Attestation/Addendum Patient seen and examined with above resident, Gaudencio Moran DO. I agree with the findings, assessment, and plan of care as document except for any differences below. Patient seen for consultation at the request of medicine. Patient does not have any acute ICU requirements at this time. Hemodynamically stable at this time. She continues to be able to adequately protect her airway. Would recommend placement of NG tube to facilitate ability to provide oral medications. Prior to this given her significant thrombocytopenia, platelet transfusion will be warranted to minimize any risk of bleeding. Given ongoing bleeds, ICU team will sign off though we remain available for any questions should they arise.
--- NOTE | 2025-04-17 12:29 | PC.RT ---
Attempted to contact residents x2 for NT suction order to obtain sputum sample, no answer. NT suction order needed as PT is unable to spontaneously produce.
--- NOTE | 2025-04-17 12:58 | XR_ITS ---
EXAMINATION: AP chest single view TECHNIQUE: AP semierect portable chest single view Date and time: April 17, 2025, 1:14 p.m., comparison April 16, 2025 INDICATIONS: Post orogastric tube placement FINDINGS: Orogastric tube in the stomach, the tip is below the level of the film Normal heart size Significant pneumonia left lung IMPRESSION: Orogastric tube in the stomach, the tip is below the level of the film Significant left lung pneumonia
[2025-04-17] MEDS: MIN OIL/PET,WHITE (Eucerin) CR 16 OZ BTL TOP (13:58)
--- NOTE | 2025-04-17 13:59 | ESPR_ITS ---
<Statement entered by Keaton Baltazar MD - 04/17/25 14:36> Patient was seen and evaluated at bedside this morning. No acute overnight events. Patient this morning appears to be doing somewhat better and less secretions were heard on auscultation. Patient's repeat chest x-ray from yesterday that shows some mild improvement in the patient's pneumonia. At this time patient appears to be getting somewhat fluid overloaded likely in the setting of PPN therefore we will attempt to place an NG tube today to start enteral feeds as her platelet count has up trended. Spoke with patient's son at bedside and updated him about the patient's current condition and he was understanding. She was a little bit more responsive and attempting to engage with at least some eye tracking. Will continue with current management and will order sputum cultures as well. If no improvement in platelets let us few days we will likely get hematology consult. I have reviewed the note and agree with the resident's assessment & plan with exceptions as above. I have personally reviewed labs, imaging, home meds/prior records, examined the patient, formulated and discussed management plan with my attending Keaton Baltazar PGY2 Disclaimer: Even though this this note was dictated by speech recognition and even though it was carefully revised there may still be minor errors in cryogenics repairer due to voice recognition software. Documentation for date of: 04/17/25 Subjective Subjective Interval history: No acute events. Patient seen and examined at bedside with son. Patient looks much improved today will turn head and open eyes to stimulation but still does not respond appropriately to questions. Does not nod or shake head and does not verbally answer any questions. Unable to assess orientation due to lack of speaking. Per son, patient experience a breakthrough seizure 3 weeks ago and possibly relates it to onset of pneumonia. Vitals and labs reviewed. SBP 130-160. Heart rate 50s to low 60s. I/O 300/750. Temperature 95 to 97 degrees. Hemoglobin 9.0, platelets 55. Sodium 147, chloride 118, bicarb decreased from 21-18. BUN stable elevated 34, creatinine 0.6, magnesium 1.9, phosphate 2.1. B12 1400, folate within normal limits, right upper extremity negative for DVTs, repeat chest x-ray shows left pneumonia however on review slightly better. Plan to insert NG tube and plan to discontinue PPN if NG tube successfully inserted. Continue vancomycin, metronidazole and cefepime. Ordered sputum cultures. Hold off on heme consult as platelets increased. Continue Laverne hugger. Exam Vital Signs Temp Pulse Resp BP Pulse Ox O2 Del Method O2 Flow Rate 97.7 F 54 L 19 126/61 100 Nasal Cannula 2 04/17/25 12:00 04/17/25 12:23 04/17/25 12:23 04/17/25 12:00 04/17/25 12:23 04/17/25 12:00 04/17/25 12:23 FiO2 62 04/16/25 07:43 Narrative Exam GENERAL: no acute distress, refusing to speak, unable to assess orientation, malodorous, thin and frail HEENT: mucous membranes dry, bilateral sclera anicteric, crusted lips, seborrheic dermatitis CARDIOVASCULAR: regular rate and rhythm, 4/6 systolic ejection murmur PULMONARY: bilateral coarse breath sounds ABDOMINAL: soft, non-tender, non-distended, no rebound/guarding, bowel sounds present EXTREMITIES: BLE non pitting edema, L foot tarsal amputation, R foot 2nd digit amputation, RUE swelling SKIN: warm and dry, widespread small skin lesions scabbed over NEURO: CN II-XII grossly intact, no focal deficits, not speaking, not opening eyes to verbal stimulation Objective Labs 04/17/25 07:16 04/17/25 05:34 Labs: Laboratory Results - last 24 hr 04/15/25 04/17/25 04/17/25 11:20 05:34 07:16 WBC 8.5 RBC 3.35 L Hgb 9.0 L Hct 27.2 L MCV 81 MCH 26.9 MCHC 33.1 RDW Std Deviation 54.5 H Plt Count 55 L D Neut % (Auto) 66 Lymph % (Auto) 8 L Bond % (Auto) 4 Eos % (Auto) 21 H Baso % (Auto) 0 Neut # (Auto) 5.6 Lymph # (Auto) 0.7 L Bond # (Auto) 0.3 Eos # (Auto) 1.8 H Baso # (Auto) 0.0 Immature Gran # (Auto) 0.06 H Absolute Nucleated RBC 0.00 Immature Gran % 1 H Nucleated RBC % 0 Sodium 147 H Potassium 4.0 Chloride 118 H Carbon Dioxide 18.5 L Anion Gap 11 BUN 34 H Creatinine 0.6 Estim Creat Clear Calc 80.5 eGFR > 60 BUN/Creatinine Ratio 57 H Glucose 174 H Calculated Osmolality 304 H Calcium 8.8 Corrected Calcium 9.4 Phosphorus 2.1 L Magnesium 1.9 Total Bilirubin 0.8 AST 25 ALT 29 Alkaline Phosphatase 92 Total Protein 5.3 L Albumin 3.2 L Globulin 2.1 L Albumin/Globulin Ratio 1.5 Vitamin B12 1478 H Folate 8.28 Random Vancomycin 15.2 Hepatitis A IgM Ab Non Reactive Hep Bs Antigen Non Reactive Hep B Core IgM Ab Non Reactive Hepatitis C Antibody Non Reactive Misc Test Result Platelets confirmed ABG Interpretation ABG results: 04/11/25 04/14/25 21:53 23:37 ABG pH 7.29 L 7.47 H ABG pCO2 53 H 30 L ABG pO2 90 61 L ABG HCO3 25 21 ABG O2 Saturation 97 94 ABG Base Excess -2 -2 Quality Measures Quality Measures VTE prophylaxis Advance care planning discussed with:: child Assessment & Plan Assessment Current Active Medications: Generic Name Dose Route Start Last Admin Trade Name Freq PRN Reason Stop Dose Admin Dextrose 50 ml 04/12/25 00:08 04/12/25 12:20 Dextrose 50%-Water Inj 50 Ml Syringe IV 05/12/25 00:07 50 ml Q15MIN PRN Administration BG <50 OR BG <70 & pt unresponsive Enoxaparin Sodium 40 mg 04/12/25 21:00 04/13/25 08:52 Enoxaparin Sod Inj 40 Mg/0.4 Ml Syringe SC 04/26/25 20:59 40 mg On Hold: 04/14/25 07:01 QDAY HARPER Administration Glucagon 1 mg 04/12/25 00:08 Glucagon Inj 1 Mg Vial IM Q15MIN PRN BG <70, and no IV access Metronidazole 500 mg in 100 mls @ 200 mls/hr 04/14/25 08:47 04/17/25 13:56 Flagyl 500 Mg Iv IV 04/21/25 08:46 200 mls/hr Q8HR HARPER Administration Cefepime HCl 2 gm/ Sodium 50 mls @ 100 mls/hr 04/14/25 15:11 04/17/25 13:54 Chloride IV 04/21/25 15:10 100 mls/hr Q8HR HARPER Administration Multivitamins/Minerals 10 ml/ 2,015 mls @ 83 mls/hr 04/16/25 18:00 10/12/25 17:26 Potassium Phosphate 15 mmol/ IV 04/17/25 17:59 83 mls/hr Amino Acids .Q24H ONE Administration Vancomycin/Sodium Chloride 100 mls @ 120 mls/hr 04/16/25 10:00 04/17/25 09:55 Vancomycin/Ns 500 Mg Ivpb IV 04/23/25 09:59 120 mls/hr QDAY@1000 HARPER Administration Multivitamins/Minerals 10 ml/ 2,024 mls @ 83.3 mls/hr 04/17/25 18:00 Potassium Phosphate 30 mmol/ IV 04/18/25 17:59 Magnesium Sulfate 2 gm/ Amino QDAY@1800 HARPER Acids Insulin Human Lispro 0 unit 04/16/25 18:00 04/17/25 11:39 Insulin Lispro (Admelog) 1 Unit/0.01 Ml Unit SC 05/16/25 17:59 1 unit Q6HR HARPER Administration Protocol Levetiracetam 1,000 mg 04/12/25 21:00 04/17/25 09:05 Levetiracetam Inj 100 Mg/Ml Vial 5ml IVP 05/12/25 20:59 1,000 mg Q12HR HARPER Administration Multi-Ingredient Ointment 0 oz 04/12/25 12:30 04/17/25 13:58 Min Oil/Pet,White (Eucerin) Cr 16 Oz Btl TOP 05/12/25 12:29 1 appln DAILY HARPER Administration Ondansetron HCl 4 mg 04/11/25 22:23 Ondansetron Inj 2 Mg/Ml Inj 2 Ml IVP 05/11/25 22:22 Q6H PRN NAUSEA OR VOMITING Protocol Pantoprazole Sodium 40 mg 04/12/25 10:30 04/17/25 09:06 Pantoprazole Inj 40 Mg Vial IVP 05/12/25 10:29 40 mg QDAY HARPER Administration Pharmacy Consult 1 each 04/12/25 09:00 Vancomycin Pharmacy To Dose 1 Each Each IV 05/12/25 08:59 QDAY PRN RX Sodium Chloride 4 ml 04/15/25 13:00 04/17/25 12:23 Sodium Cl Rt Mere 3% 4 Ml Nebu (Non-Formulary) INH 05/15/25 12:59 4 ml Q6HRRT HARPER Administration Terbinafine HCl 2 gm 04/11/25 23:00 04/17/25 13:58 Terbinafine Hcl Cr 1% 12 Gm Tube TOP 05/11/25 22:59 2 gm TID HARPER Administration Plan Jill Holden 69F pmhx significant for primary hypertension, NIDDM2, CAD s/p CABG, hx of CVA, seizure disorder, age-related dementia, left diabetic foot metatarsal amputation, right foot second digit amputation and COPD, who presented to [facility] ED for acute encephalopathy, initially admitted to ICU for distributive shock from unknown source requiring pressor support and downgraded to floors on 04/13. #Distributive shock and #Acute infectious encephalopathy 2/ #L Base PNA, likely aspiration with gram-negative versus anaerobic bacteria #Hypothermia #RUE swelling Patient presented obtunded with AMS, BP 79/48 MAP 51-52, HR 46, temp 84.7, WBC 2.2. Directly admitted to ICU requiring dopamine and Levophed pressors. Eventually weaned off and downgraded 04/13. Per ICU, mentation has improved since admission following broad spectrum abx and fluid resuscitation. UA unremarkable, lactic acid 0.9 on admission. Lipase 115. Ammonia 37. CRP neg, ESR 55. BCx 1/[address] Head no acute processes. CTAP showed L base PNA, consider aspiration PNA, R upper lobe pulmonary nodules, multiple subcentimeter axillary lymph nodes, small b/l pleural effusions, significant thickening of gastric mucosa, abundant stool in rectosigmoid but no bowel obstruction, rectal wall thickening, consider proctitis, severe osteopenia Ddx: likely septic from L PNA, possible proctitis, gastritis, vs osteomyelitis as patient improved with fluids and abx. Less likely cardiogenic as patient condition has improved off pressors without continued ionotropic support. Ceftriaxone (04/13-04/14). Repeat BCx NGTD On 04/15/2025, patient's clinical condition deteriorated significantly; she was obtunded, and only lifted head and looked towards people after significant stimulation; patient's family was informed about deteriorating clinical state. NG tube placement unsuccessful due to bleeding, and deep suction cannot be done due to low platelet count. 04/15 repeat CXR no improvement in diffuse significant L lung PNA RUE swelling noted following PPN initiation, and RUE US negative for DVT Plan: - Continue vancomycin (04/11- ), metronidazole (04/11, 04/14 - ), cefepime (04/14- - Chest physiotherapy on board - Given poor PO intake, PPN started (04/15- - Pulmonology consulted, recs appreciated: no bronchoscopy as family refused, recommend to transfuse platelets and insert NG tube vs PEG if NG cannot be placed - NG tube inserted 04/17 - As platelet increasing, will hold off on consulting heme/onc - F/u sputum Cx #Severe thrombocytopenia #Anemia of chronic disease On admission Hgb platelets 34, on 04/15/2025, count was 29. Peripheral smear shows normocytic normochronic anemia with normal serium iron and TIBC, consistent with anemia of chronic disease, severe thrombocytopenia, and mild neutropenia. Vitals remains stable at this time. 04/15 liver ultrasound shows normal gallbladder, normal blood, bile duct, mild hepatomegaly, partial visualization of right pleural fluid. B12 1400, folate wnl, HIV and hep neg, retic count 0.8, LDH 277 Ddx for severe thrombocytopenia: MDS vs infection vs liver disease vs medication induced vs autoimmune Plan: - Trend CBC - F/u peripheral blood smear, DONNIE, thiamine, Legionella, valley fever levels for thrombocytopenia workup - No platelet transfusion at this time as patient is hemodynamically stable with blood pressure holding and HR wnl, consider platelet transfusion if platelet becomes hemodynamically unstable - DVT prophylaxis Lovenox held #Proctitis #Gastritis Patient poor historian, on admission replies yes to pain however when prompted, reports yes to all bodily pain. Unable to localize. Per CTAP imaging as above. Plan: - Continue abx as above - IV pantoprazole 40 mg QD #R upper lobe pulmonary nodules #Multiple subcentimeter axillary lymph nodes Findings CTAP as above. No history of cancer per chart review. Plan: - Abx as above - Recommend to follow up outpatient for further management #Bradycardia -improved #Moderate aortic stenosis #Essential HTN Patient presented with HR 46 on admission. Resolved following resolution of hypothermia, fluid resuscitation and abx. TSH wnl 2.73, 04/12 TTE: Normal left ventricular size and function. Mild LVH. Stage I diastolic dysfunction. Estimated EF 60-65%. Normal RV size and function. RVSP 40 mmHg with RAP 3. Moderate AV stenosis, mean gradient 31 mmHg, vmax 3.7 to 3.8m/s. MELE 1 sq cm. Mild thickened MV leaflets. Mild MR, AI and TR. Compared to prior study of 06/24/24- increased velocities. Likely 2/2 infectious etiology vs heart block. Plan: - Cardiology consulted, recs appreciated: likely 2/2 hypothermia - Telemetry for cardiac monitoring - Keep K>4 and Mg>2 at all times - F/u cortisol #Electrolyte abnormalities #Hypernatremia, improving #Hypokalemia, resolved #Hyperchloremia, improving #Hypobicarbinemia, improving #Hypophosphatemia, resolved #Hypomagnesemia, resolved #Hypocalcemia, resolved On admission, Na 155, K 2.4, Cl 129, bicarb 18.5, glucose 65, Ca 7.0, phos 2.3, Mg 1.1. s/p D5W in ICU Plan: - Recheck and replete as necessary - Consider further D5W if Na continues to uptrend, at this time PPN should be sufficient #NIDDM2 #Hx of L diabetic foot tarsal amputation #Hx of osteomyelitis of R foot distal fourth metatarsal and proximal phalanx fourth digit #Hx of R big toe abscess s/p I&D of R big toe and 2nd toe amputation (12/04/24) Admission A1c 8.1. Per med rec takes metformin 1g BID. Possible osteomyelitis as source of distributive shock. Plan: - SSI in place #Hx of seizures Per history. On home Keppra 1g BID. Unknown when last seizure occurred. Plan: - Continue home Keppra 1g BID - Consider ordering EEG and/or consulting neurology if encephalopathy worsens #Diffuse excoriations #Tinea capitis In ICU initially some concern for scabies, and per son, patient received permethrin and developed skin lesions. Diffuse crusted rash over forehead. Patient continues to scratch however likely 2/2 allergy to permethrin. Plan: - Terbinafine topical 2g TID Hospital management: Lines: PIV Diet: Blenderized Puree, PPN Bowel: None GI prophylaxis: IV pantoprazole 40 mg QD DVT prophylaxis: Lovenox held due to continuing severe thrombocytopenia Disposition: tele for IV abx CODE STATUS: FULL CODE This case was discussed with my attending physician, Dr. Mcintosh and PGY-2 Dr Gunn. Linda Marsh, DO Internal Medicine PGY-1 Attending Provider Attestation/Addendum I have discussed and was present for the essential components of the history, physical examination, diagnosis, and treatment plan with the resident. I agree with the patient's care as documented by the resident and amended herein by me. Jamir Mcintosh DO. Although this document has been carefully reviewed, there may still be some phonetic and other typographical errors. These errors are purely grammatical due to imperfections in the software program and should not be construed in any way to compromise the substance of the patient's medical care during this visit. Patient seen and evaluated this AM. No acute events overnight, temperature 96.9 this morning, pulse 56, patient on 2 L nasal cannula, SpO2 100%. Patient opening her eyes however still not responsive to questions or commands, significant labs include a WBC 8.5, hemoglobin stable at 9, platelets of uptrend to 55, sodium 147, potassium 4, chloride 118, bicarb 18.5, BUN 34 and creatinine 0.6. Blood cultures NGTD, cocci IgM negative. Today we will continue broad- spectrum antibiotics for that significant left lung pneumonia with vancomycin, cefepime and Flagyl, bronchoscopy was considered however the patient's son who is the patient's decision maker has declined the procedure stating it was too invasive. Patient was on PPN however we will transition to enteral feeding today via NG tube which was inserted today. Will continue to monitor closely, discharge pending further clinical improvement.
[2025-04-17 14:40] LABS: Cocci Serology, IgG Negative (Negative)
[2025-04-17] MEDS: POT PHOS 15 mMol in NS 250 ML 15 MMOL/250 ML BAG 62.5 MMOL IV ×2 (15:06→19:21)
--- NOTE | 2025-04-17 15:21 | PC.DIETICIAN ---
Nutrition prescription 1. Glucerna 1.2 at 20 ml/hr via NG tube by pump. Advance 10 ml every 12 hrs to goal rate of 60 ml/hr x 24 hrs. If no IV fluids, water flushes of 25 ml/hr (or per MD). 2. Continue with Thiamine 100mg/day and Multivitamins/Minerals. 3. Daily labs for P, K, and Mg; replace as needed.
--- NOTE | 2025-04-17 15:26 | PC.SS ---
Rounding Note: Plan is to begin tube feeds today. Patient in possession of NG tube. Patient receiving antibiotics.
[2025-04-17] MEDS: POTASSIUM PHOS IV (17:58)
[2025-04-17] MEDS: MULTIVITAMIN IV (17:58)
[2025-04-17] MEDS: MAGNESIUM SULF IV (17:58)
[2025-04-17] MEDS: [UNRECOGNIZED DRUG - OTHER] IV (17:58)
[2025-04-18] VITALS (10 sets, daily range): BP systolic 123–156; BP diastolic 60–84; PULSE 49–67; RESP 17–24; TEMP 35.7–36.6; O2SAT 92–100; BMI 23.8
[2025-04-18] MEDS: INSULIN LISPRO (AdmeLOG) 1 UNIT/0.01 ML UNIT SC ×5 (00:29→23:49)
[2025-04-18] MEDS: SODIUM CL RT SOL 3% 4 ML NEBU (NON-FORMULARY) INH ×4 (00:47→19:08)
[2025-04-18] MEDS: metroNIDAZOLE/NS 500 MG IVPB 500 MG/100 ML BAG 200 MG IV ×3 (05:48→21:14)
[2025-04-18] MEDS: CEFEPIME INJ 2 GM in SODIUM CHLORIDE 0.9% (Popper) 50 ML IV ×3 (05:48→21:14)
[2025-04-18] MEDS: TERBINAFINE HCL 1% 2 GM TOP ×3 (05:50→21:15)
[2025-04-18 06:13] LABS: Basophils # (Auto) 0.0 Thou/mm3 (0.0-0.2); Basophils % (Auto) 0 % (0-2.5); Eosinophils # (Auto) 1.8 Thou/mm3 (0.0-0.5); Eosinophils % (Auto) 22 % (0-10); Hematocrit 29.6 % (36.0-46.0); Hemoglobin 9.6 g/dL (12.0-16.0); Immature Granulocytes Auto 0.04 Thou/mm3 (0.00-0.00); Lymphocytes # (Auto) 0.7 Thou/mm3 (1.0-4.8); Lymphocytes % (Auto) 9 % (10-50); Mean Corpuscular HGB Conc 32.4 g/dl (31.0-37.0); Mean Corpuscular Hemoglobin 26.5 pg (25.0-35.0); Mean Corpuscular Volume 82 fL (80-100); Monocytes # (Auto) 0.5 Thou/mm3 (0.0-0.8); Monocytes % (Auto) 6 % (0-12); Neutrophils # (Auto) 5.2 Thou/mm3 (1.8-7.7); Neutrophils % (Auto) 62 % (37-80); Nucleated Red Blood Cell # 0.00 Thou/mm3 (0.00-0.00); Nucleated Red Blood Cell % 0 /100 WBC (0); RDW Standard Deviation 55.7 fL (36.4-46.3); Red Blood Count 3.62 Miln/mm3 (4.00-5.20); White Blood Count 8.4 Thou/mm3 (3.6-11.0)
[2025-04-18 06:16] LABS: Platelet Count 66 Thou/mm3 (140-440)
[2025-04-18 06:28] LABS: Alanine Aminotransferase 23 U/L (10-49); Albumin, Serum 3.2 gm/dL (3.4-4.8); Albumin/Globulin Ratio 1.5 (1.2-2.2); Alkaline Phosphatase 94 U/L (46-116); Anion Gap 11 (7-16); Aspartate Amino Transferase 28 U/L (0-34); BUN/Creatinine Ratio 68 Ratio (12-20); Bilirubin,Total 0.5 mg/dL (0.3-1.2); Blood Urea Nitrogen 41 mg/dL (9-23); Calcium 8.4 mg/dL (8.3-10.6); Calcium (Corrected) 9.0 mg/dL (8.5-10.1); Carbon Dioxide 17.5 mMol/L (20.0-31.0); Chloride 117 mMol/L (98-107); Creatinine (Component) 0.6 mg/dL (0.6-1.3); Estimated Creatinine Clearance 80.5 mL/min (>60); Globulin 2.2 gm/dL (2.3-3.5); Glucose 247 mg/dL (74-106); Magnesium 2.0 mg/dL (1.6-2.6); Osmolality,Calculated 306 (275-295); Phosphorous 3.4 mg/dL (2.4-5.1); Potassium 4.7 mMol/L (3.4-5.1); Sodium 145 mMol/L (136-145); Total Protein 5.4 gm/dL (5.7-8.2); eGFR > 60 See Note
[2025-04-18 08:08] LABS: Base Excess, Venous -7 (-3-3); O2 Saturation, Venous 99 % (96-97); PCO2, Venous 31 mmHg (36-56); PO2, Venous 108 mmHg (15-58); pH, Venous 7.36 (7.33-7.66)
[2025-04-18] MEDS: FOLIC ACID 1 MG TABLET NG (09:01)
[2025-04-18] MEDS: levETIRAcetam INJ 100 MG/ML VIAL 5ML 1000 MG IVP ×2 (09:01→20:31)
[2025-04-18] MEDS: MULTIVITAMINS TABLET 1 TAB NG (09:01)
[2025-04-18] MEDS: THIAMINE 100 MG TABLET NG (09:01)
[2025-04-18] MEDS: MIN OIL/PET,WHITE (Eucerin) CR 16 OZ BTL TOP (09:04)
[2025-04-18] MEDS: VANCOMYCIN/NS 500 MG IVPB 100 ML 120 MG IV (10:08)
--- NOTE | 2025-04-18 10:21 | PC.NURSE ---
Rectal temp checked 96.1. Applied warm blanckets. Dr. Gunn aware.
[2025-04-18 11:43] LABS: Slide Review Platelets confirmed
--- NOTE | 2025-04-18 13:38 | ESPR_ITS ---
<Statement entered by Keaton Baltazar MD - 04/18/25 17:41> I have reviewed the note and agree with the resident's assessment & plan with exceptions as below. I have personally reviewed labs, imaging, home meds/prior records, examined the patient, formulated and discussed management plan with my attending Patient was seen and evaluated bedside this morning. No acute overnight events. Patient today was doing significantly better and she was more awake and alert today. She was able to trace left her eyes and was moving her extremities. Overnight she dropped to the low 90s, but otherwise has been oxygenating well. Temperature is still labile therefore still doing warming measures and Laverne hugger as needed. Will continue of IV antibiotics for now and discontinue PPN today as has been tolerating tube feeds. Keaton Baltazar PGY2 Disclaimer: Even though this this note was dictated by speech recognition and even though it was carefully revised there may still be minor errors in body wirer due to voice recognition software. Documentation for date of: 04/18/25 Subjective Subjective Interval history: Overnight, patient desaturated to 90 to 94% however no adjustments in oxygen made and patient is currently saturating 99% on 2 L. Yesterday afternoon, patient ruled out for other and is off Laverne hugger this a.m. Patient seen examined at bedside. Patient appears clinically much improved since yesterday, more alert and able to track as well as shake head yes to some abdominal pain. Able to lift upper extremities on instruction, however still not speaking. Labs and vitals reviewed. SBP 141/55. Heart rate 50s to 60s. Tachypneic in the low 20s. Saturating 98% on 2 L. Hemoglobin stable 9.6, platelets increased from 55 to 66. Bicarb decreased from 18.5 to 17.5. BUN slowly uptrending from 34 to 41 today. At noon, patient's temperature noted to be 96.1 and heart rate 49-51. Continue antibiotics vancomycin, metronidazole cefepime. Discontinue PPN and continue Glucerna feeds with goal rate of 60 mL/h. Laverne hugger as necessary. Exam Vital Signs Temp Pulse Resp BP Pulse Ox O2 Del Method O2 Flow Rate 96.2 F L 60 21 H 123/84 99 Nasal Cannula 2 04/18/25 12:00 04/18/25 12:00 04/18/25 12:00 04/18/25 12:00 04/18/25 12:00 04/18/25 12:00 04/18/25 12:00 FiO2 62 04/16/25 07:43 Narrative Exam GENERAL: no acute distress, does not speak, unable to assess orientation, thin and frail HEENT: mucous membranes dry, bilateral sclera anicteric, crusted lips, seborrheic dermatitis CARDIOVASCULAR: regular rate and rhythm, 4/6 systolic ejection murmur PULMONARY: bilateral diminished and coarse breath sounds ABDOMINAL: soft, non-tender, non-distended, no rebound/guarding, bowel sounds present EXTREMITIES: BLE non pitting edema, L foot tarsal amputation, R foot 2nd digit amputation, RUE swelling SKIN: warm and dry, widespread small skin lesions scabbed over NEURO: CN II-XII grossly intact, not speaking, opening eyes to verbal stimulation and tracking well Objective Labs 04/19/25 05:10 04/19/25 05:10 Labs: Laboratory Results - last 24 hr 04/15/25 04/18/25 04/18/25 09:10 05:10 08:00 WBC 8.4 RBC 3.62 L Hgb 9.6 L Hct 29.6 L MCV 82 MCH 26.5 MCHC 32.4 RDW Std Deviation 55.7 H Plt Count 66 L Neut % (Auto) 62 Lymph % (Auto) 9 L Summers % (Auto) 6 Eos % (Auto) 22 H Baso % (Auto) 0 Neut # (Auto) 5.2 Lymph # (Auto) 0.7 L Summers # (Auto) 0.5 Eos # (Auto) 1.8 H Baso # (Auto) 0.0 Immature Gran # (Auto) 0.04 H Absolute Nucleated RBC 0.00 Immature Gran % 1 H Nucleated RBC % 0 VBG pH 7.36 VBG pCO2 31 L VBG pO2 108 H VBG O2 Sat (Ca) 99 H VBG Base Excess -7 L Sodium 145 Potassium 4.7 D Chloride 117 H Carbon Dioxide 17.5 L Anion Gap 11 BUN 41 H Creatinine 0.6 Estim Creat Clear Calc 80.5 eGFR > 60 BUN/Creatinine Ratio 68 H Glucose 247 H D Calculated Osmolality 306 H Calcium 8.4 Corrected Calcium 9.0 Phosphorus 3.4 Magnesium 2.0 Total Bilirubin 0.5 AST 28 ALT 23 Alkaline Phosphatase 94 Total Protein 5.4 L Albumin 3.2 L Globulin 2.2 L Albumin/Globulin Ratio 1.5 Coccidioides IgG Ab Negative Misc Test Result Platelets confirmed ABG Interpretation ABG results: 04/11/25 04/14/25 04/18/25 21:53 23:37 08:00 ABG pH 7.29 L 7.47 H ABG pCO2 53 H 30 L ABG pO2 90 61 L ABG HCO3 25 21 ABG O2 Saturation 97 94 ABG Base Excess -2 -2 VBG pH 7.36 VBG pCO2 31 L VBG pO2 108 H VBG Base Excess -7 L Quality Measures Quality Measures VTE prophylaxis Advance care planning discussed with:: other Assessment & Plan Assessment Current Active Medications: Generic Name Dose Route Start Last Admin Trade Name Freq PRN Reason Stop Dose Admin Dextrose 50 ml 04/12/25 00:08 04/12/25 12:20 Dextrose 50%-Water Inj 50 Ml Syringe IV 05/12/25 00:07 50 ml Q15MIN PRN Administration BG <50 OR BG <70 & pt unresponsive Enoxaparin Sodium 40 mg 04/12/25 21:00 04/13/25 08:52 Enoxaparin Sod Inj 40 Mg/0.4 Ml Syringe SC 04/26/25 20:59 40 mg On Hold: 04/14/25 07:01 QDAY HARPER Administration Folic Acid 1 mg 04/18/25 09:00 04/18/25 09:01 Folic Acid 1 Mg Tablet NG 05/18/25 08:59 1 mg QDAY HARPER Administration Glucagon 1 mg 04/12/25 00:08 Glucagon Inj 1 Mg Vial IM Q15MIN PRN BG <70, and no IV access Metronidazole 500 mg in 100 mls @ 200 mls/hr 04/14/25 08:47 04/18/25 05:48 Flagyl 500 Mg Iv IV 04/21/25 08:46 200 mls/hr Q8HR HARPER Administration Cefepime HCl 2 gm/ Sodium 50 mls @ 100 mls/hr 04/14/25 15:11 04/18/25 05:48 Chloride IV 04/21/25 15:10 100 mls/hr Q8HR HARPER Administration Vancomycin/Sodium Chloride 100 mls @ 120 mls/hr 04/16/25 10:00 04/18/25 10:08 Vancomycin/Ns 500 Mg Ivpb IV 04/23/25 09:59 120 mls/hr QDAY@1000 HARPER Administration Multivitamins/Minerals 10 ml/ 2,024 mls @ 83.3 mls/hr 04/17/25 18:00 04/17/25 17:58 Potassium Phosphate 30 mmol/ IV 04/18/25 17:59 83.3 mls/hr Magnesium Sulfate 2 gm/ Amino QDAY@1800 HARPER Administration Acids Insulin Human Lispro 0 unit 04/16/25 18:00 04/18/25 12:07 Insulin Lispro (Admelog) 1 Unit/0.01 Ml Unit SC 05/16/25 17:59 3 unit Q6HR HARPER Administration Protocol Levetiracetam 1,000 mg 04/12/25 21:00 04/18/25 09:01 Levetiracetam Inj 100 Mg/Ml Vial 5ml IVP 05/12/25 20:59 1,000 mg Q12HR HARPER Administration Multi-Ingredient Ointment 0 oz 04/12/25 12:30 04/18/25 09:04 Min Oil/Pet,White (Eucerin) Cr 16 Oz Btl TOP 05/12/25 12:29 1 appln DAILY HARPER Administration Multivitamins 1 tab 04/18/25 09:00 04/18/25 09:01 Multivitamins Tablet NG 05/18/25 08:59 1 tab QDAY HARPER Administration Ondansetron HCl 4 mg 04/11/25 22:23 Ondansetron Inj 2 Mg/Ml Inj 2 Ml IVP 05/11/25 22:22 Q6H PRN NAUSEA OR VOMITING Protocol Pantoprazole Sodium 40 mg 04/12/25 10:30 04/18/25 09:01 Pantoprazole Inj 40 Mg Vial IVP 05/12/25 10:29 40 mg QDAY HARPER Administration Pharmacy Consult 1 each 04/12/25 09:00 Vancomycin Pharmacy To Dose 1 Each Each IV 05/12/25 08:59 QDAY PRN RX Sodium Chloride 4 ml 04/15/25 13:00 04/18/25 00:47 Sodium Cl Rt Mere 3% 4 Ml Nebu (Non-Formulary) INH 05/15/25 12:59 4 ml Q6HRRT HARPER Administration Terbinafine HCl 2 gm 04/11/25 23:00 04/18/25 05:50 Terbinafine Hcl Cr 1% 12 Gm Tube TOP 05/11/25 22:59 2 gm TID HARPER Administration Thiamine HCl 100 mg 04/18/25 09:00 04/18/25 09:01 Thiamine 100 Mg Tablet NG 05/18/25 08:59 100 mg QDAY HARPER Administration Plan Jill Holden 69F pmhx significant for primary hypertension, NIDDM2, CAD s/p CABG, hx of CVA, seizure disorder, age-related dementia, left diabetic foot metatarsal amputation, right foot second digit amputation and COPD, who presented to [facility] ED for acute encephalopathy, initially admitted to ICU for distributive shock from unknown source requiring pressor support and downgraded to floors on 04/13. #Distributive shock and #Acute infectious encephalopathy / #L Base PNA, likely aspiration with gram-negative versus anaerobic bacteria #Hypothermia #RUE swelling 08/07 PPN Patient presented obtunded with AMS, BP 79/48 MAP 51-52, HR 46, temp 84.7, WBC 2.2. Directly admitted to ICU requiring dopamine and Levophed pressors. Eventually weaned off and downgraded 04/13. Per ICU, mentation has improved since admission following broad spectrum abx and fluid resuscitation. UA unremarkable, lactic acid 0.9 on admission. Lipase 115. Ammonia 37. CRP neg, ESR 55. BCx 1/[address] Head no acute processes. CTAP showed L base PNA, consider aspiration PNA, R upper lobe pulmonary nodules, multiple subcentimeter axillary lymph nodes, small b/l pleural effusions, significant thickening of gastric mucosa, abundant stool in rectosigmoid but no bowel obstruction, rectal wall thickening, consider proctitis, severe osteopenia Ddx: likely septic from L PNA, possible proctitis, gastritis, vs osteomyelitis as patient improved with fluids and abx. Less likely cardiogenic as patient condition has improved off pressors without continued ionotropic support. Ceftriaxone (04/13-04/14). Repeat BCx NGTD On 04/15/2025, patient's clinical condition deteriorated significantly; she was obtunded, and only lifted head and looked towards people after significant stimulation; patient's family was informed about deteriorating clinical state. NG tube placement unsuccessful due to bleeding, and deep suction cannot be done due to low platelet count. 04/15 repeat CXR no improvement in diffuse significant L lung PNA RUE swelling noted following PPN initiation, and RUE US negative for DVT. PPN (04/15-04/18) Plan: - Continue vancomycin (04/11- ), metronidazole (04/11, 04/14 - ), cefepime (04/14- - Chest physiotherapy on board - Pulmonology consulted, recs appreciated: no bronchoscopy as family refused, recommend to transfuse platelets and insert NG tube vs PEG if NG cannot be placed - NG tube inserted 04/17 and Glucerna started at rate 30 mL/hr for now - Psychiatric Social Worker consulted, recs appreciated: Glucerna 1.2 at 30 mL/hr via NG tube by pump, advance 10 mL every 12 h to goal rate of 60 mL/hr x24h. Continue thiamine 100 mg QD and multivitamins/minerals - As platelet increasing, will hold off on consulting heme/onc - F/u sputum Cx #Severe thrombocytopenia #Anemia of chronic disease On admission Hgb platelets 34, on 04/15/2025, count was 29. Peripheral smear shows normocytic normochronic anemia with normal serium iron and TIBC, consistent with anemia of chronic disease, severe thrombocytopenia, and mild neutropenia. Vitals remains stable at this time. 04/15 liver ultrasound shows normal gallbladder, normal blood, bile duct, mild hepatomegaly, partial visualization of right pleural fluid. B12 1400, folate wnl, HIV and hep neg, retic count 0.8, LDH 277 Ddx for severe thrombocytopenia: MDS vs infection vs liver disease vs medication induced vs autoimmune Plan: - Trend CBC - F/u peripheral blood smear, DONNIE, thiamine, Legionella, valley fever levels for thrombocytopenia workup - No platelet transfusion at this time as patient is hemodynamically stable with blood pressure holding and HR wnl, consider platelet transfusion if platelet becomes hemodynamically unstable - DVT prophylaxis Lovenox held #Proctitis #Gastritis Patient poor historian, on admission replies yes to pain however when prompted, reports yes to all bodily pain. Unable to localize. Per CTAP imaging as above. Plan: - Continue abx as above - IV pantoprazole 40 mg QD #R upper lobe pulmonary nodules #Multiple subcentimeter axillary lymph nodes Findings CTAP as above. No history of cancer per chart review. Plan: - Abx as above - Recommend to follow up outpatient for further management #Bradycardia -improved #Moderate aortic stenosis #Essential HTN Patient presented with HR 46 on admission. Resolved following resolution of hypothermia, fluid resuscitation and abx. TSH wnl 2.73, 04/12 TTE: Normal left ventricular size and function. Mild LVH. Stage I diastolic dysfunction. Estimated EF 60-65%. Normal RV size and function. RVSP 40 mmHg with RAP 3. Moderate AV stenosis, mean gradient 31 mmHg, vmax 3.7 to 3.8m/s. MELE 1 sq cm. Mild thickened MV leaflets. Mild MR, AI and TR. Compared to prior study of 06/24/24- increased velocities. Likely 2/2 infectious etiology vs heart block. Plan: - Cardiology consulted, recs appreciated: likely 2/2 hypothermia, unlikely good candidate for TAVR for or pacemaker for first degree AV block due to patient being asymptomatic at this time - Telemetry for cardiac monitoring - Keep K>4 and Mg>2 at all times - F/u cortisol #Electrolyte abnormalities #Hypernatremia, improving #Hypokalemia, resolved #Hyperchloremia, improving #Hypobicarbinemia, improving #Hypophosphatemia, resolved #Hypomagnesemia, resolved #Hypocalcemia, resolved On admission, Na 155, K 2.4, Cl 129, bicarb 18.5, glucose 65, Ca 7.0, phos 2.3, Mg 1.1. s/p D5W in ICU Plan: - Recheck and replete as necessary - Consider further D5W if Na continues to uptrend, at this time PPN should be sufficient #NIDDM2 #Hx of L diabetic foot tarsal amputation #Hx of osteomyelitis of R foot distal fourth metatarsal and proximal phalanx fourth digit #Hx of R big toe abscess s/p I&D of R big toe and 2nd toe amputation (12/04/24) Admission A1c 8.1. Per med rec takes metformin 1g BID. Possible osteomyelitis as source of distributive shock. Plan: - SSI in place #Hx of seizures Per history. On home Keppra 1g BID. Unknown when last seizure occurred. Plan: - Continue home Keppra 1g BID - Consider ordering EEG and/or consulting neurology if encephalopathy worsens #Diffuse excoriations #Tinea capitis In ICU initially some concern for scabies, and per son, patient received permethrin and developed skin lesions. Diffuse crusted rash over forehead. Patient continues to scratch however likely 2/2 allergy to permethrin. Plan: - Terbinafine topical 2g TID Hospital management: Lines: PIV Diet: Blenderized Puree, NG Glucerna feeds Bowel: None GI prophylaxis: IV pantoprazole 40 mg QD DVT prophylaxis: Lovenox held due to continuing severe thrombocytopenia Disposition: tele for IV abx and improvement in hypothermia CODE STATUS: FULL CODE This case was discussed with my attending physician, Dr. Lin and PGY-2 Dr Gunn. Linda Marsh DO Internal Medicine PGY-1 Attending Provider Attestation/Addendum I have examined the patient, reviewed labs and imaging findings, discussed the case with the resident(s), and reviewed entered orders. I agree with the plan of care as outlined in this note. Dr. Delia MD
--- NOTE | 2025-04-18 16:44 | ESPR_ITS ---
Documentation for date of: 04/18/25 Subjective Subjective Interval history: Patient was seen and assessed at bedside. Continues to be confused but improving, continues to be tracking unable to move extremities. BP 134/67 this morning, heart rate continues to be in upper 50s from low 60s. No longer hypothermic. Sinus bradycardia with prolonged MN interval on telemetry. Hemoglobin stable, 9.6. Platelets 66,000. Na 145, potassium 4.7, magnesium 2.0. Transitioned from PPN, NG tube placed yesterday evening, tolerating feeds well. Exam Vital Signs Temp Pulse Resp BP Pulse Ox O2 Del Method O2 Flow Rate 96.2 F L 65 23 H 123/84 99 Nasal Cannula 2 04/18/25 12:00 04/18/25 13:46 04/18/25 13:46 04/18/25 12:00 04/18/25 13:46 04/18/25 12:00 04/18/25 13:46 FiO2 62 04/16/25 07:43 Narrative Exam Physical Exam General: Awake and in no acute distress. Not conversational. Confused. Unable to answer questions appropriately. Cachectic. HEENT: Normocephalic, atraumatic, mucous membranes dry. Upper dentures, missing bottom teeth. Heart: Regular rate and rhythm, normal S1 and S2, 4/5 systolic murmur radiating to carotids. Lungs: Clear to auscultation with no wheezing or crackles. Abdomen: Soft, nondistended, nontender, positive bowel sounds. No guarding or rebound tenderness. Neurologic: Alert and oriented x0. Unable to assess as patient is noncompliant with commands. Extremities: No edema. Left foot transmetatarsal amputation. Right foot second digit amputation. Skin: No rash or ecchymoses. Tinea capitis at frontal scalp. Petechial lesions bilateral lower extremities. Very dry skin. Objective Labs 04/20/25 04:54 04/19/25 05:10 Labs: Laboratory Results - last 24 hr 04/18/25 04/18/25 05:10 08:00 WBC 8.4 RBC 3.62 L Hgb 9.6 L Hct 29.6 L MCV 82 MCH 26.5 MCHC 32.4 RDW Std Deviation 55.7 H Plt Count 66 L Neut % (Auto) 62 Lymph % (Auto) 9 L [place] % (Auto) 6 Eos % (Auto) 22 H Baso % (Auto) 0 Neut # (Auto) 5.2 Lymph # (Auto) 0.7 L [place] # (Auto) 0.5 Eos # (Auto) 1.8 H Baso # (Auto) 0.0 Immature Gran # (Auto) 0.04 H Absolute Nucleated RBC 0.00 Immature Gran % 1 H Nucleated RBC % 0 VBG pH 7.36 VBG pCO2 31 L VBG pO2 108 H VBG O2 Sat (Ca) 99 H VBG Base Excess -7 L Sodium 145 Potassium 4.7 D Chloride 117 H Carbon Dioxide 17.5 L Anion Gap 11 BUN 41 H Creatinine 0.6 Estim Creat Clear Calc 80.5 eGFR > 60 BUN/Creatinine Ratio 68 H Glucose 247 H D Calculated Osmolality 306 H Calcium 8.4 Corrected Calcium 9.0 Phosphorus 3.4 Magnesium 2.0 Total Bilirubin 0.5 AST 28 ALT 23 Alkaline Phosphatase 94 Total Protein 5.4 L Albumin 3.2 L Globulin 2.2 L Albumin/Globulin Ratio 1.5 Misc Test Result Platelets confirmed ABG Interpretation ABG results: 04/11/25 04/14/25 04/18/25 21:53 23:37 08:00 ABG pH 7.29 L 7.47 H ABG pCO2 53 H 30 L ABG pO2 90 61 L ABG HCO3 25 21 ABG O2 Saturation 97 94 ABG Base Excess -2 -2 VBG pH 7.36 VBG pCO2 31 L VBG pO2 108 H VBG Base Excess -7 L Quality Measures Quality Measures VTE prophylaxis Advance care planning discussed with:: legal surragate Assessment & Plan Assessment Current Active Medications: Generic Name Dose Route Start Last Admin Trade Name Mion PRN Reason Stop Dose Admin Dextrose 50 ml 04/12/25 00:08 04/12/25 12:20 Dextrose 50%-Water Inj 50 Ml Syringe IV 05/12/25 00:07 50 ml Q15MIN PRN Administration BG <50 OR BG <70 & pt unresponsive Enoxaparin Sodium 40 mg 04/12/25 21:00 04/13/25 08:52 Enoxaparin Sod Inj 40 Mg/0.4 Ml Syringe SC 04/26/25 20:59 40 mg On Hold: 04/14/25 07:01 QDAY HARPER Administration Folic Acid 1 mg 04/18/25 09:00 04/18/25 09:01 Folic Acid 1 Mg Tablet NG 05/18/25 08:59 1 mg QDAY HARPER Administration Glucagon 1 mg 04/12/25 00:08 Glucagon Inj 1 Mg Vial IM Q15MIN PRN BG <70, and no IV access Metronidazole 500 mg in 100 mls @ 200 mls/hr 04/14/25 08:47 04/18/25 13:43 Flagyl 500 Mg Iv IV 04/21/25 08:46 200 mls/hr Q8HR HARPER Administration Cefepime HCl 2 gm/ Sodium 50 mls @ 100 mls/hr 04/14/25 15:11 04/18/25 13:42 Chloride IV 04/21/25 15:10 100 mls/hr Q8HR HARPER Administration Vancomycin/Sodium Chloride 100 mls @ 120 mls/hr 04/16/25 10:00 04/18/25 10:08 Vancomycin/Ns 500 Mg Ivpb IV 04/23/25 09:59 120 mls/hr QDAY@1000 HARPER Administration Insulin Human Lispro 0 unit 04/16/25 18:00 04/18/25 12:07 Insulin Lispro (Admelog) 1 Unit/0.01 Ml Unit SC 05/16/25 17:59 3 unit Q6HR HARPER Administration Protocol Levetiracetam 1,000 mg 04/12/25 21:00 04/18/25 09:01 Levetiracetam Inj 100 Mg/Ml Vial 5ml IVP 05/12/25 20:59 1,000 mg Q12HR HARPER Administration Multi-Ingredient Ointment 0 oz 04/12/25 12:30 04/18/25 09:04 Min Oil/Pet,White (Eucerin) Cr 16 Oz Btl TOP 05/12/25 12:29 1 appln DAILY HARPER Administration Multivitamins 1 tab 04/18/25 09:00 04/18/25 09:01 Multivitamins Tablet NG 05/18/25 08:59 1 tab QDAY HARPER Administration Ondansetron HCl 4 mg 04/11/25 22:23 Ondansetron Inj 2 Mg/Ml Inj 2 Ml IVP 05/11/25 22:22 Q6H PRN NAUSEA OR VOMITING Protocol Pantoprazole Sodium 40 mg 04/12/25 10:30 04/18/25 09:01 Pantoprazole Inj 40 Mg Vial IVP 05/12/25 10:29 40 mg QDAY HARPER Administration Pharmacy Consult 1 each 04/12/25 09:00 Vancomycin Pharmacy To Dose 1 Each Each IV 05/12/25 08:59 QDAY PRN RX Sodium Chloride 4 ml 04/15/25 13:00 04/18/25 13:45 Sodium Cl Rt Mere 3% 4 Ml Nebu (Non-Formulary) INH 05/15/25 12:59 4 ml Q6HRRT HARPER Administration Terbinafine HCl 2 gm 04/11/25 23:00 04/18/25 14:36 Terbinafine Hcl Cr 1% 12 Gm Tube TOP 05/11/25 22:59 2 gm TID HARPER Administration Thiamine HCl 100 mg 04/18/25 09:00 04/18/25 09:01 Thiamine 100 Mg Tablet NG 05/18/25 08:59 100 mg QDAY HARPER Administration Plan Patient is a 69-year-old female with past medical history of CAD s/p CABG with history of previous multiple PCI, moderate aortic stenosis, CVA/stroke, seizure disorder with Keppra, essential hypertension, hyperlipidemia, baseline dementia, slurred speech, history of left transmetatarsal amputation with questionable PAD, history of fall with displaced intra-articular fracture of the left hip status post open reduction internal fixation in June 2024 was brought in to the emergency department of worsening altered mental status. Admitted to ICU for acute metabolic encephalopathy in setting of hypertonic hyponatremia and acute hypothermia. Cardiology consulted due to concern for cardiogenic shock given history of CAD and moderate aortic stenosis. #Distributive shock, likely septic or distributive, unlikely cardiogenic #Acute hypothermia #Bradycardia secondary to first-degree heart block #History of aortic stenosis, moderate #History of hypertension #History CVA #History of CAD status post CABG with history of previous multiple PCI Home meds include lisinopril 10 mg daily, aspirin 81 mg daily, Plavix 75 mg daily. On physical exam, auscultated 4/5 ejection systolic murmur radiating to carotids. TSH were normal, A1c was 8.1% in lipid profile showed total cholesterol of 123, HDL of 48 and LDL of 53. Chest x-ray with questionable left-sided pneumonia secondary to aspiration. CT chest abdominal with altered showed small bilateral pleural effusions along with significant thickening of gastric mucosa and some constipation. TTE 06/23/2024 showed normal LV size and function. Mild LVH. Stage I diastolic dysfunction. Estimated EF 60-65%. Normal RV size and function. Moderate AV stenosis, mean gradient 21mmHg, vmax 3.1 m/s. Mild thicken MVL. Midl MR, AI. Trace TR. Bradycardia likely secondary to severe hypothermia. Heart rate now improved to 70s to 80s with conservative treatment of hypothermia. TTE 04/12/25 showed normal left ventricular size and function. Mild LVH. Stage I diastolic dysfunction. Estimated EF 60-65%. Normal RV size and function. RVSP 40 mmHg with RAP 3. Moderate AV stenosis, mean gradient 31 mmHg, vmax 3.7 to 3.8m/s. MELE 1 sq cm. Mild thicken MV leaflets. Mild MR, AI and TR. Compared to prior study of 06/24/24- increased velocities. EKG 04/14 shows sinus bradycardia with first-degree AV block, MN 234, QTc 439. Plan: - Unlikely cardiogenic shock as patient only has moderate aortic stenosis with adequate flow. Likely distributive shock secondary to severe hypothermia or possible sepsis with underlying left lower lobe pneumonia. Patient was bradycardic along with hypotensive on admission which improved with rewarming with a Laverne hugger. - Even if the patient has severe aortic stenosis it is unlikely the patient will not be a candidate for TAVR given his multiple comorbidities along with her severe protein calorie malnutrition and will not have good outcome as she is unable to do any kind of rehab. Can consider TAVR for her eventually if her overall clinical status improves over the next few months - Heart rate improving with Laverne hugger. As above, EKG shows first-degree AV block however patient remains asymptomatic with no long pauses noted and is therefore not a candidate for pacemaker placement at this time. - IV hydralazine prn if SBP >180 as patient is NPO - Avoid beta blockers, CCB as patient is already bradycardic ? Stable off Levophed and dopamine. Monitor BP. #Hypernatremia #Acute hypokalemia, resolved #Hypomagnesemia # Hypophosphatemia ##Hypocalcemia, resolved Presented with potassium of 2.4 and magnesium 1.1. Overnight given total potassium chloride 40 mEq, magnesium 2 g, calcium gluconate x1. 04/12/2025: Potassium improved to 4.7 at midnight. Calcium improved to 8.7, phosphorus 2.6, magnesium 2.3. ?Keep potassium above 4 and magnesium above 2 - Feeding via NG tube, adjust sodium content if any. #Acute on chronic normocytic anemia #Protein calorie malnutrition Patient presented with altered mental status and acute metabolic encephalopathy, unclear etiology. Appears to have poor oral intake as the patient was also noted to have severely low albumin at 1.5 as well as total protein at 2.5. Hemoglobin 7.6. In setting of acute gastritis and severe malnutrition. BMI 19.6. ? NG tube feeds as above - Workup per primary team #[id number] type 2 diabetes #Hx of LT foot metatrasal amputation and RT foot 2nd digit amputation A1c 8.1. Home meds include metformin 1000 mg twice daily. ?SSI per primary team #Acute encephalopathy in setting of #Hypotonic hyponatremia, severe #Left base PNA, possibly aspiration #Right upper lobe pulmonary nodules #Bilateral pleural effusions, small #Pancytopenia #Proctitis, likely acute #Seizure disorder #Hyperlipidemia #Constipation Vs. bowel ileus #Tinea Capitis #Nasal lesion, possibly basal cell carcinoma #Axillary lymphadenopathy #Baseline dementia #History of questionable PAD with transmetatarsal amputation and right toe amputation #COPD Thank you for your consultation, please do not hesitate to reach out if you have any question or concern Patient plan of care was discussed with the attending physician, Dr. Castellanos. Kenisha Marsh, PGY-1 Attending Provider Attestation/Addendum I have personally seen and examined the patient separately on the above date of service and discussed the plan of care with the resident. I reviewed the resident Dr. Kenisha Marsh consultation progress note and agree with the resident findings and plan in the note above and have also edited the documentation to reflect my findings and plan. Jose Castellanos M.D. Interventional Cardiology
[2025-04-19] VITALS (12 sets, daily range): BP systolic 108–160; BP diastolic 54–79; PULSE 53–104; RESP 13–99; TEMP 36.1–36.6; O2SAT 94–100; BMI 24.5
[2025-04-19] MEDS: SODIUM CL RT SOL 3% 4 ML NEBU (NON-FORMULARY) INH ×4 (01:42→19:22)
[2025-04-19] MEDS: INSULIN LISPRO (AdmeLOG) 1 UNIT/0.01 ML UNIT SC ×3 (05:11→17:02)
[2025-04-19] MEDS: metroNIDAZOLE/NS 500 MG IVPB 500 MG/100 ML BAG 200 MG IV ×3 (05:11→21:31)
[2025-04-19] MEDS: CEFEPIME INJ 2 GM in SODIUM CHLORIDE 0.9% (Popper) 50 ML IV ×3 (05:11→22:45)
[2025-04-19] MEDS: TERBINAFINE HCL 1% 2 GM TOP (05:12)
[2025-04-19 06:02] LABS: Basophils # (Auto) 0.0 Thou/mm3 (0.0-0.2); Basophils % (Auto) 0 % (0-2.5); Eosinophils # (Auto) 2.5 Thou/mm3 (0.0-0.5); Eosinophils % (Auto) 27 % (0-10); Hematocrit 28.7 % (36.0-46.0); Hemoglobin 9.5 g/dL (12.0-16.0); Immature Granulocytes Auto 0.07 Thou/mm3 (0.00-0.00); Lymphocytes # (Auto) 0.8 Thou/mm3 (1.0-4.8); Lymphocytes % (Auto) 9 % (10-50); Mean Corpuscular HGB Conc 33.1 g/dl (31.0-37.0); Mean Corpuscular Hemoglobin 26.7 pg (25.0-35.0); Mean Corpuscular Volume 81 fL (80-100); Monocytes # (Auto) 0.6 Thou/mm3 (0.0-0.8); Monocytes % (Auto) 7 % (0-12); Neutrophils # (Auto) 5.2 Thou/mm3 (1.8-7.7); Neutrophils % (Auto) 57 % (37-80); Nucleated Red Blood Cell # 0.00 Thou/mm3 (0.00-0.00); Nucleated Red Blood Cell % 0 /100 WBC (0); Platelet Count 99 Thou/mm3 (140-440); RDW Standard Deviation 55.2 fL (36.4-46.3); Red Blood Count 3.56 Miln/mm3 (4.00-5.20); White Blood Count 9.2 Thou/mm3 (3.6-11.0)
[2025-04-19 06:16] LABS: Alanine Aminotransferase 17 U/L (10-49); Albumin, Serum 2.8 gm/dL (3.4-4.8); Albumin/Globulin Ratio 1.5 (1.2-2.2); Alkaline Phosphatase 104 U/L (46-116); Anion Gap 10 (7-16); Aspartate Amino Transferase 19 U/L (0-34); BUN/Creatinine Ratio 70 Ratio (12-20); Bilirubin,Total 0.4 mg/dL (0.3-1.2); Blood Urea Nitrogen 35 mg/dL (9-23); Calcium 8.3 mg/dL (8.3-10.6); Calcium (Corrected) 9.3 mg/dL (8.5-10.1); Carbon Dioxide 19.3 mMol/L (20.0-31.0); Chloride 118 mMol/L (98-107); Creatinine (Component) 0.5 mg/dL (0.6-1.3); Estimated Creatinine Clearance 96.6 mL/min (>60); Globulin 1.9 gm/dL (2.3-3.5); Glucose 235 mg/dL (74-106); Magnesium 2.0 mg/dL (1.6-2.6); Osmolality,Calculated 308 (275-295); Phosphorous 2.5 mg/dL (2.4-5.1); Potassium 4.6 mMol/L (3.4-5.1); Sodium 147 mMol/L (136-145); Total Protein 4.7 gm/dL (5.7-8.2); eGFR > 60 See Note
[2025-04-19] MEDS: levETIRAcetam INJ 100 MG/ML VIAL 5ML 1000 MG IVP ×2 (08:37→21:30)
[2025-04-19] MEDS: MULTIVITAMINS TABLET 1 TAB NG (08:37)
[2025-04-19] MEDS: THIAMINE 100 MG TABLET NG (08:37)
[2025-04-19] MEDS: FOLIC ACID 1 MG TABLET NG (08:38)
[2025-04-19] MEDS: MIN OIL/PET,WHITE (Eucerin) CR 16 OZ BTL TOP (08:38)
--- NOTE | 2025-04-19 09:01 | PD.RESPRO ---
Documentation for date of: 04/19/25 Subjective Subjective Interval history: Patient was seen and assessed at bedside. Continues to be confused however slowly improving every day. Tracking with her eyes and was able to deny any chest pain. Unable to obtain further review of systems. NG tube in place. Blood pressure continues to be elevated 160/79, 140-150s overnight. Heart rate in low 60s. Sinus rhythm with prolonged LA interval on telemetry. Hemoglobin stable at 9.5. Platelets continued to improve, consider restarting heparin DVT prophylaxis unless there is a concern for HIT. Potassium 4.6, magnesium 2.0. Creatinine 0.5. Exam Vital Signs Temp Pulse Resp BP Pulse Ox O2 Del Method O2 Flow Rate 97.2 F 54 L 13 121/60 100 Room Air 2 04/19/25 08:00 04/19/25 08:00 04/19/25 08:00 04/19/25 08:00 04/19/25 08:00 04/19/25 08:00 04/19/25 01:44 FiO2 62 04/16/25 07:43 Narrative Exam Physical Exam General: Awake and in no acute distress. Not conversational. Confused. Unable to answer questions appropriately. Cachectic. HEENT: Normocephalic, atraumatic, mucous membranes dry. Upper dentures, missing bottom teeth. NG tube in place. Heart: Regular rate and rhythm, normal S1 and S2, 4/5 systolic murmur radiating to carotids. Lungs: Clear to auscultation with no wheezing or crackles. Abdomen: Soft, nondistended, nontender, positive bowel sounds. No guarding or rebound tenderness. Neurologic: Alert and oriented x0. Unable to assess as patient is noncompliant with commands. Extremities: No edema. Left foot transmetatarsal amputation. Right foot second digit amputation. Skin: No rash or ecchymoses. Tinea capitis at frontal scalp. Petechial lesions bilateral lower extremities. Very dry skin. Objective Labs 04/20/25 04:54 04/19/25 05:10 Labs: Laboratory Results - last 24 hr 04/18/25 04/19/25 05:10 05:10 WBC 9.2 RBC 3.56 L Hgb 9.5 L Hct 28.7 L MCV 81 MCH 26.7 MCHC 33.1 RDW Std Deviation 55.2 H Plt Count 99 L D Neut % (Auto) 57 Lymph % (Auto) 9 L [place] % (Auto) 7 Eos % (Auto) 27 H Baso % (Auto) 0 Neut # (Auto) 5.2 Lymph # (Auto) 0.8 L [place] # (Auto) 0.6 Eos # (Auto) 2.5 H Baso # (Auto) 0.0 Immature Gran # (Auto) 0.07 H Absolute Nucleated RBC 0.00 Immature Gran % 1 H Nucleated RBC % 0 Sodium 147 H Potassium 4.6 Chloride 118 H Carbon Dioxide 19.3 L Anion Gap 10 BUN 35 H Creatinine 0.5 L Estim Creat Clear Calc 96.6 eGFR > 60 BUN/Creatinine Ratio 70 H Glucose 235 H Calculated Osmolality 308 H Calcium 8.3 Corrected Calcium 9.3 Phosphorus 2.5 Magnesium 2.0 Total Bilirubin 0.4 AST 19 ALT 17 Alkaline Phosphatase 104 Total Protein 4.7 L Albumin 2.8 L Globulin 1.9 L Albumin/Globulin Ratio 1.5 Misc Test Result Platelets confirmed ABG Interpretation ABG results: 04/11/25 04/14/25 04/18/25 21:53 23:37 08:00 ABG pH 7.29 L 7.47 H ABG pCO2 53 H 30 L ABG pO2 90 61 L ABG HCO3 25 21 ABG O2 Saturation 97 94 ABG Base Excess -2 -2 VBG pH 7.36 VBG pCO2 31 L VBG pO2 108 H VBG Base Excess -7 L Quality Measures Quality Measures VTE prophylaxis Advance care planning discussed with:: patient Assessment & Plan Assessment Current Active Medications: Generic Name Dose Route Start Last Admin Trade Name Mikq PRN Reason Stop Dose Admin Dextrose 50 ml 04/12/25 00:08 04/12/25 12:20 Dextrose 50%-Water Inj 50 Ml Syringe IV 05/12/25 00:07 50 ml Q15MIN PRN Administration BG <50 OR BG <70 & pt unresponsive Enoxaparin Sodium 40 mg 04/12/25 21:00 04/13/25 08:52 Enoxaparin Sod Inj 40 Mg/0.4 Ml Syringe SC 04/26/25 20:59 40 mg On Hold: 04/14/25 07:01 QDAY HARPER Administration Folic Acid 1 mg 04/18/25 09:00 04/19/25 08:38 Folic Acid 1 Mg Tablet NG 05/18/25 08:59 1 mg QDAY HARPER Administration Glucagon 1 mg 04/12/25 00:08 Glucagon Inj 1 Mg Vial IM Q15MIN PRN BG <70, and no IV access Metronidazole 500 mg in 100 mls @ 200 mls/hr 04/14/25 08:47 04/19/25 05:11 Flagyl 500 Mg Iv IV 04/21/25 08:46 200 mls/hr Q8HR HARPER Administration Cefepime HCl 2 gm/ Sodium 50 mls @ 100 mls/hr 04/14/25 15:11 04/19/25 05:11 Chloride IV 04/21/25 15:10 100 mls/hr Q8HR HARPER Administration Vancomycin/Sodium Chloride 100 mls @ 120 mls/hr 04/16/25 10:00 04/18/25 10:08 Vancomycin/Ns 500 Mg Ivpb IV 04/23/25 09:59 120 mls/hr QDAY@1000 HARPER Administration Insulin Human Lispro 0 unit 04/16/25 18:00 04/19/25 05:11 Insulin Lispro (Admelog) 1 Unit/0.01 Ml Unit SC 05/16/25 17:59 2 unit Q6HR HARPER Administration Protocol Levetiracetam 1,000 mg 04/12/25 21:00 04/19/25 08:37 Levetiracetam Inj 100 Mg/Ml Vial 5ml IVP 05/12/25 20:59 1,000 mg Q12HR HARPER Administration Multi-Ingredient Ointment 0 oz 04/12/25 12:30 04/19/25 08:38 Min Oil/Pet,White (Eucerin) Cr 16 Oz Btl TOP 05/12/25 12:29 1 appln DAILY HARPER Administration Multivitamins 1 tab 04/18/25 09:00 04/19/25 08:37 Multivitamins Tablet NG 05/18/25 08:59 1 tab QDAY HARPER Administration Ondansetron HCl 4 mg 04/11/25 22:23 Ondansetron Inj 2 Mg/Ml Inj 2 Ml IVP 05/11/25 22:22 Q6H PRN NAUSEA OR VOMITING Protocol Pantoprazole Sodium 40 mg 04/12/25 10:30 04/19/25 08:37 Pantoprazole Inj 40 Mg Vial IVP 05/12/25 10:29 40 mg QDAY HARPER Administration Pharmacy Consult 1 each 04/12/25 09:00 Vancomycin Pharmacy To Dose 1 Each Each IV 05/12/25 08:59 QDAY PRN RX Sodium Chloride 4 ml 04/15/25 13:00 04/19/25 07:28 Sodium Cl Rt Mere 3% 4 Ml Nebu (Non-Formulary) INH 05/15/25 12:59 4 ml Q6HRRT HARPER Administration Terbinafine HCl 2 gm 04/11/25 23:00 04/19/25 05:12 Terbinafine Hcl Cr 1% 12 Gm Tube TOP 05/11/25 22:59 2 gm TID HARPER Administration Thiamine HCl 100 mg 04/18/25 09:00 04/19/25 08:37 Thiamine 100 Mg Tablet NG 05/18/25 08:59 100 mg QDAY HARPER Administration Plan Patient is a 69-year-old female with past medical history of CAD s/p CABG with history of previous multiple PCI, moderate aortic stenosis, CVA/stroke, seizure disorder with Keppra, essential hypertension, hyperlipidemia, baseline dementia, slurred speech, history of left transmetatarsal amputation with questionable PAD, history of fall with displaced intra-articular fracture of the left hip status post open reduction internal fixation in June 2024 was brought in to the emergency department of worsening altered mental status. Admitted to ICU for acute metabolic encephalopathy in setting of hypertonic hyponatremia and acute hypothermia. Cardiology consulted due to concern for cardiogenic shock given history of CAD and moderate aortic stenosis. #Distributive shock, likely septic or distributive, unlikely cardiogenic, resolved #Acute hypothermia, improving #Bradycardia secondary to first-degree heart block #History of aortic stenosis, moderate #History of hypertension #History CVA #History of CAD status post CABG with history of previous multiple PCI # HFpEF (EF 60 to 65%) with stage I diastolic dysfunction Home meds include lisinopril 10 mg daily, aspirin 81 mg daily, Plavix 75 mg daily. On physical exam, auscultated 4/5 ejection systolic murmur radiating to carotids. TSH were normal, A1c was 8.1% in lipid profile showed total cholesterol of 123, HDL of 48 and LDL of 53. Chest x-ray with questionable left-sided pneumonia secondary to aspiration. CT chest abdominal with altered showed small bilateral pleural effusions along with significant thickening of gastric mucosa and some constipation. TTE 06/23/2024 showed normal LV size and function. Mild LVH. Stage I diastolic dysfunction. Estimated EF 60-65%. Normal RV size and function. Moderate AV stenosis, mean gradient 21mmHg, vmax 3.1 m/s. Mild thicken MVL. Midl MR, AI. Trace TR. Bradycardia likely secondary to severe hypothermia. Heart rate now improved to 70s to 80s with conservative treatment of hypothermia. TTE 04/12/25 showed normal left ventricular size and function. Mild LVH. Stage I diastolic dysfunction. Estimated EF 60-65%. Normal RV size and function. RVSP 40 mmHg with RAP 3. Moderate AV stenosis, mean gradient 31 mmHg, vmax 3.7 to 3.8m/s. MELE 1 sq cm. Mild thicken MV leaflets. Mild MR, AI and TR. Compared to prior study of 06/24/24- increased velocities. EKG 04/14 shows sinus bradycardia with first-degree AV block, LA 234, QTc 439. Plan: - Unlikely cardiogenic shock as patient only has moderate aortic stenosis with adequate flow. Likely distributive shock secondary to severe hypothermia or possible sepsis with underlying left lower lobe pneumonia. Patient was bradycardic along with hypotensive on admission which improved with rewarming with a Laverne hugger. - Even if the patient has severe aortic stenosis it is unlikely the patient will be a candidate for TAVR given his multiple comorbidities along with her severe protein calorie malnutrition and will not have good outcome as she is unable to do any kind of rehab. Can consider TAVR for her eventually if her overall clinical status improves over the next few months - Heart rate improving with Laverne hugger. As above, EKG shows first-degree AV block however patient remains asymptomatic with no long pauses noted and is therefore not a candidate for pacemaker placement at this time. - Recommend starting losartan 25 mg daily as patient is now on NG tube. - Avoid beta blockers as patient is already bradycardic ? Stable off Levophed and dopamine. Monitor BP. #Hypernatremia #Acute hypokalemia, resolved #Hypomagnesemia # Hypophosphatemia ##Hypocalcemia, resolved Presented with potassium of 2.4 and magnesium 1.1. Overnight given total potassium chloride 40 mEq, magnesium 2 g, calcium gluconate x1. 04/12/2025: Potassium improved to 4.7 at midnight. Calcium improved to 8.7, phosphorus 2.6, magnesium 2.3. ?Keep potassium above 4 and magnesium above 2 - Feeding via NG tube, adjust sodium content if any. #Acute on chronic normocytic anemia #Protein calorie malnutrition Patient presented with altered mental status and acute metabolic encephalopathy, unclear etiology. Appears to have poor oral intake as the patient was also noted to have severely low albumin at 1.5 as well as total protein at 2.5. Hemoglobin 7.6. In setting of acute gastritis and severe malnutrition. BMI 19.6. ? NG tube feeds as above - Workup per primary team #[id number] type 2 diabetes #Hx of LT foot metatrasal amputation and RT foot 2nd digit amputation A1c 8.1. Home meds include metformin 1000 mg twice daily. ?SSI per primary team #Acute encephalopathy in setting of #Hypotonic hyponatremia, severe #Left base PNA, possibly aspiration #Right upper lobe pulmonary nodules #Bilateral pleural effusions, small #Pancytopenia #Proctitis, likely acute #Seizure disorder #Hyperlipidemia #Constipation Vs. bowel ileus #Tinea Capitis #Nasal lesion, possibly basal cell carcinoma #Axillary lymphadenopathy #Baseline dementia #History of questionable PAD with transmetatarsal amputation and right toe amputation #COPD Thank you for your consultation, please do not hesitate to reach out if you have any question or concern Patient plan of care was discussed with the attending physician, Dr. Castellanos. Kenisha Marsh, PGY-1 Attending Provider Attestation/Addendum I have personally seen and examined the patient separately on the above date of service and discussed the plan of care with the resident. I reviewed the resident Dr. Kenisha Marsh consultation progress note and agree with the resident findings and plan in the note above and have also edited the documentation to reflect my findings and plan. Jose Castellanos M.D. Interventional Cardiology
[2025-04-19] MEDS: VANCOMYCIN/NS 500 MG IVPB 100 ML 120 MG IV (10:16)
--- NOTE | 2025-04-19 10:47 | ESPR_ITS ---
<Statement entered by Keaton Baltazar MD - 04/19/25 11:15> I have reviewed the note and agree with the resident's assessment & plan with exceptions as below. I have personally reviewed labs, imaging, home meds/prior records, examined the patient, formulated and discussed management plan with my attending Patient was seen and evaluated bedside this morning. No acute overnight events. Patient tube feeds are at 50 cc rate. Patient was doing a lot better today and was more attempted and alert. Patient's skin seems to be worsening with more excoriations likely could be atopic dermatitis therefore spoke with patient's son to start hydrocortisone 1% cream to see if there is any improvement at this time. He agreed and therefore treatment was started. Will keep current antibiotics for now as patient has improved with these and will follow-up on patient's appointment day-by-day. Keaton Baltazar PGY2 Disclaimer: Even though this this note was dictated by speech recognition and even though it was carefully revised there may still be minor errors in rip/mould operator due to voice recognition software. Documentation for date of: 04/19/25 Subjective Subjective Interval history: No acute overnight events. Patient is examined at bedside. Patient continues to improve, able to open eyes during interview and indicated no to pain by shaking head [id number]. No tenderness to palpation over abdomen as well as upper and lower extremities. Vitals labs reviewed. SBP 120 -160. Telemetry reviewed, heart rate high 50s low 60s sinus. Saturating 100% on room air. Significant labs close platelets uptrending from 66 now 99. Slight hyponatremia 147. Bicarb uptrending 17 to now 19. Chloride still elevated 118. BUN stable elevated 35. Sputum culture still pending. Continue antibiotics as patient continues to clinically improve. Pending sputum culture. Glucerna currently running at 50 mL an hour with goal rate of 60. Patient appears to be tolerating feeds well. Consulted wound care and started hydrocortisone 1% topical for skin findings. Spoke to son who is agreeable with hydrocortisone 1% reporting that since discharge from rehab patient has had leathery dry skin. Exam Vital Signs Temp Pulse Resp BP Pulse Ox O2 Del Method O2 Flow Rate 97.2 F 54 L 13 121/60 100 Room Air 2 04/19/25 08:00 04/19/25 08:00 04/19/25 08:00 04/19/25 08:00 04/19/25 08:00 04/19/25 08:00 04/19/25 01:44 FiO2 62 04/16/25 07:43 Narrative Exam GENERAL: no acute distress, does not speak, unable to assess orientation, thin and frail HEENT: mucous membranes dry, bilateral sclera anicteric, crusted lips, seborrheic dermatitis CARDIOVASCULAR: regular rate and rhythm, 4/6 systolic ejection murmur PULMONARY: coarse breath sounds ABDOMINAL: soft, non-tender, non-distended, no rebound/guarding, bowel sounds present EXTREMITIES: no edema, L foot tarsal amputation, R foot 2nd digit amputation, LUE swelling SKIN: warm and dry, widespread small skin lesions scabbed over, dry flaky skin NEURO: CN II-XII grossly intact, not speaking, opening eyes to verbal stimulation and tracking well Objective Labs 04/20/25 04:54 04/20/25 04:54 Labs: Laboratory Results - last 24 hr 04/18/25 04/19/25 05:10 05:10 WBC 9.2 RBC 3.56 L Hgb 9.5 L Hct 28.7 L MCV 81 MCH 26.7 MCHC 33.1 RDW Std Deviation 55.2 H Plt Count 99 L D Neut % (Auto) 57 Lymph % (Auto) 9 L [place] % (Auto) 7 Eos % (Auto) 27 H Baso % (Auto) 0 Neut # (Auto) 5.2 Lymph # (Auto) 0.8 L [place] # (Auto) 0.6 Eos # (Auto) 2.5 H Baso # (Auto) 0.0 Immature Gran # (Auto) 0.07 H Absolute Nucleated RBC 0.00 Immature Gran % 1 H Nucleated RBC % 0 Sodium 147 H Potassium 4.6 Chloride 118 H Carbon Dioxide 19.3 L Anion Gap 10 BUN 35 H Creatinine 0.5 L Estim Creat Clear Calc 96.6 eGFR > 60 BUN/Creatinine Ratio 70 H Glucose 235 H Calculated Osmolality 308 H Calcium 8.3 Corrected Calcium 9.3 Phosphorus 2.5 Magnesium 2.0 Total Bilirubin 0.4 AST 19 ALT 17 Alkaline Phosphatase 104 Total Protein 4.7 L Albumin 2.8 L Globulin 1.9 L Albumin/Globulin Ratio 1.5 Misc Test Result Platelets confirmed ABG Interpretation ABG results: 04/11/25 04/14/2525 21:53 23:37 08:00 ABG pH 7.29 L 7.47 H ABG pCO2 53 H 30 L ABG pO2 90 61 L ABG HCO3 25 21 ABG O2 Saturation 97 94 ABG Base Excess -2 -2 VBG pH 7.36 VBG pCO2 31 L VBG pO2 108 H VBG Base Excess -7 L Quality Measures Quality Measures VTE prophylaxis Advance care planning discussed with:: child Assessment & Plan Assessment Current Active Medications: Generic Name Dose Route Start Last Admin Trade Name Freq PRN Reason Stop Dose Admin Dextrose 50 ml 04/12/25 00:08 04/12/25 12:20 Dextrose 50%-Water Inj 50 Ml Syringe IV 05/12/25 00:07 50 ml Q15MIN PRN Administration BG <50 OR BG <70 & pt unresponsive Enoxaparin Sodium 40 mg 04/12/25 21:00 04/13/25 08:52 Enoxaparin Sod Inj 40 Mg/0.4 Ml Syringe SC 04/26/25 20:59 40 mg On Hold: 04/14/25 07:01 QDAY HARPER Administration Folic Acid 1 mg 04/18/25 09:00 04/19/25 08:38 Folic Acid 1 Mg Tablet NG 05/18/25 08:59 1 mg QDAY HARPER Administration Glucagon 1 mg 04/12/25 00:08 Glucagon Inj 1 Mg Vial IM Q15MIN PRN BG <70, and no IV access Metronidazole 500 mg in 100 mls @ 200 mls/hr 04/14/25 08:47 04/19/25 05:11 Flagyl 500 Mg Iv IV 04/21/25 08:46 200 mls/hr Q8HR HARPER Administration Cefepime HCl 2 gm/ Sodium 50 mls @ 100 mls/hr 04/14/25 15:11 04/19/25 05:11 Chloride IV 04/21/25 15:10 100 mls/hr Q8HR HARPER Administration Vancomycin/Sodium Chloride 100 mls @ 120 mls/hr 04/16/25 10:00 04/19/25 10:16 Vancomycin/Ns 500 Mg Ivpb IV 04/23/25 09:59 120 mls/hr QDAY@1000 HARPER Administration Insulin Human Lispro 0 unit 04/16/25 18:00 04/19/25 05:11 Insulin Lispro (Admelog) 1 Unit/0.01 Ml Unit SC 05/16/25 17:59 2 unit Q6HR HARPER Administration Protocol Levetiracetam 1,000 mg 04/12/25 21:00 04/19/25 08:37 Levetiracetam Inj 100 Mg/Ml Vial 5ml IVP 05/12/25 20:59 1,000 mg Q12HR HARPER Administration Multi-Ingredient Ointment 0 oz 04/12/25 12:30 04/19/25 08:38 Min Oil/Pet,White (Eucerin) Cr 16 Oz Btl TOP 05/12/25 12:29 1 appln DAILY HARPER Administration Multivitamins 1 tab 04/18/25 09:00 04/19/25 08:37 Multivitamins Tablet NG 05/18/25 08:59 1 tab QDAY HARPER Administration Ondansetron HCl 4 mg 04/11/25 22:23 Ondansetron Inj 2 Mg/Ml Inj 2 Ml IVP 05/11/25 22:22 Q6H PRN NAUSEA OR VOMITING Protocol Pantoprazole Sodium 40 mg 04/12/25 10:30 04/19/25 08:37 Pantoprazole Inj 40 Mg Vial IVP 05/12/25 10:29 40 mg QDAY HARPER Administration Pharmacy Consult 1 each 04/12/25 09:00 Vancomycin Pharmacy To Dose 1 Each Each IV 05/12/25 08:59 QDAY PRN RX Sodium Chloride 4 ml 04/15/25 13:00 04/19/25 07:28 Sodium Cl Rt Mere 3% 4 Ml Nebu (Non-Formulary) INH 05/15/25 12:59 4 ml Q6HRRT HARPER Administration Terbinafine HCl 2 gm 04/11/25 23:00 04/19/25 05:12 Terbinafine Hcl Cr 1% 12 Gm Tube TOP 05/11/25 22:59 2 gm TID HARPER Administration Thiamine HCl 100 mg 04/18/25 09:00 04/19/25 08:37 Thiamine 100 Mg Tablet NG 05/18/25 08:59 100 mg QDAY HARPER Administration Plan Jill Holden 69F pmhx significant for primary hypertension, NIDDM2, CAD s/p CABG, hx of CVA, seizure disorder, age-related dementia, left diabetic foot metatarsal amputation, right foot second digit amputation and COPD, who presented to [facility] ED for acute encephalopathy, initially admitted to ICU for distributive shock from unknown source requiring pressor support and downgraded to floors on 04/13. #Distributive shock and #Acute infectious encephalopathy 2/2 #L Base PNA, likely aspiration with gram-negative versus anaerobic bacteria #Hypothermia #RUE swelling / PPN Patient presented obtunded with AMS, BP 79/48 MAP 51-52, HR 46, temp 84.7, WBC 2.2. Directly admitted to ICU requiring dopamine and Levophed pressors. Eventually weaned off and downgraded 04/13. Per ICU, mentation has improved since admission following broad spectrum abx and fluid resuscitation. UA unremarkable, lactic acid 0.9 on admission. Lipase 115. Ammonia 37. CRP neg, ESR 55. BCx 1/[address] Head no acute processes. CTAP showed L base PNA, consider aspiration PNA, R upper lobe pulmonary nodules, multiple subcentimeter axillary lymph nodes, small b/l pleural effusions, significant thickening of gastric mucosa, abundant stool in rectosigmoid but no bowel obstruction, rectal wall thickening, consider proctitis, severe osteopenia Ddx: likely septic from L PNA, possible proctitis, gastritis, vs osteomyelitis as patient improved with fluids and abx. Less likely cardiogenic as patient condition has improved off pressors without continued ionotropic support. Ceftriaxone (04/13-04/14). Repeat BCx NGTD On 04/15/2025, patient's clinical condition deteriorated significantly; she was obtunded, and only lifted head and looked towards people after significant stimulation; patient's family was informed about deteriorating clinical state. NG tube placement unsuccessful due to bleeding, and deep suction cannot be done due to low platelet count. 04/15 repeat CXR no improvement in diffuse significant L lung PNA RUE swelling noted following PPN initiation, and RUE US negative for DVT. PPN (04/15-04/18) Plan: - Continue vancomycin (04/11- ), metronidazole (04/11, 04/14 - ), cefepime (04/14- - Chest physiotherapy on board - Pulmonology consulted, recs appreciated: no bronchoscopy as family refused, recommend to transfuse platelets and insert NG tube vs PEG if NG cannot be placed - NG tube inserted 04/17 and Glucerna at rate 50 mL/hr now - Sheet Manufacturing Supervisor consulted, recs appreciated: Glucerna 1.2 at 30 mL/hr via NG tube by pump, advance 10 mL every 12 h to goal rate of 60 mL/hr x24h. Continue thiamine 100 mg QD and multivitamins/minerals - As platelet increasing, will hold off on consulting heme/onc - F/u sputum Cx #Severe thrombocytopenia #Anemia of chronic disease On admission Hgb platelets 34, on 04/15/2025, count was 29. Peripheral smear shows normocytic normochronic anemia with normal serium iron and TIBC, consistent with anemia of chronic disease, severe thrombocytopenia, and mild neutropenia. Vitals remains stable at this time. 04/15 liver ultrasound shows normal gallbladder, normal blood, bile duct, mild hepatomegaly, partial visualization of right pleural fluid. B12 1400, folate wnl, HIV and hep neg, retic count 0.8, LDH 277 Ddx for severe thrombocytopenia: MDS vs infection vs liver disease vs medication induced vs autoimmune Plan: - Trend CBC - F/u peripheral blood smear, DONNIE, thiamine, Legionella, valley fever levels for thrombocytopenia workup - No platelet transfusion at this time as patient is hemodynamically stable with blood pressure holding and HR wnl, consider platelet transfusion if platelet becomes hemodynamically unstable - DVT prophylaxis Lovenox held #Proctitis #Gastritis Patient poor historian, on admission replies yes to pain however when prompted, reports yes to all bodily pain. Unable to localize. Per CTAP imaging as above. Plan: - Continue abx as above - IV pantoprazole 40 mg QD #R upper lobe pulmonary nodules #Multiple subcentimeter axillary lymph nodes Findings CTAP as above. No history of cancer per chart review. Plan: - Abx as above - Recommend to follow up outpatient for further management #Bradycardia -improved #Moderate aortic stenosis #Essential HTN Patient presented with HR 46 on admission. Resolved following resolution of hypothermia, fluid resuscitation and abx. TSH wnl 2.73, 04/12 TTE: Normal left ventricular size and function. Mild LVH. Stage I diastolic dysfunction. Estimated EF 60-65%. Normal RV size and function. RVSP 40 mmHg with RAP 3. Moderate AV stenosis, mean gradient 31 mmHg, vmax 3.7 to 3.8m/s. MELE 1 sq cm. Mild thickened MV leaflets. Mild MR, AI and TR. Compared to prior study of 06/24/24- increased velocities. Likely 2/2 infectious etiology vs heart block. Plan: - Cardiology consulted, recs appreciated: likely 2/2 hypothermia, unlikely good candidate for TAVR for or pacemaker for first degree AV block due to patient being asymptomatic at this time - Telemetry for cardiac monitoring - Keep K>4 and Mg>2 at all times - F/u cortisol #Electrolyte abnormalities #Hypernatremia #Hypokalemia, resolved #Hyperchloremia #Hypobicarbinemia, improving #Hypophosphatemia, resolved #Hypomagnesemia, resolved #Hypocalcemia, resolved On admission, Na 155, K 2.4, Cl 129, bicarb 18.5, glucose 65, Ca 7.0, phos 2.3, Mg 1.1. s/p D5W in ICU Plan: - Recheck and replete as necessary - Consider further D5W if Na continues to uptrend, at this time PPN should be sufficient #NIDDM2 #Hx of L diabetic foot tarsal amputation #Hx of osteomyelitis of R foot distal fourth metatarsal and proximal phalanx fourth digit #Hx of R big toe abscess s/p I&D of R big toe and 2nd toe amputation (12/04/24) Admission A1c 8.1. Per med rec takes metformin 1g BID. Possible osteomyelitis as source of distributive shock. Plan: - SSI in place #Hx of seizures Per history. On home Keppra 1g BID. Unknown when last seizure occurred. Plan: - Continue home Keppra 1g BID - Consider ordering EEG and/or consulting neurology if encephalopathy worsens #Diffuse excoriations #Xeroderma vs atopic dermatitis vs ezcema #Tinea capitis In ICU initially some concern for scabies, and per son, patient received permethrin and developed skin lesions. Diffuse crusted rash over forehead. Patient continues to scratch however likely 2/2 allergy to permethrin. Per son, patient's skin has been very dry and leathery since returning from rehab. Despite moisturizers, skin remains very dry. Plan: - Terbinafine topical 2g TID - Start hydrocortisone 1% topical - Wound care consulted, recs appreciated Hospital management: Lines: PIV Diet: Blenderized Puree, NG Glucerna feeds Bowel: None GI prophylaxis: IV pantoprazole 40 mg QD DVT prophylaxis: SCDs Disposition: tele for IV abx CODE STATUS: FULL CODE This case was discussed with my attending physician, Dr. Mcintosh and PGY-2 Dr Gunn. Linda Marsh DO Internal Medicine PGY-1 Attending Provider Attestation/Addendum I have discussed and was present for the essential components of the history, physical examination, diagnosis, and treatment plan with the resident. I agree with the patient's care as documented by the resident and amended herein by me. Jamir Mcintosh DO. Although this document has been carefully reviewed, there may still be some phonetic and other typographical errors. These errors are purely grammatical due to imperfections in the software program and should not be construed in any way to compromise the substance of the patient's medical care during this visit.
[2025-04-19] MEDS: Hydrocortisone Cr 1% 30 GM TUBE TOP ×2 (12:46→22:45)
--- NOTE | 2025-04-19 15:01 | PC.SS ---
rounding notes: Patient remains on i.v. antibiotics. On ng tube. Plan is to d/c with HH. Baseline: bedbound. Lives with son. Patient not medically stable for discharge yet.
[2025-04-20] VITALS (12 sets, daily range): BP systolic 116–146; BP diastolic 52–74; PULSE 54–72; RESP 18–98; TEMP 36.1–36.6; O2SAT 95–100
[2025-04-20] MEDS: SODIUM CL RT SOL 3% 4 ML NEBU (NON-FORMULARY) INH ×4 (00:25→19:42)
[2025-04-20] MEDS: INSULIN LISPRO (AdmeLOG) 1 UNIT/0.01 ML UNIT SC ×5 (00:35→23:54)
[2025-04-20] MEDS: metroNIDAZOLE/NS 500 MG IVPB 500 MG/100 ML BAG 200 MG IV ×3 (05:13→21:06)
--- NOTE | 2025-04-20 05:25 | PC.NURSE ---
urine specimen for legionella sent to lab.
[2025-04-20 05:38] LABS: Basophils # (Auto) 0.0 Thou/mm3 (0.0-0.2); Basophils % (Auto) 0 % (0-2.5); Eosinophils # (Auto) 2.2 Thou/mm3 (0.0-0.5); Eosinophils % (Auto) 23 % (0-10); Hematocrit 29.5 % (36.0-46.0); Hemoglobin 9.7 g/dL (12.0-16.0); Immature Granulocytes Auto 0.07 Thou/mm3 (0.00-0.00); Lymphocytes # (Auto) 0.9 Thou/mm3 (1.0-4.8); Lymphocytes % (Auto) 9 % (10-50); Mean Corpuscular HGB Conc 32.9 g/dl (31.0-37.0); Mean Corpuscular Hemoglobin 26.5 pg (25.0-35.0); Mean Corpuscular Volume 81 fL (80-100); Monocytes # (Auto) 0.9 Thou/mm3 (0.0-0.8); Monocytes % (Auto) 9 % (0-12); Neutrophils # (Auto) 5.5 Thou/mm3 (1.8-7.7); Neutrophils % (Auto) 58 % (37-80); Nucleated Red Blood Cell # 0.00 Thou/mm3 (0.00-0.00); Nucleated Red Blood Cell % 0 /100 WBC (0); Platelet Count 135 Thou/mm3 (140-440); RDW Standard Deviation 56.4 fL (36.4-46.3); Red Blood Count 3.66 Miln/mm3 (4.00-5.20); White Blood Count 9.5 Thou/mm3 (3.6-11.0)
[2025-04-20] MEDS: CEFEPIME INJ 2 GM in SODIUM CHLORIDE 0.9% (Popper) 50 ML IV ×3 (06:00→21:06)
[2025-04-20 06:06] LABS: Alanine Aminotransferase 16 U/L (10-49); Albumin, Serum 2.8 gm/dL (3.4-4.8); Albumin/Globulin Ratio 1.4 (1.2-2.2); Alkaline Phosphatase 113 U/L (46-116); Anion Gap 8 (7-16); Aspartate Amino Transferase 18 U/L (0-34); BUN/Creatinine Ratio 74 Ratio (12-20); Bilirubin,Total 0.3 mg/dL (0.3-1.2); Blood Urea Nitrogen 37 mg/dL (9-23); Calcium 8.4 mg/dL (8.3-10.6); Calcium (Corrected) 9.4 mg/dL (8.5-10.1); Carbon Dioxide 21.2 mMol/L (20.0-31.0); Chloride 117 mMol/L (98-107); Creatinine (Component) 0.5 mg/dL (0.6-1.3); Estimated Creatinine Clearance 96.6 mL/min (>60); Globulin 2.0 gm/dL (2.3-3.5); Glucose 240 mg/dL (74-106); Magnesium 2.0 mg/dL (1.6-2.6); Osmolality,Calculated 307 (275-295); Phosphorous 3.1 mg/dL (2.4-5.1); Potassium 5.0 mMol/L (3.4-5.1); Sodium 146 mMol/L (136-145); Total Protein 4.8 gm/dL (5.7-8.2); Vancomycin,Random 12.6 mcg/mL; eGFR > 60 See Note
[2025-04-20 06:34] LABS: Cortisol,total,LC/MS/MS* 7.7 mcg/dL
--- NOTE | 2025-04-20 08:51 | PD.RESPRO ---
Documentation for date of: 04/20/25 Subjective Subjective Interval history: Patient seen and assessed at bedside. Able to open eyes and respond to verbal cues. However still unable to answer questions appropriately. On physical exam, appeared to have swollen extremities, plan to diurese with IV Lasix 20 mg. Will monitor response. Continues to be in sinus rhythm with prolonged SD interval on telemetry. Occasional PVCs. Potassium 5.0, magnesium 2.0, creatinine 0.5. Still receiving nutrition via NG tube. Will hold BP meds at this time as patient is normotensive, 120s over 60s this morning. Consider restarting losartan 25 mg p.o. now that patient has NG tube if patient becomes hypertensive. Exam Vital Signs Temp Pulse Resp BP Pulse Ox O2 Del Method O2 Flow Rate 97.9 F 65 25 H 143/74 H 95 Room Air 2 04/20/25 08:00 04/20/25 08:00 04/20/25 08:00 04/20/25 08:00 04/20/25 08:00 04/20/25 08:00 04/19/25 01:44 FiO2 62 04/16/25 07:43 Narrative Exam Physical Exam General: Awake and in no acute distress. Not conversational. Confused. Unable to answer questions appropriately. Cachectic. HEENT: Normocephalic, atraumatic, mucous membranes dry. Upper dentures, missing bottom teeth. NG tube in place. Heart: Regular rate and rhythm, normal S1 and S2, 4/5 systolic murmur radiating to carotids. Lungs: Coarse breath sounds in all lobes. Abdomen: Soft, nondistended, nontender, positive bowel sounds. No guarding or rebound tenderness. Neurologic: Alert and oriented x0. Unable to assess as patient is noncompliant with commands. Extremities: Swelling of bilateral hands and feet. Left foot transmetatarsal amputation. Right foot second digit amputation. Skin: No rash or ecchymoses. Tinea capitis at frontal scalp. Petechial lesions bilateral lower extremities. Very dry skin. Objective Labs 04/21/25 05:11 04/21/25 14:22 Labs: Laboratory Results - last 24 hr 04/11/25 04/20/25 20:05 04:54 WBC 9.5 RBC 3.66 L Hgb 9.7 L Hct 29.5 L MCV 81 MCH 26.5 MCHC 32.9 RDW Std Deviation 56.4 H Plt Count 135 L D Neut % (Auto) 58 Lymph % (Auto) 9 L [place] % (Auto) 9 Eos % (Auto) 23 H Baso % (Auto) 0 Neut # (Auto) 5.5 Lymph # (Auto) 0.9 L [place] # (Auto) 0.9 H Eos # (Auto) 2.2 H Baso # (Auto) 0.0 Immature Gran # (Auto) 0.07 H Absolute Nucleated RBC 0.00 Immature Gran % 1 H Nucleated RBC % 0 Sodium 146 H Potassium 5.0 Chloride 117 H Carbon Dioxide 21.2 Anion Gap 8 BUN 37 H Creatinine 0.5 L Estim Creat Clear Calc 96.6 eGFR > 60 BUN/Creatinine Ratio 74 H Glucose 240 H Calculated Osmolality 307 H Calcium 8.4 Corrected Calcium 9.4 Phosphorus 3.1 Magnesium 2.0 Total Bilirubin 0.3 AST 18 ALT 16 Alkaline Phosphatase 113 Total Protein 4.8 L Albumin 2.8 L Globulin 2.0 L Albumin/Globulin Ratio 1.4 Total Cortisol 7.7 Random Vancomycin 12.6 ABG Interpretation ABG results: 04/11/25 04/14/25 04/18/25 21:53 23:37 08:00 ABG pH 7.29 L 7.47 H ABG pCO2 53 H 30 L ABG pO2 90 61 L ABG HCO3 25 21 ABG O2 Saturation 97 94 ABG Base Excess -2 -2 VBG pH 7.36 VBG pCO2 31 L VBG pO2 108 H VBG Base Excess -7 L Quality Measures Quality Measures VTE prophylaxis Advance care planning discussed with:: patient Assessment & Plan Assessment Current Active Medications: Generic Name Dose Route Start Last Admin Trade Name Mikq PRN Reason Stop Dose Admin Dextrose 50 ml 04/12/25 00:08 04/12/25 12:20 Dextrose 50%-Water Inj 50 Ml Syringe IV 05/12/25 00:07 50 ml Q15MIN PRN Administration BG <50 OR BG <70 & pt unresponsive Enoxaparin Sodium 40 mg 04/12/25 21:00 04/13/25 08:52 Enoxaparin Sod Inj 40 Mg/0.4 Ml Syringe SC 04/26/25 20:59 40 mg On Hold: 04/14/25 07:01 QDAY HARPER Administration Folic Acid 1 mg 04/18/25 09:00 04/19/25 08:38 Folic Acid 1 Mg Tablet NG 05/18/25 08:59 1 mg QDAY HARPER Administration Glucagon 1 mg 04/12/25 00:08 Glucagon Inj 1 Mg Vial IM Q15MIN PRN BG <70, and no IV access Hydrocortisone 0 gm 04/19/25 11:30 04/19/25 22:45 Hydrocortisone Cr 1% 30 Gm Tube TOP 05/19/25 11:29 1 appln BID HARPER Administration Metronidazole 500 mg in 100 mls @ 200 mls/hr 04/14/25 08:47 04/20/25 05:13 Flagyl 500 Mg Iv IV 04/21/25 08:46 200 mls/hr Q8HR HARPER Administration Cefepime HCl 2 gm/ Sodium 50 mls @ 100 mls/hr 04/14/25 15:11 04/20/25 06:00 Chloride IV 04/21/25 15:10 100 mls/hr Q8HR HARPER Administration Vancomycin/Sodium Chloride 100 mls @ 120 mls/hr 04/16/25 10:00 04/19/25 10:16 Vancomycin/Ns 500 Mg Ivpb IV 04/23/25 09:59 120 mls/hr QDAY@1000 HARPER Administration Insulin Degludec 10 unit 04/20/25 09:00 Insulin Degludec 5 Unit/0.05 Ml (Per 5 Units) SC 05/20/25 08:59 QDAY HARPER Insulin Human Lispro 0 unit 04/16/25 18:00 04/20/25 06:06 Insulin Lispro (Admelog) 1 Unit/0.01 Ml Unit SC 05/16/25 17:59 2 unit Q6HR HARPER Administration Protocol Levetiracetam 1,000 mg 04/12/25 21:00 04/19/25 21:30 Levetiracetam Inj 100 Mg/Ml Vial 5ml IVP 05/12/25 20:59 1,000 mg Q12HR HARPER Administration Multi-Ingredient Ointment 0 oz 04/12/25 12:30 04/19/25 08:38 Min Oil/Pet,White (Eucerin) Cr 16 Oz Btl TOP 05/12/25 12:29 1 appln DAILY HARPER Administration Multivitamins 1 tab 04/18/25 09:00 04/19/25 08:37 Multivitamins Tablet NG 05/18/25 08:59 1 tab QDAY HARPER Administration Ondansetron HCl 4 mg 04/11/25 22:23 Ondansetron Inj 2 Mg/Ml Inj 2 Ml IVP 05/11/25 22:22 Q6H PRN NAUSEA OR VOMITING Protocol Pantoprazole Sodium 40 mg 04/12/25 10:30 04/19/25 08:37 Pantoprazole Inj 40 Mg Vial IVP 05/12/25 10:29 40 mg QDAY HARPER Administration Pharmacy Consult 1 each 04/12/25 09:00 Vancomycin Pharmacy To Dose 1 Each Each IV 05/12/25 08:59 QDAY PRN RX Sodium Chloride 4 ml 04/15/25 13:00 04/20/25 06:39 Sodium Cl Rt Mere 3% 4 Ml Nebu (Non-Formulary) INH 05/15/25 12:59 4 ml Q6HRRT HARPER Administration Thiamine HCl 100 mg 04/18/25 09:00 04/19/25 08:37 Thiamine 100 Mg Tablet NG 05/18/25 08:59 100 mg QDAY HARPER Administration Plan Patient is a 69-year-old female with past medical history of CAD s/p CABG with history of previous multiple PCI, moderate aortic stenosis, CVA/stroke, seizure disorder with Keppra, essential hypertension, hyperlipidemia, baseline dementia, slurred speech, history of left transmetatarsal amputation with questionable PAD, history of fall with displaced intra-articular fracture of the left hip status post open reduction internal fixation in June 2024 was brought in to the emergency department of worsening altered mental status. Admitted to ICU for acute metabolic encephalopathy in setting of hypertonic hyponatremia and acute hypothermia. Cardiology consulted due to concern for cardiogenic shock given history of CAD and moderate aortic stenosis. #Distributive shock, likely septic or distributive, unlikely cardiogenic, resolved #Acute hypothermia, improving #Bradycardia secondary to first-degree heart block #History of aortic stenosis, moderate #History of hypertension #History CVA #History of CAD status post CABG with history of previous multiple PCI # HFpEF (EF 60 to 65%) with stage I diastolic dysfunction Home meds include lisinopril 10 mg daily, aspirin 81 mg daily, Plavix 75 mg daily. On physical exam, auscultated 4/5 ejection systolic murmur radiating to carotids. TSH were normal, A1c was 8.1% in lipid profile showed total cholesterol of 123, HDL of 48 and LDL of 53. Chest x-ray with questionable left-sided pneumonia secondary to aspiration. CT chest abdominal with altered showed small bilateral pleural effusions along with significant thickening of gastric mucosa and some constipation. TTE 06/23/2024 showed normal LV size and function. Mild LVH. Stage I diastolic dysfunction. Estimated EF 60-65%. Normal RV size and function. Moderate AV stenosis, mean gradient 21mmHg, vmax 3.1 m/s. Mild thicken MVL. Midl MR, AI. Trace TR. Bradycardia likely secondary to severe hypothermia. Heart rate now improved to 70s to 80s with conservative treatment of hypothermia. TTE 04/12/25 showed normal left ventricular size and function. Mild LVH. Stage I diastolic dysfunction. Estimated EF 60-65%. Normal RV size and function. RVSP 40 mmHg with RAP 3. Moderate AV stenosis, mean gradient 31 mmHg, vmax 3.7 to 3.8m/s. MELE 1 sq cm. Mild thicken MV leaflets. Mild MR, AI and TR. Compared to prior study of 06/24/24- increased velocities. EKG 04/14 shows sinus bradycardia with first-degree AV block, SD 234, QTc 439. Plan: - Unlikely cardiogenic shock as patient only has moderate aortic stenosis with adequate flow. Likely distributive shock secondary to severe hypothermia or possible sepsis with underlying left lower lobe pneumonia. Patient was bradycardic along with hypotensive on admission which improved with rewarming with a Laverne hugger. - Even if the patient has severe aortic stenosis it is unlikely the patient will be a candidate for TAVR given his multiple comorbidities along with her severe protein calorie malnutrition and will not have good outcome as she is unable to do any kind of rehab. Can consider TAVR for her eventually if her overall clinical status improves over the next few months - Heart rate improving with Laverne hugger. As above, EKG shows first-degree AV block however patient remains asymptomatic with no long pauses noted and is therefore not a candidate for pacemaker placement at this time. - Recommend starting losartan 25 mg daily as patient is now on NG tube if BP permits as part of GDMT. - Avoid beta blockers as patient is already bradycardic ? Stable off Levophed and dopamine. Monitor BP. #Hypernatremia #Acute hypokalemia, resolved #Hypomagnesemia # Hypophosphatemia ##Hypocalcemia, resolved Presented with potassium of 2.4 and magnesium 1.1. Overnight given total potassium chloride 40 mEq, magnesium 2 g, calcium gluconate x1. 04/12/2025: Potassium improved to 4.7 at midnight. Calcium improved to 8.7, phosphorus 2.6, magnesium 2.3. ?Keep potassium above 4 and magnesium above 2 - Feeding via NG tube, adjust sodium content if any. #Acute on chronic normocytic anemia #Protein calorie malnutrition Patient presented with altered mental status and acute metabolic encephalopathy, unclear etiology. Appears to have poor oral intake as the patient was also noted to have severely low albumin at 1.5 as well as total protein at 2.5. Hemoglobin 7.6. In setting of acute gastritis and severe malnutrition. BMI 19.6. ? NG tube feeds as above - Workup per primary team #[id number] type 2 diabetes #Hx of LT foot metatrasal amputation and RT foot 2nd digit amputation A1c 8.1. Home meds include metformin 1000 mg twice daily. ?SSI per primary team #Acute encephalopathy in setting of #Hypotonic hyponatremia, severe #Left base PNA, possibly aspiration #Right upper lobe pulmonary nodules #Bilateral pleural effusions, small #Pancytopenia #Proctitis, likely acute #Seizure disorder #Hyperlipidemia #Constipation Vs. bowel ileus #Tinea Capitis #Nasal lesion, possibly basal cell carcinoma #Axillary lymphadenopathy #Baseline dementia #History of questionable PAD with transmetatarsal amputation and right toe amputation #COPD Thank you for your consultation, please do not hesitate to reach out if you have any question or concern Patient plan of care was discussed with the attending physician, Dr. Castellanos. Kenisha Marsh, PGY-1 Attending Provider Attestation/Addendum I have personally seen and examined the patient separately on the above date of service and discussed the plan of care with the resident. I reviewed the resident Dr. Kenisha Marsh consultation progress note and agree with the resident findings and plan in the note above and have also edited the documentation to reflect my findings and plan. Jose Castellanos M.D. Interventional Cardiology
[2025-04-20] MEDS: MULTIVITAMIN 15 ML UDC NG (09:04)
[2025-04-20] MEDS: INSULIN DEGLUDEC 5 UNIT/0.05 ML (PER 5 UNITS) 10 UNIT SC (09:05)
[2025-04-20] MEDS: THIAMINE 100 MG TABLET NG (09:05)
[2025-04-20] MEDS: levETIRAcetam INJ 100 MG/ML VIAL 5ML 1000 MG IVP ×2 (09:05→20:06)
[2025-04-20] MEDS: FOLIC ACID 1 MG TABLET NG (09:05)
[2025-04-20] MEDS: MIN OIL/PET,WHITE (Eucerin) CR 16 OZ BTL TOP (09:08)
[2025-04-20] MEDS: Hydrocortisone Cr 1% 30 GM TUBE TOP ×2 (09:08→20:08)
[2025-04-20] MEDS: VANCOMYCIN/NS 500 MG IVPB 100 ML 120 MG IV (10:12)
[2025-04-20] MEDS: FUROSEMIDE INJ 10 MG/ML VIAL 2 ML 20 MG IVP (10:13)
--- NOTE | 2025-04-20 10:58 | ESPR_ITS ---
<Statement entered by Keaton Baltazar MD - 04/20/25 17:16> I have reviewed the note and agree with the resident's assessment & plan with exceptions as below. I have personally reviewed labs, imaging, home meds/prior records, examined the patient, formulated and discussed management plan with my attending Patient was seen examined bedside this morning. No acute overnight events. Patient's platelet continue to uptrend therefore we will restart patient's Lovenox as she has high risk for DVT given her immobility. Otherwise patient sodium continues to downtrend and is currently at 146. Patient condition seems to still be guarded, but is showing some improvement. Antibiotics will be de- escalated tomorrow and likely will discontinue Flagyl and vancomycin to complete 7-day course and will only keep cefepime at that time. Patient responded well to hydrocortisone 1% therefore will give another treatment of hydrocortisone 1% today and if patient's rash does improve slightly will consider increasing percentage to 2%. Patient's son was updated and all his questions were answered. He was in agreement with the treatment plan at this time. Keaton Baltazar PGY2 Disclaimer: Even though this this note was dictated by speech recognition and even though it was carefully revised there may still be minor errors in [employer] due to voice recognition software. Documentation for date of: 04/20/25 Subjective Subjective Interval history: Patient seen and examined at bedside today with no acute overnight events; rash seems to have improved with 1% hydrocortisone, thus will continue 1% hydrocortisone today and increase to 2% tomorrow. Patient opens eyes but is otherwise unresponsive. Platelet count improved to 135 today. Has swollen extremities. Exam Vital Signs Temp Pulse Resp BP Pulse Ox O2 Del Method O2 Flow Rate 97.9 F 67 25 H 145/72 H 95 Room Air 2 04/20/25 08:00 04/20/25 10:13 04/20/25 08:00 04/20/25 10:13 04/20/25 08:00 04/20/25 08:00 04/19/25 01:44 FiO2 62 04/16/25 07:43 Narrative Exam General: A/O x0 (nonverbal; opens eyes to voice), thin Eyes: PERRL, EOMI. Anicteric, vision grossly intact. Ears: No ear pain, no ear discharge, Hearing grossly intact. Nose: No nasal discharge. Mouth/Throat: dry mucous membranes with crusted lips, no redness, no lesions. Neck: Neck supple, non-tender, no cervical lymphadenopathy. Lungs: Coarse breath sounds Cardio: Normal S1/S2, regular rhythm, systolic murmur , no JVD or carotid bruits. Abdomen: Soft, non-tender, no palpable masses, peristalsis present, no guarding or rebound. Extremities: Left foot tarsal amputation, right foot second digit amputation, swollen Skin: Numerous small skin lesions and dry skin; improved from yesterday Neuro: Opens eyes to voice; otherwise nonverbal Psych: Opens eyes to voice; otherwise nonverbal; unable to assess further Objective Labs 04/20/25 04:54 04/20/25 04:54 Labs: Laboratory Results - last 24 hr 04/11/25 04/20/25 20:05 04:54 WBC 9.5 RBC 3.66 L Hgb 9.7 L Hct 29.5 L MCV 81 MCH 26.5 MCHC 32.9 RDW Std Deviation 56.4 H Plt Count 135 L D Neut % (Auto) 58 Lymph % (Auto) 9 L [place] % (Auto) 9 Eos % (Auto) 23 H Baso % (Auto) 0 Neut # (Auto) 5.5 Lymph # (Auto) 0.9 L [place] # (Auto) 0.9 H Eos # (Auto) 2.2 H Baso # (Auto) 0.0 Immature Gran # (Auto) 0.07 H Absolute Nucleated RBC 0.00 Immature Gran % 1 H Nucleated RBC % 0 Sodium 146 H Potassium 5.0 Chloride 117 H Carbon Dioxide 21.2 Anion Gap 8 BUN 37 H Creatinine 0.5 L Estim Creat Clear Calc 96.6 eGFR > 60 BUN/Creatinine Ratio 74 H Glucose 240 H Calculated Osmolality 307 H Calcium 8.4 Corrected Calcium 9.4 Phosphorus 3.1 Magnesium 2.0 Total Bilirubin 0.3 AST 18 ALT 16 Alkaline Phosphatase 113 Total Protein 4.8 L Albumin 2.8 L Globulin 2.0 L Albumin/Globulin Ratio 1.4 Total Cortisol 7.7 Random Vancomycin 12.6 ABG Interpretation ABG results: 04/11/25 04/14/25 04/18/25 21:53 23:37 08:00 ABG pH 7.29 L 7.47 H ABG pCO2 53 H 30 L ABG pO2 90 61 L ABG HCO3 25 21 ABG O2 Saturation 97 94 ABG Base Excess -2 -2 VBG pH 7.36 VBG pCO2 31 L VBG pO2 108 H VBG Base Excess -7 L Quality Measures Quality Measures VTE prophylaxis Advance care planning discussed with:: other Assessment & Plan Assessment Current Active Medications: Generic Name Dose Route Start Last Admin Trade Name Freq PRN Reason Stop Dose Admin Dextrose 50 ml 04/12/25 00:08 04/12/25 12:20 Dextrose 50%-Water Inj 50 Ml Syringe IV 05/12/25 00:07 50 ml Q15MIN PRN Administration BG <50 OR BG <70 & pt unresponsive Enoxaparin Sodium 40 mg 04/12/25 21:00 04/13/25 08:52 Enoxaparin Sod Inj 40 Mg/0.4 Ml Syringe SC 04/26/25 20:59 40 mg QDAY HARPER Administration Folic Acid 1 mg 04/18/25 09:00 04/20/25 09:05 Folic Acid 1 Mg Tablet NG 05/18/25 08:59 1 mg QDAY HARPER Administration Glucagon 1 mg 04/12/25 00:08 Glucagon Inj 1 Mg Vial IM Q15MIN PRN BG <70, and no IV access Hydrocortisone 0 gm 04/19/25 11:30 04/20/25 09:08 Hydrocortisone Cr 1% 30 Gm Tube TOP 05/19/25 11:29 1 appln BID HARPER Administration Metronidazole 500 mg in 100 mls @ 200 mls/hr 04/14/25 08:47 04/20/25 05:13 Flagyl 500 Mg Iv IV 04/21/25 08:46 200 mls/hr Q8HR HARPER Administration Cefepime HCl 2 gm/ Sodium 50 mls @ 100 mls/hr 04/14/25 15:11 04/20/25 06:00 Chloride IV 04/21/25 15:10 100 mls/hr Q8HR HARPER Administration Vancomycin/Sodium Chloride 100 mls @ 120 mls/hr 04/16/25 10:00 04/20/25 10:12 Vancomycin/Ns 500 Mg Ivpb IV 04/23/25 09:59 120 mls/hr QDAY@1000 HARPER Administration Insulin Degludec 10 unit 04/20/25 09:00 04/20/25 09:05 Insulin Degludec 5 Unit/0.05 Ml (Per 5 Units) SC 05/20/25 08:59 10 unit QDAY HARPER Administration Insulin Human Lispro 0 unit 04/16/25 18:00 04/20/25 06:06 Insulin Lispro (Admelog) 1 Unit/0.01 Ml Unit SC 05/16/25 17:59 2 unit Q6HR HARPER Administration Protocol Levetiracetam 1,000 mg 04/12/25 21:00 04/20/25 09:05 Levetiracetam Inj 100 Mg/Ml Vial 5ml IVP 05/12/25 20:59 1,000 mg Q12HR HARPER Administration Multi-Ingredient Ointment 0 oz 04/12/25 12:30 04/20/25 09:08 Min Oil/Pet,White (Eucerin) Cr 16 Oz Btl TOP 05/12/25 12:29 1 appln DAILY HARPER Administration Multivitamins/Minerals 15 ml 04/20/25 09:00 04/20/25 09:04 Multivitamin 15 Ml Udc NG 05/20/25 08:59 15 ml QDAY HARPER Administration Ondansetron HCl 4 mg 04/11/25 22:23 Ondansetron Inj 2 Mg/Ml Inj 2 Ml IVP 05/11/25 22:22 Q6H PRN NAUSEA OR VOMITING Protocol Pantoprazole Sodium 40 mg 04/12/25 10:30 04/20/25 09:04 Pantoprazole Inj 40 Mg Vial IVP 05/12/25 10:29 40 mg QDAY HARPER Administration Pharmacy Consult 1 each 04/12/25 09:00 Vancomycin Pharmacy To Dose 1 Each Each IV 05/12/25 08:59 QDAY PRN RX Sodium Chloride 4 ml 04/15/25 13:00 04/20/25 06:39 Sodium Cl Rt Mere 3% 4 Ml Nebu (Non-Formulary) INH 05/15/25 12:59 4 ml Q6HRRT HARPER Administration Thiamine HCl 100 mg 04/18/25 09:00 04/20/25 09:05 Thiamine 100 Mg Tablet NG 05/18/25 08:59 100 mg QDAY HARPER Administration Plan Jill Holden 69F pmhx significant for primary hypertension, NIDDM2, CAD s/p CABG, hx of CVA, seizure disorder, age-related dementia, left diabetic foot metatarsal amputation, right foot second digit amputation and COPD, who presented to [facility] ED for acute encephalopathy, initially admitted to ICU for distributive shock from unknown source requiring pressor support and downgraded to floors on 04/13. #Distributive shock and #Acute infectious encephalopathy 2/2 #L Base PNA, likely aspiration with gram-negative versus anaerobic bacteria #Hypothermia #Extremity swelling Patient presented obtunded with AMS, BP 79/48 MAP 51-52, HR 46, temp 84.7, WBC 2.2. Directly admitted to ICU requiring dopamine and Levophed pressors. Eventually weaned off and downgraded 04/13. Per ICU, mentation has improved since admission following broad spectrum abx and fluid resuscitation. UA unremarkable, lactic acid 0.9 on admission. Lipase 115. Ammonia 37. CRP neg, ESR 55. BCx 1/[address] Head no acute processes. CTAP showed L base PNA, consider aspiration PNA, R upper lobe pulmonary nodules, multiple subcentimeter axillary lymph nodes, small b/l pleural effusions, significant thickening of gastric mucosa, abundant stool in rectosigmoid but no bowel obstruction, rectal wall thickening, consider proctitis, severe osteopenia Ddx: likely septic from L PNA, possible proctitis, gastritis, vs osteomyelitis as patient improved with fluids and abx. Less likely cardiogenic as patient condition has improved off pressors without continued ionotropic support. Ceftriaxone (04/13-04/14). Repeat BCx NGTD On 04/15/2025, patient's clinical condition deteriorated significantly; she was obtunded, and only lifted head and looked towards people after significant stimulation; patient's family was informed about deteriorating clinical state. NG tube placement unsuccessful due to bleeding, and deep suction cannot be done due to low platelet count. 04/15 repeat CXR no improvement in diffuse significant L lung PNA RUE swelling noted following PPN initiation, and RUE US negative for DVT. PPN (04/15-04/18) 04/20- Swelling in all extremities Plan: - Continue vancomycin (04/11- ), metronidazole (04/11, 04/14 - ), cefepime (04/14- - Chest physiotherapy on board - Pulmonology consulted, recs appreciated: no bronchoscopy as family refused, recommend to transfuse platelets and insert NG tube vs PEG if NG cannot be placed - NG tube inserted 04/17 and Glucerna at rate 50 mL/hr now - Heel Room Supervisor consulted, recs appreciated: Glucerna 1.2 at 30 mL/hr via NG tube by pump, advance 10 mL every 12 h to goal rate of 60 mL/hr x24h. Continue thiamine 100 mg QD and multivitamins/minerals - As platelet increasing, restart lovenox due to high rest of DVT/PE secondary to bedbound state - sputum cultures show occasional mixed oral fahad - Furosemide 40 given by cardiology for diuresis #Severe thrombocytopenia #Anemia of chronic disease On admission Hgb platelets 34, on 04/15/2025, count was 29. Peripheral smear shows normocytic normochronic anemia with normal serium iron and TIBC, consistent with anemia of chronic disease, severe thrombocytopenia, and mild neutropenia. Vitals remains stable at this time. 04/15 liver ultrasound shows normal gallbladder, normal blood, bile duct, mild hepatomegaly, partial visualization of right pleural fluid. B12 1400, folate wnl, HIV and hep neg, retic count 0.8, LDH 277 Ddx for severe thrombocytopenia: MDS vs infection vs liver disease vs medication induced vs autoimmune Coccidioides IgM and IgG collected on 04/15/2025 negative Plan: - Trend CBC - F/u peripheral blood smear, DONNIE, thiamine, Legionella levels for thrombocytopenia workup - No platelet transfusion at this time as patient is hemodynamically stable with blood pressure holding and HR wnl, consider platelet transfusion if platelet becomes hemodynamically unstable - Lovenox restarted for DVT prophylaxis as patient is high risk for DVTs secondary to bedbound state #Proctitis #Gastritis Patient poor historian, on admission replies yes to pain however when prompted, reports yes to all bodily pain. Unable to localize. Per CTAP imaging as above. Plan: - Continue abx as above - IV pantoprazole 40 mg QD #R upper lobe pulmonary nodules #Multiple subcentimeter axillary lymph nodes Findings CTAP as above. No history of cancer per chart review. Plan: - Abx as above - Recommend to follow up outpatient for further management #Bradycardia -improved #Moderate aortic stenosis #Essential HTN Patient presented with HR 46 on admission. Resolved following resolution of hypothermia, fluid resuscitation and abx. TSH wnl 2.73, 04/12 TTE: Normal left ventricular size and function. Mild LVH. Stage I diastolic dysfunction. Estimated EF 60-65%. Normal RV size and function. RVSP 40 mmHg with RAP 3. Moderate AV stenosis, mean gradient 31 mmHg, vmax 3.7 to 3.8m/s. MELE 1 sq cm. Mild thickened MV leaflets. Mild MR, AI and TR. Compared to prior study of 06/24/24- increased velocities. Likely 2/2 infectious etiology vs heart block. Cortisol 7.7 Plan: - Cardiology consulted, recs appreciated: likely 2/2 hypothermia, unlikely good candidate for TAVR for or pacemaker for first degree AV block due to patient being asymptomatic at this time - Telemetry for cardiac monitoring - Keep K>4 and Mg>2 at all times #Electrolyte abnormalities #Hypernatremia #Hypokalemia, resolved #Hyperchloremia #Hypobicarbinemia, improving #Hypophosphatemia, resolved #Hypomagnesemia, resolved #Hypocalcemia, resolved On admission, Na 155, K 2.4, Cl 129, bicarb 18.5, glucose 65, Ca 7.0, phos 2.3, Mg 1.1. s/p D5W in ICU Plan: - Recheck and replete as necessary - Consider further D5W if Na continues to uptrend, at this time PPN should be sufficient #NIDDM2 #Hx of L diabetic foot tarsal amputation #Hx of osteomyelitis of R foot distal fourth metatarsal and proximal phalanx fourth digit #Hx of R big toe abscess s/p I&D of R big toe and 2nd toe amputation (12/04/24) Admission A1c 8.1. Per med rec takes metformin 1g BID. Possible osteomyelitis as source of distributive shock. Plan: - SSI in place #Hx of seizures Per history. On home Keppra 1g BID. Unknown when last seizure occurred. Plan: - Continue home Keppra 1g BID - Consider ordering EEG and/or consulting neurology if encephalopathy worsens #Diffuse excoriations #Xeroderma vs atopic dermatitis vs eczema #Tinea capitis In ICU initially some concern for scabies, and per son, patient received permethrin and developed skin lesions. Diffuse crusted rash over forehead. Patient continues to scratch however likely 2/2 allergy to permethrin. Per son, patient's skin has been very dry and leathery since returning from rehab. Despite moisturizers, skin remains very dry. Plan: - Terbinafine topical 2g TID - Continue hydrocortisone 1% topical; consider increase to hydroquinone 2% topical tomorrow - Wound care consulted, recs appreciated Lines: PIV Diet: Blenderized Puree, NG Glucerna feeds Bowel: None GI prophylaxis: IV pantoprazole 40 mg QD DVT prophylaxis: SCDs Disposition: tele for IV abx CODE STATUS: FULL CODE This case was discussed with my attending physician, Dr. Mcintosh, and senior resident, Dr. Gunn. Dylan Marroquin MD-PhD, PGY1 Attending Provider Attestation/Addendum I have discussed and was present for the essential components of the history, physical examination, diagnosis, and treatment plan with the resident. I agree with the patient's care as documented by the resident and amended herein by me. Jamir Mcintosh, DO. Although this document has been carefully reviewed, there may still be some phonetic and other typographical errors. These errors are purely grammatical due to imperfections in the software program and should not be construed in any way to compromise the substance of the patient's medical care during this visit. Patient seen and evaluated this AM. No acute events overnight, vital signs stable, patient afebrile, patient opened her eyes in the morning and is able to track however still not responsive to questions or commands. On room air at this point SpO2 99%. Patient was downgraded from the ICU on 04/15 admitted for septic shock likely secondary to severe left base pneumonia. Also failure to thrive. At this point we will continue broad-spectrum antibiotics as the patient has improved, still on vancomycin, Flagyl and cefepime, possibly can de- escalate tomorrow, patient does have a NG tube in place for oral feeds, most likely will need a G-tube placed, as I do not anticipate much more improvement in her mentation, at baseline she is most likely ANO x 1 to ANO x 2.. Will likely need a goals of care meeting with the son who is very particular in his mother's care. In regards to the patient's thrombocytopenia, it has improved likely due to infectious cause. Patient also has a widespread rash, per her family this has been going on a couple of months, it may be drug related however unclear at this point which one of her home meds may be causing the reaction. Her skin is breaking down wound care is onboard, we did start topical steroid cream which did appear to help her legs and her hands, however the rash is extensive on her back and stomach. I will try a dose of steroids today to see if she improves, may consider continuing tomorrow if she does. Continue to monitor closely please
--- NOTE | 2025-04-20 14:56 | PC.SS ---
Rounding Note: Patient is a possible candidate for G-tube placement.
--- NOTE | 2025-04-20 17:59 | XR_ITS ---
EXAMINATION: AP chest single view TECHNIQUE: AP portable upright chest single view Date and time: April 20, 2025, 1807 hours, comparison April 17, 2025 INDICATIONS: Reposition orogastric tube today. FINDINGS: Normal heart size. Diffuse significant left lung pneumonia with possible left pleural fluid. Median sternotomy wires. Orogastric tube in the stomach, the tip is below the level of the film IMPRESSION: Orogastric tube in the stomach, the tip is below the level of the film
--- NOTE | 2025-04-20 18:02 | PC.NURSE ---
Dr. Morton aware RN found pt. with NG tube partially out of nose, pt. pulled it from 65 cm to 60 cm. gauge and weigh machine adjuster tube back to 65 cm and pt. pending chest XR. tube feeds on hold until position of NG tube is confirmed. Dr. Morton orders Mittens
--- NOTE | 2025-04-20 19:18 | PC.NURSE ---
Dr. Quintana aware cxr results. orders to resume tube feeds
--- NOTE | 2025-04-20 19:23 | PD.EVENT ---
Documentation for date of: 04/20/25 Event Note Event Note: NG tube in the stomach. May use NG tube.
--- NOTE | 2025-04-20 19:27 | PC.NURSE ---
NG tube placement verified and per MD Harrison go ahead and resume feeding for patient.
[2025-04-20] MEDS: MethylPREDNISolone SOD SUCC 62.5 MG/ML 2ML VIAL 125 MG IVP (22:25)
[2025-04-21] VITALS (12 sets, daily range): BP systolic 133–161; BP diastolic 58–79; PULSE 56–74; RESP 16–97; TEMP 36–36.6; O2SAT 94–100; BMI 24.5
[2025-04-21] MEDS: SODIUM CL RT SOL 3% 4 ML NEBU (NON-FORMULARY) INH ×4 (00:51→19:22)
[2025-04-21] MEDS: CEFEPIME INJ 2 GM in SODIUM CHLORIDE 0.9% (Popper) 50 ML IV (05:17)
[2025-04-21] MEDS: metroNIDAZOLE/NS 500 MG IVPB 500 MG/100 ML BAG 200 MG IV (05:18)
[2025-04-21] MEDS: INSULIN LISPRO (AdmeLOG) 1 UNIT/0.01 ML UNIT SC ×4 (05:18→23:24)
[2025-04-21 05:57] LABS: Basophils # (Auto) 0.0 Thou/mm3 (0.0-0.2); Basophils % (Auto) 0 % (0-2.5); Eosinophils # (Auto) 0.1 Thou/mm3 (0.0-0.5); Eosinophils % (Auto) 1 % (0-10); Hematocrit 30.5 % (36.0-46.0); Hemoglobin 10.0 g/dL (12.0-16.0); Immature Granulocytes Auto 0.06 Thou/mm3 (0.00-0.00); Lymphocytes # (Auto) 0.5 Thou/mm3 (1.0-4.8); Lymphocytes % (Auto) 7 % (10-50); Mean Corpuscular HGB Conc 32.8 g/dl (31.0-37.0); Mean Corpuscular Hemoglobin 26.3 pg (25.0-35.0); Mean Corpuscular Volume 80 fL (80-100); Monocytes # (Auto) 0.1 Thou/mm3 (0.0-0.8); Monocytes % (Auto) 1 % (0-12); Neutrophils # (Auto) 6.3 Thou/mm3 (1.8-7.7); Neutrophils % (Auto) 89 % (37-80); Nucleated Red Blood Cell # 0.00 Thou/mm3 (0.00-0.00); Nucleated Red Blood Cell % 0 /100 WBC (0); Platelet Count 184 Thou/mm3 (140-440); RDW Standard Deviation 55.0 fL (36.4-46.3); Red Blood Count 3.80 Miln/mm3 (4.00-5.20); White Blood Count 7.1 Thou/mm3 (3.6-11.0)
[2025-04-21 06:25] LABS: Alanine Aminotransferase 14 U/L (10-49); Albumin, Serum 3.1 gm/dL (3.4-4.8); Albumin/Globulin Ratio 1.5 (1.2-2.2); Alkaline Phosphatase 119 U/L (46-116); Anion Gap 8 (7-16); Aspartate Amino Transferase 15 U/L (0-34); BUN/Creatinine Ratio 55 Ratio (12-20); Bilirubin,Total 0.2 mg/dL (0.3-1.2); Blood Urea Nitrogen 33 mg/dL (9-23); Calcium 8.6 mg/dL (8.3-10.6); Calcium (Corrected) 9.3 mg/dL (8.5-10.1); Carbon Dioxide 23.0 mMol/L (20.0-31.0); Chloride 114 mMol/L (98-107); Creatinine (Component) 0.6 mg/dL (0.6-1.3); Estimated Creatinine Clearance 80.5 mL/min (>60); Globulin 2.1 gm/dL (2.3-3.5); Glucose 303 mg/dL (74-106); Magnesium 1.8 mg/dL (1.6-2.6); Osmolality,Calculated 306 (275-295); Phosphorous 3.7 mg/dL (2.4-5.1); Potassium 5.3 mMol/L (3.4-5.1); Sodium 145 mMol/L (136-145); Total Protein 5.2 gm/dL (5.7-8.2); eGFR > 60 See Note
[2025-04-21] MEDS: INSULIN DEGLUDEC 5 UNIT/0.05 ML (PER 5 UNITS) 10 UNIT SC (09:04)
[2025-04-21] MEDS: ENOXAPARIN SOD INJ 40 MG/0.4 ML SYRINGE SC (09:04)
[2025-04-21] MEDS: levETIRAcetam INJ 100 MG/ML VIAL 5ML 1000 MG IVP ×2 (09:04→20:05)
[2025-04-21] MEDS: FOLIC ACID 1 MG TABLET NG (09:08)
[2025-04-21] MEDS: MULTIVITAMIN 15 ML UDC NG (09:08)
[2025-04-21] MEDS: THIAMINE 100 MG TABLET NG (09:09)
[2025-04-21] MEDS: MIN OIL/PET,WHITE (Eucerin) CR 16 OZ BTL TOP (09:09)
[2025-04-21] MEDS: Hydrocortisone Cr 1% 30 GM TUBE TOP ×2 (09:09→20:05)
[2025-04-21] MEDS: VANCOMYCIN/NS 750 MG IVPB 750 MG/150 ML BAG 120 MG IV (09:52)
--- NOTE | 2025-04-21 14:04 | PD.IMPROG ---
Documentation for date of: 04/21/25 Subjective Subjective Interval history: Patient seen and assessed at bedside. Diuresed well over the last 24 hours with 20 mg IV Lasix 2600 mL urine output but intake was not accurately measured. Recommend strict input output Patient's BUN actually improved from 37 to 33 with the diuresis and creatinine is stable at 0.5 Potassium improved from 5.3-4.8. Magnesium slightly low at 1.8 Recommend to replace magnesium sulfate. Continue as needed Lasix 20 mg IV or oral or NG tube based on her weights and if patient continues to have leg swelling. Patient is still on NG tube feeds and primary team is discussing with the patient regarding PEG tube placement. GI team also following. Otherwise patient is hemodynamically stable and as noted previously patient needs to follow-up with cardiology and if her clinical status improves then we can plan for further workup for the patient otherwise at this point of time we will continue with medical treatment. Blood pressure is still soft and hold off on other medications at the present point of time and recommend to start with losartan 25 mg once daily when blood pressure is elevated. Exam Vital Signs Temp Pulse Resp BP Pulse Ox O2 Del Method O2 Flow Rate 97.5 F 68 18 147/64 H 100 Room Air 2 04/21/25 12:00 04/21/25 12:13 04/21/25 12:13 04/21/25 12:00 04/21/25 12:13 04/21/25 12:00 04/19/25 01:44 FiO2 62 04/16/25 07:43 Narrative Exam General: Awake and in no acute distress. Not conversational. Confused. Unable to answer questions appropriately. Cachectic. HEENT: Normocephalic, atraumatic, mucous membranes dry. Upper dentures, missing bottom teeth. NG tube in place. Heart: Regular rate and rhythm, normal S1 and S2, 4/5 systolic murmur radiating to carotids. Lungs: Coarse breath sounds in all lobes. Abdomen: Soft, nondistended, nontender, positive bowel sounds. No guarding or rebound tenderness. Neurologic: Alert and oriented x0. Unable to assess as patient is noncompliant with commands. Extremities: Swelling of bilateral hands and feet. Left foot transmetatarsal amputation. Right foot second digit amputation. Skin: No rash or ecchymoses. Tinea capitis at frontal scalp. Petechial lesions bilateral lower extremities. Very dry skin. Objective Labs 04/22/25 05:30 04/22/25 05:30 Labs: Laboratory Results - last 24 hr 04/21/25 05:11 WBC 7.1 RBC 3.80 L Hgb 10.0 L Hct 30.5 L MCV 80 MCH 26.3 MCHC 32.8 RDW Std Deviation 55.0 H Plt Count 184 D Neut % (Auto) 89 H Lymph % (Auto) 7 L [place] % (Auto) 1 Eos % (Auto) 1 Baso % (Auto) 0 Neut # (Auto) 6.3 Lymph # (Auto) 0.5 L [place] # (Auto) 0.1 Eos # (Auto) 0.1 Baso # (Auto) 0.0 Immature Gran # (Auto) 0.06 H Absolute Nucleated RBC 0.00 Immature Gran % 1 H Nucleated RBC % 0 Sodium 145 Potassium 5.3 H Chloride 114 H Carbon Dioxide 23.0 Anion Gap 8 BUN 33 H Creatinine 0.6 Estim Creat Clear Calc 80.5 eGFR > 60 BUN/Creatinine Ratio 55 H Glucose 303 H D Calculated Osmolality 306 H Calcium 8.6 Corrected Calcium 9.3 Phosphorus 3.7 Magnesium 1.8 Total Bilirubin 0.2 L AST 15 ALT 14 Alkaline Phosphatase 119 H Total Protein 5.2 L Albumin 3.1 L Globulin 2.1 L Albumin/Globulin Ratio 1.5 ABG Interpretation ABG results: 04/11/25 04/14/25 04/18/25 21:53 23:37 08:00 ABG pH 7.29 L 7.47 H ABG pCO2 53 H 30 L ABG pO2 90 61 L ABG HCO3 25 21 ABG O2 Saturation 97 94 ABG Base Excess -2 -2 VBG pH 7.36 VBG pCO2 31 L VBG pO2 108 H VBG Base Excess -7 L Assessment & Plan A&P Narrative Patient is a 69-year-old female with past medical history of CAD s/p CABG with history of previous multiple PCI, moderate aortic stenosis, CVA/stroke, seizure disorder with Keppra, essential hypertension, hyperlipidemia, baseline dementia, slurred speech, history of left transmetatarsal amputation with questionable PAD, history of fall with displaced intra-articular fracture of the left hip status post open reduction internal fixation in June 2024 was brought in to the emergency department of worsening altered mental status. Admitted to ICU for acute metabolic encephalopathy in setting of hypertonic hyponatremia and acute hypothermia. Cardiology consulted due to concern for cardiogenic shock given history of CAD and moderate aortic stenosis. #Distributive shock, likely septic or distributive, unlikely cardiogenic, resolved #Acute hypothermia, improving #Bradycardia secondary to first-degree heart block #History of aortic stenosis, moderate #History of hypertension #History CVA #History of CAD status post CABG with history of previous multiple PCI # HFpEF (EF 60 to 65%) with stage I diastolic dysfunction Home meds include lisinopril 10 mg daily, aspirin 81 mg daily, Plavix 75 mg daily. On physical exam, auscultated 4/5 ejection systolic murmur radiating to carotids. TSH were normal, A1c was 8.1% in lipid profile showed total cholesterol of 123, HDL of 48 and LDL of 53. Chest x-ray with questionable left-sided pneumonia secondary to aspiration. CT chest abdominal with altered showed small bilateral pleural effusions along with significant thickening of gastric mucosa and some constipation. TTE 06/23/2024 showed normal LV size and function. Mild LVH. Stage I diastolic dysfunction. Estimated EF 60-65%. Normal RV size and function. Moderate AV stenosis, mean gradient 21mmHg, vmax 3.1 m/s. Mild thicken MVL. Midl MR, AI. Trace TR. Bradycardia likely secondary to severe hypothermia. Heart rate now improved to 70s to 80s with conservative treatment of hypothermia. TTE 04/12/25 showed normal left ventricular size and function. Mild LVH. Stage I diastolic dysfunction. Estimated EF 60-65%. Normal RV size and function. RVSP 40 mmHg with RAP 3. Moderate AV stenosis, mean gradient 31 mmHg, vmax 3.7 to 3.8m/s. MELE 1 sq cm. Mild thicken MV leaflets. Mild MR, AI and TR. Compared to prior study of 06/24/24- increased velocities. EKG 04/14 shows sinus bradycardia with first-degree AV block, IA 234, QTc 439. Plan: - Unlikely cardiogenic shock as patient only has moderate aortic stenosis with adequate flow. Likely distributive shock secondary to severe hypothermia or possible sepsis with underlying left lower lobe pneumonia. Patient was bradycardic along with hypotensive on admission which improved with rewarming with a Laverne hugger. - Even if the patient has severe aortic stenosis it is unlikely the patient will be a candidate for TAVR given his multiple comorbidities along with her severe protein calorie malnutrition and will not have good outcome as she is unable to do any kind of rehab. Can consider TAVR for her eventually if her overall clinical status improves over the next few months - Heart rate improving with Laverne hugger. As above, EKG shows first-degree AV block however patient remains asymptomatic with no long pauses noted and is therefore not a candidate for pacemaker placement at this time. - Recommend starting losartan 25 mg daily as patient is now on NG tube if BP permits as part of GDMT. - Avoid beta blockers as patient is already bradycardic ? Stable off Levophed and dopamine. Monitor BP. 04/21/2025 Diuresed well over the last 24 hours with 20 mg IV Lasix 2600 mL urine output but intake was not accurately measured. Recommend strict input output Patient's BUN actually improved from 37 to 33 with the diuresis and creatinine is stable at 0.5 Potassium improved from 5.3-4.8. Magnesium slightly low at 1.8 Recommend to replace magnesium sulfate. Continue as needed Lasix 20 mg IV or oral or NG tube based on her weights and if patient continues to have leg swelling. Patient is still on NG tube feeds and primary team is discussing with the patient regarding PEG tube placement. GI team also following. Otherwise patient is hemodynamically stable and as noted previously patient needs to follow-up with cardiology and if her clinical status improves then we can plan for further workup for the patient otherwise at this point of time we will continue with medical treatment. Blood pressure is still soft and hold off on other medications at the present point of time and recommend to start with losartan 25 mg once daily when blood pressure is elevated. #Hypernatremia #Acute hypokalemia, resolved #Hypomagnesemia # Hypophosphatemia ##Hypocalcemia, resolved Presented with potassium of 2.4 and magnesium 1.1. Overnight given total potassium chloride 40 mEq, magnesium 2 g, calcium gluconate x1. 04/12/2025: Potassium improved to 4.7 at midnight. Calcium improved to 8.7, phosphorus 2.6, magnesium 2.3. ?Keep potassium above 4 and magnesium above 2 - Feeding via NG tube, adjust sodium content if any. #Acute on chronic normocytic anemia #Protein calorie malnutrition Patient presented with altered mental status and acute metabolic encephalopathy, unclear etiology. Appears to have poor oral intake as the patient was also noted to have severely low albumin at 1.5 as well as total protein at 2.5. Hemoglobin 7.6. In setting of acute gastritis and severe malnutrition. BMI 19.6. ? NG tube feeds as above - Workup per primary team #Kze-phyuijr-zitxpascb type 2 diabetes #Hx of LT foot metatrasal amputation and RT foot 2nd digit amputation A1c 8.1. Home meds include metformin 1000 mg twice daily. ?SSI per primary team #Acute encephalopathy in setting of #Hypotonic hyponatremia, severe #Left base PNA, possibly aspiration #Right upper lobe pulmonary nodules #Bilateral pleural effusions, small #Pancytopenia #Proctitis, likely acute #Seizure disorder #Hyperlipidemia #Constipation Vs. bowel ileus #Tinea Capitis #Nasal lesion, possibly basal cell carcinoma #Axillary lymphadenopathy #Baseline dementia #History of questionable PAD with transmetatarsal amputation and right toe amputation #COPD Time Spent With Patient Time: Total time spent is greater than 50% in coordination of care (as documented) at patient's floor/unit and/or counseling patient:
[2025-04-21] MEDS: cefTRIAXone 2 GM in SODIUM CHLORIDE 0.9% (Popper) 50 ML IV (14:07)
[2025-04-21 14:44] LABS: Potassium 5.0 mMol/L (3.4-5.1)
--- NOTE | 2025-04-21 15:59 | PD.HHPROG ---
Documentation for date of: 04/21/25 Subjective - Hospitalist Subjective Interval history: Patient seen and examined at bedside this morning. Appears comfortable but sleepy. She was more awake when family was at bedside, was opening her eyes and trying to track, still unable to interact and follow command appropriately. Had a long discussion with family at bedside regarding patient's current condition, prognosis and further management plan. Presented with options for CODE STATUS, family wishes for patient to be full code and pursue all aggressive treatment including invasive workup if indicated. Patient underwent swallow evaluation this morning, was unable to swallow safely, continues to be on NG tube feeding. Discussed with family regarding possibility of PEG tube placement need, patient's son is concerned that patient might try to remove her PEG tube after placement. He wishes to give her more time to gain more strength for swallowing and continue with NG tube feeding for the time being. While discussing about pulmonary nodule, axillary lymph node enlargement, rectal wall thickening, patient's son mentions about GI tumor, but was unable to elaborate further regarding with, and and what kind of procedure the patient went through. We will obtain GI consult as recommended by radiology for evaluation of rectal wall thickening. Review of Systems Review of Systems ROS Unobtainable: unobtainable due to mental status Exam Vital Signs Temp Pulse Resp BP Pulse Ox O2 Del Method O2 Flow Rate 97.5 F 68 18 147/64 H 100 Room Air 2 04/21/25 12:00 04/21/25 12:13 04/21/25 12:13 04/21/25 12:00 04/21/25 12:13 04/21/25 12:00 04/19/25 01:44 FiO2 62 04/16/25 07:43 Narrative GENERAL: Sleepy, wakes up when family is around, unable to interact appropriately HEENT: Mucous membranes moist. NG tube in place receiving tube feeds NECK: Supple, no carotid bruits. CARDIOVASCULAR: RRR. Normal S1/S2, No m/r/g RESPIRATORY: CTAB. No wheezing, rhonchi, crackles. GASTROINTESTINAL: Abdomen soft, nontender, no organomegaly, bowel sound present MUSCULOSKELETAL:? Left foot tarsal amputation, right foot second digit amputation NEUROLOGICAL: Unable to evaluate fully, patient unable to participate in exam, moving all her limbs spontaneously SKIN: Multiple rashes around whole body, dry skin, improving significantly as per family Objective - Hospitalist Labs Diagram: 04/21/25 05:11 04/21/25 14:22 Labs: Laboratory Results - last 24 hr 04/21/25 04/21/25 05:11 14:22 WBC 7.1 RBC 3.80 L Hgb 10.0 L Hct 30.5 L MCV 80 MCH 26.3 MCHC 32.8 RDW Std Deviation 55.0 H Plt Count 184 D Neut % (Auto) 89 H Lymph % (Auto) 7 L [place] % (Auto) 1 Eos % (Auto) 1 Baso % (Auto) 0 Neut # (Auto) 6.3 Lymph # (Auto) 0.5 L [place] # (Auto) 0.1 Eos # (Auto) 0.1 Baso # (Auto) 0.0 Immature Gran # (Auto) 0.06 H Absolute Nucleated RBC 0.00 Immature Gran % 1 H Nucleated RBC % 0 Sodium 145 Potassium 5.3 H 5.0 Chloride 114 H Carbon Dioxide 23.0 Anion Gap 8 BUN 33 H Creatinine 0.6 Estim Creat Clear Calc 80.5 eGFR > 60 BUN/Creatinine Ratio 55 H Glucose 303 H D Calculated Osmolality 306 H Calcium 8.6 Corrected Calcium 9.3 Phosphorus 3.7 Magnesium 1.8 Total Bilirubin 0.2 L AST 15 ALT 14 Alkaline Phosphatase 119 H Total Protein 5.2 L Albumin 3.1 L Globulin 2.1 L Albumin/Globulin Ratio 1.5 ABG Interpretation ABG results: 04/11/25 04/14/25 04/18/25 21:53 23:37 08:00 ABG pH 7.29 L 7.47 H ABG pCO2 53 H 30 L ABG pO2 90 61 L ABG HCO3 25 21 ABG O2 Saturation 97 94 ABG Base Excess -2 -2 VBG pH 7.36 VBG pCO2 31 L VBG pO2 108 H VBG Base Excess -7 L Assessment & Plan Plan: Patient is a 69 years old female with past medical history of hypertension, type 2 diabetes mellitus, CAD status post CABG, history of CVA, seizure disorder, age-related dementia, amputation of left foot metatarsal, right foot second digit, COPD who presented to the ED with complaint of altered mental status. She was initially admitted to ICU for distributive shock from possible pneumonia and was later on transferred to medical floor after improvement. #Acute infectious encephalopathy #History of age-related dementia #Dysphagia Patient has been failing her swallow evaluation, has not been alert enough to undergo speech evaluation Plan to retry swallow evaluation tomorrow with family at bedside as patient becomes more alert when family is around Currently on NG tube feeding started on 04/17/2025 Discussed with the family regarding PEG tube placement, family wishes to give patient some more time, worried about self removal of PEG tube Registered dietitian, speech therapy following closely #Staphylococcus aureus bacteremia #Left base pneumonia, likely aspiration #Hypothermia, resolved #Distributive shock, resolved Patient was previously in ICU, was on vasopressors, was eventually weaned off Patient was on broad-spectrum IV antibiotics including vancomycin, cefepime and metronidazole Blood culture grew Staphylococcus aureus on 1 sample, sensitive to Rocephin, we will de-escalate and complete 14 days course Continues to receive chest physiotherapy Currently on room air, saturating well. #Right upper lobe pulmonary nodules #Multiple subcentimeter axillary lymph nodes #Rectal wall thickening As noticed on chest/abdomen/pelvis CT done on 04/11/2025 Patient's son also stated that she had GI tomorrow previously but was unable to provide any details We will obtain GI consult for further evaluation of rectal wall thickening as recommended by radiology Patient may need further outpatient oncology workup including follow-up CT chest #Severe thrombocytopenia #Anemia of chronic disease Hemoglobin and platelet counts are improving compared to yesterday We will continue to monitor closely, no signs of active bleeding #Bradycardia #Moderate aortic stenosis #Hypertension Patient was bradycardic on admission, currently improved and stable Echocardiography showed normal left ventricular size and function, ejection fraction of 60 to 65%, RSVP 40 mmHg, moderate aortic stenosis with gradient of 31 mmHg, V-max 3.7 to 3.8 m/s Cardiology following closely, patient currently not a good candidate for TAVR or pacemaker for first-degree AV block, appreciate recommendations #Multiple electrolyte imbalances Potassium was 5.3 this morning, follow-up level improved to 5 We will monitor electrolytes closely and replete as needed #Type 2 diabetes mellitus Continues to be on insulin sliding scale #History of seizure\ Continues to be on Keppra 1 g twice daily #Diffuse excoriations #Xeroderma versus atopic dermatitis versus eczema Improving with hydrocortisone cream, we will continue with same regimen Wound care following closely, appreciate recommendations CODE STATUS: Full code DVT prophylaxis: Lovenox SC Diet: NG tube feeding Disposition: Telemetry for further management of dysphagia needing tube feedings, evaluation of rectal thickening, encephalopathy Subash Bishwakarma, MD Time Spent with Patient Time: Total time spent is greater than 50% in coordination of care (as documented) at patient's floor/unit and/or counseling patient: Time with patient: Greater than 35 minutes Reason for Continued Stay Reason for continued stay: further monitoring Quality Measures Quality Measures VTE prophylaxis Advance care planning discussed with:: child
--- NOTE | 2025-04-21 20:03 | PD.IMCONS ---
HPI Data of Consult Requesting Physician: Jake Angeles MD Primary Care Provider: JENNIFER Zhang Consult Narrative Reason for consult: Rectal wall thickening History of present illness: 69 years old female not much history obtainable because of underlying dementia I been called by the internal medicine attending on his CT scan imaging done on 04/11/2025 showing rectal wall thickening right upper lobe pulmonary nodules and subcentimeter axillary lymph nodes Patient has dysphagia and NGT feeding has not been able to have swallowing evaluation because she is too weak and uncooperative CODE STATUS was discussed by the attending physician today family wants everything done cc:: cc: Jake Angeles MD Review of Systems Review of Systems ROS Unobtainable: unobtainable due to medical condition Past Medical History Surgical History OTHER SURGICAL HX: CVA Diabetes mellitus type 2 Dementia Essential hypertension Coronary artery status post CABG Staph bacteremia Left base pneumonia Meds Home Medications and Allergies Home Medications ?Medication ?Instructions ?Recorded ?Confirmed ?Type clopidogrel 75 mg tablet (Plavix) 75 mg PO QDAY 10/31/19 04/13/25 History isosorbide mononitrate 60 mg 60 mg PO QDAY 10/31/19 04/13/25 History tablet,extended release 24 hr aspirin 81 mg tablet,delayed 81 mg PO QAM 04/23/21 04/13/25 History release Allergies Allergy/AdvReac Type Severity Reaction Status Date / Time lettuce Allergy Severe SWELLING Verified 04/11/25 19:46 Penicillins Allergy Severe HIVES AND Verified 04/11/25 19:46 RESPIRATORY PROBLEMS shellfish derived Allergy Severe Rash Verified 04/11/25 19:46 adhesive Allergy Mild Blister Verified 04/11/25 19:46 iodine Allergy Mild RASH AND Verified 04/11/25 19:46 BLISTERS jaramillo pepper (green pepper) Allergy Unknown RASH, Verified 04/11/25 19:46 SWELLING, SORE TONGUE egg Allergy Unknown RASH Verified 04/11/25 19:46 Exam Vital Signs Temp Pulse Resp BP Pulse Ox O2 Del Method O2 Flow Rate 97.1 F 67 23 H 133/58 H 99 Room Air 5 04/21/25 19:58 04/21/25 19:58 04/21/25 19:58 04/21/25 19:58 04/21/25 19:58 04/21/25 19:58 04/21/25 19:23 FiO2 62 04/16/25 07:43 Constitutional Comments: Chronically ill-appearing Routine Respiratory Exam Comments: Started rhonchi and decreased breath sounds at the bases Routine Abdominal Exam Comments: Soft nontender Results Labs 04/21/25 05:11 04/21/25 14:22 Labs: Short CBC 04/21/25 Range/Units 05:11 WBC 7.1 (3.6-11.0) Thou/mm3 Hgb 10.0 L (12.0-16.0) g/dL Hct 30.5 L (36.0-46.0) % Plt Count 184 D (140-440) Thou/mm3 BMP 04/21/25 04/21/25 05:11 14:22 Sodium 145 Potassium 5.3 H 5.0 Chloride 114 H Carbon Dioxide 23.0 BUN 33 H Creatinine 0.6 Glucose 303 H D Calcium 8.6 Liver Function 04/21/25 Range/Units 05:11 Total Bilirubin 0.2 L (0.3-1.2) mg/dL AST 15 (0-34) U/L ALT 14 (10-49) U/L Alkaline Phosphatase 119 H (46-116) U/L Albumin 3.1 L (3.4-4.8) gm/dL ABG Interpretation ABG results: 04/11/25 04/14/25 04/18/25 21:53 23:37 08:00 ABG pH 7.29 L 7.47 H ABG pCO2 53 H 30 L ABG pO2 90 61 L ABG HCO3 25 21 ABG O2 Saturation 97 94 ABG Base Excess -2 -2 VBG pH 7.36 VBG pCO2 31 L VBG pO2 108 H VBG Base Excess -7 L Assessment and Plan Additional Assessment & Plan Additional Plan: # Rectal wall thickening on CT scan imaging Right upper lobe nodules I would recommend we do a 6-month follow-up CT scan The rectal wall thickening is insignificant Patient not a candidate at this point for a GoLytely prep and a colonoscopy The rectal wall thickening in my judgment is under distention of the rectum no real tumor seen on CT scan imaging review What she needs is actually placement of a PEG tube for sustaining nutrition and getting the NGT out Unfortunately there was no family member in the room when I went to evaluate the patient I will call them tomorrow morning and discuss all this with them At the moment no invasive GI workup Thank you very much for the opportunity to participate in the care of this patient
[2025-04-22] VITALS (11 sets, daily range): BP systolic 132–166; BP diastolic 63–78; PULSE 54–66; RESP 14–22; TEMP 35.7–36.5; O2SAT 98–100; BMI 24.5
[2025-04-22] MEDS: SODIUM CL RT SOL 3% 4 ML NEBU (NON-FORMULARY) INH ×4 (00:08→18:21)
[2025-04-22] MEDS: INSULIN LISPRO (AdmeLOG) 1 UNIT/0.01 ML UNIT SC ×4 (05:06→23:34)
[2025-04-22 05:51] LABS: Basophils # (Auto) 0.1 Thou/mm3 (0.0-0.2); Basophils % (Auto) 1 % (0-2.5); Eosinophils # (Auto) 1.3 Thou/mm3 (0.0-0.5); Eosinophils % (Auto) 16 % (0-10); Hematocrit 27.6 % (36.0-46.0); Hemoglobin 9.3 g/dL (12.0-16.0); Immature Granulocytes Auto 0.06 Thou/mm3 (0.00-0.00); Lymphocytes # (Auto) 1.2 Thou/mm3 (1.0-4.8); Lymphocytes % (Auto) 15 % (10-50); Mean Corpuscular HGB Conc 33.7 g/dl (31.0-37.0); Mean Corpuscular Hemoglobin 27.2 pg (25.0-35.0); Mean Corpuscular Volume 81 fL (80-100); Monocytes # (Auto) 0.7 Thou/mm3 (0.0-0.8); Monocytes % (Auto) 8 % (0-12); Neutrophils # (Auto) 5.0 Thou/mm3 (1.8-7.7); Neutrophils % (Auto) 60 % (37-80); Nucleated Red Blood Cell # 0.00 Thou/mm3 (0.00-0.00); Nucleated Red Blood Cell % 0 /100 WBC (0); Platelet Count 264 Thou/mm3 (140-440); RDW Standard Deviation 56.1 fL (36.4-46.3); Red Blood Count 3.42 Miln/mm3 (4.00-5.20); White Blood Count 8.4 Thou/mm3 (3.6-11.0)
[2025-04-22 06:18] LABS: Alanine Aminotransferase 10 U/L (10-49); Albumin, Serum 2.9 gm/dL (3.4-4.8); Albumin/Globulin Ratio 1.5 (1.2-2.2); Alkaline Phosphatase 99 U/L (46-116); Anion Gap 8 (7-16); Aspartate Amino Transferase 13 U/L (0-34); BUN/Creatinine Ratio 70 Ratio (12-20); Bilirubin,Total 0.2 mg/dL (0.3-1.2); Blood Urea Nitrogen 35 mg/dL (9-23); Calcium 8.3 mg/dL (8.3-10.6); Calcium (Corrected) 9.2 mg/dL (8.5-10.1); Carbon Dioxide 24.6 mMol/L (20.0-31.0); Chloride 113 mMol/L (98-107); Creatinine (Component) 0.5 mg/dL (0.6-1.3); Estimated Creatinine Clearance 96.6 mL/min (>60); Globulin 2.0 gm/dL (2.3-3.5); Glucose 213 mg/dL (74-106); Magnesium 1.8 mg/dL (1.6-2.6); Osmolality,Calculated 304 (275-295); Phosphorous 3.1 mg/dL (2.4-5.1); Potassium 4.8 mMol/L (3.4-5.1); Sodium 146 mMol/L (136-145); Total Protein 4.9 gm/dL (5.7-8.2); eGFR > 60 See Note
[2025-04-22] MEDS: levETIRAcetam INJ 100 MG/ML VIAL 5ML 1000 MG IVP ×2 (08:41→21:25)
[2025-04-22] MEDS: INSULIN DEGLUDEC 5 UNIT/0.05 ML (PER 5 UNITS) 10 UNIT SC (08:42)
[2025-04-22] MEDS: FOLIC ACID 1 MG TABLET NG (08:43)
[2025-04-22] MEDS: THIAMINE 100 MG TABLET NG (08:43)
[2025-04-22] MEDS: ENOXAPARIN SOD INJ 40 MG/0.4 ML SYRINGE SC (08:43)
[2025-04-22] MEDS: MULTIVITAMIN 15 ML UDC NG (08:43)
[2025-04-22] MEDS: cefTRIAXone 2 GM in SODIUM CHLORIDE 0.9% (Popper) 50 ML IV (08:43)
[2025-04-22] MEDS: Hydrocortisone Cr 1% 30 GM TUBE TOP ×2 (08:44→21:28)
[2025-04-22] MEDS: MIN OIL/PET,WHITE (Eucerin) CR 16 OZ BTL TOP (08:44)
--- NOTE | 2025-04-22 12:16 | PD.IMPROG ---
Documentation for date of: 04/22/25 Subjective Subjective Interval history: Patient evaluated No family members in the room Case discussed with the attending physician She will benefit from placement of a gastrostomy tube No need for a colonoscopy Exam Vital Signs Temp Pulse Resp BP Pulse Ox O2 Del Method O2 Flow Rate 97.6 F 60 20 132/63 H 98 Nasal Cannula 3 04/22/25 08:00 04/22/25 08:00 04/22/25 08:00 04/22/25 08:00 04/22/25 08:00 04/22/25 08:00 04/22/25 08:00 FiO2 62 04/16/25 07:43 Objective Labs 04/22/25 05:30 04/22/25 05:30 Labs: Laboratory Results - last 24 hr 04/21/25 04/22/25 14:22 05:30 WBC 8.4 RBC 3.42 L Hgb 9.3 L Hct 27.6 L MCV 81 MCH 27.2 MCHC 33.7 RDW Std Deviation 56.1 H Plt Count 264 D Neut % (Auto) 60 Lymph % (Auto) 15 [place] % (Auto) 8 Eos % (Auto) 16 H Baso % (Auto) 1 Neut # (Auto) 5.0 Lymph # (Auto) 1.2 [place] # (Auto) 0.7 Eos # (Auto) 1.3 H Baso # (Auto) 0.1 Immature Gran # (Auto) 0.06 H Absolute Nucleated RBC 0.00 Immature Gran % 1 H Nucleated RBC % 0 Sodium 146 H Potassium 5.0 4.8 Chloride 113 H Carbon Dioxide 24.6 Anion Gap 8 BUN 35 H Creatinine 0.5 L Estim Creat Clear Calc 96.6 eGFR > 60 BUN/Creatinine Ratio 70 H Glucose 213 H D Calculated Osmolality 304 H Calcium 8.3 Corrected Calcium 9.2 Phosphorus 3.1 Magnesium 1.8 Total Bilirubin 0.2 L AST 13 ALT 10 Alkaline Phosphatase 99 D Total Protein 4.9 L Albumin 2.9 L Globulin 2.0 L Albumin/Globulin Ratio 1.5 Impressions Impression: Failure to thrive Abnormal CT scan of the abdomen pelvis showing thickening of the rectal wall most likely under distention Continue conservative management ABG Interpretation ABG results: 04/11/25 04/14/25 04/18/25 21:53 23:37 08:00 ABG pH 7.29 L 7.47 H ABG pCO2 53 H 30 L ABG pO2 90 61 L ABG HCO3 25 21 ABG O2 Saturation 97 94 ABG Base Excess -2 -2 VBG pH 7.36 VBG pCO2 31 L VBG pO2 108 H VBG Base Excess -7 L Assessment & Plan A&P Narrative Patient is a 69-year-old female with past medical history of CAD s/p CABG with history of previous multiple PCI, moderate aortic stenosis, CVA/stroke, seizure disorder with Keppra, essential hypertension, hyperlipidemia, baseline dementia, slurred speech, history of left transmetatarsal amputation with questionable PAD, history of fall with displaced intra-articular fracture of the left hip status post open reduction internal fixation in June 2024 was brought in to the emergency department of worsening altered mental status. Admitted to ICU for acute metabolic encephalopathy in setting of hypertonic hyponatremia and acute hypothermia. Cardiology consulted due to concern for cardiogenic shock given history of CAD and moderate aortic stenosis. #Distributive shock, likely septic or distributive, unlikely cardiogenic, resolved #Acute hypothermia, improving #Bradycardia secondary to first-degree heart block #History of aortic stenosis, moderate #History of hypertension #History CVA #History of CAD status post CABG with history of previous multiple PCI # HFpEF (EF 60 to 65%) with stage I diastolic dysfunction Home meds include lisinopril 10 mg daily, aspirin 81 mg daily, Plavix 75 mg daily. On physical exam, auscultated 4/5 ejection systolic murmur radiating to carotids. TSH were normal, A1c was 8.1% in lipid profile showed total cholesterol of 123, HDL of 48 and LDL of 53. Chest x-ray with questionable left-sided pneumonia secondary to aspiration. CT chest abdominal with altered showed small bilateral pleural effusions along with significant thickening of gastric mucosa and some constipation. TTE 06/23/2024 showed normal LV size and function. Mild LVH. Stage I diastolic dysfunction. Estimated EF 60-65%. Normal RV size and function. Moderate AV stenosis, mean gradient 21mmHg, vmax 3.1 m/s. Mild thicken MVL. Midl MR, AI. Trace TR. Bradycardia likely secondary to severe hypothermia. Heart rate now improved to 70s to 80s with conservative treatment of hypothermia. TTE 04/12/25 showed normal left ventricular size and function. Mild LVH. Stage I diastolic dysfunction. Estimated EF 60-65%. Normal RV size and function. RVSP 40 mmHg with RAP 3. Moderate AV stenosis, mean gradient 31 mmHg, vmax 3.7 to 3.8m/s. MELE 1 sq cm. Mild thicken MV leaflets. Mild MR, AI and TR. Compared to prior study of 06/24/24- increased velocities. EKG 04/14 shows sinus bradycardia with first-degree AV block, RI 234, QTc 439. Plan: - Unlikely cardiogenic shock as patient only has moderate aortic stenosis with adequate flow. Likely distributive shock secondary to severe hypothermia or possible sepsis with underlying left lower lobe pneumonia. Patient was bradycardic along with hypotensive on admission which improved with rewarming with a Laverne hugger. - Even if the patient has severe aortic stenosis it is unlikely the patient will be a candidate for TAVR given his multiple comorbidities along with her severe protein calorie malnutrition and will not have good outcome as she is unable to do any kind of rehab. Can consider TAVR for her eventually if her overall clinical status improves over the next few months - Heart rate improving with Laverne hugger. As above, EKG shows first-degree AV block however patient remains asymptomatic with no long pauses noted and is therefore not a candidate for pacemaker placement at this time. - Recommend starting losartan 25 mg daily as patient is now on NG tube if BP permits as part of GDMT. - Avoid beta blockers as patient is already bradycardic ? Stable off Levophed and dopamine. Monitor BP. 04/21/2025 Diuresed well over the last 24 hours with 20 mg IV Lasix 2600 mL urine output but intake was not accurately measured. Recommend strict input output Patient's BUN actually improved from 37 to 33 with the diuresis and creatinine is stable at 0.5 Potassium improved from 5.3-4.8. Magnesium slightly low at 1.8 Recommend to replace magnesium sulfate. Continue as needed Lasix 20 mg IV or oral or NG tube based on her weights and if patient continues to have leg swelling. Patient is still on NG tube feeds and primary team is discussing with the patient regarding PEG tube placement. GI team also following. Otherwise patient is hemodynamically stable and as noted previously patient needs to follow-up with cardiology and if her clinical status improves then we can plan for further workup for the patient otherwise at this point of time we will continue with medical treatment. Blood pressure is still soft and hold off on other medications at the present point of time and recommend to start with losartan 25 mg once daily when blood pressure is elevated. #Hypernatremia #Acute hypokalemia, resolved #Hypomagnesemia # Hypophosphatemia ##Hypocalcemia, resolved Presented with potassium of 2.4 and magnesium 1.1. Overnight given total potassium chloride 40 mEq, magnesium 2 g, calcium gluconate x1. 04/12/2025: Potassium improved to 4.7 at midnight. Calcium improved to 8.7, phosphorus 2.6, magnesium 2.3. ?Keep potassium above 4 and magnesium above 2 - Feeding via NG tube, adjust sodium content if any. #Acute on chronic normocytic anemia #Protein calorie malnutrition Patient presented with altered mental status and acute metabolic encephalopathy, unclear etiology. Appears to have poor oral intake as the patient was also noted to have severely low albumin at 1.5 as well as total protein at 2.5. Hemoglobin 7.6. In setting of acute gastritis and severe malnutrition. BMI 19.6. ? NG tube feeds as above - Workup per primary team #Ghj-elwvkef-onxluiarb type 2 diabetes #Hx of LT foot metatrasal amputation and RT foot 2nd digit amputation A1c 8.1. Home meds include metformin 1000 mg twice daily. ?SSI per primary team #Acute encephalopathy in setting of #Hypotonic hyponatremia, severe #Left base PNA, possibly aspiration #Right upper lobe pulmonary nodules #Bilateral pleural effusions, small #Pancytopenia #Proctitis, likely acute #Seizure disorder #Hyperlipidemia #Constipation Vs. bowel ileus #Tinea Capitis #Nasal lesion, possibly basal cell carcinoma #Axillary lymphadenopathy #Baseline dementia #History of questionable PAD with transmetatarsal amputation and right toe amputation #COPD Time Spent With Patient Time: Total time spent is greater than 50% in coordination of care (as documented) at patient's floor/unit and/or counseling patient:
--- NOTE | 2025-04-22 16:03 | PD.HHPROG ---
Documentation for date of: 04/22/25 Subjective - Hospitalist Subjective Interval history: Patient seen and examined at bedside this morning. Appears comfortable, remains sleepy. Wakes up on calling, opens her eyes but does not track, interact or follow command. Discussed with gastroenterology, rectal wall thickening seen on imaging most likely secondary to distention, appreciate recommendations. Swallow evaluation was tried again today with speech therapy, patient unable to swallow safely, we will continue with NG tube feeding. We will plan for discussion with the family again tomorrow if patient continues to fail swallow evaluation for possible PEG tube placement. Vital signs are stable, saturating well on room air. Patient rashes continue to improve. Review of Systems Review of Systems ROS Unobtainable: unobtainable due to mental status Exam Vital Signs Temp Pulse Resp BP Pulse Ox O2 Del Method O2 Flow Rate 96.6 F L 59 L 20 137/64 H 100 Nasal Cannula 4 04/22/25 12:00 04/22/25 12:31 04/22/25 12:31 04/22/25 12:00 04/22/25 12:31 04/22/25 12:00 04/22/25 12:31 FiO2 62 04/16/25 07:43 Narrative GENERAL: Sleepy, wakes up when family is around, unable to interact appropriately HEENT: Mucous membranes moist. NG tube in place receiving tube feeds NECK: Supple, no carotid bruits. CARDIOVASCULAR: RRR. Normal S1/S2, systolic murmur noted with radiation to carotids RESPIRATORY: CTAB. No wheezing, rhonchi, crackles. GASTROINTESTINAL: Abdomen soft, nontender, no organomegaly, bowel sound present MUSCULOSKELETAL:? Left foot tarsal amputation, right foot second digit amputation NEUROLOGICAL: Unable to evaluate fully, patient unable to participate in exam, moving all her limbs spontaneously SKIN: Multiple rashes around whole body, dry skin, improving significantly as per family Objective - Hospitalist Labs Diagram: 04/22/25 05:30 04/22/25 05:30 Labs: Laboratory Results - last 24 hr 04/22/25 05:30 WBC 8.4 RBC 3.42 L Hgb 9.3 L Hct 27.6 L MCV 81 MCH 27.2 MCHC 33.7 RDW Std Deviation 56.1 H Plt Count 264 D Neut % (Auto) 60 Lymph % (Auto) 15 [place] % (Auto) 8 Eos % (Auto) 16 H Baso % (Auto) 1 Neut # (Auto) 5.0 Lymph # (Auto) 1.2 [place] # (Auto) 0.7 Eos # (Auto) 1.3 H Baso # (Auto) 0.1 Immature Gran # (Auto) 0.06 H Absolute Nucleated RBC 0.00 Immature Gran % 1 H Nucleated RBC % 0 Sodium 146 H Potassium 4.8 Chloride 113 H Carbon Dioxide 24.6 Anion Gap 8 BUN 35 H Creatinine 0.5 L Estim Creat Clear Calc 96.6 eGFR > 60 BUN/Creatinine Ratio 70 H Glucose 213 H D Calculated Osmolality 304 H Calcium 8.3 Corrected Calcium 9.2 Phosphorus 3.1 Magnesium 1.8 Total Bilirubin 0.2 L AST 13 ALT 10 Alkaline Phosphatase 99 D Total Protein 4.9 L Albumin 2.9 L Globulin 2.0 L Albumin/Globulin Ratio 1.5 ABG Interpretation ABG results: 04/11/25 04/14/25 04/18/25 21:53 23:37 08:00 ABG pH 7.29 L 7.47 H ABG pCO2 53 H 30 L ABG pO2 90 61 L ABG HCO3 25 21 ABG O2 Saturation 97 94 ABG Base Excess -2 -2 VBG pH 7.36 VBG pCO2 31 L VBG pO2 108 H VBG Base Excess -7 L Assessment & Plan Plan: Patient is a 69 years old female with past medical history of hypertension, type 2 diabetes mellitus, CAD status post CABG, history of CVA, seizure disorder, age-related dementia, amputation of left foot metatarsal, right foot second digit, COPD who presented to the ED with complaint of altered mental status. She was initially admitted to ICU for distributive shock from possible pneumonia and was later on transferred to medical floor after improvement. #Acute infectious encephalopathy #History of age-related dementia #Dysphagia Patient has been failing her swallow evaluation, has not been alert enough to undergo speech evaluation Currently on NG tube feeding started on 04/17/2025 Registered dietitian, speech therapy following closely Patient failed swallow evaluation today as well, plan to be discussed about PEG tube feeding with family tomorrow #Staphylococcus aureus bacteremia #Left base pneumonia, likely aspiration #Hypothermia, resolved #Distributive shock, resolved Patient was previously in ICU, was on vasopressors, was eventually weaned off Patient was on broad-spectrum IV antibiotics including vancomycin, cefepime and metronidazole Blood culture grew Staphylococcus aureus on 1 sample, sensitive to Rocephin, we will de-escalate and complete 14 days course Continues to receive chest physiotherapy Currently on room air, saturating well. #Right upper lobe pulmonary nodules #Multiple subcentimeter axillary lymph nodes #Rectal wall thickening As noticed on chest/abdomen/pelvis CT done on 04/11/2025 Patient's son also stated that she had GI tomorrow previously but was unable to provide any details Patient may need further outpatient oncology workup including follow-up CT chest Discussed with gastroenterology regarding rectal wall thickening found on imaging, likely secondary to distention, appreciate recommendations #Severe thrombocytopenia #Anemia of chronic disease Hemoglobin and platelet counts are improving compared to yesterday We will continue to monitor closely, no signs of active bleeding #Bradycardia #Moderate aortic stenosis #Hypertension Patient was bradycardic on admission, currently improved and stable Echocardiography showed normal left ventricular size and function, ejection fraction of 60 to 65%, RSVP 40 mmHg, moderate aortic stenosis with gradient of 31 mmHg, V-max 3.7 to 3.8 m/s Cardiology following closely, patient currently not a good candidate for TAVR or pacemaker for first-degree AV block, appreciate recommendations Patient had received a dose of Lasix yesterday with improved urinary output, we will hold off on Lasix dosing tomorrow,, if concern for volume overload, we will continue with Lasix tomorrow. #Multiple electrolyte imbalances Electrolytes are stable today except for mild hyponatremia with sodium of 146 and mildly elevated chloride at 113 We will monitor electrolytes closely and replete as needed #Type 2 diabetes mellitus Continues to be on insulin sliding scale #History of seizure\ Continues to be on Keppra 1 g twice daily #Diffuse excoriations #Xeroderma versus atopic dermatitis versus eczema Improving with hydrocortisone cream, we will continue with same regimen Wound care following closely, appreciate recommendations CODE STATUS: Full code DVT prophylaxis: Lovenox SC Diet: NG tube feeding Disposition: Telemetry for further management of dysphagia needing tube feedings Jake Angeles MD Time Spent with Patient Time: Total time spent is greater than 50% in coordination of care (as documented) at patient's floor/unit and/or counseling patient: Time with patient: Greater than 35 minutes Reason for Continued Stay Reason for continued stay: further monitoring Quality Measures Quality Measures VTE prophylaxis Advance care planning discussed with:: patient
[2025-04-23] VITALS (11 sets, daily range): BP systolic 124–158; BP diastolic 65–79; PULSE 44–77; RESP 12–22; TEMP 35.8–36.2; O2SAT 97–100; BMI 23.4
[2025-04-23] MEDS: SODIUM CL RT SOL 3% 4 ML NEBU (NON-FORMULARY) INH ×4 (00:07→18:52)
[2025-04-23 05:52] LABS: Basophils # (Auto) 0.0 Thou/mm3 (0.0-0.2); Basophils % (Auto) 1 % (0-2.5); Eosinophils # (Auto) 2.0 Thou/mm3 (0.0-0.5); Eosinophils % (Auto) 26 % (0-10); Hematocrit 28.4 % (36.0-46.0); Hemoglobin 9.1 g/dL (12.0-16.0); Immature Granulocytes Auto 0.04 Thou/mm3 (0.00-0.00); Lymphocytes # (Auto) 1.0 Thou/mm3 (1.0-4.8); Lymphocytes % (Auto) 13 % (10-50); Mean Corpuscular HGB Conc 32.0 g/dl (31.0-37.0); Mean Corpuscular Hemoglobin 26.5 pg (25.0-35.0); Mean Corpuscular Volume 83 fL (80-100); Monocytes # (Auto) 0.5 Thou/mm3 (0.0-0.8); Monocytes % (Auto) 6 % (0-12); Neutrophils # (Auto) 4.2 Thou/mm3 (1.8-7.7); Neutrophils % (Auto) 54 % (37-80); Nucleated Red Blood Cell # 0.00 Thou/mm3 (0.00-0.00); Nucleated Red Blood Cell % 0 /100 WBC (0); Platelet Count 318 Thou/mm3 (140-440); RDW Standard Deviation 56.2 fL (36.4-46.3); Red Blood Count 3.44 Miln/mm3 (4.00-5.20); White Blood Count 7.8 Thou/mm3 (3.6-11.0)
[2025-04-23] MEDS: INSULIN LISPRO (AdmeLOG) 1 UNIT/0.01 ML UNIT SC ×3 (06:08→18:01)
[2025-04-23 06:15] LABS: Alanine Aminotransferase 12 U/L (10-49); Albumin, Serum 2.8 gm/dL (3.4-4.8); Albumin/Globulin Ratio 1.3 (1.2-2.2); Alkaline Phosphatase 106 U/L (46-116); Anion Gap 9 (7-16); Aspartate Amino Transferase 20 U/L (0-34); BUN/Creatinine Ratio 60 Ratio (12-20); Bilirubin,Total 0.2 mg/dL (0.3-1.2); Blood Urea Nitrogen 30 mg/dL (9-23); Calcium 8.3 mg/dL (8.3-10.6); Calcium (Corrected) 9.3 mg/dL (8.5-10.1); Carbon Dioxide 26.3 mMol/L (20.0-31.0); Chloride 110 mMol/L (98-107); Creatinine (Component) 0.5 mg/dL (0.6-1.3); Estimated Creatinine Clearance 96.6 mL/min (>60); Globulin 2.1 gm/dL (2.3-3.5); Glucose 211 mg/dL (74-106); Magnesium 1.8 mg/dL (1.6-2.6); Osmolality,Calculated 300 (275-295); Phosphorous 3.2 mg/dL (2.4-5.1); Potassium 4.9 mMol/L (3.4-5.1); Sodium 145 mMol/L (136-145); Total Protein 4.9 gm/dL (5.7-8.2); eGFR > 60 See Note
[2025-04-23 06:41] LABS: Path Review Blood Smear Sent to Pathologist
--- NOTE | 2025-04-23 09:25 | ESPR_ITS ---
Documentation for date of: 04/23/25 Subjective Subjective Interval history: Patient seen and assessed at bedside. Able to speak now answering simple questions appropriately. Oriented to self however not time and place, appears to be at patient's baseline (?). Reporting mild left-sided chest pain, tender on palpation. Also endorses mild shortness of breath, likely secondary to NG tube in right nostril. Denies any palpitations. Bilateral hands and feet continue to be moderately edematous, recommend IV or p.o. Lasix 20 as needed. Platelets continue to be improving. Blood pressure 148/68 this morning, systolics 130s to 140s. Consider starting on losartan 25 mg. Heart rate 56, continues to be in sinus pericardia with prolonged CA on telemetry. Potassium 4.9, magnesium 1.8, replete with IV magnesium sulfate. BUN 30, creatinine 0.5. Potential PEG tube placement per primary team. Exam Vital Signs Temp Pulse Resp BP Pulse Ox O2 Del Method O2 Flow Rate 97 F 56 L 15 140/68 H 99 Room Air 2 04/23/25 08:00 04/23/25 08:00 04/23/25 08:00 04/23/25 08:00 04/23/25 08:00 04/23/25 08:00 04/23/25 06:43 FiO2 62 04/16/25 07:43 Narrative Exam General: Awake and in no acute distress. Able to answer simple questions appropriately. Cachectic. HEENT: Normocephalic, atraumatic, mucous membranes dry. Missing upper and bottom teeth. NG tube in place. Heart: Regular rate and rhythm, normal S1 and S2, 4/5 systolic murmur radiating to carotids. Lungs: Mild coarse breath sounds in all lobes, much improved. Abdomen: Soft, nondistended, nontender, positive bowel sounds. No guarding or rebound tenderness. Neurologic: Alert and oriented x1. Strength 5/5 in bilateral upper extremities but R>L. Extremities: Swelling of bilateral hands and feet. Left foot transmetatarsal amputation. Right foot second digit amputation. Skin: No rash or ecchymoses. Tinea capitis at frontal scalp. Petechial lesions bilateral lower extremities. Very dry skin. Objective Labs 04/24/25 05:37 04/24/25 05:37 Labs: Laboratory Results - last 24 hr 04/23/25 04:38 WBC 7.8 RBC 3.44 L Hgb 9.1 L Hct 28.4 L MCV 83 MCH 26.5 MCHC 32.0 RDW Std Deviation 56.2 H Plt Count 318 D Neut % (Auto) 54 Lymph % (Auto) 13 [place] % (Auto) 6 Eos % (Auto) 26 H Baso % (Auto) 1 Neut # (Auto) 4.2 Lymph # (Auto) 1.0 [place] # (Auto) 0.5 Eos # (Auto) 2.0 H Baso # (Auto) 0.0 Immature Gran # (Auto) 0.04 H Absolute Nucleated RBC 0.00 Immature Gran % 1 H Nucleated RBC % 0 Smear Path Review Sent to Pathologist Sodium 145 Potassium 4.9 Chloride 110 H Carbon Dioxide 26.3 Anion Gap 9 BUN 30 H Creatinine 0.5 L Estim Creat Clear Calc 96.6 eGFR > 60 BUN/Creatinine Ratio 60 H Glucose 211 H Calculated Osmolality 300 H Calcium 8.3 Corrected Calcium 9.3 Phosphorus 3.2 Magnesium 1.8 Total Bilirubin 0.2 L AST 20 ALT 12 Alkaline Phosphatase 106 Total Protein 4.9 L Albumin 2.8 L Globulin 2.1 L Albumin/Globulin Ratio 1.3 ABG Interpretation ABG results: 04/11/25 04/14/25 04/18/25 21:53 23:37 08:00 ABG pH 7.29 L 7.47 H ABG pCO2 53 H 30 L ABG pO2 90 61 L ABG HCO3 25 21 ABG O2 Saturation 97 94 ABG Base Excess -2 -2 VBG pH 7.36 VBG pCO2 31 L VBG pO2 108 H VBG Base Excess -7 L Quality Measures Quality Measures VTE prophylaxis Advance care planning discussed with:: patient Assessment & Plan Assessment Current Active Medications: Generic Name Dose Route Start Last Admin Trade Name Freq PRN Reason Stop Dose Admin Dextrose 50 ml 04/12/25 00:08 04/12/25 12:20 Dextrose 50%-Water Inj 50 Ml Syringe IV 05/12/25 00:07 50 ml Q15MIN PRN Administration BG <50 OR BG <70 & pt unresponsive Enoxaparin Sodium 40 mg 04/12/25 21:00 04/22/25 08:43 Enoxaparin Sod Inj 40 Mg/0.4 Ml Syringe SC 04/26/25 20:59 40 mg QDAY HARPER Administration Folic Acid 1 mg 04/18/25 09:00 04/22/25 08:43 Folic Acid 1 Mg Tablet NG 05/18/25 08:59 1 mg QDAY HARPER Administration Glucagon 1 mg 04/12/25 00:08 Glucagon Inj 1 Mg Vial IM Q15MIN PRN BG <70, and no IV access Hydrocortisone 0 gm 04/19/25 11:30 04/22/25 21:28 Hydrocortisone Cr 1% 30 Gm Tube TOP 05/19/25 11:29 1 appln BID HARPER Administration Ceftriaxone Sodium 2 gm/ 50 mls @ 100 mls/hr 04/21/25 13:28 04/22/25 08:43 Sodium Chloride IV 04/28/25 13:27 100 mls/hr QDAY HARPER Administration Insulin Degludec 14 unit 04/23/25 09:00 Insulin Degludec 5 Unit/0.05 Ml (Per 5 Units) SC 05/23/25 08:59 QDAY HARPER Insulin Human Lispro 0 unit 04/23/25 07:40 Insulin Lispro (Admelog) 1 Unit/0.01 Ml Unit SC 05/16/25 17:59 Q6HR HARPER Protocol Levetiracetam 1,000 mg 04/12/25 21:00 04/22/25 21:25 Levetiracetam Inj 100 Mg/Ml Vial 5ml IVP 05/12/25 20:59 1,000 mg Q12HR HARPER Administration Magnesium Hydroxide 30 ml 04/22/25 07:45 Milk Of Magnesia Susp 30 Ml Udc PO 05/22/25 07:44 QDAY PRN CONSTIPATION Protocol Multi-Ingredient Ointment 0 oz 04/12/25 12:30 04/22/25 08:44 Min Oil/Pet,White (Eucerin) Cr 16 Oz Btl TOP 05/12/25 12:29 1 appln DAILY HARPER Administration Multivitamins/Minerals 15 ml 04/20/25 09:00 04/22/25 08:43 Multivitamin 15 Ml Udc NG 05/20/25 08:59 15 ml QDAY HARPER Administration Ondansetron HCl 4 mg 04/11/25 22:23 Ondansetron Inj 2 Mg/Ml Inj 2 Ml IVP 05/11/25 22:22 Q6H PRN NAUSEA OR VOMITING Protocol Pantoprazole Sodium 40 mg 04/12/25 10:30 04/22/25 08:43 Pantoprazole Inj 40 Mg Vial IVP 05/12/25 10:29 40 mg QDAY HAREPR Administration Sodium Chloride 4 ml 04/15/25 13:00 04/23/25 06:43 Sodium Cl Rt Mere 3% 4 Ml Nebu (Non-Formulary) INH 05/15/25 12:59 4 ml Q6HRRT HARPER Administration Thiamine HCl 100 mg 04/18/25 09:00 04/22/25 08:43 Thiamine 100 Mg Tablet NG 05/18/25 08:59 100 mg QDAY HARPER Administration Plan Patient is a 69-year-old female with past medical history of CAD s/p CABG with history of previous multiple PCI, moderate aortic stenosis, CVA/stroke, seizure disorder with Keppra, essential hypertension, hyperlipidemia, baseline dementia, slurred speech, history of left transmetatarsal amputation with questionable PAD, history of fall with displaced intra-articular fracture of the left hip status post open reduction internal fixation in June 2024 was brought in to the emergency department of worsening altered mental status. Admitted to ICU for acute metabolic encephalopathy in setting of hypertonic hyponatremia and acute hypothermia. Cardiology consulted due to concern for cardiogenic shock given history of CAD and moderate aortic stenosis. #Distributive shock, likely septic or distributive, unlikely cardiogenic, resolved #Acute hypothermia, improving #Bradycardia secondary to first-degree heart block #History of aortic stenosis, moderate #History of hypertension #History CVA #History of CAD status post CABG with history of previous multiple PCI # HFpEF (EF 60 to 65%) with stage I diastolic dysfunction Home meds include lisinopril 10 mg daily, aspirin 81 mg daily, Plavix 75 mg daily. On physical exam, auscultated 4/5 ejection systolic murmur radiating to carotids. TSH were normal, A1c was 8.1% in lipid profile showed total cholesterol of 123, HDL of 48 and LDL of 53. Chest x-ray with questionable left-sided pneumonia secondary to aspiration. CT chest abdominal with altered showed small bilateral pleural effusions along with significant thickening of gastric mucosa and some constipation. TTE 06/23/2024 showed normal LV size and function. Mild LVH. Stage I diastolic dysfunction. Estimated EF 60-65%. Normal RV size and function. Moderate AV stenosis, mean gradient 21mmHg, vmax 3.1 m/s. Mild thicken MVL. Midl MR, AI. Trace TR. Bradycardia likely secondary to severe hypothermia. Heart rate now improved to 70s to 80s with conservative treatment of hypothermia. TTE 04/12/25 showed normal left ventricular size and function. Mild LVH. Stage I diastolic dysfunction. Estimated EF 60-65%. Normal RV size and function. RVSP 40 mmHg with RAP 3. Moderate AV stenosis, mean gradient 31 mmHg, vmax 3.7 to 3.8m/s. MELE 1 sq cm. Mild thicken MV leaflets. Mild MR, AI and TR. Compared to prior study of 06/24/24- increased velocities. EKG 04/14 shows sinus bradycardia with first-degree AV block, CA 234, QTc 439. Plan: - Unlikely cardiogenic shock as patient only has moderate aortic stenosis with adequate flow. Likely distributive shock secondary to severe hypothermia or possible sepsis with underlying left lower lobe pneumonia. Patient was bradycardic along with hypotensive on admission which improved with rewarming with a Laverne hugger. - Even if the patient has severe aortic stenosis it is unlikely the patient will be a candidate for TAVR given his multiple comorbidities along with her severe protein calorie malnutrition and will not have good outcome as she is unable to do any kind of rehab. Can consider TAVR for her eventually if her overall clinical status improves over the next few months - Heart rate improving with Laverne hugger. As above, EKG shows first-degree AV block however patient remains asymptomatic with no long pauses noted and is therefore not a candidate for pacemaker placement at this time. - Recommend starting losartan 25 mg daily as patient is now on NG tube if BP permits as part of GDMT. - Avoid beta blockers as patient is already bradycardic ? Stable off Levophed and dopamine. Monitor BP. #Hypernatremia #Acute hypokalemia, resolved #Hypomagnesemia # Hypophosphatemia ##Hypocalcemia, resolved Presented with potassium of 2.4 and magnesium 1.1. Overnight given total potassium chloride 40 mEq, magnesium 2 g, calcium gluconate x1. 04/12/2025: Potassium improved to 4.7 at midnight. Calcium improved to 8.7, phosphorus 2.6, magnesium 2.3. ?Keep potassium above 4 and magnesium above 2 - Feeding via NG tube, adjust sodium content if any. #Acute on chronic normocytic anemia #Protein calorie malnutrition #Upper and lower extremity swelling Patient presented with altered mental status and acute metabolic encephalopathy, unclear etiology. Appears to have poor oral intake as the patient was also noted to have severely low albumin at 1.5 as well as total protein at 2.5. Hemoglobin 7.6. In setting of acute gastritis and severe malnutrition. BMI 19.6. 04/23/25: Swelling of hands and feet likely secondary to increased intake. - IV Lasix 20 or oral recommended as needed to reduce swelling - Strict I's and O's ? NG tube feeds as above. - Potential PEG tube placement per primary team - GI following - Workup per primary team #[id number] type 2 diabetes #Hx of LT foot metatrasal amputation and RT foot 2nd digit amputation A1c 8.1. Home meds include metformin 1000 mg twice daily. ?SSI per primary team #Acute encephalopathy in setting of #Hypotonic hyponatremia, severe #Left base PNA, possibly aspiration #Right upper lobe pulmonary nodules #Bilateral pleural effusions, small #Pancytopenia #Proctitis, likely acute #Seizure disorder #Hyperlipidemia #Constipation Vs. bowel ileus #Tinea Capitis #Nasal lesion, possibly basal cell carcinoma #Axillary lymphadenopathy #Baseline dementia #History of questionable PAD with transmetatarsal amputation and right toe amputation #COPD Thank you for your consultation, please do not hesitate to reach out if you have any question or concern Patient plan of care was discussed with the attending physician, Dr. Castellanos. Kenisha Marsh, PGY-1 Attending Provider Attestation/Addendum I have personally seen and examined the patient separately on the above date of service and discussed the plan of care with the resident. I reviewed the resident Dr. Kenisha Marsh consultation progress note and agree with the resident findings and plan in the note above and have also edited the documentation to reflect my findings and plan. Jose Castellanos M.D. Interventional Cardiology
[2025-04-23] MEDS: cefTRIAXone 2 GM in SODIUM CHLORIDE 0.9% (Popper) 50 ML IV (09:45)
[2025-04-23] MEDS: ENOXAPARIN SOD INJ 40 MG/0.4 ML SYRINGE SC (09:46)
[2025-04-23] MEDS: THIAMINE 100 MG TABLET NG (09:47)
[2025-04-23] MEDS: MIN OIL/PET,WHITE (Eucerin) CR 16 OZ BTL TOP (09:47)
[2025-04-23] MEDS: MULTIVITAMIN 15 ML UDC NG (09:47)
[2025-04-23] MEDS: FOLIC ACID 1 MG TABLET NG (09:47)
[2025-04-23] MEDS: levETIRAcetam INJ 100 MG/ML VIAL 5ML 1000 MG IVP ×2 (09:47→21:29)
[2025-04-23] MEDS: Hydrocortisone Cr 1% 30 GM TUBE TOP ×2 (09:48→21:30)
[2025-04-23] MEDS: INSULIN DEGLUDEC 5 UNIT/0.05 ML (PER 5 UNITS) 14 UNIT SC (10:04)
--- NOTE | 2025-04-23 10:25 | PC.SS ---
rounding note: Poss peg tube. Son remains alt medical decision maker. Tentative d/c plan remains HH.
--- NOTE | 2025-04-23 10:35 | EKG_ITS ---
[facility] [place] [facility] Test Date: 2025-04-23 Pat Name: JENARO ANTONY [facility] Length Control Tester: SAVANAH : 1955 Requested By: Linda Marsh Order Number: [id number] Reading MD: Linda Marsh Measurements Intervals [place] Rate: 50 P: 12 MA: 194 QRS: 38 QRSD: 97 T: 72 QT: 452 QTc: 414 Interpretive Statements SINUS BRADYCARDIA POSSIBLE RIGHT VENTRICULAR CONDUCTION DELAY ANTEROSEPTAL MYOCARDIAL INFARCTION , OF INDETERMINATE AGE Compared to ECG 04/14/2025 14:42:32 First degree AV block no longer present Myocardial infarct finding still present /[id number]/[id number]
[2025-04-23] MEDS: FUROSEMIDE INJ 10 MG/ML VIAL 2 ML 20 MG IVP (11:39)
[2025-04-23] MEDS: SENNA/DOCUSATE SOD 1 TAB TABLET PO (11:44)
--- NOTE | 2025-04-23 13:08 | PD.RESPRO ---
Documentation for date of: 04/23/25 Subjective Subjective Interval history: No acute events. Patient seen and examined at bedside. Patient is vastly improved and able to speak in sentences and is oriented x 1 to name only. Endorses some chest pain that is reproducible on palpation at sternum, mild shortness of breath, and bilateral leg and foot pain. Vitals labs reviewed. Telemetry heart rate 50s. Hemoglobin stable 9.1, BUN stable elevated 30, glucose 211. Plan to contact family and coordinate another swallow evaluation as patient's mentation has improved. If patient does not pass swallow study, will speak to family regarding possible PEG tube placement. Continue ceftriaxone. Bowel regimen started senna/docusate given x 1. Started Lasix 20 mg x 1 today for lower extremity edema. Sliding scale increased to step 2. Exam Vital Signs Temp Pulse Resp BP Pulse Ox O2 Del Method O2 Flow Rate 96.5 F L 54 L 19 149/78 H 100 Room Air 2 04/23/25 12:00 04/23/25 12:00 04/23/25 12:00 04/23/25 12:00 04/23/25 12:00 04/23/25 12:00 04/23/25 06:43 FiO2 62 04/16/25 07:43 Narrative Exam GENERAL: no acute distress, speaking in short sentences, AOx1 to person only HEENT: mucous membranes dry, bilateral sclera anicteric, crusted lips, seborrheic dermatitis CARDIOVASCULAR: regular rate and rhythm, 4/6 systolic ejection murmur PULMONARY: CTAB ABDOMINAL: soft, non-tender, non-distended, no rebound/guarding, bowel sounds present EXTREMITIES: 2+ pitting edema bilateral thighs, L foot tarsal amputation, R foot 2nd digit amputation, LUE swelling SKIN: warm and dry, widespread small skin lesions scabbed over NEURO: CN II-XII grossly intact, able to follow instructions Objective Labs 04/23/25 04:38 04/23/25 04:38 Labs: Laboratory Results - last 24 hr 04/23/25 04:38 WBC 7.8 RBC 3.44 L Hgb 9.1 L Hct 28.4 L MCV 83 MCH 26.5 MCHC 32.0 RDW Std Deviation 56.2 H Plt Count 318 D Neut % (Auto) 54 Lymph % (Auto) 13 [place] % (Auto) 6 Eos % (Auto) 26 H Baso % (Auto) 1 Neut # (Auto) 4.2 Lymph # (Auto) 1.0 [place] # (Auto) 0.5 Eos # (Auto) 2.0 H Baso # (Auto) 0.0 Immature Gran # (Auto) 0.04 H Absolute Nucleated RBC 0.00 Immature Gran % 1 H Nucleated RBC % 0 Smear Path Review Sent to Pathologist Sodium 145 Potassium 4.9 Chloride 110 H Carbon Dioxide 26.3 Anion Gap 9 BUN 30 H Creatinine 0.5 L Estim Creat Clear Calc 96.6 eGFR > 60 BUN/Creatinine Ratio 60 H Glucose 211 H Calculated Osmolality 300 H Calcium 8.3 Corrected Calcium 9.3 Phosphorus 3.2 Magnesium 1.8 Total Bilirubin 0.2 L AST 20 ALT 12 Alkaline Phosphatase 106 Total Protein 4.9 L Albumin 2.8 L Globulin 2.1 L Albumin/Globulin Ratio 1.3 ABG Interpretation ABG results: 04/11/25 04/14/25 04/18/25 21:53 23:37 08:00 ABG pH 7.29 L 7.47 H ABG pCO2 53 H 30 L ABG pO2 90 61 L ABG HCO3 25 21 ABG O2 Saturation 97 94 ABG Base Excess -2 -2 VBG pH 7.36 VBG pCO2 31 L VBG pO2 108 H VBG Base Excess -7 L Quality Measures Quality Measures VTE prophylaxis Advance care planning discussed with:: child Assessment & Plan Assessment Current Active Medications: Generic Name Dose Route Start Last Admin Trade Name Freq PRN Reason Stop Dose Admin Dextrose 50 ml 04/12/25 00:08 04/12/25 12:20 Dextrose 50%-Water Inj 50 Ml Syringe IV 05/12/25 00:07 50 ml Q15MIN PRN Administration BG <50 OR BG <70 & pt unresponsive Enoxaparin Sodium 40 mg 04/12/25 21:00 04/23/25 09:46 Enoxaparin Sod Inj 40 Mg/0.4 Ml Syringe SC 04/26/25 20:59 40 mg QDAY HARPER Administration Folic Acid 1 mg 04/18/25 09:00 04/23/25 09:47 Folic Acid 1 Mg Tablet NG 05/18/25 08:59 1 mg QDAY HARPER Administration Glucagon 1 mg 04/12/25 00:08 Glucagon Inj 1 Mg Vial IM Q15MIN PRN BG <70, and no IV access Hydrocortisone 0 gm 04/19/25 11:30 04/23/25 09:48 Hydrocortisone Cr 1% 30 Gm Tube TOP 05/19/25 11:29 1 appln BID HARPER Administration Ceftriaxone Sodium 2 gm/ 50 mls @ 100 mls/hr 04/21/25 13:28 04/23/25 09:45 Sodium Chloride IV 04/28/25 13:27 100 mls/hr QDAY HARPER Administration Insulin Degludec 14 unit 04/23/25 09:00 04/23/25 10:04 Insulin Degludec 5 Unit/0.05 Ml (Per 5 Units) SC 05/23/25 08:59 14 unit QDAY HARPER Administration Insulin Human Lispro 0 unit 04/23/25 07:40 04/23/25 11:49 Insulin Lispro (Admelog) 1 Unit/0.01 Ml Unit SC 05/16/25 17:59 3 unit Q6HR HARPER Administration Protocol Levetiracetam 1,000 mg 04/12/25 21:00 04/23/25 09:47 Levetiracetam Inj 100 Mg/Ml Vial 5ml IVP 05/12/25 20:59 1,000 mg Q12HR HARPER Administration Magnesium Hydroxide 30 ml 04/22/25 07:45 Milk Of Magnesia Susp 30 Ml Udc PO 05/22/25 07:44 QDAY PRN CONSTIPATION Protocol Multi-Ingredient Ointment 0 oz 04/12/25 12:30 04/23/25 09:47 Min Oil/Pet,White (Eucerin) Cr 16 Oz Btl TOP 05/12/25 12:29 1 appln DAILY HARPER Administration Multivitamins/Minerals 15 ml 04/20/25 09:00 04/23/25 09:47 Multivitamin 15 Ml Udc NG 05/20/25 08:59 15 ml QDAY HARPER Administration Ondansetron HCl 4 mg 04/11/25 22:23 Ondansetron Inj 2 Mg/Ml Inj 2 Ml IVP 05/11/25 22:22 Q6H PRN NAUSEA OR VOMITING Protocol Pantoprazole Sodium 40 mg 04/12/25 10:30 04/23/25 09:47 Pantoprazole Inj 40 Mg Vial IVP 05/12/25 10:29 40 mg QDAY HARPER Administration Sodium Chloride 4 ml 04/15/25 13:00 04/23/25 06:43 Sodium Cl Rt Mere 3% 4 Ml Nebu (Non-Formulary) INH 05/15/25 12:59 4 ml Q6HRRT HARPER Administration Thiamine HCl 100 mg 04/18/25 09:00 04/23/25 09:47 Thiamine 100 Mg Tablet NG 05/18/25 08:59 100 mg QDAY HARPER Administration Plan Jill Holden 69F pmhx significant for primary hypertension, NIDDM2, CAD s/p CABG, hx of CVA, seizure disorder, age-related dementia, left diabetic foot metatarsal amputation, right foot second digit amputation and COPD, who presented to [facility] ED for acute encephalopathy, initially admitted to ICU for distributive shock from unknown source requiring pressor support and downgraded to floors on 04/13. #Staphylococcus aureus bacteremia #Acute infectious encephalopathy #Dysphagia #L Base PNA, likely aspiration with gram-negative versus anaerobic bacteria #Hypothermia, resolved #Distributive shock, resolved Patient presented obtunded with AMS, BP 79/48 MAP 51-52, HR 46, temp 84.7, WBC 2.2. Directly admitted to ICU requiring dopamine and Levophed pressors. Eventually weaned off and downgraded 04/13. Per ICU, mentation has improved since admission following broad spectrum abx and fluid resuscitation. UA unremarkable, lactic acid 0.9 on admission. Lipase 115. Ammonia 37. CRP neg, ESR 55. BCx 1/2 bottles growing GPC. Repeat BCx NGTD. sputum Cx NGTD. CT Head no acute processes. CTAP showed L base PNA, consider aspiration PNA, R upper lobe pulmonary nodules, multiple subcentimeter axillary lymph nodes, small b/l pleural effusions, significant thickening of gastric mucosa, abundant stool in rectosigmoid but no bowel obstruction, rectal wall thickening, consider proctitis, severe osteopenia Ddx: likely septic from L PNA, possible proctitis, gastritis, vs osteomyelitis as patient improved with fluids and abx. Less likely cardiogenic as patient condition has improved off pressors without continued ionotropic support. 04/15 repeat CXR no improvement in diffuse significant L lung PNA RUE swelling noted following PPN initiation, and RUE US negative for DVT. PPN (04/15-04/18) Vancomycin (04/11-04/21), metronidazole (04/11, 04/14 -04/21), cefepime (04/14-04/21) Plan: - Continue ceftriaxone (04/13-04/14, 04/21- - Chest physiotherapy on board - NG tube feeding (04/17- - Speech therapy reassesment with family at bedside planned for today, if fails, will discuss PEG tube placement #Severe thrombocytopenia, resolved #Anemia of chronic disease, stable On admission Hgb platelets 34, on 04/15/2025, count was 29. Peripheral smear shows normocytic normochronic anemia with normal serium iron and TIBC, consistent with anemia of chronic disease, severe thrombocytopenia, and mild neutropenia. Vitals remains stable at this time. 04/15 liver ultrasound shows normal gallbladder, normal blood, bile duct, mild hepatomegaly, partial visualization of right pleural fluid. B12 1400, folate wnl, HIV and hep neg, retic count 0.8, LDH 277. Likely 2/2 infection Plan: - Trend CBC #R upper lobe pulmonary nodules #Multiple subcentimeter axillary lymph nodes #Rectal wall thickening Findings CTAP as above. No history of cancer per chart review however son states has hx of abdominal mass. Plan: - Abx as above - Recommend to follow up outpatient for further management - Discussed with gastroenterology regarding rectal wall thickening found on imaging, likely secondary to distention, appreciate recommendations #Bradycardia 2/2 first degree AV block -improved #Moderate aortic stenosis #Essential HTN Patient presented with HR 46 on admission. Resolved following resolution of hypothermia, fluid resuscitation and abx. TSH wnl 2.73, 04/12 TTE: Normal left ventricular size and function. Mild LVH. Stage I diastolic dysfunction. Estimated EF 60-65%. Normal RV size and function. RVSP 40 mmHg with RAP 3. Moderate AV stenosis, mean gradient 31 mmHg, vmax 3.7 to 3.8m/s. MELE 1 sq cm. Mild thickened MV leaflets. Mild MR, AI and TR. Compared to prior study of 06/24/24- increased velocities. Likely 2/2 infectious etiology vs heart block. Plan: - Cardiology consulted, recs appreciated: likely 2/2 hypothermia, unlikely good candidate for TAVR for or pacemaker for first degree AV block due to patient being asymptomatic at this time - Telemetry for cardiac monitoring - Keep K>4 and Mg>2 at all times - Lasix 20 mg x1 #Electrolyte abnormalities #Hypernatremia #Hypokalemia, resolved #Hyperchloremia #Hypobicarbinemia, improving #Hypophosphatemia, resolved #Hypomagnesemia, resolved #Hypocalcemia, resolved On admission, Na 155, K 2.4, Cl 129, bicarb 18.5, glucose 65, Ca 7.0, phos 2.3, Mg 1.1. s/p D5W in ICU Plan: - Recheck and replete as necessary - Consider further D5W if Na continues to uptrend, at this time PPN should be sufficient #NIDDM2 #Hx of L diabetic foot tarsal amputation #Hx of osteomyelitis of R foot distal fourth metatarsal and proximal phalanx fourth digit #Hx of R big toe abscess s/p I&D of R big toe and 2nd toe amputation (12/04/24) Admission A1c 8.1. Per med rec takes metformin 1g BID. Possible osteomyelitis as source of distributive shock. Plan: - SSI step [address] #Hx of seizures Per history. On home Keppra 1g BID. Unknown when last seizure occurred. Plan: - Continue home Keppra 1g BID - Consider ordering EEG and/or consulting neurology if encephalopathy worsens #Diffuse excoriations, improved #Xeroderma vs atopic dermatitis vs ezcema In ICU initially some concern for scabies, and per son, patient received permethrin and developed skin lesions. Diffuse crusted rash over forehead. Patient continues to scratch however likely 2/2 allergy to permethrin. Per son, patient's skin has been very dry and leathery since returning from rehab. Despite moisturizers, skin remains very dry. Plan: - Hydrocortisone 1% topical - Wound care consulted, recs appreciated Hospital management: Lines: PIV Diet: NG Glucerna feeds Bowel: None GI prophylaxis: IV pantoprazole 40 mg QD DVT prophylaxis: SCDs Disposition: tele for IV abx CODE STATUS: FULL CODE This case was discussed with my attending physician, Dr. Bridgette Marsh, DO Internal Medicine PGY-1 Attending Provider Attestation/Addendum I have seen and examined the patient. I was physically present for the montez portions of the services provided including history, physical exam, diagnosis, treatment plans and orders. I agree with assessment and plan of care as documented by residents. Patient seen and examined at bedside this morning. No acute overnight events. Appears significantly more awake and alert compared to yesterday. She was able to answer some questions and was following commands. Oriented x 1. Noted to be mildly bradycardic, heart rate around 50s. Also endorsed mild chest pain, reproducible and tender to touch mildly. Lab results remain mostly stable. We will attempt another swallow evaluation with family around. If patient fails swallow evaluation despite improved mentation today, we will have another discussion with family regarding PEG tube placement. We will continue with IV Rocephin for Staphylococcus aureus bacteremia. Continues to receive NG tube feeding, tolerating well. Noted to have mild swelling of limbs, Lasix 20 mg x 1 ordered. Sodium level has improved to 145 from 146 yesterday. Patient has not have bowel movement for few days, we will start her on bowel regimen. Skin lesions continue to improve with hydrocortisone cream. Even though this note was carefully revised there may still be minor errors in hobbing machine operator due to voice recognition software. Jake Angeles MD
--- NOTE | 2025-04-23 17:27 | ESPR_ITS ---
Documentation for date of: 04/23/25 Subjective Subjective Interval history: Patient evaluated somewhat more Alert Agree with obtaining another swallowing evaluation And if she fails hopefully the family would agree for a PEG placement Exam Vital Signs Temp Pulse Resp BP Pulse Ox O2 Del Method O2 Flow Rate 96.4 F L 77 18 140/67 H 100 Room Air 2 04/23/25 16:00 04/23/25 16:00 04/23/25 16:00 04/23/25 16:00 04/23/25 16:00 04/23/25 16:00 04/23/25 06:43 FiO2 62 04/16/25 07:43 Objective Labs 04/23/25 04:38 04/23/25 04:38 Labs: Laboratory Results - last 24 hr 04/23/25 04:38 WBC 7.8 RBC 3.44 L Hgb 9.1 L Hct 28.4 L MCV 83 MCH 26.5 MCHC 32.0 RDW Std Deviation 56.2 H Plt Count 318 D Neut % (Auto) 54 Lymph % (Auto) 13 [place] % (Auto) 6 Eos % (Auto) 26 H Baso % (Auto) 1 Neut # (Auto) 4.2 Lymph # (Auto) 1.0 [place] # (Auto) 0.5 Eos # (Auto) 2.0 H Baso # (Auto) 0.0 Immature Gran # (Auto) 0.04 H Absolute Nucleated RBC 0.00 Immature Gran % 1 H Nucleated RBC % 0 Smear Path Review Sent to Pathologist Sodium 145 Potassium 4.9 Chloride 110 H Carbon Dioxide 26.3 Anion Gap 9 BUN 30 H Creatinine 0.5 L Estim Creat Clear Calc 96.6 eGFR > 60 BUN/Creatinine Ratio 60 H Glucose 211 H Calculated Osmolality 300 H Calcium 8.3 Corrected Calcium 9.3 Phosphorus 3.2 Magnesium 1.8 Total Bilirubin 0.2 L AST 20 ALT 12 Alkaline Phosphatase 106 Total Protein 4.9 L Albumin 2.8 L Globulin 2.1 L Albumin/Globulin Ratio 1.3 Impressions Impression: Dysphagia Dyspepsia Failure to thrive Plan Repeat swallowing evaluation ABG Interpretation ABG results: 04/11/25 04/14/25 04/18/25 21:53 23:37 08:00 ABG pH 7.29 L 7.47 H ABG pCO2 53 H 30 L ABG pO2 90 61 L ABG HCO3 25 21 ABG O2 Saturation 97 94 ABG Base Excess -2 -2 VBG pH 7.36 VBG pCO2 31 L VBG pO2 108 H VBG Base Excess -7 L Assessment & Plan A&P Narrative Patient is a 69-year-old female with past medical history of CAD s/p CABG with history of previous multiple PCI, moderate aortic stenosis, CVA/stroke, seizure disorder with Keppra, essential hypertension, hyperlipidemia, baseline dementia, slurred speech, history of left transmetatarsal amputation with questionable PAD, history of fall with displaced intra-articular fracture of the left hip status post open reduction internal fixation in June 2024 was brought in to the emergency department of worsening altered mental status. Admitted to ICU for acute metabolic encephalopathy in setting of hypertonic hyponatremia and acute hypothermia. Cardiology consulted due to concern for cardiogenic shock given history of CAD and moderate aortic stenosis. #Distributive shock, likely septic or distributive, unlikely cardiogenic, resolved #Acute hypothermia, improving #Bradycardia secondary to first-degree heart block #History of aortic stenosis, moderate #History of hypertension #History CVA #History of CAD status post CABG with history of previous multiple PCI # HFpEF (EF 60 to 65%) with stage I diastolic dysfunction Home meds include lisinopril 10 mg daily, aspirin 81 mg daily, Plavix 75 mg daily. On physical exam, auscultated 4/5 ejection systolic murmur radiating to carotids. TSH were normal, A1c was 8.1% in lipid profile showed total cholesterol of 123, HDL of 48 and LDL of 53. Chest x-ray with questionable left-sided pneumonia secondary to aspiration. CT chest abdominal with altered showed small bilateral pleural effusions along with significant thickening of gastric mucosa and some constipation. TTE 06/23/2024 showed normal LV size and function. Mild LVH. Stage I diastolic dysfunction. Estimated EF 60-65%. Normal RV size and function. Moderate AV stenosis, mean gradient 21mmHg, vmax 3.1 m/s. Mild thicken MVL. Midl MR, AI. Trace TR. Bradycardia likely secondary to severe hypothermia. Heart rate now improved to 70s to 80s with conservative treatment of hypothermia. TTE 04/12/25 showed normal left ventricular size and function. Mild LVH. Stage I diastolic dysfunction. Estimated EF 60-65%. Normal RV size and function. RVSP 40 mmHg with RAP 3. Moderate AV stenosis, mean gradient 31 mmHg, vmax 3.7 to 3.8m/s. MELE 1 sq cm. Mild thicken MV leaflets. Mild MR, AI and TR. Compared to prior study of 06/24/24- increased velocities. EKG 04/14 shows sinus bradycardia with first-degree AV block, [place] 234, QTc 439. Plan: - Unlikely cardiogenic shock as patient only has moderate aortic stenosis with adequate flow. Likely distributive shock secondary to severe hypothermia or possible sepsis with underlying left lower lobe pneumonia. Patient was bradycardic along with hypotensive on admission which improved with rewarming with a Laverne hugger. - Even if the patient has severe aortic stenosis it is unlikely the patient will be a candidate for TAVR given his multiple comorbidities along with her severe protein calorie malnutrition and will not have good outcome as she is unable to do any kind of rehab. Can consider TAVR for her eventually if her overall clinical status improves over the next few months - Heart rate improving with Laverne hugger. As above, EKG shows first-degree AV block however patient remains asymptomatic with no long pauses noted and is therefore not a candidate for pacemaker placement at this time. - Recommend starting losartan 25 mg daily as patient is now on NG tube if BP permits as part of GDMT. - Avoid beta blockers as patient is already bradycardic ? Stable off Levophed and dopamine. Monitor BP. 04/21/2025 Diuresed well over the last 24 hours with 20 mg IV Lasix 2600 mL urine output but intake was not accurately measured. Recommend strict input output Patient's BUN actually improved from 37 to 33 with the diuresis and creatinine is stable at 0.5 Potassium improved from 5.3-4.8. Magnesium slightly low at 1.8 Recommend to replace magnesium sulfate. Continue as needed Lasix 20 mg IV or oral or NG tube based on her weights and if patient continues to have leg swelling. Patient is still on NG tube feeds and primary team is discussing with the patient regarding PEG tube placement. GI team also following. Otherwise patient is hemodynamically stable and as noted previously patient needs to follow-up with cardiology and if her clinical status improves then we can plan for further workup for the patient otherwise at this point of time we will continue with medical treatment. Blood pressure is still soft and hold off on other medications at the present point of time and recommend to start with losartan 25 mg once daily when blood pressure is elevated. #Hypernatremia #Acute hypokalemia, resolved #Hypomagnesemia # Hypophosphatemia ##Hypocalcemia, resolved Presented with potassium of 2.4 and magnesium 1.1. Overnight given total potassium chloride 40 mEq, magnesium 2 g, calcium gluconate x1. 04/12/2025: Potassium improved to 4.7 at midnight. Calcium improved to 8.7, phosphorus 2.6, magnesium 2.3. ?Keep potassium above 4 and magnesium above 2 - Feeding via NG tube, adjust sodium content if any. #Acute on chronic normocytic anemia #Protein calorie malnutrition Patient presented with altered mental status and acute metabolic encephalopathy, unclear etiology. Appears to have poor oral intake as the patient was also noted to have severely low albumin at 1.5 as well as total protein at 2.5. Hemoglobin 7.6. In setting of acute gastritis and severe malnutrition. BMI 19.6. ? NG tube feeds as above - Workup per primary team #[id number] type 2 diabetes #Hx of LT foot metatrasal amputation and RT foot 2nd digit amputation A1c 8.1. Home meds include metformin 1000 mg twice daily. ?SSI per primary team #Acute encephalopathy in setting of #Hypotonic hyponatremia, severe #Left base PNA, possibly aspiration #Right upper lobe pulmonary nodules #Bilateral pleural effusions, small #Pancytopenia #Proctitis, likely acute #Seizure disorder #Hyperlipidemia #Constipation Vs. bowel ileus #Tinea Capitis #Nasal lesion, possibly basal cell carcinoma #Axillary lymphadenopathy #Baseline dementia #History of questionable PAD with transmetatarsal amputation and right toe amputation #COPD Time Spent With Patient Time: Total time spent is greater than 50% in coordination of care (as documented) at patient's floor/unit and/or counseling patient:
--- NOTE | 2025-04-23 23:01 | XR_ITS ---
EXAMINATION: AP chest single view TECHNIQUE: AP portable upright chest single view Date and time: April 23, 2025, 1122 hours, comparison April 20, 2025 INDICATIONS: Post orogastric tube placement FINDINGS: Orogastric tube tip distal stomach versus duodenal bulb Minor prominence left ventricle CABG No lobar pneumonia or pulmonary edema Prominent osteopenia IMPRESSION: Orogastric tube tip distal stomach versus duodenal bulb
[2025-04-24] VITALS (11 sets, daily range): BP systolic 127–149; BP diastolic 60–73; PULSE 40–58; RESP 14–96; TEMP 32.7–36.1; O2SAT 95–100; BMI 22.6
--- NOTE | 2025-04-24 01:09 | XR_ITS ---
EXAMINATION: AP chest single view TECHNIQUE: AP upright portable chest single view Date and time: April 24, 2025, 0129 hours, comparison April 23, 2025 INDICATIONS: Orogastric tube placement FINDINGS: Orogastric tube tip in the stomach satisfactory position Normal heart size No lobar pneumonia or pulmonary edema. IMPRESSION: Orogastric tube in the stomach satisfactory position
[2025-04-24] MEDS: SODIUM CL RT SOL 3% 4 ML NEBU (NON-FORMULARY) INH ×4 (01:19→19:08)
--- NOTE | 2025-04-24 04:39 | PRELIM_ITS ---
Radiograph of the chest (single view). April 24, 2025 0126 hours Clinical history: NGT Placement Comparison: No prior study is available for comparison. Findings: The evaluation is limited due to oblique positioning. A nasogastric catheter is in satisfactory position with its tip in the stomach. The heart, mediastinum and pulmonary gerson are unremarkable. The lungs are clear. There is no pleural effusion. Median sternotomy wires are identified. The bony thorax is unremarkable. Impression: A nasogastric catheter is in satisfactory position with its tip in the stomach. Report Electronically Signed By: Magdy Rausch 04/24/2025 4:39:05 AM [EST]
[2025-04-24 06:35] LABS: ANA Screen, IFA NEGATIVE (NEGATIVE)
[2025-04-24 06:35] LABS: Vitamin B1 (Thiamine)* 7 nmol/L (8-30)
[2025-04-24 06:40] LABS: Legionella Ag, EIA, Urine* NOT DETECTED
[2025-04-24 06:54] LABS: Basophils # (Auto) 0.1 Thou/mm3 (0.0-0.2); Basophils % (Auto) 1 % (0-2.5); Eosinophils # (Auto) 2.3 Thou/mm3 (0.0-0.5); Eosinophils % (Auto) 25 % (0-10); Hematocrit 28.7 % (36.0-46.0); Hemoglobin 9.4 g/dL (12.0-16.0); Immature Granulocytes Auto 0.05 Thou/mm3 (0.00-0.00); Lymphocytes # (Auto) 1.1 Thou/mm3 (1.0-4.8); Lymphocytes % (Auto) 11 % (10-50); Mean Corpuscular HGB Conc 32.8 g/dl (31.0-37.0); Mean Corpuscular Hemoglobin 27.1 pg (25.0-35.0); Mean Corpuscular Volume 83 fL (80-100); Monocytes # (Auto) 0.5 Thou/mm3 (0.0-0.8); Monocytes % (Auto) 5 % (0-12); Neutrophils # (Auto) 5.4 Thou/mm3 (1.8-7.7); Neutrophils % (Auto) 58 % (37-80); Nucleated Red Blood Cell # 0.00 Thou/mm3 (0.00-0.00); Nucleated Red Blood Cell % 0 /100 WBC (0); Platelet Count 333 Thou/mm3 (140-440); RDW Standard Deviation 56.9 fL (36.4-46.3); Red Blood Count 3.47 Miln/mm3 (4.00-5.20); White Blood Count 9.4 Thou/mm3 (3.6-11.0)
[2025-04-24 07:00] LABS: Alanine Aminotransferase 14 U/L (10-49); Albumin, Serum 3.1 gm/dL (3.4-4.8); Albumin/Globulin Ratio 1.3 (1.2-2.2); Alkaline Phosphatase 94 U/L (46-116); Anion Gap 7 (7-16); Aspartate Amino Transferase 22 U/L (0-34); BUN/Creatinine Ratio 53 Ratio (12-20); Bilirubin,Total 0.2 mg/dL (0.3-1.2); Blood Urea Nitrogen 21 mg/dL (9-23); Calcium 8.6 mg/dL (8.3-10.6); Calcium (Corrected) 9.3 mg/dL (8.5-10.1); Carbon Dioxide 29.0 mMol/L (20.0-31.0); Chloride 109 mMol/L (98-107); Creatinine (Component) 0.4 mg/dL (0.6-1.3); Estimated Creatinine Clearance 120.8 mL/min (>60); Globulin 2.3 gm/dL (2.3-3.5); Glucose 91 mg/dL (74-106); Magnesium 1.6 mg/dL (1.6-2.6); Osmolality,Calculated 291 (275-295); Phosphorous 2.8 mg/dL (2.4-5.1); Potassium 4.5 mMol/L (3.4-5.1); Sodium 145 mMol/L (136-145); Total Protein 5.4 gm/dL (5.7-8.2); eGFR > 60 See Note
--- NOTE | 2025-04-24 08:23 | PD.RESPRO ---
Documentation for date of: 04/24/25 Subjective Subjective Interval history: Patient seen and assessed at bedside. Continues to improve, alert and oriented to self only. Appears to be at baseline. Denies chest pain and shortness of breath. S/p IV Lasix 20 yesterday, good urine output of 2L. Continues to have swelling of her extremities, continue IV Lasix prn and will give one more dose of 20 mg IV.. Magnesium 1.6, replete accordingl total of 6 gm IV. . Swallow evaluation today, if fails, will need PEG tube. Exam Vital Signs Temp Pulse Resp BP Pulse Ox O2 Del Method O2 Flow Rate 97.0 F 51 L 22 H 136/63 H 98 Room Air 2 04/24/25 04:00 04/24/25 07:15 04/24/25 07:15 04/24/25 04:00 04/24/25 07:15 04/24/25 04:00 04/23/25 06:43 FiO2 62 04/16/25 07:43 Narrative Exam General: Awake and in no acute distress. Able to answer simple questions appropriately. Cachectic. HEENT: Normocephalic, atraumatic, mucous membranes dry. Missing upper and bottom teeth. NG tube in place. Heart: Regular rate and rhythm, normal S1 and S2, 4/5 systolic murmur radiating to carotids. Lungs: Mild coarse breath sounds in all lobes, much improved. Abdomen: Soft, nondistended, nontender, positive bowel sounds. No guarding or rebound tenderness. Neurologic: Alert and oriented x1. Strength 5/5 in bilateral upper extremities but R>L. Extremities: 2+ pitting edema of bilateral hands and feet. Left foot transmetatarsal amputation. Right foot second digit amputation. Skin: No rash or ecchymoses. Tinea capitis at frontal scalp. Petechial lesions bilateral lower extremities. Very dry skin. Objective Labs 04/24/25 05:37 04/24/25 05:37 Labs: Laboratory Results - last 24 hr 04/15/25 04/15/25 04/20/25 05:40 11:35 05:26 WBC RBC Hgb Hct MCV MCH MCHC RDW Std Deviation Plt Count Neut % (Auto) Lymph % (Auto) Gall[place] % (Auto) Eos % (Auto) Baso % (Auto) Neut # (Auto) Lymph # (Auto) Gall[place] # (Auto) Eos # (Auto) Baso # (Auto) Immature Gran # (Auto) Absolute Nucleated RBC Immature Gran % Nucleated RBC % Sodium Potassium Chloride Carbon Dioxide Anion Gap BUN Creatinine Estim Creat Clear Calc eGFR BUN/Creatinine Ratio Glucose Calculated Osmolality Calcium Corrected Calcium Phosphorus Magnesium Total Bilirubin AST ALT Alkaline Phosphatase Total Protein Albumin Globulin Albumin/Globulin Ratio Thiamine (Vit B1) Ca 7 L DONNIE Screen NEGATIVE DONNIE Titer TNP DONNIE Titer 2 TNP DONNIE Titer 3 TNP DONNIE Pattern TNP DONNIE Pattern 2 TNP DONNIE Pattern 3 TNP Urine Legionella Ag NOT DETECTED 04/24/25 05:37 WBC 9.4 RBC 3.47 L Hgb 9.4 L Hct 28.7 L MCV 83 MCH 27.1 MCHC 32.8 RDW Std Deviation 56.9 H Plt Count 333 Neut % (Auto) 58 Lymph % (Auto) 11 Gallia % (Auto) 5 Eos % (Auto) 25 H Baso % (Auto) 1 Neut # (Auto) 5.4 Lymph # (Auto) 1.1 Gallia # (Auto) 0.5 Eos # (Auto) 2.3 H Baso # (Auto) 0.1 Immature Gran # (Auto) 0.05 H Absolute Nucleated RBC 0.00 Immature Gran % 1 H Nucleated RBC % 0 Sodium 145 Potassium 4.5 Chloride 109 H Carbon Dioxide 29.0 Anion Gap 7 BUN 21 Creatinine 0.4 L Estim Creat Clear Calc 120.8 eGFR > 60 BUN/Creatinine Ratio 53 H Glucose 91 D Calculated Osmolality 291 Calcium 8.6 Corrected Calcium 9.3 Phosphorus 2.8 Magnesium 1.6 Total Bilirubin 0.2 L AST 22 ALT 14 Alkaline Phosphatase 94 Total Protein 5.4 L Albumin 3.1 L Globulin 2.3 Albumin/Globulin Ratio 1.3 Thiamine (Vit B1) Ca DONNIE Screen DONNIE Titer DONNIE Titer 2 DONNIE Titer 3 DONNIE Pattern DONNIE Pattern 2 DONNIE Pattern 3 Urine Legionella Ag ABG Interpretation ABG results: 04/11/25 04/14/25 04/18/25 21:53 23:37 08:00 ABG pH 7.29 L 7.47 H ABG pCO2 53 H 30 L ABG pO2 90 61 L ABG HCO3 25 21 ABG O2 Saturation 97 94 ABG Base Excess -2 -2 VBG pH 7.36 VBG pCO2 31 L VBG pO2 108 H VBG Base Excess -7 L Quality Measures Quality Measures VTE prophylaxis Advance care planning discussed with:: other Assessment & Plan Assessment Current Active Medications: Generic Name Dose Route Start Last Admin Trade Name Freq PRN Reason Stop Dose Admin Dextrose 50 ml 04/12/25 00:08 04/12/25 12:20 Dextrose 50%-Water Inj 50 Ml Syringe IV 05/12/25 00:07 50 ml Q15MIN PRN Administration BG <50 OR BG <70 & pt unresponsive Enoxaparin Sodium 40 mg 04/12/25 21:00 04/23/25 09:46 Enoxaparin Sod Inj 40 Mg/0.4 Ml Syringe SC 04/26/25 20:59 40 mg QDAY HARPER Administration Folic Acid 1 mg 04/18/25 09:00 04/23/25 09:47 Folic Acid 1 Mg Tablet NG 05/18/25 08:59 1 mg QDAY HARPER Administration Glucagon 1 mg 04/12/25 00:08 Glucagon Inj 1 Mg Vial IM Q15MIN PRN BG <70, and no IV access Hydrocortisone 0 gm 04/19/25 11:30 04/23/25 21:30 Hydrocortisone Cr 1% 30 Gm Tube TOP 05/19/25 11:29 1 appln BID HARPER Administration Ceftriaxone Sodium 2 gm/ 50 mls @ 100 mls/hr 04/21/25 13:28 04/23/25 09:45 Sodium Chloride IV 04/28/25 13:27 100 mls/hr QDAY HARPER Administration Magnesium Sulfate 2 gm in 50 mls @ 25 mls/hr 04/24/25 07:51 Magnesium Sulfate Ivpb IV 04/24/25 09:50 X1 ONE Insulin Degludec 14 unit 04/23/25 09:00 04/23/25 10:04 Insulin Degludec 5 Unit/0.05 Ml (Per 5 Units) SC 05/23/25 08:59 14 unit QDAY HARPER Administration Insulin Human Lispro 0 unit 04/23/25 07:40 04/24/25 06:00 Insulin Lispro (Admelog) 1 Unit/0.01 Ml Unit SC 05/16/25 17:59 Not Given Q6HR [facility] Protocol Levetiracetam 1,000 mg 04/12/25 21:00 04/23/25 21:29 Levetiracetam Inj 100 Mg/Ml Vial 5ml IVP 05/12/25 20:59 1,000 mg Q12HR [facility] Administration Magnesium Hydroxide 30 ml 04/22/25 07:45 Milk Of Magnesia Susp 30 Ml Udc PO 05/22/25 07:44 QDAY PRN CONSTIPATION Protocol Multi-Ingredient Ointment 0 oz 04/12/25 12:30 04/23/25 09:47 Min Oil/Pet,White (Eucerin) Cr 16 Oz Btl TOP 05/12/25 12:29 1 appln DAILY [facility] Administration Multivitamins/Minerals 15 ml 04/20/25 09:00 04/23/25 09:47 Multivitamin 15 Ml Udc NG 05/20/25 08:59 15 ml QDAY HARPER Administration Ondansetron HCl 4 mg 04/11/25 22:23 Ondansetron Inj 2 Mg/Ml Inj 2 Ml IVP 05/11/25 22:22 Q6H PRN NAUSEA OR VOMITING Protocol Pantoprazole Sodium 40 mg 04/12/25 10:30 04/23/25 09:47 Pantoprazole Inj 40 Mg Vial IVP 05/12/25 10:29 40 mg QDAY HARPER Administration Sodium Chloride 4 ml 04/15/25 13:00 04/24/25 07:15 Sodium Cl Rt Mere 3% 4 Ml Nebu (Non-Formulary) INH 05/15/25 12:59 4 ml Q6HRRT [facility] Administration Thiamine HCl 100 mg 04/18/25 09:00 04/23/25 09:47 Thiamine 100 Mg Tablet NG 05/18/25 08:59 100 mg QDAY HARPER Administration Plan Patient is a 69-year-old female with past medical history of CAD s/p CABG with history of previous multiple PCI, moderate aortic stenosis, CVA/stroke, seizure disorder with Keppra, essential hypertension, hyperlipidemia, baseline dementia, slurred speech, history of left transmetatarsal amputation with questionable PAD, history of fall with displaced intra-articular fracture of the left hip status post open reduction internal fixation in June 2024 was brought in to the emergency department of worsening altered mental status. Admitted to ICU for acute metabolic encephalopathy in setting of hypertonic hyponatremia and acute hypothermia. Cardiology consulted due to concern for cardiogenic shock given history of CAD and moderate aortic stenosis. #Distributive shock, likely septic or distributive, unlikely cardiogenic, resolved #Acute hypothermia, improving #Bradycardia secondary to first-degree heart block #History of aortic stenosis, moderate #History of hypertension #History CVA #History of CAD status post CABG with history of previous multiple PCI # HFpEF (EF 60 to 65%) with stage I diastolic dysfunction Home meds include lisinopril 10 mg daily, aspirin 81 mg daily, Plavix 75 mg daily. On physical exam, auscultated 4/5 ejection systolic murmur radiating to carotids. TSH were normal, A1c was 8.1% in lipid profile showed total cholesterol of 123, HDL of 48 and LDL of 53. Chest x-ray with questionable left-sided pneumonia secondary to aspiration. CT chest abdominal with altered showed small bilateral pleural effusions along with significant thickening of gastric mucosa and some constipation. TTE 06/23/2024 showed normal LV size and function. Mild LVH. Stage I diastolic dysfunction. Estimated EF 60-65%. Normal RV size and function. Moderate AV stenosis, mean gradient 21mmHg, vmax 3.1 m/s. Mild thicken MVL. Midl MR, AI. Trace TR. Bradycardia likely secondary to severe hypothermia. Heart rate now improved to 70s to 80s with conservative treatment of hypothermia. TTE 04/12/25 showed normal left ventricular size and function. Mild LVH. Stage I diastolic dysfunction. Estimated EF 60-65%. Normal RV size and function. RVSP 40 mmHg with RAP 3. Moderate AV stenosis, mean gradient 31 mmHg, vmax 3.7 to 3.8m/s. MELE 1 sq cm. Mild thicken MV leaflets. Mild MR, AI and TR. Compared to prior study of 06/24/24- increased velocities. EKG 04/14 shows sinus bradycardia with first-degree AV block, AL 234, QTc 439. Plan: - Unlikely cardiogenic shock as patient only has moderate aortic stenosis with adequate flow. Likely distributive shock secondary to severe hypothermia or possible sepsis with underlying left lower lobe pneumonia. Patient was bradycardic along with hypotensive on admission which improved with rewarming with a Laverne hugger. - Even if the patient has severe aortic stenosis it is unlikely the patient will be a candidate for TAVR given his multiple comorbidities along with her severe protein calorie malnutrition and will not have good outcome as she is unable to do any kind of rehab. Can consider TAVR for her eventually if her overall clinical status improves over the next few months - Heart rate improving with Laverne hugger. As above, EKG shows first-degree AV block however patient remains asymptomatic with no long pauses noted and is therefore not a candidate for pacemaker placement at this time. - Recommend starting losartan 25 mg daily as patient is now on NG tube if BP permits as part of GDMT. - Avoid beta blockers as patient is already bradycardic ? Stable off Levophed and dopamine. Monitor BP. #Hypernatremia #Acute hypokalemia, resolved #Hypomagnesemia # Hypophosphatemia ##Hypocalcemia, resolved Presented with potassium of 2.4 and magnesium 1.1. Overnight given total potassium chloride 40 mEq, magnesium 2 g, calcium gluconate x1. 04/12/2025: Potassium improved to 4.7 at midnight. Calcium improved to 8.7, phosphorus 2.6, magnesium 2.3. ?Keep potassium above 4 and magnesium above 2 - Feeding via NG tube, adjust sodium content if any. #Acute on chronic normocytic anemia #Protein calorie malnutrition #Upper and lower extremity swelling Patient presented with altered mental status and acute metabolic encephalopathy, unclear etiology. Appears to have poor oral intake as the patient was also noted to have severely low albumin at 1.5 as well as total protein at 2.5. Hemoglobin 7.6. In setting of acute gastritis and severe malnutrition. BMI 19.6. 04/23/25: Swelling of hands and feet likely secondary to increased intake. - IV Lasix 20 or oral recommended as needed to reduce swelling - Strict I's and O's ? NG tube feeds as above. - Potential PEG tube placement per primary team - GI following - Workup per primary team -continue IV Lasix prn and will give one more dose of 20 mg IV.. Magnesium 1.6, replete accordingly - total of 6 gm IV. . Swallow evaluation today, if fails, will need PEG tube. #[id number] type 2 diabetes #Hx of LT foot metatrasal amputation and RT foot 2nd digit amputation A1c 8.1. Home meds include metformin 1000 mg twice daily. ?SSI per primary team #Acute encephalopathy in setting of #Hypotonic hyponatremia, severe #Left base PNA, possibly aspiration #Right upper lobe pulmonary nodules #Bilateral pleural effusions, small #Pancytopenia #Proctitis, likely acute #Seizure disorder #Hyperlipidemia #Constipation Vs. bowel ileus #Tinea Capitis #Nasal lesion, possibly basal cell carcinoma #Axillary lymphadenopathy #Baseline dementia #History of questionable PAD with transmetatarsal amputation and right toe amputation #COPD Thank you for your consultation, please do not hesitate to reach out if you have any question or concern Patient plan of care was discussed with the attending physician, Dr. Castellanos. Kenisha Marsh, PGY-1 Attending Provider Attestation/Addendum I have personally seen and examined the patient separately on the above date of service and discussed the plan of care with the resident. I reviewed the resident Dr. Kenisha Marsh consultation progress note and agree with the resident findings and plan in the note above and have also edited the documentation to reflect my findings and plan. Jose Castellanos M.D. Interventional Cardiology
[2025-04-24] MEDS: MIN OIL/PET,WHITE (Eucerin) CR 16 OZ BTL TOP (08:29)
[2025-04-24] MEDS: Hydrocortisone Cr 1% 30 GM TUBE TOP ×2 (08:29→21:00)
[2025-04-24] MEDS: Magnesium Sulfate 2 GM Ivpb 2 GM/50 ML BAG IV (08:30)
[2025-04-24] MEDS: cefTRIAXone 2 GM in SODIUM CHLORIDE 0.9% (Popper) 50 ML IV (08:30)
[2025-04-24] MEDS: ENOXAPARIN SOD INJ 40 MG/0.4 ML SYRINGE SC (08:30)
[2025-04-24] MEDS: MULTIVITAMIN 15 ML UDC NG (08:30)
[2025-04-24] MEDS: levETIRAcetam INJ 100 MG/ML VIAL 5ML 1000 MG IVP ×2 (08:31→21:45)
[2025-04-24] MEDS: THIAMINE 100 MG TABLET NG (08:31)
[2025-04-24] MEDS: FOLIC ACID 1 MG TABLET NG (08:31)
[2025-04-24] MEDS: INSULIN DEGLUDEC 5 UNIT/0.05 ML (PER 5 UNITS) 14 UNIT SC (08:32)
--- NOTE | 2025-04-24 09:41 | ESPR_ITS ---
<Statement entered by Keaton Baltazar MD - 04/24/25 15:38> I have reviewed the note and agree with the resident's assessment & plan with exceptions as below. I have personally reviewed labs, imaging, home meds/prior records, examined the patient, formulated and discussed management plan with my attending Patient was seen and evaluated at bedside this morning. No overnight. Patient this morning and again did not pass her swallow eval which she took only around 2 or 3 bites and then proceeded to cough and was not engaging with eating. Patient again pulled out her NG tube therefore order was placed to place NG tube again for p.o. administration of medications and diet. Spoke with patient's son about this and he was okay to place NG tube again as well as get a video swallow exam as well. Will discuss with patient's son tomorrow possibility of either PEG tube or at this time if he refuses patient cannot continue to have NG tube in place therefore other option would be possibly hospice if he does not want any surgical intervention at this time as patient is high risk for aspiration. Keaton Baltazar PGY2 Disclaimer: Even though this this note was dictated by speech recognition and even though it was carefully revised there may still be minor errors in gym teacher due to voice recognition software. Documentation for date of: 04/24/25 Subjective Subjective Interval history: No acute overnight events. Patient seen and examined at bedside. Patient continues to speak in full sentences with better enunciation. Alert and oriented x 1 only and able to follow commands. Reports much improved chest pain denies any other bodily pain. Vitals labs reviewed. SBP 120-150. Telemetry reviewed heart rate 50s. Hemoglobin stable 9.4, BUN downtrending now 21. Magnesium 1.6 repleted with 2 g. Speech evaluation recommends VFSS, ordered with consent of son. Plan for goals of care discussion tomorrow. NG tube pulled out, re-insert. Continue ceftriaxone and NG tube feedings. Exam Vital Signs Temp Pulse Resp BP Pulse Ox O2 Del Method O2 Flow Rate 97.0 F 51 L 22 H 136/63 H 98 Room Air 2 04/24/25 04:00 04/24/25 07:15 04/24/25 07:15 04/24/25 04:00 04/24/25 07:15 04/24/25 04:00 04/23/25 06:43 FiO2 62 04/16/25 07:43 Narrative Exam GENERAL: no acute distress, speaking in short sentences, AOx1 to person only HEENT: mucous membranes dry, bilateral sclera anicteric, crusted lips, seborrheic dermatitis CARDIOVASCULAR: regular rate and rhythm, 4/6 systolic ejection murmur PULMONARY: CTAB ABDOMINAL: soft, non-tender, non-distended, no rebound/guarding, bowel sounds present EXTREMITIES: 2+ pitting edema bilateral thighs, L foot tarsal amputation, R foot 2nd digit amputation, LUE swelling SKIN: warm and dry, widespread small skin lesions scabbed over, dermatitis much improved NEURO: CN II-XII grossly intact, able to follow instructions Objective Labs 04/24/25 05:37 04/24/25 05:37 Labs: Laboratory Results - last 24 hr 04/15/25 04/15/25 04/20/25 05:40 11:35 05:26 WBC RBC Hgb Hct MCV MCH MCHC RDW Std Deviation Plt Count Neut % (Auto) Lymph % (Auto) Butler % (Auto) Eos % (Auto) Baso % (Auto) Neut # (Auto) Lymph # (Auto) Butler # (Auto) Eos # (Auto) Baso # (Auto) Immature Gran # (Auto) Absolute Nucleated RBC Immature Gran % Nucleated RBC % Sodium Potassium Chloride Carbon Dioxide Anion Gap BUN Creatinine Estim Creat Clear Calc eGFR BUN/Creatinine Ratio Glucose Calculated Osmolality Calcium Corrected Calcium Phosphorus Magnesium Total Bilirubin AST ALT Alkaline Phosphatase Total Protein Albumin Globulin Albumin/Globulin Ratio Thiamine (Vit B1) Ca 7 L DONNIE Screen NEGATIVE DONNIE Titer TNP DONNIE Titer 2 TNP DONNIE Titer 3 TNP DONNIE Pattern TNP DONNIE Pattern 2 TNP DONNIE Pattern 3 TNP Urine Legionella Ag NOT DETECTED 04/24/25 05:37 WBC 9.4 RBC 3.47 L Hgb 9.4 L Hct 28.7 L MCV 83 MCH 27.1 MCHC 32.8 RDW Std Deviation 56.9 H Plt Count 333 Neut % (Auto) 58 Lymph % (Auto) 11 Butler % (Auto) 5 Eos % (Auto) 25 H Baso % (Auto) 1 Neut # (Auto) 5.4 Lymph # (Auto) 1.1 Butler # (Auto) 0.5 Eos # (Auto) 2.3 H Baso # (Auto) 0.1 Immature Gran # (Auto) 0.05 H Absolute Nucleated RBC 0.00 Immature Gran % 1 H Nucleated RBC % 0 Sodium 145 Potassium 4.5 Chloride 109 H Carbon Dioxide 29.0 Anion Gap 7 BUN 21 Creatinine 0.4 L Estim Creat Clear Calc 120.8 eGFR > 60 BUN/Creatinine Ratio 53 H Glucose 91 D Calculated Osmolality 291 Calcium 8.6 Corrected Calcium 9.3 Phosphorus 2.8 Magnesium 1.6 Total Bilirubin 0.2 L AST 22 ALT 14 Alkaline Phosphatase 94 Total Protein 5.4 L Albumin 3.1 L Globulin 2.3 Albumin/Globulin Ratio 1.3 Thiamine (Vit B1) Ca DONNIE Screen DONNIE Titer DONNIE Titer 2 DONNIE Titer 3 DONNIE Pattern DONNIE Pattern 2 DONNIE Pattern 3 Urine Legionella Ag ABG Interpretation ABG results: 04/11/25 04/14/25 04/18/25 21:53 23:37 08:00 ABG pH 7.29 L 7.47 H ABG pCO2 53 H 30 L ABG pO2 90 61 L ABG HCO3 25 21 ABG O2 Saturation 97 94 ABG Base Excess -2 -2 VBG pH 7.36 VBG pCO2 31 L VBG pO2 108 H VBG Base Excess -7 L Quality Measures Quality Measures VTE prophylaxis Advance care planning discussed with:: child Assessment & Plan Assessment Current Active Medications: Generic Name Dose Route Start Last Admin Trade Name Freq PRN Reason Stop Dose Admin Dextrose 50 ml 04/12/25 00:08 04/12/25 12:20 Dextrose 50%-Water Inj 50 Ml Syringe IV 05/12/25 00:07 50 ml Q15MIN PRN Administration BG <50 OR BG <70 & pt unresponsive Enoxaparin Sodium 40 mg 04/12/25 21:00 04/24/25 08:30 Enoxaparin Sod Inj 40 Mg/0.4 Ml Syringe SC 04/26/25 20:59 40 mg QDAY HARPER Administration Folic Acid 1 mg 04/18/25 09:00 04/24/25 08:31 Folic Acid 1 Mg Tablet NG 05/18/25 08:59 1 mg QDAY HARPER Administration Glucagon 1 mg 04/12/25 00:08 Glucagon Inj 1 Mg Vial IM Q15MIN PRN BG <70, and no IV access Hydrocortisone 0 gm 04/19/25 11:30 04/24/25 08:29 Hydrocortisone Cr 1% 30 Gm Tube TOP 05/19/25 11:29 1 appln BID HARPER Administration Ceftriaxone Sodium 2 gm/ 50 mls @ 100 mls/hr 04/21/25 13:28 04/24/25 08:30 Sodium Chloride IV 04/28/25 13:27 100 mls/hr QDAY HARPER Administration Magnesium Sulfate 2 gm in 50 mls @ 25 mls/hr 04/24/25 07:51 04/24/25 08:30 Magnesium Sulfate Ivpb IV 04/24/25 09:50 25 mls/hr X1 ONE Administration Insulin Degludec 14 unit 04/23/25 09:00 04/24/25 08:32 Insulin Degludec 5 Unit/0.05 Ml (Per 5 Units) SC 05/23/25 08:59 14 unit QDAY HARPER Administration Insulin Human Lispro 0 unit 04/23/25 07:40 04/24/25 06:00 Insulin Lispro (Admelog) 1 Unit/0.01 Ml Unit SC 05/16/25 17:59 Not Given Q6HR HARPER Protocol Levetiracetam 1,000 mg 04/12/25 21:00 04/24/25 08:31 Levetiracetam Inj 100 Mg/Ml Vial 5ml IVP 05/12/25 20:59 1,000 mg Q12HR HARPER Administration Magnesium Hydroxide 30 ml 04/22/25 07:45 Milk Of Magnesia Susp 30 Ml Udc PO 05/22/25 07:44 QDAY PRN CONSTIPATION Protocol Multi-Ingredient Ointment 0 oz 04/12/25 12:30 04/24/25 08:29 Min Oil/Pet,White (Eucerin) Cr 16 Oz Btl TOP 05/12/25 12:29 1 appln DAILY HARPER Administration Multivitamins/Minerals 15 ml 04/20/25 09:00 04/24/25 08:30 Multivitamin 15 Ml Udc NG 05/20/25 08:59 15 ml QDAY HARPER Administration Ondansetron HCl 4 mg 04/11/25 22:23 Ondansetron Inj 2 Mg/Ml Inj 2 Ml IVP 05/11/25 22:22 Q6H PRN NAUSEA OR VOMITING Protocol Pantoprazole Sodium 40 mg 04/12/25 10:30 04/24/25 08:31 Pantoprazole Inj 40 Mg Vial IVP 05/12/25 10:29 40 mg QDAY HARPER Administration Sodium Chloride 4 ml 04/15/25 13:00 04/24/25 07:15 Sodium Cl Rt Mere 3% 4 Ml Nebu (Non-Formulary) INH 05/15/25 12:59 4 ml Q6HRRT HARPER Administration Thiamine HCl 100 mg 04/18/25 09:00 04/24/25 08:31 Thiamine 100 Mg Tablet NG 05/18/25 08:59 100 mg QDAY HARPER Administration Plan Jill Holden 69F pmhx significant for primary hypertension, NIDDM2, CAD s/p CABG, hx of CVA, seizure disorder, age-related dementia, left diabetic foot metatarsal amputation, right foot second digit amputation and COPD, who presented to [facility] ED for acute encephalopathy, initially admitted to ICU for distributive shock from unknown source requiring pressor support and downgraded to floors on 04/13. #Staphylococcus aureus bacteremia #Acute infectious encephalopathy #Dysphagia #L Base PNA, likely aspiration with gram-negative versus anaerobic bacteria #Hypothermia, resolved #Distributive shock, resolved Patient presented obtunded with AMS, BP 79/48 MAP 51-52, HR 46, temp 84.7, WBC 2.2. Directly admitted to ICU requiring dopamine and Levophed pressors. Eventually weaned off and downgraded 04/13. Per ICU, mentation has improved since admission following broad spectrum abx and fluid resuscitation. UA unremarkable, lactic acid 0.9 on admission. Lipase 115. Ammonia 37. CRP neg, ESR 55. BCx 1/2 bottles growing GPC. Repeat BCx NGTD. sputum Cx NGTD. CT Head no acute processes. CTAP showed L base PNA, consider aspiration PNA, R upper lobe pulmonary nodules, multiple subcentimeter axillary lymph nodes, small b/l pleural effusions, significant thickening of gastric mucosa, abundant stool in rectosigmoid but no bowel obstruction, rectal wall thickening, consider proctitis, severe osteopenia Ddx: likely septic from L PNA, possible proctitis, gastritis, vs osteomyelitis as patient improved with fluids and abx. Less likely cardiogenic as patient condition has improved off pressors without continued ionotropic support. 04/15 repeat CXR no improvement in diffuse significant L lung PNA RUE swelling noted following PPN initiation, and RUE US negative for DVT. PPN (04/15-04/18) Vancomycin (04/11-04/21), metronidazole (04/11, 04/14 -04/21), cefepime (04/14- 04/21) Plan: - Continue ceftriaxone (04/13-04/14, 04/21- - Chest physiotherapy on board - NG tube feeding (04/17- - EXPLOSIVES HANDLER: recommend VFSS, ordered with son's consent - Plan for GOC discussion tomorrow with son in AM #Severe thrombocytopenia, resolved #Anemia of chronic disease, stable On admission Hgb platelets 34, on 04/15/2025, count was 29. Peripheral smear shows normocytic normochronic anemia with normal serium iron and TIBC, consistent with anemia of chronic disease, severe thrombocytopenia, and mild neutropenia. Vitals remains stable at this time. 04/15 liver ultrasound shows normal gallbladder, normal blood, bile duct, mild hepatomegaly, partial visualization of right pleural fluid. B12 1400, folate wnl, HIV and hep neg, retic count 0.8, LDH 277. Likely 2/2 infection Plan: - Trend CBC #R upper lobe pulmonary nodules #Multiple subcentimeter axillary lymph nodes #Rectal wall thickening Findings CTAP as above. No history of cancer per chart review however son states has hx of abdominal mass. Plan: - Abx as above - Recommend to follow up outpatient for further management - Discussed with gastroenterology regarding rectal wall thickening found on imaging, likely secondary to distention, appreciate recommendations #Bradycardia 2/2 first degree AV block -improved #Moderate aortic stenosis #Essential HTN Patient presented with HR 46 on admission. Resolved following resolution of hypothermia, fluid resuscitation and abx. TSH wnl 2.73, 04/12 TTE: Normal left ventricular size and function. Mild LVH. Stage I diastolic dysfunction. Estimated EF 60-65%. Normal RV size and function. RVSP 40 mmHg with RAP 3. Moderate AV stenosis, mean gradient 31 mmHg, vmax 3.7 to 3.8m/s. MELE 1 sq cm. Mild thickened MV leaflets. Mild MR, AI and TR. Compared to prior study of 06/24/24- increased velocities. Likely 2/2 infectious etiology vs heart block. Plan: - Cardiology consulted, recs appreciated: likely 2/2 hypothermia, unlikely good candidate for TAVR for or pacemaker for first degree AV block due to patient being asymptomatic at this time - Telemetry for cardiac monitoring - Keep K>4 and Mg>2 at all times #Electrolyte abnormalities #Hypernatremia #Hypokalemia, resolved #Hyperchloremia #Hypobicarbinemia, improving #Hypophosphatemia, resolved #Hypomagnesemia, resolved #Hypocalcemia, resolved On admission, Na 155, K 2.4, Cl 129, bicarb 18.5, glucose 65, Ca 7.0, phos 2.3, Mg 1.1. s/p D5W in ICU Plan: - Recheck and replete as necessary #NIDDM2 #Hx of L diabetic foot tarsal amputation #Hx of osteomyelitis of R foot distal fourth metatarsal and proximal phalanx fourth digit #Hx of R big toe abscess s/p I&D of R big toe and 2nd toe amputation (12/04/24) Admission A1c 8.1. Per med rec takes metformin 1g BID. Possible osteomyelitis as source of distributive shock. Plan: - Degludac 14u - SSI step [address] #Hx of seizures Per history. On home Keppra 1g BID. Unknown when last seizure occurred. Plan: - Continue home Keppra 1g BID - Consider ordering EEG and/or consulting neurology if encephalopathy worsens #Diffuse excoriations, improved #Xeroderma vs atopic dermatitis vs ezcema In ICU initially some concern for scabies, and per son, patient received permethrin and developed skin lesions. Diffuse crusted rash over forehead. Patient continues to scratch however likely 2/2 allergy to permethrin. Per son, patient's skin has been very dry and leathery since returning from rehab. Despite moisturizers, skin remains very dry. Plan: - Hydrocortisone 1% topical - Wound care consulted, recs appreciated Hospital management: Lines: PIV Diet: NG Glucerna feeds Bowel: None GI prophylaxis: IV pantoprazole 40 mg QD DVT prophylaxis: SCDs Disposition: tele for IV abx CODE STATUS: FULL CODE This case was discussed with my attending physician, Dr. Angeles, and PGY-2 Dr. Gunn. Linda Marsh, DO Internal Medicine PGY-1 Attending Provider Attestation/Addendum I have seen and examined the patient. I was physically present for the montez portions of the services provided including history, physical exam, diagnosis, treatment plans and orders. I agree with assessment and plan of care as documented by residents. Patient seen and examined at bedside this morning. Appears more alert and awake compared to yesterday, able to answer few questions, oriented to herself only. Attempted another swallow evaluation today, patient failed again. She also pulled her NG tube which was replaced. We will also obtain a video swallow exam. With patient's age, multiple comorbidities, ongoing dementia, improvement in her dysphagia appears less likely. We will rediscuss with family regarding goals of care including PEG tube placement. Vital signs and lab results remained stable, continues to receive nutrition through NG tube feeding. Even though this this note was carefully revised there may still be minor errors in gym teacher due to voice recognition software. Jake Angeles MD
--- NOTE | 2025-04-24 10:06 | PC.SS ---
[employer] fielded phone call from APS staff, Rosalba ; requesting update on patient. [employer] provided update, informed APS staff that discharge plan is home with home health services.
[2025-04-24 13:55] LABS: Eosinophils (Manual) 22 % (0-4); Lymphocytes (Manual) 3 % (20-44); Monocytes (Manual) 4 % (2-9); Neutrophils (Manual) 71 % (50-70)
--- NOTE | 2025-04-24 14:03 | PC.NURSE ---
At approximately 1340, I observed that patient had removed her Nasogastric tube. I notified Dr Gunn, whom will be calling the patient's son, and then informing me of the plan of action for patient.
--- NOTE | 2025-04-24 15:10 | XR_ITS ---
EXAMINATION: AP chest single view TECHNIQUE: AP portable semiupright chest single view Date and time: April 24, 2025, 1517 hours INDICATIONS: Post orogastric tube placement FINDINGS: Orogastric tube in the stomach, the tip is in the body the stomach Prominent pneumonia left base The film is rotated LPO IMPRESSION: Prominent left base pneumonia
--- NOTE | 2025-04-24 15:12 | PC.NURSE ---
Notified Dr Marsh that patient had 433ml on bladder scan. No orders for straight catheter at this time. Will recheck bladder scan at 1800.
--- NOTE | 2025-04-24 15:38 | PD.IMPROG ---
Documentation for date of: 04/24/25 Subjective Subjective Interval history: Patient more alert NGT was reinserted for enteral feeding Exam Vital Signs Temp Pulse Resp BP Pulse Ox O2 Del Method O2 Flow Rate 96.9 F 52 L 18 149/73 H 97 Room Air 2 04/24/25 12:00 04/24/25 13:49 04/24/25 13:49 04/24/25 12:00 04/24/25 13:49 04/24/25 12:00 04/23/25 06:43 FiO2 62 04/16/25 07:43 Objective Labs 04/24/25 05:37 04/24/25 05:37 Labs: Laboratory Results - last 24 hr 04/15/25 04/15/25 04/20/25 05:40 11:35 05:26 WBC RBC Hgb Hct MCV MCH MCHC RDW Std Deviation Plt Count Neut % (Auto) Lymph % (Auto) [place] % (Auto) Eos % (Auto) Baso % (Auto) Neut # (Auto) Lymph # (Auto) [place] # (Auto) Eos # (Auto) Baso # (Auto) Immature Gran # (Auto) Absolute Nucleated RBC Immature Gran % Neutrophils % (Manual) Monocytes % (Manual) Eosinophils % (Manual) Nucleated RBC % Lymphocytes (Manual) Sodium Potassium Chloride Carbon Dioxide Anion Gap BUN Creatinine Estim Creat Clear Calc eGFR BUN/Creatinine Ratio Glucose Calculated Osmolality Calcium Corrected Calcium Phosphorus Magnesium Total Bilirubin AST ALT Alkaline Phosphatase Total Protein Albumin Globulin Albumin/Globulin Ratio Thiamine (Vit B1) Ca 7 L DONNIE Screen NEGATIVE DONNIE Titer TNP DONNIE Titer 2 TNP DONNIE Titer 3 TNP DONNIE Pattern TNP DONNIE Pattern 2 TNP DONNIE Pattern 3 TNP Urine Legionella Ag NOT DETECTED 04/24/25 05:37 WBC 9.4 RBC 3.47 L Hgb 9.4 L Hct 28.7 L MCV 83 MCH 27.1 MCHC 32.8 RDW Std Deviation 56.9 H Plt Count 333 Neut % (Auto) 58 Lymph % (Auto) 11 [place] % (Auto) 5 Eos % (Auto) 25 H Baso % (Auto) 1 Neut # (Auto) 5.4 Lymph # (Auto) 1.1 [place] # (Auto) 0.5 Eos # (Auto) 2.3 H Baso # (Auto) 0.1 Immature Gran # (Auto) 0.05 H Absolute Nucleated RBC 0.00 Immature Gran % 1 H Neutrophils % (Manual) 71 H Monocytes % (Manual) 4 Eosinophils % (Manual) 22 H Nucleated RBC % 0 Lymphocytes (Manual) 3 L Sodium 145 Potassium 4.5 Chloride 109 H Carbon Dioxide 29.0 Anion Gap 7 BUN 21 Creatinine 0.4 L Estim Creat Clear Calc 120.8 eGFR > 60 BUN/Creatinine Ratio 53 H Glucose 91 D Calculated Osmolality 291 Calcium 8.6 Corrected Calcium 9.3 Phosphorus 2.8 Magnesium 1.6 Total Bilirubin 0.2 L AST 22 ALT 14 Alkaline Phosphatase 94 Total Protein 5.4 L Albumin 3.1 L Globulin 2.3 Albumin/Globulin Ratio 1.3 Thiamine (Vit B1) Ca DONNIE Screen DONNIE Titer DONNIE Titer 2 DONNIE Titer 3 DONNIE Pattern DONNIE Pattern 2 DONNIE Pattern 3 Urine Legionella Ag Impressions Impression: Dysphagia Failure to thrive will follow-up with the family as per their wishes ABG Interpretation ABG results: 04/11/25 04/14/25 04/18/25 21:53 23:37 08:00 ABG pH 7.29 L 7.47 H ABG pCO2 53 H 30 L ABG pO2 90 61 L ABG HCO3 25 21 ABG O2 Saturation 97 94 ABG Base Excess -2 -2 VBG pH 7.36 VBG pCO2 31 L VBG pO2 108 H VBG Base Excess -7 L Assessment & Plan A&P Narrative Patient is a 69-year-old female with past medical history of CAD s/p CABG with history of previous multiple PCI, moderate aortic stenosis, CVA/stroke, seizure disorder with Keppra, essential hypertension, hyperlipidemia, baseline dementia, slurred speech, history of left transmetatarsal amputation with questionable PAD, history of fall with displaced intra-articular fracture of the left hip status post open reduction internal fixation in June 2024 was brought in to the emergency department of worsening altered mental status. Admitted to ICU for acute metabolic encephalopathy in setting of hypertonic hyponatremia and acute hypothermia. Cardiology consulted due to concern for cardiogenic shock given history of CAD and moderate aortic stenosis. #Distributive shock, likely septic or distributive, unlikely cardiogenic, resolved #Acute hypothermia, improving #Bradycardia secondary to first-degree heart block #History of aortic stenosis, moderate #History of hypertension #History CVA #History of CAD status post CABG with history of previous multiple PCI # HFpEF (EF 60 to 65%) with stage I diastolic dysfunction Home meds include lisinopril 10 mg daily, aspirin 81 mg daily, Plavix 75 mg daily. On physical exam, auscultated 4/5 ejection systolic murmur radiating to carotids. TSH were normal, A1c was 8.1% in lipid profile showed total cholesterol of 123, HDL of 48 and LDL of 53. Chest x-ray with questionable left-sided pneumonia secondary to aspiration. CT chest abdominal with altered showed small bilateral pleural effusions along with significant thickening of gastric mucosa and some constipation. TTE 06/23/2024 showed normal LV size and function. Mild LVH. Stage I diastolic dysfunction. Estimated EF 60-65%. Normal RV size and function. Moderate AV stenosis, mean gradient 21mmHg, vmax 3.1 m/s. Mild thicken MVL. Midl MR, AI. Trace TR. Bradycardia likely secondary to severe hypothermia. Heart rate now improved to 70s to 80s with conservative treatment of hypothermia. TTE 04/12/25 showed normal left ventricular size and function. Mild LVH. Stage I diastolic dysfunction. Estimated EF 60-65%. Normal RV size and function. RVSP 40 mmHg with RAP 3. Moderate AV stenosis, mean gradient 31 mmHg, vmax 3.7 to 3.8m/s. MELE 1 sq cm. Mild thicken MV leaflets. Mild MR, AI and TR. Compared to prior study of 06/24/24- increased velocities. EKG 04/14 shows sinus bradycardia with first-degree AV block, GA 234, QTc 439. Plan: - Unlikely cardiogenic shock as patient only has moderate aortic stenosis with adequate flow. Likely distributive shock secondary to severe hypothermia or possible sepsis with underlying left lower lobe pneumonia. Patient was bradycardic along with hypotensive on admission which improved with rewarming with a Laverne hugger. - Even if the patient has severe aortic stenosis it is unlikely the patient will be a candidate for TAVR given his multiple comorbidities along with her severe protein calorie malnutrition and will not have good outcome as she is unable to do any kind of rehab. Can consider TAVR for her eventually if her overall clinical status improves over the next few months - Heart rate improving with Laverne hugger. As above, EKG shows first-degree AV block however patient remains asymptomatic with no long pauses noted and is therefore not a candidate for pacemaker placement at this time. - Recommend starting losartan 25 mg daily as patient is now on NG tube if BP permits as part of GDMT. - Avoid beta blockers as patient is already bradycardic ? Stable off Levophed and dopamine. Monitor BP. 04/21/2025 Diuresed well over the last 24 hours with 20 mg IV Lasix 2600 mL urine output but intake was not accurately measured. Recommend strict input output Patient's BUN actually improved from 37 to 33 with the diuresis and creatinine is stable at 0.5 Potassium improved from 5.3-4.8. Magnesium slightly low at 1.8 Recommend to replace magnesium sulfate. Continue as needed Lasix 20 mg IV or oral or NG tube based on her weights and if patient continues to have leg swelling. Patient is still on NG tube feeds and primary team is discussing with the patient regarding PEG tube placement. GI team also following. Otherwise patient is hemodynamically stable and as noted previously patient needs to follow-up with cardiology and if her clinical status improves then we can plan for further workup for the patient otherwise at this point of time we will continue with medical treatment. Blood pressure is still soft and hold off on other medications at the present point of time and recommend to start with losartan 25 mg once daily when blood pressure is elevated. #Hypernatremia #Acute hypokalemia, resolved #Hypomagnesemia # Hypophosphatemia ##Hypocalcemia, resolved Presented with potassium of 2.4 and magnesium 1.1. Overnight given total potassium chloride 40 mEq, magnesium 2 g, calcium gluconate x1. 04/12/2025: Potassium improved to 4.7 at midnight. Calcium improved to 8.7, phosphorus 2.6, magnesium 2.3. ?Keep potassium above 4 and magnesium above 2 - Feeding via NG tube, adjust sodium content if any. #Acute on chronic normocytic anemia #Protein calorie malnutrition Patient presented with altered mental status and acute metabolic encephalopathy, unclear etiology. Appears to have poor oral intake as the patient was also noted to have severely low albumin at 1.5 as well as total protein at 2.5. Hemoglobin 7.6. In setting of acute gastritis and severe malnutrition. BMI 19.6. ? 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 Home meds include metformin 1000 mg twice daily. ?SSI per primary team #Acute encephalopathy in setting of #Hypotonic hyponatremia, severe #Left base PNA, possibly aspiration #Right upper lobe pulmonary nodules #Bilateral pleural effusions, small #Pancytopenia #Proctitis, likely acute #Seizure disorder #Hyperlipidemia #Constipation Vs. bowel ileus #Tinea Capitis #Nasal lesion, possibly basal cell carcinoma #Axillary lymphadenopathy #Baseline dementia #History of questionable PAD with transmetatarsal amputation and right toe amputation #COPD Time Spent With Patient Time: Total time spent is greater than 50% in coordination of care (as documented) at patient's floor/unit and/or counseling patient:
--- NOTE | 2025-04-24 15:58 | PC.NURSE ---
Notified Dr Gunn that patient rectal temperature is 90.8. He instructed to place patient in bear hugger.
--- NOTE | 2025-04-24 16:12 | PC.SS ---
Addendum entered by Daniela Au 04/24/25 16:22: F/u: Patient's son confirmed he will be here tomorrow to meet with physician team between 10-11a.m. Original Note: rounding note: Goals of care discussion will need to be had. Physician team would like this scheduled for tomorrow. Patient may need peg tube. Son is decision maker. Son prefers patient to return home with HH. SS will attempt to contact son.
[2025-04-24] MEDS: FUROSEMIDE INJ 10 MG/ML VIAL 2 ML 20 MG IVP (17:24)
[2025-04-24] MEDS: Magnesium Sulfate 4 GM Ivpb 4 GM/50 ML BAG IV (17:24)
[2025-04-24] MEDS: Milk Of Magnesia Susp 30 ML UDC PO (22:10)
[2025-04-25] VITALS (10 sets, daily range): BP systolic 111–143; BP diastolic 56–73; PULSE 57–71; RESP 13–94; TEMP 36.1–37.1; O2SAT 94–98; BMI 22.5
[2025-04-25] MEDS: SODIUM CL RT SOL 3% 4 ML NEBU (NON-FORMULARY) INH ×3 (01:01→12:43)
[2025-04-25] MEDS: INSULIN LISPRO (AdmeLOG) 1 UNIT/0.01 ML UNIT SC ×2 (02:05→06:18)
[2025-04-25 06:24] LABS: Alanine Aminotransferase 26 U/L (10-49); Albumin, Serum 2.9 gm/dL (3.4-4.8); Albumin/Globulin Ratio 1.3 (1.2-2.2); Alkaline Phosphatase 136 U/L (46-116); Anion Gap 7 (7-16); Aspartate Amino Transferase 48 U/L (0-34); BUN/Creatinine Ratio 65 Ratio (12-20); Bilirubin,Total < 0.2 mg/dL (0.3-1.2); Blood Urea Nitrogen 26 mg/dL (9-23); Calcium 8.4 mg/dL (8.3-10.6); Calcium (Corrected) 9.3 mg/dL (8.5-10.1); Carbon Dioxide 29.1 mMol/L (20.0-31.0); Chloride 108 mMol/L (98-107); Creatinine (Component) 0.4 mg/dL (0.6-1.3); Estimated Creatinine Clearance 120.8 mL/min (>60); Globulin 2.2 gm/dL (2.3-3.5); Glucose 162 mg/dL (74-106); Magnesium 2.4 mg/dL (1.6-2.6); Osmolality,Calculated 295 (275-295); Potassium 5.0 mMol/L (3.4-5.1); Sodium 144 mMol/L (136-145); Total Protein 5.1 gm/dL (5.7-8.2); eGFR > 60 See Note
[2025-04-25] MEDS: THIAMINE 100 MG TABLET NG (09:06)
[2025-04-25] MEDS: MULTIVITAMIN 15 ML UDC NG (09:06)
[2025-04-25] MEDS: FOLIC ACID 1 MG TABLET NG (09:06)
[2025-04-25] MEDS: cefTRIAXone 2 GM in SODIUM CHLORIDE 0.9% (Popper) 50 ML IV (09:07)
[2025-04-25] MEDS: Hydrocortisone Cr 1% 30 GM TUBE TOP ×2 (09:07→20:30)
[2025-04-25] MEDS: MIN OIL/PET,WHITE (Eucerin) CR 16 OZ BTL TOP (09:07)
[2025-04-25] MEDS: levETIRAcetam INJ 100 MG/ML VIAL 5ML 1000 MG IVP ×2 (09:08→20:40)
[2025-04-25] MEDS: INSULIN DEGLUDEC 5 UNIT/0.05 ML (PER 5 UNITS) 14 UNIT SC (09:08)
[2025-04-25] MEDS: ENOXAPARIN SOD INJ 40 MG/0.4 ML SYRINGE SC (09:09)
[2025-04-25 11:05] LABS: Basophils # (Auto) 0.1 Thou/mm3 (0.0-0.2); Basophils % (Auto) 1 % (0-2.5); Eosinophils # (Auto) 1.5 Thou/mm3 (0.0-0.5); Eosinophils % (Auto) 20 % (0-10); Hematocrit 30.5 % (36.0-46.0); Hemoglobin 9.9 g/dL (12.0-16.0); Immature Granulocytes Auto 0.03 Thou/mm3 (0.00-0.00); Lymphocytes # (Auto) 0.6 Thou/mm3 (1.0-4.8); Lymphocytes % (Auto) 7 % (10-50); Mean Corpuscular HGB Conc 32.5 g/dl (31.0-37.0); Mean Corpuscular Hemoglobin 26.7 pg (25.0-35.0); Mean Corpuscular Volume 82 fL (80-100); Monocytes # (Auto) 0.3 Thou/mm3 (0.0-0.8); Monocytes % (Auto) 4 % (0-12); Neutrophils # (Auto) 5.2 Thou/mm3 (1.8-7.7); Neutrophils % (Auto) 67 % (37-80); Nucleated Red Blood Cell # 0.00 Thou/mm3 (0.00-0.00); Nucleated Red Blood Cell % 0 /100 WBC (0); Platelet Count 322 Thou/mm3 (140-440); RDW Standard Deviation 55.6 fL (36.4-46.3); Red Blood Count 3.71 Miln/mm3 (4.00-5.20); White Blood Count 7.7 Thou/mm3 (3.6-11.0)
--- NOTE | 2025-04-25 14:32 | PD.RESPRO ---
Documentation for date of: 04/25/25 Subjective Subjective Interval history: Patient was seen and assessed at bedside. Continuing to improve. Alert and oriented x2. No new complaints. Continues to be normotensive. Noted 750 cc output s/p IV Lasix. Swelling in hands have improved, IV lasix as needed. Potassium 5.0, magnesium 2.4. Creatinine 0.4. Plan for MBS tomorrow, if fail plan for PEG placement per primary team. Exam Vital Signs Temp Pulse Resp BP Pulse Ox O2 Del Method O2 Flow Rate 97.8 F 57 L 22 H 118/63 97 Room Air 2 04/25/25 11:34 04/25/25 12:43 04/25/25 12:43 04/25/25 11:34 04/25/25 12:43 04/25/25 11:34 04/23/25 06:43 FiO2 62 04/16/25 07:43 Narrative Exam General: Awake and in no acute distress. Able to answer simple questions appropriately. Cachectic. HEENT: Normocephalic, atraumatic, mucous membranes dry. Missing upper and bottom teeth. NG tube in place. Heart: Regular rate and rhythm, normal S1 and S2, 4/5 systolic murmur radiating to carotids. Lungs: Mild coarse breath sounds in all lobes, much improved. Abdomen: Soft, nondistended, nontender, positive bowel sounds. No guarding or rebound tenderness. Neurologic: Alert and oriented x2. Strength 5/5 in bilateral upper extremities but R>L. Extremities: Mild pitting edema of bilateral hands and feet. Left foot transmetatarsal amputation. Right foot second digit amputation. Skin: No rash or ecchymoses. Tinea capitis at frontal scalp. Petechial lesions bilateral lower extremities. Very dry skin. Objective Labs 04/25/25 04:35 04/25/25 04:35 Labs: Laboratory Results - last 24 hr 04/25/25 04:35 WBC 7.7 RBC 3.71 L Hgb 9.9 L Hct 30.5 L MCV 82 MCH 26.7 MCHC 32.5 RDW Std Deviation 55.6 H Plt Count 322 Neut % (Auto) 67 Lymph % (Auto) 7 L [place] % (Auto) 4 Eos % (Auto) 20 H Baso % (Auto) 1 Neut # (Auto) 5.2 Lymph # (Auto) 0.6 L [place] # (Auto) 0.3 Eos # (Auto) 1.5 H Baso # (Auto) 0.1 Immature Gran # (Auto) 0.03 H Absolute Nucleated RBC 0.00 Immature Gran % 0 Nucleated RBC % 0 Sodium 144 Potassium 5.0 D Chloride 108 H Carbon Dioxide 29.1 Anion Gap 7 BUN 26 H Creatinine 0.4 L Estim Creat Clear Calc 120.8 eGFR > 60 BUN/Creatinine Ratio 65 H Glucose 162 H D Calculated Osmolality 295 Calcium 8.4 Corrected Calcium 9.3 Magnesium 2.4 Total Bilirubin < 0.2 L AST 48 H ALT 26 Alkaline Phosphatase 136 H D Total Protein 5.1 L Albumin 2.9 L Globulin 2.2 L Albumin/Globulin Ratio 1.3 ABG Interpretation ABG results: 04/11/25 04/14/25 04/18/25 21:53 23:37 08:00 ABG pH 7.29 L 7.47 H ABG pCO2 53 H 30 L ABG pO2 90 61 L ABG HCO3 25 21 ABG O2 Saturation 97 94 ABG Base Excess -2 -2 VBG pH 7.36 VBG pCO2 31 L VBG pO2 108 H VBG Base Excess -7 L Quality Measures Quality Measures VTE prophylaxis Advance care planning discussed with:: other Assessment & Plan Assessment Current Active Medications: Generic Name Dose Route Start Last Admin Trade Name Mino PRN Reason Stop Dose Admin Dextrose 50 ml 04/12/25 00:08 04/12/25 12:20 Dextrose 50%-Water Inj 50 Ml Syringe IV 05/12/25 00:07 50 ml Q15MIN PRN Administration BG <50 OR BG <70 & pt unresponsive Enoxaparin Sodium 40 mg 04/12/25 21:00 04/25/25 09:09 Enoxaparin Sod Inj 40 Mg/0.4 Ml Syringe SC 04/26/25 20:59 40 mg QDAY HARPER Administration Folic Acid 1 mg 04/18/25 09:00 04/25/25 09:06 Folic Acid 1 Mg Tablet NG 05/18/25 08:59 1 mg QDAY HARPER Administration Glucagon 1 mg 04/12/25 00:08 Glucagon Inj 1 Mg Vial IM Q15MIN PRN BG <70, and no IV access Hydrocortisone 0 gm 04/19/25 11:30 04/25/25 09:07 Hydrocortisone Cr 1% 30 Gm Tube TOP 05/19/25 11:29 1 appln BID HARPER Administration Ceftriaxone Sodium 2 gm/ 50 mls @ 100 mls/hr 04/21/25 13:28 04/25/25 09:07 Sodium Chloride IV 04/28/25 13:27 100 mls/hr QDAY HARPER Administration Insulin Degludec 14 unit 04/23/25 09:00 04/25/25 09:08 Insulin Degludec 5 Unit/0.05 Ml (Per 5 Units) SC 05/23/25 08:59 14 unit QDAY HARPER Administration Insulin Human Lispro 0 unit 04/23/25 07:40 04/25/25 11:43 Insulin Lispro (Admelog) 1 Unit/0.01 Ml Unit SC 05/16/25 17:59 Not Given Q6HR HARPER Protocol Levetiracetam 1,000 mg 04/12/25 21:00 04/25/25 09:08 Levetiracetam Inj 100 Mg/Ml Vial 5ml IVP 05/12/25 20:59 1,000 mg Q12HR HARPER Administration Magnesium Hydroxide 30 ml 04/22/25 07:45 04/24/25 22:10 Milk Of Magnesia Susp 30 Ml Udc PO 05/22/25 07:44 30 ml QDAY PRN Administration CONSTIPATION Protocol Multi-Ingredient Ointment 0 oz 04/12/25 12:30 04/25/25 09:07 Min Oil/Pet,White (Eucerin) Cr 16 Oz Btl TOP 05/12/25 12:29 1 appln DAILY HARPER Administration Multivitamins/Minerals 15 ml 04/20/25 09:00 04/25/25 09:06 Multivitamin 15 Ml Udc NG 05/20/25 08:59 15 ml QDAY HARPER Administration Ondansetron HCl 4 mg 04/11/25 22:23 Ondansetron Inj 2 Mg/Ml Inj 2 Ml IVP 05/11/25 22:22 Q6H PRN NAUSEA OR VOMITING Protocol Pantoprazole Sodium 40 mg 04/12/25 10:30 04/25/25 09:08 Pantoprazole Inj 40 Mg Vial IVP 05/12/25 10:29 40 mg QDAY HARPER Administration Sodium Chloride 4 ml 04/15/25 13:00 04/25/25 12:43 Sodium Cl Rt Mere 3% 4 Ml Nebu (Non-Formulary) INH 05/15/25 12:59 4 ml Q6HRRT HARPER Administration Thiamine HCl 100 mg 04/18/25 09:00 04/25/25 09:06 Thiamine 100 Mg Tablet NG 05/18/25 08:59 100 mg QDAY HARPER Administration Plan Patient is a 69-year-old female with past medical history of CAD s/p CABG with history of previous multiple PCI, moderate aortic stenosis, CVA/stroke, seizure disorder with Keppra, essential hypertension, hyperlipidemia, baseline dementia, slurred speech, history of left transmetatarsal amputation with questionable PAD, history of fall with displaced intra-articular fracture of the left hip status post open reduction internal fixation in June 2024 was brought in to the emergency department of worsening altered mental status. Admitted to ICU for acute metabolic encephalopathy in setting of hypertonic hyponatremia and acute hypothermia. Cardiology consulted due to concern for cardiogenic shock given history of CAD and moderate aortic stenosis. #Distributive shock, likely septic or distributive, unlikely cardiogenic, resolved #Acute hypothermia, improving #Bradycardia secondary to first-degree heart block #History of aortic stenosis, moderate #History of hypertension #History CVA #History of CAD status post CABG with history of previous multiple PCI # HFpEF (EF 60 to 65%) with stage I diastolic dysfunction Home meds include lisinopril 10 mg daily, aspirin 81 mg daily, Plavix 75 mg daily. On physical exam, auscultated 4/5 ejection systolic murmur radiating to carotids. TSH were normal, A1c was 8.1% in lipid profile showed total cholesterol of 123, HDL of 48 and LDL of 53. Chest x-ray with questionable left-sided pneumonia secondary to aspiration. CT chest abdominal with altered showed small bilateral pleural effusions along with significant thickening of gastric mucosa and some constipation. TTE 06/23/2024 showed normal LV size and function. Mild LVH. Stage I diastolic dysfunction. Estimated EF 60-65%. Normal RV size and function. Moderate AV stenosis, mean gradient 21mmHg, vmax 3.1 m/s. Mild thicken MVL. Midl MR, AI. Trace TR. Bradycardia likely secondary to severe hypothermia. Heart rate now improved to 70s to 80s with conservative treatment of hypothermia. TTE 04/12/25 showed normal left ventricular size and function. Mild LVH. Stage I diastolic dysfunction. Estimated EF 60-65%. Normal RV size and function. RVSP 40 mmHg with RAP 3. Moderate AV stenosis, mean gradient 31 mmHg, vmax 3.7 to 3.8m/s. EMLE 1 sq cm. Mild thicken MV leaflets. Mild MR, AI and TR. Compared to prior study of 06/24/24- increased velocities. EKG 04/14 shows sinus bradycardia with first-degree AV block, [place] 234, QTc 439. Plan: - Unlikely cardiogenic shock as patient only has moderate aortic stenosis with adequate flow. Likely distributive shock secondary to severe hypothermia or possible sepsis with underlying left lower lobe pneumonia. Patient was bradycardic along with hypotensive on admission which improved with rewarming with a Laverne hugger. - Even if the patient has severe aortic stenosis it is unlikely the patient will be a candidate for TAVR given his multiple comorbidities along with her severe protein calorie malnutrition and will not have good outcome as she is unable to do any kind of rehab. Can consider TAVR for her eventually if her overall clinical status improves over the next few months - Heart rate improving with Laverne hugger. As above, EKG shows first-degree AV block however patient remains asymptomatic with no long pauses noted and is therefore not a candidate for pacemaker placement at this time. - Recommend starting losartan 25 mg daily as patient is now on NG tube if BP permits as part of GDMT. - Avoid beta blockers as patient is already bradycardic ? Stable off Levophed and dopamine. Monitor BP. #Hypernatremia #Acute hypokalemia, resolved #Hypomagnesemia # Hypophosphatemia ##Hypocalcemia, resolved Presented with potassium of 2.4 and magnesium 1.1. Overnight given total potassium chloride 40 mEq, magnesium 2 g, calcium gluconate x1. 04/12/2025: Potassium improved to 4.7 at midnight. Calcium improved to 8.7, phosphorus 2.6, magnesium 2.3. ?Keep potassium above 4 and magnesium above 2 - Feeding via NG tube, adjust sodium content if any. #Acute on chronic normocytic anemia #Protein calorie malnutrition #Upper and lower extremity swelling Patient presented with altered mental status and acute metabolic encephalopathy, unclear etiology. Appears to have poor oral intake as the patient was also noted to have severely low albumin at 1.5 as well as total protein at 2.5. Hemoglobin 7.6. In setting of acute gastritis and severe malnutrition. BMI 19.6. 10/19/25: Swelling of hands and feet likely secondary to increased intake. - IV Lasix 20 or oral as needed to reduce swelling - Strict I's and O's ? NG tube feeds as above. - Potential PEG tube placement per primary team - GI following - Workup per primary team -continue IV Lasix prn and will give one more dose of 20 mg IV.. Magnesium 1.6, replete accordingly - total of 6 gm IV. . Swallow evaluation today, if fails, will need PEG tube. #[id number] type 2 diabetes #Hx of LT foot metatrasal amputation and RT foot 2nd digit amputation A1c 8.1. Home meds include metformin 1000 mg twice daily. ?SSI per primary team #Acute encephalopathy in setting of #Hypotonic hyponatremia, severe #Left base PNA, possibly aspiration #Right upper lobe pulmonary nodules #Bilateral pleural effusions, small #Pancytopenia #Proctitis, likely acute #Seizure disorder #Hyperlipidemia #Constipation Vs. bowel ileus #Tinea Capitis #Nasal lesion, possibly basal cell carcinoma #Axillary lymphadenopathy #Baseline dementia #History of questionable PAD with transmetatarsal amputation and right toe amputation #COPD Thank you for your consultation, please do not hesitate to reach out if you have any question or concern Patient plan of care was discussed with the attending physician, Dr. Castellanos. Kenisha Marsh, PGY-1 Attending Provider Attestation/Addendum I have personally seen and examined the patient separately on the above date of service and discussed the plan of care with the resident. I reviewed the resident Dr. Kenisha Marsh consultation progress note and agree with the resident findings and plan in the note above and have also edited the documentation to reflect my findings and plan. Jose Castellanos M.D. Interventional Cardiology
--- NOTE | 2025-04-25 15:30 | PC.SS ---
ELECTROMEDICAL SERVICE ENGINEER confirmed with patient's son plan for patient to discharge home. Plan is for video swallow assessment tomorrow. Resident discussed with patient's son that if patient fails swallow evaluation possible PEG tube placement. Discussed with patient's son that if PEG tube is recommended and family declines can transition patient to palliative care. Patient aligned with [facility] health. Palliative agency [facility] be [facility].
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
--- NOTE | 2025-04-25 18:24 | XR_ITS ---
EXAMINATION: AP chest single view TECHNIQUE: Portable AP sitting chest single view INDICATIONS: Reposition orogastric tube FINDINGS: Orogastric tube coiled in stomach satisfactory position Left base pneumonia The film is rotated LPO Median sternotomy wires Mild to moderate vascular congestion IMPRESSION: Orogastric tube in the stomach satisfactory position
--- NOTE | 2025-04-25 20:37 | PD.IMPROG ---
Documentation for date of: 04/25/25 Subjective Subjective Interval history: Patient being fed with the NGT Internal medicine team in contact with the son he is going to make a decision soon about the PEG placement versus palliative care Exam Vital Signs Temp Pulse Resp BP Pulse Ox O2 Del Method O2 Flow Rate 97.2 F 70 21 H 143/73 H 97 Room Air 2 04/25/25 16:00 04/25/25 16:00 04/25/25 16:00 04/25/25 16:00 04/25/25 16:00 04/25/25 16:00 04/25/25 16:00 FiO2 62 04/25/25 16:00 Objective Labs 04/25/25 04:35 04/25/25 04:35 Labs: Laboratory Results - last 24 hr 04/25/25 04:35 WBC 7.7 RBC 3.71 L Hgb 9.9 L Hct 30.5 L MCV 82 MCH 26.7 MCHC 32.5 RDW Std Deviation 55.6 H Plt Count 322 Neut % (Auto) 67 Lymph % (Auto) 7 L [place] % (Auto) 4 Eos % (Auto) 20 H Baso % (Auto) 1 Neut # (Auto) 5.2 Lymph # (Auto) 0.6 L [place] # (Auto) 0.3 Eos # (Auto) 1.5 H Baso # (Auto) 0.1 Immature Gran # (Auto) 0.03 H Absolute Nucleated RBC 0.00 Immature Gran % 0 Nucleated RBC % 0 Sodium 144 Potassium 5.0 D Chloride 108 H Carbon Dioxide 29.1 Anion Gap 7 BUN 26 H Creatinine 0.4 L Estim Creat Clear Calc 120.8 eGFR > 60 BUN/Creatinine Ratio 65 H Glucose 162 H D Calculated Osmolality 295 Calcium 8.4 Corrected Calcium 9.3 Magnesium 2.4 Total Bilirubin < 0.2 L AST 48 H ALT 26 Alkaline Phosphatase 136 H D Total Protein 5.1 L Albumin 2.9 L Globulin 2.2 L Albumin/Globulin Ratio 1.3 Impressions Impression: Failure to thrive Dysphagia Waiting for family decision for PEG placement versus palliative care Continue NGT feeding ABG Interpretation ABG results: 04/11/25 04/14/25 04/18/25 21:53 23:37 08:00 ABG pH 7.29 L 7.47 H ABG pCO2 53 H 30 L ABG pO2 90 61 L ABG HCO3 25 21 ABG O2 Saturation 97 94 ABG Base Excess -2 -2 VBG pH 7.36 VBG pCO2 31 L VBG pO2 108 H VBG Base Excess -7 L Assessment & Plan A&P Narrative Patient is a 69-year-old female with past medical history of CAD s/p CABG with history of previous multiple PCI, moderate aortic stenosis, CVA/stroke, seizure disorder with Keppra, essential hypertension, hyperlipidemia, baseline dementia, slurred speech, history of left transmetatarsal amputation with questionable PAD, history of fall with displaced intra-articular fracture of the left hip status post open reduction internal fixation in June 2024 was brought in to the emergency department of worsening altered mental status. Admitted to ICU for acute metabolic encephalopathy in setting of hypertonic hyponatremia and acute hypothermia. Cardiology consulted due to concern for cardiogenic shock given history of CAD and moderate aortic stenosis. #Distributive shock, likely septic or distributive, unlikely cardiogenic, resolved #Acute hypothermia, improving #Bradycardia secondary to first-degree heart block #History of aortic stenosis, moderate #History of hypertension #History CVA #History of CAD status post CABG with history of previous multiple PCI # HFpEF (EF 60 to 65%) with stage I diastolic dysfunction Home meds include lisinopril 10 mg daily, aspirin 81 mg daily, Plavix 75 mg daily. On physical exam, auscultated 4/5 ejection systolic murmur radiating to carotids. TSH were normal, A1c was 8.1% in lipid profile showed total cholesterol of 123, HDL of 48 and LDL of 53. Chest x-ray with questionable left-sided pneumonia secondary to aspiration. CT chest abdominal with altered showed small bilateral pleural effusions along with significant thickening of gastric mucosa and some constipation. TTE 06/23/2024 showed normal LV size and function. Mild LVH. Stage I diastolic dysfunction. Estimated EF 60-65%. Normal RV size and function. Moderate AV stenosis, mean gradient 21mmHg, vmax 3.1 m/s. Mild thicken MVL. Midl MR, AI. Trace TR. Bradycardia likely secondary to severe hypothermia. Heart rate now improved to 70s to 80s with conservative treatment of hypothermia. TTE 04/12/25 showed normal left ventricular size and function. Mild LVH. Stage I diastolic dysfunction. Estimated EF 60-65%. Normal RV size and function. RVSP 40 mmHg with RAP 3. Moderate AV stenosis, mean gradient 31 mmHg, vmax 3.7 to 3.8m/s. MELE 1 sq cm. Mild thicken MV leaflets. Mild MR, AI and TR. Compared to prior study of 06/24/24- increased velocities. EKG 04/14 shows sinus bradycardia with first-degree AV block, MO 234, QTc 439. Plan: - Unlikely cardiogenic shock as patient only has moderate aortic stenosis with adequate flow. Likely distributive shock secondary to severe hypothermia or possible sepsis with underlying left lower lobe pneumonia. Patient was bradycardic along with hypotensive on admission which improved with rewarming with a Laverne hugger. - Even if the patient has severe aortic stenosis it is unlikely the patient will be a candidate for TAVR given his multiple comorbidities along with her severe protein calorie malnutrition and will not have good outcome as she is unable to do any kind of rehab. Can consider TAVR for her eventually if her overall clinical status improves over the next few months - Heart rate improving with Laverne hugger. As above, EKG shows first-degree AV block however patient remains asymptomatic with no long pauses noted and is therefore not a candidate for pacemaker placement at this time. - Recommend starting losartan 25 mg daily as patient is now on NG tube if BP permits as part of GDMT. - Avoid beta blockers as patient is already bradycardic ? Stable off Levophed and dopamine. Monitor BP. 04/21/2025 Diuresed well over the last 24 hours with 20 mg IV Lasix 2600 mL urine output but intake was not accurately measured. Recommend strict input output Patient's BUN actually improved from 37 to 33 with the diuresis and creatinine is stable at 0.5 Potassium improved from 5.3-4.8. Magnesium slightly low at 1.8 Recommend to replace magnesium sulfate. Continue as needed Lasix 20 mg IV or oral or NG tube based on her weights and if patient continues to have leg swelling. Patient is still on NG tube feeds and primary team is discussing with the patient regarding PEG tube placement. GI team also following. Otherwise patient is hemodynamically stable and as noted previously patient needs to follow-up with cardiology and if her clinical status improves then we can plan for further workup for the patient otherwise at this point of time we will continue with medical treatment. Blood pressure is still soft and hold off on other medications at the present point of time and recommend to start with losartan 25 mg once daily when blood pressure is elevated. #Hypernatremia #Acute hypokalemia, resolved #Hypomagnesemia # Hypophosphatemia ##Hypocalcemia, resolved Presented with potassium of 2.4 and magnesium 1.1. Overnight given total potassium chloride 40 mEq, magnesium 2 g, calcium gluconate x1. 04/12/2025: Potassium improved to 4.7 at midnight. Calcium improved to 8.7, phosphorus 2.6, magnesium 2.3. ?Keep potassium above 4 and magnesium above 2 - Feeding via NG tube, adjust sodium content if any. #Acute on chronic normocytic anemia #Protein calorie malnutrition Patient presented with altered mental status and acute metabolic encephalopathy, unclear etiology. Appears to have poor oral intake as the patient was also noted to have severely low albumin at 1.5 as well as total protein at 2.5. Hemoglobin 7.6. In setting of acute gastritis and severe malnutrition. BMI 19.6. ? NG tube feeds as above - Workup per primary team #[id number]-xqpiyvflu type 2 diabetes #Hx of LT foot metatrasal amputation and RT foot 2nd digit amputation A1c 8.1. Home meds include metformin 1000 mg twice daily. ?SSI per primary team #Acute encephalopathy in setting of #Hypotonic hyponatremia, severe #Left base PNA, possibly aspiration #Right upper lobe pulmonary nodules #Bilateral pleural effusions, small #Pancytopenia #Proctitis, likely acute #Seizure disorder #Hyperlipidemia #Constipation Vs. bowel ileus #Tinea Capitis #Nasal lesion, possibly basal cell carcinoma #Axillary lymphadenopathy #Baseline dementia #History of questionable PAD with transmetatarsal amputation and right toe amputation #COPD Time Spent With Patient Time: Total time spent is greater than 50% in coordination of care (as documented) at patient's floor/unit and/or counseling patient:
[2025-04-26] VITALS (10 sets, daily range): BP systolic 101–150; BP diastolic 56–95; PULSE 39–59; RESP 14–99; TEMP 35–36.3; O2SAT 96–100
[2025-04-26] MEDS: DEXTROSE 50%-WATER INJ 50 ML SYRINGE IV (00:10)
[2025-04-26 05:46] LABS: Basophils # (Auto) 0.1 Thou/mm3 (0.0-0.2); Basophils % (Auto) 1 % (0-2.5); Eosinophils # (Auto) 1.8 Thou/mm3 (0.0-0.5); Eosinophils % (Auto) 26 % (0-10); Hematocrit 29.9 % (36.0-46.0); Hemoglobin 9.6 g/dL (12.0-16.0); Immature Granulocytes Auto 0.01 Thou/mm3 (0.00-0.00); Lymphocytes # (Auto) 1.0 Thou/mm3 (1.0-4.8); Lymphocytes % (Auto) 15 % (10-50); Mean Corpuscular HGB Conc 32.1 g/dl (31.0-37.0); Mean Corpuscular Hemoglobin 26.7 pg (25.0-35.0); Mean Corpuscular Volume 83 fL (80-100); Monocytes # (Auto) 0.3 Thou/mm3 (0.0-0.8); Monocytes % (Auto) 5 % (0-12); Neutrophils # (Auto) 3.8 Thou/mm3 (1.8-7.7); Neutrophils % (Auto) 54 % (37-80); Nucleated Red Blood Cell # 0.00 Thou/mm3 (0.00-0.00); Nucleated Red Blood Cell % 0 /100 WBC (0); Platelet Count 369 Thou/mm3 (140-440); RDW Standard Deviation 56.2 fL (36.4-46.3); Red Blood Count 3.59 Miln/mm3 (4.00-5.20); White Blood Count 7.1 Thou/mm3 (3.6-11.0)
[2025-04-26 06:18] LABS: Alanine Aminotransferase 21 U/L (10-49); Albumin, Serum 3.1 gm/dL (3.4-4.8); Albumin/Globulin Ratio 1.6 (1.2-2.2); Alkaline Phosphatase 114 U/L (46-116); Anion Gap 7 (7-16); Aspartate Amino Transferase 31 U/L (0-34); BUN/Creatinine Ratio 63 Ratio (12-20); Bilirubin,Total 0.2 mg/dL (0.3-1.2); Blood Urea Nitrogen 25 mg/dL (9-23); Calcium 8.1 mg/dL (8.3-10.6); Calcium (Corrected) 8.8 mg/dL (8.5-10.1); Carbon Dioxide 30.7 mMol/L (20.0-31.0); Chloride 106 mMol/L (98-107); Creatinine (Component) 0.4 mg/dL (0.6-1.3); Estimated Creatinine Clearance 120.8 mL/min (>60); Globulin 2.0 gm/dL (2.3-3.5); Glucose 128 mg/dL (74-106); Magnesium 2.4 mg/dL (1.6-2.6); Osmolality,Calculated 293 (275-295); Potassium 4.8 mMol/L (3.4-5.1); Sodium 144 mMol/L (136-145); Total Protein 5.1 gm/dL (5.7-8.2); eGFR > 60 See Note
[2025-04-26] MEDS: THIAMINE 100 MG TABLET NG (09:16)
[2025-04-26] MEDS: ENOXAPARIN SOD INJ 40 MG/0.4 ML SYRINGE SC (09:16)
[2025-04-26] MEDS: levETIRAcetam INJ 100 MG/ML VIAL 5ML 1000 MG IVP ×2 (09:16→20:13)
[2025-04-26] MEDS: MULTIVITAMIN 15 ML UDC NG (09:16)
[2025-04-26] MEDS: FOLIC ACID 1 MG TABLET NG (09:16)
[2025-04-26] MEDS: cefTRIAXone 2 GM in SODIUM CHLORIDE 0.9% (Popper) 50 ML IV (09:17)
[2025-04-26] MEDS: Hydrocortisone Cr 1% 30 GM TUBE TOP ×2 (09:17→20:30)
[2025-04-26] MEDS: INSULIN DEGLUDEC 5 UNIT/0.05 ML (PER 5 UNITS) 14 UNIT SC (09:17)
[2025-04-26] MEDS: MIN OIL/PET,WHITE (Eucerin) CR 16 OZ BTL TOP (09:18)
--- NOTE | 2025-04-26 10:00 | XR_ITS ---
EXAMINATION: Modified barium swallow Video esophagram 144 Spot soft tissue lateral neck films Fluoroscopy Date and time: April 26, 2025, 1325 hours INDICATIONS: Difficulty swallowing this week Technique and findings: Multiple barium mixtures administered including honey, pudding, nectar, thin barium Delayed swallowing Pooling in the vallecular region Flash penetration No definite aspiration IMPRESSION: Pharyngeal penetration, no definite aspiration Fluoroscopy 0.2-minute radiation dose 49.0 mGy 144 spot fluoroscopic films lateral soft tissue neck
[2025-04-26] MEDS: DOCUSATE SOD LIQD 100 MG/10 ML UDC NG (12:40)
[2025-04-26] MEDS: POLYETHYLENE GLYCOL 17 GM PACKET NG (12:40)
[2025-04-26] MEDS: INSULIN LISPRO (AdmeLOG) 1 UNIT/0.01 ML UNIT SC (13:00)
--- NOTE | 2025-04-26 13:12 | ESPR_ITS ---
Documentation for date of: 04/26/25 Subjective Subjective Interval history: Patient seen and assessed at bedside. No new complaints, denies any chest pain, shortness of breath, palpitations. Continues to be in sinus rhythm with prolonged IL on telemetry. Relatively normotensive, no need for antihypertensive at this time. Swelling of extremities much improved. Hold IV Lasix as BUN continues to be elevated, can administer as needed. Potassium 4.8, Mg 2.4. Per goals of care discussion, patient's son would like more time to consider PEG tube placement. Pending MBSS today per speech therapy. Exam Vital Signs Temp Pulse Resp BP Pulse Ox O2 Del Method O2 Flow Rate 96.9 F 49 L 15 139/69 H 96 Room Air 2 04/26/25 12:00 04/26/25 12:00 04/26/25 12:00 04/26/25 12:00 04/26/25 12:00 04/26/25 12:00 04/25/25 16:00 FiO2 62 04/25/25 16:00 Narrative Exam General: Awake and in no acute distress. Able to answer simple questions appropriately. Cachectic. HEENT: Normocephalic, atraumatic, mucous membranes dry. Missing upper and bottom teeth. NG tube in place. Heart: Regular rate and rhythm, normal S1 and S2, 4/5 systolic murmur radiating to carotids. Lungs: Mild coarse breath sounds in all lobes, much improved. Abdomen: Soft, nondistended, nontender, positive bowel sounds. No guarding or rebound tenderness. Neurologic: Alert and oriented x2. Strength 5/5 in bilateral upper extremities but R>L. Extremities: No edema. Left foot transmetatarsal amputation. Right foot second digit amputation. Skin: No rash or ecchymoses. Tinea capitis at frontal scalp. Petechial lesions bilateral lower extremities. Very dry skin. Objective Labs 04/26/25 05:27 04/26/25 05:27 Labs: Laboratory Results - last 24 hr 04/26/25 05:27 WBC 7.1 RBC 3.59 L Hgb 9.6 L Hct 29.9 L MCV 83 MCH 26.7 MCHC 32.1 RDW Std Deviation 56.2 H Plt Count 369 D Neut % (Auto) 54 Lymph % (Auto) 15 [place] % (Auto) 5 Eos % (Auto) 26 H Baso % (Auto) 1 Neut # (Auto) 3.8 Lymph # (Auto) 1.0 [place] # (Auto) 0.3 Eos # (Auto) 1.8 H Baso # (Auto) 0.1 Immature Gran # (Auto) 0.01 H Absolute Nucleated RBC 0.00 Immature Gran % 0 Nucleated RBC % 0 Sodium 144 Potassium 4.8 Chloride 106 Carbon Dioxide 30.7 Anion Gap 7 BUN 25 H Creatinine 0.4 L Estim Creat Clear Calc 120.8 eGFR > 60 BUN/Creatinine Ratio 63 H Glucose 128 H Calculated Osmolality 293 Calcium 8.1 L Corrected Calcium 8.8 Magnesium 2.4 Total Bilirubin 0.2 L AST 31 ALT 21 Alkaline Phosphatase 114 D Total Protein 5.1 L Albumin 3.1 L Globulin 2.0 L Albumin/Globulin Ratio 1.6 ABG Interpretation ABG results: 04/11/25 04/14/25 04/18/25 21:53 23:37 08:00 ABG pH 7.29 L 7.47 H ABG pCO2 53 H 30 L ABG pO2 90 61 L ABG HCO3 25 21 ABG O2 Saturation 97 94 ABG Base Excess -2 -2 VBG pH 7.36 VBG pCO2 31 L VBG pO2 108 H VBG Base Excess -7 L Quality Measures Quality Measures VTE prophylaxis Advance care planning discussed with:: child Assessment & Plan Assessment Current Active Medications: Generic Name Dose Route Start Last Admin Trade Name Freq PRN Reason Stop Dose Admin Dextrose 50 ml 04/12/25 00:08 04/26/25 00:10 Dextrose 50%-Water Inj 50 Ml Syringe IV 05/12/25 00:07 50 ml Q15MIN PRN Administration BG <50 OR BG <70 & pt unresponsive Enoxaparin Sodium 40 mg 04/12/25 21:00 04/26/25 09:16 Enoxaparin Sod Inj 40 Mg/0.4 Ml Syringe SC 04/26/25 20:59 40 mg QDAY HARPER Administration Folic Acid 1 mg 04/18/25 09:00 04/26/25 09:16 Folic Acid 1 Mg Tablet NG 05/18/25 08:59 1 mg QDAY HARPER Administration Glucagon 1 mg 04/12/25 00:08 Glucagon Inj 1 Mg Vial IM Q15MIN PRN BG <70, and no IV access Hydrocortisone 0 gm 04/19/25 11:30 04/26/25 09:17 Hydrocortisone Cr 1% 30 Gm Tube TOP 05/19/25 11:29 1 appln BID HARPER Administration Ceftriaxone Sodium 2 gm/ 50 mls @ 100 mls/hr 04/21/25 13:28 04/26/25 09:17 Sodium Chloride IV 04/28/25 13:27 100 mls/hr QDAY HARPER Administration Insulin Degludec 14 unit 04/23/25 09:00 04/26/25 09:17 Insulin Degludec 5 Unit/0.05 Ml (Per 5 Units) SC 05/23/25 08:59 14 unit QDAY HARPER Administration Insulin Human Lispro 0 unit 04/23/25 07:40 04/26/25 05:21 Insulin Lispro (Admelog) 1 Unit/0.01 Ml Unit SC 05/16/25 17:59 Not Given Q6HR HARPER Protocol Levetiracetam 1,000 mg 04/12/25 21:00 04/26/25 09:16 Levetiracetam Inj 100 Mg/Ml Vial 5ml IVP 05/12/25 20:59 1,000 mg Q12HR HARPER Administration Magnesium Hydroxide 30 ml 04/22/25 07:45 04/24/25 22:10 Milk Of Magnesia Susp 30 Ml Udc PO 05/22/25 07:44 30 ml QDAY PRN Administration CONSTIPATION Protocol Multi-Ingredient Ointment 0 oz 04/12/25 12:30 04/26/25 09:18 Min Oil/Pet,White (Eucerin) Cr 16 Oz Btl TOP 05/12/25 12:29 1 appln DAILY HARPER Administration Multivitamins/Minerals 15 ml 04/20/25 09:00 04/26/25 09:16 Multivitamin 15 Ml Udc NG 05/20/25 08:59 15 ml QDAY HARPER Administration Ondansetron HCl 4 mg 04/11/25 22:23 Ondansetron Inj 2 Mg/Ml Inj 2 Ml IVP 05/11/25 22:22 Q6H PRN NAUSEA OR VOMITING Protocol Pantoprazole Sodium 40 mg 04/12/25 10:30 04/26/25 09:16 Pantoprazole Inj 40 Mg Vial IVP 05/12/25 10:29 40 mg QDAY HARPER Administration Thiamine HCl 100 mg 04/18/25 09:00 04/26/25 09:16 Thiamine 100 Mg Tablet NG 05/18/25 08:59 100 mg QDAY HARPER Administration Plan Patient is a 69-year-old female with past medical history of CAD s/p CABG with history of previous multiple PCI, moderate aortic stenosis, CVA/stroke, seizure disorder with Keppra, essential hypertension, hyperlipidemia, baseline dementia, slurred speech, history of left transmetatarsal amputation with questionable PAD, history of fall with displaced intra-articular fracture of the left hip status post open reduction internal fixation in June 2024 was brought in to the emergency department of worsening altered mental status. Admitted to ICU for acute metabolic encephalopathy in setting of hypertonic hyponatremia and acute hypothermia. Cardiology consulted due to concern for cardiogenic shock given history of CAD and moderate aortic stenosis. #Distributive shock, likely septic or distributive, unlikely cardiogenic, resolved #Acute hypothermia, improving #Bradycardia secondary to first-degree heart block #History of aortic stenosis, moderate #History of hypertension #History CVA #History of CAD status post CABG with history of previous multiple PCI # HFpEF (EF 60 to 65%) with stage I diastolic dysfunction Home meds include lisinopril 10 mg daily, aspirin 81 mg daily, Plavix 75 mg daily. On physical exam, auscultated 4/5 ejection systolic murmur radiating to carotids. TSH were normal, A1c was 8.1% in lipid profile showed total cholesterol of 123, HDL of 48 and LDL of 53. Chest x-ray with questionable left-sided pneumonia secondary to aspiration. CT chest abdominal with altered showed small bilateral pleural effusions along with significant thickening of gastric mucosa and some constipation. TTE 06/23/2024 showed normal LV size and function. Mild LVH. Stage I diastolic dysfunction. Estimated EF 60-65%. Normal RV size and function. Moderate AV stenosis, mean gradient 21mmHg, vmax 3.1 m/s. Mild thicken MVL. Midl MR, AI. Trace TR. Bradycardia likely secondary to severe hypothermia. Heart rate now improved to 70s to 80s with conservative treatment of hypothermia. TTE 04/12/25 showed normal left ventricular size and function. Mild LVH. Stage I diastolic dysfunction. Estimated EF 60-65%. Normal RV size and function. RVSP 40 mmHg with RAP 3. Moderate AV stenosis, mean gradient 31 mmHg, vmax 3.7 to 3.8m/s. MELE 1 sq cm. Mild thicken MV leaflets. Mild MR, AI and TR. Compared to prior study of 06/24/24- increased velocities. EKG 04/14 shows sinus bradycardia with first-degree AV block, [place] 234, QTc 439. Plan: - Unlikely cardiogenic shock as patient only has moderate aortic stenosis with adequate flow. Likely distributive shock secondary to severe hypothermia or possible sepsis with underlying left lower lobe pneumonia. Patient was bradycardic along with hypotensive on admission which improved with rewarming with a Laverne hugger. - Even if the patient has severe aortic stenosis it is unlikely the patient will be a candidate for TAVR given his multiple comorbidities along with her severe protein calorie malnutrition and will not have good outcome as she is unable to do any kind of rehab. Can consider TAVR for her eventually if her overall clinical status improves over the next few months - Heart rate improving with Laverne hugger. As above, EKG shows first-degree AV block however patient remains asymptomatic with no long pauses noted and is therefore not a candidate for pacemaker placement at this time. - Recommend starting losartan 25 mg daily as patient is now on NG tube if BP permits as part of GDMT. - Avoid beta blockers as patient is already bradycardic ? Stable off Levophed and dopamine. Monitor BP. #Hypernatremia, resolved #Acute hypokalemia, resolved #Hypomagnesemia, resolved # Hypophosphatemia, resolved ##Hypocalcemia, resolved Presented with potassium of 2.4 and magnesium 1.1. Overnight given total potassium chloride 40 mEq, magnesium 2 g, calcium gluconate x1. 04/12/2025: Potassium improved to 4.7 at midnight. Calcium improved to 8.7, phosphorus 2.6, magnesium 2.3. ?Keep potassium above 4 and magnesium above 2 - Feeding via NG tube, adjust sodium content if any. #Acute on chronic normocytic anemia #Protein calorie malnutrition #Upper and lower extremity swelling Patient presented with altered mental status and acute metabolic encephalopathy, unclear etiology. Appears to have poor oral intake as the patient was also noted to have severely low albumin at 1.5 as well as total protein at 2.5. Hemoglobin 7.6. In setting of acute gastritis and severe malnutrition. BMI 19.6. 04/23/25: Swelling of hands and feet likely secondary to increased intake. - IV Lasix 20 or oral as needed for swelling - Strict I's and O's ? NG tube feeds as above. - Potential PEG tube placement per primary team, pending MBSS today - GI following - Workup per primary team #[id number] type 2 diabetes #Hx of LT foot metatrasal amputation and RT foot 2nd digit amputation A1c 8.1. Home meds include metformin 1000 mg twice daily. ?SSI per primary team #Acute encephalopathy in setting of #Hypotonic hyponatremia, severe #Left base PNA, possibly aspiration #Right upper lobe pulmonary nodules #Bilateral pleural effusions, small #Pancytopenia #Proctitis, likely acute #Seizure disorder #Hyperlipidemia #Constipation Vs. bowel ileus #Tinea Capitis #Nasal lesion, possibly basal cell carcinoma #Axillary lymphadenopathy #Baseline dementia #History of questionable PAD with transmetatarsal amputation and right toe amputation #COPD Thank you for your consultation, please do not hesitate to reach out if you have any question or concern Patient plan of care was discussed with the attending physician, Dr. Castellanos. Kenisha Marsh, PGY-1 Attending Provider Attestation/Addendum I have personally seen and examined the patient separately on the above date of service and discussed the plan of care with the resident. I reviewed the resident Dr. Kenisha Marsh consultation progress note and agree with the resident findings and plan in the note above and have also edited the documentation to reflect my findings and plan. Jose Castellanos M.D. Interventional Cardiology
--- NOTE | 2025-04-26 14:29 | ESPR_ITS ---
<Statement entered by Keaton Baltazar MD - 04/26/25 16:00> I have reviewed the note and agree with the resident's assessment & plan with exceptions as below. I have personally reviewed labs, imaging, home meds/prior records, examined the patient, formulated and discussed management plan with my attending Patient was seen and examined at bedside this morning. No acute overnight events. Patient was able to pass her video swallow today therefore was found to be safe to start p.o. intake. Will start patient on dysphagia diet and will titrate down on the tube feeds to 50% of rate until patient is able to adequately have good p.o. intake in the next couple days. Patient's son was at bedside this was explained to him. Expect possible discharge in the next 1 to 2 days. Keaton Baltazar PGY2 Disclaimer: Even though this this note was dictated by speech recognition and even though it was carefully revised there may still be minor errors in jury consultant due to voice recognition software. Documentation for date of: 04/26/25 Subjective Subjective Interval history: No acute overnight events. Patient seen and examined at bedside. Patient alert x [address] today[address] Continues to improve mentation and endorses some abdominal pain. States that she is hungry and thirsty. Bilateral wrist restraints still present. Labs and vitals reviewed. SBP [id number]. Telemetry reviewed showing heart rate 40s to low 50s. Temperature stable, no readings of hypothermia overnight. Hemoglobin stable 9.6, BUN stable 25. VFSS done today, reporting pharyngeal penetration noted for aspiration. Per HUC, dysphagia diet can be started and per dietitian, Glucerna feeds can be decreased to the rate of half of 30 mL an hour. Continue ceftriaxone until tomorrow to complete 14-day course for Staph aureus bacteremia. Continue Keppra and hydrocortisone. Son at bedside today, informed that patient was starting dysphagia diet and Glucerna feeds will be decreased he is in agreement. He reports he will bring POLST form tomorrow. Exam Vital Signs Temp Pulse Resp BP Pulse Ox O2 Del Method O2 Flow Rate 96.9 F 49 L 15 139/69 H 96 Room Air 2 04/26/25 12:00 04/26/25 12:00 04/26/25 12:00 04/26/25 12:00 04/26/25 12:00 04/26/25 12:00 04/25/25 16:00 FiO2 62 04/25/25 16:00 Narrative Exam GENERAL: no acute distress, speaking in short sentences, AOx2 to person and place HEENT: mucous membranes dry, bilateral sclera anicteric, crusted lips, seborrheic dermatitis CARDIOVASCULAR: regular rate and rhythm, 4/6 systolic ejection murmur PULMONARY: CTAB ABDOMINAL: soft, non-tender, non-distended, no rebound/guarding, bowel sounds present, mild suprapubic TTP EXTREMITIES: 2+ pitting edema bilateral thighs, L foot tarsal amputation, R foot 2nd digit amputation, LUE swelling SKIN: warm and dry, widespread improved rash, dermatitis much improved NEURO: CN II-XII grossly intact, able to follow instructions Objective Labs 04/26/25 05:27 04/26/25 05:27 Labs: Laboratory Results - last 24 hr 04/26/25 05:27 WBC 7.1 RBC 3.59 L Hgb 9.6 L Hct 29.9 L MCV 83 MCH 26.7 MCHC 32.1 RDW Std Deviation 56.2 H Plt Count 369 D Neut % (Auto) 54 Lymph % (Auto) 15 Evans % (Auto) 5 Eos % (Auto) 26 H Baso % (Auto) 1 Neut # (Auto) 3.8 Lymph # (Auto) 1.0 Evans # (Auto) 0.3 Eos # (Auto) 1.8 H Baso # (Auto) 0.1 Immature Gran # (Auto) 0.01 H Absolute Nucleated RBC 0.00 Immature Gran % 0 Nucleated RBC % 0 Sodium 144 Potassium 4.8 Chloride 106 Carbon Dioxide 30.7 Anion Gap 7 BUN 25 H Creatinine 0.4 L Estim Creat Clear Calc 120.8 eGFR > 60 BUN/Creatinine Ratio 63 H Glucose 128 H Calculated Osmolality 293 Calcium 8.1 L Corrected Calcium 8.8 Magnesium 2.4 Total Bilirubin 0.2 L AST 31 ALT 21 Alkaline Phosphatase 114 D Total Protein 5.1 L Albumin 3.1 L Globulin 2.0 L Albumin/Globulin Ratio 1.6 ABG Interpretation ABG results: 04/11/25 04/14/25 04/18/25 21:53 23:37 08:00 ABG pH 7.29 L 7.47 H ABG pCO2 53 H 30 L ABG pO2 90 61 L ABG HCO3 25 21 ABG O2 Saturation 97 94 ABG Base Excess -2 -2 VBG pH 7.36 VBG pCO2 31 L VBG pO2 108 H VBG Base Excess -7 L Quality Measures Quality Measures VTE prophylaxis Advance care planning discussed with:: child Assessment & Plan Assessment Current Active Medications: Generic Name Dose Route Start Last Admin Trade Name Freq PRN Reason Stop Dose Admin Dextrose 50 ml 04/12/25 00:08 04/26/25 00:10 Dextrose 50%-Water Inj 50 Ml Syringe IV 05/12/25 00:07 50 ml Q15MIN PRN Administration BG <50 OR BG <70 & pt unresponsive Enoxaparin Sodium 40 mg 04/12/25 21:00 04/26/25 09:16 Enoxaparin Sod Inj 40 Mg/0.4 Ml Syringe SC 04/26/25 20:59 40 mg QDAY HARPER Administration Folic Acid 1 mg 04/18/25 09:00 04/26/25 09:16 Folic Acid 1 Mg Tablet NG 05/18/25 08:59 1 mg QDAY HARPER Administration Glucagon 1 mg 04/12/25 00:08 Glucagon Inj 1 Mg Vial IM Q15MIN PRN BG <70, and no IV access Hydrocortisone 0 gm 04/19/25 11:30 04/26/25 09:17 Hydrocortisone Cr 1% 30 Gm Tube TOP 05/19/25 11:29 1 appln BID HARPER Administration Ceftriaxone Sodium 2 gm/ 50 mls @ 100 mls/hr 04/21/25 13:28 04/26/25 09:17 Sodium Chloride IV 04/28/25 13:27 100 mls/hr QDAY HARPER Administration Insulin Degludec 14 unit 04/23/25 09:00 04/26/25 09:17 Insulin Degludec 5 Unit/0.05 Ml (Per 5 Units) SC 05/23/25 08:59 14 unit QDAY HARPER Administration Insulin Human Lispro 0 unit 04/23/25 07:40 04/26/25 13:00 Insulin Lispro (Admelog) 1 Unit/0.01 Ml Unit SC 05/16/25 17:59 2 unit Q6HR HARPER Administration Protocol Levetiracetam 1,000 mg 04/12/25 21:00 04/26/25 09:16 Levetiracetam Inj 100 Mg/Ml Vial 5ml IVP 05/12/25 20:59 1,000 mg Q12HR HARPER Administration Magnesium Hydroxide 30 ml 04/22/25 07:45 04/24/25 22:10 Milk Of Magnesia Susp 30 Ml Udc PO 05/22/25 07:44 30 ml QDAY PRN Administration CONSTIPATION Protocol Multi-Ingredient Ointment 0 oz 04/12/25 12:30 04/26/25 09:18 Min Oil/Pet,White (Eucerin) Cr 16 Oz Btl TOP 05/12/25 12:29 1 appln DAILY HARPER Administration Multivitamins/Minerals 15 ml 04/20/25 09:00 04/26/25 09:16 Multivitamin 15 Ml Udc NG 05/20/25 08:59 15 ml QDAY HARPER Administration Ondansetron HCl 4 mg 04/11/25 22:23 Ondansetron Inj 2 Mg/Ml Inj 2 Ml IVP 05/11/25 22:22 Q6H PRN NAUSEA OR VOMITING Protocol Pantoprazole Sodium 40 mg 04/12/25 10:30 04/26/25 09:16 Pantoprazole Inj 40 Mg Vial IVP 05/12/25 10:29 40 mg QDAY HARPER Administration Thiamine HCl 100 mg 04/18/25 09:00 04/26/25 09:16 Thiamine 100 Mg Tablet NG 05/18/25 08:59 100 mg QDAY HARPER Administration Plan Jill Holden 69F pmhx significant for primary hypertension, NIDDM2, CAD s/p CABG, hx of CVA, seizure disorder, age-related dementia, left diabetic foot metatarsal amputation, right foot second digit amputation and COPD, who presented to [facility] ED on 04/11 for acute encephalopathy, initially admitted to ICU for distributive shock from unknown source requiring pressor support and downgraded to floors on 04/13. #Staphylococcus aureus bacteremia #Acute infectious encephalopathy #Dysphagia #L Base PNA, likely aspiration with gram-negative versus anaerobic bacteria #Hypothermia, resolved #Distributive shock, resolved Patient presented obtunded with AMS, BP 79/48 MAP 51-52, HR 46, temp 84.7, WBC 2.2. Directly admitted to ICU requiring dopamine and Levophed pressors. Eventually weaned off and downgraded 04/13. Per ICU, mentation has improved since admission following broad spectrum abx and fluid resuscitation. UA unremarkable, lactic acid 0.9 on admission. Lipase 115. Ammonia 37. CRP neg, ESR 55. BCx 1/2 bottles growing GPC. Repeat BCx NGTD. sputum Cx NGTD. CT Head no acute processes. CTAP showed L base PNA, consider aspiration PNA, R upper lobe pulmonary nodules, multiple subcentimeter axillary lymph nodes, small b/l pleural effusions, significant thickening of gastric mucosa, abundant stool in rectosigmoid but no bowel obstruction, rectal wall thickening, consider proctitis, severe osteopenia Ddx: likely septic from L PNA, possible proctitis, gastritis, vs osteomyelitis as patient improved with fluids and abx. Less likely cardiogenic as patient condition has improved off pressors without continued ionotropic support. 04/15 repeat CXR no improvement in diffuse significant L lung PNA RUE swelling noted following PPN initiation, and RUE US negative for DVT. PPN (04/15-04/18) Vancomycin (04/11-04/21), metronidazole (04/11, 04/14 -04/21), cefepime (04/14- 04/21) 04/26 VFSS: pnaryngeal penetration, no definite aspiration Plan: - Continue ceftriaxone (04/13-04/14, 04/21-04/27) - Chest physiotherapy on board - NG tube feeding (04/17- - HUC recommend: dysphagia diet - [place] Placer: decreased glucerna feeds to 30 mL #Severe thrombocytopenia, resolved #Anemia of chronic disease, stable On admission Hgb platelets 34, on 04/15/2025, count was 29. Peripheral smear shows normocytic normochronic anemia with normal serium iron and TIBC, consistent with anemia of chronic disease, severe thrombocytopenia, and mild neutropenia. Vitals remains stable at this time. 04/15 liver ultrasound shows normal gallbladder, normal blood, bile duct, mild hepatomegaly, partial visualization of right pleural fluid. B12 1400, folate wnl, HIV and hep neg, retic count 0.8, LDH 277. Likely 2/2 infection Plan: - Trend CBC #R upper lobe pulmonary nodules #Multiple subcentimeter axillary lymph nodes #Rectal wall thickening Findings CTAP as above. No history of cancer per chart review however son states has hx of abdominal mass. Plan: - Abx as above - Recommend to follow up outpatient for further management - Discussed with gastroenterology regarding rectal wall thickening found on imaging, likely secondary to distention, appreciate recommendations #Bradycardia 2/2 first degree AV block -improved #Moderate aortic stenosis #Essential HTN Patient presented with HR 46 on admission. Resolved following resolution of hypothermia, fluid resuscitation and abx. TSH wnl 2.73, 04/12 TTE: Normal left ventricular size and function. Mild LVH. Stage I diastolic dysfunction. Estimated EF 60-65%. Normal RV size and function. RVSP 40 mmHg with RAP 3. Moderate AV stenosis, mean gradient 31 mmHg, vmax 3.7 to 3.8m/s. MELE 1 sq cm. Mild thickened MV leaflets. Mild MR, AI and TR. Compared to prior study of 06/24/24- increased velocities. Likely 2/2 infectious etiology vs heart block. Plan: - Cardiology consulted, recs appreciated: likely 2/2 hypothermia, unlikely good candidate for TAVR for or pacemaker for first degree AV block due to patient being asymptomatic at this time - Telemetry for cardiac monitoring - Keep K>4 and Mg>2 at all times #Electrolyte abnormalities #Hypernatremia #Hypokalemia, resolved #Hyperchloremia #Hypobicarbinemia, improving #Hypophosphatemia, resolved #Hypomagnesemia, resolved #Hypocalcemia, resolved On admission, Na 155, K 2.4, Cl 129, bicarb 18.5, glucose 65, Ca 7.0, phos 2.3, Mg 1.1. s/p D5W in ICU Plan: - Recheck and replete as necessary #NIDDM2 #Hx of L diabetic foot tarsal amputation #Hx of osteomyelitis of R foot distal fourth metatarsal and proximal phalanx fourth digit #Hx of R big toe abscess s/p I&D of R big toe and 2nd toe amputation (12/04/24) Admission A1c 8.1. Per med rec takes metformin 1g BID. Possible osteomyelitis as source of distributive shock. Plan: - Degludac 14u - SSI step [address] #Hx of seizures Per history. On home Keppra 1g BID. Unknown when last seizure occurred. Plan: - Continue home Keppra 1g BID - Consider ordering EEG and/or consulting neurology if encephalopathy worsens #Diffuse excoriations, improved #Xeroderma vs atopic dermatitis vs ezcema In ICU initially some concern for scabies, and per son, patient received permethrin and developed skin lesions. Diffuse crusted rash over forehead. Patient continues to scratch however likely 2/2 allergy to permethrin. Per son, patient's skin has been very dry and leathery since returning from rehab. Despite moisturizers, skin remains very dry. Plan: - Hydrocortisone 1% topical - Wound care consulted, recs appreciated Hospital management: Lines: PIV Diet: NG Glucerna feeds Bowel: None GI prophylaxis: IV pantoprazole 40 mg QD DVT prophylaxis: SCDs Disposition: tele for IV abx CODE STATUS: FULL CODE This case was discussed with my attending physician, Dr. Angeles, and PGY-2 Dr. Gunn. Linda Marsh, DO Internal Medicine PGY-1 Attending Provider Attestation/Addendum I have seen and examined the patient. I was physically present for the montez portions of the services provided including history, physical exam, diagnosis, treatment plans and orders. I agree with assessment and plan of care as documented by residents. Patient seen and examined at bedside this morning. No acute overnight events. Patient has been more alert this morning, oriented x 2. Has been requesting for food as per patient's RN. Underwent VFSS, and passed swallow evaluation has been started on dysphagia 1 pur?ed diet along with NG tube feeding as recommended by registered dietitian, speech therapy. We will hold off on PEG tube placement, slowly advance her diet. Vital signs are stable except for bradycardia, blood pressure remains stable, cardiology following closely, we will monitor closely. Lab results show stable hemoglobin, chemistry panel is remained stable as well. Patient will complete her antibiotics course for MSSA bacteremia tomorrow. Continues to be on insulin regimen for diabetes, blood glucose levels have been stable. Continues to be on Keppra for seizure disorder. Continues to be on hydrocortisone cream for diffuse skin lesions, appears stable. Even though this this note was carefully revised there may still be minor errors in jury consultant due to voice recognition software. Jake Angeles MD
--- NOTE | 2025-04-26 15:17 | PC.SS ---
TRANSPORTATION MUSEUM HELPER informed by resident that patient passed swallow evaluation. Patient will not require PEG tube placement. Confirmed with patient's son plan to d/c patient home with home health.
--- NOTE | 2025-04-26 20:01 | EKG_ITS ---
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
--- NOTE | 2025-04-26 20:02 | PD.RESEVENT ---
Documentation for date of: 04/26/25 Event Note Event Note: Room: [facility] Time: 16 00 Reason for Call: Patient unresponsive Patient presentation: 69 y/o female with significant for hypertension, DM2, CAD s/p CABG, hx of CVA, seizure disorder, age-related dementia, left diabetic foot metatarsal amputation, right foot second digit amputation and COPD, who presented on 04/11 for acute encephalopathy, initially admitted to ICU for distributive shock from unknown source requiring pressor support and downgraded to floors on 04/13. Patient was seen at the bedside was told by nursing staff that patient was unresponsive, responded to sternal rub during my examination and noted to be bradycardic in the mid 30s. Events: Patient responded and woke up after sternal rub, noted to be bradycardic in the low 30s. EKG was ordered noted to have QT/QTc in 603/530s, will follow up rest of labs as they result New orders: CBC, CMP, EKG, ABG, Lactic, troponins, 2g of Mag ordered Case discussed with my attending Dr. Dung Pinedo MD PGY-2
[2025-04-26] MEDS: Magnesium Sulfate 2 GM Ivpb 2 GM/50 ML BAG IV (20:13)
[2025-04-26 20:16] LABS: Lactate (Lactic Acid) 1.0 mMol/L (0.4-2.0)
[2025-04-26 20:20] LABS: Base Excess 7 (-3-3); HCO3 33 mEq/L (20-26); Inspired Oxygen, FIO2 21 %; O2 Saturation 88 % (91-98); PCO2 55 mmHg (32.0-48.0); pH, Arterial 7.39 (7.35-7.45)
[2025-04-26 20:23] LABS: Allen Test Not Performed; PO2 55 mmHg (83-108); Puncture Site Arterial Line
[2025-04-26 20:29] LABS: Basophils # (Auto) 0.1 Thou/mm3 (0.0-0.2); Basophils % (Auto) 1 % (0-2.5); Eosinophils # (Auto) 1.3 Thou/mm3 (0.0-0.5); Eosinophils % (Auto) 24 % (0-10); Hematocrit 29.4 % (36.0-46.0); Hemoglobin 9.6 g/dL (12.0-16.0); Immature Granulocytes Auto 0.01 Thou/mm3 (0.00-0.00); Lymphocytes # (Auto) 0.8 Thou/mm3 (1.0-4.8); Lymphocytes % (Auto) 15 % (10-50); Mean Corpuscular HGB Conc 32.7 g/dl (31.0-37.0); Mean Corpuscular Hemoglobin 27.0 pg (25.0-35.0); Mean Corpuscular Volume 83 fL (80-100); Monocytes # (Auto) 0.3 Thou/mm3 (0.0-0.8); Monocytes % (Auto) 6 % (0-12); Neutrophils # (Auto) 2.8 Thou/mm3 (1.8-7.7); Neutrophils % (Auto) 54 % (37-80); Nucleated Red Blood Cell # 0.00 Thou/mm3 (0.00-0.00); Nucleated Red Blood Cell % 0 /100 WBC (0); Platelet Count 307 Thou/mm3 (140-440); RDW Standard Deviation 57.0 fL (36.4-46.3); Red Blood Count 3.56 Miln/mm3 (4.00-5.20); White Blood Count 5.2 Thou/mm3 (3.6-11.0)
[2025-04-26 20:43] LABS: Alanine Aminotransferase 30 U/L (10-49); Albumin, Serum 3.0 gm/dL (3.4-4.8); Albumin/Globulin Ratio 1.3 (1.2-2.2); Alkaline Phosphatase 127 U/L (46-116); Anion Gap 6 (7-16); Aspartate Amino Transferase 48 U/L (0-34); BUN/Creatinine Ratio 63 Ratio (12-20); Bilirubin,Total < 0.2 mg/dL (0.3-1.2); Blood Urea Nitrogen 25 mg/dL (9-23); Calcium 8.3 mg/dL (8.3-10.6); Calcium (Corrected) 9.1 mg/dL (8.5-10.1); Carbon Dioxide 31.4 mMol/L (20.0-31.0); Chloride 106 mMol/L (98-107); Creatinine (Component) 0.4 mg/dL (0.6-1.3); Estimated Creatinine Clearance 120.8 mL/min (>60); Globulin 2.3 gm/dL (2.3-3.5); Glucose 138 mg/dL (74-106); Osmolality,Calculated 291 (275-295); Potassium 4.6 mMol/L (3.4-5.1); Sodium 143 mMol/L (136-145); Total Protein 5.3 gm/dL (5.7-8.2); Troponin I < 0.020 ng/mL (0.0-0.045); eGFR > 60 See Note
--- NOTE | 2025-04-26 21:22 | PD.IMPROG ---
Documentation for date of: 04/26/25 Subjective Subjective Interval history: Somewhat more alert Was started on feedings on the decrease and patient advance to dysphagia diet Exam Vital Signs Temp Pulse Resp BP Pulse Ox O2 Del Method O2 Flow Rate 95.0 F L 39 L 16 131/92 H 100 Room Air 2 04/26/25 20:00 04/26/25 20:00 04/26/25 20:18 04/26/25 20:00 04/26/25 20:00 04/26/25 20:00 04/26/25 20:18 FiO2 62 04/25/25 16:00 Objective Labs 04/26/25 20:06 04/26/25 20:06 Labs: Laboratory Results - last 24 hr 04/26/25 04/26/25 04/26/25 05:27 20:06 20:13 WBC 7.1 5.2 RBC 3.59 L 3.56 L Hgb 9.6 L 9.6 L Hct 29.9 L 29.4 L MCV 83 83 MCH 26.7 27.0 MCHC 32.1 32.7 RDW Std Deviation 56.2 H 57.0 H Plt Count 369 D 307 D Neut % (Auto) 54 54 Lymph % (Auto) 15 15 [place] % (Auto) 5 6 Eos % (Auto) 26 H 24 H Baso % (Auto) 1 1 Neut # (Auto) 3.8 2.8 Lymph # (Auto) 1.0 0.8 L [place] # (Auto) 0.3 0.3 Eos # (Auto) 1.8 H 1.3 H Baso # (Auto) 0.1 0.1 Immature Gran # (Auto) 0.01 H 0.01 H Absolute Nucleated RBC 0.00 0.00 Immature Gran % 0 0 Nucleated RBC % 0 0 Puncture Site Arterial Line ABG pH 7.39 ABG pCO2 55 H ABG pO2 55 L* ABG HCO3 33 H ABG O2 Saturation 88 L ABG Base Excess 7 H FiO2 21 Sodium 144 143 Potassium 4.8 4.6 Chloride 106 106 Carbon Dioxide 30.7 31.4 H Anion Gap 7 6 L BUN 25 H 25 H Creatinine 0.4 L 0.4 L Estim Creat Clear Calc 120.8 120.8 eGFR > 60 > 60 BUN/Creatinine Ratio 63 H 63 H Glucose 128 H 138 H Calculated Osmolality 293 291 Lactic Acid 1.0 Calcium 8.1 L 8.3 Corrected Calcium 8.8 9.1 Magnesium 2.4 Total Bilirubin 0.2 L < 0.2 L AST 31 48 H ALT 21 30 Alkaline Phosphatase 114 D 127 H Troponin I < 0.020 Total Protein 5.1 L 5.3 L Albumin 3.1 L 3.0 L Globulin 2.0 L 2.3 Albumin/Globulin Ratio 1.6 1.3 Impressions Impression: Dysphagia Failure to thrive Still on the NGT feeding at 30 cc an hour Advance diet as tolerated ABG Interpretation ABG results: 04/11/25 04/14/25 04/18/25 21:53 23:37 08:00 ABG pH 7.29 L 7.47 H ABG pCO2 53 H 30 L ABG pO2 90 61 L ABG HCO3 25 21 ABG O2 Saturation 97 94 ABG Base Excess -2 -2 VBG pH 7.36 VBG pCO2 31 L VBG pO2 108 H VBG Base Excess -7 L 04/26/25 20:13 ABG pH 7.39 ABG pCO2 55 H ABG pO2 55 L* ABG HCO3 33 H ABG O2 Saturation 88 L ABG Base Excess 7 H VBG pH VBG pCO2 VBG pO2 VBG Base Excess Assessment & Plan A&P Narrative Patient is a 69-year-old female with past medical history of CAD s/p CABG with history of previous multiple PCI, moderate aortic stenosis, CVA/stroke, seizure disorder with Keppra, essential hypertension, hyperlipidemia, baseline dementia, slurred speech, history of left transmetatarsal amputation with questionable PAD, history of fall with displaced intra-articular fracture of the left hip status post open reduction internal fixation in June 2024 was brought in to the emergency department of worsening altered mental status. Admitted to ICU for acute metabolic encephalopathy in setting of hypertonic hyponatremia and acute hypothermia. Cardiology consulted due to concern for cardiogenic shock given history of CAD and moderate aortic stenosis. #Distributive shock, likely septic or distributive, unlikely cardiogenic, resolved #Acute hypothermia, improving #Bradycardia secondary to first-degree heart block #History of aortic stenosis, moderate #History of hypertension #History CVA #History of CAD status post CABG with history of previous multiple PCI # HFpEF (EF 60 to 65%) with stage I diastolic dysfunction Home meds include lisinopril 10 mg daily, aspirin 81 mg daily, Plavix 75 mg daily. On physical exam, auscultated 4/5 ejection systolic murmur radiating to carotids. TSH were normal, A1c was 8.1% in lipid profile showed total cholesterol of 123, HDL of 48 and LDL of 53. Chest x-ray with questionable left-sided pneumonia secondary to aspiration. CT chest abdominal with altered showed small bilateral pleural effusions along with significant thickening of gastric mucosa and some constipation. TTE 06/23/2024 showed normal LV size and function. Mild LVH. Stage I diastolic dysfunction. Estimated EF 60-65%. Normal RV size and function. Moderate AV stenosis, mean gradient 21mmHg, vmax 3.1 m/s. Mild thicken MVL. Midl MR, AI. Trace TR. Bradycardia likely secondary to severe hypothermia. Heart rate now improved to 70s to 80s with conservative treatment of hypothermia. TTE 04/12/25 showed normal left ventricular size and function. Mild LVH. Stage I diastolic dysfunction. Estimated EF 60-65%. Normal RV size and function. RVSP 40 mmHg with RAP 3. Moderate AV stenosis, mean gradient 31 mmHg, vmax 3.7 to 3.8m/s. MELE 1 sq cm. Mild thicken MV leaflets. Mild MR, AI and TR. Compared to prior study of 06/24/24- increased velocities. EKG 04/14 shows sinus bradycardia with first-degree AV block, IL 234, QTc 439. Plan: - Unlikely cardiogenic shock as patient only has moderate aortic stenosis with adequate flow. Likely distributive shock secondary to severe hypothermia or possible sepsis with underlying left lower lobe pneumonia. Patient was bradycardic along with hypotensive on admission which improved with rewarming with a Laverne hugger. - Even if the patient has severe aortic stenosis it is unlikely the patient will be a candidate for TAVR given his multiple comorbidities along with her severe protein calorie malnutrition and will not have good outcome as she is unable to do any kind of rehab. Can consider TAVR for her eventually if her overall clinical status improves over the next few months - Heart rate improving with Laverne hugger. As above, EKG shows first-degree AV block however patient remains asymptomatic with no long pauses noted and is therefore not a candidate for pacemaker placement at this time. - Recommend starting losartan 25 mg daily as patient is now on NG tube if BP permits as part of GDMT. - Avoid beta blockers as patient is already bradycardic ? Stable off Levophed and dopamine. Monitor BP. 04/21/2025 Diuresed well over the last 24 hours with 20 mg IV Lasix 2600 mL urine output but intake was not accurately measured. Recommend strict input output Patient's BUN actually improved from 37 to 33 with the diuresis and creatinine is stable at 0.5 Potassium improved from 5.3-4.8. Magnesium slightly low at 1.8 Recommend to replace magnesium sulfate. Continue as needed Lasix 20 mg IV or oral or NG tube based on her weights and if patient continues to have leg swelling. Patient is still on NG tube feeds and primary team is discussing with the patient regarding PEG tube placement. GI team also following. Otherwise patient is hemodynamically stable and as noted previously patient needs to follow-up with cardiology and if her clinical status improves then we can plan for further workup for the patient otherwise at this point of time we will continue with medical treatment. Blood pressure is still soft and hold off on other medications at the present point of time and recommend to start with losartan 25 mg once daily when blood pressure is elevated. #Hypernatremia #Acute hypokalemia, resolved #Hypomagnesemia # Hypophosphatemia ##Hypocalcemia, resolved Presented with potassium of 2.4 and magnesium 1.1. Overnight given total potassium chloride 40 mEq, magnesium 2 g, calcium gluconate x1. 04/12/2025: Potassium improved to 4.7 at midnight. Calcium improved to 8.7, phosphorus 2.6, magnesium 2.3. ?Keep potassium above 4 and magnesium above 2 - Feeding via NG tube, adjust sodium content if any. #Acute on chronic normocytic anemia #Protein calorie malnutrition Patient presented with altered mental status and acute metabolic encephalopathy, unclear etiology. Appears to have poor oral intake as the patient was also noted to have severely low albumin at 1.5 as well as total protein at 2.5. Hemoglobin 7.6. In setting of acute gastritis and severe malnutrition. BMI 19.6. ? 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 Home meds include metformin 1000 mg twice daily. ?SSI per primary team #Acute encephalopathy in setting of #Hypotonic hyponatremia, severe #Left base PNA, possibly aspiration #Right upper lobe pulmonary nodules #Bilateral pleural effusions, small #Pancytopenia #Proctitis, likely acute #Seizure disorder #Hyperlipidemia #Constipation Vs. bowel ileus #Tinea Capitis #Nasal lesion, possibly basal cell carcinoma #Axillary lymphadenopathy #Baseline dementia #History of questionable PAD with transmetatarsal amputation and right toe amputation #COPD Time Spent With Patient Time: Total time spent is greater than 50% in coordination of care (as documented) at patient's floor/unit and/or counseling patient:
[2025-04-26 23:25] LABS: Base Excess 7 (-3-3); HCO3 33 mEq/L (20-26); Inspired Oxygen, FIO2 24 %; O2 Saturation 99 % (91-98); PCO2 52 mmHg (32.0-48.0); PO2 117 mmHg (83-108); pH, Arterial 7.41 (7.35-7.45)
[2025-04-26 23:30] LABS: Allen Test Performed/OK; Puncture Site Right Radial
[2025-04-27] VITALS (8 sets, daily range): BP systolic 103–148; BP diastolic 65–98; PULSE 55–81; RESP 13–98; TEMP 32.8–36.5; O2SAT 96–100; BMI 22.6
[2025-04-27 06:10] LABS: Basophils # (Auto) 0.1 Thou/mm3 (0.0-0.2); Basophils % (Auto) 1 % (0-2.5); Eosinophils # (Auto) 1.3 Thou/mm3 (0.0-0.5); Eosinophils % (Auto) 21 % (0-10); Hematocrit 29.0 % (36.0-46.0); Hemoglobin 9.3 g/dL (12.0-16.0); Immature Granulocytes Auto 0.01 Thou/mm3 (0.00-0.00); Lymphocytes # (Auto) 0.6 Thou/mm3 (1.0-4.8); Lymphocytes % (Auto) 9 % (10-50); Mean Corpuscular HGB Conc 32.1 g/dl (31.0-37.0); Mean Corpuscular Hemoglobin 26.5 pg (25.0-35.0); Mean Corpuscular Volume 83 fL (80-100); Monocytes # (Auto) 0.3 Thou/mm3 (0.0-0.8); Monocytes % (Auto) 4 % (0-12); Neutrophils # (Auto) 4.2 Thou/mm3 (1.8-7.7); Neutrophils % (Auto) 65 % (37-80); Nucleated Red Blood Cell # 0.00 Thou/mm3 (0.00-0.00); Nucleated Red Blood Cell % 0 /100 WBC (0); Platelet Count 338 Thou/mm3 (140-440); RDW Standard Deviation 55.6 fL (36.4-46.3); Red Blood Count 3.51 Miln/mm3 (4.00-5.20); White Blood Count 6.5 Thou/mm3 (3.6-11.0)
[2025-04-27 06:44] LABS: Alanine Aminotransferase 34 U/L (10-49); Albumin, Serum 3.0 gm/dL (3.4-4.8); Albumin/Globulin Ratio 1.5 (1.2-2.2); Alkaline Phosphatase 127 U/L (46-116); Anion Gap 7 (7-16); Aspartate Amino Transferase 55 U/L (0-34); BUN/Creatinine Ratio 63 Ratio (12-20); Bilirubin,Total 0.2 mg/dL (0.3-1.2); Blood Urea Nitrogen 25 mg/dL (9-23); Calcium 8.1 mg/dL (8.3-10.6); Calcium (Corrected) 8.9 mg/dL (8.5-10.1); Carbon Dioxide 31.8 mMol/L (20.0-31.0); Chloride 105 mMol/L (98-107); Creatinine (Component) 0.4 mg/dL (0.6-1.3); Estimated Creatinine Clearance 120.8 mL/min (>60); Globulin 2.0 gm/dL (2.3-3.5); Glucose 139 mg/dL (74-106); Magnesium 2.7 mg/dL (1.6-2.6); Osmolality,Calculated 293 (275-295); Potassium 5.1 mMol/L (3.4-5.1); Sodium 144 mMol/L (136-145); Total Protein 5.0 gm/dL (5.7-8.2); eGFR > 60 See Note
--- NOTE | 2025-04-27 08:07 | EKG_ITS ---
[facility] Test Date: 2025-04-27 Pat Name: JENARO ANTONY [facility] Gender: Female Vulcanizer: NEYDA : 1955 Requested By: Linda Marsh Order Number: [id number] Reading MD: Linda Marsh Measurements Intervals [place] Rate: 65 P: -59 [place]: 185 QRS: 51 QRSD: 103 T: 35 QT: 431 QTc: 450 Interpretive Statements SINUS RHYTHM SEPTAL MYOCARDIAL INFARCTION , OF INDETERMINATE AGE Compared to ECG 04/26/2025 20:02:58 Myocardial infarct finding now present Sinus bradycardia no longer present First degree AV block no longer present Intraventricular conduction delay no longer present Prolonged QT interval no longer present /store/S0/[id number].pdf
[2025-04-27] MEDS: levETIRAcetam INJ 100 MG/ML VIAL 5ML 1000 MG IVP ×2 (09:18→22:12)
[2025-04-27] MEDS: Hydrocortisone Cr 1% 30 GM TUBE TOP ×2 (09:19→22:12)
[2025-04-27] MEDS: FOLIC ACID 1 MG TABLET NG (09:19)
[2025-04-27] MEDS: INSULIN DEGLUDEC 5 UNIT/0.05 ML (PER 5 UNITS) 10 UNIT SC (09:19)
[2025-04-27] MEDS: MIN OIL/PET,WHITE (Eucerin) CR 16 OZ BTL TOP (09:19)
[2025-04-27] MEDS: MULTIVITAMIN 15 ML UDC NG (09:19)
[2025-04-27] MEDS: THIAMINE 100 MG TABLET NG (09:20)
--- NOTE | 2025-04-27 11:14 | PD.RESPRO ---
Documentation for date of: 04/27/25 Subjective Subjective Interval history: Patient had rapid response overnight around 8 PM for unresponsiveness. EKG at the time showed sinus rhythm, heart rate 40 with QTc of 490 and AL of 240. Temperature at the time was 95 ?F. Potassium was 4.6, magnesium 2.4, repleted with 2 g of magnesium. Trops were negative. Patient was assessed at bedside. No new complaints, denies any chest pain, shortness of breath, palpitations. Patient is still confused but answering questions appropriately. Denies any events last night. Repeat EKG shows normal QTc but continues to have prolonged AL interval. Recommend to avoid medications that can prolong QTc. Patient did have bradycardia with heart rate up to 40 bpm overnight but there was no evidence of any secondary or third-degree AV block or any significant pauses. Patient appeared to be in sinus bradycardia. And QTc was prolonged at 495 bpm but QTcB was in the normal range. Patient was sleeping at that point of time and bradycardia as expected. Reviewed the telemetry again this morning and most of the time the patient's heart rate is between 50 to 70 bpm and there is no evidence of any and bradycardia. Patient does have intact chronotropic response. No clear indications for any permanent pacemaker placement at this present point of time. Exam Vital Signs Temp Pulse Resp BP Pulse Ox O2 Del Method O2 Flow Rate 96.7 F L 64 18 113/71 100 Nasal Cannula 1 04/27/25 08:00 04/27/25 08:00 04/27/25 08:00 04/27/25 08:00 04/27/25 08:00 04/27/25 08:00 04/27/25 08:00 FiO2 62 04/25/25 16:00 Narrative Exam General: Awake and in no acute distress. Able to answer simple questions appropriately. Cachectic. HEENT: Normocephalic, atraumatic, mucous membranes dry. Missing upper and bottom teeth. NG tube in place. Heart: Regular rate and rhythm, normal S1 and S2, 4/5 systolic murmur radiating to carotids. Lungs: Mild coarse breath sounds in all lobes, much improved. Abdomen: Soft, nondistended, nontender, positive bowel sounds. No guarding or rebound tenderness. Neurologic: Alert and oriented x2. Strength 5/5 in bilateral upper extremities but R>L. Extremities: No edema. Left foot transmetatarsal amputation. Right foot second digit amputation. Skin: No rash or ecchymoses. Tinea capitis at frontal scalp. Petechial lesions bilateral lower extremities. Very dry skin. Objective Labs 04/27/25 05:40 04/27/25 20:09 Labs: Laboratory Results - last 24 hr 04/26/25 04/26/25 04/26/25 20:06 20:13 23:17 WBC 5.2 RBC 3.56 L Hgb 9.6 L Hct 29.4 L MCV 83 MCH 27.0 MCHC 32.7 RDW Std Deviation 57.0 H Plt Count 307 D Neut % (Auto) 54 Lymph % (Auto) 15 [place] % (Auto) 6 Eos % (Auto) 24 H Baso % (Auto) 1 Neut # (Auto) 2.8 Lymph # (Auto) 0.8 L [place] # (Auto) 0.3 Eos # (Auto) 1.3 H Baso # (Auto) 0.1 Immature Gran # (Auto) 0.01 H Absolute Nucleated RBC 0.00 Immature Gran % 0 Nucleated RBC % 0 Puncture Site Arterial Line Right Radial ABG pH 7.39 7.41 ABG pCO2 55 H 52 H ABG pO2 55 L* 117 H D ABG HCO3 33 H 33 H ABG O2 Saturation 88 L 99 H ABG Base Excess 7 H 7 H FiO2 21 24 Sodium 143 Potassium 4.6 Chloride 106 Carbon Dioxide 31.4 H Anion Gap 6 L BUN 25 H Creatinine 0.4 L Estim Creat Clear Calc 120.8 eGFR > 60 BUN/Creatinine Ratio 63 H Glucose 138 H Calculated Osmolality 291 Lactic Acid 1.0 Calcium 8.3 Corrected Calcium 9.1 Magnesium Total Bilirubin < 0.2 L AST 48 H ALT 30 Alkaline Phosphatase 127 H Troponin I < 0.020 Total Protein 5.3 L Albumin 3.0 L Globulin 2.3 Albumin/Globulin Ratio 1.3 04/27/25 05:40 WBC 6.5 RBC 3.51 L Hgb 9.3 L Hct 29.0 L MCV 83 MCH 26.5 MCHC 32.1 RDW Std Deviation 55.6 H Plt Count 338 D Neut % (Auto) 65 Lymph % (Auto) 9 L [place] % (Auto) 4 Eos % (Auto) 21 H Baso % (Auto) 1 Neut # (Auto) 4.2 Lymph # (Auto) 0.6 L [place] # (Auto) 0.3 Eos # (Auto) 1.3 H Baso # (Auto) 0.1 Immature Gran # (Auto) 0.01 H Absolute Nucleated RBC 0.00 Immature Gran % 0 Nucleated RBC % 0 Puncture Site ABG pH ABG pCO2 ABG pO2 ABG HCO3 ABG O2 Saturation ABG Base Excess FiO2 Sodium 144 Potassium 5.1 D Chloride 105 Carbon Dioxide 31.8 H Anion Gap 7 BUN 25 H Creatinine 0.4 L Estim Creat Clear Calc 120.8 eGFR > 60 BUN/Creatinine Ratio 63 H Glucose 139 H Calculated Osmolality 293 Lactic Acid Calcium 8.1 L Corrected Calcium 8.9 Magnesium 2.7 H Total Bilirubin 0.2 L AST 55 H ALT 34 Alkaline Phosphatase 127 H Troponin I Total Protein 5.0 L Albumin 3.0 L Globulin 2.0 L Albumin/Globulin Ratio 1.5 ABG Interpretation ABG results: 04/11/25 04/14/25 04/18/25 21:53 23:37 08:00 ABG pH 7.29 L 7.47 H ABG pCO2 53 H 30 L ABG pO2 90 61 L ABG HCO3 25 21 ABG O2 Saturation 97 94 ABG Base Excess -2 -2 VBG pH 7.36 VBG pCO2 31 L VBG pO2 108 H VBG Base Excess -7 L 04/26/25 04/26/25 20:13 23:17 ABG pH 7.39 7.41 ABG pCO2 55 H 52 H ABG pO2 55 L* 117 H D ABG HCO3 33 H 33 H ABG O2 Saturation 88 L 99 H ABG Base Excess 7 H 7 H VBG pH VBG pCO2 VBG pO2 VBG Base Excess Quality Measures Quality Measures VTE prophylaxis Advance care planning discussed with:: other Assessment & Plan Assessment Current Active Medications: Generic Name Dose Route Start Last Admin Trade Name Freq PRN Reason Stop Dose Admin Collagenase 0 gm 04/27/25 11:00 Collagenase Oint 30 Gm Tube TOP 05/27/25 10:59 QDAY HARPER Dextrose 50 ml 04/12/25 00:08 04/26/25 00:10 Dextrose 50%-Water Inj 50 Ml Syringe IV 05/12/25 00:07 50 ml Q15MIN PRN Administration BG <50 OR BG <70 & pt unresponsive Folic Acid 1 mg 04/18/25 09:00 04/27/25 09:19 Folic Acid 1 Mg Tablet NG 05/18/25 08:59 1 mg QDAY HARPER Administration Glucagon 1 mg 04/12/25 00:08 Glucagon Inj 1 Mg Vial IM Q15MIN PRN BG <70, and no IV access Hydrocortisone 0 gm 04/19/25 11:30 04/27/25 09:19 Hydrocortisone Cr 1% 30 Gm Tube TOP 05/19/25 11:29 1 appln BID HARPER Administration Insulin Degludec 10 unit 04/27/25 09:00 04/27/25 09:19 Insulin Degludec 5 Unit/0.05 Ml (Per 5 Units) SC 05/27/25 08:59 10 unit QDAY HARPER Administration Insulin Human Lispro 0 unit 04/23/25 07:40 04/27/25 05:01 Insulin Lispro (Admelog) 1 Unit/0.01 Ml Unit SC 05/16/25 17:59 Not Given Q6HR HARPER Protocol Levetiracetam 1,000 mg 04/12/25 21:00 04/27/25 09:18 Levetiracetam Inj 100 Mg/Ml Vial 5ml IVP 05/12/25 20:59 1,000 mg Q12HR HARPER Administration Magnesium Hydroxide 30 ml 04/22/25 07:45 04/24/25 22:10 Milk Of Magnesia Susp 30 Ml Udc PO 05/22/25 07:44 30 ml QDAY PRN Administration CONSTIPATION Protocol Multi-Ingredient Ointment 0 oz 04/12/25 12:30 04/27/25 09:19 Min Oil/Pet,White (Eucerin) Cr 16 Oz Btl TOP 05/12/25 12:29 1 appln DAILY HARPER Administration Multivitamins/Minerals 15 ml 04/20/25 09:00 04/27/25 09:19 Multivitamin 15 Ml Udc NG 05/20/25 08:59 15 ml QDAY HARPER Administration Ondansetron HCl 4 mg 04/11/25 22:23 Ondansetron Inj 2 Mg/Ml Inj 2 Ml IVP 05/11/25 22:22 Q6H PRN NAUSEA OR VOMITING Protocol Pantoprazole Sodium 40 mg 04/12/25 10:30 04/27/25 09:18 Pantoprazole Inj 40 Mg Vial IVP 05/12/25 10:29 40 mg QDAY HARPER Administration Thiamine HCl 100 mg 04/18/25 09:00 04/27/25 09:20 Thiamine 100 Mg Tablet NG 05/18/25 08:59 100 mg QDAY HARPER Administration Plan Patient is a 69-year-old female with past medical history of CAD s/p CABG with history of previous multiple PCI, moderate aortic stenosis, CVA/stroke, seizure disorder with Keppra, essential hypertension, hyperlipidemia, baseline dementia, slurred speech, history of left transmetatarsal amputation with questionable PAD, history of fall with displaced intra-articular fracture of the left hip status post open reduction internal fixation in June 2024 was brought in to the emergency department of worsening altered mental status. Admitted to ICU for acute metabolic encephalopathy in setting of hypertonic hyponatremia and acute hypothermia. Cardiology consulted due to concern for cardiogenic shock given history of CAD and moderate aortic stenosis. #Distributive shock, likely septic or distributive, unlikely cardiogenic, resolved #Acute hypothermia, improving #Bradycardia secondary to first-degree heart block #History of aortic stenosis, moderate #History of hypertension #History CVA #History of CAD status post CABG with history of previous multiple PCI # HFpEF (EF 60 to 65%) with stage I diastolic dysfunction Home meds include lisinopril 10 mg daily, aspirin 81 mg daily, Plavix 75 mg daily. On physical exam, auscultated 4/5 ejection systolic murmur radiating to carotids. TSH were normal, A1c was 8.1% in lipid profile showed total cholesterol of 123, HDL of 48 and LDL of 53. Chest x-ray with questionable left-sided pneumonia secondary to aspiration. CT chest abdominal with altered showed small bilateral pleural effusions along with significant thickening of gastric mucosa and some constipation. TTE 06/23/2024 showed normal LV size and function. Mild LVH. Stage I diastolic dysfunction. Estimated EF 60-65%. Normal RV size and function. Moderate AV stenosis, mean gradient 21mmHg, vmax 3.1 m/s. Mild thicken MVL. Midl MR, AI. Trace TR. Bradycardia likely secondary to severe hypothermia. Heart rate now improved to 70s to 80s with conservative treatment of hypothermia. TTE 04/12/25 showed normal left ventricular size and function. Mild LVH. Stage I diastolic dysfunction. Estimated EF 60-65%. Normal RV size and function. RVSP 40 mmHg with RAP 3. Moderate AV stenosis, mean gradient 31 mmHg, vmax 3.7 to 3.8m/s. MELE 1 sq cm. Mild thicken MV leaflets. Mild MR, AI and TR. Compared to prior study of 06/24/24- increased velocities. EKG 04/14 shows sinus bradycardia with first-degree AV block, AL 234, QTc 439. Plan: - Unlikely cardiogenic shock as patient only has moderate aortic stenosis with adequate flow. Likely distributive shock secondary to severe hypothermia or possible sepsis with underlying left lower lobe pneumonia. Patient was bradycardic along with hypotensive on admission which improved with rewarming with a Laverne hugger. - Even if the patient has severe aortic stenosis it is unlikely the patient will be a candidate for TAVR given his multiple comorbidities along with her severe protein calorie malnutrition and will not have good outcome as she is unable to do any kind of rehab. Can consider TAVR for her eventually if her overall clinical status improves over the next few months - Heart rate improving with Laverne hugger. As above, EKG shows first-degree AV block however patient remains asymptomatic with no long pauses noted and is therefore not a candidate for pacemaker placement at this time. - Recommend starting losartan 25 mg daily as patient is now on NG tube if BP permits as part of GDMT. - Avoid beta blockers as patient is already bradycardic ? Stable off Levophed and dopamine. Monitor BP. 04/27/2025- Patient did have bradycardia with heart rate up to 40 bpm overnight but there was no evidence of any secondary or third-degree AV block or any significant pauses. Patient appeared to be in sinus bradycardia. And QTc was prolonged at 495 bpm but QTcB was in the normal range. Patient was sleeping at that point of time and bradycardia as expected. Reviewed the telemetry again this morning and most of the time the patient's heart rate is between 50 to 70 bpm and there is no evidence of any and bradycardia. Patient does have intact chronotropic response. No clear indications for any permanent pacemaker placement at this present point of time. #Hypernatremia, resolved #Acute hypokalemia, resolved #Hypomagnesemia, resolved # Hypophosphatemia, resolved ##Hypocalcemia, resolved Presented with potassium of 2.4 and magnesium 1.1. Overnight given total potassium chloride 40 mEq, magnesium 2 g, calcium gluconate x1. 04/12/2025: Potassium improved to 4.7 at midnight. Calcium improved to 8.7, phosphorus 2.6, magnesium 2.3. ?Keep potassium above 4 and magnesium above 2 - Feeding via NG tube, adjust sodium content if any. #Acute on chronic normocytic anemia #Protein calorie malnutrition #Upper and lower extremity swelling Patient presented with altered mental status and acute metabolic encephalopathy, unclear etiology. Appears to have poor oral intake as the patient was also noted to have severely low albumin at 1.5 as well as total protein at 2.5. Hemoglobin 7.6. In setting of acute gastritis and severe malnutrition. BMI 19.6. 04/23/25: Swelling of hands and feet likely secondary to increased intake. - IV Lasix 20 or oral as needed for swelling - Strict I's and O's ? NG tube feeds as above. - Potential PEG tube placement per primary team, pending MBSS today - GI following - Workup per primary team #[id number]-ldrozkkhr type 2 diabetes #Hx of LT foot metatrasal amputation and RT foot 2nd digit amputation A1c 8.1. Home meds include metformin 1000 mg twice daily. ?SSI per primary team #Acute encephalopathy in setting of #Hypotonic hyponatremia, severe #Left base PNA, possibly aspiration #Right upper lobe pulmonary nodules #Bilateral pleural effusions, small #Pancytopenia #Proctitis, likely acute #Seizure disorder #Hyperlipidemia #Constipation Vs. bowel ileus #Tinea Capitis #Nasal lesion, possibly basal cell carcinoma #Axillary lymphadenopathy #Baseline dementia #History of questionable PAD with transmetatarsal amputation and right toe amputation #COPD Thank you for your consultation, please do not hesitate to reach out if you have any question or concern Patient plan of care was discussed with the attending physician, Dr. Castellanos. Kenisha Marsh, PGY-1 Attending Provider Attestation/Addendum I have personally seen and examined the patient separately on the above date of service and discussed the plan of care with the resident. I reviewed the resident Dr. Kenisha Marsh consultation progress note and agree with the resident findings and plan in the note above and have also edited the documentation to reflect my findings and plan. Jose Castellanos M.D. Interventional Cardiology
[2025-04-27] MEDS: INSULIN LISPRO (AdmeLOG) 1 UNIT/0.01 ML UNIT SC (12:00)
--- NOTE | 2025-04-27 13:40 | ESPR_ITS ---
<Statement entered by Keaton Baltazar MD - 04/27/25 14:36> I have reviewed the note and agree with the resident's assessment & plan with exceptions as below. I have personally reviewed labs, imaging, home meds/prior records, examined the patient, formulated and discussed management plan with my attending. Patient was seen and examined at bedside this morning. Overnight patient had a rapid response called due to being unresponsive however patient awoke after sternal rub. During the rapid EKG was ordered and patient's QTc was 494 and QT was 603 therefore magnesium was given at this time. Also during this time patient's temperature was also on the lower and in the lower 90s therefore Laverne hugger was started again. Patient has been retaining some urine, this could be secondary to constipation. Today patient did have a bowel movement therefore likely expect resolution of urinary retention. Also discontinued patient ceftriaxone and she has completed the full course. Repeat EKG that showed QTc of 450 and QTc of 431, patient is not on any QT prolonging medication at this time, but will continue to stay away from any of these. Patient's continues to improve significantly and was AO x 2 today. Will likely discontinue NG tube today if patient is eating the majority of her meals. Patient's son was made aware of overnight events and updated on patient's current condition. Keaton Baltazar PGY2 Disclaimer: Even though this this note was dictated by speech recognition and even though it was carefully revised there may still be minor errors in industrial safety engineer due to voice recognition software. Documentation for date of: 04/27/25 Subjective Subjective Interval history: Overnight, rapid response called at 1999 due to unresponsiveness however patient was awoken with sternal rub. During rapid, patient was noted to have HR 30s. EKG taken shows rate 40, QT 603 and QTc 494. Lactic acid and trops neg. At 2000, temp 95 degrees and at 0000 temp 91 deg and patient started on Laverne hugger. Furthermore, patient bladder scan found to be retaining 450 cc and patient was straight cathed. Patient seen examined at bedside. On assessment, patient's responses are stronger and oriented to person only, stating hospital as a school and year is 2001. Endorses suprapubic pain. Per nursing, patient was able to spend herself about 4 bites without aspiration. Labs and vitals reviewed. SBP 130-135. Telemetry reviewed at 1999 to early this morning HR high 30s to low 40s and eventually lindsay to 50-low 60s. Hgb stable 9.3, K 5.1, bicarb 31, BUN 25. Sputum culture neg and repeat ekg sinus rhythm rate 65, QT 431, QTc 450. Ceftriaxone sent today. Continue dysphagia diet as well as Glucerna through NG tube at rate of 30 cc an hour. But if patient is eating majority 6 more meals, plan to discontinue NG tube today. Patient was straight cathed overnight and nursing told to discontinue straight cath to determine whether patient can void on her own. Patient has bowel movement today following enema. Spoke to son to update regarding events of rapid response and further updates. Exam Vital Signs Temp Pulse Resp BP Pulse Ox O2 Del Method O2 Flow Rate 96.9 F 76 17 128/68 99 Nasal Cannula 2 04/27/25 12:00 04/27/25 12:00 04/27/25 12:00 04/27/25 12:00 04/27/25 12:00 04/27/25 12:00 04/27/25 12:00 FiO2 62 04/27/25 12:00 Narrative Exam GENERAL: no acute distress, speaking in short sentences, AOx1 to person HEENT: mucous membranes dry, bilateral sclera anicteric, crusted lips, seborrheic dermatitis CARDIOVASCULAR: regular rate and rhythm, 4/6 systolic ejection murmur PULMONARY: CTAB ABDOMINAL: soft, non-tender, non-distended, no rebound/guarding, bowel sounds present, mild suprapubic TTP EXTREMITIES: 1+ pitting edema bilateral thighs, L foot tarsal amputation, R foot 2nd digit amputation, LUE swelling SKIN: warm and dry, widespread improved rash, dermatitis much improved NEURO: CN II-XII grossly intact, able to follow instructions Objective Labs 04/27/25 05:40 04/27/25 14:00 Labs: Laboratory Results - last 24 hr 04/26/25 04/26/25 04/26/25 20:06 20:13 23:17 WBC 5.2 RBC 3.56 L Hgb 9.6 L Hct 29.4 L MCV 83 MCH 27.0 MCHC 32.7 RDW Std Deviation 57.0 H Plt Count 307 D Neut % (Auto) 54 Lymph % (Auto) 15 Davis % (Auto) 6 Eos % (Auto) 24 H Baso % (Auto) 1 Neut # (Auto) 2.8 Lymph # (Auto) 0.8 L Davis # (Auto) 0.3 Eos # (Auto) 1.3 H Baso # (Auto) 0.1 Immature Gran # (Auto) 0.01 H Absolute Nucleated RBC 0.00 Immature Gran % 0 Nucleated RBC % 0 Puncture Site Arterial Line Right Radial ABG pH 7.39 7.41 ABG pCO2 55 H 52 H ABG pO2 55 L* 117 H D ABG HCO3 33 H 33 H ABG O2 Saturation 88 L 99 H ABG Base Excess 7 H 7 H FiO2 21 24 Sodium 143 Potassium 4.6 Chloride 106 Carbon Dioxide 31.4 H Anion Gap 6 L BUN 25 H Creatinine 0.4 L Estim Creat Clear Calc 120.8 eGFR > 60 BUN/Creatinine Ratio 63 H Glucose 138 H Calculated Osmolality 291 Lactic Acid 1.0 Calcium 8.3 Corrected Calcium 9.1 Magnesium Total Bilirubin < 0.2 L AST 48 H ALT 30 Alkaline Phosphatase 127 H Troponin I < 0.020 Total Protein 5.3 L Albumin 3.0 L Globulin 2.3 Albumin/Globulin Ratio 1.3 04/27/25 05:40 WBC 6.5 RBC 3.51 L Hgb 9.3 L Hct 29.0 L MCV 83 MCH 26.5 MCHC 32.1 RDW Std Deviation 55.6 H Plt Count 338 D Neut % (Auto) 65 Lymph % (Auto) 9 L Davis % (Auto) 4 Eos % (Auto) 21 H Baso % (Auto) 1 Neut # (Auto) 4.2 Lymph # (Auto) 0.6 L Davis # (Auto) 0.3 Eos # (Auto) 1.3 H Baso # (Auto) 0.1 Immature Gran # (Auto) 0.01 H Absolute Nucleated RBC 0.00 Immature Gran % 0 Nucleated RBC % 0 Puncture Site ABG pH ABG pCO2 ABG pO2 ABG HCO3 ABG O2 Saturation ABG Base Excess FiO2 Sodium 144 Potassium 5.1 D Chloride 105 Carbon Dioxide 31.8 H Anion Gap 7 BUN 25 H Creatinine 0.4 L Estim Creat Clear Calc 120.8 eGFR > 60 BUN/Creatinine Ratio 63 H Glucose 139 H Calculated Osmolality 293 Lactic Acid Calcium 8.1 L Corrected Calcium 8.9 Magnesium 2.7 H Total Bilirubin 0.2 L AST 55 H ALT 34 Alkaline Phosphatase 127 H Troponin I Total Protein 5.0 L Albumin 3.0 L Globulin 2.0 L Albumin/Globulin Ratio 1.5 ABG Interpretation ABG results: 04/11/25 04/14/25 04/18/25 21:53 23:37 08:00 ABG pH 7.29 L 7.47 H ABG pCO2 53 H 30 L ABG pO2 90 61 L ABG HCO3 25 21 ABG O2 Saturation 97 94 ABG Base Excess -2 -2 VBG pH 7.36 VBG pCO2 31 L VBG pO2 108 H VBG Base Excess -7 L 04/26/25 04/26/25 20:13 23:17 ABG pH 7.39 7.41 ABG pCO2 55 H 52 H ABG pO2 55 L* 117 H D ABG HCO3 33 H 33 H ABG O2 Saturation 88 L 99 H ABG Base Excess 7 H 7 H VBG pH VBG pCO2 VBG pO2 VBG Base Excess Quality Measures Quality Measures VTE prophylaxis Advance care planning discussed with:: child Assessment & Plan Assessment Current Active Medications: Generic Name Dose Route Start Last Admin Trade Name Mino PRN Reason Stop Dose Admin Collagenase 0 gm 04/27/25 11:00 Collagenase Oint 30 Gm Tube TOP 05/27/25 10:59 QDAY HARPER Dextrose 50 ml 04/12/25 00:08 04/26/25 00:10 Dextrose 50%-Water Inj 50 Ml Syringe IV 05/12/25 00:07 50 ml Q15MIN PRN Administration BG <50 OR BG <70 & pt unresponsive Folic Acid 1 mg 04/18/25 09:00 04/27/25 09:19 Folic Acid 1 Mg Tablet NG 05/18/25 08:59 1 mg QDAY HARPER Administration Glucagon 1 mg 04/12/25 00:08 Glucagon Inj 1 Mg Vial IM Q15MIN PRN BG <70, and no IV access Hydrocortisone 0 gm 04/19/25 11:30 04/27/25 09:19 Hydrocortisone Cr 1% 30 Gm Tube TOP 05/19/25 11:29 1 appln BID HARPER Administration Insulin Degludec 10 unit 04/27/25 09:00 04/27/25 09:19 Insulin Degludec 5 Unit/0.05 Ml (Per 5 Units) SC 05/27/25 08:59 10 unit QDAY HARPER Administration Insulin Human Lispro 0 unit 04/23/25 07:40 04/27/25 12:00 Insulin Lispro (Admelog) 1 Unit/0.01 Ml Unit SC 05/16/25 17:59 3 unit Q6HR HARPER Administration Protocol Levetiracetam 1,000 mg 04/12/25 21:00 04/27/25 09:18 Levetiracetam Inj 100 Mg/Ml Vial 5ml IVP 05/12/25 20:59 1,000 mg Q12HR HARPER Administration Magnesium Hydroxide 30 ml 04/22/25 07:45 04/24/25 22:10 Milk Of Magnesia Susp 30 Ml Udc PO 05/22/25 07:44 30 ml QDAY PRN Administration CONSTIPATION Protocol Multi-Ingredient Ointment 0 oz 04/12/25 12:30 04/27/25 09:19 Min Oil/Pet,White (Eucerin) Cr 16 Oz Btl TOP 05/12/25 12:29 1 appln DAILY HARPER Administration Multivitamins/Minerals 15 ml 04/20/25 09:00 04/27/25 09:19 Multivitamin 15 Ml Udc NG 05/20/25 08:59 15 ml QDAY HARPER Administration Ondansetron HCl 4 mg 04/11/25 22:23 Ondansetron Inj 2 Mg/Ml Inj 2 Ml IVP 05/11/25 22:22 Q6H PRN NAUSEA OR VOMITING Protocol Pantoprazole Sodium 40 mg 04/12/25 10:30 04/27/25 09:18 Pantoprazole Inj 40 Mg Vial IVP 05/12/25 10:29 40 mg QDAY HARPER Administration Thiamine HCl 100 mg 04/18/25 09:00 04/27/25 09:20 Thiamine 100 Mg Tablet NG 05/18/25 08:59 100 mg QDAY HARPER Administration Plan Jill Navin 69F pmhx significant for primary hypertension, NIDDM2, CAD s/p CABG, hx of CVA, seizure disorder, age-related dementia, left diabetic foot metatarsal amputation, right foot second digit amputation and COPD, who presented to [facility] ED on 04/11 for acute encephalopathy, initially admitted to ICU for distributive shock from unknown source requiring pressor support and downgraded to floors on 04/13. #Staphylococcus aureus bacteremia #Acute infectious encephalopathy #Dysphagia #L Base PNA, likely aspiration with gram-negative versus anaerobic bacteria #Hypothermia, improving #Distributive shock, resolved Patient presented obtunded with AMS, BP 79/48 MAP 51-52, HR 46, temp 84.7, WBC 2.2. Directly admitted to ICU requiring dopamine and Levophed pressors. Eventually weaned off and downgraded 04/13. Per ICU, mentation has improved since admission following broad spectrum abx and fluid resuscitation. UA unremarkable, lactic acid 0.9 on admission. Lipase 115. Ammonia 37. CRP neg, ESR 55. BCx 1/2 bottles growing GPC. Repeat BCx NGTD. sputum Cx NGTD. CT Head no acute processes. CTAP showed L base PNA, consider aspiration PNA, R upper lobe pulmonary nodules, multiple subcentimeter axillary lymph nodes, small b/l pleural effusions, significant thickening of gastric mucosa, abundant stool in rectosigmoid but no bowel obstruction, rectal wall thickening, consider proctitis, severe osteopenia Ddx: likely septic from L PNA, possible proctitis, gastritis, vs osteomyelitis as patient improved with fluids and abx. Less likely cardiogenic as patient condition has improved off pressors without continued ionotropic support. 04/15 repeat CXR no improvement in diffuse significant L lung PNA RUE swelling noted following PPN initiation, and RUE US negative for DVT. PPN (04/15-04/18) Vancomycin (04/11-04/21), metronidazole (04/11, 04/14 -04/21), cefepime (04/14- 04/21), Ceftriaxone (04/13-04/14, 04/21-04/27) 04/26 VFSS: pnaryngeal penetration, no definite aspiration. Sputum culture NGTD. Plan: - Chest physiotherapy on board - NG tube feeding (04/17- ), plan to discontinue today if patient consumes 50- 75% of 6 small meals/day - TYING MACHINE OPERATOR LUMBER recommend: dysphagia diet - Marking Machine Tender: glucerna feeds to 30 mL #Urinary retention On 04/26 Patient was found to be retaining 605cc on bladder scan. Plan: - Discontinue straight in and out cath to determine whether patient can void on her own - Bladder scans scheduled #Severe thrombocytopenia, resolved #Anemia of chronic disease, stable On admission Hgb platelets 34, on 04/15/2025, count was 29. Peripheral smear shows normocytic normochronic anemia with normal serium iron and TIBC, consistent with anemia of chronic disease, severe thrombocytopenia, and mild neutropenia. Vitals remains stable at this time. 04/15 liver ultrasound shows normal gallbladder, normal blood, bile duct, mild hepatomegaly, partial visualization of right pleural fluid. B12 1400, folate wnl, HIV and hep neg, retic count 0.8, LDH 277. Likely 2/2 infection Plan: - Trend CBC #R upper lobe pulmonary nodules #Multiple subcentimeter axillary lymph nodes #Rectal wall thickening Findings CTAP as above. No history of cancer per chart review however son states has hx of abdominal mass. Plan: - Abx as above - Recommend to follow up outpatient for further management - Discussed with gastroenterology regarding rectal wall thickening found on imaging, likely secondary to distention, appreciate recommendations #Bradycardia 2/2 first degree AV block -improved #Moderate aortic stenosis #Essential HTN Patient presented with HR 46 on admission. Resolved following resolution of hypothermia, fluid resuscitation and abx. TSH wnl 2.73, 04/12 TTE: Normal left ventricular size and function. Mild LVH. Stage I diastolic dysfunction. Estimated EF 60-65%. Normal RV size and function. RVSP 40 mmHg with RAP 3. Moderate AV stenosis, mean gradient 31 mmHg, vmax 3.7 to 3.8m/s. MELE 1 sq cm. Mild thickened MV leaflets. Mild MR, AI and TR. Compared to prior study of 06/24/24- increased velocities. Likely 2/2 infectious etiology vs heart block. Plan: - Cardiology consulted, recs appreciated: likely 2/2 hypothermia, unlikely good candidate for TAVR for or pacemaker for first degree AV block due to patient being asymptomatic at this time - Telemetry for cardiac monitoring - Keep K>4 and Mg>2 at all times #Electrolyte abnormalities #Hypernatremia #Hypokalemia, resolved #Hyperchloremia #Hypobicarbinemia, improving #Hypophosphatemia, resolved #Hypomagnesemia, resolved #Hypocalcemia, resolved On admission, Na 155, K 2.4, Cl 129, bicarb 18.5, glucose 65, Ca 7.0, phos 2.3, Mg 1.1. s/p D5W in ICU Plan: - Recheck and replete as necessary #NIDDM2 #Hx of L diabetic foot tarsal amputation #Hx of osteomyelitis of R foot distal fourth metatarsal and proximal phalanx fourth digit #Hx of R big toe abscess s/p I&D of R big toe and 2nd toe amputation (12/04/24) Admission A1c 8.1. Per med rec takes metformin 1g BID. Possible osteomyelitis as source of distributive shock. Plan: - Degludac 14u - SSI step [address] #Hx of seizures Per history. On home Keppra 1g BID. Unknown when last seizure occurred. Plan: - Continue home Keppra 1g BID - Consider ordering EEG and/or consulting neurology if encephalopathy worsens #Diffuse excoriations, improved #Xeroderma vs atopic dermatitis vs ezcema In ICU initially some concern for scabies, and per son, patient received permethrin and developed skin lesions. Diffuse crusted rash over forehead. Patient continues to scratch however likely 2/2 allergy to permethrin. Per son, patient's skin has been very dry and leathery since returning from rehab. Despite moisturizers, skin remains very dry. Plan: - Hydrocortisone 1% topical - Wound care consulted, recs appreciated - Benadryl prn Hospital management: Lines: PIV Diet: NG Glucerna feeds, frequent meals dysphagia Bowel: senna prn GI prophylaxis: IV pantoprazole 40 mg QD DVT prophylaxis: SCDs Disposition: tele for IV abx CODE STATUS: FULL CODE This case was discussed with my attending physician, Dr. Angeles, and PGY-2 Dr. Gunn. Linda Marsh, DO Internal Medicine PGY-1 Attending Provider Attestation/Addendum I have seen and examined the patient. I was physically present for the montez portions of the services provided including history, physical exam, diagnosis, treatment plans and orders. I agree with assessment and plan of care as documented by residents. Patient seen and examined at bedside this morning. Overnight, patient had episode of unresponsiveness but was able to be awoken with sternal rub following which she was responsive, she was also found to have hypothermia and bradycardia, was started on Laverne hugger following which both hypothermia and bradycardia started improving. Continues to appear more alert today compared to yesterday but oriented x 1-2, continues to be confused. Able to answer simple questions and follow commands. Has been tolerating her diet. Vital signs are stable. Lab results remained stable as well noted to be 5.1 this morning, we will obtain follow-up level in the afternoon. Plan to discussed with speech therapy and dietitian, we will attempt to advance her diet and if patient is able to have been of intake, we will plan for discontinuing NG tube. Patient has been retaining urine and is receiving In-N-Out catheter. We will continue to monitor with bladder scan, if continues to retain, we will consider Juan catheter. Completed her antibiotics course for Staph aureus bacteremia. Even though this this note was carefully revised there may still be minor errors in industrial safety engineer due to voice recognition software. Jake Angeles MD
--- NOTE | 2025-04-27 14:05 | PC.NURSE ---
notified MD of bladder scanner volume of 431 per MD hold on straight cath
[2025-04-27 14:40] LABS: Potassium 5.2 mMol/L (3.4-5.1)
[2025-04-27] MEDS: COLLAGENASE OINT 30 GM TUBE TOP (15:00)
[2025-04-27] MEDS: DiphenhydrAMINE ELIX 25 MG/10 ML UDC PO (15:01)
--- NOTE | 2025-04-27 20:03 | XR_ITS ---
EXAMINATION: AP chest single view TECHNIQUE: AP portable upright chest single view Date and time: April 27, 2025, 2011 hours, comparison April 25, 2025 INDICATIONS: Post orogastric tube placement FINDINGS: Moderate enlargement left ventricle Pulmonary vascular congestion Suspicious for early edema in the lung aguayo Orogastric tube is in the stomach in satisfactory position IMPRESSION: Moderate enlargement cardiac contour with mild heart failure Suspicious for early heart failure Orogastric tube is in satisfactory position
--- NOTE | 2025-04-27 20:04 | ESPR_ITS ---
Documentation for date of: 04/27/25 Subjective Subjective Interval history: Patient on NGT at 30 cc an hour and still eating very little rapid response last night Heart rate in the 30s in the 40s Exam Vital Signs Temp Pulse Resp BP Pulse Ox O2 Del Method O2 Flow Rate 97.7 F 67 18 103/65 98 Room Air 2 04/27/25 16:00 04/27/25 19:23 04/27/25 19:23 04/27/25 16:00 04/27/25 19:23 04/27/25 16:00 04/27/25 12:00 FiO2 62 04/27/25 12:00 Objective Labs 04/27/25 05:40 04/27/25 14:00 Labs: Laboratory Results - last 24 hr 04/26/25 04/26/25 04/26/25 20:06 20:13 23:17 WBC 5.2 RBC 3.56 L Hgb 9.6 L Hct 29.4 L MCV 83 MCH 27.0 MCHC 32.7 RDW Std Deviation 57.0 H Plt Count 307 D Neut % (Auto) 54 Lymph % (Auto) 15 [place] % (Auto) 6 Eos % (Auto) 24 H Baso % (Auto) 1 Neut # (Auto) 2.8 Lymph # (Auto) 0.8 L [place] # (Auto) 0.3 Eos # (Auto) 1.3 H Baso # (Auto) 0.1 Immature Gran # (Auto) 0.01 H Absolute Nucleated RBC 0.00 Immature Gran % 0 Nucleated RBC % 0 Puncture Site Arterial Line Right Radial ABG pH 7.39 7.41 ABG pCO2 55 H 52 H ABG pO2 55 L* 117 H D ABG HCO3 33 H 33 H ABG O2 Saturation 88 L 99 H ABG Base Excess 7 H 7 H FiO2 21 24 Sodium 143 Potassium 4.6 Chloride 106 Carbon Dioxide 31.4 H Anion Gap 6 L BUN 25 H Creatinine 0.4 L Estim Creat Clear Calc 120.8 eGFR > 60 BUN/Creatinine Ratio 63 H Glucose 138 H Calculated Osmolality 291 Lactic Acid 1.0 Calcium 8.3 Corrected Calcium 9.1 Magnesium Total Bilirubin < 0.2 L AST 48 H ALT 30 Alkaline Phosphatase 127 H Troponin I < 0.020 Total Protein 5.3 L Albumin 3.0 L Globulin 2.3 Albumin/Globulin Ratio 1.3 04/27/25 04/27/25 05:40 14:00 WBC 6.5 RBC 3.51 L Hgb 9.3 L Hct 29.0 L MCV 83 MCH 26.5 MCHC 32.1 RDW Std Deviation 55.6 H Plt Count 338 D Neut % (Auto) 65 Lymph % (Auto) 9 L [place] % (Auto) 4 Eos % (Auto) 21 H Baso % (Auto) 1 Neut # (Auto) 4.2 Lymph # (Auto) 0.6 L [place] # (Auto) 0.3 Eos # (Auto) 1.3 H Baso # (Auto) 0.1 Immature Gran # (Auto) 0.01 H Absolute Nucleated RBC 0.00 Immature Gran % 0 Nucleated RBC % 0 Puncture Site ABG pH ABG pCO2 ABG pO2 ABG HCO3 ABG O2 Saturation ABG Base Excess FiO2 Sodium 144 Potassium 5.1 D 5.2 H Chloride 105 Carbon Dioxide 31.8 H Anion Gap 7 BUN 25 H Creatinine 0.4 L Estim Creat Clear Calc 120.8 eGFR > 60 BUN/Creatinine Ratio 63 H Glucose 139 H Calculated Osmolality 293 Lactic Acid Calcium 8.1 L Corrected Calcium 8.9 Magnesium 2.7 H Total Bilirubin 0.2 L AST 55 H ALT 34 Alkaline Phosphatase 127 H Troponin I Total Protein 5.0 L Albumin 3.0 L Globulin 2.0 L Albumin/Globulin Ratio 1.5 Impressions Impression: Failure to thrive Patient on dysphagia diet Still poor p.o. intake Will continue to monitor ABG Interpretation ABG results: 04/11/25 04/14/25 04/18/25 21:53 23:37 08:00 ABG pH 7.29 L 7.47 H ABG pCO2 53 H 30 L ABG pO2 90 61 L ABG HCO3 25 21 ABG O2 Saturation 97 94 ABG Base Excess -2 -2 VBG pH 7.36 VBG pCO2 31 L VBG pO2 108 H VBG Base Excess -7 L 04/26/25 04/26/25 20:13 23:17 ABG pH 7.39 7.41 ABG pCO2 55 H 52 H ABG pO2 55 L* 117 H D ABG HCO3 33 H 33 H ABG O2 Saturation 88 L 99 H ABG Base Excess 7 H 7 H VBG pH VBG pCO2 VBG pO2 VBG Base Excess Assessment & Plan A&P Narrative Patient is a 69-year-old female with past medical history of CAD s/p CABG with history of previous multiple PCI, moderate aortic stenosis, CVA/stroke, seizure disorder with Keppra, essential hypertension, hyperlipidemia, baseline dementia, slurred speech, history of left transmetatarsal amputation with questionable PAD, history of fall with displaced intra-articular fracture of the left hip status post open reduction internal fixation in June 2024 was brought in to the emergency department of worsening altered mental status. Admitted to ICU for acute metabolic encephalopathy in setting of hypertonic hyponatremia and acute hypothermia. Cardiology consulted due to concern for cardiogenic shock given history of CAD and moderate aortic stenosis. #Distributive shock, likely septic or distributive, unlikely cardiogenic, resolved #Acute hypothermia, improving #Bradycardia secondary to first-degree heart block #History of aortic stenosis, moderate #History of hypertension #History CVA #History of CAD status post CABG with history of previous multiple PCI # HFpEF (EF 60 to 65%) with stage I diastolic dysfunction Home meds include lisinopril 10 mg daily, aspirin 81 mg daily, Plavix 75 mg daily. On physical exam, auscultated 4/5 ejection systolic murmur radiating to carotids. TSH were normal, A1c was 8.1% in lipid profile showed total cholesterol of 123, HDL of 48 and LDL of 53. Chest x-ray with questionable left-sided pneumonia secondary to aspiration. CT chest abdominal with altered showed small bilateral pleural effusions along with significant thickening of gastric mucosa and some constipation. TTE 06/23/2024 showed normal LV size and function. Mild LVH. Stage I diastolic dysfunction. Estimated EF 60-65%. Normal RV size and function. Moderate AV stenosis, mean gradient 21mmHg, vmax 3.1 m/s. Mild thicken MVL. Midl MR, AI. Trace TR. Bradycardia likely secondary to severe hypothermia. Heart rate now improved to 70s to 80s with conservative treatment of hypothermia. TTE 04/12/25 showed normal left ventricular size and function. Mild LVH. Stage I diastolic dysfunction. Estimated EF 60-65%. Normal RV size and function. RVSP 40 mmHg with RAP 3. Moderate AV stenosis, mean gradient 31 mmHg, vmax 3.7 to 3.8m/s. MELE 1 sq cm. Mild thicken MV leaflets. Mild MR, AI and TR. Compared to prior study of 06/24/24- increased velocities. EKG 04/14 shows sinus bradycardia with first-degree AV block, MI 234, QTc 439. Plan: - Unlikely cardiogenic shock as patient only has moderate aortic stenosis with adequate flow. Likely distributive shock secondary to severe hypothermia or possible sepsis with underlying left lower lobe pneumonia. Patient was bradycardic along with hypotensive on admission which improved with rewarming with a Laverne hugger. - Even if the patient has severe aortic stenosis it is unlikely the patient will be a candidate for TAVR given his multiple comorbidities along with her severe protein calorie malnutrition and will not have good outcome as she is unable to do any kind of rehab. Can consider TAVR for her eventually if her overall clinical status improves over the next few months - Heart rate improving with Laverne hugger. As above, EKG shows first-degree AV block however patient remains asymptomatic with no long pauses noted and is therefore not a candidate for pacemaker placement at this time. - Recommend starting losartan 25 mg daily as patient is now on NG tube if BP permits as part of GDMT. - Avoid beta blockers as patient is already bradycardic ? Stable off Levophed and dopamine. Monitor BP. 04/21/2025 Diuresed well over the last 24 hours with 20 mg IV Lasix 2600 mL urine output but intake was not accurately measured. Recommend strict input output Patient's BUN actually improved from 37 to 33 with the diuresis and creatinine is stable at 0.5 Potassium improved from 5.3-4.8. Magnesium slightly low at 1.8 Recommend to replace magnesium sulfate. Continue as needed Lasix 20 mg IV or oral or NG tube based on her weights and if patient continues to have leg swelling. Patient is still on NG tube feeds and primary team is discussing with the patient regarding PEG tube placement. GI team also following. Otherwise patient is hemodynamically stable and as noted previously patient needs to follow-up with cardiology and if her clinical status improves then we can plan for further workup for the patient otherwise at this point of time we will continue with medical treatment. Blood pressure is still soft and hold off on other medications at the present point of time and recommend to start with losartan 25 mg once daily when blood pressure is elevated. #Hypernatremia #Acute hypokalemia, resolved #Hypomagnesemia # Hypophosphatemia ##Hypocalcemia, resolved Presented with potassium of 2.4 and magnesium 1.1. Overnight given total potassium chloride 40 mEq, magnesium 2 g, calcium gluconate x1. 04/12/2025: Potassium improved to 4.7 at midnight. Calcium improved to 8.7, phosphorus 2.6, magnesium 2.3. ?Keep potassium above 4 and magnesium above 2 - Feeding via NG tube, adjust sodium content if any. #Acute on chronic normocytic anemia #Protein calorie malnutrition Patient presented with altered mental status and acute metabolic encephalopathy, unclear etiology. Appears to have poor oral intake as the patient was also noted to have severely low albumin at 1.5 as well as total protein at 2.5. Hemoglobin 7.6. In setting of acute gastritis and severe malnutrition. BMI 19.6. ? 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 Home meds include metformin 1000 mg twice daily. ?SSI per primary team #Acute encephalopathy in setting of #Hypotonic hyponatremia, severe #Left base PNA, possibly aspiration #Right upper lobe pulmonary nodules #Bilateral pleural effusions, small #Pancytopenia #Proctitis, likely acute #Seizure disorder #Hyperlipidemia #Constipation Vs. bowel ileus #Tinea Capitis #Nasal lesion, possibly basal cell carcinoma #Axillary lymphadenopathy #Baseline dementia #History of questionable PAD with transmetatarsal amputation and right toe amputation #COPD Time Spent With Patient Time: Total time spent is greater than 50% in coordination of care (as documented) at patient's floor/unit and/or counseling patient:
[2025-04-27 20:34] LABS: Potassium 4.9 mMol/L (3.4-5.1)
[2025-04-27] MEDS: ASCORBIC ACID 250 MG TABLET 500 MG PO (22:12)
[2025-04-28] VITALS (8 sets, daily range): BP systolic 124–146; BP diastolic 55–71; PULSE 53–68; RESP 12–97; TEMP 36.1–36.3; O2SAT 97–98
[2025-04-28 06:15] LABS: Basophils # (Auto) 0.1 Thou/mm3 (0.0-0.2); Basophils % (Auto) 1 % (0-2.5); Eosinophils # (Auto) 1.4 Thou/mm3 (0.0-0.5); Eosinophils % (Auto) 20 % (0-10); Hematocrit 27.3 % (36.0-46.0); Hemoglobin 8.7 g/dL (12.0-16.0); Immature Granulocytes Auto 0.03 Thou/mm3 (0.00-0.00); Lymphocytes # (Auto) 1.1 Thou/mm3 (1.0-4.8); Lymphocytes % (Auto) 15 % (10-50); Mean Corpuscular HGB Conc 31.9 g/dl (31.0-37.0); Mean Corpuscular Hemoglobin 26.7 pg (25.0-35.0); Mean Corpuscular Volume 84 fL (80-100); Monocytes # (Auto) 0.5 Thou/mm3 (0.0-0.8); Monocytes % (Auto) 7 % (0-12); Neutrophils # (Auto) 4.1 Thou/mm3 (1.8-7.7); Neutrophils % (Auto) 57 % (37-80); Nucleated Red Blood Cell # 0.00 Thou/mm3 (0.00-0.00); Nucleated Red Blood Cell % 0 /100 WBC (0); Platelet Count 373 Thou/mm3 (140-440); RDW Standard Deviation 57.1 fL (36.4-46.3); Red Blood Count 3.26 Miln/mm3 (4.00-5.20); White Blood Count 7.1 Thou/mm3 (3.6-11.0)
[2025-04-28 06:39] LABS: Alanine Aminotransferase 26 U/L (10-49); Albumin, Serum 3.0 gm/dL (3.4-4.8); Albumin/Globulin Ratio 1.3 (1.2-2.2); Alkaline Phosphatase 107 U/L (46-116); Anion Gap 6 (7-16); Aspartate Amino Transferase 32 U/L (0-34); BUN/Creatinine Ratio 45 Ratio (12-20); Bilirubin,Total 0.2 mg/dL (0.3-1.2); Blood Urea Nitrogen 18 mg/dL (9-23); Calcium 8.3 mg/dL (8.3-10.6); Calcium (Corrected) 9.1 mg/dL (8.5-10.1); Carbon Dioxide 31.4 mMol/L (20.0-31.0); Chloride 106 mMol/L (98-107); Creatinine (Component) 0.4 mg/dL (0.6-1.3); Estimated Creatinine Clearance 120.8 mL/min (>60); Globulin 2.4 gm/dL (2.3-3.5); Glucose 90 mg/dL (74-106); Magnesium 2.7 mg/dL (1.6-2.6); Osmolality,Calculated 286 (275-295); Potassium 4.7 mMol/L (3.4-5.1); Sodium 143 mMol/L (136-145); Total Protein 5.4 gm/dL (5.7-8.2); eGFR > 60 See Note
[2025-04-28] MEDS: THIAMINE 100 MG TABLET NG (08:48)
[2025-04-28] MEDS: ZINC SULFATE 220 MG CAPSULE PO (08:49)
[2025-04-28] MEDS: FOLIC ACID 1 MG TABLET NG (08:49)
[2025-04-28] MEDS: ASCORBIC ACID 250 MG TABLET 500 MG PO ×2 (08:49→21:26)
[2025-04-28] MEDS: MULTIVITAMIN 15 ML UDC NG (08:50)
[2025-04-28] MEDS: COLLAGENASE OINT 30 GM TUBE TOP (08:51)
[2025-04-28] MEDS: Hydrocortisone Cr 1% 30 GM TUBE TOP ×2 (08:51→21:27)
[2025-04-28] MEDS: MIN OIL/PET,WHITE (Eucerin) CR 16 OZ BTL TOP (08:52)
[2025-04-28] MEDS: levETIRAcetam INJ 100 MG/ML VIAL 5ML 1000 MG IVP ×2 (08:56→21:26)
[2025-04-28 09:09] LABS: Phosphorous 4.5 mg/dL (2.4-5.1)
[2025-04-28] MEDS: INSULIN LISPRO (AdmeLOG) 1 UNIT/0.01 ML UNIT SC ×2 (13:21→18:01)
--- NOTE | 2025-04-28 13:31 | PD.RESPRO ---
Documentation for date of: 04/28/25 Subjective Subjective Interval history: Patient was seen and assessed at bedside. Now tolerating oral feeds. Reports diffuse chest pain, tender on palpation, likely secondary to constant coughing overnight. Also endorses shortness of breath, likely secondary to mucus buildup. Also reports mild abdominal discomfort. Denies any palpitations. Continues to be in first degree heart block on telemetry, HR stable in low 60s. QTc improved on repeat EKG yesterday. Exam Vital Signs Temp Pulse Resp BP Pulse Ox O2 Del Method O2 Flow Rate 97.4 F 60 18 130/71 98 Room Air 1 04/28/25 12:00 04/28/25 12:00 04/28/25 12:00 04/28/25 12:00 04/28/25 12:00 04/28/25 12:00 04/28/25 08:00 FiO2 62 04/28/25 00:00 Narrative Exam General: Awake and in no acute distress. Able to answer simple questions appropriately. Cachectic. HEENT: Normocephalic, atraumatic, mucous membranes dry. Missing upper and bottom teeth. NG tube in place. Heart: Regular rate and rhythm, normal S1 and S2, 4/5 systolic murmur radiating to carotids. Lungs: Mild coarse breath sounds in all lobes, much improved. Abdomen: Soft, nondistended, nontender, positive bowel sounds. No guarding or rebound tenderness. Neurologic: Alert and oriented x1. Strength 5/5 in bilateral upper extremities but R>L. Extremities: No edema. Left foot transmetatarsal amputation. Right foot second digit amputation. Skin: No rash or ecchymoses. Tinea capitis at frontal scalp. Petechial lesions bilateral lower extremities. Very dry skin. Objective Labs 04/28/25 05:34 04/28/25 05:34 Labs: Laboratory Results - last 24 hr 04/27/25 04/27/25 04/28/25 14:00 20:09 05:34 WBC 7.1 RBC 3.26 L Hgb 8.7 L Hct 27.3 L MCV 84 MCH 26.7 MCHC 31.9 RDW Std Deviation 57.1 H Plt Count 373 D Neut % (Auto) 57 Lymph % (Auto) 15 [place] % (Auto) 7 Eos % (Auto) 20 H Baso % (Auto) 1 Neut # (Auto) 4.1 Lymph # (Auto) 1.1 [place] # (Auto) 0.5 Eos # (Auto) 1.4 H Baso # (Auto) 0.1 Immature Gran # (Auto) 0.03 H Absolute Nucleated RBC 0.00 Immature Gran % 0 Nucleated RBC % 0 Sodium 143 Potassium 5.2 H 4.9 4.7 Chloride 106 Carbon Dioxide 31.4 H Anion Gap 6 L BUN 18 Creatinine 0.4 L Estim Creat Clear Calc 120.8 eGFR > 60 BUN/Creatinine Ratio 45 H Glucose 90 Calculated Osmolality 286 Calcium 8.3 Corrected Calcium 9.1 Phosphorus 4.5 Magnesium 2.7 H Total Bilirubin 0.2 L AST 32 ALT 26 Alkaline Phosphatase 107 D Total Protein 5.4 L Albumin 3.0 L Globulin 2.4 Albumin/Globulin Ratio 1.3 ABG Interpretation ABG results: 04/11/25 04/14/25 04/18/25 21:53 23:37 08:00 ABG pH 7.29 L 7.47 H ABG pCO2 53 H 30 L ABG pO2 90 61 L ABG HCO3 25 21 ABG O2 Saturation 97 94 ABG Base Excess -2 -2 VBG pH 7.36 VBG pCO2 31 L VBG pO2 108 H VBG Base Excess -7 L 04/26/25 04/26/25 20:13 23:17 ABG pH 7.39 7.41 ABG pCO2 55 H 52 H ABG pO2 55 L* 117 H D ABG HCO3 33 H 33 H ABG O2 Saturation 88 L 99 H ABG Base Excess 7 H 7 H VBG pH VBG pCO2 VBG pO2 VBG Base Excess Quality Measures Quality Measures VTE prophylaxis Advance care planning discussed with:: other Assessment & Plan Assessment Current Active Medications: Generic Name Dose Route Start Last Admin Trade Name Mikq PRN Reason Stop Dose Admin Ascorbic Acid 500 mg 04/27/25 21:00 04/28/25 08:49 Ascorbic Acid 250 Mg Tablet PO 05/27/25 20:59 500 mg BID HARPER Administration Collagenase 0 gm 04/27/25 11:00 04/28/25 08:51 Collagenase Oint 30 Gm Tube TOP 05/27/25 10:59 1 applicatio QDAY HARPER Administration Dextrose 50 ml 04/12/25 00:08 04/26/25 00:10 Dextrose 50%-Water Inj 50 Ml Syringe IV 05/12/25 00:07 50 ml Q15MIN PRN Administration BG <50 OR BG <70 & pt unresponsive Diphenhydramine HCl 25 mg 04/27/25 14:23 04/27/25 15:01 Diphenhydramine Elix 25 Mg/10 Ml Udc PO 05/27/25 14:22 25 mg Q4HR PRN Administration RASH Folic Acid 1 mg 04/18/25 09:00 04/28/25 08:49 Folic Acid 1 Mg Tablet NG 05/18/25 08:59 1 mg QDAY HARPER Administration Glucagon 1 mg 04/12/25 00:08 Glucagon Inj 1 Mg Vial IM Q15MIN PRN BG <70, and no IV access Hydrocortisone 0 gm 04/19/25 11:30 04/28/25 08:51 Hydrocortisone Cr 1% 30 Gm Tube TOP 05/19/25 11:29 1 appln BID HARPER Administration Insulin Human Lispro 0 unit 04/23/25 07:40 04/28/25 13:21 Insulin Lispro (Admelog) 1 Unit/0.01 Ml Unit SC 05/16/25 17:59 3 unit Q6HR HARPER Administration Protocol Levetiracetam 1,000 mg 04/12/25 21:00 04/28/25 08:56 Levetiracetam Inj 100 Mg/Ml Vial 5ml IVP 05/12/25 20:59 1,000 mg Q12HR HARPER Administration Magnesium Hydroxide 30 ml 04/22/25 07:45 04/24/25 22:10 Milk Of Magnesia Susp 30 Ml Udc PO 05/22/25 07:44 30 ml QDAY PRN Administration CONSTIPATION Protocol Multi-Ingredient Ointment 0 oz 04/12/25 12:30 04/28/25 08:52 Min Oil/Pet,White (Eucerin) Cr 16 Oz Btl TOP 05/12/25 12:29 1 appln DAILY HARPER Administration Multivitamins/Minerals 15 ml 04/20/25 09:00 04/28/25 08:50 Multivitamin 15 Ml Udc NG 05/20/25 08:59 15 ml QDAY HARPER Administration Ondansetron HCl 4 mg 04/11/25 22:23 Ondansetron Inj 2 Mg/Ml Inj 2 Ml IVP 05/11/25 22:22 Q6H PRN NAUSEA OR VOMITING Protocol Pantoprazole Sodium 40 mg 04/12/25 10:30 04/28/25 08:52 Pantoprazole Inj 40 Mg Vial IVP 05/12/25 10:29 40 mg QDAY HARPER Administration Thiamine HCl 100 mg 04/18/25 09:00 04/28/25 08:48 Thiamine 100 Mg Tablet NG 05/18/25 08:59 100 mg QDAY HARPER Administration Zinc Sulfate 220 mg 04/28/25 09:00 04/28/25 08:49 Zinc Sulfate 220 Mg Capsule PO 05/11/25 08:59 220 mg QDAY HARPER Administration Plan Patient is a 69-year-old female with past medical history of CAD s/p CABG with history of previous multiple PCI, moderate aortic stenosis, CVA/stroke, seizure disorder with Keppra, essential hypertension, hyperlipidemia, baseline dementia, slurred speech, history of left transmetatarsal amputation with questionable PAD, history of fall with displaced intra-articular fracture of the left hip status post open reduction internal fixation in June 2024 was brought in to the emergency department of worsening altered mental status. Admitted to ICU for acute metabolic encephalopathy in setting of hypertonic hyponatremia and acute hypothermia. Cardiology consulted due to concern for cardiogenic shock given history of CAD and moderate aortic stenosis. #Distributive shock, likely septic or distributive, unlikely cardiogenic, resolved #Acute hypothermia, improving #Bradycardia secondary to first-degree heart block #History of aortic stenosis, moderate #History of hypertension #History CVA #History of CAD status post CABG with history of previous multiple PCI # HFpEF (EF 60 to 65%) with stage I diastolic dysfunction Home meds include lisinopril 10 mg daily, aspirin 81 mg daily, Plavix 75 mg daily. On physical exam, auscultated 4/5 ejection systolic murmur radiating to carotids. TSH were normal, A1c was 8.1% in lipid profile showed total cholesterol of 123, HDL of 48 and LDL of 53. Chest x-ray with questionable left-sided pneumonia secondary to aspiration. CT chest abdominal with altered showed small bilateral pleural effusions along with significant thickening of gastric mucosa and some constipation. TTE 06/23/2024 showed normal LV size and function. Mild LVH. Stage I diastolic dysfunction. Estimated EF 60-65%. Normal RV size and function. Moderate AV stenosis, mean gradient 21mmHg, vmax 3.1 m/s. Mild thicken MVL. Midl MR, AI. Trace TR. Bradycardia likely secondary to severe hypothermia. Heart rate now improved to 70s to 80s with conservative treatment of hypothermia. TTE 04/12/25 showed normal left ventricular size and function. Mild LVH. Stage I diastolic dysfunction. Estimated EF 60-65%. Normal RV size and function. RVSP 40 mmHg with RAP 3. Moderate AV stenosis, mean gradient 31 mmHg, vmax 3.7 to 3.8m/s. MELE 1 sq cm. Mild thicken MV leaflets. Mild MR, AI and TR. Compared to prior study of 06/24/24- increased velocities. EKG 04/14 shows sinus bradycardia with first-degree AV block, HI 234, QTc 439. Rapid response 04/27/25 for bradycardia with HR 40s overnight. No evidence of secondary or third degree AV block or any significant pauses on telemetry. QTc prolonged at 495 ms but QTcB was in normal range. Patient was asleep so bradycardia expected. Of note, patient was also hypothermic with temperature at 95F. HR improved next morning, in 50-70s. Patient does have intact chronotropic response. No clear indications for any permanent pacemaker placement at this present point of time. Plan: - Unlikely cardiogenic shock as patient only has moderate aortic stenosis with adequate flow. Likely distributive shock secondary to severe hypothermia or possible sepsis with underlying left lower lobe pneumonia. Patient was bradycardic along with hypotensive on admission which improved with rewarming with a Laverne hugger. - Even if the patient has severe aortic stenosis it is unlikely the patient will be a candidate for TAVR given his multiple comorbidities along with her severe protein calorie malnutrition and will not have good outcome as she is unable to do any kind of rehab. Can consider TAVR for her eventually if her overall clinical status improves over the next few months - Heart rate improving with Laverne hugger. As above, EKG shows first-degree AV block however patient remains asymptomatic with no long pauses noted and is therefore not a candidate for pacemaker placement at this time. - Recommend starting losartan 25 mg daily as patient is now on NG tube if BP permits as part of GDMT. - Avoid beta blockers as patient is already bradycardic ? Stable off Levophed and dopamine. Monitor BP. #Hypernatremia, resolved #Acute hypokalemia, resolved #Hypomagnesemia, resolved # Hypophosphatemia, resolved ##Hypocalcemia, resolved Presented with potassium of 2.4 and magnesium 1.1. Overnight given total potassium chloride 40 mEq, magnesium 2 g, calcium gluconate x1. 04/12/2025: Potassium improved to 4.7 at midnight. Calcium improved to 8.7, phosphorus 2.6, magnesium 2.3. ?Keep potassium above 4 and magnesium above 2 - Feeding via NG tube, adjust sodium content if any. #Acute on chronic normocytic anemia #Protein calorie malnutrition #Upper and lower extremity swelling Patient presented with altered mental status and acute metabolic encephalopathy, unclear etiology. Appears to have poor oral intake as the patient was also noted to have severely low albumin at 1.5 as well as total protein at 2.5. Hemoglobin 7.6. In setting of acute gastritis and severe malnutrition. BMI 19.6. 04/23/25: Swelling of hands and feet likely secondary to increased intake. - IV Lasix 20 or oral as needed for swelling - Strict I's and O's ? NG tube feeds as above. - Potential PEG tube placement per primary team, pending MBSS today - GI following - Workup per primary team #[id number] type 2 diabetes #Hx of LT foot metatrasal amputation and RT foot 2nd digit amputation A1c 8.1. Home meds include metformin 1000 mg twice daily. ?SSI per primary team #Acute encephalopathy in setting of #Hypotonic hyponatremia, severe #Left base PNA, possibly aspiration #Right upper lobe pulmonary nodules #Bilateral pleural effusions, small #Pancytopenia #Proctitis, likely acute #Seizure disorder #Hyperlipidemia #Constipation Vs. bowel ileus #Tinea Capitis #Nasal lesion, possibly basal cell carcinoma #Axillary lymphadenopathy #Baseline dementia #History of questionable PAD with transmetatarsal amputation and right toe amputation #COPD Thank you for your consultation, please do not hesitate to reach out if you have any question or concern Patient plan of care was discussed with the attending physician, Dr. Castellanos. Kenisha Marsh, PGY-1 Attending Provider Attestation/Addendum I have personally seen and examined the patient separately on the above date of service and discussed the plan of care with the resident. I reviewed the resident Dr. Kenisha Marsh consultation progress note and agree with the resident findings and plan in the note above and have also edited the documentation to reflect my findings and plan. Jose Castellanos M.D. Interventional Cardiology
--- NOTE | 2025-04-28 14:59 | ESPR_ITS ---
<Statement entered by Keaton Baltazar MD - 04/28/25 17:38> I have reviewed the note and agree with the resident's assessment & plan with exceptions as below. I have personally reviewed labs, imaging, home meds/prior records, examined the patient, formulated and discussed management plan with my attending Patient was seen and examined at bedside this morning. No acute overnight events. Patient again pulled her NG tube this morning, but ate around 60% of her breakfast therefore we will keep NG tube out for now and monitor patient's oral intake today and tomorrow. Also ordered a.m. cortisol levels. Also will continue doing bladder scan as patient sometimes voids and sometimes retains urine. Discontinue degludec given hyperglycemia. Otherwise no complaints at this time. Possible discharge the next 24 to 48 hours. Keaton Baltazar PGY2 Disclaimer: Even though this this note was dictated by speech recognition and even though it was carefully revised there may still be minor errors in ham passer due to voice recognition software. Documentation for date of: 04/28/25 Subjective Subjective Interval history: Overnight, patient received hypoglycemic 58 given juice. Was also found to be retaining 663 on bladder scan, straight cathed. Patient seen examined at bedside, AO x [address]. Denies any bodily pain, reports tolerating meals well. Last bowel movement yesterday. Denies any urinary symptoms. Vitals labs reviewed, SBP [id number]. Hemoglobin stable 8.7, potassium 4.7, bicarb 31, magnesium 2.7. Patient pulled out NG tube today, will encourage dysphagia 6 small meals a day with one-on-one assist. Ordered a.m. cortisol. Continue bladder scans and straight cath as patient does void on her own but occasionally retains. Discontinue degludec keep sliding scale. Continue hydrocortisone and Keppra. Exam Vital Signs Temp Pulse Resp BP Pulse Ox O2 Del Method O2 Flow Rate 97.4 F 60 18 130/71 98 Room Air 1 04/28/25 12:00 04/28/25 12:00 04/28/25 12:00 04/28/25 12:00 04/28/25 12:00 04/28/25 12:00 04/28/25 08:00 FiO2 62 04/28/25 00:00 Narrative Exam GENERAL: no acute distress, AOx2 to person and place HEENT: mucous membranes dry, bilateral sclera anicteric, crusted lips, seborrheic dermatitis CARDIOVASCULAR: regular rate and rhythm, 4/6 systolic ejection murmur PULMONARY: CTAB ABDOMINAL: soft, non-tender, non-distended, no rebound/guarding, bowel sounds present, mild suprapubic TTP EXTREMITIES: 1+ pitting edema bilateral thighs, L foot tarsal amputation, R foot 2nd digit amputation, LUE swelling SKIN: warm and dry, widespread improved rash, dermatitis much improved NEURO: CN II-XII grossly intact, able to follow instructions Objective Labs 04/29/25 05:20 04/29/25 05:20 Labs: Laboratory Results - last 24 hr 04/27/25 04/28/25 20:09 05:34 WBC 7.1 RBC 3.26 L Hgb 8.7 L Hct 27.3 L MCV 84 MCH 26.7 MCHC 31.9 RDW Std Deviation 57.1 H Plt Count 373 D Neut % (Auto) 57 Lymph % (Auto) 15 [place] % (Auto) 7 Eos % (Auto) 20 H Baso % (Auto) 1 Neut # (Auto) 4.1 Lymph # (Auto) 1.1 [place] # (Auto) 0.5 Eos # (Auto) 1.4 H Baso # (Auto) 0.1 Immature Gran # (Auto) 0.03 H Absolute Nucleated RBC 0.00 Immature Gran % 0 Nucleated RBC % 0 Sodium 143 Potassium 4.9 4.7 Chloride 106 Carbon Dioxide 31.4 H Anion Gap 6 L BUN 18 Creatinine 0.4 L Estim Creat Clear Calc 120.8 eGFR > 60 BUN/Creatinine Ratio 45 H Glucose 90 Calculated Osmolality 286 Calcium 8.3 Corrected Calcium 9.1 Phosphorus 4.5 Magnesium 2.7 H Total Bilirubin 0.2 L AST 32 ALT 26 Alkaline Phosphatase 107 D Total Protein 5.4 L Albumin 3.0 L Globulin 2.4 Albumin/Globulin Ratio 1.3 ABG Interpretation ABG results: 04/11/25 04/14/25 04/18/25 21:53 23:37 08:00 ABG pH 7.29 L 7.47 H ABG pCO2 53 H 30 L ABG pO2 90 61 L ABG HCO3 25 21 ABG O2 Saturation 97 94 ABG Base Excess -2 -2 VBG pH 7.36 VBG pCO2 31 L VBG pO2 108 H VBG Base Excess -7 L 04/26/25 04/26/25 20:13 23:17 ABG pH 7.39 7.41 ABG pCO2 55 H 52 H ABG pO2 55 L* 117 H D ABG HCO3 33 H 33 H ABG O2 Saturation 88 L 99 H ABG Base Excess 7 H 7 H VBG pH VBG pCO2 VBG pO2 VBG Base Excess Quality Measures Quality Measures VTE prophylaxis Advance care planning discussed with:: child Assessment & Plan Assessment Current Active Medications: Generic Name Dose Route Start Last Admin Trade Name Freq PRN Reason Stop Dose Admin Ascorbic Acid 500 mg 04/27/25 21:00 04/28/25 08:49 Ascorbic Acid 250 Mg Tablet PO 05/27/25 20:59 500 mg BID HARPER Administration Collagenase 0 gm 04/27/25 11:00 04/28/25 08:51 Collagenase Oint 30 Gm Tube TOP 05/27/25 10:59 1 applicatio QDAY HARPER Administration Dextrose 50 ml 04/12/25 00:08 04/26/25 00:10 Dextrose 50%-Water Inj 50 Ml Syringe IV 05/12/25 00:07 50 ml Q15MIN PRN Administration BG <50 OR BG <70 & pt unresponsive Diphenhydramine HCl 25 mg 04/27/25 14:23 04/27/25 15:01 Diphenhydramine Elix 25 Mg/10 Ml Udc PO 05/27/25 14:22 25 mg Q4HR PRN Administration RASH Folic Acid 1 mg 04/18/25 09:00 04/28/25 08:49 Folic Acid 1 Mg Tablet NG 05/18/25 08:59 1 mg QDAY HARPER Administration Glucagon 1 mg 04/12/25 00:08 Glucagon Inj 1 Mg Vial IM Q15MIN PRN BG <70, and no IV access Hydrocortisone 0 gm 04/19/25 11:30 04/28/25 08:51 Hydrocortisone Cr 1% 30 Gm Tube TOP 05/19/25 11:29 1 appln BID HARPER Administration Insulin Human Lispro 0 unit 04/23/25 07:40 04/28/25 13:21 Insulin Lispro (Admelog) 1 Unit/0.01 Ml Unit SC 05/16/25 17:59 3 unit Q6HR HARPER Administration Protocol Levetiracetam 1,000 mg 04/12/25 21:00 04/28/25 08:56 Levetiracetam Inj 100 Mg/Ml Vial 5ml IVP 05/12/25 20:59 1,000 mg Q12HR HARPER Administration Magnesium Hydroxide 30 ml 04/22/25 07:45 04/24/25 22:10 Milk Of Magnesia Susp 30 Ml Udc PO 05/22/25 07:44 30 ml QDAY PRN Administration CONSTIPATION Protocol Multi-Ingredient Ointment 0 oz 04/12/25 12:30 04/28/25 08:52 Min Oil/Pet,White (Eucerin) Cr 16 Oz Btl TOP 05/12/25 12:29 1 appln DAILY HARPER Administration Multivitamins/Minerals 15 ml 04/20/25 09:00 04/28/25 08:50 Multivitamin 15 Ml Udc NG 05/20/25 08:59 15 ml QDAY HARPER Administration Ondansetron HCl 4 mg 04/11/25 22:23 Ondansetron Inj 2 Mg/Ml Inj 2 Ml IVP 05/11/25 22:22 Q6H PRN NAUSEA OR VOMITING Protocol Pantoprazole Sodium 40 mg 04/12/25 10:30 04/28/25 08:52 Pantoprazole Inj 40 Mg Vial IVP 05/12/25 10:29 40 mg QDAY HARPER Administration Thiamine HCl 100 mg 04/18/25 09:00 04/28/25 08:48 Thiamine 100 Mg Tablet NG 05/18/25 08:59 100 mg QDAY HARPER Administration Zinc Sulfate 220 mg 04/28/25 09:00 04/28/25 08:49 Zinc Sulfate 220 Mg Capsule PO 05/11/25 08:59 220 mg QDAY HARPER Administration Plan Jill Holden 69F pmhx significant for primary hypertension, NIDDM2, CAD s/p CABG, hx of CVA, seizure disorder, age-related dementia, left diabetic foot metatarsal amputation, right foot second digit amputation and COPD, who presented to [facility] ED on 04/11 for acute encephalopathy, initially admitted to ICU for distributive shock from unknown source requiring pressor support and downgraded to floors on 04/13. #Staphylococcus aureus bacteremia #Acute infectious encephalopathy #Dysphagia #L Base PNA, likely aspiration with gram-negative versus anaerobic bacteria #Hypothermia, improving #Distributive shock, resolved Patient presented obtunded with AMS, BP 79/48 MAP 51-52, HR 46, temp 84.7, WBC 2.2. Directly admitted to ICU requiring dopamine and Levophed pressors. Eventually weaned off and downgraded 04/13. Per ICU, mentation has improved since admission following broad spectrum abx and fluid resuscitation. UA unremarkable, lactic acid 0.9 on admission. Lipase 115. Ammonia 37. CRP neg, ESR 55. BCx 1/2 bottles growing GPC. Repeat BCx NGTD. sputum Cx NGTD. CT Head no acute processes. CTAP showed L base PNA, consider aspiration PNA, R upper lobe pulmonary nodules, multiple subcentimeter axillary lymph nodes, small b/l pleural effusions, significant thickening of gastric mucosa, abundant stool in rectosigmoid but no bowel obstruction, rectal wall thickening, consider proctitis, severe osteopenia Ddx: likely septic from L PNA, possible proctitis, gastritis, vs osteomyelitis as patient improved with fluids and abx. Less likely cardiogenic as patient condition has improved off pressors without continued ionotropic support. 04/15 repeat CXR no improvement in diffuse significant L lung PNA RUE swelling noted following PPN initiation, and RUE US negative for DVT. PPN (04/15-04/18) Vancomycin (04/11-04/21), metronidazole (04/11, 04/14 -04/21), cefepime (04/14- 04/21), Ceftriaxone (04/13-04/14, 04/21-04/27) 04/26 VFSS: pnaryngeal penetration, no definite aspiration. Sputum culture NGTD. NG tube feeding (04/17-04/28) Plan: - Dysphagia diet, 6 small meals/day - DRAIN TILER recommend: dysphagia diet - F/u AM cortisol #Urinary retention On 04/26 Patient was found to be retaining 605cc on bladder scan. Plan: - Discontinue straight in and out cath to determine whether patient can void on her own - Bladder scans scheduled #Severe thrombocytopenia, resolved #Anemia of chronic disease, stable On admission Hgb platelets 34, on 04/15/2025, count was 29. Peripheral smear shows normocytic normochronic anemia with normal serium iron and TIBC, consistent with anemia of chronic disease, severe thrombocytopenia, and mild neutropenia. Vitals remains stable at this time. 04/15 liver ultrasound shows normal gallbladder, normal blood, bile duct, mild hepatomegaly, partial visualization of right pleural fluid. B12 1400, folate wnl, HIV and hep neg, retic count 0.8, LDH 277. Likely 2/2 infection Plan: - Trend CBC #R upper lobe pulmonary nodules #Multiple subcentimeter axillary lymph nodes #Rectal wall thickening Findings CTAP as above. No history of cancer per chart review however son states has hx of abdominal mass. Plan: - Abx as above - Recommend to follow up outpatient for further management - Discussed with gastroenterology regarding rectal wall thickening found on imaging, likely secondary to distention, appreciate recommendations #Bradycardia 2/2 first degree AV block -improved #Moderate aortic stenosis #Essential HTN Patient presented with HR 46 on admission. Resolved following resolution of hypothermia, fluid resuscitation and abx. TSH wnl 2.73, 04/12 TTE: Normal left ventricular size and function. Mild LVH. Stage I diastolic dysfunction. Estimated EF 60-65%. Normal RV size and function. RVSP 40 mmHg with RAP 3. Moderate AV stenosis, mean gradient 31 mmHg, vmax 3.7 to 3.8m/s. MELE 1 sq cm. Mild thickened MV leaflets. Mild MR, AI and TR. Compared to prior study of 06/24/24- increased velocities. Likely 2/2 infectious etiology vs heart block. Plan: - Cardiology consulted, recs appreciated: likely 2/2 hypothermia, unlikely good candidate for TAVR for or pacemaker for first degree AV block due to patient being asymptomatic at this time - Telemetry for cardiac monitoring - Keep K>4 and Mg>2 at all times #Electrolyte abnormalities #Hypernatremia #Hypokalemia, resolved #Hyperchloremia #Hypobicarbinemia, improving #Hypophosphatemia, resolved #Hypomagnesemia, resolved #Hypocalcemia, resolved On admission, Na 155, K 2.4, Cl 129, bicarb 18.5, glucose 65, Ca 7.0, phos 2.3, Mg 1.1. s/p D5W in ICU Plan: - Recheck and replete as necessary #NIDDM2 #Hx of L diabetic foot tarsal amputation #Hx of osteomyelitis of R foot distal fourth metatarsal and proximal phalanx fourth digit #Hx of R big toe abscess s/p I&D of R big toe and 2nd toe amputation (12/04/24) Admission A1c 8.1. Per med rec takes metformin 1g BID. Possible osteomyelitis as source of distributive shock. Plan: - SSI in place #Hx of seizures Per history. On home Keppra 1g BID. Unknown when last seizure occurred. Plan: - Continue home Keppra 1g BID - Consider ordering EEG and/or consulting neurology if encephalopathy worsens #Diffuse excoriations, improved #Xeroderma vs atopic dermatitis vs ezcema In ICU initially some concern for scabies, and per son, patient received permethrin and developed skin lesions. Diffuse crusted rash over forehead. Patient continues to scratch however likely 2/2 allergy to permethrin. Per son, patient's skin has been very dry and leathery since returning from rehab. Despite moisturizers, skin remains very dry. Plan: - Hydrocortisone 1% topical - Wound care consulted, recs appreciated - Benadryl prn Hospital management: Lines: PIV Diet: NG Glucerna feeds, frequent meals dysphagia Bowel: senna prn GI prophylaxis: IV pantoprazole 40 mg QD DVT prophylaxis: SCDs Disposition: tele for IV abx CODE STATUS: FULL CODE This case was discussed with my attending physician, Dr. Dallas, and PGY-2 Dr. Gunn. Linda Marsh DO Internal Medicine PGY-1 Attending Provider Attestation/Addendum I, Kerri Dallas DO, attest that I was physically present for the montez portions of the service and evaluated the patient with the resident and I reviewed and discussed the case with the resident and agree with the resident's findings and plans of care as documented above Patient seen and evaluated this AM. Mental status improved. Patient is A&Ox2. Rash appears to have improved with topical steroids. Patient removed NG tube overnight. Will encourage PO intake. BG has been fluctuating. Will DC long acting insulin and continue with sliding scale only. No episodes of hypothermia overnight.
--- NOTE | 2025-04-28 15:13 | PC.SS ---
Rounding Note: Patient pulled out NG tube. Medical team to discuss with family feeding options.
--- NOTE | 2025-04-28 19:22 | PD.IMPROG ---
Documentation for date of: 04/28/25 Subjective Subjective Interval history: patient evaluated she pulled the NGT out but major improvement in eating this morning Exam Vital Signs Temp Pulse Resp BP Pulse Ox O2 Del Method O2 Flow Rate 97.0 F 60 17 127/64 97 Room Air 1 04/28/25 16:00 04/28/25 16:00 04/28/25 16:00 04/28/25 16:00 04/28/25 16:00 04/28/25 16:00 04/28/25 08:00 FiO2 62 04/28/25 00:00 Objective Labs 04/28/25 05:34 04/28/25 05:34 Labs: Laboratory Results - last 24 hr 04/27/25 04/28/25 20:09 05:34 WBC 7.1 RBC 3.26 L Hgb 8.7 L Hct 27.3 L MCV 84 MCH 26.7 MCHC 31.9 RDW Std Deviation 57.1 H Plt Count 373 D Neut % (Auto) 57 Lymph % (Auto) 15 [place] % (Auto) 7 Eos % (Auto) 20 H Baso % (Auto) 1 Neut # (Auto) 4.1 Lymph # (Auto) 1.1 [place] # (Auto) 0.5 Eos # (Auto) 1.4 H Baso # (Auto) 0.1 Immature Gran # (Auto) 0.03 H Absolute Nucleated RBC 0.00 Immature Gran % 0 Nucleated RBC % 0 Sodium 143 Potassium 4.9 4.7 Chloride 106 Carbon Dioxide 31.4 H Anion Gap 6 L BUN 18 Creatinine 0.4 L Estim Creat Clear Calc 120.8 eGFR > 60 BUN/Creatinine Ratio 45 H Glucose 90 Calculated Osmolality 286 Calcium 8.3 Corrected Calcium 9.1 Phosphorus 4.5 Magnesium 2.7 H Total Bilirubin 0.2 L AST 32 ALT 26 Alkaline Phosphatase 107 D Total Protein 5.4 L Albumin 3.0 L Globulin 2.4 Albumin/Globulin Ratio 1.3 Impressions Impression: Failure to thrive oral intake improving Leave NGT out lets see how she does ABG Interpretation ABG results: 04/11/25 04/14/25 04/18/25 21:53 23:37 08:00 ABG pH 7.29 L 7.47 H ABG pCO2 53 H 30 L ABG pO2 90 61 L ABG HCO3 25 21 ABG O2 Saturation 97 94 ABG Base Excess -2 -2 VBG pH 7.36 VBG pCO2 31 L VBG pO2 108 H VBG Base Excess -7 L 04/26/25 04/26/25 20:13 23:17 ABG pH 7.39 7.41 ABG pCO2 55 H 52 H ABG pO2 55 L* 117 H D ABG HCO3 33 H 33 H ABG O2 Saturation 88 L 99 H ABG Base Excess 7 H 7 H VBG pH VBG pCO2 VBG pO2 VBG Base Excess Assessment & Plan A&P Narrative Patient is a 69-year-old female with past medical history of CAD s/p CABG with history of previous multiple PCI, moderate aortic stenosis, CVA/stroke, seizure disorder with Keppra, essential hypertension, hyperlipidemia, baseline dementia, slurred speech, history of left transmetatarsal amputation with questionable PAD, history of fall with displaced intra-articular fracture of the left hip status post open reduction internal fixation in June 2024 was brought in to the emergency department of worsening altered mental status. Admitted to ICU for acute metabolic encephalopathy in setting of hypertonic hyponatremia and acute hypothermia. Cardiology consulted due to concern for cardiogenic shock given history of CAD and moderate aortic stenosis. #Distributive shock, likely septic or distributive, unlikely cardiogenic, resolved #Acute hypothermia, improving #Bradycardia secondary to first-degree heart block #History of aortic stenosis, moderate #History of hypertension #History CVA #History of CAD status post CABG with history of previous multiple PCI # HFpEF (EF 60 to 65%) with stage I diastolic dysfunction Home meds include lisinopril 10 mg daily, aspirin 81 mg daily, Plavix 75 mg daily. On physical exam, auscultated 4/5 ejection systolic murmur radiating to carotids. TSH were normal, A1c was 8.1% in lipid profile showed total cholesterol of 123, HDL of 48 and LDL of 53. Chest x-ray with questionable left-sided pneumonia secondary to aspiration. CT chest abdominal with altered showed small bilateral pleural effusions along with significant thickening of gastric mucosa and some constipation. TTE 06/23/2024 showed normal LV size and function. Mild LVH. Stage I diastolic dysfunction. Estimated EF 60-65%. Normal RV size and function. Moderate AV stenosis, mean gradient 21mmHg, vmax 3.1 m/s. Mild thicken MVL. Midl MR, AI. Trace TR. Bradycardia likely secondary to severe hypothermia. Heart rate now improved to 70s to 80s with conservative treatment of hypothermia. TTE 04/12/25 showed normal left ventricular size and function. Mild LVH. Stage I diastolic dysfunction. Estimated EF 60-65%. Normal RV size and function. RVSP 40 mmHg with RAP 3. Moderate AV stenosis, mean gradient 31 mmHg, vmax 3.7 to 3.8m/s. MELE 1 sq cm. Mild thicken MV leaflets. Mild MR, AI and TR. Compared to prior study of 06/24/24- increased velocities. EKG 04/14 shows sinus bradycardia with first-degree AV block, NV 234, QTc 439. Plan: - Unlikely cardiogenic shock as patient only has moderate aortic stenosis with adequate flow. Likely distributive shock secondary to severe hypothermia or possible sepsis with underlying left lower lobe pneumonia. Patient was bradycardic along with hypotensive on admission which improved with rewarming with a Laverne hugger. - Even if the patient has severe aortic stenosis it is unlikely the patient will be a candidate for TAVR given his multiple comorbidities along with her severe protein calorie malnutrition and will not have good outcome as she is unable to do any kind of rehab. Can consider TAVR for her eventually if her overall clinical status improves over the next few months - Heart rate improving with Laverne hugger. As above, EKG shows first-degree AV block however patient remains asymptomatic with no long pauses noted and is therefore not a candidate for pacemaker placement at this time. - Recommend starting losartan 25 mg daily as patient is now on NG tube if BP permits as part of GDMT. - Avoid beta blockers as patient is already bradycardic ? Stable off Levophed and dopamine. Monitor BP. 04/21/2025 Diuresed well over the last 24 hours with 20 mg IV Lasix 2600 mL urine output but intake was not accurately measured. Recommend strict input output Patient's BUN actually improved from 37 to 33 with the diuresis and creatinine is stable at 0.5 Potassium improved from 5.3-4.8. Magnesium slightly low at 1.8 Recommend to replace magnesium sulfate. Continue as needed Lasix 20 mg IV or oral or NG tube based on her weights and if patient continues to have leg swelling. Patient is still on NG tube feeds and primary team is discussing with the patient regarding PEG tube placement. GI team also following. Otherwise patient is hemodynamically stable and as noted previously patient needs to follow-up with cardiology and if her clinical status improves then we can plan for further workup for the patient otherwise at this point of time we will continue with medical treatment. Blood pressure is still soft and hold off on other medications at the present point of time and recommend to start with losartan 25 mg once daily when blood pressure is elevated. #Hypernatremia #Acute hypokalemia, resolved #Hypomagnesemia # Hypophosphatemia ##Hypocalcemia, resolved Presented with potassium of 2.4 and magnesium 1.1. Overnight given total potassium chloride 40 mEq, magnesium 2 g, calcium gluconate x1. 04/12/2025: Potassium improved to 4.7 at midnight. Calcium improved to 8.7, phosphorus 2.6, magnesium 2.3. ?Keep potassium above 4 and magnesium above 2 - Feeding via NG tube, adjust sodium content if any. #Acute on chronic normocytic anemia #Protein calorie malnutrition Patient presented with altered mental status and acute metabolic encephalopathy, unclear etiology. Appears to have poor oral intake as the patient was also noted to have severely low albumin at 1.5 as well as total protein at 2.5. Hemoglobin 7.6. In setting of acute gastritis and severe malnutrition. BMI 19.6. ? NG tube feeds as above - Workup per primary team #Oif-[id number]-klpsptont type 2 diabetes #Hx of LT foot metatrasal amputation and RT foot 2nd digit amputation A1c 8.1. Home meds include metformin 1000 mg twice daily. ?SSI per primary team #Acute encephalopathy in setting of #Hypotonic hyponatremia, severe #Left base PNA, possibly aspiration #Right upper lobe pulmonary nodules #Bilateral pleural effusions, small #Pancytopenia #Proctitis, likely acute #Seizure disorder #Hyperlipidemia #Constipation Vs. bowel ileus #Tinea Capitis #Nasal lesion, possibly basal cell carcinoma #Axillary lymphadenopathy #Baseline dementia #History of questionable PAD with transmetatarsal amputation and right toe amputation #COPD Time Spent With Patient Time: Total time spent is greater than 50% in coordination of care (as documented) at patient's floor/unit and/or counseling patient:
[2025-04-29] VITALS (8 sets, daily range): BP systolic 109–157; BP diastolic 62–74; PULSE 51–79; RESP 12–100; TEMP 35.9–36.2; O2SAT 97–99
[2025-04-29] MEDS: DiphenhydrAMINE ELIX 25 MG/10 ML UDC PO (00:02)
[2025-04-29 05:56] LABS: Basophils # (Auto) 0.1 Thou/mm3 (0.0-0.2); Basophils % (Auto) 1 % (0-2.5); Eosinophils # (Auto) 1.7 Thou/mm3 (0.0-0.5); Eosinophils % (Auto) 26 % (0-10); Hematocrit 28.5 % (36.0-46.0); Hemoglobin 8.9 g/dL (12.0-16.0); Immature Granulocytes Auto 0.01 Thou/mm3 (0.00-0.00); Lymphocytes # (Auto) 1.2 Thou/mm3 (1.0-4.8); Lymphocytes % (Auto) 18 % (10-50); Mean Corpuscular HGB Conc 31.2 g/dl (31.0-37.0); Mean Corpuscular Hemoglobin 26.9 pg (25.0-35.0); Mean Corpuscular Volume 86 fL (80-100); Monocytes # (Auto) 0.5 Thou/mm3 (0.0-0.8); Monocytes % (Auto) 7 % (0-12); Neutrophils # (Auto) 3.2 Thou/mm3 (1.8-7.7); Neutrophils % (Auto) 48 % (37-80); Nucleated Red Blood Cell # 0.00 Thou/mm3 (0.00-0.00); Nucleated Red Blood Cell % 0 /100 WBC (0); Platelet Count 366 Thou/mm3 (140-440); RDW Standard Deviation 59.7 fL (36.4-46.3); Red Blood Count 3.31 Miln/mm3 (4.00-5.20); White Blood Count 6.7 Thou/mm3 (3.6-11.0)
[2025-04-29 06:29] LABS: Alanine Aminotransferase 24 U/L (10-49); Albumin, Serum 3.0 gm/dL (3.4-4.8); Albumin/Globulin Ratio 1.4 (1.2-2.2); Alkaline Phosphatase 103 U/L (46-116); Anion Gap 6 (7-16); Aspartate Amino Transferase 28 U/L (0-34); BUN/Creatinine Ratio 43 Ratio (12-20); Bilirubin,Total 0.3 mg/dL (0.3-1.2); Blood Urea Nitrogen 17 mg/dL (9-23); Calcium 7.9 mg/dL (8.3-10.6); Calcium (Corrected) 8.7 mg/dL (8.5-10.1); Carbon Dioxide 32.2 mMol/L (20.0-31.0); Chloride 107 mMol/L (98-107); Creatinine (Component) 0.4 mg/dL (0.6-1.3); Estimated Creatinine Clearance 120.8 mL/min (>60); Globulin 2.1 gm/dL (2.3-3.5); Glucose 132 mg/dL (74-106); Magnesium 2.4 mg/dL (1.6-2.6); Osmolality,Calculated 292 (275-295); Phosphorous 3.5 mg/dL (2.4-5.1); Potassium 4.6 mMol/L (3.4-5.1); Sodium 145 mMol/L (136-145); Total Protein 5.1 gm/dL (5.7-8.2); eGFR > 60 See Note
[2025-04-29] MEDS: MULTIVITAMIN 15 ML UDC NG (08:32)
[2025-04-29] MEDS: levETIRAcetam INJ 100 MG/ML VIAL 5ML 1000 MG IVP ×2 (08:32→20:37)
[2025-04-29] MEDS: THIAMINE 100 MG TABLET NG (08:33)
[2025-04-29] MEDS: FOLIC ACID 1 MG TABLET NG (08:33)
[2025-04-29] MEDS: ASCORBIC ACID 250 MG TABLET 500 MG PO ×2 (08:33→20:36)
[2025-04-29] MEDS: MIN OIL/PET,WHITE (Eucerin) CR 16 OZ BTL TOP (08:34)
[2025-04-29] MEDS: Hydrocortisone Cr 1% 30 GM TUBE TOP ×2 (08:34→20:38)
[2025-04-29] MEDS: COLLAGENASE OINT 30 GM TUBE TOP (08:34)
[2025-04-29] MEDS: ZINC SULFATE 220 MG CAPSULE PO (08:35)
--- NOTE | 2025-04-29 09:26 | PD.RESPRO ---
Documentation for date of: 04/29/25 Subjective Subjective Interval history: Patient was seen and examined at bedside; no acute events overnight. Patient has been eating, but did not eat any of her meal at 2100; ate most of her breakfast this morning. talked with son about discharge plans, most likely tomorrow p.m. Exam Vital Signs Temp Pulse Resp BP Pulse Ox O2 Del Method O2 Flow Rate 96.8 F 56 L 19 109/66 98 Room Air 1 04/29/25 08:00 04/29/25 09:21 04/29/25 09:21 04/29/25 08:00 04/29/25 08:00 04/29/25 08:00 04/28/25 08:00 FiO2 62 04/28/25 00:00 Narrative Exam General: A/O x2, no acute distress, thin Eyes: PERRL, EOMI. Anicteric, vision grossly intact. Ears: No ear pain, no ear discharge, Hearing grossly intact. Nose: No nasal discharge. Mouth/Throat: Dry mucous membranes, no redness, no lesions. Neck: Neck supple, non-tender, no cervical lymphadenopathy. Lungs: Clear MARIE to auscultation and percussion, No accessory muscle use. Cardio: Normal S1/S2, regular rhythm, systolic ejection murmur, no JVD or carotid bruits. Abdomen: Soft, non-tender, no palpable masses, peristalsis present, no guarding or rebound. Extremities: Symmetrical, L foot tarsal amputation, R foot 2nd digit amputation, LUE edema , non-tender, peripheral pulses present. Skin: rash and dermatitis improving Neuro: No focal neurological deficits. Psych: Cooperative, appropriate mood and effect. Objective Labs 04/30/25 06:02 04/30/25 06:02 Labs: Laboratory Results - last 24 hr 04/29/25 05:20 WBC 6.7 RBC 3.31 L Hgb 8.9 L Hct 28.5 L MCV 86 MCH 26.9 MCHC 31.2 RDW Std Deviation 59.7 H Plt Count 366 Neut % (Auto) 48 Lymph % (Auto) 18 [place] % (Auto) 7 Eos % (Auto) 26 H Baso % (Auto) 1 Neut # (Auto) 3.2 Lymph # (Auto) 1.2 [place] # (Auto) 0.5 Eos # (Auto) 1.7 H Baso # (Auto) 0.1 Immature Gran # (Auto) 0.01 H Absolute Nucleated RBC 0.00 Immature Gran % 0 Nucleated RBC % 0 Sodium 145 Potassium 4.6 Chloride 107 Carbon Dioxide 32.2 H Anion Gap 6 L BUN 17 Creatinine 0.4 L Estim Creat Clear Calc 120.8 eGFR > 60 BUN/Creatinine Ratio 43 H Glucose 132 H Calculated Osmolality 292 Calcium 7.9 L Corrected Calcium 8.7 Phosphorus 3.5 Magnesium 2.4 Total Bilirubin 0.3 AST 28 ALT 24 Alkaline Phosphatase 103 Total Protein 5.1 L Albumin 3.0 L Globulin 2.1 L Albumin/Globulin Ratio 1.4 ABG Interpretation ABG results: 04/11/25 04/14/25 04/18/25 21:53 23:37 08:00 ABG pH 7.29 L 7.47 H ABG pCO2 53 H 30 L ABG pO2 90 61 L ABG HCO3 25 21 ABG O2 Saturation 97 94 ABG Base Excess -2 -2 VBG pH 7.36 VBG pCO2 31 L VBG pO2 108 H VBG Base Excess -7 L 04/26/25 04/26/25 20:13 23:17 ABG pH 7.39 7.41 ABG pCO2 55 H 52 H ABG pO2 55 L* 117 H D ABG HCO3 33 H 33 H ABG O2 Saturation 88 L 99 H ABG Base Excess 7 H 7 H VBG pH VBG pCO2 VBG pO2 VBG Base Excess Quality Measures Quality Measures VTE prophylaxis Advance care planning discussed with:: other Assessment & Plan Assessment Current Active Medications: Generic Name Dose Route Start Last Admin Trade Name Mikq PRN Reason Stop Dose Admin Ascorbic Acid 500 mg 04/27/25 21:00 04/29/25 08:33 Ascorbic Acid 250 Mg Tablet PO 05/27/25 20:59 500 mg BID HARPER Administration Collagenase 0 gm 04/27/25 11:00 04/29/25 08:34 Collagenase Oint 30 Gm Tube TOP 05/27/25 10:59 1 applicatio QDAY HARPER Administration Dextrose 50 ml 04/12/25 00:08 04/26/25 00:10 Dextrose 50%-Water Inj 50 Ml Syringe IV 05/12/25 00:07 50 ml Q15MIN PRN Administration BG <50 OR BG <70 & pt unresponsive Diphenhydramine HCl 25 mg 04/27/25 14:23 04/29/25 00:02 Diphenhydramine Elix 25 Mg/10 Ml Udc PO 05/27/25 14:22 25 mg Q4HR PRN Administration RASH Folic Acid 1 mg 04/18/25 09:00 04/29/25 08:33 Folic Acid 1 Mg Tablet NG 05/18/25 08:59 1 mg QDAY HARPER Administration Glucagon 1 mg 04/12/25 00:08 Glucagon Inj 1 Mg Vial IM Q15MIN PRN BG <70, and no IV access Hydrocortisone 0 gm 04/19/25 11:30 04/29/25 08:34 Hydrocortisone Cr 1% 30 Gm Tube TOP 05/19/25 11:29 1 appln BID HARPER Administration Insulin Human Lispro 0 unit 04/23/25 07:40 04/29/25 05:51 Insulin Lispro (Admelog) 1 Unit/0.01 Ml Unit SC 05/16/25 17:59 Not Given Q6HR HARPER Protocol Levetiracetam 1,000 mg 04/12/25 21:00 04/29/25 08:32 Levetiracetam Inj 100 Mg/Ml Vial 5ml IVP 05/12/25 20:59 1,000 mg Q12HR HARPER Administration Magnesium Hydroxide 30 ml 04/22/25 07:45 04/24/25 22:10 Milk Of Magnesia Susp 30 Ml Udc PO 05/22/25 07:44 30 ml QDAY PRN Administration CONSTIPATION Protocol Multi-Ingredient Ointment 0 oz 04/12/25 12:30 04/29/25 08:34 Min Oil/Pet,White (Eucerin) Cr 16 Oz Btl TOP 05/12/25 12:29 1 appln DAILY HARPER Administration Multivitamins/Minerals 15 ml 04/20/25 09:00 04/29/25 08:32 Multivitamin 15 Ml Udc NG 05/20/25 08:59 15 ml QDAY HARPER Administration Ondansetron HCl 4 mg 04/11/25 22:23 Ondansetron Inj 2 Mg/Ml Inj 2 Ml IVP 05/11/25 22:22 Q6H PRN NAUSEA OR VOMITING Protocol Pantoprazole Sodium 40 mg 04/12/25 10:30 04/29/25 08:35 Pantoprazole Inj 40 Mg Vial IVP 05/12/25 10:29 40 mg QDAY HARPER Administration Thiamine HCl 100 mg 04/18/25 09:00 04/29/25 08:33 Thiamine 100 Mg Tablet NG 05/18/25 08:59 100 mg QDAY HARPER Administration Zinc Sulfate 220 mg 04/28/25 09:00 04/29/25 08:35 Zinc Sulfate 220 Mg Capsule PO 05/11/25 08:59 220 mg QDAY HARPER Administration Plan Jill Holden 69F PMH significant for primary hypertension, NIDDM2, CAD s/p CABG, hx of CVA, seizure disorder, age-related dementia, left diabetic foot metatarsal amputation, right foot second digit amputation and COPD, who presented to [facility] ED on 04/11 for acute encephalopathy, initially admitted to ICU for distributive shock from unknown source requiring pressor support and downgraded to floors on 04/13. #Staphylococcus aureus bacteremia #Acute infectious encephalopathy #Dysphagia #L Base PNA, likely aspiration with gram-negative versus anaerobic bacteria #Hypothermia, improving #Distributive shock, resolved Patient presented obtunded with AMS, BP 79/48 MAP 51-52, HR 46, temp 84.7, WBC 2.2. Directly admitted to ICU requiring dopamine and Levophed pressors. Eventually weaned off and downgraded 04/13. Per ICU, mentation has improved since admission following broad spectrum abx and fluid resuscitation. UA unremarkable, lactic acid 0.9 on admission. Lipase 115. Ammonia 37. CRP neg, ESR 55. BCx 1/2 bottles growing GPC. Repeat BCx NGTD. sputum Cx NGTD. CT Head no acute processes. CTAP showed L base PNA, consider aspiration PNA, R upper lobe pulmonary nodules, multiple subcentimeter axillary lymph nodes, small b/l pleural effusions, significant thickening of gastric mucosa, abundant stool in rectosigmoid but no bowel obstruction, rectal wall thickening, consider proctitis, severe osteopenia Ddx: likely septic from L PNA, possible proctitis, gastritis, vs osteomyelitis as patient improved with fluids and abx. Less likely cardiogenic as patient condition has improved off pressors without continued ionotropic support. 04/15 repeat CXR no improvement in diffuse significant L lung PNA RUE swelling noted following PPN initiation, and RUE US negative for DVT. PPN (04/15-04/18) Vancomycin (04/11-04/21), metronidazole (04/11, 04/14 -04/21), cefepime (04/14-04/21), Ceftriaxone (04/13-04/14, 04/21-04/27) 04/26 VFSS: pnaryngeal penetration, no definite aspiration. Sputum culture NGTD. NG tube feeding (04/17-04/28) 04/29- patient has eaten most of breakfast, did not eat any of 2100 meal last night, ate part of meals before than Plan: - Dysphagia diet, 6 small meals/day - SPOOL FIXER recommend: dysphagia diet - F/u AM cortisol #Urinary retention On 04/26 Patient was found to be retaining 605cc on bladder scan. Plan: - Discontinue straight in and out cath to determine whether patient can void on her own - Bladder scans scheduled #Severe thrombocytopenia, resolved #Anemia of chronic disease, stable On admission Hgb platelets 34, on 04/15/2025, count was 29. Peripheral smear shows normocytic normochronic anemia with normal serium iron and TIBC, consistent with anemia of chronic disease, severe thrombocytopenia, and mild neutropenia. Vitals remains stable at this time. 04/15 liver ultrasound shows normal gallbladder, normal blood, bile duct, mild hepatomegaly, partial visualization of right pleural fluid. B12 1400, folate wnl, HIV and hep neg, retic count 0.8, LDH 277. Likely 2/2 infection Plan: - Trend CBC #R upper lobe pulmonary nodules #Multiple subcentimeter axillary lymph nodes #Rectal wall thickening Findings CTAP as above. No history of cancer per chart review however son states has hx of abdominal mass. Plan: - Abx as above - Recommend to follow up outpatient for further management - Discussed with gastroenterology regarding rectal wall thickening found on imaging, likely secondary to distention, appreciate recommendations #Bradycardia 2/2 first degree AV block -improved #Moderate aortic stenosis #Essential HTN Patient presented with HR 46 on admission. Resolved following resolution of hypothermia, fluid resuscitation and abx. TSH wnl 2.73, 04/12 TTE: Normal left ventricular size and function. Mild LVH. Stage I diastolic dysfunction. Estimated EF 60-65%. Normal RV size and function. RVSP 40 mmHg with RAP 3. Moderate AV stenosis, mean gradient 31 mmHg, vmax 3.7 to 3.8m/s. MELE 1 sq cm. Mild thickened MV leaflets. Mild MR, AI and TR. Compared to prior study of 06/24/24- increased velocities. Likely 2/2 infectious etiology vs heart block. Plan: - Cardiology consulted, recs appreciated: likely 2/2 hypothermia, unlikely good candidate for TAVR for or pacemaker for first degree AV block due to patient being asymptomatic at this time - Telemetry for cardiac monitoring - Keep K>4 and Mg>2 at all times #Electrolyte abnormalities #Hypernatremia #Hypokalemia, resolved #Hyperchloremia #Hypobicarbinemia, improving #Hypophosphatemia, resolved #Hypomagnesemia, resolved #Hypocalcemia, resolved On admission, Na 155, K 2.4, Cl 129, bicarb 18.5, glucose 65, Ca 7.0, phos 2.3, Mg 1.1. s/p D5W in ICU Plan: - Recheck and replete as necessary #NIDDM2 #Hx of L diabetic foot tarsal amputation #Hx of osteomyelitis of R foot distal fourth metatarsal and proximal phalanx fourth digit #Hx of R big toe abscess s/p I&D of R big toe and 2nd toe amputation (12/04/24) Admission A1c 8.1. Per med rec takes metformin 1g BID. Possible osteomyelitis as source of distributive shock. Plan: - SSI in place #Hx of seizures Per history. On home Keppra 1g BID. Unknown when last seizure occurred. Plan: - Continue home Keppra 1g BID - Consider ordering EEG and/or consulting neurology if encephalopathy worsens #Diffuse excoriations, improved #Xeroderma vs atopic dermatitis vs eczema In ICU initially some concern for scabies, and per son, patient received permethrin and developed skin lesions. Diffuse crusted rash over forehead. Patient continues to scratch however likely 2/2 allergy to permethrin. Per son, patient's skin has been very dry and leathery since returning from rehab. Skin has improved markedly since hydrocortisone. Plan: - Hydrocortisone 1% topical - Wound care consulted, recs appreciated - Benadryl prn Hospital management: Lines: PIV Diet: NG Glucerna feeds, frequent meals dysphagia Bowel: senna prn GI prophylaxis: Famotidine 20mg IV DVT prophylaxis: SCDs Disposition: tele for IV abx CODE STATUS: FULL CODE This case was discussed with my attending physician, Dr. Dallas, and senior resident, Dr. Morton. Dylan Marroquin MD-PhD, PGY1 Attending Provider Attestation/Addendum Kerri Rankin, , attest that I was physically present for the montez portions of the service and evaluated the patient with the resident and I reviewed and discussed the case with the resident and agree with the resident's findings and plans of care as documented above Pt seen and evaluated this AM. Patient states she is feeling well, no complains. She stated I don't want a picc . Patient is at baseline and was able to eat her full breakfast this AM. Patient removed her NG tube overnight. Noted to have uptrending eosinophils. Will give solumedrol 40mg IV x1. Patient will need a repeat CBC in 1 week due to hypereosinophilia. Anticipate DC home with home health within 24-48h as she has been back at her baseline and afebrile.
--- NOTE | 2025-04-29 10:06 | ESPR_ITS ---
Documentation for date of: 04/29/25 Subjective Subjective Interval history: Patient seen and assessed at bedside. Complaining of itchy scalp this morning, denies any chest pain, shortness of breath, and palpitations. Vitals are stable with HR 54-65, no episodes of hypothermia overnight. Potassium 4.6, magnesium 2.4, bicarb slowly increasing (32.3 today). BUN 17. Exam Vital Signs Temp Pulse Resp BP Pulse Ox O2 Del Method O2 Flow Rate 96.8 F 56 L 19 109/66 98 Room Air 1 04/29/25 08:00 04/29/25 09:21 04/29/25 09:21 04/29/25 08:00 04/29/25 08:00 04/29/25 08:00 04/28/25 08:00 FiO2 62 04/28/25 00:00 Narrative Exam General: Awake and in no acute distress. Able to answer simple questions appropriately. Cachectic. HEENT: Normocephalic, atraumatic, mucous membranes dry. Missing upper and bottom teeth. NG tube in place. Heart: Regular rate and rhythm, normal S1 and S2, 4/5 systolic murmur radiating to carotids. Lungs: Mild coarse breath sounds in all lobes, much improved. Abdomen: Soft, nondistended, nontender, positive bowel sounds. No guarding or rebound tenderness. Neurologic: Alert and oriented x1. Strength 5/5 in bilateral upper extremities but R>L. Extremities: No edema. Left foot transmetatarsal amputation. Right foot second digit amputation. Skin: No rash or ecchymoses. Tinea capitis at frontal scalp. Petechial lesions bilateral lower extremities. Very dry skin. Objective Labs 04/29/25 05:20 04/29/25 05:20 Labs: Laboratory Results - last 24 hr 04/29/25 05:20 WBC 6.7 RBC 3.31 L Hgb 8.9 L Hct 28.5 L MCV 86 MCH 26.9 MCHC 31.2 RDW Std Deviation 59.7 H Plt Count 366 Neut % (Auto) 48 Lymph % (Auto) 18 [place] % (Auto) 7 Eos % (Auto) 26 H Baso % (Auto) 1 Neut # (Auto) 3.2 Lymph # (Auto) 1.2 [place] # (Auto) 0.5 Eos # (Auto) 1.7 H Baso # (Auto) 0.1 Immature Gran # (Auto) 0.01 H Absolute Nucleated RBC 0.00 Immature Gran % 0 Nucleated RBC % 0 Sodium 145 Potassium 4.6 Chloride 107 Carbon Dioxide 32.2 H Anion Gap 6 L BUN 17 Creatinine 0.4 L Estim Creat Clear Calc 120.8 eGFR > 60 BUN/Creatinine Ratio 43 H Glucose 132 H Calculated Osmolality 292 Calcium 7.9 L Corrected Calcium 8.7 Phosphorus 3.5 Magnesium 2.4 Total Bilirubin 0.3 AST 28 ALT 24 Alkaline Phosphatase 103 Total Protein 5.1 L Albumin 3.0 L Globulin 2.1 L Albumin/Globulin Ratio 1.4 ABG Interpretation ABG results: 04/11/25 04/14/25 04/18/25 21:53 23:37 08:00 ABG pH 7.29 L 7.47 H ABG pCO2 53 H 30 L ABG pO2 90 61 L ABG HCO3 25 21 ABG O2 Saturation 97 94 ABG Base Excess -2 -2 VBG pH 7.36 VBG pCO2 31 L VBG pO2 108 H VBG Base Excess -7 L 04/26/25 04/26/25 20:13 23:17 ABG pH 7.39 7.41 ABG pCO2 55 H 52 H ABG pO2 55 L* 117 H D ABG HCO3 33 H 33 H ABG O2 Saturation 88 L 99 H ABG Base Excess 7 H 7 H VBG pH VBG pCO2 VBG pO2 VBG Base Excess Quality Measures Quality Measures VTE prophylaxis Advance care planning discussed with:: other Assessment & Plan Assessment Current Active Medications: Generic Name Dose Route Start Last Admin Trade Name Mikq PRN Reason Stop Dose Admin Ascorbic Acid 500 mg 04/27/25 21:00 04/29/25 08:33 Ascorbic Acid 250 Mg Tablet PO 05/27/25 20:59 500 mg BID HARPER Administration Collagenase 0 gm 04/27/25 11:00 04/29/25 08:34 Collagenase Oint 30 Gm Tube TOP 05/27/25 10:59 1 applicatio QDAY HARPER Administration Dextrose 50 ml 04/12/25 00:08 04/26/25 00:10 Dextrose 50%-Water Inj 50 Ml Syringe IV 05/12/25 00:07 50 ml Q15MIN PRN Administration BG <50 OR BG <70 & pt unresponsive Famotidine 20 mg 04/29/25 10:00 Famotidine Inj 10 Mg/Ml Vial 2 Ml IVP 05/29/25 09:59 BID HARPER Folic Acid 1 mg 04/18/25 09:00 04/29/25 08:33 Folic Acid 1 Mg Tablet NG 05/18/25 08:59 1 mg QDAY HARPER Administration Glucagon 1 mg 04/12/25 00:08 Glucagon Inj 1 Mg Vial IM Q15MIN PRN BG <70, and no IV access Hydrocortisone 0 gm 04/19/25 11:30 04/29/25 08:34 Hydrocortisone Cr 1% 30 Gm Tube TOP 05/19/25 11:29 1 appln BID HARPER Administration Insulin Human Lispro 0 unit 04/23/25 07:40 04/29/25 05:51 Insulin Lispro (Admelog) 1 Unit/0.01 Ml Unit SC 05/16/25 17:59 Not Given Q6HR HARPER Protocol Levetiracetam 1,000 mg 04/12/25 21:00 04/29/25 08:32 Levetiracetam Inj 100 Mg/Ml Vial 5ml IVP 05/12/25 20:59 1,000 mg Q12HR HARPER Administration Magnesium Hydroxide 30 ml 04/22/25 07:45 04/24/25 22:10 Milk Of Magnesia Susp 30 Ml Udc PO 05/22/25 07:44 30 ml QDAY PRN Administration CONSTIPATION Protocol Multi-Ingredient Ointment 0 oz 04/12/25 12:30 04/29/25 08:34 Min Oil/Pet,White (Eucerin) Cr 16 Oz Btl TOP 05/12/25 12:29 1 appln DAILY HARPER Administration Multivitamins/Minerals 15 ml 04/20/25 09:00 04/29/25 08:32 Multivitamin 15 Ml Udc NG 05/20/25 08:59 15 ml QDAY HARPER Administration Ondansetron HCl 4 mg 04/11/25 22:23 Ondansetron Inj 2 Mg/Ml Inj 2 Ml IVP 05/11/25 22:22 Q6H PRN NAUSEA OR VOMITING Protocol Thiamine HCl 100 mg 04/18/25 09:00 04/29/25 08:33 Thiamine 100 Mg Tablet NG 05/18/25 08:59 100 mg QDAY HARPER Administration Zinc Sulfate 220 mg 04/28/25 09:00 04/29/25 08:35 Zinc Sulfate 220 Mg Capsule PO 05/11/25 08:59 220 mg QDAY HARPER Administration Plan Patient is a 69-year-old female with past medical history of CAD s/p CABG with history of previous multiple PCI, moderate aortic stenosis, CVA/stroke, seizure disorder with Keppra, essential hypertension, hyperlipidemia, baseline dementia, slurred speech, history of left transmetatarsal amputation with questionable PAD, history of fall with displaced intra-articular fracture of the left hip status post open reduction internal fixation in June 2024 was brought in to the emergency department of worsening altered mental status. Admitted to ICU for acute metabolic encephalopathy in setting of hypertonic hyponatremia and acute hypothermia. Cardiology consulted due to concern for cardiogenic shock given history of CAD and moderate aortic stenosis. #Distributive shock, likely septic or distributive, unlikely cardiogenic, resolved #Acute hypothermia, improving #Bradycardia secondary to first-degree heart block #History of aortic stenosis, moderate #History of hypertension #History CVA #History of CAD status post CABG with history of previous multiple PCI # HFpEF (EF 60 to 65%) with stage I diastolic dysfunction Home meds include lisinopril 10 mg daily, aspirin 81 mg daily, Plavix 75 mg daily. On physical exam, auscultated 4/5 ejection systolic murmur radiating to carotids. TSH were normal, A1c was 8.1% in lipid profile showed total cholesterol of 123, HDL of 48 and LDL of 53. Chest x-ray with questionable left-sided pneumonia secondary to aspiration. CT chest abdominal with altered showed small bilateral pleural effusions along with significant thickening of gastric mucosa and some constipation. TTE 06/23/2024 showed normal LV size and function. Mild LVH. Stage I diastolic dysfunction. Estimated EF 60-65%. Normal RV size and function. Moderate AV stenosis, mean gradient 21mmHg, vmax 3.1 m/s. Mild thicken MVL. Midl MR, AI. Trace TR. Bradycardia likely secondary to severe hypothermia. Heart rate now improved to 70s to 80s with conservative treatment of hypothermia. TTE 04/12/25 showed normal left ventricular size and function. Mild LVH. Stage I diastolic dysfunction. Estimated EF 60-65%. Normal RV size and function. RVSP 40 mmHg with RAP 3. Moderate AV stenosis, mean gradient 31 mmHg, vmax 3.7 to 3.8m/s. MELE 1 sq cm. Mild thicken MV leaflets. Mild MR, AI and TR. Compared to prior study of 06/24/24- increased velocities. EKG 04/14 shows sinus bradycardia with first-degree AV block, AL 234, QTc 439. Rapid response 04/27/25 for bradycardia with HR 40s overnight. No evidence of secondary or third degree AV block or any significant pauses on telemetry. QTc prolonged at 495 ms but QTcB was in normal range. Patient was asleep so bradycardia expected. Of note, patient was also hypothermic with temperature at 95F. HR improved next morning, in 50-70s. Patient does have intact chronotropic response. No clear indications for any permanent pacemaker placement at this present point of time. Plan: - Unlikely cardiogenic shock as patient only has moderate aortic stenosis with adequate flow. Likely distributive shock secondary to severe hypothermia or possible sepsis with underlying left lower lobe pneumonia. Patient was bradycardic along with hypotensive on admission which improved with rewarming with a Laverne hugger. - Even if the patient has severe aortic stenosis it is unlikely the patient will be a candidate for TAVR given his multiple comorbidities along with her severe protein calorie malnutrition and will not have good outcome as she is unable to do any kind of rehab. Can consider TAVR for her eventually if her overall clinical status improves over the next few months - Heart rate improving with Laverne hugger. As above, EKG shows first-degree AV block however patient remains asymptomatic with no long pauses noted and is therefore not a candidate for pacemaker placement at this time. - Recommend starting losartan 25 mg daily as patient is now on NG tube if BP permits as part of GDMT. - Avoid beta blockers as patient is already bradycardic ? Stable off Levophed and dopamine. Monitor BP. #Hypernatremia, resolved #Acute hypokalemia, resolved #Hypomagnesemia, resolved # Hypophosphatemia, resolved ##Hypocalcemia, resolved Presented with potassium of 2.4 and magnesium 1.1. Overnight given total potassium chloride 40 mEq, magnesium 2 g, calcium gluconate x1. 04/12/2025: Potassium improved to 4.7 at midnight. Calcium improved to 8.7, phosphorus 2.6, magnesium 2.3. ?Keep potassium above 4 and magnesium above 2 - Feeding via NG tube, adjust sodium content if any. #Acute on chronic normocytic anemia #Protein calorie malnutrition #Upper and lower extremity swelling Patient presented with altered mental status and acute metabolic encephalopathy, unclear etiology. Appears to have poor oral intake as the patient was also noted to have severely low albumin at 1.5 as well as total protein at 2.5. Hemoglobin 7.6. In setting of acute gastritis and severe malnutrition. BMI 19.6. 04/23/25: Swelling of hands and feet likely secondary to increased intake. - IV Lasix 20 or oral as needed for swelling - Strict I's and O's ? NG tube feeds as above. - Potential PEG tube placement per primary team, pending MBSS today - GI following - Workup per primary team #[id number] type 2 diabetes #Hx of LT foot metatrasal amputation and RT foot 2nd digit amputation A1c 8.1. Home meds include metformin 1000 mg twice daily. ?SSI per primary team #Acute encephalopathy in setting of #Hypotonic hyponatremia, severe #Left base PNA, possibly aspiration #Right upper lobe pulmonary nodules #Bilateral pleural effusions, small #Pancytopenia #Proctitis, likely acute #Seizure disorder #Hyperlipidemia #Constipation Vs. bowel ileus #Tinea Capitis #Nasal lesion, possibly basal cell carcinoma #Axillary lymphadenopathy #Baseline dementia #History of questionable PAD with transmetatarsal amputation and right toe amputation #COPD Thank you for your consultation, please do not hesitate to reach out if you have any question or concern Patient plan of care was discussed with the attending physician, Dr. Castellanos. Kenisha Marsh, PGY-1 Attending Provider Attestation/Addendum I have personally seen and examined the patient separately on the above date of service and discussed the plan of care with the resident. I reviewed the resident Dr. Kenisha Marsh consultation progress note and agree with the resident findings and plan in the note above and have also edited the documentation to reflect my findings and plan. Jose Castellanos M.D. Interventional Cardiology
[2025-04-29] MEDS: FAMOTIDINE INJ 10 MG/ML VIAL 2 ML 20 MG IVP ×2 (10:40→20:36)
[2025-04-29] MEDS: INSULIN LISPRO (AdmeLOG) 1 UNIT/0.01 ML UNIT SC ×3 (11:45→23:26)
--- NOTE | 2025-04-29 15:13 | PC.SS ---
Rounding note: d/c with TIM MCDANIELS tomorrow.
--- NOTE | 2025-04-29 18:33 | ESPR_ITS ---
Documentation for date of: 04/29/25 Subjective Subjective Interval history: Able to swallow and had a good breakfast but did not eat her lunch Discharge planning in progress At this point no need for any consideration for PEG placement Exam Vital Signs Temp Pulse Resp BP Pulse Ox O2 Del Method O2 Flow Rate 96.6 F L 54 L 17 138/67 H 98 Room Air 1 04/29/25 16:00 04/29/25 16:00 04/29/25 16:00 04/29/25 16:00 04/29/25 16:00 04/29/25 16:00 04/28/25 08:00 FiO2 62 04/28/25 00:00 Objective Labs 04/29/25 05:20 04/29/25 05:20 Labs: Laboratory Results - last 24 hr 04/29/25 05:20 WBC 6.7 RBC 3.31 L Hgb 8.9 L Hct 28.5 L MCV 86 MCH 26.9 MCHC 31.2 RDW Std Deviation 59.7 H Plt Count 366 Neut % (Auto) 48 Lymph % (Auto) 18 [place] % (Auto) 7 Eos % (Auto) 26 H Baso % (Auto) 1 Neut # (Auto) 3.2 Lymph # (Auto) 1.2 [place] # (Auto) 0.5 Eos # (Auto) 1.7 H Baso # (Auto) 0.1 Immature Gran # (Auto) 0.01 H Absolute Nucleated RBC 0.00 Immature Gran % 0 Nucleated RBC % 0 Sodium 145 Potassium 4.6 Chloride 107 Carbon Dioxide 32.2 H Anion Gap 6 L BUN 17 Creatinine 0.4 L Estim Creat Clear Calc 120.8 eGFR > 60 BUN/Creatinine Ratio 43 H Glucose 132 H Calculated Osmolality 292 Calcium 7.9 L Corrected Calcium 8.7 Phosphorus 3.5 Magnesium 2.4 Total Bilirubin 0.3 AST 28 ALT 24 Alkaline Phosphatase 103 Total Protein 5.1 L Albumin 3.0 L Globulin 2.1 L Albumin/Globulin Ratio 1.4 Impressions Impression: # Failure to thrive # Improving oral intake Continue current management ABG Interpretation ABG results: 04/11/25 04/14/25 04/18/25 21:53 23:37 08:00 ABG pH 7.29 L 7.47 H ABG pCO2 53 H 30 L ABG pO2 90 61 L ABG HCO3 25 21 ABG O2 Saturation 97 94 ABG Base Excess -2 -2 VBG pH 7.36 VBG pCO2 31 L VBG pO2 108 H VBG Base Excess -7 L 04/26/25 04/26/25 20:13 23:17 ABG pH 7.39 7.41 ABG pCO2 55 H 52 H ABG pO2 55 L* 117 H D ABG HCO3 33 H 33 H ABG O2 Saturation 88 L 99 H ABG Base Excess 7 H 7 H VBG pH VBG pCO2 VBG pO2 VBG Base Excess Assessment & Plan A&P Narrative Patient is a 69-year-old female with past medical history of CAD s/p CABG with history of previous multiple PCI, moderate aortic stenosis, CVA/stroke, seizure disorder with Keppra, essential hypertension, hyperlipidemia, baseline dementia, slurred speech, history of left transmetatarsal amputation with questionable PAD, history of fall with displaced intra-articular fracture of the left hip status post open reduction internal fixation in June 2024 was brought in to the emergency department of worsening altered mental status. Admitted to ICU for acute metabolic encephalopathy in setting of hypertonic hyponatremia and acute hypothermia. Cardiology consulted due to concern for cardiogenic shock given history of CAD and moderate aortic stenosis. #Distributive shock, likely septic or distributive, unlikely cardiogenic, resolved #Acute hypothermia, improving #Bradycardia secondary to first-degree heart block #History of aortic stenosis, moderate #History of hypertension #History CVA #History of CAD status post CABG with history of previous multiple PCI # HFpEF (EF 60 to 65%) with stage I diastolic dysfunction Home meds include lisinopril 10 mg daily, aspirin 81 mg daily, Plavix 75 mg daily. On physical exam, auscultated 4/5 ejection systolic murmur radiating to carotids. TSH were normal, A1c was 8.1% in lipid profile showed total cholesterol of 123, HDL of 48 and LDL of 53. Chest x-ray with questionable left-sided pneumonia secondary to aspiration. CT chest abdominal with altered showed small bilateral pleural effusions along with significant thickening of gastric mucosa and some constipation. TTE 06/23/2024 showed normal LV size and function. Mild LVH. Stage I diastolic dysfunction. Estimated EF 60-65%. Normal RV size and function. Moderate AV stenosis, mean gradient 21mmHg, vmax 3.1 m/s. Mild thicken MVL. Midl MR, AI. Trace TR. Bradycardia likely secondary to severe hypothermia. Heart rate now improved to 70s to 80s with conservative treatment of hypothermia. TTE 04/12/25 showed normal left ventricular size and function. Mild LVH. Stage I diastolic dysfunction. Estimated EF 60-65%. Normal RV size and function. RVSP 40 mmHg with RAP 3. Moderate AV stenosis, mean gradient 31 mmHg, vmax 3.7 to 3.8m/s. MELE 1 sq cm. Mild thicken MV leaflets. Mild MR, AI and TR. Compared to prior study of 06/24/24- increased velocities. EKG 04/14 shows sinus bradycardia with first-degree AV block, ME 234, QTc 439. Plan: - Unlikely cardiogenic shock as patient only has moderate aortic stenosis with adequate flow. Likely distributive shock secondary to severe hypothermia or possible sepsis with underlying left lower lobe pneumonia. Patient was bradycardic along with hypotensive on admission which improved with rewarming with a Laverne hugger. - Even if the patient has severe aortic stenosis it is unlikely the patient will be a candidate for TAVR given his multiple comorbidities along with her severe protein calorie malnutrition and will not have good outcome as she is unable to do any kind of rehab. Can consider TAVR for her eventually if her overall clinical status improves over the next few months - Heart rate improving with Laverne hugger. As above, EKG shows first-degree AV block however patient remains asymptomatic with no long pauses noted and is therefore not a candidate for pacemaker placement at this time. - Recommend starting losartan 25 mg daily as patient is now on NG tube if BP permits as part of GDMT. - Avoid beta blockers as patient is already bradycardic ? Stable off Levophed and dopamine. Monitor BP. 04/21/2025 Diuresed well over the last 24 hours with 20 mg IV Lasix 2600 mL urine output but intake was not accurately measured. Recommend strict input output Patient's BUN actually improved from 37 to 33 with the diuresis and creatinine is stable at 0.5 Potassium improved from 5.3-4.8. Magnesium slightly low at 1.8 Recommend to replace magnesium sulfate. Continue as needed Lasix 20 mg IV or oral or NG tube based on her weights and if patient continues to have leg swelling. Patient is still on NG tube feeds and primary team is discussing with the patient regarding PEG tube placement. GI team also following. Otherwise patient is hemodynamically stable and as noted previously patient needs to follow-up with cardiology and if her clinical status improves then we can plan for further workup for the patient otherwise at this point of time we will continue with medical treatment. Blood pressure is still soft and hold off on other medications at the present point of time and recommend to start with losartan 25 mg once daily when blood pressure is elevated. #Hypernatremia #Acute hypokalemia, resolved #Hypomagnesemia # Hypophosphatemia ##Hypocalcemia, resolved Presented with potassium of 2.4 and magnesium 1.1. Overnight given total potassium chloride 40 mEq, magnesium 2 g, calcium gluconate x1. 04/12/2025: Potassium improved to 4.7 at midnight. Calcium improved to 8.7, phosphorus 2.6, magnesium 2.3. ?Keep potassium above 4 and magnesium above 2 - Feeding via NG tube, adjust sodium content if any. #Acute on chronic normocytic anemia #Protein calorie malnutrition Patient presented with altered mental status and acute metabolic encephalopathy, unclear etiology. Appears to have poor oral intake as the patient was also noted to have severely low albumin at 1.5 as well as total protein at 2.5. Hemoglobin 7.6. In setting of acute gastritis and severe malnutrition. BMI 19.6. ? NG tube feeds as above - Workup per primary team #Kvq-ddgeysb-phjcpschn type 2 diabetes #Hx of LT foot metatrasal amputation and RT foot 2nd digit amputation A1c 8.1. Home meds include metformin 1000 mg twice daily. ?SSI per primary team #Acute encephalopathy in setting of #Hypotonic hyponatremia, severe #Left base PNA, possibly aspiration #Right upper lobe pulmonary nodules #Bilateral pleural effusions, small #Pancytopenia #Proctitis, likely acute #Seizure disorder #Hyperlipidemia #Constipation Vs. bowel ileus #Tinea Capitis #Nasal lesion, possibly basal cell carcinoma #Axillary lymphadenopathy #Baseline dementia #History of questionable PAD with transmetatarsal amputation and right toe amputation #COPD Time Spent With Patient Time: Total time spent is greater than 50% in coordination of care (as documented) at patient's floor/unit and/or counseling patient:
[2025-04-30] VITALS (9 sets, daily range): BP systolic 108–170; BP diastolic 58–83; PULSE 49–95; RESP 13–98; TEMP 35.3–35.9; O2SAT 98–100; BMI 22.9
[2025-04-30] MEDS: LOSARTAN POTASSIUM 25 MG TABLET PO ×2 (01:46→09:46)
[2025-04-30] MEDS: INSULIN LISPRO (AdmeLOG) 1 UNIT/0.01 ML UNIT SC ×2 (06:06→13:13)
[2025-04-30 06:27] LABS: Basophils # (Auto) 0.1 Thou/mm3 (0.0-0.2); Basophils % (Auto) 1 % (0-2.5); Eosinophils # (Auto) 0.5 Thou/mm3 (0.0-0.5); Eosinophils % (Auto) 11 % (0-10); Hematocrit 27.9 % (36.0-46.0); Immature Granulocytes Auto 0.03 Thou/mm3 (0.00-0.00); Lymphocytes # (Auto) 0.9 Thou/mm3 (1.0-4.8); Lymphocytes % (Auto) 21 % (10-50); Mean Corpuscular HGB Conc 31.5 g/dl (31.0-37.0); Mean Corpuscular Hemoglobin 27.0 pg (25.0-35.0); Mean Corpuscular Volume 86 fL (80-100); Monocytes # (Auto) 0.4 Thou/mm3 (0.0-0.8); Monocytes % (Auto) 10 % (0-12); Neutrophils # (Auto) 2.4 Thou/mm3 (1.8-7.7); Neutrophils % (Auto) 56 % (37-80); Nucleated Red Blood Cell # 0.00 Thou/mm3 (0.00-0.00); Nucleated Red Blood Cell % 0 /100 WBC (0); Platelet Count 336 Thou/mm3 (140-440); RDW Standard Deviation 58.3 fL (36.4-46.3); Red Blood Count 3.26 Miln/mm3 (4.00-5.20); White Blood Count 4.4 Thou/mm3 (3.6-11.0)
[2025-04-30 06:31] LABS: Hemoglobin 8.8 g/dL (12.0-16.0)
[2025-04-30 06:51] LABS: Alanine Aminotransferase 24 U/L (10-49); Albumin, Serum 3.2 gm/dL (3.4-4.8); Albumin/Globulin Ratio 1.5 (1.2-2.2); Alkaline Phosphatase 119 U/L (46-116); Anion Gap 8 (7-16); Aspartate Amino Transferase 26 U/L (0-34); BUN/Creatinine Ratio 40 Ratio (12-20); Bilirubin,Total 0.2 mg/dL (0.3-1.2); Blood Urea Nitrogen 20 mg/dL (9-23); Calcium 8.5 mg/dL (8.3-10.6); Calcium (Corrected) 9.1 mg/dL (8.5-10.1); Carbon Dioxide 29.7 mMol/L (20.0-31.0); Chloride 107 mMol/L (98-107); Creatinine (Component) 0.5 mg/dL (0.6-1.3); Estimated Creatinine Clearance 96.6 mL/min (>60); Globulin 2.2 gm/dL (2.3-3.5); Glucose 268 mg/dL (74-106); Magnesium 2.2 mg/dL (1.6-2.6); Osmolality,Calculated 300 (275-295); Phosphorous 2.9 mg/dL (2.4-5.1); Potassium 4.5 mMol/L (3.4-5.1); Sodium 145 mMol/L (136-145); Total Protein 5.4 gm/dL (5.7-8.2); eGFR > 60 See Note
[2025-04-30] MEDS: levETIRAcetam INJ 100 MG/ML VIAL 5ML 1000 MG IVP (09:44)
[2025-04-30] MEDS: COLLAGENASE OINT 30 GM TUBE TOP (09:45)
[2025-04-30] MEDS: MIN OIL/PET,WHITE (Eucerin) CR 16 OZ BTL TOP (09:45)
[2025-04-30] MEDS: Hydrocortisone Cr 1% 30 GM TUBE TOP (09:45)
[2025-04-30] MEDS: MULTIVITAMIN 15 ML UDC NG (09:46)
[2025-04-30] MEDS: ASCORBIC ACID 250 MG TABLET 500 MG PO (09:46)
[2025-04-30] MEDS: ZINC SULFATE 220 MG CAPSULE PO (09:46)
[2025-04-30] MEDS: FOLIC ACID 1 MG TABLET NG (09:46)
[2025-04-30] MEDS: THIAMINE 100 MG TABLET NG (09:46)
[2025-04-30] MEDS: FAMOTIDINE INJ 10 MG/ML VIAL 2 ML 20 MG IVP (09:47)
--- NOTE | 2025-04-30 09:59 | PC.SS ---
rounding note: Possible d/c home today with [facility] MCD[facility]ELS. No peg tube. Patient resides with son.
--- NOTE | 2025-04-30 10:00 | PC.SS ---
rounding note: Patient to d/c home today with Pino MCDANIELS.
--- NOTE | 2025-04-30 13:08 | ESDS_ITS ---
<Statement entered by Kerri Dallas DO - 05/01/25 17:12> I, Kerri Dallas DO, attest that I was physically present for the monte[place] portions of the service and evaluated the patient with the resident and I reviewed and discussed the case with the resident and agree with the resident's findings and plans of care as documented above <Statement entered by Keaton Baltazar MD - 05/01/25 16:53> I have reviewed the note and agree with the resident's assessment & plan with exceptions as below. I have personally reviewed labs, imaging, home meds/prior records, examined the patient, formulated and discussed management plan with my attending Patient was seen and examined bedside's morning. No acute overnight events. Patient had a prolonged hospital course due to multiple issues including shock secondary to pneumonia along with hypothermia and bradycardia and acute encephalopathy. Patient had a stay in the ICU due to septic shock and was downgraded to the medical floors when she was off vasopressors. While the hospital stay patient's temperature continued to drop and required to get a Laverne hugger intermittently in order to get her earlier body temperature within normal range. Patient also had to receive PPN as she was not safe to swallow as she had high risk of aspiration, but then an NG tube was placed and was transition to tube feeds given worsening swelling secondary to PPN. Patient's son was updated of all the hospital course throughout the patient's stay on the medical floors. During discussions for possible PEG tube due to patient having increased risk of aspiration of video fluoroscopic swallow study was done and speech therapy also was seeing the patient. At this time patient's clinical status at significantly improved and she was able to be transition back to p.o. diet. It was again reiterated to the son that she was still at risk given that she was still very weak, but that she could continue to feed orally if that was their decision and they stated that they understood the risk and decided to go with oral feeding at this time. Patient also was noted to have a rash throughout her body with excoriations since admission and patient's son stated that it was secondary to scabies treatment in the past therefore started hydrocortisone 1% which is seem to have improved patient's rash. Patient was also retaining some urine for the past 2 days prior to discharge. The son was made aware of this and he did not want a Juan catheter upon discharge therefore he was taught how to do straight cath if patient did not pee every 6 hours. At the time of discharge patient was stable enough to be discharged back home with home health. All questions were answered to the son at bedside and POLST form was signed with witness RN, Divya. Patient is full code as per son's wishes. Keaton Starkey Luis A Baltazar PGY2 Disclaimer: Even though this this note was dictated by speech recognition and even though it was carefully revised there may still be minor errors in stave bolt equalizer due to voice recognition software. Planned Discharge Date 04/30/25 DS: Providers Provider Date of admission: 04/11/25 22:23 Primary care physician: JENNIFER Zhang Admitting Provider: Erik Carroll MD Attending Provider on Admission: Kerri Dallas DO Consults: 04/11/25 22:00 Consult to Cardiology Routine Comment: Consulting Provider: Jose Castellanos 04/11/25 23:33 Referral Speech Therapy Routine Comment: Swallow eval 04/11/25 23:43 Referral Registered Dietitian Routine Comment: 04/12/25 07:33 Referral Wound Care Urgent Comment: 04/15/25 09:57 Consult to Pulmonology Routine Comment: worsening PNA Consulting Provider: Adriel Ayoub 04/19/25 10:59 Referral Wound Care Routine Comment: ezcema like skin findings 04/20/25 14:13 Referral Nutritional Services Routine Comment: DTI to left heel Referral Wound Care Routine Comment: DTI to left heel 04/21/25 15:11 Consult to Gastroenterology Routine Comment: Rectal wall thickening Consulting Provider: Ezequiel Lakhani 04/23/25 14:38 Referral Speech Therapy Routine Comment: 04/27/25 11:00 Referral Nutritional Services Routine Comment: Instructions: progression of coccyx from DTI to unstageable (Present on admission) Referral Wound Care Routine Comment: Instructions: progression of coccyx from DTI to unstageable (Present on admission) Attending Provider on DC: Kerri Dallas DO Discharging Provider: Kerri Dallas DO DS: Diagnosis Problem List Completed Was Problem List Reviewed/Reconciled?: Yes Hospital Course Hospital Course Hospital course: Summary: Jill Holden 69F pmhx significant for primary hypertension, NIDDM2, CAD s/p CABG, hx of CVA, seizure disorder, age-related dementia, left diabetic foot metatarsal amputation, right foot second digit amputation and COPD, who presented to [facility] ED on 04/11 for acute encephalopathy, hypothermia and bradycardia, initially admitted to ICU for distributive shock from L lung PNA requiring pressor support and downgraded to floors on 04/13, eventually weaned off TPN and nutrition through NG with vast improvement in mentation. Patient presented obtunded with AMS, BP 79/48 MAP 51-52, HR 46, temp 84.7, WBC 2.2. Directly admitted to ICU requiring dopamine and Levophed pressors. Eventually weaned off and downgraded 04/13. Per ICU, mentation improved since admission following broad spectrum abx and fluid resuscitation. BCx 1/2 bottles growing GPC. Repeat BCx NGTD and sputum Cx NGTD. Imaging as below. On downgrade, patient was continued on broad-spectrum antibiotics but still developed episodes of hypothermia, supplemented by Laverne hugger. Given that patient had no p.o. intake due to profound weakness, PPN was initiated from 04/15 to 04/18. Transition to NG tube feedings were made on 04/17 as patient's upper extremity was extremely swollen secondary to PPN. On 04/26, videofluoroscopic swallow study done which showed pharyngeal penetration and aspiration. Patient eventually weaned off NG tube feedings on 04/28 as patient began to increase p.o. intake. Initially, PEG tube placement was preferable per GI recommendations as patient had a high aspiration risk due to weakness however per son who is medical decision-maker opted against any interventional measures at this time. Furthermore, during hospital stay, patient was noted to be bradycardic during episodes of hypothermia to heart rate of 30s. Per cardiology, patient was also found to have moderate AV stenosis and is unlikely a good candidate for TAVR for or pac emaker for first degree AV block due to current poor condition. Initially hypothermic thought secondary to sepsis however patient continued to be hypothermic despite adequate antibiotics, improving mentation and and nutritional supplementation. Less likely hypothermia secondary to thermal dysregulation as patient has a history of CVA, seizure disorder and dementia as well as recovering from sepsis. Of note, on admission patient was noted to have diffuse excoriations as well as eczema-like skin lesions, initially thought to be scabies however prednisone patient is allergic to scabies treatment. Hydrocortisone was started and skin lesions greatly improved. Patient was also found to be retaining urine on 04/26, however patient continues to void on her own, thus intermittent straight catheterization is recommended for further home management. Also, patient was noted to have severe thrombocytopenia, requiring no intervention was monitored with eventual normalization. On discharge, sofy garcias is alert and oriented x 2, hemodynamically stable and ready to be discharged to home with home health. Before discharge, all questions from family members were answered and verbalized understanding. Imaging: CT Head no acute processes. CTAP showed L base PNA, consider aspiration PNA, R upper lobe pulmonary nodules, multiple subcentimeter axillary lymph nodes, small b/l pleural effusions, significant thickening of gastric mucosa, abundant stool in rectosigmoid but no bowel obstruction, rectal wall thickening, consider proctitis, severe osteopenia. Liver ultrasound shows normal gallbladder, normal blood, bile duct, mild hepatomegaly, partial visualization of right pleural fluid 04/12 TTE: Normal left ventricular size and function. Mild LVH. Stage I diastolic dysfunction. Estimated EF 60-65%. Normal RV size and function. RVSP 40 mmHg with RAP 3. Moderate AV stenosis, mean gradient 31 mmHg, vmax 3.7 to 3.8m/s. MELE 1 sq cm. Mild thickened MV leaflets. Mild MR, AI and TR. Compared to prior study of 06/24/24- increased velocities. Discharge Recommendations: - Please take all medications as prescribed - START losartan 25 mg daily, please hold if your systolic blood pressures less than 120. - START folic acid 1 mg daily and thiamine 100 mg daily - START hydrocortisone ointment 1% as needed for rash - STOP lisinopril 10 mg - HOLD metoprolol until you see your PCP - Continue all home medications except as above - Please follow up with your PCP within one week of discharge - If your symptoms worsen, please seek immediate medical attention and return to your nearest emergency room. - If you do not have a PCP, you may follow up at the [facility] at [address] [place] [address] [address], [facility] [address], Hospital Diagnoses: ##L Base PNA, likely aspiration with gram-negative versus anaerobic bacteria #Staphylococcus aureus bacteremia #Acute infectious encephalopathy #Distributive shock, resolved #Dysphagia #Hypothermia, improving #Urinary retention #Severe thrombocytopenia, resolved #Anemia of chronic disease, stable #R upper lobe pulmonary nodules #Multiple subcentimeter axillary lymph nodes #Rectal wall thickening #Bradycardia 2/2 first degree AV block -improved #Moderate aortic stenosis #Essential HTN #Electrolyte abnormalities #Hypernatremia #Hypokalemia, resolved #Hyperchloremia #Hypobicarbinemia, improving #Hypophosphatemia, resolved #Hypomagnesemia, resolved #Hypocalcemia, resolved #NIDDM2 #Hx of L diabetic foot tarsal amputation #Hx of osteomyelitis of R foot distal fourth metatarsal and proximal phalanx fourth digit #Hx of R big toe abscess s/p I&D of R big toe and 2nd toe amputation (12/04/24) #Hx of seizures #Diffuse excoriations, improved #Atopic dermatitis Plan of care discussed with attending Dr. Dallas, and PGY-2 Dr. Gunn. Linda Marsh, DO Internal Medicine, PGY-1 Time Spent with Patient Time attestation: Total time spent providing and/or coordinating discharge services: Time spent: Greater than 30 minutes Exam Vital Signs Temp Pulse Resp BP Pulse Ox O2 Del Method O2 Flow Rate 96.6 F L 54 L 17 121/61 98 Room Air 1 04/30/25 12:00 04/30/25 12:00 04/30/25 12:00 04/30/25 12:00 04/30/25 12:00 04/30/25 12:00 04/28/25 08:00 FiO2 62 04/28/25 00:00 Narrative Exam GENERAL: no acute distress, AOx2 to person and place HEENT: mucous membranes dry, bilateral sclera anicteric, crusted lips, seborrheic dermatitis CARDIOVASCULAR: regular rate and rhythm, 4/6 systolic ejection murmur PULMONARY: CTAB ABDOMINAL: soft, non-tender, non-distended, no rebound/guarding, bowel sounds present, mild suprapubic TTP EXTREMITIES: 1+ pitting edema bilateral thighs, L foot tarsal amputation, R foot 2nd digit amputation, LUE swelling SKIN: warm and dry, widespread improved rash, dermatitis much improved NEURO: CN II-XII grossly intact, able to follow instructions Discharge Plan Plan Patient Disposition: Home w/HOME HEALTH Patient condition on transfer: Stable Care Plan Goals: Please follow-up primary care physician within 2 or 3 days upon discharge Please follow-up with your senior software architect within 5 to 7 days upon discharge Recommend repeat CBC to monitor eosinophils as well as platelets. Recommend outpatient dermatology follow-up Recommend straight in and out catheter for urinary retention as needed Recommend outpatient urology referral We have started you on losartan 25 mg daily, please hold if your systolic blood pressures less than 120. We have started you on folic acid 1 mg tablet daily and thiamine 100 mg daily. We have prescribed hydrocortisone twice daily as needed for worsening rash. We have held your isosorbide and metoprolol until you follow-up with your primary care physician or senior software architect. We have stopped your lisinopril 10 mg Continue taking your other home medications as prescribed Please come back to the ED if symptoms persist or worsen. Prescriptions/Referrals Prescriptions/Med Rec: New thiamine HCl (vitamin B1) 100 mg tablet 100 mg PO QDAY Qty: 30 0RF losartan 25 mg tablet 25 mg PO QDAY Qty: 30 0RF Rx Instructions: Hold if systolic blood pressure is less than 120. folic acid 1 mg tablet 1 mg PO QDAY Qty: 30 0RF hydrocortisone 1 % cream in packet 1 applic topical BID PRN (Reason: rash) Qty: 144 0RF Continued clopidogrel [Plavix] 75 mg Tablet 75 mg PO QDAY aspirin 81 mg tablet,delayed release (DR/EC) 81 mg PO QAM Patient Comments: TAKE ONE TABLET BY MOUTH EVERY DAY IN THE MORNING acetaminophen 500 mg capsule 1,000 mg PO Q6H PRN (Reason: fever or pain) Qty: 30 0RF levetiracetam 1,000 mg tablet 1,000 mg PO BID Qty: 60 0RF metformin 1,000 mg tablet 1,000 mg PO BID Qty: 60 0RF Held isosorbide mononitrate 60 mg Tablet Extended Release 24 Hr 60 mg PO QDAY Hold Instructions: Resume on 05/07/25. until you follow up with your primary care physician or senior software architect metoprolol succinate 50 mg capsule,sprinkle,ER 24hr 50 mg PO QDAY Qty: 30 0RF Hold Instructions: Resume on 05/07/25. until follow up with primary care physician or senior software architect Discontinued lisinopril 10 mg tablet 10 mg PO QDAY 30 Days Qty: 30 2RF Referrals: Jose Castellanos MD [Referring Provider, Cardiology] Jose Angel Reyes FNP [Primary Care Provider] Patient/Caregiver Discharge Instructions Other Discharge Activity Instructions:: Please follow-up primary care physician within 2 or 3 days upon discharge Please follow-up with your senior software architect within 5 to 7 days upon discharge Recommend repeat CBC to monitor eosinophils as well as platelets. Recommend outpatient dermatology follow-up Recommend straight in and out catheter for urinary retention as needed Recommend outpatient urology referral We have started you on losartan 25 mg daily, please hold if your systolic blood pressures less than 120. We have started you on folic acid 1 mg tablet daily and thiamine 100 mg daily. We have prescribed hydrocortisone twice daily as needed for worsening rash. We have held your isosorbide and metoprolol until you follow-up with your primary care physician or senior software architect. We have stopped your lisinopril 10 mg Continue taking your other home medications as prescribed Please come back to the ED if symptoms persist or worsen. Education Materials: Preventing Pneumonia, Preventing Common Respiratory ... Print Language: Danish Stand Alone Forms: Duyen Award Info., Patient Portal Info Letter Discharge Order Discharge Orders: Discharge (Routine); Ordered 04/30/25 Ordered By: Keaton Baltazar Quality Discharge Quality Measures VTE prophylaxis
--- NOTE | 2025-04-30 13:19 | PD.RESPRO ---
Documentation for date of: 04/30/25 Subjective Subjective Interval history: Patient seen and assessed at bedside. No new complaints this morning. HR decreased to 56 overnight, temperature 96.2. Continues to have prolonged UT on telemetry, patient is bedbound and otherwise asymptomatic. Hgb 8.8. Potassium 4.4, magnesium 2.2. Bicarb improved to 29.7. Exam Vital Signs Temp Pulse Resp BP Pulse Ox O2 Del Method O2 Flow Rate 96.6 F L 54 L 17 121/61 98 Room Air 1 04/30/25 12:00 04/30/25 12:00 04/30/25 12:00 04/30/25 12:00 04/30/25 12:00 04/30/25 12:00 04/28/25 08:00 FiO2 62 04/28/25 00:00 Narrative Exam General: Awake and in no acute distress. Able to answer simple questions appropriately. Cachectic. HEENT: Normocephalic, atraumatic, mucous membranes dry. Missing upper and bottom teeth. Heart: Regular rate and rhythm, normal S1 and S2, 4/5 systolic murmur radiating to carotids. Lungs: Mild coarse breath sounds in all lobes, much improved. Abdomen: Soft, nondistended, nontender, positive bowel sounds. No guarding or rebound tenderness. Neurologic: Alert and oriented x1. Strength 5/5 in bilateral upper extremities but R>L. Extremities: No edema. Left foot transmetatarsal amputation. Right foot second digit amputation. Skin: No rash or ecchymoses. Tinea capitis at frontal scalp. Petechial lesions bilateral lower extremities. Very dry skin. Objective Labs 04/30/25 06:02 04/30/25 06:02 Labs: Laboratory Results - last 24 hr 04/30/25 06:02 WBC 4.4 RBC 3.26 L Hgb 8.8 L Hct 27.9 L MCV 86 MCH 27.0 MCHC 31.5 RDW Std Deviation 58.3 H Plt Count 336 D Neut % (Auto) 56 Lymph % (Auto) 21 [place] % (Auto) 10 Eos % (Auto) 11 H Baso % (Auto) 1 Neut # (Auto) 2.4 Lymph # (Auto) 0.9 L [place] # (Auto) 0.4 Eos # (Auto) 0.5 Baso # (Auto) 0.1 Immature Gran # (Auto) 0.03 H Absolute Nucleated RBC 0.00 Immature Gran % 1 H Nucleated RBC % 0 Sodium 145 Potassium 4.5 Chloride 107 Carbon Dioxide 29.7 Anion Gap 8 BUN 20 Creatinine 0.5 L Estim Creat Clear Calc 96.6 eGFR > 60 BUN/Creatinine Ratio 40 H Glucose 268 H D Calculated Osmolality 300 H Calcium 8.5 Corrected Calcium 9.1 Phosphorus 2.9 Magnesium 2.2 Total Bilirubin 0.2 L AST 26 ALT 24 Alkaline Phosphatase 119 H Total Protein 5.4 L Albumin 3.2 L Globulin 2.2 L Albumin/Globulin Ratio 1.5 ABG Interpretation ABG results: 04/11/25 04/14/25 04/18/25 21:53 23:37 08:00 ABG pH 7.29 L 7.47 H ABG pCO2 53 H 30 L ABG pO2 90 61 L ABG HCO3 25 21 ABG O2 Saturation 97 94 ABG Base Excess -2 -2 VBG pH 7.36 VBG pCO2 31 L VBG pO2 108 H VBG Base Excess -7 L 04/26/25 04/26/25 20:13 23:17 ABG pH 7.39 7.41 ABG pCO2 55 H 52 H ABG pO2 55 L* 117 H D ABG HCO3 33 H 33 H ABG O2 Saturation 88 L 99 H ABG Base Excess 7 H 7 H VBG pH VBG pCO2 VBG pO2 VBG Base Excess Quality Measures Quality Measures VTE prophylaxis Advance care planning discussed with:: other Assessment & Plan Assessment Current Active Medications: Generic Name Dose Route Start Last Admin Trade Name Mikq PRN Reason Stop Dose Admin Ascorbic Acid 500 mg 04/27/25 21:00 04/30/25 09:46 Ascorbic Acid 250 Mg Tablet PO 05/27/25 20:59 500 mg BID HARPER Administration Collagenase 0 gm 04/27/25 11:00 04/30/25 09:45 Collagenase Oint 30 Gm Tube TOP 05/27/25 10:59 1 applicatio QDAY HARPER Administration Dextrose 50 ml 04/12/25 00:08 04/26/25 00:10 Dextrose 50%-Water Inj 50 Ml Syringe IV 05/12/25 00:07 50 ml Q15MIN PRN Administration BG <50 OR BG <70 & pt unresponsive Famotidine 20 mg 04/29/25 10:00 04/30/25 09:47 Famotidine Inj 10 Mg/Ml Vial 2 Ml IVP 05/29/25 09:59 20 mg BID HARPER Administration Folic Acid 1 mg 04/18/25 09:00 04/30/25 09:46 Folic Acid 1 Mg Tablet NG 05/18/25 08:59 1 mg QDAY HARPER Administration Glucagon 1 mg 04/12/25 00:08 Glucagon Inj 1 Mg Vial IM Q15MIN PRN BG <70, and no IV access Hydrocortisone 0 gm 04/19/25 11:30 04/30/25 09:45 Hydrocortisone Cr 1% 30 Gm Tube TOP 05/19/25 11:29 1 appln BID HARPER Administration Insulin Human Lispro 0 unit 04/23/25 07:40 04/30/25 13:13 Insulin Lispro (Admelog) 1 Unit/0.01 Ml Unit SC 05/16/25 17:59 4 unit Q6HR HARPER Administration Protocol Levetiracetam 1,000 mg 04/12/25 21:00 04/30/25 09:44 Levetiracetam Inj 100 Mg/Ml Vial 5ml IVP 05/12/25 20:59 1,000 mg Q12HR HARPER Administration Losartan Potassium 25 mg 04/30/25 01:35 04/30/25 09:46 Losartan Potassium 25 Mg Tablet PO 05/30/25 01:34 25 mg QDAY HARPER Administration Magnesium Hydroxide 30 ml 04/22/25 07:45 04/24/25 22:10 Milk Of Magnesia Susp 30 Ml Udc PO 05/22/25 07:44 30 ml QDAY PRN Administration CONSTIPATION Protocol Multi-Ingredient Ointment 0 oz 04/12/25 12:30 04/30/25 09:45 Min Oil/Pet,White (Eucerin) Cr 16 Oz Btl TOP 05/12/25 12:29 1 appln DAILY HARPER Administration Multivitamins/Minerals 15 ml 04/20/25 09:00 04/30/25 09:46 Multivitamin 15 Ml Udc NG 05/20/25 08:59 15 ml QDAY HARPER Administration Ondansetron HCl 4 mg 04/11/25 22:23 Ondansetron Inj 2 Mg/Ml Inj 2 Ml IVP 05/11/25 22:22 Q6H PRN NAUSEA OR VOMITING Protocol Thiamine HCl 100 mg 04/18/25 09:00 04/30/25 09:46 Thiamine 100 Mg Tablet NG 05/18/25 08:59 100 mg QDAY HARPER Administration Zinc Sulfate 220 mg 04/28/25 09:00 04/30/25 09:46 Zinc Sulfate 220 Mg Capsule PO 05/11/25 08:59 220 mg QDAY HARPER Administration Plan Patient is a 69-year-old female with past medical history of CAD s/p CABG with history of previous multiple PCI, moderate aortic stenosis, CVA/stroke, seizure disorder with Keppra, essential hypertension, hyperlipidemia, baseline dementia, slurred speech, history of left transmetatarsal amputation with questionable PAD, history of fall with displaced intra-articular fracture of the left hip status post open reduction internal fixation in June 2024 was brought in to the emergency department of worsening altered mental status. Admitted to ICU for acute metabolic encephalopathy in setting of hypertonic hyponatremia and acute hypothermia. Cardiology consulted due to concern for cardiogenic shock given history of CAD and moderate aortic stenosis. #Distributive shock, likely septic or distributive, unlikely cardiogenic, resolved #Acute hypothermia, improving #Bradycardia secondary to first-degree heart block #History of aortic stenosis, moderate #History of hypertension #History CVA #History of CAD status post CABG with history of previous multiple PCI # HFpEF (EF 60 to 65%) with stage I diastolic dysfunction Home meds include lisinopril 10 mg daily, aspirin 81 mg daily, Plavix 75 mg daily. On physical exam, auscultated 4/5 ejection systolic murmur radiating to carotids. TSH were normal, A1c was 8.1% in lipid profile showed total cholesterol of 123, HDL of 48 and LDL of 53. Chest x-ray with questionable left-sided pneumonia secondary to aspiration. CT chest abdominal with altered showed small bilateral pleural effusions along with significant thickening of gastric mucosa and some constipation. TTE 06/23/2024 showed normal LV size and function. Mild LVH. Stage I diastolic dysfunction. Estimated EF 60-65%. Normal RV size and function. Moderate AV stenosis, mean gradient 21mmHg, vmax 3.1 m/s. Mild thicken MVL. Midl MR, AI. Trace TR. Bradycardia likely secondary to severe hypothermia. Heart rate now improved to 70s to 80s with conservative treatment of hypothermia. TTE 04/12/25 showed normal left ventricular size and function. Mild LVH. Stage I diastolic dysfunction. Estimated EF 60-65%. Normal RV size and function. RVSP 40 mmHg with RAP 3. Moderate AV stenosis, mean gradient 31 mmHg, vmax 3.7 to 3.8m/s. MELE 1 sq cm. Mild thicken MV leaflets. Mild MR, AI and TR. Compared to prior study of 06/24/24- increased velocities. EKG 04/14 shows sinus bradycardia with first-degree AV block, UT 234, QTc 439. Rapid response 04/27/25 for bradycardia with HR 40s overnight. No evidence of secondary or third degree AV block or any significant pauses on telemetry. QTc prolonged at 495 ms but QTcB was in normal range. Patient was asleep so bradycardia expected. Of note, patient was also hypothermic with temperature at 95F. HR improved next morning, in 50-70s. Patient does have intact chronotropic response. No clear indications for any permanent pacemaker placement at this present point of time. Plan: - Unlikely cardiogenic shock as patient only has moderate aortic stenosis with adequate flow. Likely distributive shock secondary to severe hypothermia or possible sepsis with underlying left lower lobe pneumonia. Patient was bradycardic along with hypotensive on admission which improved with rewarming with a Laverne hugger. - Even if the patient has severe aortic stenosis it is unlikely the patient will be a candidate for TAVR given his multiple comorbidities along with her severe protein calorie malnutrition and will not have good outcome as she is unable to do any kind of rehab. Can consider TAVR for her eventually if her overall clinical status improves over the next few months - Heart rate improving with Laverne hugger. As above, EKG shows first-degree AV block however patient remains asymptomatic with no long pauses noted and is therefore not a candidate for pacemaker placement at this time. - Recommend starting losartan 25 mg daily if BP permits as part of GDMT. - Avoid beta blockers as patient is already bradycardic #Hypernatremia, resolved #Acute hypokalemia, resolved #Hypomagnesemia, resolved # Hypophosphatemia, resolved ##Hypocalcemia, resolved Presented with potassium of 2.4 and magnesium 1.1. Overnight given total potassium chloride 40 mEq, magnesium 2 g, calcium gluconate x1. 04/12/2025: Potassium improved to 4.7 at midnight. Calcium improved to 8.7, phosphorus 2.6, magnesium 2.3. ?Keep potassium above 4 and magnesium above 2 - Tolerating oral feeds #Acute on chronic normocytic anemia #Protein calorie malnutrition #Upper and lower extremity swelling Patient presented with altered mental status and acute metabolic encephalopathy, unclear etiology. Appears to have poor oral intake as the patient was also noted to have severely low albumin at 1.5 as well as total protein at 2.5. Hemoglobin 7.6. In setting of acute gastritis and severe malnutrition. BMI 19.6. 04/23/25: Swelling of hands and feet likely secondary to increased intake. - IV Lasix 20 or oral as needed for swelling - Strict I's and O's ? NG tube feeds as above. - Potential PEG tube placement per primary team, pending MBSS today - GI following - Workup per primary team #[id number] type 2 diabetes #Hx of LT foot metatrasal amputation and RT foot 2nd digit amputation A1c 8.1. Home meds include metformin 1000 mg twice daily. ?SSI per primary team #Acute encephalopathy in setting of #Hypotonic hyponatremia, severe #Left base PNA, possibly aspiration #Right upper lobe pulmonary nodules #Bilateral pleural effusions, small #Pancytopenia #Proctitis, likely acute #Seizure disorder #Hyperlipidemia #Constipation Vs. bowel ileus #Tinea Capitis #Nasal lesion, possibly basal cell carcinoma #Axillary lymphadenopathy #Baseline dementia #History of questionable PAD with transmetatarsal amputation and right toe amputation #COPD Thank you for your consultation, please do not hesitate to reach out if you have any question or concern Patient plan of care was discussed with the attending physician, Dr. Castellanos. Kenisha Marsh DO, PGY-1 Attending Provider Attestation/Addendum I have personally seen and examined the patient separately on the above date of service and discussed the plan of care with the resident. I reviewed the resident Dr. Keinsha Marsh consultation progress note and agree with the resident findings and plan in the note above and have also edited the documentation to reflect my findings and plan. Jose Castellanos M.D. Interventional Cardiology
--- NOTE | 2025-04-30 13:56 | PC.SS ---
Addendum entered by Daniela Zee 04/30/25 16:22: EMS ETA scheduled for 1800. Addendum entered by Daniela Zee 04/30/25 14:20: TEJAS Stokes confirmed address with family: [address] [place] [address]. 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 KAN contacted [facility] and spoke to Suzie to schedule transportation. Reference Number is [id number].
--- NOTE | 2025-04-30 18:47 | ESPR_ITS ---
Documentation for date of: 04/30/25 Subjective Subjective Interval history: Late entry for the note able to tolerate p.o. diet Exam Vital Signs Temp Pulse Resp BP Pulse Ox O2 Del Method O2 Flow Rate 96.6 F L 67 17 108/58 L 98 Room Air 1 04/30/25 16:00 04/30/25 17:49 04/30/25 17:49 04/30/25 16:00 04/30/25 17:49 04/30/25 16:00 04/28/25 08:00 FiO2 62 04/28/25 00:00 Objective Labs 04/30/25 06:02 04/30/25 06:02 Labs: Laboratory Results - last 24 hr 04/30/25 06:02 WBC 4.4 RBC 3.26 L Hgb 8.8 L Hct 27.9 L MCV 86 MCH 27.0 MCHC 31.5 RDW Std Deviation 58.3 H Plt Count 336 D Neut % (Auto) 56 Lymph % (Auto) 21 [place] % (Auto) 10 Eos % (Auto) 11 H Baso % (Auto) 1 Neut # (Auto) 2.4 Lymph # (Auto) 0.9 L [place] # (Auto) 0.4 Eos # (Auto) 0.5 Baso # (Auto) 0.1 Immature Gran # (Auto) 0.03 H Absolute Nucleated RBC 0.00 Immature Gran % 1 H Nucleated RBC % 0 Sodium 145 Potassium 4.5 Chloride 107 Carbon Dioxide 29.7 Anion Gap 8 BUN 20 Creatinine 0.5 L Estim Creat Clear Calc 96.6 eGFR > 60 BUN/Creatinine Ratio 40 H Glucose 268 H D Calculated Osmolality 300 H Calcium 8.5 Corrected Calcium 9.1 Phosphorus 2.9 Magnesium 2.2 Total Bilirubin 0.2 L AST 26 ALT 24 Alkaline Phosphatase 119 H Total Protein 5.4 L Albumin 3.2 L Globulin 2.2 L Albumin/Globulin Ratio 1.5 Impressions Impression: Failure to thrive tolerating p.o. diet Agree with discharge planning ABG Interpretation ABG results: 04/11/25 04/14/25 04/18/25 21:53 23:37 08:00 ABG pH 7.29 L 7.47 H ABG pCO2 53 H 30 L ABG pO2 90 61 L ABG HCO3 25 21 ABG O2 Saturation 97 94 ABG Base Excess -2 -2 VBG pH 7.36 VBG pCO2 31 L VBG pO2 108 H VBG Base Excess -7 L 04/26/25 04/26/25 20:13 23:17 ABG pH 7.39 7.41 ABG pCO2 55 H 52 H ABG pO2 55 L* 117 H D ABG HCO3 33 H 33 H ABG O2 Saturation 88 L 99 H ABG Base Excess 7 H 7 H VBG pH VBG pCO2 VBG pO2 VBG Base Excess Assessment & Plan A&P Narrative Patient is a 69-year-old female with past medical history of CAD s/p CABG with history of previous multiple PCI, moderate aortic stenosis, CVA/stroke, seizure disorder with Keppra, essential hypertension, hyperlipidemia, baseline dementia, slurred speech, history of left transmetatarsal amputation with questionable PAD, history of fall with displaced intra-articular fracture of the left hip status post open reduction internal fixation in June 2024 was brought in to the emergency department of worsening altered mental status. Admitted to ICU for acute metabolic encephalopathy in setting of hypertonic hyponatremia and acute hypothermia. Cardiology consulted due to concern for cardiogenic shock given history of CAD and moderate aortic stenosis. #Distributive shock, likely septic or distributive, unlikely cardiogenic, resolved #Acute hypothermia, improving #Bradycardia secondary to first-degree heart block #History of aortic stenosis, moderate #History of hypertension #History CVA #History of CAD status post CABG with history of previous multiple PCI # HFpEF (EF 60 to 65%) with stage I diastolic dysfunction Home meds include lisinopril 10 mg daily, aspirin 81 mg daily, Plavix 75 mg daily. On physical exam, auscultated 4/5 ejection systolic murmur radiating to carotids. TSH were normal, A1c was 8.1% in lipid profile showed total cholesterol of 123, HDL of 48 and LDL of 53. Chest x-ray with questionable left-sided pneumonia secondary to aspiration. CT chest abdominal with altered showed small bilateral pleural effusions along with significant thickening of gastric mucosa and some constipation. TTE 06/23/2024 showed normal LV size and function. Mild LVH. Stage I diastolic dysfunction. Estimated EF 60-65%. Normal RV size and function. Moderate AV stenosis, mean gradient 21mmHg, vmax 3.1 m/s. Mild thicken MVL. Midl MR, AI. Trace TR. Bradycardia likely secondary to severe hypothermia. Heart rate now improved to 70s to 80s with conservative treatment of hypothermia. TTE 04/12/25 showed normal left ventricular size and function. Mild LVH. Stage I diastolic dysfunction. Estimated EF 60-65%. Normal RV size and function. RVSP 40 mmHg with RAP 3. Moderate AV stenosis, mean gradient 31 mmHg, vmax 3.7 to 3.8m/s. MELE 1 sq cm. Mild thicken MV leaflets. Mild MR, AI and TR. Compared to prior study of 06/24/24- increased velocities. EKG 04/14 shows sinus bradycardia with first-degree AV block, [place] 234, QTc 439. Plan: - Unlikely cardiogenic shock as patient only has moderate aortic stenosis with adequate flow. Likely distributive shock secondary to severe hypothermia or possible sepsis with underlying left lower lobe pneumonia. Patient was bradycardic along with hypotensive on admission which improved with rewarming with a Laverne hugger. - Even if the patient has severe aortic stenosis it is unlikely the patient will be a candidate for TAVR given his multiple comorbidities along with her severe protein calorie malnutrition and will not have good outcome as she is unable to do any kind of rehab. Can consider TAVR for her eventually if her overall clinical status improves over the next few months - Heart rate improving with Laverne hugger. As above, EKG shows first-degree AV block however patient remains asymptomatic with no long pauses noted and is therefore not a candidate for pacemaker placement at this time. - Recommend starting losartan 25 mg daily as patient is now on NG tube if BP permits as part of GDMT. - Avoid beta blockers as patient is already bradycardic ? Stable off Levophed and dopamine. Monitor BP. 04/21/2025 Diuresed well over the last 24 hours with 20 mg IV Lasix 2600 mL urine output but intake was not accurately measured. Recommend strict input output Patient's BUN actually improved from 37 to 33 with the diuresis and creatinine is stable at 0.5 Potassium improved from 5.3-4.8. Magnesium slightly low at 1.8 Recommend to replace magnesium sulfate. Continue as needed Lasix 20 mg IV or oral or NG tube based on her weights and if patient continues to have leg swelling. Patient is still on NG tube feeds and primary team is discussing with the patient regarding PEG tube placement. GI team also following. Otherwise patient is hemodynamically stable and as noted previously patient needs to follow-up with cardiology and if her clinical status improves then we can plan for further workup for the patient otherwise at this point of time we will continue with medical treatment. Blood pressure is still soft and hold off on other medications at the present point of time and recommend to start with losartan 25 mg once daily when blood pressure is elevated. #Hypernatremia #Acute hypokalemia, resolved #Hypomagnesemia # Hypophosphatemia ##Hypocalcemia, resolved Presented with potassium of 2.4 and magnesium 1.1. Overnight given total potassium chloride 40 mEq, magnesium 2 g, calcium gluconate x1. 04/12/2025: Potassium improved to 4.7 at midnight. Calcium improved to 8.7, phosphorus 2.6, magnesium 2.3. ?Keep potassium above 4 and magnesium above 2 - Feeding via NG tube, adjust sodium content if any. #Acute on chronic normocytic anemia #Protein calorie malnutrition Patient presented with altered mental status and acute metabolic encephalopathy, unclear etiology. Appears to have poor oral intake as the patient was also noted to have severely low albumin at 1.5 as well as total protein at 2.5. Hemoglobin 7.6. In setting of acute gastritis and severe malnutrition. BMI 19.6. ? NG tube feeds as above - Workup per primary team #Rim-oovyowk-rkhhkeqqs type 2 diabetes #Hx of LT foot metatrasal amputation and RT foot 2nd digit amputation A1c 8.1. Home meds include metformin 1000 mg twice daily. ?SSI per primary team #Acute encephalopathy in setting of #Hypotonic hyponatremia, severe #Left base PNA, possibly aspiration #Right upper lobe pulmonary nodules #Bilateral pleural effusions, small #Pancytopenia #Proctitis, likely acute #Seizure disorder #Hyperlipidemia #Constipation Vs. bowel ileus #Tinea Capitis #Nasal lesion, possibly basal cell carcinoma #Axillary lymphadenopathy #Baseline dementia #History of questionable PAD with transmetatarsal amputation and right toe amputation #COPD Time Spent With Patient Time: Total time spent is greater than 50% in coordination of care (as documented) at patient's floor/unit and/or counseling patient:
--- NOTE | 2025-05-01 08:06 | PC.CC ---
HH ref sent to [facility] for SATISH, waiting for response
--- NOTE | 2025-05-02 10:55 | PC.CM ---
[facility] accepted patient and they will open patient on 05/02.
[2025-05-09 06:15] LABS: Cortisol,total,LC/MS/MS* 7.7 mcg/dL
== END 2025-04-30 17:40 | disposition home health service (06) | DRG 871 ==
LOC: SERX 22:25 → SERHOLD 22:55 → S2SX 04-12 00:07 → S2NX 04-13 23:08
PROVIDERS: Student in an Organized Health Care Education/Training Program; Admitting Provider Internal Medicine; Emergency Provider Emergency Medicine; Visit Provider Internal Medicine
DX: A41.01 Sepsis due to Methicillin susceptible Staphylococcus aureus (principal); E43 Unspecified severe protein-calorie malnutrition; G93.41 Metabolic encephalopathy; J18.9 Pneumonia, unspecified organism; R65.21 Severe sepsis with septic shock; J69.0 Pneumonitis due to inhalation of food and vomit; E87.0 Hyperosmolality and hypernatremia; Z68.1 Body mass index [BMI] 19.9 or less, adult; D61.818 Other pancytopenia; E87.1 Hypo-osmolality and hyponatremia; E87.20 Acidosis, unspecified; R64 Cachexia; I50.32 Chronic diastolic (congestive) heart failure; E72.20 Disorder of urea cycle metabolism, unspecified; G40.909 Epilepsy, unspecified, not intractable, without status epilepticus; E78.5 Hyperlipidemia, unspecified; Z95.1 Presence of aortocoronary bypass graft; I25.10 Atherosclerotic heart disease of native coronary artery without angina pectoris; F03.90 Unspecified dementia, unspecified severity, without behavioral disturbance, psychotic disturbance, mood disturbance, and anxiety; Z74.01 Bed confinement status; T68.XXXA Hypothermia, initial encounter; R00.1 Bradycardia, unspecified; R59.0 Localized enlarged lymph nodes; R91.1 Solitary pulmonary nodule; K29.70 Gastritis, unspecified, without bleeding; K62.89 Other specified diseases of anus and rectum; E87.6 Hypokalemia; E83.42 Hypomagnesemia; B35.0 Tinea barbae and tinea capitis; E83.39 Other disorders of phosphorus metabolism; E83.51 Hypocalcemia; Z79.84 Long term (current) use of oral hypoglycemic drugs; E11.65 Type 2 diabetes mellitus with hyperglycemia; E11.649 Type 2 diabetes mellitus with hypoglycemia without coma; D63.8 Anemia in other chronic diseases classified elsewhere; E87.8 Other disorders of electrolyte and fluid balance, not elsewhere classified; E88.09 Other disorders of plasma-protein metabolism, not elsewhere classified; G40.409 Other generalized epilepsy and epileptic syndromes, not intractable, without status epilepticus; I11.0 Hypertensive heart disease with heart failure; K59.00 Constipation, unspecified; M85.80 Other specified disorders of bone density and structure, unspecified site; R13.10 Dysphagia, unspecified; R62.7 Adult failure to thrive; Z78.1 Physical restraint status; Z79.02 Long term (current) use of antithrombotics/antiplatelets; Z79.4 Long term (current) use of insulin; Z79.82 Long term (current) use of aspirin; Z79.899 Other long term (current) drug therapy; Z86.73 Personal history of transient ischemic attack (TIA), and cerebral infarction without residual deficits; Z88.0 Allergy status to penicillin; J44.89 Other specified chronic obstructive pulmonary disease; I25.2 Old myocardial infarction; K29.00 Acute gastritis without bleeding; Z98.61 Coronary angioplasty status; I44.1 Atrioventricular block, second degree; I49.3 Ventricular premature depolarization; E86.1 Hypovolemia; B86 Scabies; I35.0 Nonrheumatic aortic (valve) stenosis; Z88.8 Allergy status to other drugs, medicaments and biological substances; Z91.0120 Allergy to eggs, unspecified; L30.9 Dermatitis, unspecified
CPT/HCPCS: 36415; 36600; 70450; 71045; 71250; 74176; 74230; 76705; 80048; 80053; 80061; 80069; 80074; 80202; 80307; 80320; 81001; 82010; 82140; 82248; 82533; 82550; 82607; 82746; 82803; 83036; 83540; 83550; 83605; 83615; 83690; 83735; 83880; 84100; 84132; 84145; 84295; 84425; 84439; 84443; 84484; 85007; 85025; 85027; 85046; 85379; 85384; 85610; 85652; 85730; 86038; 86140; 86331; 86635; 86703; 86850; 86900; 86901; 86923; 87040; 87077; 87081; 87177; 87186; 87205; 87209; 87400; 87449; 87811; 92526; 92610; 93005; 93306; 93971; 94640; 94667; 94762; 96365; 96366; 96375; 99285; A9270; J0360; J0612; J0613; J0692; J0696; J1265; J1650; J1815; J1938; J1953; J2405; J2470; J2919; J3370; J3373; J3411; J3475; J3480; J3490; J7030; J7050; J7060; J7070; J7999; P9016; P9047; G0480; J1836; P0947